=== PATIENT | male | born 1950 | race Caucasian/White ===

== ENCOUNTER → 2020-03-23 10:14 | Outpatient (CLI) | payer MEDICARE, SELFPAY ==
[2020-03-23 10:47] LABS: Basophils % 0.5 % (0.1-2.0); Eosinophils # 0.1 K/mm3 (0.0-0.4); Eosinophils % 1.9 % (0.1-12.0); Hematocrit 45.5 % (42.0-52.0); Hemoglobin 14.8 g/dL (14.1-18.0); Lymphocytes # 1.1 K/mm3 (0.7-4.5); Mean Corpuscular HGB Conc 32.5 g/dL (31.8-35.4); Mean Corpuscular Hemoglobin 30.4 pg (27.0-31.2); Mean Corpuscular Volume 93.5 fl (80-94); Mean Platelet Volume 11.7 fl (7.4-10.4); Monocytes # 0.5 K/mm3 (0.1-1.0); Monocytes % 7.7 % (1.7-9.3); Neutrophils # 4.4 K/mm3 (1.8-7.8); Neutrophils % 71.8 % (37.0-80.0); Platelet Count 162 K/mm3 (142-424); Red Blood Count 4.87 M/mm3 (4.60-6.20); White Blood Count 6.1 K/mm3 (4.8-10.8)
[2020-03-23 11:04] LABS: Chloride 105 mmol/L (98-107); Potassium 4.2 mmoL/L (3.5-5.1); Sodium 138 mmol/L (136-145)
[2020-03-23 11:07] LABS: Anion Gap 12.2 mEq/L (5-15); Blood Urea Nitrogen 11 mg/dl (9-20); Carbon Dioxide 25 mmol/L (22.0-30.0); Estimated Glomerular Filt Rate 83 ml/min (>60); GFR (African American) 101 ML/MIN (>60)
[2020-03-23 11:08] LABS: Calcium 10.2 mg/dl (8.4-10.2); Glucose 171 mg/dl (74-100)
== END ==
PROVIDERS: Visit Provider Urology
DX: I10 Essential (primary) hypertension; E78.5 Hyperlipidemia, unspecified; I25.10 Atherosclerotic heart disease of native coronary artery without angina pectoris; I48.91 Unspecified atrial fibrillation; I63.9 Cerebral infarction, unspecified; K21.9 Gastro-esophageal reflux disease without esophagitis; Z95.0 Presence of cardiac pacemaker
CPT/HCPCS: 36415; 80048; 85025

== ENCOUNTER → 2020-04-08 12:46 | Outpatient (CLI) | payer MEDICARE, SELFPAY ==
--- NOTE | 2020-04-08 12:58 | CA_ITS ---
APPROVED REPORT EXAM: Comprehensive 2D, Doppler, and color-flow Echocardiogram Lens Maker: Latoya Eisenberg CRT Ht: 5 ft 9 in Wt: 170lbs BSA: 1.93 BP: 141/75 mmHg Indications: CAD, Pacer, GERD, Hx CVA, Stents Atrial Fibrillation, Diabetes, Hyperlipidemia, Hypertension/HDD 2D Dimensions LVOT 1.90 cm (M/F) 1.5-2.5 M-Mode Dimensions RVDd 2.88 cm (0.9-2.6) LA Diam 3.45 cm (1.9-4.0) LVDd 4.07 cm (3.5-5.7) Ao Diam 3.76 cm (2.0-3.7) LVDs 2.70 cm (3.5-5.7) IVSd 1.57 cm (0.6-1.1) PWd 1.22 cm (0.6-1.1) EF (Teich) 63.00% FS 33.70% EDV (Teich) 72.90 mL ESV (Teich) 27.00 mL LV Diastology E Decel Time 150.00 (160-240 msec) E/A Ratio 0.62 MED E' 6.50 (< 7 cm/sec) MED A' 11.90 cm/s E'/MED E' Ratio 9.35 (>14) LAT E' 13.40 (<10 cm/sec) LAT A' 9.40 cm/s E/LAT E' Ratio 4.54 (>14) Aortic Valve AI PHT 530.00 ms AO Peak GR. 8.40 mmHg Mitral Valve MV E Max Joe. 61.00 (40-130 cm/s) MV A Velocity 98.00 (40-130 cm/s) E/A Ratio 0.62 MV Decel. Time 150.00 (160-240 ms) MV PHT 44.00 ms Pulmonary Valve PV Peak Velocity 84.00 (50-150 cm/s) Tricuspid Valve TR P. Velocity 236.00 cm/s RAP Estimate 10.00 mmHg RVSP 32.20 mmHg Left Ventricle Left atrium is mildly enlarged, left ventricle is normal size, visually estimated ejection fraction 50%, there is abnormal septal motion, the distal septum and apical wall appears to be hypokinetic. Doppler evidence of impaired LV relaxation seen, tissue Doppler is suboptimal. Right Ventricle Right atrium and right ventricle are normal size and contractility, there is pacemaker leads in the right ventricle. Aortic Valve Aortic valve is minimally thickened and fibrosed, there is no aortic stenosis, there is mild aortic insufficiency. Mitral Valve Mitral valve is minimally thickened, there is mild mitral regurgitation. Tricuspid Valve Tricuspid valve is grossly normal, there is trace tricuspid regurgitation, tricuspid regurgitation jet velocity is inadequate for calculation of the right ventricular systolic pressure. Pulmonic Valve Pulmonic valve is poorly visualized. Great Vessels Aortic root is normal size. Pericardium No significant pericardial effusion noted. Conclusion 1. Mildly enlarged left atrium, normal left ventricular size, mild concentric left ventricular hypertrophy, visually estimated ejection fraction is 50% with segmental wall motion abnormality described above, there is abnormal septal motion. Doppler evidence of impaired LV relaxation seen. 2. Mild aortic, mild mitral and trace tricuspid regurgitation. 3. No significant pericardial effusion noted. Electronically signed by : Yong Hernandez, 04/10/2020 13:42:57
== END ==
PROVIDERS: PCP Family Medicine; Visit Provider Urology
DX: E78.5 Hyperlipidemia, unspecified (principal); I10 Essential (primary) hypertension; I25.10 Atherosclerotic heart disease of native coronary artery without angina pectoris; I48.91 Unspecified atrial fibrillation; I51.7 Cardiomegaly; I63.9 Cerebral infarction, unspecified; K21.9 Gastro-esophageal reflux disease without esophagitis; Z95.0 Presence of cardiac pacemaker
CPT/HCPCS: 93306

== ENCOUNTER → 2020-06-18 07:04 | Outpatient (CLI) | payer MEDICARE, SELFPAY ==
--- NOTE | 2020-06-18 07:14 | NM_ITS ---
APPROVED REPORT Exam: Nuclear Stress Test Indication: chest pain..short of breath..fatigue Patient Location: Outpatient Stress Tech: Susana Claros [place] Tech:SALOMON Swartz RT(R)(N) Ht: 5 ft 8 in Wt: 162 lbs HR: 64 bpm BP: 137/69 mmHg BSA: 1.87 m2 BMI: 24.6 History: chest pain..short of breath..fatigue Procedure: Patient received a 0.4 mg of intravenous Lexiscan, resting heart rate 64 bpm, resting blood pressure 137/69 mmHg, with Lexiscan maximum heart rate achived was 72 bpm which is 85 % of the maximum predicted heart rate and blood pressure was 138/60 mmHg. Electrocardiogram Resting electrocardiogram showed AV sequentially paced rhythm with left bundle branch morphology. With Lexiscan there is less than 1.[address] segment depression noted from the baseline EKG. The EKG portion of the Lexiscan is nondiagnostic. Cardiac Stress and Resting SPECT Images: Cardiac Stress and Resting SPECT images were obtained using technetium 99m Myoview 31.6 mCi stress and 10.15 mCi at rest. Gated SPECT for analysis of segmental wall motion and calculation of the ejection fraction also done. Prone images were also obtained. Cardiac stress and resting SPECT images show a moderate to large sized area of fixed defect involving the anterior, anterior apical apical, inferior apical and anterolateral wall consistent with extensive area of myocardial scarring with minimal adams-infarct ischemia. Computer derived ejection fraction is 40% with marked hypokinesis involving the anterior, anterior apical, apex, inferior apical and anterolateral wall. Right ventricle is normal size and contractility. There is transient ischemic dilatation of the left ventricle seen, raising the concerns for presence of multivessel coronary artery disease. Conclusion: 1. The EKG portion of the Lexiscan is nondiagnostic. 2. Scintigraphic evidence of extensive myocardial scarring as described above, with minimal adams-infarct ischemia, there is transient ischemic dilatation of the left ventricle seen, raising concerns for presence of multivessel coronary artery disease, computer derived ejection fraction is 40% with segmental wall motion abnormality as described above. 3. Abnormal Lexiscan Myoview study. Electronically signed by : Yong Hernandez, 06/18/2020 16:06:16
--- NOTE | 2020-06-18 08:30 | CA_ITS ---
APPROVED REPORT Exam: Pharmacologic Technologist: Radha Anderson, Ht: 5 ft 9 in Wt: 170 lbs BSA: 1.93 m2 HR: 64 bpm BP: 137/69 mmHg Rhythm: AV SEQUENTIAL PACED RHYTHM Medical History Medical History: HTN, Diabetes Medications: Metformin,,,,, Carvedilol,,,,, Glipizide,,,,, Ramipril,,,,, INSULIN,,,,, CloPIdogrel,,,,, RIvaROXABAN,,,,, EMpagliflozin,,,,, PraAVASTATIN,,,,, Allergies: No known drug allergies Cardiac Risk Factors: HTN, SOB Stress Test Details Test: LEXISCAN HR Resting HR: 60 bpm Max Heart Rate (APMHR): 150.506248 bpm Max HR Achieved: 78 bpm Target HR (85% APMHR): 127.990887 bpm % of APMHR: 52.00 BP Resting BP: 137/69 mmHg Max BP: 141/64 mmHg Recovery BP: 140.0/68.0 mmHg ECG Clinical Exercise duration: 04:33 min Highest Stage Achieved: Exercise capacity: 1.0 METs Stress ECG Conclusion MILD CHEST TIGHTNESS, QUIZZY STOMACH HEADACHE. OCC VENTRICULAR ECTOPIC BEAT. NO SIGNIFICANT CHANGES. Electronically signed by : Yong Hernandez, 06/18/2020 15:44:22
== END ==
PROVIDERS: PCP Family Medicine; Visit Provider Urology
DX: R07.89 Other chest pain (principal); R06.02 Shortness of breath; R94.31 Abnormal electrocardiogram [ECG] [EKG]
CPT/HCPCS: 78452; 93017; A9502; J2785

== ENCOUNTER → 2020-06-29 18:13 | Outpatient (CLI) | payer MEDICARE, SELFPAY ==
[2020-06-29 18:56] LABS: Basophils % 0.8 % (0.1-2.0); Eosinophils # 0.2 K/mm3 (0.0-0.4); Eosinophils % 3.3 % (0.1-12.0); Hematocrit 44.5 % (42.0-52.0); Lymphocytes # 1.1 K/mm3 (0.7-4.5); Lymphocytes % 22.6 % (10-50); Mean Corpuscular HGB Conc 31.5 g/dL (31.8-35.4); Mean Corpuscular Hemoglobin 28.4 pg (27.0-31.2); Mean Corpuscular Volume 90.3 fl (80-94); Mean Platelet Volume 7.7 fl (7.4-10.4); Monocytes # 0.5 K/mm3 (0.1-1.0); Monocytes % 10.4 % (1.7-9.3); Neutrophils # 3.1 K/mm3 (1.8-7.8); Neutrophils % 62.8 % (37.0-80.0); Platelet Count 143 K/mm3 (142-424); Red Blood Count 4.93 M/mm3 (4.60-6.20); Red Cell Distribution Width 14.6 % (11.5-17.5); White Blood Count 4.9 K/mm3 (4.8-10.8)
[2020-06-29 19:42] LABS: Chloride 103 mmol/L (98-107); Sodium 137 mmol/L (136-145)
[2020-06-29 19:45] LABS: Anion Gap 13.2 mEq/L (5-15); Blood Urea Nitrogen 20 mg/dl (9-20); Carbon Dioxide 25 mmol/L (22.0-30.0); Estimated Glomerular Filt Rate 66 ml/min (>60); GFR (African American) 80 ML/MIN (>60); Potassium 4.2 mmoL/L (3.5-5.1)
[2020-06-29 19:46] LABS: Calcium 9.8 mg/dl (8.4-10.2); Glucose 164 mg/dl (74-100)
== END ==
PROVIDERS: Urology; PCP Family Medicine; Visit Provider Internal Medicine
DX: Z01.810 Encounter for preprocedural cardiovascular examination; Z20.822 Contact with and (suspected) exposure to COVID-19; R06.02 Shortness of breath; R94.39 Abnormal result of other cardiovascular function study; I20.9 Angina pectoris, unspecified; I48.11 Longstanding persistent atrial fibrillation; E11.9 Type 2 diabetes mellitus without complications; E78.49 Other hyperlipidemia; I51.7 Cardiomegaly; K21.9 Gastro-esophageal reflux disease without esophagitis; T82.120A Displacement of cardiac electrode, initial encounter; Z95.0 Presence of cardiac pacemaker; Z79.4 Long term (current) use of insulin; I63.89 Other cerebral infarction
CPT/HCPCS: 80048; 85025; U0003

== ENCOUNTER 2020-07-01 08:30 | Day surgery (SDC) | payer MEDICARE, SELFPAY ==
[2020-07-01] VITALS (11 sets, daily range): BP systolic 90–134; BP diastolic 43–97; PULSE 60–70; RESP 16–18; TEMP 36.4; O2SAT 86–100; BMI 25.5
--- NOTE | 2020-07-01 07:09 | IR_ITS ---
APPROVED REPORT Patient Location: Outpatient PROCEDURES Left heart catheterization Left ventriculogram Selective coronary angiogram INDICATION Angina pectoris, Abnormal Myoview, Known coronary disease Informed consent was obtained prior to the procedure. COMPLICATIONS None Estimated Blood Loss: Less than 10 mls TECHNIQUE One percent lidocaine used to anesthetize the right anterior aspect of the wrist. The right radial artery was accessed via the Seldinger technique. A 6 Surinamese sheath was placed in the right radial artery. 2.5 mg of verapamil, 800 mcg of nitroglycerin, 1mg Lidocaine and 5000 U Heparin were given through the arterial sheath. The trap catheter was also used to perform left heart catheterization, left ventriculogram and selective coronary angiogram. At the end of the procedure the sheath was removed good hemostasis was achieved using Traclet band, patient was transferred to the postop holding area in stable condition. ANGIOGRAPHIC RESULTS The left main artery Normal The left anterior descending artery Is proximally normal with stents in the mid segment which are widely patent. The second diagonal artery has a stent in the ostial proximal segment which is occluded with no collateralization The circumflex artery Is a nondominant vessel with mid vessel 10 to 20% stenosis The right coronary artery Is a large dominant vessel with mild mid vessel and distal 30% stenoses The LEWIS ventriculogram reveals 40% The left ventricular end-diastolic pressure 10 mmHg IMPRESSION Adequate coronary revascularization as described above with chronically occluded second diagonal artery Reduced ejection fraction Normal left ventricular end-diastolic pressure PLAN 1. Continue medical management 2. Consider TRAIN MASTER-P given pacemaker dependency and reduced ejection fraction Electronically signed by : Marco A Gavin, 07/01/2020 12:39:14
== END 2020-07-01 15:18 | disposition home or self-care (01) ==
LOC: CATHLAB 08:33
PROVIDERS: PCP Family Medicine; Visit Provider Internal Medicine
DX: I25.119 Atherosclerotic heart disease of native coronary artery with unspecified angina pectoris (principal); E11.9 Type 2 diabetes mellitus without complications; E78.49 Other hyperlipidemia; I10 Essential (primary) hypertension; I42.9 Cardiomyopathy, unspecified; I48.11 Longstanding persistent atrial fibrillation; I51.7 Cardiomegaly; K21.9 Gastro-esophageal reflux disease without esophagitis; R06.02 Shortness of breath; R94.39 Abnormal result of other cardiovascular function study; T82.120A Displacement of cardiac electrode, initial encounter; Z95.0 Presence of cardiac pacemaker
CPT/HCPCS: 93458; 99152; C1725; C1769; J1644; Q9967

== ENCOUNTER → 2022-05-25 08:32 | Outpatient (CLI) | payer MEDICARE, MEDICAID, SELFPAY ==
--- NOTE | 2022-05-25 08:36 | CA_ITS ---
APPROVED REPORT EXAM: Comprehensive 2D, Doppler, and color-flow Echocardiogram [employer] Technician: MENDEL Wilson, RVS Ht: 5 ft 9 in Wt: 176lbs BSA: 1.96 BP: 125/63 mmHg Rhythm: Atrial Fibrillation Indications: Pre- Pacer battery change, Pacer,CAD-stents, CVA, Falls, HTN, HLD,DM, Edema, Smoker, Afib, CP, SOB 2D Dimensions IVSd 1.01 cm M: 0.6-1.2 LVEF (Visual) 44.80 % PWd 1.07 cm M: 0.6 - 1.2 LVDd 4.27 cm M: 4.2 - 5.9 LVDs 3.33 cm M: 2.5 - 4.0 Aortic Root 3.73 cm M: 3.1 - 3.7 Left Atrium 3.42 cm M: 3.0 - 4.0 LVOT 1.82 cm (M/F) 1.5-2.5 M-Mode Dimensions RVDd 2.72 cm (0.9-2.6) LA Diam 3.66 cm (1.9-4.0) LVDd 5.69 cm (3.5-5.7) Ao Diam 3.91 cm (2.0-3.7) LVDs 3.56 cm (3.5-5.7) IVSd 1.04 cm (0.6-1.1) PWd 0.82 cm (0.6-1.1) EF (Teich) 59.60% EPSs 0.90 cm FS 31.90% EDV (Teich) 131.20 mL TAPSE 1.41 (<1.7) ESV (Teich) 53.00 mL LV Diastology E Decel Time 183.00 (160-240 msec) E/A Ratio 2.75 MED E' 8.60 (< 7 cm/sec) MED A' 5.40 cm/s E'/MED E' Ratio 9.93 (>14) Aortic Valve LVOT Max 91.00 (70-110 cm/s) LVOT VTI 21.42 cm AoV Peak Joe. 173.00 (50-130 cm/s) AI PHT 674.00 ms AO Peak GR. 11.90 mmHg AO Mean GR. 5.90 (<5 mmHg) AO VTI 32.71 (18-25 cm) QUINN (VTI) 1.70 (2.5-4.5 cm2) Mitral Valve MV A Velocity 31.00 (40-130 cm/s) E/A Ratio 2.75 MV Decel. Time 183.00 (160-240 ms) MV PHT 67.00 ms Pulmonary Valve PV Peak Velocity 94.00 (50-150 cm/s) AL End VMAX 118.00 cm/s Tricuspid Valve TR P. Velocity 236.00 cm/s RAP Estimate 10.00 mmHg RVSP 32.30 mmHg Left Ventricle Left atrium is mildly enlarged, left ventricle is normal size mild concentric left ventricular hypertrophy, estimated ejection fraction approximately 45%, there is marked hypokinesis involving distal septum and anterior apical wall. Grade 1 diastolic dysfunction seen without tissue Doppler evidence of raise left atrial pressure. Right Ventricle Right atrium and right ventricular mildly enlarged with normal contractility, pacemaker leads in the right ventricle. Aortic Valve Aortic valve is minimally thickened and calcified without aortic stenosis, there is mild aortic insufficiency. Mitral Valve Mitral valve is grossly normal, there is trace mitral regurgitation. Tricuspid Valve Tricuspid valve grossly normal, there is trace tricuspid regurgitation, tricuspid regurgitation jet velocity is inadequate for calculation of the right ventricular systolic pressure. Pulmonic Valve Pulmonic valve is poorly visualized. Great Vessels Aortic root is normal size. Inferior vena cava is poorly visualized. Pericardium No significant pericardial effusion noted. Conclusion 1. Mild biatrial enlargement, normal left ventricular size, mild concentric left ventricular hypertrophy, estimated ejection fraction 45% with segmental wall motion abnormality described above, grade 1 diastolic dysfunction seen without tissue Doppler evidence of raise left atrial pressure. 2. Mild aortic, trace mitral and tricuspid regurgitation. 3. No significant pericardial effusion noted. 4. Inferior vena cava is poorly visualized. Electronically signed by : Yong Hernandez MD 05/26/2022 05:53:50
== END ==
PROVIDERS: PCP Family Medicine; Visit Provider Internal Medicine
DX: I10 Essential (primary) hypertension (principal); I42.9 Cardiomyopathy, unspecified; R06.02 Shortness of breath; R29.6 Repeated falls; R42 Dizziness and giddiness; Z95.0 Presence of cardiac pacemaker; I20.8 Other forms of angina pectoris
CPT/HCPCS: 93306

== ENCOUNTER 2022-06-08 08:44 | Day surgery (SDC) | payer MEDICARE, MEDICAID, SELFPAY ==
--- NOTE | 2022-06-08 | IR_ITS ---
APPROVED REPORT Patient Location: Outpatient Boat Loader: SALOMON Carey RT (R) PROCEDURES 1. Removal of old generator. 2. Pocket revision for biventricular pacemaker generator with cardiac resynchronization therapy. 3. Placement of atrial sensing and pacing lead into the right atrial appendage. 4. Capping of chronic atrial 5. Placement of left ventricular sensing pacing lead via the coronary sinus. 6. Permanent cardiac resynchronization therapy with biventricular pacemaker. INDICATION Declining EF, 45%, 100% Ventricular pacer dependent, Fractured atrial lead Informed consent was obtained prior to the procedure. COMPLICATIONS None Estimated Blood Loss: Less than 10 ml TECHNIQUE 1% Lidocaine with epinephrine used to anesthetized the left anterior aspect of the chest. Scalpel was used to make the initial cutaneous incision and to dissect down tinto the fascia. Generator removed from pocket and then revised, creating a pocket for the HAND EMBROIDERER- pacemaker. The patient was then placed in Trendelenburg position and the subclavian vein was accessed three times via the Selinger technique, there are three wires in the vein. A 9.5 Ecuadorean sheath and dilator was then placed over one of the wires while keeping the other two wires in place within the subclavian vein. The dilator was removed from the sheath. Using fluoroscopic guidance, contrast was used to visualize the coronary sinus, the left ventricular lead was placed into the coronary sinus. Electronic interrogation proved acceptable thresholds and voltage within the lead. Using 3-0 silk, the left ventricular lead was then secured into place and sheath peeled away. A 6 Ecuadorean fresh sheath and dilator was placed over the existing wire. Using fluoroscopic guidance, the atrial lead was the placed into the right atrial appendage and screwed and secured in place. Electrical interrogation demonstrated acceptable thresholds and voltage number. The atrial lead was then secured into place using 3-0 silk. Chronic atrial lead was cut and capped. All 3 leads were connected to the generator. 1 gram of Ancef was used to flush the pocket. Following the pacemaker generator being secured to the fascia and in place, Monocryl was used to close the subcutaneous layers while marina were used to close the cutaneous layer. A pressure dressing was placed and the patient was transferred to the postop holding area in stable condition for postoperative care. INTERROGATION Explanted Generator Model number: [id number] Explanted Generator Serial number: [id number] Generator Model number: [id number] Generator Serial number: [id number] Capped Atrial lead model number: [id number] Capped Atrial lead serial number: [id number] Atrial lead model number: [id number] Atrial lead serial number: [id number] P-wave: 2.0mV Impedence: 460 ohms Threshold: 1.0V@0.4ms Right Ventricular lead model number: [id number] Right Ventricular lead serial number: [id number] Impedence: 400 ohms Threshold: 1.0V@0.4ms Left Ventricular lead model number: [id number] Left Ventricular lead serial number: [id number] Impedence: 1200 ohms Threshold: 0.5V@0.4ms No diaphragmatic stimulation at 10 volts. IMPRESSION 1. Successful removal of old generator. 2. Successful Pocket revison for biventricular pacemaker generator with cardiac resynchronization therapy. 3. Successful Placement of atrial sensing and pacing lead into the right atrial appendage. 4. Successful Capping of chronic atrial 5. Successful Placement of left ventricular sensing pacing lead via the coronary sinus. 6. Successful Permanent cardiac resynchronization therapy with biventricular pacemaker. PLAN 1. Post
[2022-06-08 08:53] VITALS: BMI 25.9
[2022-06-08 09:30] VITALS: PULSE 60
[2022-06-08 09:43] LABS: Basophils # 0.1 K/mm3 (0-0.2); Eosinophils # 0.1 K/mm3 (0.0-0.4); Eosinophils % 2.6 % (0.1-12.0); Hematocrit 44.4 % (42.0-52.0); Hemoglobin 14.2 g/dL (14.1-18.0); Lymphocytes % 19.9 % (10-50); Mean Corpuscular Volume 93.9 fl (80-94); Monocytes # 0.4 K/mm3 (0.1-1.0); Monocytes % 7.7 % (1.7-9.3); Neutrophils # 3.5 K/mm3 (1.8-7.8); Neutrophils % 68.9 % (37.0-80.0); Platelet Count 149 K/mm3 (142-424); Red Blood Count 4.74 M/mm3 (4.60-6.20); Red Cell Distribution Width 14.9 % (11.5-17.5); White Blood Count 5.1 K/mm3 (4.8-10.8)
[2022-06-08 09:49] LABS: Chloride 100 mmol/L (98-107); Potassium 4.6 mmoL/L (3.5-5.1); Sodium 135 mmol/L (136-145)
[2022-06-08 09:52] LABS: Anion Gap 14.6 mEq/L (5-15); Blood Urea Nitrogen 15 mg/dl (9-20); Calcium 10.4 mg/dl (8.4-10.2); Carbon Dioxide 25 mmol/L (22.0-30.0); Creatinine Clearance Estimated 75 mL/min (50-200); Estimated Glomerular Filt Rate 73 ml/min (>60); GFR (African American) 89 ML/MIN (>60); Glucose 223 mg/dl (74-100)
--- NOTE | 2022-06-08 12:09 | XR_ITS ---
FINAL REPORT CLINICAL HISTORY: Confirm pacemaker/AID placement COMPARISON: 01/22/2019 FINDINGS: SINGLE-VIEW CHEST There is mild cardiomegaly. Biventricular pacer is identified. The mediastinum is normal. There is little bit of scarring at the lung bases. The lungs are otherwise clear. There is no pneumothorax. IMPRESSION: No acute cardiopulmonary process. Reviewed, Interpreted and Dictated by Bossman Baron MD Transcribed by Yessica Azul Authenticated and [facility]
[2022-06-08 12:16] VITALS: BP 127/70; PULSE 60; RESP 20; O2SAT 95
--- NOTE | 2022-06-08 12:22 | P.PN_ITS ---
[facility] Disclaimer: The information contained in this section may have been updated after the patient was seen, as this information can be updated by other users. Medical History Abnormal cardiovascular stress test Cardiomyopathy Displacement of atrial pacemaker leads SOB (shortness of breath) Typical angina Family History (Updated 06/08/22 @ 09:31 by Lida Smith RN) Other Family history of cancer Social History (Updated 06/08/22 @ 09:32 by Lida Smith RN) Smoking Status: Current every day smoker tobacco type: smokeless tobacco second hand exposure: No alcohol intake: never substance use type: denies use current occupational status: retired Travel in the last 8 weeks: Inside the [place] household members: spouse housing: house current occupational exposures/hazards: No caffeine: Yes [facility] Anesthesia Checklist Patient Identification Patient Identification: Arm Band Structural Data Admitted From: Home Planned Operative Procedure/s: Pacemaker placement Consent for Planned Operative Procedure(s) Verified: Yes Verified Documents: Surgical Consent and History and Physical NPO Status Verified Time NPO: 00:00 Additional verifications Patient : No Anesthesia Reactions: No Hx Blood Transfusions: No Blood Transfusion Reaction: No Cephalosporin Allergy: No Previous Colonoscopy: Yes Airway Assessment C-Spine Mobility Assessed: Yes TMJ Mobility Assessed: Yes Dentition: Edentulous Neurological Assessment Level of Consciousness: Awake, Alert, Appropriate and Follows Commands Hx Seizures: No Numbness or tingling in extremities: No Anesthesia Plan Anesthesia Risk discussed: Yes ASA Class: III Anesthesia Type: MAC Preoperative Comments Pre-Operative Comments: 3 degree AV Block. Bradycardia 20-30s. NIDDM. Hypertension.
--- NOTE | 2022-06-08 12:27 | P.PN_ITS ---
[facility] Disclaimer: The information contained in this section may have been updated after the patient was seen, as this information can be updated by other users. Medical History Abnormal cardiovascular stress test Cardiomyopathy Displacement of atrial pacemaker leads SOB (shortness of breath) Typical angina Family History (Updated 06/08/22 @ 09:31 by Lida Smith RN) Other Family history of cancer Social History (Updated 06/08/22 @ 09:32 by Lida Smith RN) Smoking Status: Current every day smoker tobacco type: smokeless tobacco second hand exposure: No alcohol intake: never substance use type: denies use current occupational status: retired Travel in the last 8 weeks: [place] the [place] household members: spouse housing: house current occupational exposures/hazards: No caffeine: Yes [facility] Anesthesia Checklist Structural Data Planned Operative Procedure/s: Pacemaker placement Additional verifications Anesthesia Reactions: No Hx Blood Transfusions: No Blood Transfusion Reaction: No Cephalosporin Allergy: No Anesthesia Plan Anesthesia Type: MAC
--- NOTE | 2022-06-08 12:28 | P.PN_ITS ---
[facility] Disclaimer: The information contained in this section may have been updated after the patient was seen, as this information can be updated by other users. Medical History Abnormal cardiovascular stress test Cardiomyopathy Displacement of atrial pacemaker leads SOB (shortness of breath) Typical angina Family History (Updated 06/08/22 @ 09:31 by Lida Smith RN) Other Family history of cancer Social History (Updated 06/08/22 @ 09:32 by Lida Smith RN) Smoking Status: Current every day smoker tobacco type: smokeless tobacco second hand exposure: No alcohol intake: never substance use type: denies use current occupational status: retired Travel in the last 8 weeks: [place] the [place] household members: spouse housing: house current occupational exposures/hazards: No caffeine: Yes [facility] Anesthesia Checklist Structural Data Planned Operative Procedure/s: pacemaker placement Additional verifications Anesthesia Reactions: No Hx Blood Transfusions: No Blood Transfusion Reaction: No Cephalosporin Allergy: No Anesthesia Plan Anesthesia Type: MAC
--- NOTE | 2022-06-08 12:29 | EXP.ANES.CKL ---
[facility] Disclaimer: The information contained in this section may have been updated after the patient was seen, as this information can be updated by other users. Medical History Abnormal cardiovascular stress test Cardiomyopathy Displacement of atrial pacemaker leads Prostate cancer SOB (shortness of breath) Typical angina Surgical History History of cardiac catheterization Family History Other Family history of cancer Social History Smoking Status: Unknown if ever smoked second hand exposure: No alcohol intake: never substance use type: denies use current occupational status: retired Travel in the last 8 weeks: [place] the [place] household members: spouse housing: house current occupational exposures/hazards: No caffeine: Yes [facility] Anesthesia Checklist Patient Identification Patient Identification: Arm Band Structural Data Admitted From: Home Planned Operative Procedure/s: biventricular pacemaker Verified Documents: Surgical Consent and History and Physical NPO Status Verified Time NPO: 00:00 Additional verifications Patient : No Anesthesia Reactions: No Hx Blood Transfusions: No Blood Transfusion Reaction: No Cephalosporin Allergy: No Previous Colonoscopy: No Airway Assessment C-Spine Mobility Assessed: Yes TMJ Mobility Assessed: Yes Dentition: Edentulous Neurological Assessment Level of Consciousness: Awake and Appropriate Hx Seizures: No Numbness or tingling in extremities: No Anesthesia Plan ASA Class: III Anesthesia Type: MAC
[2022-06-08 12:30] VITALS: BP 142/75; PULSE 60; RESP 18; O2SAT 99
--- NOTE | 2022-06-08 12:31 | P.PN_ITS ---
[facility] Disclaimer: The information contained in this section may have been updated after the patient was seen, as this information can be updated by other users. Medical History Abnormal cardiovascular stress test Cardiomyopathy Displacement of atrial pacemaker leads SOB (shortness of breath) Typical angina Family History (Updated 06/08/22 @ 09:31 by Lida Smith RN) Other Family history of cancer Social History (Updated 06/08/22 @ 09:32 by Lida Smith RN) Smoking Status: Current every day smoker tobacco type: smokeless tobacco second hand exposure: No alcohol intake: never substance use type: denies use current occupational status: retired Travel in the last 8 weeks: [place] the [place] household members: spouse housing: house current occupational exposures/hazards: No caffeine: Yes [facility] Anesthesia Checklist Patient Identification Patient Identification: Arm Band Structural Data Admitted From: Home Planned Operative Procedure/s: Pacemaker placement Consent for Planned Operative Procedure(s) Verified: Yes Verified Documents: Surgical Consent and History and Physical NPO Status Verified Time NPO: 00:00 Additional verifications Patient : No Anesthesia Reactions: No Hx Blood Transfusions: No Blood Transfusion Reaction: No Cephalosporin Allergy: No Previous Colonoscopy: No Airway Assessment C-Spine Mobility Assessed: Yes TMJ Mobility Assessed: Yes Dentition: Edentulous Neurological Assessment Level of Consciousness: Awake, Alert, Appropriate and Follows Commands Hx Seizures: No Numbness or tingling in extremities: No Anesthesia Plan Anesthesia Risk discussed: Yes ASA Class: III Anesthesia Type: MAC Preoperative Comments Pre-Operative Comments: Third degree AV block. NIDDM. Hypertension.
[2022-06-08 12:45] VITALS: BP 142/77; PULSE 60; RESP 17; O2SAT 100
[2022-06-08 13:00] VITALS: BP 151/72; PULSE 60; RESP 18; O2SAT 99
== END 2022-06-08 13:59 | disposition home or self-care (01) ==
LOC: CATHLAB 08:46
PROVIDERS: PCP Family Medicine; Visit Provider Internal Medicine
DX: I42.9 Cardiomyopathy, unspecified (principal)
CPT/HCPCS: 71045; 80048; 85025; C1769; C1898; C1900; C2621; Q9967

== ENCOUNTER 2022-06-09 11:06 | Inpatient (IN) | payer MEDICARE, MEDICAID, SELFPAY ==
[2022-06-09] VITALS (23 sets, daily range): BP systolic 78–182; BP diastolic 52–97; PULSE 65–97; RESP 16–20; TEMP 35.8–38.4; O2SAT 86–100; BMI 26.6; BMI 26.2
--- NOTE | 2022-06-09 | IR_ITS ---
APPROVED REPORT Patient Location: Emergent Spray Gunner: SALOMON Hinojosa RT (R) PROCEDURES Emergent pericardiocentesis Placement of pericardial pigtail catheter drain INDICATION Pericardial effusion, Cardiac tamponade Informed consent was obtained prior to the procedure. COMPLICATIONS None TECHNIQUE Patient was taken to the Refrigeration Service Technician sterilely prepped and given Versed fentanyl and propofol under anesthesia as direct care. 1% lidocaine was used anesthetize the subxiphoid area and the pericardial space was accessed via the Salinger technique. A wire was then advanced and a dilator was placed into the pericardial space to create a tract. A pigtail catheter was then advanced and 400 cc of bloody aspirate was removed. Upon removal of the foreign cc there was complete resolution of the pericardial effusion. Patient tolerated the procedure well. At the end of the procedure the pigtail catheter was secured in place with 2-0 silk. Patient was transferred to the postop holding her stable condition with plans to admit IMPRESSION Postcardiac resynchronization therapy pacemaker induced pericardial effusion with subsequent cardiac tamponade Successful pericardiocentesis with complete resolution of cardiac tamponade Persistence of pericardial drain within the pericardial space PLAN 1. Supportive care for the next 24 hours 2. Repeat echocardiogram in the morning to assess for recurrence of pericardial effusion 3. Hold all anticoagulation 4. Keep pericardial drain to gravity assist Electronically signed by : Marco A Gavin MD 06/09/2022 11:54:35
--- NOTE | 2022-06-09 10:57 | ECG_ITS ---
APPROVED REPORT Exam: Resting ECG HR:71 bpm ECG Measurements Heart Rate 71 AXES OK 158 P -48 QRSd 142 QRS 196 QT 411 T -43 QTc 434 Conclusion ELECTRONIC VENTRICULAR PACEMAKER ABNORMAL RHYTHM ECG UNCONFIRMED REPORT Electronically signed by : Ramirez Last MD 06/10/2022 17:02:39
--- NOTE | 2022-06-09 11:06 | PC.NURSE ---
Isabell spoke with Dr. Gavin and Dr. Gavin is wanting patient to come to cathlab at this time.
--- NOTE | 2022-06-09 11:07 | HMH.EDGENADL ---
Discharge Plan Prescriptions Prescriptions: No Action ICaps [id number] aidx-cg-mp-unit tablet extended release 1 tab PO DAILY Lupron Depot (3 month) 11.25 mg syringe kit 11.25 mg IM [id number] metformin 500 mg tablet 1,000 mg PO BID Hold Instructions: Resume on 06/10/22. Novolog FlexPen U-100 Insulin 100 unit/mL insulin pen 10 unit SUB-Q QPM PRN (Reason: diabetes) glipizide 10 mg tablet 5 mg PO BID pravastatin 20 mg tablet 80 mg PO QHS Jardiance 25 mg tablet 10 mg PO DAILY carvedilol [Coreg] 12.5 mg tablet 12.5 mg PO BID Rx Instructions: must administer with a meal/food ramipril 5 mg capsule See Rx Instructions .ROUTE .COMPLEX Rx Instructions: TAKE 1 CAPSULE BY MOUTH EVERY DAY ramipril 10 mg capsule See Rx Instructions .ROUTE .COMPLEX Rx Instructions: TAKE 1 CAPSULE ONCE DAILY Eliquis 5 mg tablet 5 mg PO BID Discharge ED Provider: Zohra Ivey General Adult HPI General Stated complaint: Surgical problem Time Seen by Provider: 06/09/22 11:08 History of Present Illness HPI narrative: 71-year-old male with on Eliquis presents from outside hospital with hypotension status post pacemaker placement yesterday by Dr. Gavin. States that he went to the emergency department because he was having increasing bleeding from his site and they stated that he had no infectious signs or symptoms had an elevated lactate talk to Dr. Gavin who accepted him to our emergency department for my evaluation. Patient has no significant symptoms right now other than some mild shortness of breath he had no fever no cough no other infectious symptoms. He has not had any of his Eliquis for for 5 days he states. Related Data Home Medications Medication Instructions Recorded Confirmed metformin 500 mg tablet 1,000 mg PO BID sugar 07/07/17 06/08/22 insulin aspart U-100 100 unit/mL 10 unit SUB-Q QPM PRN diabetes 01/18/18 06/08/22 (3 mL) subcutaneous pen (Novolog FlexPen U-100 Insulin aspart) glipizide 10 mg tablet 5 mg PO BID Diabetes 01/22/19 06/08/22 empagliflozin 25 mg tablet 10 mg PO DAILY unknown 03/11/19 06/08/22 (Jardiance) [id number]-min 1 tab PO DAILY Supplement 03/11/19 06/08/22 3,300 unit-5 mg-200mg-75 unit tablet ER (ICaps) leuprolide (3 month) 11.25 mg (3 11.25 mg IM [id number] . 01/06/21 06/08/22 month) intramuscular syringe kit (Lupron Depot) pravastatin 20 mg tablet 80 mg PO QHS Cholesterol 01/06/21 06/08/22 apixaban 5 mg tablet (Eliquis) 5 mg PO BID . 06/08/22 06/08/22 carvedilol 12.5 mg tablet (Coreg) 12.5 mg PO BID . 06/08/22 06/08/22 ramipril 10 mg capsule See Rx Instructions .Route 06/08/22 06/08/22 .COMPLEX . ramipril 5 mg capsule See Rx Instructions .Route 06/08/22 06/08/22 .COMPLEX . Allergies Allergy/AdvReac Type Severity Reaction Status Date / Time No Known Allergies Allergy Verified 05/24/22 10:29 [facility] Disclaimer: The information contained in this section may have been updated after the patient was seen, as this information can be updated by other users. Medical History Abnormal cardiovascular stress test Cardiomyopathy Displacement of atrial pacemaker leads SOB (shortness of breath) Typical angina Family History (Updated 06/08/22 @ 09:31 by Lida Smith RN) Other Family history of cancer Social History (Updated 06/08/22 @ 09:32 by Lida Smith RN) Smoking Status: Current every day smoker tobacco type: smokeless tobacco second hand exposure: No alcohol intake: never substance use type: denies use current occupational status: retired Travel in the last 8 weeks: Inside the [place] household members: spouse housing: house current occupational exposures/hazards: No caffeine: Yes ROS Obtained: Yes All systems reviewed & no additional complaints except as documente
--- NOTE | 2022-06-09 11:11 | PC.NURSE ---
Patient transported with RN on zoll emergently to lab tester via stretcher per Dr. Gavin's request. at bedside. has personal belongings.
[2022-06-09 11:15] LABS: Coronavirus 19, PCR Not Detected (NotDetected); Influenza A, PCR Not Detected (NotDetected); Influenza B, PCR Not Detected (NotDetected)
--- NOTE | 2022-06-09 11:17 | PC.NURSE ---
Upon arrival to ED, pt A&O x 4, GCS 15. Pale, delayed cap refill with weak radial pulses. HR 72, paced. +weakness with intermittent shortness of air. Clothing removed and warm blankets placed. 20G RAC noted with 2L administered CLINICAL NURSING INSTRUCTOR. at bedside. Personal belongings [place]
[2022-06-09 12:52] LABS: Basophils % 0.2 % (0.1-2.0); Eosinophils # 0.1 K/mm3 (0.0-0.4); Eosinophils % 0.5 % (0.1-12.0); Hematocrit 37.3 % (42.0-52.0); Hemoglobin 11.4 g/dL (14.1-18.0); Lymphocytes # 0.5 K/mm3 (0.7-4.5); Lymphocytes % 5.6 % (10-50); Mean Corpuscular HGB Conc 30.7 g/dL (31.8-35.4); Mean Corpuscular Hemoglobin 29.5 pg (27.0-31.2); Mean Corpuscular Volume 96.2 fl (80-94); Mean Platelet Volume 7.1 fl (7.4-10.4); Monocytes # 0.4 K/mm3 (0.1-1.0); Monocytes % 4.9 % (1.7-9.3); Neutrophils # 7.7 K/mm3 (1.8-7.8); Neutrophils % 88.7 % (37.0-80.0); Platelet Count 123 K/mm3 (142-424); Red Blood Count 3.88 M/mm3 (4.60-6.20); Red Cell Distribution Width 14.8 % (11.5-17.5); White Blood Count 8.7 K/mm3 (4.8-10.8)
--- NOTE | 2022-06-09 12:53 | PC.NURSE ---
Patient arrived to the floor at this time
[2022-06-09 12:54] LABS: MANUAL DIFFERENTIAL MANUAL DIFFERENTIAL (MANUAL DIFF)
[2022-06-09 12:56] LABS: Chloride 107 mmol/L (98-107); Potassium 4.8 mmoL/L (3.5-5.1); Sodium 136 mmol/L (136-145)
[2022-06-09 12:58] LABS: Blood Urea Nitrogen 15 mg/dl (9-20)
[2022-06-09 12:59] LABS: Alanine Aminotransferase 139 U/L (12-78); Albumin Level 3.3 g/dl (3.5-5.0); Albumin/Globulin Ratio 1.5 (1.1-1.8); Alkaline Phosphatase 100 U/L (38-126); Anion Gap 12.8 mEq/L (5-15); Aspartate Amino Transferase 185 U/L (17-59); Bilirubin,Total 1.1 mg/dl (0.2-1.3); Carbon Dioxide 21 mmol/L (22.0-30.0); Creatinine Clearance Estimated 68 mL/min (50-200); Estimated Glomerular Filt Rate 66 ml/min (>60); GFR (African American) 80 ML/MIN (>60); Globulin 2.2 g/dL (1.3-3.2); Glucose 335 mg/dl (74-100); Total Protein,Serum 5.5 g/dl (6.3-8.2)
[2022-06-09 13:06] LABS: Activated Partial Thrombo Time 25.6 seconds (22.8-30.6); INR 1.16 (0.9-1.1); Prothrombin Time 12.4 seconds (10.1-12.5)
[2022-06-09 13:15] LABS: Lymphocytes % 8 % (10-50); Monocytes % 3 % (2-9); Neutrophils % 89 % (42-76); Platelet Estimate Slight Decrease; RBC Morphology Normal; Total Cells Counted 100
--- NOTE | 2022-06-09 13:42 | PC.NURSE ---
[address] Diaz via phone that pt was on unit at this time. states he will make rounds on pt. pt requesting food at this time. ok to give pt cardiac diet at this time per dr diaz
--- NOTE | 2022-06-09 13:47 | EXP.HP ---
History of Present Illness *Admission Date: 06/09/22 *Reason for visit:: pericardial effusion *History of present illness: Mr. Pollock is a 71 year old male with a past medical history of symptomatic bradycardia s/p ppm, CAD s/p PETEY placed in 2019, atrial fibrillation on Eliquis, CVA, HTN, HLD, T2DM, prostate cancer on leuprolide and sarcoidosis who presented to the ED because of bleeding from his surgical wound. Yesterday he had an elective replacement of his pacemaker with a biventricular pacemaker for cardiac resynchronization therapy. He had held his Eliquis 4-5 days prior to this procedure. Despite this measure he presented with profuse bleeding from his surgical site. An echocardiogram revealed cardiac tamponade. Emergent pericardiocentesis was performed and 400cc of bloody aspirate was removed with complete resolution of cardiac tamponade; a pigtail drain in the pericardial space was secured in place with a suture. His initial symptoms of pressure in his chest and dyspnea have significantly decreased. [facility] Disclaimer: The information contained in this section may have been updated after the patient was seen, as this information can be updated by other users. Medical History (Updated 06/09/22 @ 15:18 by Mciah Diaz MD) Abnormal cardiovascular stress test Cardiomyopathy Displacement of atrial pacemaker leads Prostate cancer SOB (shortness of breath) Typical angina Surgical History (Updated 06/09/22 @ 14:42 by Trina Cyr RN) History of cardiac catheterization Family History (Updated 06/08/22 @ 09:31 by Lida Smith RN) Other Family history of cancer Social History (Updated 06/09/22 @ 14:43 by Trina Cyr RN) Smoking Status: Unknown if ever smoked second hand exposure: No alcohol intake: never substance use type: denies use current occupational status: retired Travel in the last 8 weeks: Inside the [place] household members: spouse housing: house current occupational exposures/hazards: No caffeine: Yes Review of Systems Review of Systems Review of systems (narrative): All systems were reviewed and are negative except what is mentioned in the HPI. Meds Home Medications and Allergies Home Medications Medication Instructions Recorded Confirmed Type metformin 500 mg tablet 1,000 mg PO BID sugar 07/07/17 06/08/22 History insulin aspart U-100 100 unit/mL 10 unit SUB-Q QPM PRN diabetes 01/18/18 06/08/22 History (3 mL) subcutaneous pen (Novolog FlexPen U-100 Insulin aspart) glipizide 10 mg tablet 5 mg PO BID Diabetes 01/22/19 06/08/22 History empagliflozin 25 mg tablet 25 mg PO DAILY Heart disease 03/11/19 06/09/22 History (Jardiance) [id number]-[id number]-min 1 tab PO DAILY Supplement 03/11/19 06/08/22 History 3,300 unit-5 mg-200mg-75 unit tablet ER (ICaps) leuprolide (3 month) 11.25 mg (3 11.25 mg IM [id number] . 01/06/21 06/08/22 History month) intramuscular syringe kit (Lupron Depot) apixaban 5 mg tablet (Eliquis) 5 mg PO BID . 06/08/22 06/08/22 History carvedilol 12.5 mg tablet (Coreg) 12.5 mg PO BID Heart disease 06/08/22 06/09/22 History ramipril 10 mg capsule 10 mg PO DAILY Heart disease 06/08/22 06/09/22 History cyanocobalamin (vitamin B-12) 1,000 mcg PO DAILY Supplement 06/09/22 06/09/22 History 1,000 mcg tablet pravastatin 80 mg tablet 80 mg PO HS Cholesterol 06/09/22 06/09/22 History New Prescriptions to Start Prescriptions: Allergies Allergy/AdvReac Type Severity Reaction Status Date / Time No Known Allergies Allergy Verified 05/24/22 10:29 Exam Data for Last 24 hours Vital signs and Labs for Last 24 Hours: Temp Pulse Resp BP Pulse Ox 96.5 F L 70 18 182/96 H 96 06/09/22 12:08 06/09/22 12:45 06/09/22 12:45 06/09/22 12:45 06/09/22 12:45 Laboratory Results - last 24 hr 06/09/22 11:09: SARS-CoV-2 (PCR) Not detected, Influenza A Untype (PCR) Not detected, Influenza Type B (PCR) Not detec
--- NOTE | 2022-06-09 13:50 | EXP.CARD.CON ---
History of Present Illness History of Present Illness Consult date: 06/09/22 Requesting physician: Micah Diaz Chief complaint: Pericardial effusion/cardiac tamponade post procedure Additional Medical History:: 1. Pacemaker in situ A. Upgrade to biventricular pacemaker, 06/08/2022 due to cardiomyopathy with EF 45% B. Postop pericardial effusion with cardiac tamponade, 06/09/2022, status post pericardiocentesis with 400 mL removed 2. History of atrial fibrillation, chronic A. Xarelto therapy 3. Diabetes mellitus, controlled per PCP 4. Sarcoidosis with prior evaluation and treatment at [facility] 5. Hypertension A. Echocardiogram 05/26/2022, mild biatrial enlargement, normal LV size with mild concentric LVH, EF 45% with segmental wall motion abnormalities (marked hypokinesis involving the distal septum and anteroapical wall). Grade 1 diastolic dysfunction. Mild AR with trace MR and TR 6. History of prostate cancer 7. Hyperlipidemia 8. Coronary artery disease A. NSTEMI, 03/20/2018, PETEY to circumflex, [place], [place] B. Left heart catheterization, 07/01/2020, adequate revascularization with normal left main, patent stents in the proximal and mid LAD, proximal segment of the second diagonal is occluded with no collateralization, 10 to 20% stenosis mid circumflex which is nondominant, large dominant RCA with mild disease with distal 30% stenosis. EF 40% with EDP 10 mmHg. History of present illness: 71-year-old white male, with recent interruption of long-term Eliquis therapy for history of atrial fibrillation, presented to the emergency department today from outside hospital with hypotension status post pacemaker upgrade yesterday. Patient was found to have pericardial effusion with cardiac tamponade and subsequently was taken to the cardiac Anode Crew Supervisor where pericardiocentesis was performed with 400 cc of blood was withdrawn. Pericardial drain was placed with significant improvement in symptoms. Hemoglobin noted to be 13 at outside hospital with repeat lab showing hemoglobin 11.4 at our facility. At the time of my exam the patient is resting in bed comfortably with some discomfort described across the sternum. There has been approximately 80 to 100 mL of fluid since placement of the pericardial drain. [facility] Disclaimer: The information contained in this section may have been updated after the patient was seen, as this information can be updated by other users. Medical History Abnormal cardiovascular stress test Cardiomyopathy Displacement of atrial pacemaker leads SOB (shortness of breath) Typical angina Family History (Updated 06/08/22 @ 09:31 by Lida Smith, RN) Family history of cancer Social History (Updated 06/08/22 @ 09:32 by Lida Smith RN) Smoking Status: Unknown if ever smoked second hand exposure: No alcohol intake: never substance use type: denies use current occupational status: retired Travel in the last 8 weeks: [place] the [place] household members: spouse housing: house current occupational exposures/hazards: No caffeine: Yes Review of Systems Review of Systems Review of systems:: pertinent systems reviewed and negative unless documented below *Cardiovascular Cardiovascular: Reports chest pain and Reports dyspnea *Respiratory Respiratory: Reports dyspnea Exam Data for Last 24 hours Vital signs and Labs for Last 24 Hours: Temp Pulse Resp BP Pulse Ox 96.5 F L 70 18 182/96 H 96 06/09/22 12:08 06/09/22 12:45 06/09/22 12:45 06/09/22 12:45 06/09/22 12:45 Laboratory Results - last 24 hr 06/09/22 11:09: SARS-CoV-2 (PCR) Not detected, Influenza A Untype (PCR) Not detected, Influenza Type B (PCR) Not detected 06/09/22 12:40: WBC 8.7 D, RBC 3.88 L, Hgb 11.4 L, Hct 37.3 L, MCV 96.2 H, MCH 29.5, MCHC 30.7 L, RDW 14.8, Plt Count 123 L, MPV 7.1 L, Neut % (Auto) 88.7 H, Lymph % (Auto) 5.6
--- NOTE | 2022-06-09 13:58 | PC.NURSE ---
1338 notified Zohra ARIAS face to face that pt was c/o pain radiating from left chest to right chest. pain 6/10. pt is paced in the 80's on the monitor, bp is 144/60. per Nitin give pt morphine 2mg iv x 1 now. medication verified with June Cyr RN and admin at 1350 before in comp.
--- NOTE | 2022-06-09 14:08 | DIET.NUTRFU ---
Patient admitted on cardiac diet, he requested ham/cheese on white bread. This is not a recommended selection on cardiac diet, he typically does add salt to foods also. I left him a cardiac menu for dinner and he seemed willing to try it. If continues to request foods not on cardiac will review to liberialize diet to regular. He had pacemaker placed yesterday with some hypotension issues. He is also diabetic, on metformin and insulin at home. His BS was 119, will continue to monitor and adjust diet as needed. Will okay white bread for any sandwiches in the future
--- NOTE | 2022-06-09 16:28 | PC.NURSE ---
Addendum entered by Sindy Rich RN 06/09/22 18:50: O2 decreased to 1lpm at 1850 r/t sats 97%. pt sleeping at this time Original Note: 1550 o2 applied to pt r/t sleeping following morphine and percocet administration. pt o2 sats noted to frop to the low to mid 80's
[2022-06-09 17:13] LABS: POC Glucose,Bedside 221 (70-110)
[2022-06-09 20:36] LABS: POC Glucose,Bedside 135 (70-110)
[2022-06-09 22:24] LABS: C-Reactive Protein 75.3 mg/L (0-4)
[2022-06-09 22:38] LABS: Erythrocyte Sedimentation Rate 17 mm/hr (0-20); Procalcitonin 0.916 ng/mL (0.0-2.0)
[2022-06-10] VITALS (12 sets, daily range): BP systolic 92–122; BP diastolic 46–61; PULSE 60–82; RESP 18–21; TEMP 36.8–38.3; O2SAT 90–97; BMI 25.2
[2022-06-10 00:19] LABS: Microscopic, Urine URINE MICROSCOPIC (MICROSCOPIC)
[2022-06-10 00:34] LABS: Appearance,Urine CLEAR (Clear); Bilirubin,Urine Negative (Negative); Blood, Urine 1+ (Negative); Color,Urine YELLOW (Yellow); Glucose,Urine (UA) 3+ (Negative); Ketones,Urine Negative (Negative); Leukocyte Esterase,Urine Negative (Negative); Nitrate,Urine Negative (Negative); PH,Urine 5.5 (5.0-8.5); Protein,Urine Negative (Negative); Specific Gravity, Urine 1.025 (1.005-1.030); Urobilinogen,Urine 0.2 EU/dl (0.2)
[2022-06-10 06:09] LABS: Basophils % 0.1 % (0.1-2.0); Eosinophils % 0.4 % (0.1-12.0); Hematocrit 36.3 % (42.0-52.0); Hemoglobin 11.8 g/dL (14.1-18.0); Lymphocytes # 0.8 K/mm3 (0.7-4.5); Lymphocytes % 9.2 % (10-50); Mean Corpuscular HGB Conc 32.5 g/dL (31.8-35.4); Mean Corpuscular Hemoglobin 30.2 pg (27.0-31.2); Mean Platelet Volume 8.4 fl (7.4-10.4); Monocytes # 0.8 K/mm3 (0.1-1.0); Monocytes % 8.5 % (1.7-9.3); Neutrophils # 7.5 K/mm3 (1.8-7.8); Neutrophils % 81.9 % (37.0-80.0); Platelet Count 102 K/mm3 (142-424); Red Blood Count 3.91 M/mm3 (4.60-6.20); Red Cell Distribution Width 15.1 % (11.5-17.5); White Blood Count 9.2 K/mm3 (4.8-10.8)
[2022-06-10 06:34] LABS: Chloride 106 mmol/L (98-107); Potassium 4.6 mmoL/L (3.5-5.1); Sodium 138 mmol/L (136-145)
[2022-06-10 06:36] LABS: Blood Urea Nitrogen 21 mg/dl (9-20); Creatinine Clearance Estimated 71 mL/min (50-200); Estimated Glomerular Filt Rate 73 ml/min (>60); GFR (African American) 89 ML/MIN (>60)
[2022-06-10 06:37] LABS: Alanine Aminotransferase 96 U/L (12-78); Albumin Level 3.6 g/dl (3.5-5.0); Albumin/Globulin Ratio 1.8 (1.1-1.8); Alkaline Phosphatase 92 U/L (38-126); Anion Gap 15.6 mEq/L (5-15); Aspartate Amino Transferase 69 U/L (17-59); Bilirubin,Total 0.7 mg/dl (0.2-1.3); Calcium 9.2 mg/dl (8.4-10.2); Carbon Dioxide 21 mmol/L (22.0-30.0); Glucose 147 mg/dl (74-100); Total Protein,Serum 5.6 g/dl (6.3-8.2)
--- NOTE | 2022-06-10 06:46 | PC.NURSE ---
NO ACUTE CHANGES OVER NIGHT PERICARDIAL DRAIN REMAINS IN PLACE. NO NEW DRAINAGE OVER NIGHT. REMAINS ON 2L NASAL CANNULA AND IS TOLERATING WELL. VSS. PT HAS BEEN RESTLESS THIS SHIFT AND HAS TRIED TO GET OUT OF BED. BED ALARM IN PLACE. AT BEDSIDE. PT HAS BEEN INCONTINENT AT TIMES. PT WAS FEBRILE AT THE BEGINNING OF THE SHIFT. TEMP IS NOW NORMAL. OTHER VITAL SIGNS STABLE.
--- NOTE | 2022-06-10 08:12 | EXP.CARD.PN ---
Subjective Subjective Date: 06/10/22 Time: 08:12 Principal diagnosis: Pericardial effusion/cardiac tamponade Interval history: 71-year-old white male in bed in no acute distress. Nursing relates no significant drainage overnight. Patient only had approximately 80 to 90 cc of bloody fluid out yesterday with no further drainage overnight. Telemetry shows paced rhythm. Exam Data for Last 24 hours Vital signs and Labs for Last 24 Hours: Temp Pulse Resp BP Pulse Ox 98.4 F 68 18 122/61 93 L 06/10/22 03:41 06/10/22 06:00 06/10/22 06:00 06/10/22 06:00 06/10/22 06:00 Laboratory Results - last 24 hr 06/09/22 11:09: SARS-CoV-2 (PCR) Not detected, Influenza A Untype (PCR) Not detected, Influenza Type B (PCR) Not detected 06/09/22 12:40: WBC 8.7 D, RBC 3.88 L, Hgb 11.4 L, Hct 37.3 L, MCV 96.2 H, MCH 29.5, MCHC 30.7 L, RDW 14.8, Plt Count 123 L, MPV 7.1 L, Neut % (Auto) 88.7 H, Lymph % (Auto) 5.6 L, [place] % (Auto) 4.9, Eos % (Auto) 0.5, Baso % (Auto) 0.2, Neut # (Auto) 7.7, Lymph # (Auto) 0.5 L, [place] # (Auto) 0.4, Eos # (Auto) 0.1, Baso # (Auto) 0.0, Total Counted 100, Neutrophils % (Manual) 89 H, Lymphocytes % (Manual) 8 L, Monocytes % (Manual) 3, Platelet Estimate Slight decrease, RBC Morphology Normal 06/09/22 12:40: PT 12.4, INR 1.16 H, APTT 25.6 06/09/22 12:40: Sodium 136, Potassium 4.8, Chloride 107, Carbon Dioxide 21 L, Anion Gap 12.8, BUN 15, Creatinine 1.10, Estimated Creat Clear 68, Estimated GFR 66, Est GFR ( Amer) 80, Glucose 335 H, Calcium 8.0 L, Total Bilirubin 1.1, AST 185 H, ALT 139 H, Alkaline Phosphatase 100, Total Protein 5.5 L, Albumin 3.3 L, Globulin 2.2, Albumin/Globulin Ratio 1.5 06/09/22 12:40: Blood Type A Negative, Antibody Screen Negative 06/09/22 17:06: POC Glucose 221 H 06/09/22 20:26: POC Glucose 135 H 06/09/22 21:42: Urine Color Yellow, Urine Appearance Clear, Urine pH 5.5, Ur Specific [place] 1.025, Urine Protein Negative, Urine Glucose (UA) 3+, Urine Ketones Negative, Urine Blood 1+, Urine Nitrate Negative, Urine Bilirubin Negative, Urine Urobilinogen 0.2, Ur Leukocyte Esterase Negative, Urine RBC 3-5, Urine WBC None, Ur Squamous Epith Cells None, Urine Bacteria None 06/09/22 22:00: ESR 17 06/09/22 22:00: C-Reactive Protein 75.3 H, Procalcitonin 0.916 06/10/22 05:31: WBC 9.2, RBC 3.91 L, Hgb 11.8 L, Hct 36.3 L, MCV 93.0, MCH 30.2, MCHC 32.5, RDW 15.1, Plt Count 102 L, MPV 8.4, Neut % (Auto) 81.9 H, Lymph % (Auto) 9.2 L, [place] % (Auto) 8.5, Eos % (Auto) 0.4, Baso % (Auto) 0.1, Neut # (Auto) 7.5, Lymph # (Auto) 0.8, [place] # (Auto) 0.8, Eos # (Auto) 0.0, Baso # (Auto) 0.0 06/10/22 05:31: Sodium 138, Potassium 4.6, Chloride 106, Carbon Dioxide 21 L, Anion Gap 15.6 H, BUN 21 H D, Creatinine 1.00, Estimated Creat Clear 71, Estimated GFR 73, Est GFR ( Amer) 89, Glucose 147 H D, Calcium 9.2, Total Bilirubin 0.7, AST 69 H D, ALT 96 H D, Alkaline Phosphatase 92, Total Protein 5.6 L, Albumin 3.6, Globulin 2.0, Albumin/Globulin Ratio 1.8 I & O for Last 24 hours: Intake & Output 06/07/22 06/08/22 06/09/22 06/10/22 11:59 11:59 11:59 11:59 Intake Total 600 / 600 Output Total 920 / 920 Balance -320 / -320 Weight 175 lb 166 lb 8 oz Constitutional Constitutional: no acute distress *Routine Respiratory Exam Respiratory: Present CTA bilaterally *Routine Cardiovascular Exam Cardiovascular: Present RRR *Routine Neurological Exam Neurological: Present alert and oriented X3 Progress Note: A&P Assessment and plan (1) Pericardial effusion: Status: Acute (2) Diabetes mellitus: Status: Chronic (3) CAD (coronary artery disease): Status: Chronic (4) Atrial fibrillation: Status: Chronic Assessment and Plan Assessment and Plan for All Diagnoses:: 1.? Acute pericardial effusion/cardiac tamponade status post procedure (upgrade to BiV device).? Status post pericardiocentesis with significant improvement in clinical status.? Resume carvedilol and ramipril at home doses as blood pressur
--- NOTE | 2022-06-10 08:30 | EXP.PN ---
Subjective *Date: 06/10/22 *Time: 08:35 Interval history: Overnight the patient had a low grade fever which self resolved. Blood cultures x2 were collected. Limited echo this morning revealed decreased pericardial fluid. Cardiology plans to pull pericardial drain this morning. Hgb is stable at 11.8 AST and ALT are trending down, this am 69 and 96 respectively CRP is 75 UA without pyuria Exam Data for Last 24 hours Vital signs and Labs for Last 24 Hours: Temp Pulse Resp BP Pulse Ox 98.4 F 68 18 122/61 94 L 06/10/22 03:41 06/10/22 06:00 06/10/22 06:00 06/10/22 06:00 06/10/22 08:00 Laboratory Results - last 24 hr 06/09/22 11:09: SARS-CoV-2 (PCR) Not detected, Influenza A Untype (PCR) Not detected, Influenza Type B (PCR) Not detected 06/09/22 12:40: WBC 8.7 D, RBC 3.88 L, Hgb 11.4 L, Hct 37.3 L, MCV 96.2 H, MCH 29.5, MCHC 30.7 L, RDW 14.8, Plt Count 123 L, MPV 7.1 L, Neut % (Auto) 88.7 H, Lymph % (Auto) 5.6 L, [place] % (Auto) 4.9, Eos % (Auto) 0.5, Baso % (Auto) 0.2, Neut # (Auto) 7.7, Lymph # (Auto) 0.5 L, [place] # (Auto) 0.4, Eos # (Auto) 0.1, Baso # (Auto) 0.0, Total Counted 100, Neutrophils % (Manual) 89 H, Lymphocytes % (Manual) 8 L, Monocytes % (Manual) 3, Platelet Estimate Slight decrease, RBC Morphology Normal 06/09/22 12:40: PT 12.4, INR 1.16 H, APTT 25.6 06/09/22 12:40: Sodium 136, Potassium 4.8, Chloride 107, Carbon Dioxide 21 L, Anion Gap 12.8, BUN 15, Creatinine 1.10, Estimated Creat Clear 68, Estimated GFR 66, Est GFR ( Amer) 80, Glucose 335 H, Calcium 8.0 L, Total Bilirubin 1.1, AST 185 H, ALT 139 H, Alkaline Phosphatase 100, Total Protein 5.5 L, Albumin 3.3 L, Globulin 2.2, Albumin/Globulin Ratio 1.5 06/09/22 12:40: Blood Type A Negative, Antibody Screen Negative 06/09/22 17:06: POC Glucose 221 H 06/09/22 20:26: POC Glucose 135 H 06/09/22 21:42: Urine Color Yellow, Urine Appearance Clear, Urine pH 5.5, Ur Specific [place] 1.025, Urine Protein Negative, Urine Glucose (UA) 3+, Urine Ketones Negative, Urine Blood 1+, Urine Nitrate Negative, Urine Bilirubin Negative, Urine Urobilinogen 0.2, Ur Leukocyte Esterase Negative, Urine RBC 3-5, Urine WBC None, Ur Squamous Epith Cells None, Urine Bacteria None 06/09/22 22:00: ESR 17 06/09/22 22:00: C-Reactive Protein 75.3 H, Procalcitonin 0.916 06/10/22 05:31: WBC 9.2, RBC 3.91 L, Hgb 11.8 L, Hct 36.3 L, MCV 93.0, MCH 30.2, MCHC 32.5, RDW 15.1, Plt Count 102 L, MPV 8.4, Neut % (Auto) 81.9 H, Lymph % (Auto) 9.2 L, [place] % (Auto) 8.5, Eos % (Auto) 0.4, Baso % (Auto) 0.1, Neut # (Auto) 7.5, Lymph # (Auto) 0.8, [place] # (Auto) 0.8, Eos # (Auto) 0.0, Baso # (Auto) 0.0 06/10/22 05:31: Sodium 138, Potassium 4.6, Chloride 106, Carbon Dioxide 21 L, Anion Gap 15.6 H, BUN 21 H D, Creatinine 1.00, Estimated Creat Clear 71, Estimated GFR 73, Est GFR ( Amer) 89, Glucose 147 H D, Calcium 9.2, Total Bilirubin 0.7, AST 69 H D, ALT 96 H D, Alkaline Phosphatase 92, Total Protein 5.6 L, Albumin 3.6, Globulin 2.0, Albumin/Globulin Ratio 1.8 I & O for Last 24 hours: Intake & Output 06/07/22 06/08/22 06/09/22 04/07/23 23:59 23:59 23:59 23:59 Intake Total 600 / 600 Output Total 210 / 610 710 / 710 Balance 390 / -10 -710 / -710 Weight 78.557 kg 75.52 kg Assessment and Plan *Assessment and plan (1) Pericardial effusion: Status: Acute Category: Medical Code(s): I31.39 - Other pericardial effusion (noninflammatory) (2) Diabetes mellitus: Status: Chronic Qualifiers: Diabetes mellitus complication status: without complication Diabetes mellitus fpc insulin use: with fpc use Diabetes mellitus type: type 2 Qualified Code(s): E11.9 - Type 2 diabetes mellitus without complications; 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
[2022-06-10 10:56] LABS: POC Glucose,Bedside 149 (70-110)
[2022-06-10 16:47] LABS: POC Glucose,Bedside 261 (70-110)
--- NOTE | 2022-06-10 16:50 | PC.NURSE ---
Pericardial drain removed this AM. 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 No drainage noted.Pt is confused at times. Safety measures in place. at bedside. Pt assisted to BSC and BR this shift. Tolerated fair. Has been up to chair x1. Was febrile this afternoon. Medicated per mar. Call light within reach.
--- NOTE | 2022-06-10 18:25 | EXP.DC.SUM ---
General Admission date:: 06/09/22 Discharge date: 06/10/22 HPI HPI HPI: Mr. Pollock is a 71 year old male with a past medical history of symptomatic bradycardia s/p ppm, CAD s/p PETEY placed in 2019, atrial fibrillation on Eliquis, CVA, HTN, HLD, T2DM, prostate cancer on leuprolide and sarcoidosis who presented to the ED because of bleeding from his surgical wound. Yesterday he had an elective replacement of his pacemaker with a biventricular pacemaker for cardiac resynchronization therapy. He had held his Eliquis 4-5 days prior to this procedure. Despite this measure he presented with profuse bleeding from his surgical site. An echocardiogram revealed cardiac tamponade. Emergent pericardiocentesis was performed and 400cc of bloody aspirate was removed with complete resolution of cardiac tamponade; a pigtail drain in the pericardial space was secured in place with a suture. His initial symptoms of pressure in his chest and dyspnea have significantly decreased. Hospital Course Hospital Course Hospital Course: Overnight the patient did not have any further drainage from her pericardial drain. A limited echocardiogram was obtained in the morning which revealed decreased pericardial effusion. The pericardial drain was removed and a repeat echocardiogram in the evening revealed that there was no further accumulation of pericardial fluid. He will be discharging home and will need to hold his Eliquis for 1 week. He will need to follow up with Cardiology next week. Exam Data for Last 24 hours Vital signs and Labs for Last 24 Hours: Temp Pulse Resp BP Pulse Ox 98.4 F 82 21 117/46 L 97 06/10/22 17:56 06/10/22 17:56 06/10/22 17:56 06/10/22 17:56 06/10/22 17:56 Laboratory Results - last 24 hr 06/09/22 20:26: POC Glucose 135 H 06/09/22 21:42: Urine Color Yellow, Urine Appearance Clear, Urine pH 5.5, Ur Specific [place] 1.025, Urine Protein Negative, Urine Glucose (UA) 3+, Urine Ketones Negative, Urine Blood 1+, Urine Nitrate Negative, Urine Bilirubin Negative, Urine Urobilinogen 0.2, Ur Leukocyte Esterase Negative, Urine RBC 3-5, Urine WBC None, Ur Squamous Epith Cells None, Urine Bacteria None 06/09/22 22:00: ESR 17 06/09/22 22:00: C-Reactive Protein 75.3 H, Procalcitonin 0.916 06/10/22 05:31: WBC 9.2, RBC 3.91 L, Hgb 11.8 L, Hct 36.3 L, MCV 93.0, MCH 30.2, MCHC 32.5, RDW 15.1, Plt Count 102 L, MPV 8.4, Neut % (Auto) 81.9 H, Lymph % (Auto) 9.2 L, Chaves % (Auto) 8.5, Eos % (Auto) 0.4, Baso % (Auto) 0.1, Neut # (Auto) 7.5, Lymph # (Auto) 0.8, Ch[place] # (Auto) 0.8, Eos # (Auto) 0.0, Baso # (Auto) 0.0 06/10/22 05:31: Sodium 138, Potassium 4.6, Chloride 106, Carbon Dioxide 21 L, Anion Gap 15.6 H, BUN 21 H D, Creatinine 1.00, Estimated Creat Clear 71, Estimated GFR 73, Est GFR ( Amer) 89, Glucose 147 H D, Calcium 9.2, Total Bilirubin 0.7, AST 69 H D, ALT 96 H D, Alkaline Phosphatase 92, Total Protein 5.6 L, Albumin 3.6, Globulin 2.0, Albumin/Globulin Ratio 1.8 06/10/22 10:49: POC Glucose 149 H 06/10/22 16:38: POC Glucose 261 H I & O for Last 24 hours: Intake & Output 06/07/22 06/08/22 06/09/22 06/10/22 23:59 23:59 23:59 23:59 Intake Total 600 / 600 360 / 360 Output Total 210 / 610 1310 / 1310 Balance 390 / -10 -950 / -950 Weight 78.557 kg 75.52 kg Constitutional Constitutional: no acute distress *Routine HEENT Exam Head: Present normocephalic Eye: Present EOMI and PERRL ENT: Present mucous membranes moist *Routine Neck Exam Neck: Present supple; Absent lymphadenopathy *Routine Respiratory Exam Respiratory: Present CTA bilaterally *Routine Cardiovascular Exam Cardiovascular: Present RRR *Routine Abdominal Exam Abdominal: Present soft and normoactive bowel sounds; Absent tenderness *Routine Extremities Exam Extremities: Absent cyanosis, clubbing or edema *Routine Skin Exam Skin: Present warm Comments: left upper chest with dressing that is clean dry and intact *Routine Neurological Exam Neurological: Present alert
--- NOTE | 2022-06-10 19:43 | PC.NURSE ---
pt left floor at this time
[2022-06-10 20:20] LABS: POC Glucose,Bedside 149 (70-110)
--- NOTE | 2022-06-13 14:15 | CARE MANAGER ---
Called and spoke with patient and his regarding recent discharge home. Patient had no concerns or complaints at time of call. He has called and made f/u appts and is holding Eliquis per DC plans.
== END 2022-06-10 19:43 | disposition home or self-care (01) | DRG 243 ==
LOC: ER 11:12 → CATHLAB 11:23 → 2ND 11:59
PROVIDERS: Internal Medicine; Nurse Practitioner Acute Care; Admitting Provider Internal Medicine; Emergency Provider Student in an Organized Health Care Education/Training Program; PCP Family Medicine; Visit Provider Internal Medicine
PROC: 0W9D30Z Drainage of Pericardial Cavity with Drainage Device, Percutaneous Approach (ICD-10-PCS; principal; 2022-06-09 11:30)
DX: I31.39 Other pericardial effusion (noninflammatory) (principal); I42.9 Cardiomyopathy, unspecified; I48.11 Longstanding persistent atrial fibrillation; T82.128A Displacement of other cardiac electronic device, initial encounter; I31.4 Cardiac tamponade; F17.290 Nicotine dependence, other tobacco product, uncomplicated; E11.9 Type 2 diabetes mellitus without complications; E78.5 Hyperlipidemia, unspecified; D86.9 Sarcoidosis, unspecified; I10 Essential (primary) hypertension; I25.10 Atherosclerotic heart disease of native coronary artery without angina pectoris; I25.2 Old myocardial infarction; Z79.84 Long term (current) use of oral hypoglycemic drugs; Z79.02 Long term (current) use of antithrombotics/antiplatelets; Y84.8 Other medical procedures as the cause of abnormal reaction of the patient, or of later complication, without mention of misadventure at the time of the procedure; R29.6 Repeated falls; C61 Malignant neoplasm of prostate; Z79.818 Long term (current) use of other agents affecting estrogen receptors and estrogen levels
CPT/HCPCS: 33017; 33208; 33225; 33233; 33010; 36415; 71045; 76930; 80048; 80053; 81001; 82962; 84145; 85007; 85025; 85610; 85651; 85730; 86140; 86850; 87040; 93005; 93308; 99285; C1725; C1769; C1898; C1900; C2621; C9803; J1644; Q9967; U0003; U0005

== ENCOUNTER → 2022-06-16 08:48 | Outpatient (CLI) | payer MEDICARE, MEDICAID, SELFPAY ==
[2022-06-16 09:33] LABS: Basophils % 0.6 % (0.1-2.0); Eosinophils # 0.1 K/mm3 (0.0-0.4); Eosinophils % 2.1 % (0.1-12.0); Hematocrit 35.3 % (42.0-52.0); Hemoglobin 11.4 g/dL (14.1-18.0); Lymphocytes # 0.7 K/mm3 (0.7-4.5); Lymphocytes % 13.5 % (10-50); Mean Corpuscular HGB Conc 32.3 g/dL (31.8-35.4); Mean Corpuscular Hemoglobin 29.9 pg (27.0-31.2); Mean Corpuscular Volume 92.8 fl (80-94); Monocytes # 0.3 K/mm3 (0.1-1.0); Monocytes % 6.3 % (1.7-9.3); Neutrophils # 3.9 K/mm3 (1.8-7.8); Neutrophils % 77.5 % (37.0-80.0); Platelet Count 173 K/mm3 (142-424); Red Blood Count 3.81 M/mm3 (4.60-6.20); Red Cell Distribution Width 14.5 % (11.5-17.5)
[2022-06-16 09:48] LABS: Blood Urea Nitrogen 15 mg/dl (9-20); Calcium 9.4 mg/dl (8.4-10.2); Carbon Dioxide 26 mmol/L (22.0-30.0); Chloride 103 mmol/L (98-107); Estimated Glomerular Filt Rate 73 ml/min (>60); GFR (African American) 89 ML/MIN (>60); Glucose 204 mg/dl (74-100); Sodium 133 mmol/L (136-145)
== END ==
PROVIDERS: PCP Family Medicine; Visit Provider Internal Medicine
DX: R06.02 Shortness of breath (principal); R42 Dizziness and giddiness; I25.10 Atherosclerotic heart disease of native coronary artery without angina pectoris; I10 Essential (primary) hypertension
CPT/HCPCS: 36415; 80048; 85025

== ENCOUNTER → 2022-10-18 08:45 | Outpatient (CLI) | payer MEDICARE, MEDICAID, SELFPAY ==
[2022-10-18 09:40] LABS: Anion Gap 12.5 mEq/L (5-15); Blood Urea Nitrogen 18 mg/dl (9-20); Carbon Dioxide 28 mmol/L (22.0-30.0); Chloride 103 mmol/L (98-107); Estimated Glomerular Filt Rate 73 ml/min (>60); GFR (African American) 89 ML/MIN (>60); Glucose 289 mg/dl (74-100); Potassium 3.5 mmoL/L (3.5-5.1); Sodium 140 mmol/L (136-145)
--- NOTE | 2022-10-18 09:54 | CA_ITS ---
APPROVED REPORT EXAM: Limited 2D and color flow Echocardiogram Division Commander: MENDEL Wilson, RVS Ht: 5 ft 9 in Wt: 167lbs BSA: 1.91 BP: 114/59 mmHg Indications: Pericardial effusion check/EF check, CP, Pacer, HTN, SOB 2D Dimensions IVSd 1.32 cm LVEF (Visual) 69.90 % PWd 0.97 cm LVDd 4.58 cm LVDs 2.78 cm M-Mode Dimensions RVDd 2.01 cm (0.9-2.6) LVDd 4.86 cm (3.5-5.7) LVDs 3.50 cm (3.5-5.7) IVSd 1.37 cm (0.6-1.1) PWd 1.00 cm (0.6-1.1) EF (Teich) 54.00% FS 28.00% EDV (Teich) 110.70 mL ESV (Teich) 50.90 mL Tricuspid Valve TR P. Velocity 241.00 cm/s RAP Estimate 10.00 mmHg RVSP 33.20 mmHg Other Information Study Quality: Fair Conclusion This is a limited study to evaluate for LVEF and presence of pericardial effusion. Limited windows were obtained. The left ventricle appears normal in size and function. LVEF is 55%. There is hypokinesis in the mid to distal inferior, inferoseptal, and inferolateral LV diaz. The septum appears asynchronous. The right ventricle appears normal in size and function. There is a device lead present in the RV. RVSP is 25-30 mmHg There is trivial pericardial effusion. No evidence of chamber collapse. IVC normal in size and collapsibility. No echo indications of tamponade. Compared to prior study from 06/10/2022, the pericardial effusion appears unchanged. Electronically signed by : Lelia Em, 10/18/2022 16:06:27
== END ==
PROVIDERS: PCP Family Medicine; Visit Provider Internal Medicine
DX: I10 Essential (primary) hypertension (principal); I25.10 Atherosclerotic heart disease of native coronary artery without angina pectoris; R29.6 Repeated falls; R42 Dizziness and giddiness; Z95.0 Presence of cardiac pacemaker; I31.39 Other pericardial effusion (noninflammatory); R06.00 Dyspnea, unspecified; I42.8 Other cardiomyopathies
CPT/HCPCS: 36415; 80048; 93308

== ENCOUNTER → 2022-10-18 09:54 | Outpatient (CLI) | payer MEDICARE, MEDICAID, SELFPAY | PROVIDERS: PCP Family Medicine; Visit Provider Physician Assistant | DX: R06.00 Dyspnea, unspecified (principal); I25.10 Atherosclerotic heart disease of native coronary artery without angina pectoris ==

== ENCOUNTER 2022-11-24 12:59 | Observation (INO) | payer MEDICARE, MEDICAID, SELFPAY ==
[2022-11-24] VITALS (9 sets, daily range): BP systolic 108–128; BP diastolic 48–82; PULSE 60–61; RESP 10–21; TEMP 36.6–37; O2SAT 97–100; BMI 24.3; BMI 24.2
--- NOTE | 2022-11-24 12:57 | ECG_ITS ---
APPROVED REPORT Exam: Resting ECG HR:60 bpm ECG Measurements Heart Rate 60 AXES DC 223 P 113 QRSd 176 QRS 202 QT 462 T 77 QTc 462 Conclusion ELECTRONIC ATRIAL PACEMAKER ELECTRONIC VENTRICULAR PACEMAKER ABNORMAL RHYTHM ECG UNCONFIRMED REPORT Electronically signed by : Ramirez Last MD 11/25/2022 09:51:04
--- NOTE | 2022-11-24 13:09 | PC.NURSE ---
Dr. Mei at BS for pt eval
--- NOTE | 2022-11-24 13:13 | XR_ITS ---
FINAL REPORT TECHNIQUE: Chest PA & Lateral CLINICAL HISTORY: L chest pain COMPARISON: 06/08/2022 FINDINGS: 2 views of the chest were performed. The heart size is normal. Biventricular pacer is present. The mediastinum is within normal limits. There is no acute cardiopulmonary process. There are no pleural effusions. There is no pneumothorax. The bony thorax appears intact. IMPRESSION: No acute cardiopulmonary process. Reviewed, Interpreted and Dictated by Bossman Baron MD Transcribed by Shanon Chau Authenticated and . [facility]
--- NOTE | 2022-11-24 13:18 | PC.NURSE ---
Pt returned from RAD
[2022-11-24 13:21] LABS: Chloride 101 mmol/L (98-107); Potassium 3.9 mmoL/L (3.5-5.1); Sodium 136 mmol/L (136-145)
[2022-11-24 13:24] LABS: Alanine Aminotransferase 23 U/L (12-78); Albumin Level 4.1 g/dl (3.5-5.0); Albumin/Globulin Ratio 1.5 (1.1-1.8); Alkaline Phosphatase 85 U/L (38-126); Anion Gap 13.9 mEq/L (5-15); Aspartate Amino Transferase 29 U/L (17-59); Bilirubin,Total 0.4 mg/dl (0.2-1.3); Blood Urea Nitrogen 13 mg/dl (9-20); Calcium 9.4 mg/dl (8.4-10.2); Carbon Dioxide 25 mmol/L (22.0-30.0); Creatinine Clearance Estimated 52 mL/min (50-200); Estimated Glomerular Filt Rate 54 ml/min (>60); GFR (African American) 65 ML/MIN (>60); Globulin 2.7 g/dL (1.3-3.2); Glucose 294 mg/dl (74-100); Total Protein,Serum 6.8 g/dl (6.3-8.2)
--- NOTE | 2022-11-24 13:27 | HMH.EDGENADL ---
Discharge Plan Disposition Chief Complaint: Chest Pain Prescriptions Prescriptions: No Action Lupron Depot (3 month) 11.25 mg syringe kit 11.25 mg IM [id number] spironolactone [Aldactone] 25 mg tablet 25 mg PO DAILY Qty: 30 2RF furosemide [Lasix] 20 mg tablet 20 mg PO DAILY Qty: 30 5RF metformin 500 mg tablet 1,000 mg PO BID Hold Instructions: Resume on 06/10/22. glipizide 10 mg tablet 5 mg PO BID Jardiance 25 mg tablet 25 mg PO DAILY carvedilol 12.5 mg tablet See Rx Instructions .ROUTE .COMPLEX Qty: 60 5RF Dose Instruction: TAKE 1 TABLET TWICE DAILY WITH FOOD Rx Instructions: TAKE 1 TABLET TWICE DAILY WITH FOOD ramipril 10 mg capsule 10 mg PO DAILY cyanocobalamin (vitamin B-12) 1,000 mcg tablet 1,000 mcg PO DAILY Patient Comments: TAKE ONE (1) TABLET EVERY DAY BY ORAL ROUTE FOR 30 DAYS. pravastatin 80 mg tablet 80 mg PO HS Eliquis 5 mg tablet 5 mg PO BID Rx Instructions: TAKE 1 TABLET TWICE A DAY. Referrals Follow up/Referrals: Provider,Referral, MD [Primary Care Provider] - See instructions Discharge ED Provider: Cristobal Murray General Adult HPI General Chief complaint: Chest Pain Stated complaint: Chest Pain Time Seen by Provider: 11/24/22 13:03 Mode of Arrival: Ambulatory Source of Information: Patient Limitations: No Limitations Description of Symptoms (Recalled from ER Triage Doc. by RN): Pt reports L sided chest pain that began lastnight and worsened today. Pt reports pain radiates down L arm. Pt reports has a pacemaker, dr. perez is his overweaver. History of Present Illness HPI narrative: This patient is a 72-year-old male who has a history of CAD status post stenting, atrial fibrillation with atrial pacer in place, type 2 diabetes, hypertension, hyperlipidemia, and cardiomyopathy presenting to the emergency department for evaluation with concern for left-sided chest pain that radiates down his left arm. He reports that it started yesterday. He states it became worse today. It has been constant since onset, and nothing seems to make it better or worse. he does have associated nausea and feels like he cannot get a deep breath then, but he denies any other concerns such as fevers, chills, cough, congestion, abdominal pain, vomiting, changes in bowel movements, or other concerns. Of note, patient had his pacer replaced in June, which was complicated by cardiac tamponade. Patient reports no significant issues since then. On medical record review, he has been evaluated by his overweaver, at which point he has complained of left-sided chest pain to them as well. His last visit was 10/18/2022. On medical record review, patient also has a history of cardiac sarcoid as well as prostate cancer, which he receives treatment at [facility]. Related Data Home Medications Medication Instructions Recorded Confirmed metformin 500 mg tablet 1,000 mg PO BID sugar 07/07/17 10/18/22 glipizide 10 mg tablet 5 mg PO BID Diabetes 01/22/19 10/18/22 empagliflozin 25 mg tablet 25 mg PO DAILY Heart disease 03/11/19 10/18/22 (Jardiance) ramipril 10 mg capsule 10 mg PO DAILY Heart disease 06/08/22 10/18/22 cyanocobalamin (vitamin B-12) 1,000 mcg PO DAILY Supplement 06/09/22 10/18/22 1,000 mcg tablet pravastatin 80 mg tablet 80 mg PO HS Cholesterol 06/09/22 10/18/22 leuprolide (3 month) 11.25 mg (3 11.25 mg IM [id number] prostate 09/15/22 10/18/22 month) intramuscular syringe kit cancer (Lupron Depot) apixaban 5 mg tablet (Eliquis) 5 mg PO BID Blood Thinner 11/24/22 11/24/22 Previous Rx's Medication Instructions Recorded furosemide 20 mg tablet (Lasix) 20 mg PO DAILY #30 tabs 09/15/22 spironolactone 25 mg tablet 25 mg PO DAILY #30 tabs 09/15/22 (Aldactone) carvedilol 12.5 mg tablet See Rx Instructions .Route 10/04/22 .COMPLEX #60 tabs Allergies Allergy/AdvReac Type Severity Reaction Status D
--- NOTE | 2022-11-24 13:34 | PC.NURSE ---
Pt gone to RAD via wheelchair
[2022-11-24 13:35] LABS: Basophils % 0.5 % (0.1-2.0); Eosinophils # 0.1 K/mm3 (0.0-0.4); Eosinophils % 1.9 % (0.1-12.0); Hematocrit 41.9 % (42.0-52.0); Hemoglobin 13.3 g/dL (14.1-18.0); Lymphocytes # 0.9 K/mm3 (0.7-4.5); Lymphocytes % 19.1 % (10-50); Mean Corpuscular HGB Conc 31.8 g/dL (31.8-35.4); Mean Corpuscular Hemoglobin 29.1 pg (27.0-31.2); Mean Corpuscular Volume 91.5 fl (80-94); Monocytes # 0.4 K/mm3 (0.1-1.0); Monocytes % 8.3 % (1.7-9.3); Neutrophils # 3.5 K/mm3 (1.8-7.8); Neutrophils % 70.3 % (37.0-80.0); Platelet Count 129 K/mm3 (142-424); Red Blood Count 4.57 M/mm3 (4.60-6.20); Red Cell Distribution Width 15.5 % (11.5-17.5)
--- NOTE | 2022-11-24 13:40 | PC.NURSE ---
Pt returned from RAD
[2022-11-24 13:45] LABS: Troponin I < 0.01 ng/ml (0.00-0.034)
[2022-11-24 14:02] LABS: NT Pro Brain Natriuretic Pep. 500 pg/mL (0-125)
--- NOTE | 2022-11-24 14:08 | CT_ITS ---
FINAL REPORT TECHNIQUE: The patient was injected with IV contrast. Axial images were obtained through the chest in a PE protocol. 3-D reconstruction images were also performed. Individualized dose reduction techniques using automated exposure control or adjustment of the MA and/or KV according to patient's size were employed. CLINICAL HISTORY: chest pain, elevated dimer COMPARISON: None FINDINGS: Mediastinal vasculature is adequately opacified. A left upper anterior chest wall pacer is present. No pulmonary artery filling defects are identified to suggest PE. There is no aortic dissection. There is no axillary adenopathy. There are a few small scattered mediastinal nodes, the largest in the right paratracheal region measures 1.9 cm in diameter. The heart size is normal. There is no pericardial or pleural effusion. There are multiple noncalcified nodules noted in the lung lynne bilaterally, predominantly in the right middle lobe and lingula measuring up to 10 mm in size. There is a pleural-based nodule in the right lung base, which measures 10 mm, seen on image #64 of series 5. Limited images of the upper abdomen are unremarkable other than calcified granulomas in the liver and spleen. IMPRESSION: No pulmonary embolus or dissection. Multiple noncalcified pulmonary nodules predominantly in the right middle lobe and lingula as described. There is a 10 mm node in the right base, which is pleural-based. Per Fleischner criteria, a follow-up CT is suggested in 3 to 6 months. A few small scattered mediastinal nodes are present, the largest right paratracheal node measuring 1.9 cm in diameter. Reviewed, Interpreted and Dictated by Bossman Baron MD Transcribed by Elle Montejo Authenticated and [facility]
--- NOTE | 2022-11-24 14:28 | PC.NURSE ---
Pt gone to RAD for CT
--- NOTE | 2022-11-24 14:37 | PC.NURSE ---
Pt returned from RAD
--- NOTE | 2022-11-24 15:11 | PC.NURSE ---
Rounded on pt. Updated on POC. No needs voiced at this time.
--- NOTE | 2022-11-24 15:20 | PC.NURSE ---
Dr. Mei speaking with Dr. Gavin
--- NOTE | 2022-11-24 15:21 | CA_ITS ---
APPROVED REPORT EXAM: Comprehensive 2D, Doppler, and color-flow Echocardiogram Wood Bucker: Alondra Baxter RVT Ht: 5 ft 8 in Wt: 160lbs BSA: 1.86 BP: 119/58 mmHg Indications: CP,PACER,A-FIB,HX CM,HTN,DM,HLD,CAD,HX TAMPONADE 2D Dimensions LVOT 1.91 cm (M/F) 1.5-2.5 LA Volume 64.80 mL LA Volume Index 34.84 mL/m2 (M/F) 16-34 M-Mode Dimensions RVDd 2.18 cm (0.9-2.6) LA Diam 2.87 cm (1.9-4.0) LVDd 3.55 cm (3.5-5.7) Ao Diam 3.77 cm (2.0-3.7) LVDs 2.38 cm (3.5-5.7) IVSd 1.47 cm (0.6-1.1) PWd 0.50 cm (0.6-1.1) EF (Teich) 62.50% FS 33.00% EDV (Teich) 52.60 mL TAPSE 2.06 (<1.7) ESV (Teich) 19.70 mL LV Diastology E Decel Time 210.00 (160-240 msec) E/A Ratio 0.8 MED E' 4.90 (< 7 cm/sec) E'/MED E' Ratio 12.59 (>14) LAT E' 7.40 (<10 cm/sec) E/LAT E' Ratio 8.34 (>14) Aortic Valve AI PHT 621.00 ms AO Peak GR. 7.40 mmHg Mitral Valve MV E Max Joe. 62.00 (40-130 cm/s) MV A Velocity 76.00 (40-130 cm/s) E/A Ratio 0.82 MV Decel. Time 210.00 (160-240 ms) MV PHT 62.00 ms Pulmonary Valve PV Peak Velocity 106.00 (50-150 cm/s) Tricuspid Valve TR P. Velocity 243.00 cm/s RAP Estimate 10.00 mmHg RVSP 33.60 mmHg Left Ventricle The left ventricle is normal size. The left ventricular systolic function is normal. The left ventricular ejection fraction is within the normal range. There is increased LV wall thickness. There is normal LV segmental wall motion. Transmitral Doppler flow pattern suggests impaired LV relaxation. LVEF is 55%. Right Ventricle The right ventricle is mildly dilated. The right ventricular systolic function is normal. A device lead is noted in the right ventricle. Atria The left atrium size is normal. The right atrium size is normal. There is no Doppler evidence of interatrial shunt. Aortic Valve The aortic valve is mildly thickened. There is no aortic valvular stenosis. Mild aortic regurgitation. Mitral Valve The mitral valve is mildly thickened. No evidence of mitral valve stenosis. Trace mitral regurgitation. Tricuspid Valve The tricuspid valve leaflets are thin and pliable. Mild tricuspid regurgitation. RVSP is 25-30 mmHg. Pulmonic Valve The pulmonary valve is normal in structure. Trace pulmonic regurgitation. Great Vessels The aortic root is normal in size. The ascending aorta is borderline dilated, measuring 3.7 cm. IVC is normal in size and collapses >50% with inspiration. Pericardium Trivial pericardial effusion. Other Information Study Quality: Fair Conclusion Normal biventricular systolic function. Mild RV dilation. Mild AI, mild TR. RVSP 25-30 mmHg. Borderline dilated ascending aorta (3.7 cm). Trivial pericardial effusion. Electronically signed by : Lelia Em MD 11/25/2022 19:43:59
--- NOTE | 2022-11-24 15:29 | PC.NURSE ---
rounded on pt, pt getting up to restroom, pt tolerated ambulation well to bathroom
--- NOTE | 2022-11-24 15:33 | PC.NURSE ---
ER MD Mei speaking with hopitalist dr. caceres
--- NOTE | 2022-11-24 15:45 | PC.NURSE ---
notified care management of admission
--- NOTE | 2022-11-24 16:21 | PC.NURSE ---
report called to kaylan lowry on second floor
[2022-11-24 16:50] LABS: Hemoglobin A1C 8.9 % (4.0-6.0)
[2022-11-24 17:06] LABS: Troponin I < 0.01 ng/ml (0.00-0.034)
[2022-11-24 17:10] LABS: POC Glucose,Bedside 150 (70-110)
--- NOTE | 2022-11-24 19:13 | EXP.HP ---
History of Present Illness *Admission Date: 11/24/22 *Reason for visit:: chest pain *History of present illness: Mr. Pollock is a 72-year-old male with past medical history of symptomatic bradycardia status post pacemaker placement, CAD status post PETEY in 2019, A-fib on Eliquis, CVA, hypertension, hyperlipidemia, diabetes, prostate cancer on androgen deprivation therapy, and cardiac sarcoid. He presented to the ER because of complaint of chest pain radiating down his left arm. He reports that it started yesterday. Has become somewhat worse today and is intermittent. Was constant initially but is somewhat improved by the time I evaluate him on the floor. Nothing makes it better or worse. Does have associated nausea but no emesis. Pain with deep breath. Denies fever, chills, syncope. Feels short of breath all the time. Recent admission in June after pacemaker placement with complication of cardiac tamponade, necessitating pericardiocentesis with evacuation of 400 cc of bloody aspirate. On evaluation in the ER, initial troponin negative. Cardiology was consulted and recommended admission given significance of cardiac history and patient's symptoms. Medicine consulted for admission. Patient pleasant on exam after arriving to the floor. at bedside who helps give history. Reports taking all of his meds in the morning but does not take evening dose if they require a second dose. [facility] Disclaimer: The information contained in this section may have been updated after the patient was seen, as this information can be updated by other users. Medical History Abnormal cardiovascular stress test Cardiomyopathy Displacement of atrial pacemaker leads Pericardial effusion Prostate cancer SOB (shortness of breath) Typical angina Surgical History History of cardiac catheterization Family History Family history of cancer Social History Smoking Status: Never smoker second hand exposure: No alcohol intake: current substance use type: denies use current occupational status: retired Travel in the last 8 weeks: Inside the [place] household members: spouse housing: house current occupational exposures/hazards: No caffeine: Yes Review of Systems Review of Systems Review of systems (narrative): 14 point review of systems performed, pertinent positives and negatives as per [facility] Meds Home Medications and Allergies Home Medications Medication Instructions Recorded Confirmed Type metformin 500 mg tablet 1,000 mg PO DAILY sugar 07/07/17 11/24/22 History glipizide 10 mg tablet 5 mg PO DAILY Diabetes 01/22/19 11/24/22 History empagliflozin 25 mg tablet 25 mg PO DAILY Heart disease 03/11/19 11/24/22 History (Jardiance) ramipril 10 mg capsule 10 mg PO DAILY Heart disease 06/08/22 11/24/22 History cyanocobalamin (vitamin B-12) 1,000 mcg PO DAILY Supplement 06/09/22 11/24/22 History 1,000 mcg tablet pravastatin 80 mg tablet 80 mg PO HS Cholesterol 06/09/22 11/24/22 History leuprolide (3 month) 11.25 mg (3 11.25 mg IM [id number] prostate 09/15/22 11/24/22 History month) intramuscular syringe kit cancer (Lupron Depot) apixaban 5 mg tablet (Eliquis) 5 mg PO DAILY Blood Thinner 11/24/22 11/24/22 History carvedilol 12.5 mg tablet 12.5 mg PO DAILY Heart Disease 11/24/22 11/24/22 History furosemide 20 mg tablet (Lasix) 20 mg PO DAILY Fluid 11/24/22 11/24/22 History spironolactone 25 mg tablet 25 mg PO DAILY Fluid 11/24/22 11/24/22 History (Aldactone) New Prescriptions to Start Prescriptions: Allergies Allergy/AdvReac Type Severity Reaction Status Date / Time No Known Allergies Allergy Verified 10/18/22 09:11 Exam Data for Last 24 hours Vital signs and Labs for Last 24 Hours: Temp Puls
[2022-11-24 19:58] LABS: Troponin I 0.01 ng/ml (0.00-0.034)
[2022-11-24 20:06] LABS: POC Glucose,Bedside 259 (70-110)
[2022-11-25] VITALS: PULSE 60
--- NOTE | 2022-11-25 01:09 | PC.NURSE ---
patient stated he was having trouble sleeping. offered to call md for prn sleep med and patient refused
--- NOTE | 2022-11-25 03:56 | PC.NURSE ---
pt couldn't rest through the night. room air. npo after midnight for cards consult. no other issues noted
[2022-11-25 04:00] VITALS: BP 134/58; PULSE 60; RESP 20; TEMP 36.6; O2SAT 98; BMI 24.3
[2022-11-25 05:36] LABS: POC Glucose,Bedside 166 (70-110)
[2022-11-25 06:38] LABS: Basophils % 0.4 % (0.1-2.0); Eosinophils # 0.1 K/mm3 (0.0-0.4); Eosinophils % 2.4 % (0.1-12.0); Hematocrit 41.4 % (42.0-52.0); Hemoglobin 13.1 g/dL (14.1-18.0); Lymphocytes # 1.1 K/mm3 (0.7-4.5); Mean Corpuscular HGB Conc 31.7 g/dL (31.8-35.4); Mean Corpuscular Hemoglobin 28.4 pg (27.0-31.2); Mean Corpuscular Volume 89.8 fl (80-94); Monocytes # 0.4 K/mm3 (0.1-1.0); Monocytes % 7.8 % (1.7-9.3); Neutrophils # 3.4 K/mm3 (1.8-7.8); Neutrophils % 67.4 % (37.0-80.0); Platelet Count 118 K/mm3 (142-424); Red Blood Count 4.62 M/mm3 (4.60-6.20); Red Cell Distribution Width 15.6 % (11.5-17.5); White Blood Count 5.1 K/mm3 (4.8-10.8)
[2022-11-25 06:50] LABS: Alanine Aminotransferase 18 U/L (12-78); Albumin Level 4.1 g/dl (3.5-5.0); Albumin/Globulin Ratio 1.5 (1.1-1.8); Alkaline Phosphatase 101 U/L (38-126); Anion Gap 11.8 mEq/L (5-15); Aspartate Amino Transferase 23 U/L (17-59); Bilirubin,Total 0.5 mg/dl (0.2-1.3); Blood Urea Nitrogen 13 mg/dl (9-20); Calcium 9.8 mg/dl (8.4-10.2); Carbon Dioxide 28 mmol/L (22.0-30.0); Chloride 99 mmol/L (98-107); Creatinine Clearance Estimated 63 mL/min (50-200); Estimated Glomerular Filt Rate 66 ml/min (>60); GFR (African American) 79 ML/MIN (>60); Globulin 2.7 g/dL (1.3-3.2); Glucose 163 mg/dl (74-100); Magnesium 1.7 mg/dl (1.6-2.3); Potassium 3.8 mmoL/L (3.5-5.1); Sodium 135 mmol/L (136-145); Total Protein,Serum 6.8 g/dl (6.3-8.2)
--- NOTE | 2022-11-25 07:40 | HMH.PHAINT1 ---
Pharmacy Intervention Comments: MEDICATION RECONCILIATION COMPLETED ON PATIENT USING EXTERNAL FILL HISTORY FROM PHARMACY AND LIST FROM CARDIOLOGY OFFICE. -YRIS RUEDA, JOSEPHD
[2022-11-25 07:54] VITALS: BP 142/55; PULSE 60; RESP 17; TEMP 37; O2SAT 96
[2022-11-25 08:00] VITALS: PULSE 60
[2022-11-25 09:24] LABS: POC Glucose,Bedside 178 (70-110)
--- NOTE | 2022-11-25 09:55 | EXP.CARD.CON ---
History of Present Illness History of Present Illness Consult date: 11/25/22 Requesting physician: Jayy Rivas Consult reason: chest pain Chief complaint: chest pain Additional Medical History:: 1. Pacemaker in situ A. Upgrade to biventricular pacemaker, 06/08/2022 due to cardiomyopathy with EF 45% B. Postop pericardial effusion with cardiac tamponade, 06/09/2022, status post pericardiocentesis with 400 mL removed 2. History of atrial fibrillation, chronic A. On eliquis but only taking once daily. Switch to Xarelto therapy 3. Diabetes mellitus, controlled per PCP 4. Sarcoidosis A. prior evaluation and treatment at [facility] 5. Hypertension A. Echocardiogram 05/26/2022, mild biatrial enlargement, normal LV size with mild concentric LVH, EF 45% with segmental wall motion abnormalities (marked hypokinesis involving the distal septum and anteroapical wall). Grade 1 diastolic dysfunction. Mild AR with trace MR and TR B. Limited echo, 10/2022, EF 55% with hypokinesis in the mid to distal inferior, inferoseptal and inferolateral LV diaz. Septum is asynchronous. RV normal size and function. RVSP 25-30 mm Hg. Trivial pericardial effusion. 6. History of prostate cancer A. Followed by 7. Hyperlipidemia A. On statin 8. Coronary artery disease A. NSTEMI, 03/20/2018, PETEY to circumflex, [place], [place] B. Left heart catheterization, 07/01/2020, adequate revascularization with normal left main, patent stents in the proximal and mid LAD, proximal segment of the second diagonal is occluded with no collateralization, 10 to 20% stenosis mid circumflex which is nondominant, large dominant RCA with mild disease with distal 30% stenosis. EF 40% with EDP 10 mmHg. History of present illness: Mr. Pollock is a 72-year-old male with past medical history of symptomatic bradycardia status post pacemaker placement, CAD status post PETEY in 2019, A-fib on Eliquis, CVA, hypertension, hyperlipidemia, diabetes, prostate cancer on androgen deprivation therapy, and cardiac sarcoid. He presented to the ER because of complaint of chest pain radiating down his left arm. He reports that it started yesterday. Has become somewhat worse today and is intermittent. Was constant initially but is somewhat improved by the time I evaluate him on the floor. Nothing makes it better or worse. Does have associated nausea but no emesis. Pain with deep breath. Denies fever, chills, syncope. Feels short of breath all the time. Recent admission in June after pacemaker placement with complication of cardiac tamponade, necessitating pericardiocentesis with evacuation of 400 cc of bloody aspirate. On evaluation in the ER, initial troponin negative. Cardiology was consulted and recommended admission given significance of cardiac history and patient's symptoms. Medicine consulted for admission. Patient pleasant on exam after arriving to the floor. at bedside who helps give history. Reports taking all of his meds in the morning but does not take evening dose if they require a second dose. The above per Dr. Rivas Events above confirmed with patient. Left sided chest pain reproducible over the pacer site with pacing wires palpable. No signs of infection. Pt has lost weight and pacer has likely shifted down which is causing some musculoskeletal tenderness. Pacer interrogation reveals no significant abnormalities except mild increased fluid. Troponins normal. EKG is AV pacing at 60 bpm. [facility] Disclaimer: The information contained in this section may have been updated after the patient was seen, as this information can be updated by other users. Medical History Abnormal cardiovascular stress test Cardiomyopathy Displacement of atrial pacemaker leads Pericardial effusion Prostate cancer SOB (shortness of breath) Typical angina Surgical History (Reviewed 11/24/22 @ 19:13
[2022-11-25 10:49] LABS: Chol/HDL Ratio 3.6 (1-3.5); Cholesterol 136 mg/dl (140-200); HDL Cholesterol 38 mg/dl (40-60); Triglycerides 126 mg/dl (30-150); VLDL Cholesterol 25 mg/dL (0-40)
[2022-11-25 11:00] LABS: Direct LDL Cholesterol 71.16 mg/dL (100-129)
[2022-11-25 11:35] VITALS: BP 113/59; PULSE 60; RESP 18; TEMP 37.1; O2SAT 98
--- NOTE | 2022-11-25 11:43 | EXP.DC.SUM ---
General Admission date:: 11/24/22 Discharge date: 11/25/22 HPI HPI HPI: Mr. Pollock is a 72-year-old male with past medical history of symptomatic bradycardia status post pacemaker placement, CAD status post PETEY in 2019, A-fib on Eliquis, CVA, hypertension, hyperlipidemia, diabetes, prostate cancer on androgen deprivation therapy, and cardiac sarcoid. He presented to the ER because of complaint of chest pain radiating down his left arm. He reports that it started yesterday. Has become somewhat worse today and is intermittent. Was constant initially but is somewhat improved by the time I evaluate him on the floor. Nothing makes it better or worse. Does have associated nausea but no emesis. Pain with deep breath. Denies fever, chills, syncope. Feels short of breath all the time. Recent admission in June after pacemaker placement with complication of cardiac tamponade, necessitating pericardiocentesis with evacuation of 400 cc of bloody aspirate. On evaluation in the ER, initial troponin negative. Cardiology was consulted and recommended admission given significance of cardiac history and patient's symptoms. Medicine consulted for admission. Patient pleasant on exam after arriving to the floor. at bedside who helps give history. Reports taking all of his meds in the morning but does not take evening dose if they require a second dose. Hospital Course Hospital Course Hospital Course: Mr. Pollock is a 72-year-old male with significant cardiac history. Presented to the ER with chest pain in the left chest that radiated to his left back. Given his significant history, recent pericardial effusion, ER consulted cardiology. Cardiology recommended admission for serial troponins, cardiac imaging, and evaluation in the morning for possible heart cath. Cardiology consulted, recommended patient follow-up with further evaluation for his sarcoidosis. No intervention during hospitalization. Recommended streamlining medications as below. Patient stable to discharge home. Recommend follow-up in the coming weeks as an outpatient. Problems addressed as follows: Typical angina CAD HLD - Patient having chest pain, initial 2 troponins negative. Significant risk factors however. Monitored overnight on telemetry. No events. Device was interrogated with no concerning findings. Cardiology was consulted, recommended making some adjustments to patient's medication by increasing his Lasix for 3 days, transitioning to metoprolol succinate 50 mg daily as he is only taking his carvedilol once daily currently. And transitioning to Xarelto from Eliquis twice daily for once daily dosing. A-fib pacemaker in-situ, Pacemaker dependent - Heart rate controlled with pacing. Transition to metoprolol once daily and Xarelto once daily for improved compliance. Diabetes mellitus -A1c obtained, elevated at 8.9. Appears poorly controlled at this time. Treated with sliding scale insulin and fingerstick ACHS during admission. Recommend resuming metformin at discharge. Initiated on insulin glargine once daily. Instructed on how to dose medication. Continue this at discharge, recommend further adjusting in the outpatient setting by PCP. Close follow-up in the coming weeks for further titration. Recommend discontinuing glipizide given patient's comorbidities and risk for hypoglycemia Stable for discharge home Exam Data for Last 24 hours Vital signs and Labs for Last 24 Hours: Temp Pulse Resp BP Pulse Ox O2 Del Method 98.7 F 60 18 113/59 L 98 Room Air 11/25/22 11:35 11/25/22 11:35 11/25/22 11:35 11/25/22 11:35 11/25/22 11:35 11/25/22 11:35 Laboratory Results - last 24 hr 11/24/22 13:07: WBC 5.0, RBC 4.57 L, Hgb 13.3 L, Hct 41.9 L, MCV 91.5, MCH 29.1, MCHC 31.8, RDW 15.5, Plt Count 129 L, MPV 8.0, Neut % (Auto) 70.3, Lymph % (Auto) 19.1, Pershing % (Auto) 8.3, Eos % (Auto) 1.9, Baso % (Auto) 0.5, Neut # (Auto) 3.5, Lymph # (Auto) 0.9, Pershing # (Auto)
[2022-11-27 07:27] LABS: POC Glucose,Bedside 257 (70-110)
--- NOTE | 2022-11-28 14:53 | CARE MANAGER ---
Contacted patient's related to hospital discharge. She states he is doing ok. They did get all new medications and discontinued appropriate ones. They deny any questions or concerns and are aware of follow up appointments. COLBY Fields
== END 2022-11-25 12:23 | disposition home or self-care (01) ==
LOC: ER 15:39 → 2ND 16:07
PROVIDERS: Emergency Medicine; Physician Assistant; Admitting Provider Internal Medicine Adolescent Medicine; Emergency Provider Emergency Medicine; Visit Provider Internal Medicine Adolescent Medicine
DX: I10 Essential (primary) hypertension (principal); I42.9 Cardiomyopathy, unspecified; I25.118 Atherosclerotic heart disease of native coronary artery with other forms of angina pectoris; Z95.0 Presence of cardiac pacemaker; I48.11 Longstanding persistent atrial fibrillation; E11.9 Type 2 diabetes mellitus without complications; Z79.4 Long term (current) use of insulin; E78.49 Other hyperlipidemia; R07.89 Other chest pain; Z79.01 Long term (current) use of anticoagulants; I25.2 Old myocardial infarction; Z79.899 Other long term (current) drug therapy; Z79.84 Long term (current) use of oral hypoglycemic drugs; Z79.83 Long term (current) use of bisphosphonates; C61 Malignant neoplasm of prostate
CPT/HCPCS: 36415; 71046; 71275; 80053; 80061; 82962; 83036; 83735; 83880; 84484; 85025; 85378; 93005; 93306; 99285; G0378; Q9967

== ENCOUNTER 2023-08-28 10:17 | Outpatient (CLI) | payer MEDICARE, MEDICAID, SELFPAY ==
--- NOTE | 2023-08-28 | CA_ITS ---
APPROVED REPORT Exam: Pharmacologic Technologist: Leisa Milner, Ht: 5 ft 8 in Wt: 165 lbs BSA: 1.88 m2 HR: 60 bpm BP: 129/76 mmHg Rhythm: NSR Medical History Medications: Pravastatin,,,,, Metformin,,,,, Metoprolol Succinate,,,,, Lasix,,,,, Ramipril,,,,, XaRELTO,,,,, INSULIN,,,,, Vit B12,,,,, Aldactone,,,,, JaRDiance,,,,, Escitalopram Oxalate,,,,, Cardiac Risk Factors: HTN, Diabetes (insulin) Stress Test Details Test: LEXISCAN HR Resting HR: 60 bpm Max Heart Rate (APMHR): 146 bpm Max HR Achieved: 98 bpm Target HR (85% APMHR): 124 bpm % of APMHR: 67 Recovery HR: 64 bpm BP Resting BP: 129.0/76.0 mmHg Max BP: 129.0/76.0 mmHg Recovery BP: 120.0/54.0 mmHg ECG Resting ECG: V-paced Stress ECG: No significant ST changes Clinical Exercise duration: 04:00 min Highest Stage Achieved: Exercise capacity: 1.0 METs Stress ECG Conclusion During lexiscan pt had no symptoms. No arrhythmias noted. Conclusion: Unremarkable lexiscan stress. Myoview images reported separately. Test Summary REST . . . . . . . Sitting REST 06:12 . . 60 . 129/ 76 . . Stage 1 01:00 . . 60 . . . . Stage 2 01:00 . . 66 . . . . Stage 3 01:00 . . 64 . 110/ 47 . . Stage 4 01:00 . . 64 . 120/ 47 . Stop exercise at 04:00 RECOVERY 01:00 . . 65 . . . . RECOVERY 02:00 . . 62 . 129/ 50 . . RECOVERY 02:08 . . 62 . 129/ 50 . . Electronically signed by : Lelia Em MD 08/29/2023 11:06:29
--- NOTE | 2023-08-28 10:17 | NM_ITS ---
APPROVED REPORT Exam: Nuclear Stress Test Indication: Chest pain, SOB, Syncope, Fatigue, CAD, Hx of MN, HTN, DM, High cholesterol, Family history Patient Location: Outpatient Stress Tech: Leisa Milner NM Tech:Asha Reynoso, ARRT, RT (R)(N) Ht: 5 ft 9 in Wt: 165 lbs HR: 60 bpm BP: 129/76 mmHg BSA: 1.90 m2 TID: 1.28 BMI: 24.3 History: Chest pain, SOB, Syncope, Fatigue, CAD, Hx of [place], HTN, DM, High cholesterol, Family history Procedure: Patient received 0.4 mg of intravenous AdenosineLexiscan, resting heart rate 60 bpm, resting blood pressure 129/76 mmHg, with Lexiscan maximum heart rate achieved was 98 bpm which is % of the maximum predicted heart rate and blood pressure was 129/76 mmHg. With Lexiscan, patient denied any complaint of chest pain. Cardiac Stress and Resting SPECT Images: Cardiac Stress and Resting SPECT images were obtained using technetium 99m Myoview 29.8 mCi stress and 10.14 mCi at rest. Resting and stress imaging in supine and prone positions demonstrate a small sized, severe, partially reversible perfusion defect in the distal anterior LV wall and the LV apex. There is increased transient ischemic dilatation ratio (TID 1.28) suggestive of possible multivessel disease or balanced ischemia. Gated imaging demonstrates mild reduction in global LV systolic function. There is severe hypokinesis of the distal anterior LV wall and the LV apex. LVEF is calculated at 47%. Conclusion: Small sized, severe, partially reversible perfusion defect in the distal anterior LV wall and the LV apex. There is increased transient ischemic dilatation ratio (TID 1.28) suggestive of possible multivessel disease or balanced ischemia. Gated imaging demonstrates mild reduction in global LV systolic function. There is severe hypokinesis of the distal anterior LV wall and the LV apex. LVEF is calculated at 47%. Electronically signed by : Lelia Em MD 08/29/2023 12:28:22
[2023-08-28 10:41] LABS: Basophils # 0.1 K/mm3 (0-0.2); Basophils % 1.1 % (0.1-2.0); Eosinophils # 0.2 K/mm3 (0.0-0.4); Eosinophils % 2.1 % (0.1-12.0); Hematocrit 43.4 % (42.0-52.0); Lymphocytes # 1.6 K/mm3 (0.7-4.5); Lymphocytes % 21.2 % (10-50); Mean Corpuscular HGB Conc 32.3 g/dL (31.8-35.4); Mean Corpuscular Hemoglobin 30.6 pg (27.0-31.2); Mean Corpuscular Volume 94.7 fl (80-94); Mean Platelet Volume 7.8 fl (7.4-10.4); Monocytes # 0.5 K/mm3 (0.1-1.0); Monocytes % 6.7 % (1.7-9.3); Neutrophils # 5.1 K/mm3 (1.8-7.8); Neutrophils % 68.8 % (37.0-80.0); Platelet Count 163 K/mm3 (142-424); Red Blood Count 4.59 M/mm3 (4.60-6.20); Red Cell Distribution Width 15.4 % (11.5-17.5); White Blood Count 7.3 K/mm3 (4.8-10.8)
[2023-08-28 11:26] LABS: Chloride 101 mmol/L (98-107); Potassium 4.1 mmoL/L (3.5-5.1); Sodium 136 mmol/L (136-145)
[2023-08-28 11:29] LABS: Alanine Aminotransferase 12 U/L (12-78); Albumin Level 4.4 g/dl (3.5-5.0); Alkaline Phosphatase 111 U/L (38-126); Anion Gap 14.1 mEq/L (5-15); Aspartate Amino Transferase 24 U/L (17-59); Bilirubin,Indirect 0.6 mg/dL (0.0-0.9); Bilirubin,Total 0.6 mg/dl (0.2-1.3); Bilirubin,Unconjugated 0.7 mg/dL (0.0-1.1); Blood Urea Nitrogen 15 mg/dl (9-20); Calcium 10.1 mg/dl (8.4-10.2); Carbon Dioxide 25 mmol/L (22.0-30.0); Cholesterol 156 mg/dl (140-200); Estimated Glomerular Filt Rate 65 ml/min (>60); GFR (African American) 79 ML/MIN (>60); Glucose 94 mg/dl (74-100); Magnesium 1.7 mg/dl (1.6-2.3); Total Protein,Serum 7.2 g/dl (6.3-8.2); Triglycerides 131 mg/dl (30-150); VLDL Cholesterol 26 mg/dL (0-40)
[2023-08-28 11:30] LABS: Chol/HDL Ratio 3.4 (1-3.5); HDL Cholesterol 46 mg/dl (40-60)
[2023-08-28 11:46] LABS: Free T4 (Free Thyroxine) 1.01 ng/dl (0.78-2.19)
[2023-08-28 12:00] LABS: Thyroid Stimulating Hormone 1.77 uIU/mL (0.465-4.68)
[2023-08-28] MEDS: REGADENOSON 0.4MG/5ML SYRINGE 0.4 MG IV (13:17)
[2023-08-28] MEDS: SODIUM CHLORIDE 0.9% 10ML SYR (RAD ONLY) 10 ML IV ×2 (13:17)
[2023-08-28] MEDS: ISOTOPE MYOVIEW (PER STUDY) 1 DOSE IV (13:17)
== END 2023-08-28 23:59 | disposition home or self-care (01) ==
LOC: RAD 10:17
PROVIDERS: PCP Nurse Practitioner Family; Visit Provider Nurse Practitioner Family
DX: R06.02 Shortness of breath (principal); I11.9 Hypertensive heart disease without heart failure; I25.118 Atherosclerotic heart disease of native coronary artery with other forms of angina pectoris; I42.9 Cardiomyopathy, unspecified; R29.6 Repeated falls; I48.11 Longstanding persistent atrial fibrillation; Z95.0 Presence of cardiac pacemaker; E78.49 Other hyperlipidemia
CPT/HCPCS: 78452; 80048; 80061; 80076; 83735; 84439; 84443; 85025; 93017; 93018; A9502; J2785

== ENCOUNTER 2023-10-11 09:44 | Day surgery (SDC) | payer MEDICARE, MEDICAID, SELFPAY ==
[2023-10-11] VITALS (10 sets, daily range): BP systolic 121–156; BP diastolic 49–80; PULSE 60–76; RESP 17–19; TEMP 36.8–37.1; O2SAT 96–100; BMI 25.5
--- NOTE | 2023-10-11 07:20 | IR_ITS ---
APPROVED REPORT Patient Location: Outpatient PROCEDURES Left heart catheterization Left ventriculogram Selective coronary angiogram FFR angiography to the right coronary Drug-eluting stent deployment to the distal dominant right coronary INDICATION Coronary artery disease, FFR index of 0.74, Abnormal Myoview/stress test, Angina pectoris Informed consent was obtained prior to the procedure. COMPLICATIONS NONE Estimated Blood Loss: LESS THAN 10 ML TECHNIQUE One percent lidocaine used to anesthetize the right anterior aspect of the wrist. The right radial artery was accessed via the Seldinger technique. A 6 Malay sheath was placed in the right radial artery. 2.5 mg of Verapamil, 800 mcg of nitroglycerin, 1mg Lidocaine and 5000 U Heparin were given through the arterial sheath. The papa catheter was also used to perform left heart catheterization, left ventriculogram and selective coronary angiogram. Cath works angiography was performed to evaluate the right coronary artery. The FFR index calculated a stenosis of 0.74. Because this was hemodynamically significant therapeutic heparin was administered giving a therapeutic ACT and the guide catheters placed in the right coronary artery followed by a Choice PT extra-support wire placed distally. A 3 mm x 38 mm Inocente frontier stent was deployed at 18 isra reducing the stenosis. A 3 mm x 12 mm noncompliant balloon was deployed at 24 isra to post dilate the midportion of the stent. There was residual stenosis therefore 3.5 x 12 mm noncompliant balloon was then deployed in the same area at 24 isra this time reducing the stenosis to less than 10%. Excellent angiograph results were obtained at the end the procedure the brevis was removed the sheath was removed and hemostasis was achieved using TR banding patient was transferred to the postop putting in stable condition ANGIOGRAPHIC RESULTS The left main artery Normal The left anterior descending artery Widely patent with minimal 10% proximal and mid vessel luminal regularities The circumflex artery Nondominant large with 10 to 20% mild luminal regularities The right coronary artery Dominant with proximal and mid vessel 30% stenosis with an angiographically ambiguous distal stenosis which proved to be in excess of 70% by FFR criteria The LEWIS ventriculogram reveals Ejection fraction of 45 to 50% The left ventricular end-diastolic pressure 20 mmHg IMPRESSION Hemodynamically severe disease in the distal dominant right coronary Successful stent to the distal dominant right coronary artery severe disease reduced to 0% with 1 drug-eluting stent Slightly reduced ejection fraction Mildly elevated elevated P PLAN 1. Dual antiplatelet therapy 2. LDL less than 55 if she is at high intensity statin 3. Avoidance of tobacco products 4. Risk factor modification 5. Cardiac rehabilitation Electronically signed by : Marco A Gavin MD 10/11/2023 14:58:48
[2023-10-11 10:05] LABS: Basophils % 0.8 % (0.1-2.0); Eosinophils # 0.1 K/mm3 (0.0-0.4); Eosinophils % 2.4 % (0.1-12.0); Hemoglobin 13.7 g/dL (14.1-18.0); Lymphocytes # 1.1 K/mm3 (0.7-4.5); Lymphocytes % 21.6 % (10-50); Mean Corpuscular HGB Conc 33.3 g/dL (31.8-35.4); Mean Platelet Volume 7.9 fl (7.4-10.4); Monocytes # 0.4 K/mm3 (0.1-1.0); Monocytes % 7.4 % (1.7-9.3); Neutrophils # 3.4 K/mm3 (1.8-7.8); Neutrophils % 67.8 % (37.0-80.0); Platelet Count 140 K/mm3 (142-424); Red Blood Count 4.41 M/mm3 (4.60-6.20); Red Cell Distribution Width 14.9 % (11.5-17.5)
[2023-10-11 10:27] LABS: Chloride 103 mmol/L (98-107); Potassium 3.8 mmoL/L (3.5-5.1); Sodium 136 mmol/L (136-145)
[2023-10-11 10:30] LABS: Anion Gap 10.8 mEq/L (5-15); Blood Urea Nitrogen 13 mg/dl (9-20); Calcium 9.6 mg/dl (8.4-10.2); Carbon Dioxide 26 mmol/L (22.0-30.0); Creatinine Clearance Estimated 70 mL/min (50-200); Estimated Glomerular Filt Rate 73 ml/min (>60); GFR (African American) 88 ML/MIN (>60); Glucose 191 mg/dl (74-100)
[2023-10-11] MEDS: NITROGLYCERIN 800MCG/8ML SYR (CATH LAB) 800 MCG IA (13:50)
[2023-10-11] MEDS: diphenhydrAMINE 50MG/ML VIAL 50 MG IV (13:50)
[2023-10-11] MEDS: HEPARIN 1,000 UNITS/ML 10ML VIAL (CATH LAB) 10000 UNIT IV ×2 (13:51→14:14)
[2023-10-11] MEDS: LIDOCAINE 1% 10ML MDV 20 ML IJ (13:51)
[2023-10-11] MEDS: HEPARIN 1,000 UNITS/500ML NS (CATH LAB) 3000 UNIT IV (13:51)
[2023-10-11] MEDS: VERAPAMIL 2.5MG/ML 2ML VIAL 2.5 MG IV (13:51)
[2023-10-11] MEDS: 0.9 % SODIUM CHLORIDE 500 ML 25 ML IV (13:52)
[2023-10-11] MEDS: CLOPIDOGREL 300MG TABLET 600 MG PO (14:23)
[2023-10-11] MEDS: FENTANYL 100MCG/2ML VIAL 50 MCG IV (14:23)
[2023-10-11] MEDS: MIDAZOLAM HCL 1MG/1ML 5ML VIAL 1 MG IV (14:24)
[2023-10-11] MEDS: ONDANSETRON 4MG/2ML VIAL 4 MG IV (15:06)
[2023-10-11 15:09] LABS: POC Glucose,Bedside 104 (70-110)
[2023-10-11] MEDS: IOPAMIDOL-370 (76%);100ML BOTTLE 70 ML IV (15:34)
[2023-10-11 15:39] LABS: CATHL Activated Clotting Time 310 SEC (74-125)
== END 2023-10-11 16:59 | disposition home or self-care (01) ==
PROVIDERS: PCP Family Medicine; Visit Provider Internal Medicine
DX: I48.11 Longstanding persistent atrial fibrillation; E78.49 Other hyperlipidemia; Z95.0 Presence of cardiac pacemaker; I25.5 Ischemic cardiomyopathy; E11.9 Type 2 diabetes mellitus without complications; Z79.4 Long term (current) use of insulin; I10 Essential (primary) hypertension; R94.39 Abnormal result of other cardiovascular function study; I25.118 Atherosclerotic heart disease of native coronary artery with other forms of angina pectoris; Z79.899 Other long term (current) drug therapy; Z79.02 Long term (current) use of antithrombotics/antiplatelets; R29.6 Repeated falls; C61 Malignant neoplasm of prostate
CPT/HCPCS: 36415; 80048; 82962; 85025; 85347; 92928; 93458; 93571; 99152; 99153; C1725; C1769; C1874; C9600; J1200; J1644; J2250; J2405; J3010; Q9967

== ENCOUNTER 2023-10-13 10:44 | Outpatient (CLI) | payer MEDICARE, MEDICAID, SELFPAY ==
[2023-10-13 11:14] LABS: Chloride 103 mmol/L (98-107)
[2023-10-13 11:15] LABS: Sodium 138 mmol/L (136-145)
[2023-10-13 11:17] LABS: Blood Urea Nitrogen 17 mg/dl (9-20); Estimated Glomerular Filt Rate 54 ml/min (>60); GFR (African American) 65 ML/MIN (>60)
[2023-10-13 11:18] LABS: Calcium 9.3 mg/dl (8.4-10.2); Carbon Dioxide 28 mmol/L (22.0-30.0); Glucose 241 mg/dl (74-100)
[2023-10-13 15:11] LABS: Basophils % 0.5 % (0.1-2.0); Eosinophils # 0.1 K/mm3 (0.0-0.4); Eosinophils % 1.8 % (0.1-12.0); Hematocrit 42.1 % (42.0-52.0); Hemoglobin 13.3 g/dL (14.1-18.0); Lymphocytes # 0.9 K/mm3 (0.7-4.5); Lymphocytes % 18.4 % (10-50); Mean Corpuscular HGB Conc 31.6 g/dL (31.8-35.4); Mean Corpuscular Hemoglobin 30.7 pg (27.0-31.2); Mean Corpuscular Volume 97.3 fl (80-94); Mean Platelet Volume 8.4 fl (7.4-10.4); Monocytes # 0.4 K/mm3 (0.1-1.0); Monocytes % 8.7 % (1.7-9.3); Neutrophils # 3.4 K/mm3 (1.8-7.8); Neutrophils % 70.5 % (37.0-80.0); Platelet Count 150 K/mm3 (142-424); Red Blood Count 4.32 M/mm3 (4.60-6.20); Red Cell Distribution Width 14.9 % (11.5-17.5); White Blood Count 4.8 K/mm3 (4.8-10.8)
== END 2023-10-13 23:59 | disposition home or self-care (01) ==
LOC: LAB 10:45
PROVIDERS: PCP Family Medicine; Visit Provider Internal Medicine
DX: I25.10 Atherosclerotic heart disease of native coronary artery without angina pectoris (principal); Z98.61 Coronary angioplasty status
CPT/HCPCS: 36415; 80048; 85025

== ENCOUNTER 2023-11-08 08:43 | Outpatient (CLI) | payer MEDICARE, MEDICAID, SELFPAY ==
[2023-11-08 13:28] LABS: Chloride 105 mmol/L (98-107); Sodium 139 mmol/L (136-145)
[2023-11-08 13:29] LABS: Potassium 3.7 mmoL/L (3.5-5.1)
[2023-11-08 13:31] LABS: Blood Urea Nitrogen 15 mg/dl (9-20); Estimated Glomerular Filt Rate 73 ml/min (>60); GFR (African American) 88 ML/MIN (>60)
[2023-11-08 13:32] LABS: Anion Gap 12.7 mEq/L (5-15); Calcium 9.9 mg/dl (8.4-10.2); Carbon Dioxide 25 mmol/L (22.0-30.0); Glucose 148 mg/dl (74-100)
== END 2023-11-08 23:59 | disposition home or self-care (01) ==
LOC: LAB 08:44
PROVIDERS: PCP Family Medicine; Visit Provider Nurse Practitioner Family
DX: I20.89 Other forms of angina pectoris (principal); I48.11 Longstanding persistent atrial fibrillation; Z95.0 Presence of cardiac pacemaker; E11.9 Type 2 diabetes mellitus without complications; Z79.4 Long term (current) use of insulin; E78.49 Other hyperlipidemia; I42.9 Cardiomyopathy, unspecified; R06.02 Shortness of breath
CPT/HCPCS: 36415; 80048

== ENCOUNTER 2024-05-21 13:23 | Outpatient (CLI) | payer MEDICARE, MEDICAID, SELFPAY ==
--- NOTE | 2024-05-21 13:27 | CA_ITS ---
APPROVED REPORT EXAM: Comprehensive 2D, Doppler, and color-flow Echocardiogram [employer]house Supervisor 3Rd Shift: Barbra Adams RDCS Ht: 5 ft 8 in Wt: 164lbs BSA: 1.88 BP: 132/61 mmHg Indications: CAD,PP,CM,EF CK M-Mode Dimensions RVDd 2.14 cm (0.9-2.6) LA Diam 3.50 cm (1.9-4.0) LVDd 4.92 cm (3.5-5.7) LVDs 3.62 cm (3.5-5.7) IVSd 1.17 cm (0.6-1.1) PWd 0.94 cm (0.6-1.1) EF (Teich) 51.50% FS 26.40% EDV (Teich) 113.90 mL ESV (Teich) 55.20 mL LV Diastology E Decel Time 270 (160-240 msec) E/A Ratio 0.6 Aortic Valve QUINN Index 1.32 cm2/m2 AoV Peak Joe. 168.0 (50-130 cm/s) AI PHT 547.00 ms AO Peak GR. 11.30 mmHg AO Mean GR. 5.70 (<5 mmHg) AO VTI 27.1 (18-25 cm) QUINN (VTI) 2.53 (2.5-4.5 cm2) Mitral Valve MV E Max Joe. 63.0 (40-130 cm/s) MV A Velocity 104.0 (40-130 cm/s) E/A Ratio 0.61 MV PHT 79.0 ms Left Ventricle The left ventricle is normal size. The left ventricular systolic function is normal. The left ventricular ejection fraction is within the normal range. There is increased LV wall thickness. There is normal LV segmental wall motion. Transmitral Doppler flow pattern suggests impaired LV relaxation. LVEF is 55%. Right Ventricle The right ventricle is mildly dilated. The right ventricular systolic function is normal. Atria Left atrium is mildly dilated. Right atrium is mildly dilated. There is no Doppler evidence of interatrial shunt. Aortic Valve The aortic valve is mildly thickened. There is no aortic valvular stenosis. Mild aortic regurgitation. Mitral Valve The mitral valve is normal in structure. No evidence of mitral valve stenosis. Trace mitral regurgitation. Tricuspid Valve The tricuspid valve leaflets are thin and pliable. Mild tricuspid regurgitation. RVSP is 20-25 mmHg. Pulmonic Valve The pulmonary valve is normal in structure. Mild pulmonic regurgitation. Great Vessels The aortic root is normal in size. IVC is normal in size and collapses >50% with inspiration. Pericardium There is no pericardial effusion. Other Information Study Quality: Fair Conclusion Normal biventricular systolic function. Mild RV dilation. Mild biatrial dilation. Mild AI, mild TR, mild PI. Electronically signed by : Lelia Em MD 05/22/2024 12:18:08
== END 2024-05-21 23:59 | disposition home or self-care (01) ==
LOC: RT 13:23
PROVIDERS: PCP Family Medicine; Visit Provider Nurse Practitioner Family
DX: I51.7 Cardiomegaly (principal); I35.1 Nonrheumatic aortic (valve) insufficiency; I36.1 Nonrheumatic tricuspid (valve) insufficiency; I37.1 Nonrheumatic pulmonary valve insufficiency; I50.22 Chronic systolic (congestive) heart failure; I42.8 Other cardiomyopathies
CPT/HCPCS: 93306

== ENCOUNTER 2024-10-06 09:12 | Inpatient (IN) | payer MEDICARE, MEDICAID, SELFPAY ==
--- OUTSIDE RECORDS SUMMARY | 2024-09-12 08:00 | XMS_ITS | Encounter Summary ---
Author Organization Healthcare Address [address] [place] [address] Care Team Providers Care Contact Representative Name Role Phone Eric Maria MD Primary Care Provider Encounter Details Date Type Department Care Team (Latest Contact Info) Description 09/12/2024 8:00 AM EDT Ancillary Procedure [facility] [address], [address] [place] [id number] Sarcoidosis; Shortness of breath Social History Tobacco Use Types Packs/Day Years Used Date Smoking Tobacco: Never Passive Smoke Exposure: Current Smokeless Tobacco: Current Chew Alcohol Use Standard Drinks/Week Comments Not Currently 10 (1 standard drink = 0.6 oz pure alcohol) Beer once in a while. I've found it helps with headaches. Humiliation, Afraid, Rape, and Kick questionnair e Answer Date Recorded Within the last year, have y ou been afraid of your partner or ex-partner? No 06/24/2024 Within the last year, have y ou been humiliated or emotionally abused in other ways by your partner or ex-partner? No Within the last year, have y ou been kicked, hit, slapped, or otherwise physically hurt by your partner or ex-partner? No 06/24/2024 Within the last year, have y ou been raped or forced to have any kind of sexual activity by your partner or ex-partner? No 06/24/2024 Social Connection and Isolation Panel Answer Date Recorded Frequency of Communication with Friends and Fami ly Not on file 06/24/2024 Frequency of Social Gatherings with Friends and Family Not on file 06/24/2024 Attends Yarsani Services Not on file 06/24 Active Member of Clubs or Organizations Not on f ile 06/24/2024 Attends Club or Organization Meetings Not on andrea e 06/24/2024 Are you , , di vorced, , never , or living with a partner? 06/24/2024 Overall Financial Resource Strain (CARDIA) Answe r Date Recorded How hard is it for you to pa y for the very basics like food, housing, medical care, and heating? Not very hard 06/24/2024 PHQ-2 Answer Date Recorded Patient Health Questionnaire-2 Score 0 09/12/2024 Hunger Vital Sign Answer Date Recorded Within the past 12 months, y ou worried that your food would run out before you got the money to buy more. Never true 06/25/19 25 Within the past 12 months, t he food you bought just didn't last and you didn't have money to get more. Never true 06/24/2024 PRAPARE - Transportation Answer Date Re corded In the past 12 months, has l ack of transportation kept you from medical appointments or from getting medications? No 06/05 In the past 12 months, has l ack of transportation kept you from meetings, work, or from getting things needed for daily living? No 06/24/2024 PHQ-9 Answer Date Recorded Patient Health Questionnaire-9 Score 1 09/12/2024 Housing Stability Vital Sign Answer Zak e Recorded In the last 12 months, was t here a time when you were not able to pay the mortgage or rent on time? No 06/24/2024 In the past 12 months, how m any times have you moved where you were living? 0 06/24/2024 At any time in the past 12 m [facility], were you homeless or living in a fpc (including now)? No 06/24/2024 Utilities Answer Date Recorded In the past 12 months has th e electric, gas, oil, or water company threatened to shut off services in your home? No 06/24/2024 Sex and Gender Information Value Date Recorded Sex Assigned at Male 12/02/2022 10:35 AM EDT Legal Sex Male 7:31 PM EDT Gender Identity Male 12/02/2022 10:35 AM EDT Sexual Orientation Straight 12/02/2022 10 :35 AM EDT documented as of this encounter Functional Status * Over the past 2 weeks, how often have you been bothered by any of the following problems? Question Answer Date of Assessment Author Little interest or pleasure in doing things Not at all 09/12/2024 9:04 AM EDJessica Garcia Feeling down, depressed, or hopeless Not at all 09/03 9:04 AM EDT Jessica Ga Patient Health Questionnaire-2 Score 0 09/03 9:04 AM SALONIT Jessica Ga * Question Answer Date of Assessment Author Trouble falling or staying a sleep, or sleeping too much Not at all 09/12/2024 9:04 AM Jessica Flores Feeling tired or having stefania le energy Not at all 09/12/2024 9:04 AM Jessica Flores Poor appetite or overeating Several days 09/12/2024 9: 04 AM Jessica Flores Feeling bad about yourself - or that you are a failure or have let yourself or your family down Not at all 09/12/2024 9:04 AM Tre Flores Trouble concentrating on thi ngs, such as reading the newspaper or watching television Not at all 09/12/2024 9:04 AM Jessica Flores Moving or speaking so slowly that other people could have noticed? Or the opposite - being so fidgety or restless that you have been moving around a lot more than usual. Not at all 09/12/2024 9:04 AM Jessica Flores Thoughts that you would be b delilah off or hurting yourself in some way Not at all 09/12/2024 9:04 AM Jessica Flores Patient Health Questionnaire -9 Score 1 09/12/2024 9:04 AM Jessica Flores * If you checked off any problems on this questionnaire so far, Question Answer Date of Assessment Author How difficult have these problems made it for you to do your work, take care of things at home, or get along with other people? Not difficult at all 09/12/2024 9:04 AM EDT Jessica Ga * How difficult have these problems made it for you to do your work, take care of things at home, or get along with other people? Answer Date of Assessment Author Not difficult at all 09/12/2024 9:04 AM EDT Jessica Ga documented as of this encounter Plan of Treatment Upcoming Encounters Date Type Department Care Team (Late st Contact Info) Description 10/24/2024 10:45 AM EDT Office Visit [facility] Medicine Specialties [address] [place] [address] Jennifer Barber APRN, OMAR [address] [facility] [address] [place] [address] 11/21/2024 9:30 AM EDT Office Visit [facility] [address], [address] [place] [address] Chu Null MD [address] [facility] [address] [place] [address] 09/11/2025 10:00 AM EDT Ancillary Procedure [facility] [address] [place] [address] 09/11/2025 11:00 AM EDT Office Visit [facility] [address] [place] [address] Jeff Longoria MD [address] [place] [address] documented as of this encounter Goals Goal Patient Goal Type Associated Problems Recent Progress Patient-Stated? Author Autogenerat ed Goal Care Plan Autogenerated Problem No Antonia Johnson, RN Autogenerat ed Goal Care Plan Autogenerated Problem No Antonia Johnson, RN documented as of this encounter Procedures Procedure Name Priority Date/Time Associated Diagnosis Comments HC DIFFUSING CAPACITY - CARBON MONOXIDE DIFFUSING CAPACITY Routine 09/12/2024 8:36 AM EDT Sarcoidosis Shortness of breath documented in this encounter Results * (ABNORMAL) Pulmonary function test (09/12/2024 8:36 AM EDT) FFC8LWX 2.84(A) 2.87 - 4.99 L VYAIRE PFT FVC PRED 3.92 VYAIRE PFT FVC LLN 2.87 VYAIRE PFT FVCPREZSCORE -1.69 VYAIRE PFT FVCPRE%PRED 72 % % VYAIRE PFT FVC PREDAUT US_Quanjer GLI (2011) VYAIRE PFT FVC Z-SCORE -1.69 VYAIRE PFT FEV1 PRE 2.15 2.08 - 3.74 L VYAIRE PFT FEV1 PRED 2.94 VYAIRE PFT FEV1 LLN 2.08 VYAIRE PFT HPM5MIISAZEDS -1.52 VYAIRE PFT FEV1_Pre%Pred 73 % % VYAIRE PFT FEV1 PREDAUT US_Quanjer GLI (2011) VYAIRE PFT FEV1 Z-SCORE -1.52 VYAIRE PFT FEV1/FVC PRE 75.58 61.31 - 88.08 % VYAIRE PFT EHH0VPULIBE 75 VYAIRE PFT CNK7ZYWLXD 61 VYAIRE PFT VNR1UTFAESZNVEFM 0.02 VYAIRE PFT EWF6XMMCDK%PRED 100 % % VYAIRE PFT KUF4KIFRESFI US_[facility]anjer GLI (2011) VYAIRE PFT MFW1YSIAQWDCK 0 VYAIRE PFT BLI07-40% PRE 1.79 0.88 - 4.02 L/s VYAIRE PFT CUR75-98%_Pred 2.16 VYAIRE PFT CVF0173%LLN 0.88 VYAIRE PFT WLK6923%PREZSCORE -0.41 VYAIRE PFT RYT6840%PRE%PRED 83 % % VYAIRE PFT VQM0770%PREDAUT US_[place] GLI (2011) VYAIRE PFT PEF PRE 4.44(A) 5.35 - 9.86 L/s VYAIRE PFT PEF PRED 7.61 VYAIRE PFT PEF LLN 5.35 VYAIRE PFT PEFPREZSCORE -2.31 VYAIRE PFT PEFPRE%PRED 58 % % VYAIRE PFT PEF PREDNEW [facility] NHANES III (1998) VYAIRE PFT IIVCHMQOWMSQBBWB5RPM 8.88(A) 17.76 - 32.27 ml/(min* mmHg) VYAIRE PFT DLCOSINGLEBREATH PRED 24.36 VYAIRE PFT DLCOSINGLEBREATH LLN 17.76 VYAIRE PFT DLCOSINGLEBREATH Z-SCORE -4.61 VYAIRE PFT DLCOSINGLEBREATH % PRED 36.5 % VYAIRE PFT DLCOSINGLEBREATH PREDNEW MEXICO [facility] Stanojevic TLCO GLI (2019) VYAIRE PFT DLCOSINGLEBREATH Z-SCORE -4.61 09/12/2024 8:27 AM EDT VYAIRE PFT YAUCGSHLZDVSZCTWT0PJ E 8.88(A) 17.76 - 32.27 ml/(min* mmHg) VYAIRE PFT DLCOCSINGLEBREATH PRED 24.36 VYAIRE PFT DLCOCSINGLEBREATH LLN 17.76 VYAIRE PFT DLCOCSINGLEBREATH Z-SCORE -4.61 VYAIRE PFT DLCOCSINGLEBREATH % PRED 36.5 % VYAIRE PFT DLCOCSINGLEBREATH PREDNovant Health Rowan Medical Centervic TLCO GLI (2019) VYAIRE PFT NJQMJZ9RAH 2.13(A) 2.92 - 5.14 ml/(min* mmHg*L) VYAIRE PFT DLCOVAPRED 3.98 VYAIRE PFT DLCOVALLN 2.92 VYAIRE PFT DLCOVAZSCORE -3.02 VYAIRE PFT DLCOVA%PRED 53.5 % VYAIRE PFT DLCOVAPREDNEW MEXICO [facility] Stanojevic TLCO GLI (2019) VYAIRE PFT DLCOVAZSCORE -3.02 09/12/2024 8:27 AM EDT VYAIRE PFT GCAJYCSOY8PGP 2.13(A) 2.92 - 5.14 ml/(min* mmHg*L) VYAIRE PFT DLCOC SB/VA PRED 3.98 VYAIRE PFT DLCOC SB/VA LLN 2.92 VYAIRE PFT DLCOC SB/VA Z-SCORE -3.02 VYAIRE PFT DLCOC SB/VA % PRED 53.5 % VYAIRE PFT DLCOC SB/VA PREDNEW [facility] Stanojevic TLCO GLI (2019) VYAIRE PFT DLCOC SB/VA Z-SCORE -3.02 09/12 8:27 AM EDT VYAIRE PFT CQCPZOOPINAEUN0SET 4.17(A) 4.94 - 7.45 L VYAIRE PFT VASINGLEBREATH PRED 6.15 VYAIRE PFT VASINGLEBREATH LLN 4.94 VYAIRE PFT VASINGLEBREATH Z-SCORE -2.77 VYAIRE PFT VASINGLEBREATH % PRED 67.9 % VYAIRE PFT VASINGLEBREATH PREDNEW [facility]EX[facility] Stanojevic TLCO GLI (2019) VYAIRE PFT VASINGLEBREATH Z-SCORE -2.77 09/12/2024 8:27 AM EDT VYAIRE PFT JJMYMPLKBXXYJHA4DJY 2.60(A) 2.87 - 4.99 L VYAIRE PFT IVCSINGLEBREATH PRED 3.92 VYAIRE PFT IVCSINGLEBREATH LLN 2.87 VYAIRE PFT IVCSINGLEBREATH Z-SCORE -2.07 VYAIRE PFT IVCSINGLEBREATH % PRED 66.3 % VYAIRE PFT IVCSINGLEBREATH PREDAUTDR. [facility]AN [facility]. [facility]_Quanjer GLI (2011) VYAIRE PFT ISATU% VCMAX PRE 87.23 % VYAIRE PFT TLC SB PRE 4.32(A) 5.39 - 8.38 L VYAIRE PFT TLCSINGLEBREATH PRED 6.87 VYAIRE PFT TLCSINGLEBREATH LLN 5.39 VYAIRE PFT TLCSINGLEBREATH Z-SCORE -2.85 VYAIRE PFT TLCSINGLEBREATH % PRED 62.9 % VYAIRE PFT TLCSINGLEBREATH PREDBr[facility]am [facility] Lung volumes GLI (2019)__ VYAIRE PFT HB PRE 14.60 g(Hb)/dL VYAIRE PFT TNY5AJL 4.95(A) 5.39 - 8.38 L VYAIRE PFT TLCPRED 6.87 VYAIRE PFT TLCLLN 5.39 VYAIRE PFT TLCULN 8.38 VYAIRE PFT TLCZSCORE -2.14 VYAIRE PFT TLC%PRED 72.0 % VYAIRE PFT TLCPREDBrigham and [facility] Lung volumes GLI (2019)__ VYAIRE PFT VC0PRE 2.98 2.87 - 4.99 L VYAIRE PFT VCPRED 3.92 VYAIRE PFT VCLLN 2.87 VYAIRE PFT VCULN 4.99 VYAIRE PFT VCZSCORE -1.47 VYAIRE PFT VC%PRED 76.0 % VYAIRE PFT VCPREDAUT US_[place]jer GLI (2011) VYAIRE PFT IC0PRE 1.81(A) 2.06 - 3.85 L VYAIRE PFT ICPRED 2.98 VYAIRE PFT ICLLN 2.06 VYAIRE PFT ICULN 3.85 VYAIRE PFT IC Z-SCORE -2.08 VYAIRE PFT IC%PRED 61.0 % VYAIRE PFT ICPREDBrigham and [facility] Lung volumes GLI (2019)__ VYAIRE PFT TQBCIOQY9REG 3.14 2.65 - 5.23 L VYAIRE PFT FRCPLETH PRED 3.80 VYAIRE PFT FRCPLETH LLN 2.65 VYAIRE PFT FRCPLETH ULN 5.23 VYAIRE PFT FRCPLETH Z-SCORE -0.90 VYAIRE PFT FRCPLETH % PRED 82.6 % VYAIRE PFT FRCPLETH PREDBrigham and [facility] Lung volumes GLI (2019)__ VYAIRE PFT DIY2ZWN 1.17 0.35 - 2.42 L VYAIRE PFT ERVPRED 1.18 VYAIRE PFT ERVLLN 0.35 VYAIRE PFT ERVULN 2.42 VYAIRE PFT ERV Z-SCORE -0.02 VYAIRE PFT ERV%PRED 99.2 % VYAIRE PFT ERVPREDAUTH [place] Lung volumes GLI (2019)__ VYAIRE PFT RV0PRE 1.97 1.48 - 3.91 L VYAIRE PFT RVPRED 2.58 VYAIRE PFT RVLLN 1.48 VYAIRE PFT RVULN 3.91 VYAIRE PFT RVZSCORE -0.86 VYAIRE PFT RV%PRED 76.4 % VYAIRE PFT RVPREDAUTH [place] Lung volumes GLI (2019)__ VYAIRE PFT RV%UKS8FAK 39.80 25.64 - 50.70 % VYAIRE PFT RV%TLCPRED 38 VYAIRE PFT RV%TLCLLN 26 VYAIRE PFT RV%TLCULN 51 VYAIRE PFT RV%TLCZSCORE 0.25 VYAIRE PFT RV%TLC%PRED 105.1 % VYAIRE PFT RV%TLCPREDAUTH [place] Lung volumes GLI (2019)__ VYAIRE PFT Anatomical Region Laterality Modality PFT 09/12/2024 7:57 AM EDT Narrative 09/13/2024 11:13 AM EDT Pulmonary Function Testing Report Gerry Pollock 74 y.o. underwent pulmonary function testing today at the [facility]. The patient underwent spirometry, lung volumes by body plethysmography, and diffusion capacity testing. All tests were appropriately administered via ATS/ERS criteria. Spirometry: Test quality: A. Test is acceptable and useable for interpretation. Reduced FVC and TLC consistent with mild restriction. Lung Volumes: Test Quality: Appropriate QA standards were met. Reduced TLC consistent with simple restriction. Diffusion Capacity: Test Quality: Data should be interpreted with caution. Notably, DLCO may be underestimated due to incomplete inhalation. Diffusion capacity uncorrected for Hb is severely reduced. A reduced DLCO with a low VA and low/normal KCO is a pattern that may suggest loss of alveolar capillary structure with loss of lung volume in conditions such as emphysema and ILD. Trend: Compared to previous study dated 10/23/2024, there has been no significant change in FEV1, FVC, and TLC. There is a significant decrease in DLCO. us Jeff Longoria MD PFT ORDERABLES Final Result documented in this encounter Visit Diagnoses Diagnosis Sarcoidosis Shortness of breath documented in this encounter Additional Health Concerns Active Problems Noted Date Diagnosed Date Autogenerated Problem 06/25/2024 Autogenerated Problem 07/08/2024 Assessment Noted Time PHQ-9 Depression Total Score: 1 09/13/19 25 9:04 AM EDT A fall risk assessment has been complete d for the patient 09/12/2024 9:05 AM EDT A Body Mass Index follow-up plan has been documented for the patient 09/13/2024 1:46 AM EDT documented as of this encounter Care Teams Contact Representative Relationship Specialty Start Date End Date Eric Maria MD [address] [place] [id number] PCP - General 11/04/20 documented as of this encounter
--- OUTSIDE RECORDS SUMMARY | 2024-09-12 08:00 | XMS_ITS | Encounter Summary ---
Author Organization Healthcare Address [address] [place] [address] Care Team Providers Care Rib Builder Name Role Phone Eric Maria MD Primary Care Provider [phone] Encounter Details Date Type Department Care Team (Latest Contact Info) Description 09/12/2024 8:00 AM EDT Ancillary Procedure [place] [facility] [address] [place] [id number] Sarcoidosis; Shortness of breath Social History Tobacco [...] and Family Not on file 06/24/2024 Attends [employer] Not on file 06/24 Active Member [...] any time in the past 12 [facility], were you homeless or living in a correction (including now)? No 06/24/2024 Utilities Answer Date [...] Description 10/24/2024 10:45 AM EDT Office Visit [facility] Medicine Specialties [address] [place] [address] Jennifer Barber APRN, OMAR [address] [facility] [address] [place] [address] 11/21/2024 9:30 AM EDT Office Visit [facility] [address] [place] [address] Chu Null MD [address] [facility] [address] [place] [address] 09/11/2025 10:00 AM EDT Ancillary Procedure [facility] [address] [place] [address] 09/11/2025 11:00 AM EDT Office Visit [facility] [address] [place] [address] Jeff Longoria MD [address] [place] [address] documented as of this encounter [...] Pulmonary function test (09/12/2024 8:36 AM EDT) KFE8ODB 2.84(A) 2.87 - 4.99 L VYAIRE PFT FVC PRED 3.92 VYAIRE PFT FVC LLN 2.87 VYAIRE PFT FVCPREZSCORE -1.69 VYAIRE PFT FVCPRE%PRED 72 % % VYAIRE PFT FVC PREDAUT US_Quanjer GLI (2011) VYAIRE PFT FVC Z-SCORE -1.69 VYAIRE PFT FEV1 PRE 2.15 2.08 - 3.74 L VYAIRE PFT FEV1 PRED 2.94 VYAIRE PFT FEV1 LLN 2.08 VYAIRE PFT RUY7OWXICLOIP -1.52 VYAIRE PFT FEV1_Pre%Pred 73 % % VYAIRE PFT FEV1 PREDAUT US_[facility]jer GLI (2011) VYAIRE PFT FEV1 Z-SCORE -1.52 VYAIRE PFT FEV1/FVC PRE 75.58 61.31 - 88.08 % VYAIRE PFT JLK5SIUESJN 75 VYAIRE PFT JWC4MLLCHV 61 VYAIRE PFT VJW3PJGXJUJFUTFJ 0.02 VYAIRE PFT QCE6GHXSPH%PRED 100 % % VYAIRE PFT QUI9QKSTFMYT US_[facility] GLI (2011) VYAIRE PFT XLP4ENIDREIBV 0 VYAIRE PFT LBG10-77% PRE 1.79 0.88 - 4.02 L/s VYAIRE PFT WPV98-54%_Pred 2.16 VYAIRE PFT OTR3284%LLN 0.88 VYAIRE PFT JYV5214%PREZSCORE -0.41 VYAIRE PFT HFF2805%PRE%PRED 83 % % VYAIRE PFT LNH2665%PREDAUT US_[facility] GLI (2011) VYAIRE PFT PEF PRE 4.44(A) 5.35 - 9.86 L/s VYAIRE PFT PEF PRED 7.61 VYAIRE PFT PEF LLN 5.35 VYAIRE PFT PEFPREZSCORE -2.31 VYAIRE PFT PEFPRE%PRED 58 % % VYAIRE PFT [facility] (1998) VYAIRE PFT YPTEMWHKBECBQVVU7DYR 8.88(A) 17.76 - 32.27 ml/(min* mmHg) VYAIRE PFT DLCOSINGLEBREATH PRED 24.36 VYAIRE PFT DLCOSINGLEBREATH LLN 17.76 VYAIRE PFT DLCOSINGLEBREATH Z-SCORE -4.61 VYAIRE PFT DLCOSINGLEBREATH % PRED 36.5 % VYAIRE PFT DLCOSINGLEBREATH [facility] Stanojevic TLCO GLI (2019) VYAIRE PFT DLCOSINGLEBREATH Z-SCORE -4.61 09/12/2024 8:27 AM EDT VYAIRE PFT ZRQXVYVTOTRGCIOLA2HW E 8.88(A) 17.76 - 32.27 ml/(min* mmHg) VYAIRE PFT DLCOCSINGLEBREATH PRED 24.36 VYAIRE PFT DLCOCSINGLEBREATH LLN 17.76 VYAIRE PFT DLCOCSINGLEBREATH Z-SCORE -4.61 VYAIRE PFT DLCOCSINGLEBREATH % PRED 36.5 % VYAIRE PFT DLCOCSINGLEBREATH PREDPsychiatric hospitalvic TLCO GLI (2019) VYAIRE PFT CKVFZS4QNA 2.13(A) 2.92 - 5.14 ml/(min* mmHg*L) VYAIRE PFT DLCOVAPRED 3.98 VYAIRE PFT DLCOVALLN 2.92 VYAIRE PFT DLCOVAZSCORE -3.02 VYAIRE PFT DLCOVA%PRED 53.5 % VYAIRE PFT [facility]LCOVAPREDMESILL[facility] Stanojevic TLCO GLI (2019) VYAIRE PFT DLCOVAZSCORE -3.02 09/12/2024 8:27 AM EDT VYAIRE PFT VQAODOUWH5AAB 2.13(A) 2.92 - 5.14 ml/(min* mmHg*L) VYAIRE PFT DLCOC SB/VA PRED 3.98 VYAIRE PFT DLCOC SB/VA LLN 2.92 VYAIRE PFT DLCOC SB/VA Z-SCORE -3.02 VYAIRE PFT DLCOC SB/VA % PRED 53.5 % VYAIRE PFT DLCOC SB/VA [facility] Stanojevic TLCO GLI (2019) VYAIRE PFT DLCOC SB/VA Z-SCORE -3.02 09/12 8:27 AM EDT VYAIRE PFT ABAFPXMQOAFLQR3RRO 4.17(A) 4.94 - 7.45 L VYAIRE PFT VASINGLEBREATH PRED 6.15 VYAIRE PFT VASINGLEBREATH LLN 4.94 VYAIRE PFT VASINGLEBREATH Z-SCORE -2.77 VYAIRE PFT VASINGLEBREATH % PRED 67.9 % VYAIRE PFT VASINGLEBREATH PR[facility] Stanojevic TLCO GLI (2019) VYAIRE PFT VASINGLEBREATH Z-SCORE -2.77 09/12/2024 8:27 AM EDT VYAIRE PFT HUXCKDXTGCAKMMD0ZKT 2.60(A) 2.87 - 4.99 L VYAIRE PFT IVCSINGLEBREATH PRED 3.92 VYAIRE PFT IVCSINGLEBREATH LLN 2.87 VYAIRE PFT IVCSINGLEBREATH Z-SCORE -2.07 VYAIRE PFT IVCSINGLEBREATH % PRED 66.3 % VYAIRE PFT IVCSINGLEBREATH PREDAUTREH[facility]anjer GLI (2011) VYAIRE PFT ISATU% VCMAX PRE 87.23 % VYAIRE PFT TLC SB PRE 4.32(A) 5.39 - 8.38 L VYAIRE PFT TLCSINGLEBREATH PRED 6.87 VYAIRE PFT TLCSINGLEBREATH LLN 5.39 VYAIRE PFT TLCSINGLEBREATH Z-SCORE -2.85 VYAIRE PFT TLCSINGLEBREATH % PRED 62.9 % VYAIRE PFT TLCSINGLEBREATH [facility] volumes GLI (2019)__ VYAIRE PFT HB PRE 14.60 g(Hb)/dL VYAIRE PFT WCN3ODB 4.95(A) 5.39 - 8.38 L VYAIRE PFT TLCPRED 6.87 VYAIRE PFT TLCLLN 5.39 VYAIRE PFT TLCULN 8.38 VYAIRE PFT TLCZSCORE -2.14 VYAIRE PFT TLC%PRED 72.0 % VYAIRE PFT TLCPREDWest[facility] Lung volumes GLI (2019)__ VYAIRE PFT [...] VYAIRE PFT IC%PRED 61.0 % VYAIRE PFT ICPREDWest[facility] Lung volumes GLI (2019)__ VYAIRE PFT RZPLWETJ1WKX 3.14 2.65 - 5.23 L VYAIRE PFT FRCPLETH PRED 3.80 VYAIRE PFT FRCPLETH LLN 2.65 VYAIRE PFT FRCPLETH ULN 5.23 VYAIRE PFT FRCPLETH Z-SCORE -0.90 VYAIRE PFT FRCPLETH % PRED 82.6 % VYAIRE PFT FRCPLETH PREDWest[facility] Lung volumes GLI (2019)__ VYAIRE PFT MBC0UCY 1.17 0.35 - 2.42 L VYAIRE PFT [...] [place] Lung volumes GLI (2019)__ VYAIRE PFT RV%WOY0WPJ 39.80 25.64 - 50.70 % VYAIRE PFT [...] underwent pulmonary function testing today at the [facility]. The patient underwent spirometry, lung volumes [...] documented as of this encounter Care Teams Rib Builder Relationship Specialty Start Date End Date Eric Maria MD [address] [place] [id number] PCP - General 11/04/20 documented as of this encounter
--- OUTSIDE RECORDS SUMMARY | 2024-09-12 09:30 | XMS_ITS | Encounter Summary ---
Author Organization [facility] Address [address] [place] [address] Care Team Providers Care Patient Office Rep Name Role Phone Eric Maria MD Primary Care Provider [phone] Reason for Referral * Consultation (Routine) - Authorized Specialty Diagnoses / Procedures Referred By Manuela munoz Referred To Contact Diagnoses Pulmonary sarcoidosis (CMS/HCC) Dyspnea on exertion Jeff Longoria MD [address] [place] [address] Phone: tel: fax: Referral ID Status Reason Start Date Expiration Date V isits Requested Visits Authorized [id number] Authorized 09/12/2024 03/14/2026 1 1 Reason for Visit * Reason Comments Sarcoidosis Encounter Details Date Type Department Care Team (Late st Contact Info) Description 09/12/2024 9:30 AM EDT Office Visit [facility] Medicine Special[facility] [address] [place] [address] Jeff Longoria MD [address] [place] [address] Pulmonary sarcoidosis (CMS/HCC) (Primary Dx); [...] and Family Not on file 06/24/2024 Attends [employer] Not on file 06/24 Active Member [...] any time in the past 12 m [facility], were you homeless or living in [...] PMHx of Sarcoidosis, CAD, CVA x2, s/p [place] x3, pacemaker, prostate cancer The patient was [...] or progressive pulmonary parenchymal diseases and 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 Otherwise, [...] an episode of coffee-ground emesis. EGD at [facility] revealed multiplenon-bleeding ulcerations,. Seen today in clinic, [...] He had questions about going out [facility] and risk of infections. We discussed immunization [...] of Pulmonary, Critical Care and Sleep Medicine [facility] [1] Past Medical History: Diagnosis Date CAD (coronary artery disease) Carotid artery occlusion 2 heart attacks Cataract post replacement CVA (cerebral vascular accident) ([facility]/HCC) Depression DM (diabetes mellitus) type II, controlled, with peripheral vascular disorder ([facility]/HCC) Erectile dysfunction Glaucoma Headache Headache, tension-type Heart [...] pulmonary nodules, and splenic granulomas Shingles Stroke (CMS/[facility]) 3x Tremor both hands Vision loss macular degenration and mild glaucaoma Weakness of limb [2] Past Surgical History: Procedure Laterality Date CARDIAC PACEMAKER PLACEMENT N/A Pacemaker Placement from [employer] CARDIAC STENT Right 09/27/2023 CAROTID STENT CATARACT EXTRACTION N/A Cataract surgery from [employer] CORONARY ANGIOPLASTY WITH STENT PLACEMENT N/A Cardiac catheterization with stent placement from [employer] [3] Current Outpatient Medications Medication Sig Dispense Refill acetaminophen (Tylenol) 325 MG tablet Take 2 tablets by mouth every 4 hours as needed for fever (for temperature > 38.5). Under [place] law, monthly prescriptions (30 days) can be [...] Description 10/24/2024 10:45 AM EDT Office Visit [facility] Medicine Specialties [address] [place] [address] Jennifer Barber, LIONEL, DNP [address] [place] [address] 11/21/2024 9:30 AM EDT Office Visit [facility] [address] [place] [address] Chu Null MD [address] [place] [address] 09/11/2025 10:00 AM EDT Ancillary Procedure [facility] Medicine [facility] [address], [address] [place] [phone] 09/11/2025 11:00 AM EDT Office Visit [facility] Medicine [facility] [address], [address] [place] [phone] Jeff Longoria MD [address] [place] [id number] Scheduled Orders Name Type Priority Associated Diagnoses Orde r Schedule Pulmonary function testing PFT Routine Pulmonary sarcoidosis ([facility]) Dyspnea on exertion Expected: 09/12/2025, Expires: 03/16/2026 Comprehensive Metabolic Panel, Plasma Lab Routine Pulmonary sarcoidosis (CMS/HCC) Expected: 09/12/2025, Expires: 03/15/2026 CBC and Differential Lab Routine Pulmonary sarcoidosis ([facility]) Expected: 09/12/2025, Expires: 03/15/2026 Scheduled [...] documented as of this encounter Care Teams Patient Office Rep Relationship Specialty Start Date End Date Eric Maria MD [address] [place] [address] PCP - General 11/04/20 documented as of this encounter
--- OUTSIDE RECORDS SUMMARY | 2024-09-12 09:30 | XMS_ITS | Encounter Summary ---
Author Organization [facility] Address [address] [place] [address] Care Team Providers Care Ventilation Equipment Tender Name Role Phone Eric Maria MD Primary Care Provider [phone]- [phone] Reason for Referral * Consultation (Routine) - Authorized Specialty Diagnoses / Procedures Referred By Manuela munoz Referred To Contact Diagnoses Pulmonary sarcoidosis (CMS/HCC) Dyspnea on exertion Jeff Longoria MD [address] [place] [address] Phone: tel: fax: Referral ID Status Reason Start Date Expiration Date V isits Requested Visits Authorized [id number] Authorized 09/12/2024 03/14/2026 1 1 Reason for Visit * Reason Comments Sarcoidosis Encounter Details Date Type Department Care Team (Late st Contact Info) Description 09/12/2024 9:30 AM EDT [facility] [address], [address] [place] [address] Jeff Longoria MD [address] [place] [address] Pulmonary sarcoidosis (CMS/HCC) (Primary Dx); [...] time in the past 12 m [facility], were you homeless or living [...] PMHx of Sarcoidosis, CAD, CVA x2, s/p DE x3, pacemaker, prostate cancer The patient was [...] or progressive pulmonary parenchymal diseases and 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 Otherwise, [...] of coffee-ground emesis. EGD at [facility] revealed multiplenon-bleeding ulcerations,. Seen today in [...] He had questions about going out [facility] and risk of infections. We discussed immunization [...] of Pulmonary, Critical Care and Sleep Medicine [facility] [1] Past Medical History: Diagnosis Date CAD (coronary artery disease) Carotid artery occlusion 2 heart attacks Cataract post replacement CVA (cerebral vascular accident) ([facility]/HCC) Depression DM (diabetes mellitus) type II, controlled, with peripheral vascular disorder ([facility]/HCC) Erectile dysfunction Glaucoma Headache Headache, tension-type Heart [...] pulmonary nodules, and splenic granulomas Shingles Stroke (CMS/[facility]) 3x Tremor both hands Vision loss macular degenration and mild glaucaoma Weakness of limb [2] Past Surgical History: Procedure Laterality Date CARDIAC PACEMAKER PLACEMENT N/A Pacemaker Placement from [employer] CARDIAC STENT Right 09/27/2023 CAROTID STENT CATARACT EXTRACTION N/A Cataract surgery from [employer] CORONARY ANGIOPLASTY WITH STENT PLACEMENT N/A Cardiac catheterization with stent placement from [employer] [3] Current Outpatient Medications Medication Sig Dispense Refill acetaminophen (Tylenol) 325 MG tablet Take 2 tablets by mouth every 4 hours as needed for fever (for temperature > 38.5). Under [place] law, monthly prescriptions (30 days) can be [...] Description 10/24/2024 10:45 AM EDT Office Visit [facility] Medicine Specialties [address] [place] [address] Jennifer Barber, LIONEL, DNP [address] [place] [address] 11/21/2024 9:30 AM EDT Office Visit [facility] [address], [address] [place] [address] Chu Null MD [address] [place] [address] 09/11/2025 10:00 AM EDT Ancillary Procedure [facility] Medicine [facility] [address], [address] [place] [address] 09/11/2025 11:00 AM EDT Office Visit [facility] Medicine [facility] [address], [address] [place] [address] Jeff Longoria MD [address] [place] [id number] Scheduled Orders Name Type Priority Associated Diagnoses Orde r Schedule Pulmonary function testing PFT Routine Pulmonary sarcoidosis ([facility]) Dyspnea on exertion Expected: 09/12/2025, Expires: 03/16/2026 Comprehensive Metabolic Panel, Plasma Lab Routine Pulmonary sarcoidosis (CMS/HCC) Expected: 09/12/2025, Expires: 03/15/2026 CBC and Differential Lab Routine Pulmonary sarcoidosis ([facility]) Expected: 09/12/2025, Expires: 03/15/2026 Scheduled Referrals Name [...] documented as of this encounter Care Teams Ventilation Equipment Tender Relationship Specialty Start Date End Date Eric Maria MD [address] [place] [address] PCP - General 11/04/20 documented as of this encounter
[2024-10-06] VITALS (12 sets, daily range): BP systolic 138–174; BP diastolic 57–88; PULSE 61–95; RESP 16–33; TEMP 36.7–37.1; O2SAT 92–98; BMI 21.4; BMI 23.8
--- NOTE | 2024-10-06 09:14 | ECG_ITS ---
APPROVED REPORT Exam: Resting ECG HR:65 bpm ECG Measurements Heart Rate 65 AXES QRSd 165 QRS 228 QT 463 T 40 QTc 474 Conclusion ELECTRONIC VENTRICULAR PACEMAKER ABNORMAL RHYTHM ECG UNCONFIRMED REPORT Electronically signed by : CHAPARRO HURD, 10/08/2024 04:21:37
--- NOTE | 2024-10-06 09:22 | HMH.EDGENADL ---
Discharge Plan Disposition Patient Disposition: Admitted Condition: Fair Clinical Impressions Clinical Impression: Pneumonia, Acute exacerbation of CHF (congestive heart failure) Anemia Qualifiers: Anemia type: iron deficiency Iron deficiency anemia type: chronic blood loss Qualified Code(s): D50.0 - Iron deficiency anemia secondary to blood loss (chronic) Discharge ED Provider: Sandra Garcia Adult HPI General Chief complaint: Chest Pain Stated complaint: chest pain Time Seen by Provider: 10/06/24 09:17 History of Present Illness HPI narrative: Patient is a 74-year-old gentleman with a past medical history of coronary artery disease, stents in place, on Xarelto and Plavix who presented to the emergency department with shortness of breath and chest pain. Patient states that he has had intermittent chest pain since yesterday currently still having mild midsternal chest pain that does not radiate. Patient is also reporting shortness of breath since yesterday worse with lying flat. Patient states that he has had a little dry cough since last week, not had a productive cough, not had any fevers. Patient states that he is having some left upper extremity swelling that is been present for the last 2 days. Patient denies any lower extremity swelling. Patient denies any history of heart failure currently is not on any Lasix or other diuretics. Patient denies any abdominal pain nausea vomiting or diarrhea. Patient denies any headache, numbness weakness or other neurologic symptoms. Patient states that he has been using his albuterol inhaler multiple times since yesterday without significant relief. Patient states that he does not have COPD, is not a smoker does not have asthma and is unsure why he was prescribed an albuterol inhaler in the first place. Patient denies any history of blood clots. Related Data Home Medications ?Medication ?Instructions ?Recorded ?Confirmed cyanocobalamin (vitamin B-12) 1,000 mcg PO DAILY Supplement 06/09/22 10/06/24 1,000 mcg tablet latanoprost 0.005 % eye drops 1 drp Eye-Both HS 09/20/23 10/06/24 carbidopa 25 mg-levodopa 100 mg 1 tab PO TID 02/07/24 10/06/24 tablet acetaminophen 500 mg tablet 1,000 mg PO .THREE TIMES WEEKLY 10/06/24 10/06/24 bicalutamide 50 mg tablet 50 mg PO DAILY 10/06/24 10/06/24 insulin glargine 100 unit/mL (3 25 unit SQ DAILY 10/06/24 10/06/24 mL) subcutaneous pen (Lantus Solostar U-100 Insulin) melatonin 3 mg tablet 3 mg PO HS 10/06/24 10/06/24 metoprolol tartrate 25 mg tablet 25 mg PO BID 10/06/24 10/06/24 mirtazapine 15 mg tablet 7.5 mg PO HS 10/06/24 10/06/24 nitroglycerin 0.4 mg sublingual 0.4 mg sublingual Q5MINP PRN Chest 10/06/24 10/06/24 tablet Pain pantoprazole 40 mg tablet,delayed 40 mg PO BID 10/06/24 10/06/24 release potassium chloride 20 mEq 20 meq PO DAILY 10/06/24 10/06/24 tablet,extended release(part/cryst) rivaroxaban 20 mg tablet (Xarelto) 20 mg PO QPMWITHMEAL 10/06/24 10/06/24 sucralfate 100 mg/mL oral 10 ml PO QID 10/06/24 10/06/24 suspension Previous Rx's ?Medication ?Instructions ?Recorded clopidogrel 75 mg tablet 75 mg PO DAILY #90 tabs 10/18/23 Allergies Allergy/AdvReac Type Severity Reaction Status Date / Time No Known Allergies Allergy Verified 05/14/24 10:01 [facility] Disclaimer: The information contained in this section may have been updated after the patient was seen, as this information can be updated by other users. Medical History (Updated 10/08/24 @ 11:35 by Luz Elena Concepcion APRN) Pleural effusion, bilateral Acute respiratory failure with hypoxia Chronic HFrEF (heart failure with reduced ejection fraction) Abnormal cardiovascular stress test Atypical angina Pericardial effusion Prostate cancer Displacement of atrial pacemaker leads Cardiomyopathy Typical angina SOB (shortness of breath) HTN (hypertension) CAD (coronary artery disease) ST elevation myocardial infarction (STEMI) Cerebrovascular accident Surgical History History of cardiac catheterization Family History Other Family history of cancer Social History Smoking Status: Never smoker second hand exposure: No alcohol intake: current substance use type: denies use current occupational status: retired Travel in the last 8 weeks?: Inside the [place] household members: spouse housing: house current occupational exposures/hazards: No caffeine: Yes Have you lived/traveled outside US in past 30 days?: No Contact w/someone who lives/traveled outside US past 30 days?: No Exposure to someone with infectious disease in past 14 days?: No Do you have a fever (greater than 100.4 F or 38 C)?: No Have you tested positive for COVID-19?: No Exposed to someone with COVID-19 in past 14 days?: No Do you have a sore throat?: No Do you have a cough?: No Do you have any weakness?: Yes Do you have any diarrhea?: No Are you experiencing any unusual bleeding?: No Do you have any muscle aches/pain?: Yes Do you have any abdominal pain?: No Are you experiencing loss of taste or smell?: No Other Medical History Have you received the Flu Vaccine for this season: No Have you received the Pneumonia Vaccine: No ROS Obtained: Yes All systems reviewed & no additional complaints except as documented and Yes Systems reviewed as appropriate & no additional complaints except as documented Physical Exam General General appearance: alert and in no apparent distress Head Head exam: atraumatic, normocephalic and normal inspection Eye Eye exam: Present normal appearance, PERRL and EOMI; Absent scleral icterus ENT ENT exam: Present normal exam and normal external ear exam Neck Neck exam: Present normal inspection and full ROM Chest Chest inspection: Present normal inspection and symmetric chest wall rise Respiratory Respiratory exam: Present normal lung sounds bilaterally and other (Rales bilaterally); Absent respiratory distress or wheezes Cardiovascular Cardiovascular exam: Present regular rate, normal rhythm and normal heart sounds Abdominal Exam Abdominal exam: Present soft and distention; Absent tenderness, guarding or rebound Extremities Exam Extremities exam: Present normal inspection, full ROM and other (Left upper extremity with mild edema and swelling in comparison to the right) Back Exam Back exam: Present normal inspection and full ROM Neurological Exam Neurological exam: Present alert and oriented X3 Psychiatric Psychiatric exam: Present normal affect and normal mood Skin Skin exam: Present warm, dry and other (Mild 1+ edema of the bilateral lower extremities) Medical Decision Making Medical Records Screening: Per USPSTF and CDC recommendations, given the prevalence of disease in our region, it is our hospital?s policy to screen for HIV and viral Hepatitis for all patients aged 18 and over and those with ongoing risk factors. Quang Inquiry Pt receiving controlled substance: No Vital Signs: 10/06/24 09:15 10/06/24 09:18 10/06/24 10:00 Temperature 98.2 F Temperature Source Oral Pulse Rate 66 66 Pulse Rate [Right Radial] 66 Respiratory Rate 16 19 26 H Blood Pressure 169/66 H 174/57 H Blood Pressure [Right Radial Artery] 169/66 H Blood Pressure Mean [Right Radial Artery] 100 Blood Pressure Source [Right Radial Artery] Automatic Cuff Blood Pressure Position [Right Radial Artery] Sitting 02 Sat by Pulse Oximetry 96 94 L 95 Oxygen Delivery Method Room Air 10/06/24 10:06 10/06/24 10:45 10/06/24 11:00 Temperature Temperature Source Pulse Rate 67 63 61 Pulse Rate [Right Radial] Respiratory Rate 25 H 33 H 26 H Blood Pressure 172/72 H 167/73 H 165/72 H Blood Pressure [Right Radial Artery] Blood Pressure Mean [Right Radial Artery] Blood Pressure Source [Right Radial Artery] Blood Pressure Position [Right Radial Artery] 02 Sat by Pulse Oximetry 97 95 93 L Oxygen Delivery Method 10/06/24 11:30 10/06/24 11:33 10/06/24 12:00 Temperature Temperature Source Pulse Rate 62 62 Pulse Rate [Right Radial] Respiratory Rate 32 H 29 H Blood Pressure 170/73 H 165/72 H Blood Pressure [Right Radial Artery] Blood Pressure Mean [Right Radial Artery] Blood Pressure Source [Right Radial Artery] Blood Pressure Position [Right Radial Artery] 02 Sat by Pulse Oximetry 93 L 93 L Oxygen Delivery Method Room Air Lab Data Lab results reviewed: Yes I reviewed the patient's lab results. Lab Results 10/06/24 09:34: WBC 2.9 L, RBC 3.60 L, Hgb 8.7 L, Hct 28.8 L, MCV 80.0, MCH 24.2 L, MCHC 30.2 L, RDW 16.2, Plt Count 123 L, MPV 8.9, Neut % (Auto) 65.7, Lymph % (Auto) 19.7, [place] % (Auto) 10.4 H, Eos % (Auto) 3.5, Baso % (Auto) 0.7, Neut # (Auto) 1.9, Lymph # (Auto) 0.6 L, [place] # (Auto) 0.3, Eos # (Auto) 0.1, Baso # (Auto) 0.0, PT 18.6 H, INR 1.75 H, D-Dimer 1.11 H, Sodium 140, Potassium 3.2 L, Chloride 108 H, Carbon Dioxide 27, Anion Gap 8.2, BUN 9, Creatinine 0.80, Estimated Creat Clear 59, Estimated GFR 94, Est GFR ( Amer) 114, Glucose 206 H, Calcium 9.5, Total Bilirubin 0.5, AST 21, ALT 9 L, Alkaline Phosphatase 123, Troponin I < 0.01, NT-Pro-B Natriuret Pep 5080 H, Total Protein 5.7 L, Albumin 3.5, Globulin 2.2, Albumin/Globulin Ratio 1.6, HCV Ab ANDRES w/Rflx PCR Qn Negative, HIV Ag/Ab Combo Qual Negative 10/06/24 10:23: WBC 2.9 L, RBC 3.53 L, Hgb 8.3 L, Hct 28.3 L, MCV 80.2, MCH 23.5 L, MCHC 29.3 L, RDW 16.2, Plt Count 135 L, MPV 9.0, Neut % (Auto) 65.7, Lymph % (Auto) 20.1, [place] % (Auto) 9.5 H, Eos % (Auto) 3.7, Baso % (Auto) 0.7, Neut # (Auto) 1.9, Lymph # (Auto) 0.6 L, [place] # (Auto) 0.3, Eos # (Auto) 0.1, Baso # (Auto) 0.0 10/08/24 06:12 10/08/24 06:12 Orders (Tests/Meds): ED MEDICATIONS Generic Name Dose Route Start Last Admin Trade Name Freq PRN Reason Stop Dose Admin Acetaminophen 650 mg 10/06/24 12:18 Acetaminophen 325mg Tab PO 11/05/24 12:17 Q4HP PRN Fever or Mild Pain (1-3) Albuterol/Ipratropium 3 ml 10/07/24 07:15 10/07/24 09:28 Ipratropium/Albuterol 3 Ml Neb IH 11/06/24 07:14 3 ml Q6HP PRN Administration Shortness Of Breath Atorvastatin Calcium 80 mg 10/08/24 21:00 Atorvastatin 40mg Tablet PO 11/07/24 20:59 HS WALTER Carbidopa/Levodopa 1 each 10/06/24 21:00 10/08/24 13:05 Carbidopa/Levodopa 25/100mg Tablet PO 11/05/24 20:59 1 each TID WALTER Administration Dapagliflozin 10 mg 10/07/24 15:15 10/08/24 09:27 Dapagliflozin Propanediol 10 Mg Tablet PO 11/06/24 15:14 10 mg DAILY WALTER Administration Furosemide 40 mg 10/07/24 09:00 10/08/24 16:17 Furosemide 40mg/4ml Vial IV 11/06/24 08:59 40 mg BIDL WALTER Administration Azithromycin 500 mg/ Sodium 250 mls @ 250 mls/hr 10/06/24 11:30 10/08/24 13:03 Chloride IV 10/16/24 11:29 250 mls/hr Q24H WALTER Administration Ceftriaxone Sodium 1 gm/ 50 mls @ 100 mls/hr 10/07/24 20:00 10/07/24 20:26 Sodium Chloride IV 10/17/24 19:59 100 mls/hr Q24H WALTER Administration Iron Sucrose 200 mg/ Sodium 110 mls @ 220 mls/hr 10/09/24 09:00 Chloride IV 10/09/24 09:29 ONCE ONE Insulin Glargine 15 unit 10/09/24 09:00 Insulin Glargine 100 Units/Ml 3ml Flexpen SUBCUT 11/08/24 08:59 DAILY WALTER Insulin Human Lispro 0 unit 10/06/24 21:00 10/08/24 17:03 Humalog 100 Units/Ml 10ml Vial (Ssi) SUBCUT 11/05/24 20:59 Not Given ACHS WALTER Protocol Melatonin 5 mg 10/06/24 21:00 10/07/24 20:27 Melatonin 5mg Tablet PO 11/05/24 20:59 5 mg HS WALTER Administration Metoprolol Tartrate 25 mg 10/06/24 21:00 10/08/24 09:27 Metoprolol Tartrate 25mg Tablet PO 11/05/24 20:59 25 mg BID WALTER Administration Metoprolol Tartrate 5 mg 10/08/24 17:53 10/08/24 18:10 Metoprolol Tartrate 5mg/5ml Vial IV 11/07/24 17:52 5 mg Q6HP PRN Administration HR >110 Mirtazapine 7.5 mg 10/06/24 21:00 10/07/24 20:27 Mirtazapine 15 Mg Tablet PO 11/05/24 20:59 7.5 mg HS WALTER Administration Morphine Sulfate 2 mg 10/06/24 12:18 Morphine 2mg/Ml Syringe IV 11/05/24 12:17 Q2HP PRN Severe Pain (7-10) Nitroglycerin 0.4 mg 10/06/24 16:33 Nitroglycerin 0.4mg Sl Tablet SL 11/05/24 16:32 Q5MINP PRN Chest Pain Ondansetron HCl 4 mg 10/06/24 12:18 Ondansetron 4mg/2ml Vial IV 11/05/24 12:17 Q8HP PRN Nausea Pantoprazole Sodium 40 mg 10/06/24 21:00 10/08/24 09:28 Pantoprazole 40mg Vial IV 11/05/24 20:59 40 mg BID WALTER Administration Sodium Chloride 10 ml 10/06/24 19:58 Sodium Chloride 0.9% 10ml Vial IV 11/05/24 19:57 NEEDED PRN dilute protonix Sodium Chloride 10 ml 10/07/24 07:34 Sodium Chloride 0.9% 10ml Flush Syringe IV 11/06/24 07:33 NEEDED PRN Maintain IV Site Sodium Chloride 3 ml 10/07/24 08:43 10/08/24 17:15 Sodium Chloride 3% 15ml [facility] 11/06/24 08:42 3 ml ONCE PRN Administration [employer] Spironolactone 25 mg 10/07/24 15:15 10/08/24 09:27 Spironolactone 25mg Tablet PO 11/06/24 15:14 25 mg DAILY WALTER Administration Sucralfate 1 gm 10/06/24 17:00 10/08/24 16:17 Sucralfate 1gm/10ml Susp Udc PO 11/05/24 16:59 1 gm QID WALTER Administration Discontinued Medications Generic Name Dose Route Start Last Admin Trade Name Freq PRN Reason Stop Dose Admin Albuterol/Ipratropium 3 ml 10/06/24 09:31 10/06/24 09:54 Ipratropium/Albuterol 3 Ml [facility] 10/06/24 09:32 3 ml ONCE ONE Administration Furosemide 40 mg 10/06/24 11:24 10/06/24 11:57 Furosemide 40mg/4ml Vial IV 10/06/24 11:25 40 mg ONCE ONE Administration Furosemide 20 mg 10/06/24 16:45 10/07/24 05:54 Furosemide 20 Mg/2 Ml Vial IV 11/05/24 16:44 20 mg Q12H WALTER Administration Furosemide 20 mg 10/07/24 07:09 Furosemide 20 Mg/2 Ml Vial IV 11/05/24 16:44 BIDL WALTER Ceftriaxone Sodium 2 gm/ 100 mls @ 200 mls/hr 10/06/24 11:30 10/06/24 11:43 Sodium Chloride IV 10/16/24 11:29 200 mls/hr Q24H WALTER Administration Pantoprazole Sodium 80 mg/ 100 mls @ 100 mls/hr 10/06/24 11:24 10/06/24 11:57 Sodium Chloride IV 10/06/24 12:23 100 mls/hr ONCE ONE Administration Iron Sucrose 200 mg/ Sodium 110 mls @ 220 mls/hr 10/07/24 11:00 10/07/24 11:33 Chloride IV 10/07/24 11:29 Not Given ONCE ONE Insulin Glargine 25 unit 10/07/24 09:00 10/08/24 09:55 Insulin Glargine 100 Units/Ml 3ml Flexpen SUBCUT 11/06/24 08:59 25 units DAILY WALTER Administration Iopamidol 70 ml 10/06/24 10:34 10/06/24 10:35 Iopamidol-370 (76%);100ml Bottle IV 10/06/24 10:35 70 ml ONCE ONE Administration Non-Formulary Medication 50 mg 10/07/24 09:00 10/08/24 11:31 Bicalutamide PO 11/06/24 08:59 Not Given DAILY WALTER Potassium Chloride 40 meq 10/07/24 10:00 10/07/24 18:27 Potassium Chloride 20meq Tab PO 10/07/24 18:01 40 meq Q4H WALTER Administration Sodium Chloride 10 ml 10/06/24 10:34 10/06/24 10:35 Sodium Chloride 0.9% 10ml Syr (Rad Only) IV 10/06/24 10:35 10 ml ONCE ONE Administration Sodium Chloride 50 ml 10/06/24 10:34 10/06/24 10:35 0.9 % Sodium Chloride 50 Ml Vial IV 10/06/24 10:35 50 ml ONCE ONE Administration ORDERS Category Date Time Status CT angio chest PE protocol Stat Cat Scan 10/06/24 10:10 Completed CXR --portable [XR chest portable] Stat Exams 10/06/24 09:31 Completed BNP [NT Pro Brain Natriuretic Pep.] Stat Lab 10/06/24 09:34 Completed CBC w/Auto Diff [Complete Blood Count Auto Diff] Stat Lab 10/06/24 09:34 Completed CBC w/Auto Diff [Complete Blood Count Auto Diff] Stat Lab 10/06/24 10:23 Completed CMP [Comprehensive Metabolic Panel] Stat Lab 10/06/24 09:34 Completed D-Dimer Stat Lab 10/06/24 09:34 Completed HIV Combo Stat Lab 10/06/24 09:34 Completed Hepatitis C Ab Qual. W/ RFX Stat Lab 10/06/24 09:34 Completed Occult Blood,Stool Stat Lab 10/06/24 16:28 Completed PT INR [Prothrombin Time INR] Stat Lab 10/06/24 09:34 Completed Trop I [Troponin I] Stat Lab 10/06/24 09:34 Completed Troponin I Q3H Lab 10/06/24 14:05 Completed Troponin I Q3H Lab 10/06/24 16:50 Completed Blood Culture Stat Micro 10/06/24 10:23 Results ECG Data Tracing #1: I reviewed this ECG and interpreted as documented below: EKG sinus rhythm at 65 beats per minute, ventricular paced, no acute ST or T wave changes concerning for ischemia. Medical Decision Narrative: Patient is a 74-year-old male who presented to the emergency department with shortness of breath. On arrival, patient was hemodynamically stable with unremarkable vital signs. Differential included but not limited to: Viral syndrome, pneumonia, pulmonary embolism, ACS/PA, CHF exacerbation, amongst others. Patient's labs were reviewed and interpreted by myself, CBC showed no leukocytosis, hemoglobin was stable. Patient's chemistry was unremarkable. EKG was reviewed and interpreted by myself and showed normal sinus rhythm without acute ST or T wave changes concerning for ischemia Chest x-ray was reviewed and interpreted by myself and showed left-sided pleural effusion, bilateral opacities concerning for possible infectious etiology. CT PE was reviewed and interpreted by myself which showed concern for bilateral pleural effusions and possible opacities. Patient was started on community-acquired pneumonia coverage including Rocephin and azithromycin. Given patient's large pleural effusions, patient was given IV Lasix in the emergency department. Patient's hemoglobin was significantly dropped from 8 from 13, patient denied any new bleeding however does have a history of GI bleed. Patient was given Protonix in the emergency department. At this time given patient's significant shortness of breath causing him to have significant troubles doing his activities of daily living I felt the patient warranted admission. I discussed the case with hospital medicine who ultimately admitted the patient for further evaluation and workup. Critical Care Critical Care Time Critical Care Time: No
--- OUTSIDE RECORDS SUMMARY | 2024-10-06 09:22 | XMS_ITS | Encounter Summary ---
Author Organization [facility] Address [address] [place] [address] Care Team Providers Care Manager Terminal Name Role Phone Eric Maria MD Primary Care Provider Encounter Details Date Type Department Care Team (Late st Contact Info) Description 05/31/2024 Orders Only External Location [address] [place] [address] Provider, External Social History Tobacco Use Types Packs/Day Years Used Date Smoking Tobacco: Never Passive Smoke Exposure: Current Smokeless Tobacco: Current Chew Alcohol Use Standard Drinks/Week Comments Yes 10 (1 standard drink = 0.6 oz pure alcohol) Beer once in a while. I've found it helps with headaches. PHQ-2 Answer Date Recorded Patient Health Questionnaire-2 Score 0 10/24/2023 Sex and Gender Information Value Date Recorded Sex Assigned at Male 12/02/2022 10:35 AM EDT Legal Sex Male 7:31 PM EDT Gender Identity Male 12/02/2022 10:35 AM EDT Sexual Orientation Straight 12/02/2022 10 :35 AM EDT documented as of this encounter Plan of Treatment Upcoming Encounters Date Type Department Care Team (Late st Contact Info) Description 10/24/2024 10:45 AM EDT [facility] [address], [address] [place] [address] Jennifer Barber, GUM SCORING MACHINE OPERATOR, DNP [address] [place] [phone] 11/21/2024 9:30 AM EDT Office Visit [facility] [address], [address] [place] [address] Chu Null MD [address] [place] [address] 09/11/2025 10:00 AM EDT Ancillary Procedure [facility] Medicine Specialties [address], [address] [place] [address] 09/11/2025 11:00 AM EDT Office Visit [facility] [address] [place] [address] Jeff Longoria MD [address] [place] [address] documented as of this encounter Procedures Procedure Name Priority Date/Time Associated Diagnosis Comments XR MSK OUTSIDE IMAGES 05/31/2024 12:01 PM EDT documented in this encounter Results * XR MSK OUTSIDE IMAGES (05/31/2024 12:01 PM EDT) Anatomical Region Laterality Modality Radiographic Melly ging 05/31/2024 12:0 1 PM EDT External Provider IMG XR PROCEDURES Final Result documented in this encounter Visit Diagnoses Not on filedocumented in this encounter Additional Health Concerns Infection Onset Date Last Indicated Resolved Time COVID-19 Rule-Out 06/23/2024 06/23/2024 06/24/2024 8:12 AM EDT Assessment Noted Time A fall risk assessment has been complete d for the patient 11/03/2023 10:27 AM EDT A Body Mass Index follow-up plan has been documented for the patient 11/04/2023 2:20 PM EDT documented as of this encounter Care Teams Manager Terminal Relationship Specialty Start Date End Date Eric Maria MD [address] [place] [address] PCP - General 11/04/20 documented as of this encounter
--- OUTSIDE RECORDS SUMMARY | 2024-10-06 09:22 | XMS_ITS | Encounter Summary ---
Author Organization [employer] ([place], [place], [place], [place]) Address [address] [place] [address] Care Team Providers Care Special Services Coordinator Name Role Phone Unavailable Primary Care Provider Unavailabl e Encounter Details Date Type Department Care Team (Late st Contact Info) Description 01/11/2019 Transcribed Document [facility] Family Medicine [address] [place] [address] ProviderJose MD [address] [place] [address] Social History Tobacco Use Types Packs/Day Years Used Date Smoking Tobacco: Never Assessed Sex and Gender Information Value Date Recorded Sex Assigned at Not on file Legal Sex Male 2:31 PM CDT Gender Identity Not on file Sexual Orientation Not on file documented as of this encounter Miscellaneous Notes * Cerner Conversion Note - Historical ProviderMD - 01/11/2019 3:23 PM CALENDERER Stroke/Warfarin Instructions Entered On: 01/11/2019 15:23 EST Performed On: 01/11/2019 15:23 EST by Adeilne Vasquez RN Stroke/Warfarin Instructions Stroke/TIA Discharge Ins : N/A Warfarin Discharge Ins : N/A Adeline Vasquez RN - 01/11/2019 15:23 EST Electronically signed by Shay Bernardo Conversion Forest Fire Prevention Manager Cerner at 06/23/2022 11:58 AM CDT documented in this encounter Plan of Treatment Not on file documented as of this encounter Visit Diagnoses Not on filedocumented in this encounter
--- OUTSIDE RECORDS SUMMARY | 2024-10-06 09:22 | XMS_ITS | Encounter Summary ---
Author Organization [employer] ([place], [place], [place], [place]) Address [address] [place] [address] Care Team Providers Care Fiber Technician Name Role Phone Unavailable Primary Care Provider Unavailabl e Encounter Details Date Type Department Care Team (Late st Contact Info) Description 01/10/2019 Transcribed Document [facility] Family Medicine [address] [place] [address] ProviderJose MD [address] [place] [address] Social History Tobacco Use Types Packs/Day Years Used Date Smoking Tobacco: Never Assessed Sex and Gender Information Value Date Recorded Sex Assigned at Not on file Legal Sex Male 2:31 PM CDT Gender Identity Not on file Sexual Orientation Not on file documented as of this encounter Miscellaneous Notes * Cerner Conversion Note - Historical ProviderMD - 01/10/2019 9:24 AM LOCKSMITH APPRENTICE Therapy Screen, PT Entered On: 01/10/2019 10:31 EST Performed On: 01/10/2019 9:24 EST by HECTOR GONZALEZ, PT Therapy Screen, PT Medical Chart Reviewed : Yes Person Providing Information : Family, Nurse, Patient Screen Completed : Yes Recommendation for Evaluation, PT : None Recommendations Upon Discharge : None Additional Therapy Screen Comment : Patient denies need for acute skilled PT services. Reports he's back to his baseline with mobility - up ad faraz/Independent. Just c/o having to drag IV pole around with him. HECTOR GONZALEZ, PT - 01/10/2019 10:24 EST documented in this encounter Plan of Treatment Not on file documented as of this encounter Visit Diagnoses Not on filedocumented in this encounter
--- OUTSIDE RECORDS SUMMARY | 2024-10-06 09:22 | XMS_ITS | Encounter Summary ---
Author Organization [employer] ([place], [place], [place], [place]) Address [address] [place] [address] Care Team Providers Care Plugger Name Role Phone Unavailable Primary Care Provider Unavailabl e Encounter Details Date Type Department Care Team (Late st Contact Info) Description 01/09/2019 Transcribed Document [facility] [address] [place] [address] ProviderJose MD [address] [place] [id number] Social History Tobacco Use Types Packs/Day Years Used Date Smoking Tobacco: Never Assessed Sex and Gender Information Value Date Recorded Sex Assigned at Not on file Legal Sex Male 2:31 PM CDT Gender Identity Not on file Sexual Orientation Not on file documented as of this encounter Miscellaneous Notes * Cerner Conversion Note - Jose Stokes MD - 01/09/2019 4:30 PM COOKING APPLIANCE REPAIR TECHNICIAN Patient: KINGSTON POLLOCK Age: 68 years Sex: Male : 1950 Associated Diagnoses: None Author: GERARDO RICHARDSON MD-CAR Chief Complaint Chest pain History of Present Illness 68-year-old male with known history of coronary artery disease, questionable history of myocardial infarction, the patient had other risk factors for coronary artery disease includes age, gender, hypertension, diabetes mellitus type 2, hypercholesterolemia. The patient also has atrial fibrillation and multiple strokes in the past, he tells me that he developed severe retrosternal chest discomfort radiating to upper back and both arms associated with shortness of breath, this started at rest and lasted till he went to the emergency room, it but await prior to getting into the emergency room and then restarted again, the patient was given nitroglycerin and aspirin, he was started on heparin drip, the patient is on Xarelto, the patient denies any modifying factors, the patient states that the chest discomfort got better, his troponins were mildly elevated and he was diagnosed with non-ST elevation GA and transferred here. 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 Review of Systems Constitutional: No fever, No chills, No sweats. Eye: No blurring, No double vision. Ear/Nose/Mouth/Throat: No nasal congestion, No sore throat. Respiratory: Shortness of breath, No cough, No sputum production. Cardiovascular: No palpitations, No bradycardia, No tachycardia, No peripheral edema, No syncope Chest pain: Midsternal. Gastrointestinal: No nausea, No vomiting, No diarrhea. Genitourinary: No dysuria, No hematuria. Hematology/Lymphatics: No bruising tendency, No bleeding tendency. Endocrine: No excessive thirst, No cold intolerance. Immunologic: Not immunocompromised, No recurrent fevers. Musculoskeletal: No neck pain, No joint pain, No muscle pain. Integumentary: No rash, No pruritus, No breakdown. Neurologic: No abnormal balance, No confusion. Psychiatric: No anxiety, No depression. Health Status Allergies: Allergic Reactions (Selected) No Known Allergies, Allergies (1) Active Reaction No Known Allergies None Documented Current medications: (Selected) Documented Medications Documented Levemir FlexPen 100 units/mL subcutaneous solution: 30 Units, SubCutaneous, At Bedtime Pravachol 20 mg oral tablet: 1 Tab, Oral, At Bedtime aspirin: 325 mg, Oral, Daily glipiZIDE 10 mg oral tablet, extended release: 1 Tab, Oral, BIDAC metformin 1000 mg oral tablet: 1 Tab, Oral, BID, 180 Tab, No qualifying data available Problem list: Medical CVA - Cerebrovascular accident / SNOMED CT 960595929 / Confirmed Diabetes mellitus / SNOMED CT 538320005 / Confirmed Hyperlipidemia / SNOMED CT 32672213 / Confirmed Hypertension / SNOMED CT 81912595 / Confirmed, Active Problems (4) CVA - Cerebrovascular accident Diabetes mellitus Hyperlipidemia Hypertension Histories Past Medical History: No active or resolved past medical history items have been selected or recorded., As noted above Coronary artery disease never had a stent. Family History: No family history items have been selected or recorded., Patient does not know his family history Procedure history: Pacemaker ([id number]). Social History Social & Psychosocial Habits Alcohol 01/01/2014 Alcohol Use in Last Twelve Months Yes Date/Time of Last Drink less than 6 beers a year Home/Environment 01/01/2014 Living situation: Home/Independent Nutrition/Health 01/01/2014 Caffeine intake amount: moderate Substance Abuse 01/01/2014 Recreational Drug Use History No Recreational Drug Use Last 12 Months No Tobacco 12/31/2013 Smoking Status Chew . Physical Examination VS/Measurements No qualifying data available General: Alert and oriented, No acute distress. Eye: Pupils are equal, round and reactive to light, Normal conjunctiva. HENT: Normocephalic, Normal hearing, Oral mucosa is moist. Neck: Supple, Non-tender, No carotid bruit, No jugular venous distention. Respiratory: Lungs are clear to auscultation, Respirations are non-labored, Breath sounds are equal, Symmetrical chest wall expansion. Cardiovascular: Normal rate, Regular rhythm, No murmur, No gallop, Good pulses equal in all extremities, Normal peripheral perfusion, No edema. Gastrointestinal: Soft, Non-tender, Non-distended, Normal bowel sounds. Lymphatics: No lymphadenopathy neck, axilla, groin. Musculoskeletal: Normal range of motion, Normal strength. Integumentary: Warm, Dry, [place]. Neurologic: Alert, Oriented. Cognition and Speech: Oriented, Speech clear and coherent. Psychiatric: Cooperative, Appropriate mood & affect. Review / Management Results review: No qualifying data available. Impression and Plan 1. Non-ST elevation myocardial infarction: I had a very lengthy discussion with the patient about his anginal symptoms, Abnormal CT Scan Revealing Calcification of the Coronaries, Positive Troponin. I've Also Discussed with Him about the Interaction of Dual Antiplatelet Therapy with Oral Anticoagulant and Increased Risk of Bleeding, the patient tells me that he has some blood oozing when he does sex. He fully understands the interaction of antiplatelet therapy with oral anticoagulant now, have explained him about increased risk of major and minor bleeding, the patient is agreeable to proceed with cardiac catheterization understanding fully the procedure and risk, we have discussed the Informed Procedure The risks and benefits have been explained to the patient in detail including but not limited to bleeding, infection, damage to the vessel or nerve, dye allergy, stent restenosis, thrombosis, loss of limb, arrhythmia nephrotoxicity, possible need for emergent CABG/blood transfusion, GA, stroke or . I have discussed risks and benefits of drug eluting vs. not drug eluting stents and the necessity of taking dual anti-platelet therapy. Patient understands, questions were answered and they wish to proceed. Will start patient on Plavix. Will do cardiac catheterization the morning has discussed with the patient since he had Xarelto last night. 2. atrial fibrillation with controlled ventricular response: The patient Xarelto will be placed on hold and will keep him on IV heparin drip 3. Diabetes mellitus type 2: 4. Hypertension benign essential: Continue home medication documented in this encounter Plan of Treatment Not on file documented as of this encounter Visit Diagnoses Not on filedocumented in this encounter
--- OUTSIDE RECORDS SUMMARY | 2024-10-06 09:22 | XMS_ITS | Encounter Summary ---
Author Organization [facility] Address [address] [place] [address] Care Team Providers Care Optical Instrument Specialist Name Role Phone Eric Maria MD Primary Care Provider [phone] Reason for Visit * Reason Comments Med Refill Encounter Details Date Type Department Care Team (Late st Contact Info) Description 09/13/2024 [facility]ill [place] [facility] [address], [address] [place] [address] Chris Stratton MBBS [address] [place] [address] Social History Tobacco Use Types Packs/Day Years [...] and Family Not on file 06/24/2024 Attends [employer] Not on file 06/24 Active Member [...] money to buy more. Never true 06/25/19 Within the past 12 months, t he [...] any time in the past 12 m onths, were you homeless or living in a senior care (including now)? No 06/24/2024 Utilities Answer Date Recorded In the past 12 months has th e electric, gas, oil, or water [employer] threatened to shut off services in your home? No 06/24/2024 Sex and Gender Information Value Date Recorded Sex Assigned at Male 12/02/2022 10:35 AM EDT Legal Sex Male 7:31 PM EDT Gender Identity Male 12/02/2022 10:35 AM EDT Sexual Orientation Straight 12/02/2022 10 :35 AM EDT documented as of this encounter Miscellaneous Notes * Telephone Encounter - Marline New, PharmD - 09/16/2024 12:32 PM EDT 1 medication(s) has been approved per protocol. Patient needs to keep upcoming appt for additional refills. documented in this encounter Plan of Treatment Upcoming Encounters Date Type Department Care Team (Late st Contact Info) Description 10/24/2024 10:45 AM EDT Office Visit [facility] Medicine Specialties [address] [place] [address] Jennifer Barber APRN, OMAR [address] [place] [address] 11/21/2024 9:30 AM EDT Office Visit [facility] [address], [address] [place] [address] Chu Null MD [address] [facility] [address] [place] [address] 09/11/2025 10:00 AM EDT Ancillary Procedure [facility] [address] [place] [address] 09/11/2025 11:00 AM EDT Office Visit [facility] [address], [address] [place] [address] Jeff Longoria MD [address] [place] [address] documented as of this encounter Goals Goal Patient Goal Type Associated Problems Recent Progress Patient-Stated? Author Autogenerat ed Goal Care Plan Autogenerated Problem No Antonia Johnson, RN Autogenerat ed Goal Care Plan Autogenerated Problem No Antonia Johnson, RN documented as of this encounter Visit Diagnoses Not on filedocumented in this encounter Additional Health Concerns Active [...] documented as of this encounter Care Teams Optical Instrument Specialist Relationship Specialty Start Date End Date Eric Maria MD [address] [place], [place] [address] [address] PCP - General 11/04/20 documented as of this encounter
--- OUTSIDE RECORDS SUMMARY | 2024-10-06 09:22 | XMS_ITS | Encounter Summary ---
Author Organization [employer] ([place], [place], [place], [place]) Address [address] [place] [address] Care Team Providers Care Small Products Assembler Name Role Phone Unavailable Primary Care Provider Unavailabl e Encounter Details Date Type Department Care Team (Late st Contact Info) Description 01/11/2019 Transcribed Document [facility] Family Medicine [address] [place] [address] ProviderJose MD [address] [place], [place] [id number] Social History Tobacco Use Types Packs/Day Years Used Date Smoking Tobacco: Never Assessed Sex and Gender Information Value Date Recorded Sex Assigned at Not on file Legal Sex Male 2:31 PM CDT Gender Identity Not on file Sexual Orientation Not on file documented as of this encounter Miscellaneous Notes * Cerner Conversion Note - Historical ProviderMD - 01/11/2019 3:57 PM HEALTH TECH Nursing Discharge Summary Entered On: 01/11/2019 15:58 EST Performed On: 01/11/2019 15:57 EST by Jailene Calvillo dry heat room attendant Documentation Discharge Date/Time : 01/11/2019 15:50 EST Transporter Signature : Carol Reza SWAN Patient Disposition, General : Discharge Discharge To : Home with ambulatory/outpatient follow-up Mode Of Departure, General Discharge : Ambulatory Accompanied By, Discharge : Spouse IV Discontinued : Yes Personal Belongings With Patient : Yes Prescriptions Given to Patient : Electronically sent Discharge Instructions Reviewed With, Opportunity For Questions Given : Patient, Spouse Patient Education Completed : Yes Teaching Method : Demonstration, Explanation, Printed materials Teaching Evaluation : Verbalizes understanding Jailene Calvillo, RN - 01/11/2019 15:57 EST Electronically signed by [facility] Conversion State Game Protector Cerner at 06/23/2022 11:58 AM CDT documented in this encounter Plan of Treatment Not on file documented as of this encounter Visit Diagnoses Not on filedocumented in this encounter
--- OUTSIDE RECORDS SUMMARY | 2024-10-06 09:22 | XMS_ITS | Encounter Summary ---
Author Organization [facility] ([place], [place], [place], [place]) Address [address] [place] [address] Care Team Providers Care Beverage Sales Consultant Name Role Phone Unavailable Primary Care Provider Unavailabl e Encounter Details Date Type Department Care Team (Late st Contact Info) Description 01/14/2019 Transcribed Document [facility] Family Medicine [address] [place] [address] ProviderJose MD [address] [place] [address] Social History Tobacco Use Types Packs/Day Years Used Date Smoking Tobacco: Never Assessed Sex and Gender Information Value Date Recorded Sex Assigned at Not on file Legal Sex Male 2:31 PM CDT Gender Identity Not on file Sexual Orientation Not on file documented as of this encounter Miscellaneous Notes * Cerner Conversion Note - Jose Stokes MD - 01/14/2019 2:16 PM FIELD TECHNICAL SPECIALIST [facility] Authorization Entered On: 01/14/2019 14:17 EST Performed On: 01/14/2019 14:16 EST by COLBY FABIAN RN-Utilization Review Primary Insurance Authorization Authorization and Policy Numbers : Insurance 1 Health Plan: R Policy Number: [id number] Authorization Number: Insurance 2 Health Plan: MEDICARE Policy Number: [id number] Authorization Number: Insurance Primary Name : [facility] [id number] Authorization Status-Primary : Pending clinicals Authorization Fax Number-Primary : [phone] Auth/Referral Phone Number-Primary : [phone] Auth/Referral Contact Name-Primary : Loren Reference Number-Primary : [id number] Authorization Number-Primary : [id number] Number of Days Authorized-Primary : 2 Day(s) Authorized Service Begin Date-Primary : 01/09/2019 EST Authorized Service End Date-Primary : 01/11/2019 EST Authorization Comments-Primary : Approved per loren Historical Authorization Comments-Primary : Comment 1: Clinicals faxed via [employer] to [phone] (KATHARINE MOREAU, Rn-Utilization Review 01/11/2019 11:00) Comment 2: rec'd call from Loren requesting clinicals be faxed to her [phone] fax [phone] (COLBY FABIAN RN-Utilization Review 01/11/2019 10:04) Comment 3: Auth initiated on [facility] portal. Awaiting call for clinicals. (KATHARINE MOREAU, Rn-Utilization Review 01/10/2019 10:02) OCLBY FABIAN RN-Utilization Review - 01/14/2019 14:16 EST documented in this encounter Plan of Treatment Not on file documented as of this encounter Visit Diagnoses Not on filedocumented in this encounter
--- OUTSIDE RECORDS SUMMARY | 2024-10-06 09:22 | XMS_ITS | Encounter Summary ---
Author Organization [facility] Address [address] [place] [address] Care Team Providers Care Toe Former Stitchdowns Name Role Phone Eric Maria MD Primary Care Provider [phone] Encounter Details Date Type Department Care Team (Late st Contact Info) Description 05/25/2024 Orders Only External Location [address] [place] [address] Vicky Sapp MD [address] [place] [address] Social History Tobacco Use Types Packs/Day Years [...] Description 10/24/2024 10:45 AM EDT Office Visit [facility] [address] [place] [address] Jennifer Barber, SALES ACCOUNT ASSOCIATE, DNP [address] [place] [address] 11/21/2024 9:30 AM EDT Office Visit [facility] [address] [place] [address] Chu Null MD [address] [facility] [address] [place] [address] 09/11/2025 10:00 AM EDT Ancillary Procedure [facility] [address] [place] [address] 09/11/2025 11:00 AM EDT Office Visit [facility] [address] [place] [address] Jeff Longoria MD [address] [place] [id number] documented as of this encounter Procedures Procedure Name Priority Date/Time Associated Diagnosis Comments XR MSK OUTSIDE IMAGES 05/25/2024 2:49 PM EDT documented in this encounter Results * XR MSK OUTSIDE IMAGES (05/25/2024 2:49 PM EDT) Anatomical Region Laterality Modality Radiographic Melly ging 05/25/2024 2:49 PM EDT Vicky Sapp MD IMG XR PROCEDURES Kristal l Result documented in this encounter Visit Diagnoses [...] documented as of this encounter Care Teams Toe Former Stitchdowns Relationship Specialty Start Date End Date Eric Maria MD [address] [place] [address] PCP - General 11/04/20 documented as of this encounter
--- OUTSIDE RECORDS SUMMARY | 2024-10-06 09:22 | XMS_ITS | Encounter Summary ---
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 Role Phone Unavailable Primary Care Provider Unavailabl e Encounter Details Date Type Department Care Team (Late st Contact Info) Description 01/11/2019 Transcribed Document [facility] Family Medicine [address] [place] [address] ProviderJose MD [address] [place] [address] Social History Tobacco Use Types Packs/Day Years Used Date Smoking Tobacco: Never Assessed Sex and Gender Information Value Date Recorded Sex Assigned at Not on file Legal Sex Male 2:31 PM CDT Gender Identity Not on file Sexual Orientation Not on file documented as of this encounter Miscellaneous Notes * Cerner Conversion Note - Jose Stokes MD - 01/11/2019 3:23 PM 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 [place] [id number] [place] :1950 Visit Time:01/09/2019 Your Visit Summary Your Care Team Admitting Physician - GERARDO RICHARDSON MD-CAR Attending Physician - GERARDO RICHARDSON MD-CAR Primary Care Physician - YUMIKO, UNKNOWN Your Diagnosis NSTEMI (non-ST elevated myocardial infarction) Other specified abnormal findings of blood chemistry, Other specified abnormal findings of blood chemistry These Are Your Goals I just want to be able to get out of here Discharge Vitals Temperature 36.7 ??C Heart Rate (Monitored) 79 Respiratory Rate 16 Blood Pressure 126/41 What to do next Instructions From Your Care Team Discharge Diet: Discharge Diet: Heart healthy diet Follow-Up Appointments Follow Up with need ot follow up with pcp in [facility] for prostate canacer gulshan When Within 2 to 3 days Follow Up with GERARDO RICHARDSON When Within 2 weeks Comments Office to call with appoint/instructions cbc check for blood counts in 2 weeks Where: [facility] [address] [place] [phone] Business (1) Medications What How Much When Instructions Next Dose carvedilol (Coreg 3.125 mg oral tablet) 1 Tablet(s) Oral Two Times A [facility] clopidogrel (clopidogrel 75 mg oral tablet) 1 Tablet(s) Oral Every Day [facility] nitroglycerin (Nitrostat 0.4 mg sublingual tablet) 1 Tablet(s) SubLINgual Every 5 minutes as needed for as needed for chest pain [facility] rivaroxaban (Xarelto 20 mg oral tablet) 1 Tablet(s) Oral Interval Every 24 Hours valsartan (Diovan 40 mg oral tablet) 1 Tablet(s) Oral Every Day [facility] PRAVAstatin (Pravachol 80 mg oral tablet) 1 Tablet(s) Oral Every Day [facility] aspirin (aspirin 81 mg oral tablet) 1 Tablet(s) Oral Every Day [facility] glipiZIDE (glipiZIDE 10 mg oral tablet, extended release) 1 Tablet(s) Oral Twice a Day Before Meals insulin detemir (Levemir FlexPen 100 units/ mL subcutaneous solution) 30 Unit(s) SubCutaneous At Bedtime metformin (metformin 1000 mg oral tablet) 1 Tablet(s) Oral Two Times A Day hold until friday 01/12 [facility] [address] [place], [place] [id number] [phone] Take your medications faithfully. Do NOT skip medication. Do NOT stop taking medications without the direction of a physician. Carry a list of your medications with you at all times, and take this medication list with you to your first follow up visit. Report any side effects. Avoid herbal remedies unless discussed with your physician. As part of your treatment plan, your physician may have prescribed a limited course of a controlled substance. This medication may be given to help people with moderate or severe pain or for other medical conditions, but there are risks involved with treatment. Common side effects may include nausea, constipation, drowsiness, sweating, itching, dry mouth, and rash. More serious side effects may include cognitive and motor impairment, like problems with thinking, concentrating, alertness, and movement (e.g. slowed reflexes), and driving and operating heavy machinery can be dangerous. It is important for you to talk to your physician if you have these side effects or questions. These controlled substances can produce physical dependence and be habit-forming if taken for an extended period of time, which means that the body has gotten used to them and may experience withdrawal symptoms if they are abruptly stopped. Withdrawal symptoms can include runny nose, sweating, goose bumps, diarrhea, abdominal cramping, rapid heartbeat, difficulty sleeping, and nervousness. Please dispose of unused and medications per your retail pharmacy guidance. Allergies No Known Allergies Immunizations This Visit No Immunizations Found Education Materials Heart-Healthy Eating Plan Heart-healthy meal planning includes: ??? Limiting unhealthy fats. ??? Increasing healthy fats. ??? Making other small dietary changes. You may need to talk with your doctor or a diet specialist (dietitian) to create an eating plan that is right for you. What types of fat should I choose? Choose healthy fats. These include olive oil and canola oil, flaxseeds, walnuts, almonds, and seeds. ??? Eat more omega-3 fats. These include salmon, mackerel, sardines, tuna, flaxseed oil, and ground flaxseeds. Try to eat fish at least twice each week. ??? Limit saturated fats. ? Saturated fats are often found in animal products, such as meats, butter, and cream. ? Plant sources of saturated fats include palm oil, palm kernel oil, and coconut oil. ??? Avoid foods with partially hydrogenated oils in them. These include stick margarine, some tub margarines, cookies, crackers, and other baked goods. These contain trans fats. What general guidelines do I need to follow? Check food labels carefully. Identify foods with trans fats or high amounts of saturated fat. ??? Fill one half of your plate with vegetables and green salads. Eat 4???5 servings of vegetables per day. A serving of vegetables is: ? 1 cup of raw leafy vegetables. ? ?? cup of raw or cooked cut-up vegetables. ? ?? cup of vegetable juice. ??? Fill one fourth of your plate with whole grains. Look for the word whole as the first word in the ingredient list. ??? Fill one fourth of your plate with lean protein foods. ??? Eat 4???5 servings of fruit per day. A serving of fruit is: ? One medium whole fruit. ? ?? cup of dried fruit. ? ?? cup of fresh, frozen, or canned fruit. ? ?? cup of 100% fruit juice. ??? Eat more foods that contain soluble fiber. These include apples, broccoli, carrots, beans, peas, and barley. Try to get 20???30 g of fiber per day. ??? Eat more home-cooked food. Eat less restaurant, buffet, and fast food. ??? Limit or avoid alcohol. ??? Limit foods high in starch and sugar. ??? Avoid fried foods. ??? Avoid frying your food. Try baking, boiling, grilling, or broiling it instead. You can also reduce fat by: ? Removing the skin from poultry. ? Removing all visible fats from meats. ? Skimming the fat off of stews, soups, and gravies before serving them. ? Steaming vegetables in water or broth. ??? Lose weight if you are overweight. ??? Eat 4???5 servings of nuts, legumes, and seeds per week: ? One serving of dried beans or legumes equals ?? cup after being cooked. ? One serving of nuts equals 1?? ounces. ? One serving of seeds equals ?? ounce or one tablespoon. ??? You may need to keep track of how much salt or sodium you eat. This is especially true if you have high blood pressure. Talk with your doctor or dietitian to get more information. What foods can I eat? Grains Breads, including [place], white, chencho, wheat, raisin, rye, oatmeal, and Russian. Tortillas that are neither fried nor made with lard or trans fat. Low-fat rolls, including hotdog and hamburger buns and [place] muffins. Biscuits. Muffins. Waffles. Pancakes. Light popcorn. Whole-grain cereals. Flatbread. Hurricane toast. Pretzels. Breadsticks. Rusks. Low-fat snacks. Low-fat crackers, including oyster, saltine, matzo, yancy, animal, and rye. Rice and pasta, including brown rice and pastas that are made with whole wheat. Vegetables All vegetables. Fruits All fruits, but limit coconut. Meats and Other Protein Sources Lean, well-trimmed beef, veal, pork, and soto. Chicken and turkey without skin. All fish and shellfish. Wild duck, rabbit, pheasant, and venison. Egg whites or low-cholesterol egg substitutes. Dried beans, peas, lentils, and tofu. Seeds and most nuts. Dairy Low-fat or nonfat cheeses, including ricotta, string, and mozzarella. Skim or 1% milk that is liquid, powdered, or evaporated. Buttermilk that is made with low-fat milk. Nonfat or low-fat yogurt. Beverages Mineral water. Diet carbonated beverages. Sweets and Desserts Sherbets and fruit ices. Honey, jam, marmalade, jelly, and syrups. Meringues and gelatins. Pure sugar candy, such as hard candy, jelly beans, gumdrops, mints, marshmallows, and small amounts of dark chocolate. Balwinder food cake. Eat all sweets and desserts in moderation. Fats and Oils Nonhydrogenated (trans-free) margarines. Vegetable oils, including soybean, sesame, sunflower, olive, peanut, safflower, corn, canola, and cottonseed. Salad dressings or mayonnaise made with a vegetable oil. Limit added fats and oils that you use for cooking, baking, salads, and as spreads. Other [place] powder. Coffee and tea. All seasonings and condiments. The items listed above may not be a complete list of recommended foods or beverages. Contact your dietitian for more options. What foods are not recommended? Grains Breads that are made with saturated or trans fats, oils, or whole milk. Croissants. Butter rolls. Cheese breads. Sweet rolls. Donuts. Buttered popcorn. Richardson mein noodles. High-fat crackers, such as cheese or butter crackers. Meats and Other Protein Sources Fatty meats, such as hotdogs, short ribs, sausage, spareribs, mir, rib eye roast or steak, and mutton. High-fat deli meats, such as salami and bologna. Caviar. Domestic duck and goose. Organ meats, such as kidney, liver, sweetbreads, and heart. Dairy Cream, sour cream, cream cheese, and creamed cottage cheese. Whole-milk cheeses, including blue (bettye), [place] Rajendra, Brie, [place], [place]ill[place], Havarti, Palestinian, cheddar, Camembert, and [place]. Whole or 2% milk that is liquid, evaporated, or condensed. Whole buttermilk. Cream sauce or high-fat cheese sauce. Yogurt that is made from whole milk. Beverages Regular sodas and juice drinks with added sugar. Sweets and Desserts Frosting. Pudding. Cookies. Cakes other than balwinder food cake. Candy that has milk chocolate or white chocolate, hydrogenated fat, butter, coconut, or unknown ingredients. Buttered syrups. Full-fat ice cream or ice cream drinks. Fats and Oils Gravy that has suet, meat fat, or shortening. [place] butter, hydrogenated oils, palm oil, coconut oil, palm kernel oil. These can often be found in baked products, candy, fried foods, nondairy creamers, and whipped toppings. Solid fats and shortenings, including mir fat, salt pork, lard, and butter. Nondairy cream substitutes, such as coffee creamers and sour cream substitutes. Salad dressings that are made of unknown oils, cheese, or sour cream. The items listed above may not be a complete list of foods and beverages to avoid. Contact your dietitian for more information. This information is not intended to replace advice given to you by your health care provider. Make sure you discuss any questions you have with your health care provider. Document Released: 08/21/2012 Document Revised: 07/28/2016 Document Reviewed: 08/14/2014 [email or web address] Interactive Patient Education ?? 2019 [email or web address] Radial Site Care Refer to this sheet in the next few weeks. These instructions provide you with information about caring for yourself after your procedure. Your health care provider may also give you more specific instructions. Your treatment has been planned according to current medical practices, but problems sometimes occur. Call your health care provider if you have any problems or questions after your procedure. What can I expect after the procedure? After your procedure, it is typical to have the following: ??? Bruising at the radial site that usually fades within 1???2 weeks. ??? Blood collecting in the tissue (hematoma) that may be painful to the touch. It should usually decrease in size and tenderness within 1???2 weeks. Follow these instructions at home: ??? Take medicines only as directed by your health care provider. ??? You may shower 24???48 hours after the procedure or as directed by your health care provider. Remove the bandage (dressing) and gently wash the site with plain soap and water. Pat the area dry with a clean towel. Do not rub the site, because this may cause bleeding. ??? Do not take baths, swim, or use a hot tub until your health care provider approves. ??? Check your insertion site every day for redness, swelling, or drainage. ??? Do not apply powder or lotion to the site. ??? Do not flex or bend the affected arm for 24 hours or as directed by your health care provider. ??? Do not push or pull heavy objects with the affected arm for 24 hours or as directed by your health care provider. ??? Do not lift over 10 lb (4.5 kg) for 5 days after your procedure or as directed by your health care provider. ??? Ask your health care provider when it is okay to: ? Return to work or school. ? Resume usual physical activities or sports. ? Resume sexual activity. ??? Do not drive home if you are discharged the same day as the procedure. Have someone else drive you. ??? You may drive 24 hours after the procedure unless otherwise instructed by your health care provider. ??? Do not operate machinery or power tools for 24 hours after the procedure. ??? If your procedure was done as an outpatient procedure, which means that you went home the same day as your procedure, a responsible adult should be with you for the first 24 hours after you arrive home. ??? Keep all follow-up visits as directed by your health care provider. This is important. Contact a health care provider if: ??? You have a fever. ??? You have chills. ??? You have increased bleeding from the radial site. Hold pressure on the site. Get help right away if: ??? You have unusual pain at the radial site. ??? You have redness, warmth, or swelling at the radial site. ??? You have drainage (other than a small amount of blood on the dressing) from the radial site. ??? The radial site is bleeding, and the bleeding does not stop after 30 minutes of holding steady pressure on the site. ??? Your arm or hand becomes pale, cool, tingly, or numb. This information is not intended to replace advice given to you by your health care provider. Make sure you discuss any questions you have with your health care provider. Document Released: 03/25/2011 Document Revised: 07/28/2016 Document Reviewed: 09/08/2014 [email or web address] Interactive Patient Education ?? 2019 [email or web address] Coronary Angiogram With Stent, Care After This sheet gives you information about how to care for yourself after your procedure. Your health care provider may also give you more specific instructions. If you have problems or questions, contact your health care provider. What can I expect after the procedure? After your procedure, it is common to have: ??? Bruising in the area where a small, thin tube (catheter) was inserted. This usually fades within 1???2 weeks. ??? Blood collecting in the tissue (hematoma) that may be painful to the touch. It should usually decrease in size and tenderness within 1???2 weeks. Follow these instructions at home: Insertion area care ??? Do not take baths, swim, or use a hot tub until your health care provider approves. ??? You may shower 24???48 hours after the procedure or as directed by your health care provider. ??? Follow instructions from your health care provider about how to take care of your incision. Make sure you: ? Wash your hands with soap and water before you change your bandage (dressing). If soap and water are not available, use hand pad machine feeder. ? Change your dressing as told by your health care provider. ? Leave stitches (sutures), skin glue, or adhesive strips in place. These skin closures may need to stay in place for 2 weeks or longer. If adhesive strip edges start to loosen and curl up, you may trim the loose edges. Do not remove adhesive strips completely unless your health care provider tells you to do that. ??? Remove the bandage (dressing) and gently wash the catheter insertion site with plain soap and water. ??? Pat the area dry with a clean towel. Do not rub the area, because that may cause bleeding. ??? Do not apply powder or lotion to the incision area. ??? Check your incision area every day for signs of infection. Check for: ? More redness, swelling, or pain. ? More fluid or blood. ? Warmth. ? Pus or a bad smell. Activity ??? Do not drive for 24 hours if you were given a medicine to help you relax (sedative). ??? Do not lift anything that is heavier than 10 lb (4.5 kg) for 5 days after your procedure or as directed by your health care provider. ??? Ask your health care provider when it is okay for you: ? To return to work or school. ? To resume usual physical activities or sports. ? To resume sexual activity. Eating and drinking ??? Eat a heart-healthy diet. This should include plenty of fresh fruits and vegetables. ??? Avoid the following types of food: ? Food that is high in salt. ? Canned or highly processed food. ? Food that is high in saturated fat or sugar. ? Fried food. ??? Limit alcohol intake to no more than 1 drink a day for non- women and 2 drinks a day for men. One drink equals 12 oz of beer, 5 oz of wine, or 1?? oz of hard liquor. Lifestyle ??? Do not use any products that contain nicotine or tobacco, such as cigarettes and e-cigarettes. If you need help quitting, ask your health care provider. ??? Take steps to manage and control your weight. ??? Get regular exercise. ??? Manage your blood pressure. ??? Manage other health problems, such as diabetes. General instructions ??? Take xtym-ywe-zxhbgce and prescription medicines only as told by your health care provider. Blood thinners may be prescribed after your procedure to improve blood flow through the stent. ??? If you need an MRI after your heart stent has been placed, be sure to tell the health care provider who orders the MRI that you have a heart stent. ??? Keep all follow-up visits as directed by your health care provider. This is important. Contact a health care provider if: ??? You have a fever. ??? You have chills. ??? You have increased bleeding from the catheter insertion area. Hold pressure on the area. Get help right away if: ??? You develop chest pain or shortness of breath. ??? You feel faint or you pass out. ??? You have unusual pain at the catheter insertion area. ??? You have redness, warmth, or swelling at the catheter insertion area. ??? You have drainage (other than a small amount of blood on the dressing) from the catheter insertion area. ??? The catheter insertion area is bleeding, and the bleeding does not stop after 30 minutes of holding steady pressure on the area. ??? You develop bleeding from any other place, such as from your rectum. There may be bright red blood in your urine or stool, or it may appear as black, tarry stool. This information is not intended to replace advice given to you by your health care provider. Make sure you discuss any questions you have with your health care provider. Document Released: 09/09/2005 Document Revised: 11/17/2016 Document Reviewed: 11/17/2016 [email or web address] Interactive Patient Education ?? 2019 [email or web address] Non-ST Segment Elevation Heart Attack A heart attack (myocardial infarction) happens when some of the heart muscle is injured or dies because it does not get enough oxygen. A non-ST segment elevation heart attack is a type of heart attack. It happens when the body does not get enough oxygen because an artery carrying blood to the heart muscles (coronary artery) becomes partly or temporarily blocked. This type of heart attack is usually less severe than the type of heart attack in which a coronary artery becomes completely blocked. CAUSES The most common cause of this condition is a blocked coronary artery. A coronary artery can become blocked from a gradual buildup of cholesterol, fat, and plaque. A blood clot can form over the plaque and block blood flow. RISK FACTORS This condition is more likely to develop in: ??? Smokers. ??? Males. ??? Older adults. ??? Overweight and obese adults. ??? People with high blood pressure (hypertension), high cholesterol, or diabetes. ??? People with a family history of heart disease. ??? People who do not get enough exercise. ??? People who are under a lot of stress. ??? People who drink too much alcohol. ??? People who use illegal street drugs that increase the heart rate, such as cocaine and methamphetamines. SYMPTOMS Symptoms of this condition include: ??? Chest pain or a feeling of pressure in the chest. It may feel like something is crushing or squeezing the chest. ??? Discomfort in the upper back or in the area between the shoulder blades. ??? Upper back pain. ??? Tingling in the hands and arms. ??? Shortness of breath. ??? Heartburn or indigestion. ??? Sudden cold sweats. ??? Unexplained sweating. ??? Sudden lightheadedness. ??? Unexplained feelings of nervousness or anxiety. ??? Feeling of tiredness, or not feeling well. DIAGNOSIS This condition is diagnosed based on a person's signs and symptoms and a physical exam. You may also have tests done, including: ??? Blood tests. ??? A chest X-ray. ??? An test to measure the electrical activity of the heart (electrocardiogram). ??? A test that uses sound waves to produce a picture of the heart (echocardiogram). ??? A test to look at the heart arteries (coronary angiogram). If you are still having chest pain after 12???24 hours, or if your health care providers think your heart is at risk, you may have a procedure called cardiac catheterization. In this procedure, a long, thin tube is inserted into an artery in your groin and moved up to the arteries in your heart. This procedure helps your health care provider figure out the source of the problem. TREATMENT This condition may be treated with: ??? Bed rest in the hospital. ??? Medicines to relieve chest pain. ??? Medicines to protect the heart. ??? If you have a blockage, a procedure in which the artery is opened (angioplasty) and a stent is placed to keep the artery open. After initial treatment you may need to take medicine to: ??? Keep your blood from clotting too easily. ??? Control your blood pressure. ??? Lower your cholesterol. ??? Control abnormal heart rhythms (arrhythmias). HOME CARE INSTRUCTIONS ??? Take medicines only as directed by your health care provider. ??? Do nottake the following medicines unless your health care provider approves: ? Nonsteroidal anti-inflammatory drugs (NSAIDs), such as ibuprofen, naproxen, or celecoxib. ? Vitamin supplements that contain vitamin A, vitamin E, or both. ? Hormone replacement therapy that contains estrogen with or without progestin. ??? Make lifestyle changes as directed by your health care provider. These may include: ? Using no tobacco products, including cigarettes, chewing tobacco, and electronic cigarettes. If you are struggling to quit, ask your health care provider for help. ? Exercising as directed by your health care provider. Ask for a list of activities that are safe for you. ? Eating a heart-healthy diet. Work with a registered dietitian to learn healthy eating options. ? Maintaining a healthy weight. ? Managing other medical conditions, like diabetes. ? Reducing stress. ? Limiting how much alcohol you drink as directed by your health care provider. SEEK IMMEDIATE MEDICAL CARE IF: ??? You have any symptoms of this condition. This information is not intended to replace advice given to you by your health care provider. Make sure you discuss any questions you have with your health care provider. Document Released: 09/19/2005 Document Revised: 05/14/2012 Document Reviewed: 01/28/2015 [email or web address] Interactive Patient Education ?? 2017 [employer]. pravastatin (PRAV a STAT in) Pravachol What is the most important information I should know about pravastatin? You should not take pravastatin if you are or breast-feeding, or if you have liver disease. Stop taking this medication and tell your doctor right away if you become . Serious drug interactions can occur when certain medicines are used together with pravastatin. Tell each of your healthcare providers about all medicines you use now, and any medicine you start or stop using. In rare cases, pravastatin can cause a condition that results in the breakdown of skeletal muscle tissue, leading to kidney failure. Call your doctor right away if you have unexplained muscle pain, tenderness, or weakness especially if you also have fever, unusual tiredness, and dark colored urine. What is pravastatin? Pravastatin is in a group of drugs called HMG CoA reductase inhibitors, or 'statins.' Pravastatin reduces levels of 'bad' cholesterol (low-density lipoprotein, or LDL) and triglycerides in the blood, while increasing levels of 'good' cholesterol (high-density lipoprotein, or HDL). Pravastatin is used to lower cholesterol and triglycerides (types of fat) in the blood. Pravastatin is also used to lower the risk of stroke, heart attack, and other heart complications in people with or without coronary heart disease or other risk factors. Pravastatin is used in adults and children who are at least 8 years old. Pravastatin may also be used for purposes not listed in this medication guide. What should I discuss with my healthcare provider before taking pravastatin? You should not use pravastatin if you are allergic to it, or if you have: ?? liver disease; or ?? if you are or breast-feeding. To make sure pravastatin is safe for you, tell your doctor if you have: ?? kidney disease; ?? abnormal liver function tests; ?? a thyroid disorder; or ?? if you drink more than 2 alcoholic beverages daily. Pravastatin can cause a condition that results in the breakdown of skeletal muscle tissue, leading to kidney failure. This condition may be more likely to occur in older adults and in people who have kidney disease or poorly controlled hypothyroidism (underactive thyroid). This medicine can harm an unborn baby or cause defects. Do not use if you are . Stop taking pravastatin and tell your doctor right away if you become . Use effective control to prevent while you are taking this medicine. Pravastatin can pass into breast milk and may harm a nursing baby. Do not breast-feed while using this medicine. Pravastatin is not approved for use by anyone younger than 8 years old. How should I take pravastatin? Follow all directions on your prescription label. Your doctor may occasionally change your dose to make sure you get the best results. Do not use this medicine in larger or smaller amounts or for longer than recommended. Pravastatin is usually taken once a day, with or without food. Take the medicine at the same time each day. Pravastatin doses are based on age, and are lower in children and teenagers. People taking this medicine during childhood or adolescence may need a different dose as adults. You may need to stop using pravastatin for a short time if you have: ?? uncontrolled seizures; ?? an electrolyte imbalance (such as high or low potassium levels in your blood); ?? severely low blood pressure; ?? a severe infection or illness; or ?? surgery or a medical emergency. While using pravastatin, you may need frequent blood tests. Pravastatin is only part of a complete treatment program that may also include diet, exercise, and weight control. Follow your doctor's instructions very closely. Store at room temperature away from moisture, heat, and light. Keep the bottle tightly closed when not in use. What happens if I miss a dose? Take the missed dose as soon as you remember. Skip the missed dose if it is almost time for your next scheduled dose. Do not take extra medicine to make up the missed dose. What happens if I overdose? Seek emergency medical attention or call the Poison Help line at . What should I avoid while taking pravastatin? If you also take cholestyramine or colestipol, avoid taking them within 1 hour after or 4 hours before you take pravastatin. Avoid eating foods that are high in fat or cholesterol. Pravastatin will not be as effective in lowering your cholesterol if you do not follow a cholesterol-lowering diet plan. Avoid drinking alcohol. It can raise triglyceride levels and may increase your risk of liver damage. Grapefruit and grapefruit juice may interact with pravastatin and lead to potentially dangerous effects. Discuss the use of grapefruit products with your doctor. What are the possible side effects of pravastatin? Get emergency medical help if you have signs of an allergic reaction: hives; difficulty breathing; swelling of your face, lips, tongue, or throat. In rare cases, pravastatin can cause a condition that results in the breakdown of skeletal muscle tissue, leading to kidney failure. Stop using pravastatin and call your doctor at once if you have: ?? unexplained muscle pain, tenderness, or weakness; ?? fever, unusual tiredness; ?? dark colored urine; ?? chest pain; ?? upper stomach pain, loss of appetite; or ?? jaundice (yellowing of the skin or eyes). Common side effects may include: ?? muscle or joint pain; ?? nausea, vomiting, diarrhea; ?? headache; or ?? cold symptoms such as stuffy nose, sneezing, sore throat. This is not a complete list of side effects and others may occur. Call your doctor for medical advice about side effects. You may report side effects to FDA at 5-826-IPH-2136. What other drugs will affect pravastatin? Using certain other drugs together with pravastatin can increase your risk of serious muscle problems. It is very important to tell your doctor about all medicines you use, and those you start or stop using during your treatment with pravastatin, especially: ?? colchicine; ?? cyclosporine; ?? an antibiotic such as azithromycin, clarithromycin, or erythromycin; ?? gemfibrozil, fenofibric acid, fenofibrate; or ?? medicines that contain niacin (Advicor, Niaspan, Niacor, Simcor, Slo-Niacin, and others). This list is not complete. Other drugs may interact with pravastatin, including prescription and bgrq-ibl-quwyezl medicines, vitamins, and herbal products. Not all possible interactions are listed in this medication guide. Where can I get more information? Your pharmacist can provide more information about pravastatin. Remember, keep this and all other medicines out of the reach of children, never share your medicines with others, and use this medication only for the indication prescribed. Every effort has been made to ensure that the information provided by [employer] is accurate, up-to-date, and complete, but no guarantee is made to that effect. Drug information contained herein may be time sensitive. [employer] information has been compiled for use by healthcare practitioners and consumers in the [place] and therefore [employer] does not warrant that uses outside of the [place] are appropriate, unless specifically indicated otherwise. [employer]'s drug information does not endorse drugs, diagnose patients or recommend therapy. [employer] drug information is an informational resource designed to assist licensed healthcare practitioners in caring for their patients and/or to serve consumers viewing this service as a supplement to, and not a substitute for, the expertise, skill, knowledge and judgment of healthcare practitioners. The absence of a warning for a given drug or drug combination in no way should be construed to indicate that the drug or drug combination is safe, effective or appropriate for any given patient. [employer] does not assume any responsibility for any aspect of healthcare administered with the aid of information [employer] provides. The information contained herein is not intended to cover all possible uses, directions, precautions, warnings, drug interactions, allergic reactions, or adverse effects. If you have questions about the drugs you are taking, check with your doctor, nurse or pharmacist. Copyright 0731-3927 [employer]. Version: 13.01. Revision Date: 10/21/2015. valsartan (hernan PAGE antunez) Vicki What is the most important information I should know about valsartan? Do not use if you are . Stop using valsartan and tell your doctor right away if you become . If you have diabetes, do not use valsartan together with any medication that contains aliskiren (a blood pressure medicine). What is valsartan? Valsartan is used to treat high blood pressure (hypertension) in adults and children who are at least 6 years old. Valsartan is sometimes given together with other blood pressure medications. Valsartan is also used in adults to treat heart failure, and to lower the risk of after a heart attack. Valsartan may also be used for purposes not listed in this medication guide. What should I discuss with my healthcare provider before taking valsartan? You should not use valsartan if you are allergic to it. If you have diabetes, do not use valsartan together with any medication that contains aliskiren (a blood pressure medicine). You may also need to avoid taking valsartan with aliskiren if you have kidney disease. Tell your doctor if you have ever had: ?? a heart condition other than one being treated with valsartan; ?? kidney disease; ?? liver disease; ?? if you are on a szi-tecm-ousv; or ?? if you have ever had a severe allergic reaction to any blood pressure medication. Do not use if you are . If you become , stop taking this medicine and tell your doctor right away. Valsartan can cause injury or to the unborn baby if you take the medicine during your second or third trimester. You should not breast-feed while using this medicine. Valsartan should not be given to a child younger than 6 years old. How should I take valsartan? Follow all directions on your prescription label and read all medication guides or instruction sheets. Your doctor may occasionally change your dose. Use the medicine exactly as directed. Take valsartan at the same time(s) each day, with or without food. If a child taking valsartan cannot swallow a capsule whole, your pharmacist can mix the medicine into a liquid. Shake this liquid well just before you measure a dose. Measure the medicine carefully. Use the dosing syringe provided, or use a medicine dose-measuring device (not a kitchen spoon). Your blood pressure will need to be checked often. Your kidney function may also need to be checked. You may have very low blood pressure while taking valsartan. Call your doctor if you are sick with vomiting or diarrhea, or if you are sweating more than usual. It may take 2 to 4 weeks of using this medicine before your blood pressure is under control. Keep using this medicine as directed, even if you feel well. High blood pressure often has no symptoms. You may need to use blood pressure medicine for the rest of your life. Talk with your doctor if your symptoms do not improve after 4 weeks of treatment. Store at room temperature away from moisture and heat. What happens if I miss a dose? Take the medicine as soon as you can, but skip the missed dose if it is almost time for your next dose. Do not take two doses at one time. What happens if I overdose? Seek emergency medical attention or call the Poison Help line at . What should I avoid while taking valsartan? Drinking alcohol can increase certain side effects of valsartan. Do not use potassium supplements or salt substitutes unless your doctor has told you to. Avoid getting up too fast from a sitting or lying position, or you may feel dizzy. What are the possible side effects of valsartan? Get emergency medical help if you have signs of an allergic reaction: hives; difficulty breathing; swelling of your face, lips, tongue, or throat. Also call your doctor at once if you have: ?? a light-headed feeling, like you might pass out; ?? swelling, rapid weight gain; ?? shortness of breath; ?? little or no urination; ?? pounding heartbeats or fluttering in your chest; or ?? high potassium level--nausea, weakness, tingly feeling, chest pain, irregular heartbeats, loss of movement. Common side effects may include: ?? headache, dizziness, tired feeling; ?? flu symptoms; ?? stomach pain, diarrhea; or ?? back pain, joint pain. This is not a complete list of side effects and others may occur. Call your doctor for medical advice about side effects. You may report side effects to FDA at 1-885-KFI-8072. What other drugs will affect valsartan? Tell your doctor about all your other medicines, especially: ?? a diuretic (water pill) or other medicines that lower blood pressure; ?? cyclosporine; ?? lithium; ?? rifampin; ?? ritonavir; ?? heart medication; or ?? NSAIDs (nonsteroidal anti-inflammatory drugs)--aspirin, ibuprofen (Advil, Motrin), naproxen (Aleve), celecoxib, diclofenac, indomethacin, meloxicam, and others. This list is not complete. Other drugs may affect valsartan, including prescription and cuhk-glo-sftwzit medicines, vitamins, and herbal products. Not all possible drug interactions are listed here. Where can I get more information? Your pharmacist can provide more information about valsartan. Remember, keep this and all other medicines out of the reach of children, never share your medicines with others, and use this medication only for the indication prescribed. Every effort has been made to ensure that the information provided by [employer] is accurate, up-to-date, and complete, but no guarantee is made to that effect. Drug information contained herein may be time sensitive. [employer] information has been compiled for use by healthcare practitioners and consumers in the [place] and therefore [employer] does not warrant that uses outside of the [place] are appropriate, unless specifically indicated otherwise. [employer] drug information does not endorse drugs, diagnose patients or recommend therapy. [employer] drug information is an informational resource designed to assist licensed healthcare practitioners in caring for their patients and/or to serve consumers viewing this service as a supplement to, and not a substitute for, the expertise, skill, knowledge and judgment of healthcare practitioners. The absence of a warning for a given drug or drug combination in no way should be construed to indicate that the drug or drug combination is safe, effective or appropriate for any given patient. [employer] does not assume any responsibility for any aspect of healthcare administered with the aid of information [employer] provides. The information contained herein is not intended to cover all possible uses, directions, precautions, warnings, drug interactions, allergic reactions, or adverse effects. If you have questions about the drugs you are taking, check with your doctor, nurse or pharmacist. Copyright 1415-8301 [employer]. Version: 17.02. Revision Date: 05/31/2018. aspirin (oral) ( pir in) Arthritis Pain, Aspir 81, Aspir-Low, Hortencia Childrens Aspirin, Durlaza, Ecotrin, Ecpirin, Fasprin, Halfprin, Miniprin What is the most important information I should know about aspirin? You should not use aspirin if you have a bleeding disorder such as hemophilia, a recent history of stomach or intestinal bleeding, or if you are allergic to an NSAID (non-steroidal anti-inflammatory drug). Aspirin can cause Lee's syndrome, a serious and sometimes fatal condition in children. What is aspirin? Aspirin is a salicylate (yr-KDX-lx-ate). It works by reducing substances in the body that cause pain, fever, and inflammation. Aspirin is used to treat pain, and reduce fever or inflammation. Aspirin is sometimes used to treat or prevent heart attacks, strokes, and chest pain (angina). Aspirin should be used for cardiovascular conditions only under the supervision of a doctor. Aspirin may also be used for purposes not listed in this medication guide. What should I discuss with my healthcare provider before taking aspirin? Do not give this medicine to a child or teenager with a fever, flu symptoms, or chicken pox. Aspirin can cause Lee's syndrome, a serious and sometimes fatal condition in children. You should not use aspirin if you are allergic to it, or if you have: ?? a recent history of stomach or intestinal bleeding; ?? a bleeding disorder such as hemophilia; or ?? if you have ever had an asthma attack or severe allergic reaction after taking aspirin or an NSAID (non-steroidal anti-inflammatory drug). Tell your doctor if you have ever had: ?? asthma or seasonal allergies; ?? stomach ulcers; ?? liver disease; ?? kidney disease; ?? a bleeding or blood clotting disorder; ?? gout; or ?? heart disease, high blood pressure, or congestive heart failure. Taking aspirin during late may cause bleeding in the mother or the baby during delivery. Tell your doctor if you are or plan to become . You should not breast-feed while using this medicine. How should I take aspirin? Use exactly as directed on the label, or as prescribed by your doctor. Take with food if aspirin upsets your stomach. Do not crush, chew, break, or open an enteric-coated or delayed-release pill. Swallow it whole. The chewable tablet form of aspirin must be chewed before swallowing. If you use the orally disintegrating tablet or the dispersible tablet, follow all dosing instructions provided with your medicine. If you need surgery, tell your surgeon you currently use this medicine. You may need to stop for a short time. Do not take this medicine if you smell a strong vinegar odor in the aspirin bottle. The medicine may no longer be effective. Store at room temperature away from moisture and heat. What happens if I miss a dose? Since aspirin is used when needed, you may not be on a dosing schedule. Skip any missed dose if it's almost time for your next dose. Do not use two doses at one time. What happens if I overdose? Seek emergency medical attention or call the Poison Help line at . Overdose symptoms may include temporary hearing loss, seizure (convulsions), or coma. What should I avoid while taking aspirin? Avoid alcohol. Heavy drinking can increase your risk of stomach bleeding. If you are taking aspirin to prevent heart attack or stroke, avoid also taking ibuprofen (Advil, Motrin). Ibuprofen may make aspirin less effective. If you must use both medications, take the ibuprofen at least 8 hours before or 30 minutes after you take the aspirin (non-enteric coated form). Ask a doctor or pharmacist before using other medicines for pain, fever, swelling, or cold/flu symptoms. They may contain ingredients similar to aspirin (such as magnesium salicylate, ibuprofen, ketoprofen, or naproxen). What are the possible side effects of aspirin? Get emergency medical help if you have signs of an allergic reaction: hives; difficult breathing; swelling of your face, lips, tongue, or throat. Stop using aspirin and call your doctor at once if you have: ?? ringing in your ears, confusion, hallucinations, rapid breathing, seizure (convulsions); ?? severe nausea, vomiting, or stomach pain; ?? bloody or tarry stools, coughing up blood or vomit that looks like coffee grounds; ?? fever lasting longer than 3 days; or ?? swelling, or pain lasting longer than 10 days. Common side effects may include: ?? upset stomach, heartburn; ?? drowsiness; or ?? mild headache. This is not a complete list of side effects and others may occur. Call your doctor for medical advice about side effects. You may report side effects to FDA at 9-888-MDB-1742. What other drugs will affect aspirin? Ask your doctor before using aspirin if you take an antidepressant. Taking certain antidepressants with aspirin may cause you to bruise or bleed easily. Ask a doctor or pharmacist before using aspirin with any other medications, especially: ?? a blood thinner (warfarin, Coumadin, Jantoven), or other medication used to prevent blood clots; or ?? other salicylates such as Nuprin Backache Caplet, Kaopectate, KneeRelief, Pamprin Cramp Formula, Pepto-Bismol, Tricosal, Trilisate, and others. This list is not complete. Other drugs may affect aspirin, including prescription and wwzy-bdv-ijyjxyu medicines, vitamins, and herbal products. Not all possible drug interactions are listed here. Where can I get more information? Your pharmacist can provide more information about aspirin. Remember, keep this and all other medicines out of the reach of children, never share your medicines with others, and use this medication only for the indication prescribed. Every effort has been made to ensure that the information provided by [employer] is accurate, up-to-date, and complete, but no guarantee is made to that effect. Drug information contained herein may be time sensitive. [employer] information has been compiled for use by healthcare practitioners and consumers in the [place] and therefore [employer] does not warrant that uses outside of the [place] are appropriate, unless specifically indicated otherwise. [employer] drug information does not endorse drugs, diagnose patients or recommend therapy. [employer] drug information is an informational resource designed to assist licensed healthcare practitioners in caring for their patients and/or to serve consumers viewing this service as a supplement to, and not a substitute for, the expertise, skill, knowledge and judgment of healthcare practitioners. The absence of a warning for a given drug or drug combination in no way should be construed to indicate that the drug or drug combination is safe, effective or appropriate for any given patient. [facility] does not assume any responsibility for any aspect of healthcare administered with the aid of information [facility] provides. The information contained herein is not intended to cover all possible uses, directions, precautions, warnings, drug interactions, allergic reactions, or adverse effects. If you have questions about the drugs you are taking, check with your doctor, nurse or pharmacist. Copyright 2753-4551 [facility]. Version: 15.. Revision Date: 06/05/2017. clopidogrel (kloe PID oh grel) Plavix What is the most important information I should know about clopidogrel? You should not use this medicine if you have any active bleeding such as a stomach ulcer or bleeding in the brain. Clopidogrel increases your risk of bleeding, which can be severe or life-threatening. Call your doctor or seek emergency medical attention if you have bleeding that will not stop, if you have blood in your urine, black or bloody stools, or if you cough up blood or vomit that looks like coffee grounds. Do not stop taking clopidogrel without first talking to your doctor, even if you have signs of bleeding. Stopping clopidogrel may increase your risk of a heart attack or stroke. What is clopidogrel? Clopidogrel is used to lower your risk of having a stroke, blood clot, or serious heart problem after you've had a heart attack, severe chest pain (angina), or circulation problems. Clopidogrel may also be used for purposes not listed in this medication guide. What should I discuss with my healthcare provider before taking clopidogrel? You should not use clopidogrel if you are allergic to it, or if you have: ?? any active bleeding; or ?? a stomach ulcer or bleeding in the brain (such as from a head injury). Tell your doctor if you have ever had: ?? an ulcer in your stomach or intestines; or ?? a bleeding disorder or blood clotting disorder. Clopidogrel may not work as well if you have certain genetic factors that affect the breakdown of this medicine in your body. Your doctor may perform a blood test to make sure clopidogrel is right for you. This medicine is not expected to harm an unborn baby. However, taking clopidogrel within 1 week before childbirth can cause bleeding in the mother. Tell your doctor if you are or plan to become . You should not breast-feed while using this medicine. How should I take clopidogrel? Follow all directions on your prescription label and read all medication guides or instruction sheets. Use these medicines exactly as directed. Clopidogrel can be taken with or without food. Clopidogrel is sometimes taken together with aspirin. Take aspirin only if your doctor tells you to. Clopidogrel keeps your blood from coagulating (clotting) and can make it easier for you to bleed, even from a minor injury. Contact your doctor or seek emergency medical attention if you have any bleeding that will not stop. You may need to stop using clopidogrel for a short time before a surgery, medical procedure, or dental work. Any healthcare provider who treats you should know that you are taking clopidogrel. Do not stop taking clopidogrel without first talking to your doctor, even if you have signs of bleeding. Stopping the medicine could increase your risk of a heart attack or stroke. Store at room temperature away from moisture and heat. What happens if I miss a dose? Take the medicine as soon as you can, but skip the missed dose if it is almost time for your next dose. Do not take two doses at one time. What happens if I overdose? Seek emergency medical attention or call the Poison Help line at . Overdose can cause excessive bleeding. What should I avoid while taking clopidogrel? Avoid alcohol. It can increase your risk of stomach bleeding. Avoid activities that may increase your risk of bleeding or injury. Use extra care to prevent bleeding while shaving or brushing your teeth. If you also take aspirin: Ask a doctor or pharmacist before using medicines for pain, fever, swelling, or cold/flu symptoms. They may contain ingredients similar to aspirin (such as salicylates, ibuprofen, ketoprofen, or naproxen). Taking these products together can increase your risk of bleeding. What are the possible side effects of clopidogrel? Get emergency medical help if you have signs of an allergic reaction: hives; difficult breathing; swelling of your face, lips, tongue, or throat. Clopidogrel increases your risk of bleeding, which can be severe or life-threatening. Call your doctor or seek emergency medical attention if you have bleeding that will not stop, if you have blood in your urine, black or bloody stools, or if you cough up blood or vomit that looks like coffee grounds. Also call your doctor at once if you have: ?? pale skin, easy bruising, purple spots under your skin or in your mouth; ?? jaundice (yellowing of your skin or eyes); ?? fast heartbeats, shortness of breath; ?? headache, fever, weakness, feeling tired; ?? little or no urination; ?? a seizure; or ?? signs of a blood clot--sudden numbness or weakness, confusion, problems with vision or speech. This is not a complete list of side effects and others may occur. Call your doctor for medical advice about side effects. You may report side effects to FDA at 1-897-AWA-6382. What other drugs will affect clopidogrel? Certain other medicines may increase your risk of bleeding, including aspirin. Avoid taking aspirin unless your doctor tells you to. Tell your doctor about all your other medicines, especially: ?? any other medicines to treat or prevent blood clots; ?? a stomach acid heat reader such as omeprazole, Nexium, or Prilosec; ?? an antidepressant; ?? an opioid medication; ?? a blood thinner--warfarin, Coumadin, Jantoven; or ?? NSAIDs (nonsteroidal anti-inflammatory drugs)--ibuprofen (Advil, Motrin), naproxen (Aleve), celecoxib, diclofenac, indomethacin, meloxicam, and others. This list is not complete. Other drugs may affect clopidogrel, including prescription and qoxs-kaq-bsnyqmd medicines, vitamins, and herbal products. Not all possible drug interactions are listed here. Where can I get more information? Your pharmacist can provide more information about clopidogrel. Remember, keep this and all other medicines out of the reach of children, never share your medicines with others, and use this medication only for the indication prescribed. Every effort has been made to ensure that the information provided by [employer] ('[employer]') is accurate, up-to-date, and complete, but no guarantee is made to that effect. Drug information contained herein may be time sensitive. [employer] information has been compiled for use by healthcare practitioners and consumers in the [place] and therefore [employer] does not warrant that uses outside of the [place] are appropriate, unless specifically indicated otherwise. [employer] drug information does not endorse drugs, diagnose patients or recommend therapy. [employer] drug information is an informational resource designed to assist licensed healthcare practitioners in caring for their patients and/or to serve consumers viewing this service as a supplement to, and not a substitute for, the expertise, skill, knowledge and judgment of healthcare practitioners. The absence of a warning for a given drug or drug combination in no way should be construed to indicate that the drug or drug combination is safe, effective or appropriate for any given patient. [facility] does not assume any responsibility for any aspect of healthcare administered with the aid of information [facility] provides. The information contained herein is not intended to cover all possible uses, directions, precautions, warnings, drug interactions, allergic reactions, or adverse effects. If you have questions about the drugs you are taking, check with your doctor, nurse or pharmacist. Copyright 2560-6408 [employer]. Version: 15.. Revision Date: 12/25/2017. carvedilol (HEIDY ve dil ole) Coreg, Zachary CR What is the most important information I should know about carvedilol? You should not take carvedilol if you have asthma, bronchitis, emphysema, severe liver disease, or a serious heart condition such as heart block, 'sick sinus syndrome,' or slow heart rate (unless you have a pacemaker). What is carvedilol? Carvedilol is a beta-torito that is used to treat heart failure and hypertension (high blood pressure). Carvedilol is also used after a heart attack that has caused your heart not to pump as well. Carvedilol may also be used for purposes not listed in this medication guide. What should I discuss with my healthcare provider before taking carvedilol? You should not take carvedilol if you are allergic to it, or if you have: ?? asthma, bronchitis, emphysema; ?? severe liver disease; or ?? a serious heart condition such as severe heart failure, heart block, 'sick sinus syndrome,' or slow heart rate (unless you have a pacemaker). Tell your doctor if you have ever had: ?? coronary artery disease (clogged arteries); ?? slow heartbeats that have caused you to faint; ?? fluid retention; ?? asthma or other lung problems; ?? angina (chest pain); ?? diabetes (taking carvedilol can make it harder for you to tell when you have low blood sugar); ?? a thyroid disorder; ?? kidney disease; ?? circulation problems (such as Raynaud's syndrome); or ?? pheochromocytoma (tumor of the adrenal gland). Tell your doctor if you are or . Carvedilol is not approved for use by anyone younger than 18 years old. How should I take carvedilol? Follow all directions on your prescription label and read all medication guides or instruction sheets. Your doctor may occasionally change your dose. Use the medicine exactly as directed. Carvedilol works best if you take it with food, at the same time every day. Swallow the extended-release capsule whole and do not crush, chew, break, or open it. If you cannot swallow a capsule whole, open it and sprinkle the medicine into a spoonful of cold applesauce. Swallow the mixture right away without chewing. Do not save it for later use. If you are switched from carvedilol tablets to carvedilol extended-release capsules (Coreg CR), your daily total dose of this medicine may be higher or lower than before. Older adults may be more likely to become dizzy or feel faint when switching from tablets to extended-release capsules. Follow your doctor's instructions. Your blood pressure will need to be checked often. If you need surgery (including cataract surgery), tell your surgeon you currently use this medicine. You may need to stop for a short time. You should not stop using carvedilol suddenly. Stopping suddenly may cause chest pain or a heart attack. Follow your doctor's instructions about tapering your dose. If you are being treated for high blood pressure, keep using this medication even if you feel well. High blood pressure often has no symptoms. You may need to use blood pressure medication for the rest of your life. Carvedilol is only part of a complete treatment program that may also include diet, exercise, and weight control. Follow your doctor's instructions very closely. Store at room temperature away from moisture and heat. What happens if I miss a dose? Take the medicine as soon as you can, but skip the missed dose if it is almost time for your next dose. Do not take two doses at one time. What happens if I overdose? Seek emergency medical attention or call the Poison Help line at . Overdose symptoms may include uneven heartbeats, shortness of breath, bluish-colored fingernails, dizziness, weakness, fainting, and seizure (convulsions). What should I avoid while taking carvedilol? Avoid driving or hazardous activity until you know how this medicine will affect you. Your reactions could be impaired. Avoid getting up too fast from a sitting or lying position, or you may feel dizzy. What are the possible side effects of carvedilol? Get emergency medical help if you have signs of an allergic reaction: hives; difficulty breathing; swelling of your face, lips, tongue, or throat. Call your doctor at once if you have: ?? a light-headed feeling, like you might pass out; ?? slow or uneven heartbeats; ?? cold feeling or numbness in your fingers or toes; ?? chest pain, dry cough, wheezing, chest tightness; ?? heart problems--swelling, rapid weight gain, feeling short of breath; or ?? high blood sugar--increased thirst, increased urination, dry mouth, fruity breath odor. Common side effects may include: ?? dizziness; ?? slow heartbeats; ?? diarrhea; ?? weight gain; ?? dry eyes; or ?? problems wearing contact lenses. This is not a complete list of side effects and others may occur. Call your doctor for medical advice about side effects. You may report side effects to FDA at 3-678-UTA-1615. What other drugs will affect carvedilol? Sometimes it is not safe to use certain medications at the same time. Some drugs can affect your blood levels of other drugs you take, which may increase side effects or make the medications less effective. Other drugs may affect carvedilol, including prescription and jzvq-wbl-neiarob medicines, vitamins, and herbal products. Tell your doctor about all your current medicines and any medicine you start or stop using. Where can I get more information? Your pharmacist can provide more information about carvedilol. documented in this encounter Plan of Treatment Not on file documented as of this encounter Visit Diagnoses Not on filedocumented in this encounter
--- OUTSIDE RECORDS SUMMARY | 2024-10-06 09:22 | XMS_ITS | Encounter Summary ---
Author Organization [employer] ([place], [place], [place], [place]) Address [address] [place] [address] Care Team Providers Care Front Elevator Operator Name Role Phone Unavailable Primary Care Provider Unavailabl e Encounter Details Date Type Department Care Team (Late st Contact Info) Description 01/10/2019 Transcribed Document [facility] [place] Family Medicine [address] [place] [address] ProviderJose MD [address] [place], [place] [id number] Social History Tobacco Use Types Packs/Day Years Used Date Smoking Tobacco: Never Assessed Sex and Gender Information Value Date Recorded Sex Assigned at Not on file Legal Sex Male 2:31 PM CDT Gender Identity Not on file Sexual Orientation Not on file documented as of this encounter Miscellaneous Notes * [employer]ner Conversion Note - Historical ProviderMD - 01/10/2019 11:16 AM 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 OT Charges Entered On: 01/10/2019 11:16 EST Performed On: 01/10/2019 11:16 EST by KIM GUZMAN OTR/Jamilah Loving OT Charges Screen For Industrial Spraypainter : 1 KIM GUZMAN OTR/Jamilah - 01/10/2019 11:16 EST documented in this encounter Plan of Treatment Not on file documented as of this encounter Visit Diagnoses Not on filedocumented in this encounter
--- OUTSIDE RECORDS SUMMARY | 2024-10-06 09:22 | XMS_ITS | Encounter Summary ---
Author Organization [employer] ([place], [place], [place], [place]) Address [address] [place] [address] Care Team Providers Care Director Of Laboratory Operations Name Role Phone Unavailable Primary Care Provider Unavailabl e Encounter Details Date Type Department Care Team (Late st Contact Info) Description 01/11/2019 Transcribed Document [facility] [place] Family Medicine [address] [place] [address] ProviderJose MD [address] [place], [place] [id number] Social History Tobacco Use Types Packs/Day Years Used Date Smoking Tobacco: Never Assessed Sex and Gender Information Value Date Recorded Sex Assigned at Not on file Legal Sex Male 2:31 PM CDT Gender Identity Not on file Sexual Orientation Not on file documented as of this encounter Miscellaneous Notes * Cerner Conversion Note - Jose Stokes MD - 01/11/2019 10:04 AM CELL STRIPPER FINAL UM Authorization Entered On: 01/11/2019 10:05 EST Performed On: 01/11/2019 10:04 EST by COLBY FABIAN RN-Utilization Review Primary Insurance Authorization Authorization and Policy Numbers : Insurance 1 Health Plan: R Policy Number: [id number] Authorization Number: Insurance 2 Health Plan: MEDICARE Policy Number: [id number] Authorization Number: Insurance Primary Name : [facility] [id number] Authorization Status-Primary : Pending clinicals Authorization Fax Number-Primary : [phone] Auth/Referral Phone Number-Primary : [phone] Auth/Referral Contact Name-Primary : Loren Reference Number-Primary : [id number] Authorized Service Begin Date-Primary : 01/11/2019 EST Authorization Comments-Primary : rec'd call from Loren requesting clinicals be faxed to her [phone] fax [phone] Historical Authorization Comments-Primary : Comment 1: Auth initiated on [facility] portal. Awaiting call for clinicals. (KATHARINE MOREAU, Rn-Utilization Review 01/10/2019 10:02) COLBY FABIAN RN-Utilization Review - 01/11/2019 10:04 EST Electronically signed by [facility] Conversion Toll Ticket Clerk Cerner at 06/23/2022 12:02 PM CDT documented in this encounter Plan of Treatment Not on file documented as of this encounter Visit Diagnoses Not on filedocumented in this encounter
--- OUTSIDE RECORDS SUMMARY | 2024-10-06 09:22 | XMS_ITS | Encounter Summary ---
Author Organization [employer] ([place], [place], [place], [place]) Address [address] [place] [address] Care Team Providers Care Heavy Equipment Sales Manager Name Role Phone Unavailable Primary Care Provider Unavailabl e Encounter Details Date Type Department Care Team (Late st Contact Info) Description 01/11/2019 Transcribed Document [facility] [place] [address] [place] [address] ProviderJose MD [address] [place], [place] [id number] Social History Tobacco Use Types Packs/Day Years Used Date Smoking Tobacco: Never Assessed Sex and Gender Information Value Date Recorded Sex Assigned at Not on file Legal Sex Male 2:31 PM CDT Gender Identity Not on file Sexual Orientation Not on file documented as of this encounter Miscellaneous Notes * Cerner Conversion Note - Jose Stokes MD - 01/11/2019 3:23 PM [employer] LEAD Patient Education Materials Follows: Heart-Healthy Eating Plan Heart-healthy meal planning includes: [...] plate with vegetables and green salads. Eat 4?5 servings of vegetables per day. A serving of vegetables is: ? 1 cup of raw leafy vegetables. ? ? cup of raw or cooked cut-up vegetables. ? ? cup of vegetable juice. ??? Fill one fourth of your plate with whole grains. Look for the word whole as the first word in the ingredient list. ??? Fill one fourth of your plate with lean protein foods. ??? Eat 4?5 servings of fruit per day. A serving of fruit is: ? One medium whole fruit. ? ? cup of dried fruit. ? ? cup of fresh, frozen, or canned fruit. ? ? cup of 100% fruit juice. ??? Eat more foods that contain soluble fiber. These include apples, broccoli, carrots, beans, peas, and barley. Try to get 20?30 g of fiber per day. ??? Eat [...] weight if you are overweight. ??? Eat 4?5 servings of nuts, legumes, and seeds per week: ? One serving of dried beans or legumes equals ? cup after being cooked. ? One serving of nuts equals 1? ounces. ? One serving of seeds equals ? ounce or one tablespoon. ??? You may need to keep track of how much salt or sodium you eat. This is especially true if you have high blood pressure. Talk with your doctor or dietitian to get more information. What foods can I eat? Grains Breads, including Portuguese, white, chencho, wheat, raisin, rye, oatmeal, and Telugu. Tortillas that are neither fried nor made with lard or trans fat. Low-fat rolls, including hotdog and hamburger buns and Malay muffins. Biscuits. Muffins. Waffles. Pancakes. Light popcorn. Whole-grain cereals. Flatbread. Bennett toast. Pretzels. Breadsticks. Rusks. Low-fat snacks. Low-fat [...] cooking, baking, salads, and as spreads. Other [place] powder. Coffee and tea. All seasonings and [...] cottage cheese. Whole-milk cheeses, including blue (bettye), [place] Rajendra, Brie, Antelmo, Barbadian, Havarti, Pakistani, cheddar, Camembert, and [place]. Whole or 2% milk that is liquid, [...] that has suet, meat fat, or shortening. [place] butter, hydrogenated oils, palm oil, coconut oil, [...] 08/21/2012 Document Revised: 07/28/2016 Document Reviewed: 08/14/2014 [employer] Interactive Patient Education ? 2019 [employer]. Radial Site Care Refer to this sheet [...] the radial site that usually fades within 1?2 weeks. ??? Blood collecting in the tissue (hematoma) that may be painful to the touch. It should usually decrease in size and tenderness within 1?2 weeks. Follow these instructions at home: ??? Take medicines only as directed by your health care provider. ??? You may shower 24?48 hours after the procedure or as directed [...] 03/25/2011 Document Revised: 07/28/2016 Document Reviewed: 09/08/2014 [employer] Interactive Patient Education ? 2019 [employer] Inc. Coronary Angiogram With Stent, Care After [...] (catheter) was inserted. This usually fades within 1?2 weeks. ??? Blood collecting in the tissue (hematoma) that may be painful to the touch. It should usually decrease in size and tenderness within 1?2 weeks. Follow these instructions at home: Insertion area care ??? Do not take baths, swim, or use a hot tub until your health care provider approves. ??? You may shower 24?48 hours after the procedure or as directed by your health care provider. ??? Follow instructions from your health care provider about how to take care of your incision. Make sure you: ? Wash your hands with soap and water before you change your bandage (dressing). If soap and water are not available, use hand convertible top installer. ? Change your dressing as told by [...] of beer, 5 oz of wine, or 1? oz of hard liquor. Lifestyle ??? Do not use any products that contain nicotine or tobacco, such as cigarettes and e-cigarettes. If you need help quitting, ask your health care provider. ??? Take steps to manage and control your weight. ??? Get regular exercise. ??? Manage your blood pressure. ??? Manage other health problems, such as diabetes. General instructions ??? Take wvzy-laa-cktaolp and prescription medicines only as told by [...] 09/09/2005 Document Revised: 11/17/2016 Document Reviewed: 11/17/2016 [employer] Interactive Patient Education ? 2019 [employer] Inc. Non-ST Segment Elevation Heart Attack A [...] you are still having chest pain after 12?24 hours, or if your health care providers [...] 09/19/2005 Document Revised: 05/14/2012 Document Reviewed: 01/28/2015 Elsevier Interactive Patient Education ? 2017 [employer] documented in this encounter Plan of Treatment Not on file documented as of this encounter Visit Diagnoses Not on filedocumented in this encounter
--- OUTSIDE RECORDS SUMMARY | 2024-10-06 09:22 | XMS_ITS | Encounter Summary ---
Author Organization [employer] ([place], [place], [place], [place]) Address [address] [place] [address] Care Team Providers Care Fine Wire Drawer Name Role Phone Unavailable Primary Care Provider Unavailabl e Encounter Details Date Type Department Care Team (Late st Contact Info) Description 01/10/2019 Transcribed Document [facility] [place] Family Medicine [address] [place] [address] ProviderJose MD [address] [place] [address] Social History Tobacco Use Types Packs/Day Years Used Date Smoking Tobacco: Never Assessed Sex and Gender Information Value Date Recorded Sex Assigned at Not on file Legal Sex Male 2:31 PM CDT Gender Identity Not on file Sexual Orientation Not on file documented as of this encounter Miscellaneous Notes * Cerner Conversion Note - Historical ProviderMD - 01/10/2019 5:00 AM BARTACKER Height and Weight, Routine Entered On: 01/10/2019 6:08 EST Performed On: 01/10/2019 5:00 EST by Mitesh Hanson Cna I Height and Weight, Routine Routine Weight Source : Standing scale Routine Weight Entry Format : [place] Routine Weight, Pounds : 165 lb Routine Weight, Ounces : 8 oz Routine Weight Calculation : 75.23 kg Height Source : Stated Height Entry Format : [place] Height, Feet : 5 ft Height, Inches : 9 Inch Clinical Height : 175.26 cm Body Surface Area (BSA), Routine : 1.91 m2 Body Mass Index (BMI), Routine : 24.49 kg/m2 Mitesh Hanson Cna I - 01/10/2019 6:08 EST Electronically signed by [facility] Conversion Narrow Fabric Calenderer Cerner at 06/23/2022 12:05 PM CDT documented in this encounter Plan of Treatment Not on file documented as of this encounter Visit Diagnoses Not on filedocumented in this encounter
--- OUTSIDE RECORDS SUMMARY | 2024-10-06 09:22 | XMS_ITS | Encounter Summary ---
Author Organization [employer] ([place], [place], [place], [place]) Address [address] [place] [address] Care Team Providers Care Weigher Production Name Role Phone Unavailable Primary Care Provider Unavailabl e Encounter Details Date Type Department Care Team (Late st Contact Info) Description 01/11/2019 Transcribed Document [facility] [place] [address] [place] [address] ProviderJose MD [address] [place], [place] [id number] Social History Tobacco Use Types Packs/Day Years Used Date Smoking Tobacco: Never Assessed Sex and Gender Information Value Date Recorded Sex Assigned at Not on file Legal Sex Male 2:31 PM CDT Gender Identity Not on file Sexual Orientation Not on file documented as of this encounter Miscellaneous Notes * Cerner Conversion Note - Historical ProviderMD - 01/11/2019 5:00 AM LAB INTERN Height and Weight, Routine Entered On: 01/11/2019 4:47 EST Performed On: 01/11/2019 5:00 EST by Aleida Philippe CNA Height and Weight, Routine Routine Weight Source : Standing scale Routine Weight Entry Format : Green Lane Routine Weight, Pounds : 162 lb Routine Weight, Ounces : 7 oz Routine Weight Calculation : 73.84 kg Height Source : Stated Height Entry Format : Green Lane Height, Feet : 5 ft Height, Inches : 9 Inch Clinical Height : 175.26 cm Body Surface Area (BSA), Routine : 1.89 m2 Body Mass Index (BMI), Routine : 24.04 kg/m2 Aleida Philippe CNA - 01/11/2019 4:46 EST documented in this encounter Plan of Treatment Not on file documented as of this encounter Visit Diagnoses Not on filedocumented in this encounter
--- OUTSIDE RECORDS SUMMARY | 2024-10-06 09:22 | XMS_ITS | Encounter Summary ---
Author Organization [employer] ([place], [place], [place], [place]) Address [address] [place] [address] Care Team Providers Care Lead Miner Blasting Name Role Phone Unavailable Primary Care Provider Unavailabl e Encounter Details Date Type Department Care Team (Late st Contact Info) Description 01/11/2019 Transcribed Document [facility] [place] [address] [place] [address] ProviderJose MD [address] [place], [place] [id number] Social History Tobacco Use Types Packs/Day Years Used Date Smoking Tobacco: Never Assessed Sex and Gender Information Value Date Recorded Sex Assigned at Not on file Legal Sex Male 2:31 PM CDT Gender Identity Not on file Sexual Orientation Not on file documented as of this encounter Miscellaneous Notes * Cerner Conversion Note - Jose Stokes MD - 01/11/2019 11:00 AM WEB APPLICATION TESTER UM Authorization Entered On: 01/11/2019 11:01 EST Performed On: 01/11/2019 11:00 EST by KATHARINE MOREAU Rn-Utilization Review Primary Insurance Authorization Authorization and Policy Numbers : Insurance 1 Health Plan: R Policy Number: [id number] Authorization Number: Insurance 2 Health Plan: MEDICARE Policy Number: [id number] Authorization Number: Insurance Primary Name : [facility] [id number] Authorization Status-Primary : Pending clinicals Authorization Fax Number-Primary : [phone] Auth/Referral Phone Number-Primary : [phone] Auth/Referral Contact Name-Primary : Loren Reference Number-Primary : [id number] Authorized Service Begin Date-Primary : 01/11/2019 EST Authorization Comments-Primary : Clinicals faxed via [employer] to [phone] Historical Authorization Comments-Primary : Comment 1: rec'd call from Loren requesting clinicals be faxed to her [phone] fax [phone] (COLBY FABIAN, RN-Utilization Review 01/11/2019 10:04) Comment 2: Auth initiated on R portal. Awaiting call for clinicals. (KATHARINE MOREAU, Michael-Utilization Review 01/10/2019 10:02) KATHARINE MOREAU Rn-Utilization Review - 01/11/2019 11:00 EST documented in this encounter Plan of Treatment Not on file documented as of this encounter Visit Diagnoses Not on filedocumented in this encounter
--- OUTSIDE RECORDS SUMMARY | 2024-10-06 09:22 | XMS_ITS | Encounter Summary ---
Author Organization [employer] ([place], [place], [place], [place]) Address [address] [place] [address] Care Team Providers Care Batcher Operator Name Role Phone Unavailable Primary Care Provider Unavailabl e Encounter Details Date Type Department Care Team (Late st Contact Info) Description 01/09/2019 Transcribed Document [facility] [place] [address] [place] [address] ProviderJose MD [address] [place], [place] [id number] Social History Tobacco Use Types Packs/Day Years Used Date Smoking Tobacco: Never Assessed Sex and Gender Information Value Date Recorded Sex Assigned at Not on file Legal Sex Male 2:31 PM CDT Gender Identity Not on file Sexual Orientation Not on file documented as of this encounter Miscellaneous Notes * Cerner Conversion Note - Jose ProviderMD - 01/09/2019 4:39 PM SENIOR PRODUCT MARKETING MANAGER Pain Assessment Entered On: 01/11/2019 0:03 EST Performed On: 01/10/2019 20:11 EST by Rowan Salcedo RN Intervention Information: acetaminophen Performed by Adeline Vasquez RN on 01/10/2019 19:11:00 EST acetaminophen,650mg Oral,Pain (Mild 1-3) Pain Assessment Pain Assessment : Follow-up assessment Pain Scale Goal : 2 Pain Scale Used : 0-10 Scale Rowan Salcedo RN - 01/11/2019 0:03 EST Pain Scale Intensity : Non pain medication administration Rowan Salcedo RN - 01/11/2019 0:03 EST Image 4 - Images currently included in the form version of this document have not been included in the text rendition version of the form. documented in this encounter Plan of Treatment Not on file documented as of this encounter Visit Diagnoses Not on filedocumented in this encounter
--- OUTSIDE RECORDS SUMMARY | 2024-10-06 09:22 | XMS_ITS | Referral Summary ---
Author Organization [employer] ([place], [place], [place], [place]) Address [address] [place] [address] Care Team Providers Care Customer Engagement Manager Name Role Phone Unavailable Primary Care Provider Unavailabl e Social History Tobacco Use Types Packs/Day Years Used Date Smoking Tobacco: Never Assessed Sex and Gender Information Value Date Recorded Sex Assigned at Not on file Legal Sex Male 2:31 PM CDT Gender Identity Not on file Sexual Orientation Not on file Plan of Treatment Not on file
--- OUTSIDE RECORDS SUMMARY | 2024-10-06 09:22 | XMS_ITS | Encounter Summary ---
Author Organization [employer] ([place], [place], [place], [place]) Address [address] [place] [address] Care Team Providers Care Internal Medicine Nurse Name Role Phone Unavailable Primary Care Provider Unavailabl e Encounter Details Date Type Department Care Team (Late st Contact Info) Description 01/11/2019 Transcribed Document [facility] [place] Family Medicine [address] [place] [address] ProviderJose MD [address] [place] [address] Social History Tobacco Use Types Packs/Day Years Used Date Smoking Tobacco: Never Assessed Sex and Gender Information Value Date Recorded Sex Assigned at Not on file Legal Sex Male 2:31 PM CDT Gender Identity Not on file Sexual Orientation Not on file documented as of this encounter Miscellaneous Notes * Cerner Conversion Note - Jose ProviderMD - 01/11/2019 2:58 PM COLORIST PHOTOGRAPHY Initial Discharge Planning Entered On: 01/11/2019 15:02 EST Performed On: 01/11/2019 14:58 EST by ADELAIDE QUIROZ, RN-Director Community Organization Initial Assessment I Previously Documented Living Environment : No qualifying data available. Living Situation : Home Patient Lives With : Spouse Is the Patient a Caregiver at Home? 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 : Yes Medical Durable Power of Manager Neonatal Name : No Legal Guardian : No ADELAIDE QUIROZ, RN-Director Community Organization - 01/11/2019 14:58 EST Initial Assessment II Sensory and Motor Deficits : None Current Home Treatments and Equipment : None ADELAIDE QUIROZ, RN-Director Community Organization - 01/11/2019 14:58 EST Discharge Needs I Anticipated Discharge Date : 01/11/2019 EST Anticipated Discharge To, CM : Home independently, Home with family care Current Home Treatment/Equipment : Current Home Treatment/Equipment No qualifying data available. Post Acute/Home Treatments : None Documentation Status Complete : Yes ADELAIDE QUIROZ, RN-Director Community Organization - 01/11/2019 14:58 EST Discharge Needs II Professional Skilled Services : Professional Skilled Services No qualifying data available. Needs Assistance with Transportation : No Discharge Options Discussed with Patient : Discharge transportation, DME ADELAIDE QUIROZ, RN-Director Community Organization - 01/11/2019 14:58 EST Narrative Note Narrative Note : Prior to admission patient was independent in all areas. Patient has a pacemaker in place managed by Marco A Gavin in [place]. Patient has had an emotional time this admission as prior to this the patient was seen at the ER at a local place, the hospital in [place] and now here. During this time his tearfully shared with CM it was reported to them by [place] that an oncology consult would be needed due to findings on the CT scans. Home plan. ADELAIDE QUIROZ, RN-Director Community Organization - 01/11/2019 14:58 EST documented in this encounter Plan of Treatment Not on file documented as of this encounter Visit Diagnoses Not on filedocumented in this encounter
--- OUTSIDE RECORDS SUMMARY | 2024-10-06 09:22 | XMS_ITS | Encounter Summary ---
Author Organization [facility] Address [address] [place] [address] Care Team Providers Care Varnish Cooker Name Role Phone Eric Maria MD Primary Care Provider Encounter Details Date Type Department Care Team (Late st Contact Info) Description 05/26/2024 Orders Only External Location [address] [place] [address] Provider, External Social History Tobacco Use Types [...] Visit [facility] [address] [place] [address] Jennifer Barber, SALESFORCE DEVELOPER, DNP [address] [place] [phone] 11/21/2024 9:30 AM EDT Office Visit [facility] [address] [place] [address] Chu Null MD [address] [place] [address] 09/11/2025 10:00 AM EDT Ancillary Procedure [facility] Medicine Specialties [address] [place] [address] 09/11/2025 11:00 AM EDT Office Visit [facility] [address] [place] [address] Jeff Longoria MD [address] [place] [address] documented as of this encounter Procedures Procedure Name Priority Date/Time Associated Diagnosis Comments XR MSK OUTSIDE IMAGES 05/26/2024 6:10 PM EDT documented in this encounter Results * XR MSK OUTSIDE IMAGES (05/26/2024 6:10 PM EDT) Anatomical Region Laterality Modality Radiographic Melly ging 05/26/2024 6:10 PM EDT External Provider IMG XR PROCEDURES [...] documented as of this encounter Care Teams Varnish Cooker Relationship Specialty Start Date End Date Eric Maria MD [address] [place] [address] PCP - General 11/04/20 documented as of this encounter
--- OUTSIDE RECORDS SUMMARY | 2024-10-06 09:22 | XMS_ITS | Encounter Summary ---
Author Organization [employer] ([place], [place], [place], [place]) Address [address] [place] [address] Care Team Providers Care Lumber Piler Operator Name Role Phone Unavailable Primary Care Provider Unavailabl e Encounter Details Date Type Department Care Team (Late st Contact Info) Description 01/09/2019 Transcribed Document [facility] [place] Family Medicine [address] [place] [address] ProviderJose MD [address] [place], [place] [phone] Social History Tobacco Use Types Packs/Day Years Used Date Smoking Tobacco: Never Assessed Sex and Gender Information Value Date Recorded Sex Assigned at Not on file Legal Sex Male 2:31 PM CDT Gender Identity Not on file Sexual Orientation Not on file documented as of this encounter Miscellaneous Notes * Cerner Conversion Note - Historical ProviderMD - 01/09/2019 6:30 PM BUSINESS REPRESENTATIVE Event Note Entered On: 01/09/2019 21:44 EST Performed On: 01/09/2019 18:30 EST by Jailene Calvillo RN Event Note Event Date/Time : 01/09/2019 18:30 EST Description of Event : Patient with complaint of pain lateral to sternum. Reproducible when RN palpates area. Does not radiate. No shortness of breath and vital signs remain unchanged. Patient states this is not like the chest pain that brought him to the hospital. Medicated with norco per orders. RN educated pt and family about pain goals. RN advised patient to notify staff immediately if shortness of breath, dizziness, or new radiation of pain occur. Jailene Calvillo RN - 01/09/2019 21:42 EST Electronically signed by Az [facility] Conversion Computer Installer Cerner at 06/23/2022 12:03 PM CDT documented in this encounter Plan of Treatment Not on file documented as of this encounter Visit Diagnoses Not on filedocumented in this encounter
--- OUTSIDE RECORDS SUMMARY | 2024-10-06 09:22 | XMS_ITS | Encounter Summary ---
Author Organization [facility] Address [address] [place] [address] Care Team Providers Care Oyster Tonger Name Role Phone Eric Maria MD Primary Care Provider [phone] Encounter Details Date Type Department Care Team ([facility] st Contact Info) Description 06/24/2024 Lab Requisition [facility] [address] [place] [address] Mirza Reyna MD [address] [facility] [address] [place] [phone] Encounter for general adult medical examination without abnormal findings Social History Tobacco Use Types Packs/Day Years [...] and Family Not on file 06/24/2024 Attends Synagogue Services Not on file 06/24 Active Member [...] Date Recorded Patient Health Questionnaire-2 Score 0 06/24/2024 Hunger Vital Sign Answer Date Recorded Within [...] Answer Date Recorded Patient Health Questionnaire-9 Score 3 06/24/2024 Housing Stability Vital Sign Answer Zak e [...] were you homeless or living in a assisted (including now)? No 06/24/2024 Utilities Answer Date Recorded In the past 12 months has th e electric, gas, oil, or water oBaz threatened to shut off services in your [...] pleasure in doing things Not at all 06/24/2024 4:03 PM Maricarmen Baugh RN Feeling down, depressed, or hopeless Not at all 06/24/2024 4:03 PM Maricarmen Baugh RN Patient Health Questionnaire-2 Score 0 06/24/2024 4:03 PM Maricarmen Baugh RN * Question Answer Date of Assessment Author Trouble falling or staying asleep, or sleeping too much Several days 06/24/2024 4:03 PM Maricarmen Baugh RN Feeling tired or having little energy Several days 06/24/2024 4:03 PM Maricarmen Baugh RN Poor appetite or overeating Several days 06/24/2024 4: 03 PM Maricarmen Baugh RN Feeling bad about yourself - or that you are a failure or have let yourself or your family down Not at all 06/24/2024 4:03 PM Maricarmen Baugh RN Trouble concentrating on things, such as reading the newspaper or watching television Not at all 06/24/2024 4:03 PM Maricarmen Baugh RN Moving or speaking so slowly that other people could have noticed? Or the opposite - being so fidgety or restless that you have been moving around a lot more than usual. Not at all 06/24/2024 4:03 PM Maricarmen Baugh RN Thoughts that you would be better off or hurting yourself in some way Not at all 06/24/2024 4:03 PM Maricarmen Baugh RN Patient Health Questionnaire-9 Score 3 06/24/2024 4:03 PM EDT Maricarmen Haynes, COLBY * Calculated C-SSRS Risk Score (Lifetime/Recent) Answer Date of Assessment Author No Risk Indicated 06/25/2024 8:00 PM EDT Erika Meng * If you checked off any problems on this questionnaire so far, Question Answer Date of Assessment Author How difficult have these problems made it for you to do your work, take care of things at home, or get along with other people? Not difficult at all 06/24/2024 4:03 PM EDT Maricarmen Haynes, COLBY * Question Answer Date of Assessment Author 1. Wish to be (Past 1 Month) No 025 8:00 PM EDT Erika Neves 2. Non-Specific Active Suici reese Thoughts (Past 1 Month) No 06/25/2024 8:00 PM EDT Evelia Neves 6. Suicidal Behavior (Lifetime) No 8:00 PM EDT Erika Neves documented as of this encounter Plan of Treatment Upcoming Encounters Date Type Department Care Team (Late st Contact Info) Description 10/24/2024 10:45 AM EDT Office Visit [facility] [address] [place] [address] Jennifer Barber APRN, OMAR [address] [place] [phone] 11/21/2024 9:30 AM EDT Office Visit [facility] [address] [place] [phone] Chu Null MD [address] [facility] [address] [place] [address] 09/11/2025 10:00 AM EDT Ancillary Procedure [facility] [address] [place] [phone] 09/11/2025 11:00 AM EDT Office Visit [address] [place] [address] Jeff Longoria MD [address] [place] [address] documented as of this encounter Procedures Procedure Name Priority Date/Time Associated Diagnosis Comments MULTI DRUG RESISTANCE TEST Routine 06/24/2024 12:00 PM EDT Encounter for general adult medical examination without abnormal findings documented in this encounter Results * Multi Drug Resistance Test (06/24/2024 12:00 PM EDT) Culture No Multi Drug Resistant Organisms Isolated 06/25/2024 1:21 PM EDT [facility] Swab (Nares and Dhara Rectal) 06/24/2024 12:00 PM EDT 06/24/2024 2:24 PM EDT us Mirza Reyna MD LAB MICROBIOLOGY - GEN ERAL ORDERABLES Final Result [facility] [address] [place] [address] documented in this encounter Visit Diagnoses Diagnosis Encounter for general adult medical examination without abnormal findings documented in this encounter Additional Health Concerns Infection Onset Date Last Indicated Resolved Time COVID-19 Rule-Out 06/23/2024 06/23/2024 06/24/2024 8:12 AM EDT Assessment Noted Time PHQ-9 Depression Total Score: 3 06/25/19 25 4:03 PM EDT A fall risk assessment has been complete d for the patient 11/03/2023 10:27 AM EDT A Body Mass Index follow-up plan has been documented for the patient 07/10/2024 10:52 AM EDT documented as of this encounter Care Teams Oyster Tonger Relationship Specialty Start Date End Date Eric Maria MD [address] [place] [address] PCP - General 11/04/20 documented as of this encounter
--- OUTSIDE RECORDS SUMMARY | 2024-10-06 09:22 | XMS_ITS | Encounter Summary ---
Author Organization [employer] ([place], [place], [place], [place]) Address [address] [place] [address] Care Team Providers Care Telecom Network Manager Name Role Phone Unavailable Primary Care Provider Unavailabl e Encounter Details Date Type Department Care Team (Late st Contact Info) Description 01/10/2019 Transcribed Document [facility] [place] [address] [place] [address] ProviderJose MD [address] [place], [place] [phone] Social History Tobacco Use Types Packs/Day Years Used Date Smoking Tobacco: Never Assessed Sex and Gender Information Value Date Recorded Sex Assigned at Not on file Legal Sex Male 2:31 PM CDT Gender Identity Not on file Sexual Orientation Not on file documented as of this encounter Miscellaneous Notes * Cerner Conversion Note - Jose Stokes MD - 01/10/2019 9:38 PM EXTRUSION SUPERVISOR Rapid Response Team Documentation Entered On: 01/10/2019 21:40 EST Performed On: 01/10/2019 21:38 EST by Shital Martins RN Rapid Response Event Rapid Response Event Intiated By : Hospital Staff Rapid Response Team Initiation Reason : Change in MEWS score Rapid Response Event Location Type : Other: 327 Rapid Response Admission Diagnosis : Other specified abnormal findings of blood chemistry Other specified abnormal findings of blood chemistry Rapid Response Medical Background : At risk for sleep apnea (Medical) Atrial fibrillation (Patient Stated) CAD (coronary artery disease) (Patient Stated) CVA - Cerebrovascular accident (Medical) Diabetes mellitus (Medical) Hyperlipidemia (Medical) Hyperlipidemia (Patient Stated) Hypertension (Medical) Pacemaker (Patient Stated) Prostate CA (Patient Stated) Rapid Response Allergies : Substance Category Reactions Severity No Known Allergies Drug Rapid Response Recent Vital Signs : 01/10/2019 21:00 Systolic Blood Pressure 108 01/10/2019 21:00 Diastolic Blood Pressure 66 01/10/2019 21:00 Heart Rate Monitored 91 01/10/2019 19:00 Respiratory Rate 18 01/10/2019 20:00 Temperature, Fahrenheit 99.5 01/10/2019 21:00 Oxygen Saturation 97 Rapid Response Recent Lab Results : 01/10/2019 05:51 Sodium Level 138 (136-146) 01/10/2019 05:51 Potassium Level 4.5 (3.5-5.1) 01/10/2019 05:51 Calcium Level 9.1 (8.5-10.1) 01/09/2019 17:47 Magnesium Level 2.1 (1.5-2.4) 01/10/2019 16:31 Glucose POC2 HI 178 (70-110) 01/10/2019 05:51 Chloride Level 102 (102-112) 01/10/2019 05:51 Carbon Dioxide Level 30 (21-32) 01/10/2019 05:51 Blood Urea Nitrogen 14 (7-22) 01/10/2019 05:51 Creatinine Level 1.18 (0.70-1.30) 01/09/2019 17:47 PT 10.9 (9.6-11.5) 01/09/2019 17:47 INR 1.1 (0.9-1.1) 01/09/2019 17:47 PTT HI 36.1 (24.5-30.1) 01/09/2019 17:47 Hgb 14.6 (13.7-17.5) 01/09/2019 17:47 Hct 42.2 (40.1-51.0) 01/09/2019 17:47 RBC 4.89 (4.63-6.08) 01/09/2019 17:47 WBC 7.4 (3.9-10.0) 01/09/2019 17:47 Platelet Count LOW 145 (163-369) 01/10/2019 05:51 Troponin I Ultra CRIT 23.700 (0.015-0.045) Weight/BMI : Clinical Weight/BMI CLINICALWEIGHT: 76.53 kg (01/09/19 16:03:00) Body Mass Index: 24.9 kg/m2 High (01/09/19 16:03:00) Rapid Response Team Recommendation/Response : Mews of 3 at 1900. Spoke with COLBY James, patient's fever resolving no logner MEWS of 3. Encouraged to call with any needs or questions. Patient Condition at End of Event : No S/S of Acute Distress Patient Disposition Post Event : No change in location/level of care Rapid Response Telecom Network Manager #1 : Shital Martins, RN Shital Martins, RN - 01/10/2019 21:38 EST Electronically signed by Az, [facility] Conversion Shampoo Person Cerner at 06/23/2022 11:55 AM CDT documented in this encounter Plan of Treatment Not on file documented as of this encounter Visit Diagnoses Not on filedocumented in this encounter
--- OUTSIDE RECORDS SUMMARY | 2024-10-06 09:22 | XMS_ITS | Encounter Summary ---
Author Organization [employer] ([place], [place], [place], [place]) Address [address] [place] [address] Care Team Providers Care Retail Delivery Driver Name Role Phone Unavailable Primary Care Provider Unavailabl e Encounter Details Date Type Department Care Team (Late st Contact Info) Description 01/11/2019 Transcribed Document [facility] [place] [address] [place] [address] ProviderJose MD [address] [place], [place] [phone] Social History Tobacco Use Types Packs/Day Years Used Date Smoking Tobacco: Never Assessed Sex and Gender Information Value Date Recorded Sex Assigned at Not on file Legal Sex Male 2:31 PM CDT Gender Identity Not on file Sexual Orientation Not on file documented as of this encounter Miscellaneous Notes * Cerner Conversion Note - Historical ProviderMD - 01/11/2019 2:00 AM HOT STONE SETTER Fountain Vending Mechanic Details Entered On: 01/11/2019 2:18 EST Performed On: 01/11/2019 2:00 EST by Rowan Salcedo RN Order Details Transport Mode Order Detail : Wheelchair Isolation Precautions Order Detail : Contact precautions Order Detail : N/A IV Order Detail : 1 Oxygen Order Detail : 0 Nurse Collect Order Detail : 0 Lift/Transfer : Minimal Central Line Order Detail : No Room Service : Appropriate Arterial Line : No Rowan Salcedo RN - 01/11/2019 2:18 EST documented in this encounter Plan of Treatment Not on file documented as of this encounter Visit Diagnoses Not on filedocumented in this encounter
--- OUTSIDE RECORDS SUMMARY | 2024-10-06 09:22 | XMS_ITS | Encounter Summary ---
Author Organization [employer] ([place], [place], [place], [place]) Address [address] [place] [address] Care Team Providers Care Rn Referral Name Role Phone Unavailable Primary Care Provider Unavailabl e Encounter Details Date Type Department Care Team (Late st Contact Info) Description 01/09/2019 Transcribed Document [facility] [place] [address] [place] [address] ProviderJose MD [address] [place], [place] [address] Social History Tobacco Use Types Packs/Day Years Used Date Smoking Tobacco: Never Assessed Sex and Gender Information Value Date Recorded Sex Assigned at Not on file Legal Sex Male 2:31 PM CDT Gender Identity Not on file Sexual Orientation Not on file documented as of this encounter Miscellaneous Notes * Cerner Conversion Note - Historical ProviderMD - 01/09/2019 5:00 PM FITNESS CENTRE MANAGER Chart Check - Review Order Profile Entered On: 01/09/2019 21:12 EST Performed On: 01/09/2019 17:00 EST by Jailene Calvillo RN Chart Check Powerplans Initiated/Discontinued as Appropriate : Not applicable All Active Orders Reviewed : Yes Jailene Calvillo RN - 01/09/2019 21:12 EST Electronically signed by [facility] Conversion Warehouse Foreman Cerner at 06/23/2022 12:04 PM CDT documented in this encounter Plan of Treatment Not on file documented as of this encounter Visit Diagnoses Not on filedocumented in this encounter
--- OUTSIDE RECORDS SUMMARY | 2024-10-06 09:22 | XMS_ITS | Encounter Summary ---
Author Organization [facility] Address [address] [place] [address] Care Team Providers Care Car Dispatcher Name Role Phone Eric Maria MD Primary Care Provider Encounter Details Date Type Department Care Team (Late st Contact Info) Description 05/25/2024 Orders Only External Location [address] [place] [address] Provider, External Social History Tobacco Use Types [...] Description 10/24/2024 10:45 AM EDT Office Visit [facility] [address] [place] [address] Jennifer Barber, RETAIL DISTRICT MANAGER, DNP [address] [place] [phone] 11/21/2024 9:30 AM EDT Office Visit [facility] [address] [place] [address] Chu Null MD [address] [place] [address] 09/11/2025 10:00 AM EDT Ancillary Procedure [facility] [address], [address] [place] [address] 09/11/2025 11:00 AM EDT Office Visit [facility] [address] [place] [address] Jeff Longoria MD [address] [place] [address] documented as of this encounter Procedures Procedure Name Priority Date/Time Associated Diagnosis Comments CT MSK OUTSIDE IMAGES 05/25/2024 6:03 PM EDT documented in this encounter Results * CT MSK OUTSIDE IMAGES (05/25/2024 6:03 PM EDT) Anatomical Region Laterality Modality Computed Tomogra phy 05/25/2024 6:03 PM EDT External Provider IMG CT PROCEDURES Final Result documented in this encounter [...] documented as of this encounter Care Teams Car Dispatcher Relationship Specialty Start Date End Date Eric Maria MD [address] [place] [id number] PCP - General 11/04/20 documented as of this encounter
--- OUTSIDE RECORDS SUMMARY | 2024-10-06 09:22 | XMS_ITS | Encounter Summary ---
Author Organization [employer] ([place], [place], [place], [place]) Address [address] [place] [address] Care Team Providers Care Harness Preparer Name Role Phone Unavailable Primary Care Provider Unavailmacario e Encounter Details Date Type Department Care Team (Late st Contact Info) Description 01/10/2019 Transcribed Document [facility] [place] [address] [place] [address] ProviderJose MD [address] [place], [place] [phone] Social History Tobacco Use Types Packs/Day Years Used Date Smoking Tobacco: Never Assessed Sex and Gender Information Value Date Recorded Sex Assigned at Not on file Legal Sex Male 2:31 PM CDT Gender Identity Not on file Sexual Orientation Not on file documented as of this encounter Miscellaneous Notes * Cerner Conversion Note - Historical ProviderMD - 01/10/2019 2:00 AM 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 Hat Cleaner Details Entered On: 01/10/2019 1:28 EST Performed On: 01/10/2019 2:00 EST by Analy Mckeon RN Order Details Transport Mode Order Detail : Wheelchair Isolation Precautions Order Detail : Standard Precautions Order Detail : N/A IV Order Detail : 1 Oxygen Order Detail : 0 Nurse Collect Order Detail : 0 Lift/Transfer : Minimal Central Line Order Detail : No Room Service : Not Appropriate Arterial Line : No Analy Mckeon RN - 01/10/2019 1:28 EST documented in this encounter Plan of Treatment Not on file documented as of this encounter Visit Diagnoses Not on filedocumented in this encounter
--- OUTSIDE RECORDS SUMMARY | 2024-10-06 09:22 | XMS_ITS | Encounter Summary ---
Author Organization [facility] Address [address] [place] [address] Care Team Providers Care Lode Miner Blasting Name Role Phone Eric Maria MD Primary Care Provider Encounter Details Date Type Department Care Team (Late st Contact Info) Description 05/26/2024 Orders Only External Location [address] [place] [address] Provider, External Social History Tobacco Use Types [...] Description 10/24/2024 10:45 AM EDT Office Visit [facility] [address], [address] [place] [address] Jennifer Barber, HARD CANDY BATCH MIXER, DNP [address] [place] [phone] 11/21/2024 9:30 AM EDT Office Visit [facility] [address] [place] [address] Chu Null MD [address] [place] [address] 09/11/2025 10:00 AM EDT Ancillary Procedure [facility]ties [address] [place] [address] 09/11/2025 11:00 AM EDT Office Visit [facility] [address] [place] [address] Jeff Longoria MD [address] [place] [address] documented as of this encounter [...] documented as of this encounter Care Teams Lode Miner Blasting Relationship Specialty Start Date End Date Eric Maria MD [address] [place] [address] PCP - General 11/04/20 documented as of this encounter
--- OUTSIDE RECORDS SUMMARY | 2024-10-06 09:22 | XMS_ITS | Encounter Summary ---
Author Organization [employer] ([place], [place], [place], [place]) Address [address] [place] [address] Care Team Providers Care Binding Cutter Synthetic Cloth Name Role Phone Unavailable Primary Care Provider Unavailabl e Encounter Details Date Type Department Care Team (Late st Contact Info) Description 01/10/2019 Transcribed Document [facility] [place] [address] [place] [address] ProviderJose MD [address] [place] [address] Social History Tobacco Use Types Packs/Day Years Used Date Smoking Tobacco: Never Assessed Sex and Gender Information Value Date Recorded Sex Assigned at Not on file Legal Sex Male 2:31 PM CDT Gender Identity Not on file Sexual Orientation Not on file documented as of this encounter Miscellaneous Notes * Cerner Conversion Note - Historical ProviderMD - 01/10/2019 9:24 AM COUNSELOR SUPERVISOR Therapy Screen, OT Entered On: 01/10/2019 11:16 EST Performed On: 01/10/2019 9:24 EST by KIM GUZMAN OTR/Jamilah Therapy Screen, OT Medical Chart Reviewed : Yes Person Providing Information : Family, Patient Screen Completed : Yes Recommendations for Evaluation OT : Do not recommend Occupational Therapy evaluation Therapy Screen Findings, OT : Patient at functional baseline Recommendations Upon Discharge : None Additional Therapy Screen Comment : Pt reports he is I with ADLs, functional mobility, and denies any need for therapy at this time. Family agrees with this, and reports he has already taken a full shower by himself. No further skilled OT indicated. KIM GUZMAN OTR/Jamilah - 01/10/2019 11:15 EST documented in this encounter Plan of Treatment Not on file documented as of this encounter Visit Diagnoses Not on filedocumented in this encounter
--- OUTSIDE RECORDS SUMMARY | 2024-10-06 09:22 | XMS_ITS | Encounter Summary ---
Author Organization [employer] ([place], [place], [place], [place]) Address [address] [place] [address] Care Team Providers Care Nurse Aide Name Role Phone Unavailable Primary Care Provider Unavailabl e Encounter Details Date Type Department Care Team (Late st Contact Info) Description 01/11/2019 Transcribed Document [facility] [place] [address] [place] [address] ProviderJose MD [address] [id number] Social History Tobacco Use Types Packs/Day Years Used Date Smoking Tobacco: Never Assessed Sex and Gender Information Value Date Recorded Sex Assigned at Not on file Legal Sex Male 2:31 PM CDT Gender Identity Not on file Sexual Orientation Not on file documented as of this encounter Miscellaneous Notes * Cerner Conversion Note - Jose ProviderMD - 01/11/2019 11:48 AM CAGE SUPERVISOR Patient: KINGSTON POLLOCK Age: 68 years Sex: Male : 1950 Associated Diagnoses: None Author: RAYMUNDO LYMAN APRN Subjective Chief complaint no cp or soa. wants to go home . Health Status Allergies: Allergic Reactions (Selected) No Known Allergies, Allergies (1) Active Reaction No Known Allergies None Documented Current medications: (Selected) Inpatient Medications Ordered Colace: 100 mg, Oral, BID Core.125 mg, Oral, BID Diovan: 40 mg, Oral, Daily Lipitor: 80 mg, Oral, At Bedtime Normal Saline 1,000 mL: 10 mL/Hr, IntraVENous Normal Saline Flush: 10 mL, IV Push, Q12H Normal Saline Flush: 10 mL, IV Push, See Comment, PRN: IV Use Tylenol: 650 mg, Oral, Q4H, PRN: Pain (Mild 1-3) Xarelto: 20 mg, Oral, [id number] Zofran: 4 mg, IV Push, Q6H, PRN: Nausea acetaminophen-HYDROcodone 325 mg-5 mg oral tablet: 1 Tab, Oral, Q4H, PRN: Pain (Moderate 4-6) aspirin: 81 mg, Oral, Daily clopidogrel: 75 mg, Oral, Daily insulin lispro sliding scale: Scale C:, SubCutaneous, AC and at Bedtime magnesium sulfate: 2 Gram, 50 mL, 25 mL/Hr, IV Piggyback, On-CALL, PRN: Other (See Comment) morphine: 2 mg, IV Push, Q5Min, PRN: Pain (Severe 7-10) potassium chloride 10 mEq/50 mL intravenous solution: 10 mEq, 100 mL, 100 mL/Hr, IV Piggyback, See Comment, PRN: Other (See Comment) potassium chloride 20 mEq oral tablet, extended release: 40 mEq, 2 Tab, Oral, On-CALL, PRN: Other (See Comment) potassium chloride 20 mEq oral tablet, extended release: 60 mEq, 3 Tab, Oral, On-CALL, PRN: Other (See Comment) Documented Medications Documented Levemir FlexPen 100 units/mL subcutaneous solution: 30 Units, SubCutaneous, At Bedtime Pravachol 20 mg oral tablet: 1 Tab, Oral, At Bedtime aspirin: 325 mg, Oral, Daily glipiZIDE 10 mg oral tablet, extended release: 1 Tab, Oral, BIDAC metformin 1000 mg oral tablet: 1 Tab, Oral, BID, 180 Tab, Home Medications (5) Active aspirin 325 mg, Oral, Daily glipiZIDE 10 mg oral tablet, extended release 10 mg = 1 Tab, Oral, BIDAC Levemir FlexPen 100 units/mL subcutaneous solution 30 Units, SubCutaneous, At Bedtime metformin 1000 mg oral tablet 1,000 mg = 1 Tab, Oral, BID Pravachol 20 mg oral tablet 20 mg = 1 Tab, Oral, At Bedtime , Medications (19) Active Scheduled: (9) #NaCl 0.9% *FLUSH* inj 10 mL 10 mL, IV Push, Q12H aspirin EC 81 mg tab 81 mg 1 Tab, Oral, Daily atorvastatin 80 mg Tab 80 mg 1 Tab, Oral, At Bedtime carvedilol 3.125 mg tab 3.125 mg 1 Tab, Oral, BID clopidogrel 75 mg tab 75 mg 1 Tab, Oral, Daily docusate sodium 100 mg cap 100 mg 1 Cap, Oral, BID insulin lispro 1 unit/0.01 mL inj Scale C:, SubCutaneous, AC and at Bedtime rivaroxaban 20 mg tab 20 mg 1 Tab, Oral, [id number] valsartan 40 mg tab 40 mg 1 Tab, Oral, Daily Continuous: (1) NaCl 0.9% 1,000 mL 1,000 mL, IntraVENous, 10 mL/Hr PRN: (9) #NaCl 0.9% *FLUSH* inj 10 mL 10 mL, IV Push, See Comment acetaminophen 325 mg tab 650 mg 2 Tab, Oral, Q4H acetaminophen/HYDROcodone 325/5 mg tab 1 Tab, Oral, Q4H magnesium sulfate 2 Gram 50 mL, IV Piggyback, On-CALL morphine 2 mg/1 ml inj 2 mg 1 mL, IV Push, Q5Min ondansetron 4 mg/2 mL inj 4 mg 2 mL, IV Push, Q6H potassium chloride 10 mEq 100 mL, IV Piggyback, See Comment potassium chloride CR 20 mEq tab 40 mEq 2 Tab, Oral, On-CALL potassium chloride CR 20 mEq tab 60 mEq 3 Tab, Oral, On-CALL Problem list: All Problems At risk for sleep apnea / IMO [id number] / Confirmed Atrial fibrillation / SNOMED CT 50167732 / Confirmed Pacemaker / SNOMED CT 6989882352 / Confirmed CAD (coronary artery disease) / SNOMED CT 80044896 / Confirmed CVA - Cerebrovascular accident / SNOMED CT 032165595 / Confirmed Diabetes mellitus / SNOMED CT 126093790 / Confirmed Hyperlipidemia / SNOMED CT 91378955 / Confirmed Hyperlipidemia / SNOMED CT 28832969 / Confirmed Hypertension / SNOMED CT 46780000 / Confirmed Prostate CA / SNOMED CT 3626343535 / Confirmed, Active Problems (10) At risk for sleep apnea Atrial fibrillation CAD (coronary artery disease) CVA - Cerebrovascular accident Diabetes mellitus Hyperlipidemia Hyperlipidemia Hypertension Pacemaker Prostate CA Objective VS/Measurements Vital Signs/Vital Measures 01/11/2019 10:00 EST Systolic Blood Pressure 108 mmHg Diastolic Blood Pressure 43 mmHg LOW Mean Arterial Pressure (MAP)-BMDI 61 Temperature Source Oral Temperature Mode Fahrenheit Temperature, Fahrenheit 98.5 Deg F Clinical Temperature, C 36.9 Deg C Heart Rate Monitored 84 bpm Respiratory Rate 18 Breaths/Min Oxygen Saturation 100 % 01/11/2019 7:03 EST Oxygen Therapy Mode Room air 01/11/2019 6:44 EST Systolic Blood Pressure 118 mmHg Diastolic Blood Pressure 64 mmHg Mean Arterial Pressure (MAP)-BMDI 78 Temperature Source Oral Temperature Mode Fahrenheit Temperature, Fahrenheit 97.8 Deg F Clinical Temperature, C 36.6 Deg C Heart Rate Monitored 84 bpm Respiratory Rate 16 Breaths/Min Oxygen Saturation 96 % Oxygen Therapy Mode Room air 01/10/2019 22:00 EST Systolic Blood Pressure 125 mmHg Diastolic Blood Pressure 63 mmHg Mean Arterial Pressure (MAP)-BMDI 77 Heart Rate Monitored 80 bpm Oxygen Saturation 95 % 01/10/2019 21:00 EST Systolic Blood Pressure 108 mmHg Diastolic Blood Pressure 66 mmHg Mean Arterial Pressure (MAP)-BMDI 76 Heart Rate Monitored 91 bpm Oxygen Saturation 97 % 01/10/2019 20:00 EST Systolic Blood Pressure 127 mmHg Diastolic Blood Pressure 60 mmHg Mean Arterial Pressure (MAP)-BMDI 76 Temperature, Fahrenheit 99.5 Deg F Clinical Temperature, C 37.5 Deg C Heart Rate Monitored 89 bpm Respiratory Rate 18 Breaths/Min Oxygen Saturation 96 % Oxygen Therapy Mode Room air 01/10/2019 19:00 EST Systolic Blood Pressure 148 mmHg HI Diastolic Blood Pressure 75 mmHg Temperature, Fahrenheit 101.8 Deg F HI Heart Rate Monitored 67 bpm Respiratory Rate 18 Breaths/Min 01/10/2019 18:00 EST Systolic Blood Pressure 147 mmHg HI Diastolic Blood Pressure 77 mmHg Heart Rate Monitored 101 bpm HI 01/10/2019 17:30 EST Systolic Blood Pressure 155 mmHg HI Diastolic Blood Pressure 93 mmHg HI Mean Arterial Pressure (MAP)-BMDI 105 Heart Rate Monitored 107 bpm HI Oxygen Saturation 89 % LOW 01/10/2019 17:00 EST Systolic Blood Pressure 163 mmHg HI Diastolic Blood Pressure 68 mmHg Mean Arterial Pressure (MAP)-BMDI 92 Heart Rate Monitored 94 bpm Oxygen Saturation 98 % 01/10/2019 16:45 EST Systolic Blood Pressure 154 mmHg HI Diastolic Blood Pressure 71 mmHg Mean Arterial Pressure (MAP)-BMDI 90 Heart Rate Monitored 90 bpm Oxygen Saturation 98 % 01/10/2019 16:30 EST Systolic Blood Pressure 167 mmHg HI Diastolic Blood Pressure 71 mmHg Mean Arterial Pressure (MAP)-BMDI 93 Heart Rate Monitored 88 bpm Oxygen Saturation 100 % 01/10/2019 16:15 EST Systolic Blood Pressure 176 mmHg HI Diastolic Blood Pressure 108 mmHg HI Mean Arterial Pressure (MAP)-BMDI 124 Heart Rate Monitored 88 bpm Oxygen Saturation 99 % 01/10/2019 16:00 EST Systolic Blood Pressure 168 mmHg HI Diastolic Blood Pressure 87 mmHg Mean Arterial Pressure (MAP)-BMDI 108 Heart Rate Monitored 79 bpm Oxygen Saturation 100 % 01/10/2019 15:50 EST Systolic Blood Pressure 172 mmHg HI Diastolic Blood Pressure 76 mmHg Mean Arterial Pressure (MAP)-BMDI 99 Heart Rate Monitored 79 bpm Oxygen Saturation 89 % LOW 01/10/2019 14:05 EST Systolic Blood Pressure 147 mmHg HI Diastolic Blood Pressure 68 mmHg Mean Arterial Pressure (MAP)-BMDI 87 Temperature Source Oral Temperature Mode Fahrenheit Temperature, Fahrenheit 97.5 Deg F Clinical Temperature, C 36.4 Deg C Heart Rate Monitored 84 bpm Respiratory Rate 16 Breaths/Min Oxygen Saturation 94 % Oxygen Therapy Mode Room air 01/10/2019 9:55 EST Systolic Blood Pressure 151 mmHg HI Diastolic Blood Pressure 61 mmHg Mean Arterial Pressure (MAP)-BMDI 83 Temperature Source Oral Temperature Mode Fahrenheit Temperature, Fahrenheit 98.6 Deg F Clinical Temperature, C 37 Deg C Heart Rate Monitored 84 bpm Respiratory Rate 18 Breaths/Min Oxygen Saturation 94 % Oxygen Therapy Mode Room air 01/10/2019 8:00 EST Oxygen Therapy Mode Room air 01/10/2019 7:05 EST Oxygen Therapy Mode Room air 01/10/2019 6:48 EST Systolic Blood Pressure 152 mmHg HI Diastolic Blood Pressure 68 mmHg Mean Arterial Pressure (MAP)-BMDI 88 Temperature Source Oral Temperature Mode Fahrenheit Temperature, Fahrenheit 97.8 Deg F Clinical Temperature, C 36.6 Deg C Heart Rate Monitored 72 bpm Respiratory Rate 18 Breaths/Min Oxygen Saturation 92 % LOW 01/10/2019 6:00 EST Oxygen Therapy Mode Room air , Measurements from flowsheet : Measurements 01/11/2019 5:00 EST Height Source Stated Height Entry Format [place]ood Height/Length, BHUTANESE (ft) 5 ft Height/Length BHUTANESE 9 Inch CLINICALHEIGHT 175.26 cm Routine Weight Source Standing scale Routine Weight Entry Format [place] Routine Weight, Pounds 162 lb Routine Weight, [place] 7 oz Routine Weight Calculation 73.84 kg Body Mass Index (BMI), Routine 24.04 kg/m2 Body Surface Area (BSA), Routine 1.89 m2 01/10/2019 5:00 EST Height Source Stated Height Entry Format [place]ood Height/Length, BHUTANESE (ft) 5 ft Height/Length BHUTANESE 9 Inch CLINICALHEIGHT 175.26 cm Routine Weight Source Standing scale Routine Weight Entry Format [place] Routine Weight, Pounds 165 lb Routine Weight, [place] 8 oz Routine Weight Calculation 75.23 kg Body Mass Index (BMI), Routine 24.49 kg/m2 Body Surface Area (BSA), Routine 1.91 m2 , Vitals Signs (last 24 hrs) Last Charted Minimum Maximum Temp 98.5 (JAN 11 10:00) 97.8 (JAN 11 06:44) H 101.8 (JAN 10 19:00) Mon HR 84 (JAN 11 10:00) 67 (JAN 10 19:00) 107 (JAN 10 17:30) Resp Rate 18 (JAN 11 10:00) 16 (JAN 10 14:05) 18 (JAN 10 19:00) SBP 108 (JAN 11 10:00) 108 (JAN 10 21:00) H 176 (JAN 10:15) DBP L 43 (JAN 11:00) L 43 (JAN 11 10:00) H 108 (JAN 10:15) MAP 61 (JAN 11 10:00) 61 (JAN 11 10:00) 124 (JAN 10 16:15) SpO2 100 (JAN 11 10:00) L 89 (JAN 10 15:50) 100 (JAN 10 16:00) General: Alert and oriented. Neck: No carotid bruit, No jugular venous distention. Respiratory: Lungs are clear to auscultation, Respirations are non-labored, Breath sounds are equal, Symmetrical chest wall expansion. Cardiovascular: No murmur, No gallop, Good pulses equal in all extremities, Normal peripheral perfusion, No edema, asensed vpaced rhythm . Gastrointestinal: Normal bowel sounds. Integumentary: Warm, Dry, [place]. Results Review General results Today's results 01/11/2019 5:37 EST WBC 7.1 K/uL RBC 4.76 Million/uL Hgb 14.1 Gram/dL Hct 41.2 % MCV 86.6 fL MCH 29.6 pg MCHC 34.2 Gram/dL Platelet Count 136 K/uL LOW Impression and Plan CAD with NSTEMI -DX stent -ef 35 by lvgram. has ppm insitu repeat limited echo here. plans of +\- LIFEVEST after -asa, plavix, lipitor, coreg, diovan. with new stent triple therapy for at least 1 month then can forego asa. cbc 2 weeks Prostate Ca -Following cardiac catheterization yesterday the family informed that he had prostate cancer and metastatic disease but they had not seen oncology yet. This is planned for them to see oncology in [facility]. AMS changes -ct head no acute process. htnbe -meds as above Afib with remote CVA -perm -on xarelto -chadsvas 5 dyslipidemia -continue lipitor addendum: 1500 limited echo ef 45%. dc home cvstable no life vest 48 minutes spent on this discharge documented in this encounter Plan of Treatment Not on file documented as of this encounter Visit Diagnoses Not on filedocumented in this encounter
--- OUTSIDE RECORDS SUMMARY | 2024-10-06 09:22 | XMS_ITS | Clinical Summary ---
Author Organization [facility] Address [address] [place] [address] Care Team Providers Care Electronics Engineering Manager Name Role Phone Eric Maria MD Primary Care Provider Allergies No known active allergies Medications clopidogrel (Plavix) 75 MG tablet Take 1 tablet by mouth daily. Active nitroglycerin (Nitrostat) 0.[address] 1 tablet under the tongue as needed. Active Xarelto 20 MG tablet Take 1 tablet by mouth daily. Active ramipril (Altace) 10 MG capsule TAKE ONE (1) CAPSULE ONCE DAILY 023 Active bicalutamide (Casodex) 50 MG chemo tablet Active leuprolide (Lupron) 11.25 MG injection Inject 11.25 mg into the muscle every 6 (six) months. Active furosemide (Lasix) 40 MG tablet Take 1 tablet by mouth daily. 023 Active fluticasone (Flonase) 50 MCG/ACT nasal spray Administer 1 spray into each nostril as needed for allergies. Active cyanocobalamin 1000 MCG tablet Take 1 tablet by mouth daily. Active spironolactone (Aldactone) 25 MG tablet Take 1 tablet by mouth daily. 023 Active pravastatin (Pravachol) 80 MG tablet TAKE ONE (1) TABLET EVERY DAY BY ORAL ROUTE. Active latanoprost (Xalatan) 0.005 % ophthalmic solution Administer 1 drop into both eyes nightly. Active insulin lispro (Admelog) 100 UNIT/ML injection Inject 0-5 Units under the skin 3 times a day with meals. See After Visit Summary for instructions on how to take your insulin. Active insulin lispro (Admelog) 100 UNIT/ML injection Inject 0-3 Units under the skin 2 times a night. See After Visit Summary for instructions on how to take your insulin. Active acetaminophen (Tylenol) 325 MG tablet Take 2 tablets by mouth every 4 hours as needed for fever (for temperature > 38.5). Under [place] law, monthly prescriptions (30 days) can be refilled at 25 days and three-month prescriptions (90 days) at 80 days. Please contact the insurance company with questions if refills are denied. Active bisacodyl (Dulcolax) 10 MG suppository Insert 1 suppository into the rectum daily. 12 suppository Active melatonin tablet Take 3 tablets by mouth at night as needed for sleep. Active metoprolol tartrate (Lopressor) 25 MG tablet Take 1 tablet by mouth 2 times a day. Active pantoprazole (Protonix) 40 MG EC tablet Take 1 tablet by mouth every 12 hours. Do not crush, chew, or split. Active polyethylene glycol (Miralax) 17 g packet Take 17 g by mouth 2 times a day. Active senna-docusate (Dhara-Colace) 8.6-50 MG tablet Take 2 tablets by mouth 2 times a day. Active albuterol 108 (90 Base) MCG/ACT inhaler INHALE TWO (2) PUFFS FOUR (4) (FOUR) TIMES A DAY. Active lisinopril 40 MG tablet 40 mg by oral route. Active Methylcobalami n [address] under the tongue. Active mirtazapine (Remeron) 15 MG tablet TAKE ONE HALF (1/2) TABLET BY MOUTH AT BEDTIME Active potassium chloride CR (K-Tab) 20 MEQ ER tablet Take 1 tablet every day by oral route for 14 days. 025 Active carbidopa-levo dopa (Sinemet) 25-100 MG tablet Take 1 tablet by mouth 3 times a day. 270 tablet 025 Active carbidopa-levo dopa (Sinemet) 25-100 MG tablet Take 1 tablet by mouth 3 (three) times a day. 180 tablet 3 024 2024 Discontinued sucralfate (Carafate) 1 GM/10ML suspension Take 10 mL by mouth 4 times a day before meals and nightly. 1200 mL 1 025 2024 Active Problems Problem Noted Date Diagnosed Date Shock 06/27/2024 Severe protein-calorie malnutrition 06/26/2024 GIB (gastrointestinal bleeding) 06/23/2024 Parkinson's disease without dyskinesia or fluctuating manifestations 11/03/2023 Encounters Date Type Department Care Team Description 09/13/2024 Refill [facility] [address], [address] [place] [address] Chris Stratton MBBS 09/12/2024 9:30 AM EDT Office Visit [facility] Specialties [address], [address] [place] [address] Jeff Longoria MD Pulmonary sarcoidosis (CMS/[facility]) (Primary Dx); Dyspnea on exertion 09/12/2024 8:00 AM EDT Ancillary Procedure [facility] Specialties [address]nd [place] [phone] Sarcoidosis; Shortness of breath 09/12/2024 Travel 09/10/2024 Travel 07/08/2024 1:21 PM EDT Anesthesia Event [facility] [address] [place] [address] Eladio Mercado MD Carney Tinsley, Amanda S, APRN, DNP 07/08/2024 Travel 06/23/2024 11:40 PM EDT - 07/10/2024 11:50 AM EDT Hospital Encounter [facility] [address] [place] [address] Kalema, MD [place] Jimmy S, DO Al-Abdouh, Ahmad A, MD Shafique, Anum, MD Foley, William S, MD Shock ([facility]) (Primary Dx); Parkinson's disease without dyskinesia or fluctuating manifestations (CMS/HCC); Sarcoidosis; Prostate cancer (CMS/HCC); Gastrointestinal hemorrhage, unspecified gastrointestinal hemorrhage type; Gastrointestinal hemorrhage with melena; Severe protein-calorie malnutrition (CMS/HCC); Coronary artery disease involving makah heart, unspecified vessel or lesion type, unspecified whether angina present; Myocardial infarction, unspecified MA type, unspecified artery (CMS/HCC); Pacemaker; Gastrointestinal hemorrhage associated with duodenal ulcer Discharge Disposition: Swing Bed from Last 3 Months Family History Medical History Relation Name Comments Stroke Maternal Grandfather Blindness Mother Louisa Olivas Heart failure Mother Louisa Olivas Kidney failure Mother Louisa Olivas Macular degeneration Mother Louisa Olivas Stroke Mother Louisa Olivas Other cancer Mother's Brother Other cancer Other Relation Name Status Comments Maternal Grandfather Mother Louisa Olivas Mother's Brother Other Social History Tobacco Use Types Packs/Day Years [...] and Family Not on file 06/24/2024 Attends [employer] Not on file 06/24 Active Member [...] any time in the past 12 m [facility], were you homeless or living in a care home (including now)? No 06/24/2024 Utilities Answer Date [...] Orientation Straight 12/02/2022 10 :35 AM EDT Last Filed Vital Signs Vital Sign Reading [...] Mass Index 21.1 09/12/2024 8:30 AM EDT Plan of Treatment Upcoming Encounters Date Type Department Care Team (Late st Contact Info) Description 10/24/2024 10:45 AM EDT Office Visit [facility] Medicine Specialties [address], [address] [place] [address] Jennifer Barber APRN, OMAR [address] [place] [phone] 11/21/2024 9:30 AM EDT Office Visit [facility] [address], [address] [place] [address] Chu Null MD [address] [place] [address] 09/11/2025 10:00 AM EDT Ancillary Procedure [facility] [address], [address] [place] [phone] 09/11/2025 11:00 AM EDT Office Visit [facility] [address], [address] [place] [phone] Jeff Longoria MD [address] [place] [phone] Health Maintenance Due Date Last Done Comments [facility]-Medicare Annual Wellness (AWV) 1950 [facility]-/Child/Adol SDOH Screenings 1950 MXC-COSIM-55 Vaccine (#1) 1954 Diabetes: Dental Exam 07/27/1959 [facility]-DTaP,Tdap,and Td Vaccine s (1 - Tdap) 1968 [facility]-Pneumococcal Vaccine: 50 + Years (1 of 2 - PCV) 1968 [facility]-Zoster Vaccines (1 of 2) 1968 CT Colonography 1994 FIT-DNA 1994 FIT 1994 FOBT 1994 Sigmoidoscopy 1994 [facility]-RSV Vaccine: 60+ Years o r (1 - 1-dose 75+ series) 2024 Gastroscopy (EGD) 08/20/2024 07/08/2024, 06/26/2024 [facility]-Influenza Vaccine (#1) 2024 [facility]-Diabetes: Hemoglobin A1C 12/22/2024 06/24/2024 [facility]- SDOH Screenings 12/24/2024 [facility]-Adult SDOH Screenings 12/24/2024 06/24/2024 [facility]-Depression Screening 09/12/2025 025, 09/12/2024 Colonoscopy 04/10/2034 04/10/2024 [facility]-Colorectal Cancer Screening 04/10/2034 [facility]-Hepatitis C Screening Completed 06/24/2024 HPV Vaccines Aged Out No longer eligi ble based on patient's age to complete this topic [facility]-HIB Vaccines Aged Out No longer e ligible based on patient's age to complete this topic [facility]-Hepatitis A Vaccines Aged Out No longer eligible based on patient's age to complete this topic [facility]-IPV Vaccines Aged Out No longer e ligible based on patient's age to complete this topic [facility]-Rotavirus Vaccines Aged Out No lo nger eligible based on patient's age to complete this topic Goals Goal Patient Goal Type Associated Problems Recent Progress Patient-Stated? Author Autogenerat ed Goal Care Plan Autogenerated Problem No Antonia Johnson, RN Autogenerat ed Goal Care Plan Autogenerated Problem No Antonia Johnson, primer press operator Procedure Name Priority Date/Time Associated Diagnosis Comments HC DIFFUSING CAPACITY - CARBON MONOXIDE DIFFUSING CAPACITY Routine 09/12/2024 8:36 AM EDT Sarcoidosis Shortness of breath POCT GLUCOSE METER UNSOLICITED RESULTS Routine 07/10/2024 7:54 AM EDT POCT GLUCOSE METER UNSOLICITED RESULTS Routine 07/09/2024 7:54 PM EDT POCT GLUCOSE METER UNSOLICITED RESULTS Routine 07/09/2024 5:18 PM EDT POCT GLUCOSE METER UNSOLICITED RESULTS Routine 07/09/2024 11:41 AM EDT OXYGEN THERAPY Routine 07/09/2024 8:00 AM EDT POCT GLUCOSE METER UNSOLICITED RESULTS Routine 07/09/2024 8:00 AM EDT MAGNESIUM, PLASMA Routine 07/09/2024 5:4 4 AM EDT COMPREHENSIVE METABOLIC PANEL, PLASMA Routine 07/09/2024 5:44 AM EDT CBC WITH AUTO DIFFERENTIAL Routine 07/09/2024 5:44 AM EDT POCT GLUCOSE METER UNSOLICITED RESULTS Routine 07/08/2024 8:22 PM EDT OXYGEN THERAPY Routine 07/08/2024 8:00 PM EDT POCT GLUCOSE METER UNSOLICITED RESULTS Routine 07/08/2024 6:43 PM EDT POCT GLUCOSE METER UNSOLICITED RESULTS Routine 07/08/2024 5:24 PM EDT POCT GLUCOSE METER UNSOLICITED RESULTS Routine 07/08/2024 1:48 PM EDT EGD Routine 07/08/2024 1:41 PM EDT Gastrointestinal hemorrhage, unspecified gastrointestinal hemorrhage type POCT GLUCOSE METER UNSOLICITED RESULTS Routine 07/08/2024 12:25 PM EDT POCT GLUCOSE METER UNSOLICITED RESULTS Routine 07/08/2024 11:50 AM EDT OXYGEN THERAPY Routine 07/08/2024 8:00 AM EDT POCT GLUCOSE METER UNSOLICITED RESULTS Routine 07/08/2024 7:58 AM EDT CBC W/O DIFFERENTIAL Routine 07/08/2024 6:40 AM EDT POCT GLUCOSE METER UNSOLICITED RESULTS Routine 07/07/2024 8:51 PM EDT OXYGEN THERAPY Routine 07/07/2024 8:00 PM EDT POCT GLUCOSE METER UNSOLICITED RESULTS Routine 07/07/2024 4:30 PM EDT POCT GLUCOSE METER UNSOLICITED RESULTS Routine 07/07/2024 12:09 PM EDT INSERT PERIPHERAL IV Routine 07/07/2024 11:40 AM EDT OXYGEN THERAPY Routine 07/07/2024 8:00 AM EDT POCT GLUCOSE METER UNSOLICITED RESULTS Routine 07/07/2024 7:59 AM EDT CBC WITH AUTO DIFFERENTIAL Routine 07/07/2024 3:49 AM EDT OXYGEN THERAPY Routine 07/06/2024 8:00 PM EDT POCT GLUCOSE METER UNSOLICITED RESULTS Routine 07/06/2024 7:50 PM EDT POCT GLUCOSE METER UNSOLICITED RESULTS Routine 07/06/2024 5:12 PM EDT POCT GLUCOSE METER UNSOLICITED RESULTS Routine 07/06/2024 11:59 AM EDT OXYGEN THERAPY Routine 07/06/2024 8:00 AM EDT POCT GLUCOSE METER UNSOLICITED RESULTS Routine 07/06/2024 7:55 AM EDT BASIC METABOLIC PANEL, PLASMA Routine 07/06/2024 4:43 AM EDT CBC WITH AUTO DIFFERENTIAL Routine 07/06/2024 4:43 AM EDT ACUTE HEPATITIS PANEL Routine 06/24/2024 12:17 AM EDT HEMOGLOBIN A1C Routine 06/24/2024 12:17 AM EDT from Last 3 Months or Most Recently Relevant to Health Maintenance Results * (ABNORMAL) Pulmonary function test (09/12/2024 8:36 AM EDT) [id number] 2.84(A) 2.87 - 4.99 L VYAIRE PFT FVC PRED 3.92 VYAIRE PFT FVC LLN 2.87 VYAIRE PFT FVCPREZSCORE -1.69 VYAIRE PFT FVCPRE%PRED 72 % % VYAIRE PFT FVC PREDAUTH [facility] GLI (2011) VYAIRE PFT FVC Z-SCORE -1.69 VYAIRE PFT FEV1 PRE 2.15 2.08 - 3.74 L VYAIRE PFT FEV1 PRED 2.94 VYAIRE PFT FEV1 LLN 2.08 VYAIRE PFT APK5PCRQZJCAZ -1.52 VYAIRE PFT FEV1_Pre%Pred 73 % % VYAIRE PFT FEV1 PREDAUTH [facility] GLI (2011) VYAIRE PFT FEV1 Z-SCORE -1.52 VYAIRE PFT FEV1/FVC PRE 75.58 61.31 - 88.08 % VYAIRE PFT ODS2NWJZQPA 75 VYAIRE PFT NYJ7TQNOMD 61 VYAIRE PFT XND9HOJTEGWAZJHI 0.02 VYAIRE PFT ZIY0JWXTRK%PRED 100 % % VYAIRE PFT DWX0ATBMXREO [facility] GLI (2011) VYAIRE PFT DIP4JTGVATVDX 0 VYAIRE PFT BQD40-40% PRE 1.79 0.88 - 4.02 L/s VYAIRE PFT MZJ58-78%_Pred 2.16 VYAIRE PFT UAO5564%LLN 0.88 VYAIRE PFT EMT3202%PREZSCORE -0.41 VYAIRE PFT XXM0600%PRE%PRED 83 % % VYAIRE PFT DEH9314%PREDAUTA[facility] (2011) VYAIRE PFT PEF PRE 4.44(A) 5.35 - 9.86 L/s VYAIRE PFT PEF PRED 7.61 VYAIRE PFT PEF LLN 5.35 VYAIRE PFT PEFPREZSCORE -2.31 VYAIRE PFT PEFPRE%PRED 58 % % VYAIRE PFT [facility]ED[facility] (1998) VYAIRE PFT VKSFKAZUJFGKQNPQ5ZJS 8.88(A) 17.76 - 32.27 ml/(min* mmHg) VYAIRE PFT DLCOSINGLEBREATH PRED 24.36 VYAIRE PFT DLCOSINGLEBREATH LLN 17.76 VYAIRE PFT DLCOSINGLEBREATH Z-SCORE -4.61 VYAIRE PFT DLCOSINGLEBREATH % PRED 36.5 % VYAIRE PFT DLCOSINGLEBREATH PRED[facility] TLCO GLI (2019) VYAIRE PFT DLCOSINGLEBREATH Z-SCORE -4.61 09/12/2024 8:27 AM EDT VYAIRE PFT RCXXVVVGLQYDYTIZX5UL E 8.88(A) 17.76 - 32.27 ml/(min* mmHg) VYAIRE PFT DLCOCSINGLEBREATH PRED 24.36 VYAIRE PFT DLCOCSINGLEBREATH LLN 17.76 VYAIRE PFT DLCOCSINGLEBREATH Z-SCORE -4.61 VYAIRE PFT DLCOCSINGLEBREATH % PRED 36.5 % VYAIRE PFT DLCOCSINGLEBREATH PREDU[facility] TLCO GLI (2019) VYAIRE PFT PTEWKM1FIF 2.13(A) 2.92 - 5.14 ml/(min* mmHg*L) VYAIRE PFT DLCOVAPRED 3.98 VYAIRE PFT DLCOVALLN 2.92 VYAIRE PFT DLCOVAZSCORE -3.02 VYAIRE PFT DLCOVA%PRED 53.5 % VYAIRE PFT DLCOVAPREDAUTH Stanojev[facility] TLCO GLI (2019) VYAIRE PFT DLCOVAZSCORE -3.02 09/12/2024 8:27 AM EDT VYAIRE PFT ICYKUZTGD0LNG 2.13(A) 2.92 - 5.14 ml/(min* mmHg*L) VYAIRE PFT DLCOC SB/VA PRED 3.98 VYAIRE PFT DLCOC SB/VA LLN 2.92 VYAIRE PFT DLCOC SB/VA Z-SCORE -3.02 VYAIRE PFT DLCOC SB/VA % PRED 53.5 % VYAIRE PFT DLCOC SB/VA PREDAUT Stanojevic TLCO GLI (2019) VYAIRE PFT DLCOC SB/VA Z-SCORE -3.02 09/12 8:27 AM EDT VYAIRE PFT PRSYKYFTLHTWOE8VQZ 4.17(A) 4.94 - 7.45 L VYAIRE PFT VASINGLEBREATH PRED 6.15 VYAIRE PFT VASINGLEBREATH LLN 4.94 VYAIRE PFT VASINGLEBREATH Z-SCORE -2.77 VYAIRE PFT VASINGLEBREATH % PRED 67.9 % VYAIRE PFT VASINGLEBREATH PREDAUT Stanojevic TLCO GLI (2019) VYAIRE PFT VASINGLEBREATH Z-SCORE -2.77 09/12/2024 8:27 AM EDT VYAIRE PFT SYTBYXDCWHNFMJI2WLM 2.60(A) 2.87 - 4.99 L VYAIRE PFT IVCSINGLEBREATH PRED 3.92 VYAIRE PFT IVCSINGLEBREATH LLN 2.87 VYAIRE PFT IVCSINGLEBREATH Z-SCORE -2.07 VYAIRE PFT IVCSINGLEBREATH % PRED 66.3 % VYAIRE PFT IVCSINGLEBREATH PREDAUTTSAILE [facility]ENTER[facility] (2011) VYAIRE PFT ISATU% VCMAX PRE 87.23 % VYAIRE PFT TLC SB PRE 4.32(A) 5.39 - 8.38 L VYAIRE PFT TLCSINGLEBREATH PRED 6.87 VYAIRE PFT TLCSINGLEBREATH LLN 5.39 VYAIRE PFT TLCSINGLEBREATH Z-SCORE -2.85 VYAIRE PFT TLCSINGLEBREATH % PRED 62.9 % VYAIRE PFT TLCSINGLEBREATH PREDAUTUc Health Lung volumes GLI (2019)__ VYAIRE PFT HB PRE 14.60 g(Hb)/dL VYAIRE PFT YFF6CNO 4.95(A) 5.39 - 8.38 L VYAIRE PFT TLCPRED 6.87 VYAIRE PFT TLCLLN 5.39 VYAIRE PFT TLCULN 8.38 VYAIRE PFT TLCZSCORE -2.14 VYAIRE PFT TLC%PRED 72.0 % [facility] TLCPREDBridge[facility] Hospital Lung volumes GLI (2019)__ VYAIRE PFT VC0PRE 2.98 2.87 - 4.99 L VYAIRE PFT VCPRED 3.92 VYAIRE PFT VCLLN 2.87 VYAIRE PFT VCULN 4.99 VYAIRE PFT VCZSCORE -1.47 VYAIRE PFT VC%PRED 76.0 % VYAIRE PFT VCPREDAUTBayhealth Hospital, Sussex Campusr GLI (2011) VYAIRE PFT IC0PRE 1.81(A) 2.06 - 3.85 L VYAIRE PFT ICPRED 2.98 VYAIRE PFT ICLLN 2.06 VYAIRE PFT ICULN 3.85 VYAIRE PFT IC Z-SCORE -2.08 VYAIRE PFT IC%PRED 61.0 % VYAIRE PFT ICPREDAUT [facility] Lung volumes GLI (2019)__ VYAIRE PFT HPGGXEVF9QBO 3.14 2.65 - 5.23 L VYAIRE PFT FRCPLETH PRED 3.80 VYAIRE PFT FRCPLETH LLN 2.65 VYAIRE PFT FRCPLETH ULN 5.23 VYAIRE PFT FRCPLETH Z-SCORE -0.90 VYAIRE PFT FRCPLETH % PRED 82.6 % VYAIRE PFT FRCPLETH PREDAUTH [facility] Lung volumes GLI (2019)__ VYAIRE PFT IGQ6LBU 1.17 0.35 - 2.42 L VYAIRE PFT [...] [facility] Lung volumes GLI (2019)__ VYAIRE PFT RV%YDF8LFB 39.80 25.64 - 50.70 % VYAIRE PFT [...] underwent pulmonary function testing today at the [facility]. The patient underwent spirometry, lung volumes by [...] There is a significant decrease in DLCO. Jeff Longoria MD PFT ORDERABLES Final Result * (ABNORMAL) POCT glucose meter (07/10/2024 7:54 AM EDT) Only the most recent of20 resultswithin the time period is included. POCT Glucose 139(H) 74 - 99 mg/dL 07/10/2024 8:01 AM EDT [facility] Comment:Accuracy of a glucos e result obtained from a capillary whole blood specimen relies upon adequate, non-compromised capillary blood flow. If the capillary glucose result is not consistent with the patient's clinical signs and symptoms, glucose testing should be repeated with either an arterial or venous sample on the glucometer or sent to the main labortory for testing. Comment 07/10/2024 8:01 AM EDT [facility] Maxillofacial Prosthetics Dentist ID Alobwede Jimenezdario Moosecelsa Brenda 07/10/2024 8:01 AM EDT [facility] Device ID [id number] 07/10/2024 8:01 AM EDT [facility] Specimen Type POC Capillary 07/10/2024 8:01 AM EDT [facility] Blood Capillary blood specimen / Unknown 07/10/2024 7:54 AM EDT 07/10/2024 8:01 AM EDT us Miguel Fong MD LAB POINT OF CARE TE ST DOCKED DEVICE UNSOLICITED RESULTS Final Result [facility] [address] [id number] * (ABNORMAL) CBC and Differential (07/09/2024 5:44 AM EDT) Only the most recent of3 resultswithin the time period is included. WBC Count 3.39(L) 3.70 - 10.30 10*3/uL LAB HEMATOLOGY METHOD 07/09/2024 6:01 AM EDT [facility] RBC Count 2.94(L) 4.60 - 6.10 10*6/uL LAB HEMATOLOGY METHOD 07/09/2024 6:01 AM EDT [facility] HGB 8.6(L) 13.7 - 17.5 g/dL LAB HEMATOLOGY METHOD 07/09/2024 6:01 AM EDT [facility] HCT 26.9(L) 40.0 - 51.0 % LAB HEMATOLOGY METHOD 07/09/2024 6:01 AM EDT [facility] Platelet Count 144(L) 155 - 369 10*3/uL LAB HEMATOLOGY METHOD 07/09/2024 6:01 AM EDT [facility] MCV 92 79 - 98 fL LAB HEMATOLOGY METHOD 07/09/2024 6:01 AM EDT [facility] MCH 29.3 26.0 - 32.0 pg LAB HEMATOLOGY METHOD 07/09/2024 6:01 AM EDT [facility] MCHC 32.0 30.7 - 35.5 g/dL LAB HEMATOLOGY METHOD 07/09/2024 6:01 AM EDT [facility] RDW 15.5(H) 11.5 - 14.5 % LAB HEMATOLOGY METHOD 07/09/2024 6:01 AM EDT [facility] MPV 9.4 8.8 - 12.5 fL LAB HEMATOLOGY METHOD 07/09/2024 6:01 AM EDT [facility] nRBC 0.0 <=0.0 per 100 WBCs LAB HEMATOLOGY METHOD 07/09/2024 6:01 AM EDT [facility] Differential Type Automated LAB HEMATOLOGY METHOD 07/09/2024 6:01 AM EDT [facility] Neutrophils % 71 % LAB HEMATOLOGY METHOD 07/09/2024 6:01 AM EDT [facility] Lymphocytes % 14 % LAB HEMATOLOGY METHOD 07/09/2024 6:01 AM EDT [facility] Monocytes % 12 % LAB HEMATOLOGY METHOD 07/09/2024 6:01 AM EDT [facility] Eosinophils % 2 % LAB HEMATOLOGY METHOD 07/09/2024 6:01 AM EDT [facility] Basophils % 1 % LAB HEMATOLOGY METHOD 07/09/2024 6:01 AM EDT [facility] Immature Granulocytes % 0 % LAB HEMATOLOGY METHOD 07/09/2024 6:01 AM EDT [facility] Neutrophils Absolute 2.40 1.60 - 6.10 10*3/uL LAB HEMATOLOGY METHOD 07/09/2024 6:01 AM EDT [facility] Lymphocytes Absolute 0.46(L) 1.20 - 3.90 10*3/uL LAB HEMATOLOGY METHOD 07/09/2024 6:01 AM EDT [facility] Monocytes Absolute 0.42 0.30 - 0.90 10*3/uL LAB HEMATOLOGY METHOD 07/09/2024 6:01 AM EDT [facility] Eosinophils Absolute 0.08 0.00 - 0.50 10*3/uL LAB HEMATOLOGY METHOD 07/09/2024 6:01 AM EDT [facility] Basophils Absolute 0.02 0.00 - 0.10 10*3/uL LAB HEMATOLOGY METHOD 07/09/2024 6:01 AM EDT [facility] Immature Granulocytes Absolute 0.01 0.00 - 0.06 10*3/uL LAB HEMATOLOGY METHOD 07/09/2024 6:01 AM EDT [facility] Blood Venous blood specimen / Unknown Venipuncture / Unknown 07/09/2024 5:44 AM EDT 07/09/2024 5:52 AM EDT Narrative [facility] - 07/09/2024 6:01 AM EDT Therapeutic decision making should be based on absolute values, rather than percentages. us Vanessa Apollo [facility] BLOOD ORDERABLES Final Resu lt [facility] [address] [place] [address] * (ABNORMAL) Magnesium, Plasma (07/09/2024 5:44 AM EDT) Magnesium, Plasma 1.8(L) 1.9 - 2.4 mg/dL 07/09/2024 6:23 AM EDT [facility] Blood Venous blood specimen / Unknown Venipuncture / Unknown 07/09/2024 5:44 AM EDT 07/09/2024 5:53 AM EDT us Vanessa Apollo [facility] BLOOD ORDERABLES Final Resu lt [facility] [address] [place] [address] * (ABNORMAL) Comprehensive Metabolic Panel, Plasma (07/09/2024 5:44 AM EDT) Glucose, Plasma 126(H) 74 - 99 mg/dL 07/09/2024 6:23 AM EDT [facility] BUN, Plasma 8 8 - 23 mg/dL 07/09/2024 6:23 AM EDT [facility] Creatinine, Plasma 0.77 0.70 - 1.20 mg/dL 07/09/2024 6:23 AM EDT [facility] BUN/Creatinine Ratio 10 07/09/2024 6:23 AM EDT [facility] Sodium, Plasma 137 136 - 145 mmol/L 07/09/2024 6:23 AM EDT [facility] Potassium, Plasma 3.6 3.6 - 4.9 mmol/L 07/09/2024 6:23 AM EDT [facility] Chloride, Plasma 105 97 - 107 mmol/L 07/09/2024 6:23 AM EDT [facility] CO2, Plasma 23 22 - 29 mmol/L 07/09/2024 6:23 AM EDT [facility] Anion Gap 9 6 - 16 mmol/L 07/09/2024 6:23 AM EDT [facility] Total Calcium, Plasma 8.9 8.9 - 10.2 mg/dL 07/09/2024 6:23 AM EDT [facility] Total Protein 5.2(L) 6.3 - 7.9 g/dL 07/09/2024 6:23 AM EDT [facility] Albumin, Plasma 3.3(L) 3.5 - 5.2 g/dL 07/09/2024 6:23 AM EDT [facility] AST, Plasma 14 10 - 50 U/L 07/09/2024 6:23 AM EDT [facility] ALT, Plasma <5(L) 10 - 50 U/L 07/09/2024 6:23 AM EDT [facility] Alkaline Phosphatase, Plasma 154(H) 40 - 115 U/L 07/09/2024 6:23 AM EDT [facility] Total Bilirubin, Plasma 0.6 0.2 - 1.1 mg/dL 07/09/2024 6:23 AM EDT [facility] eGFRcr 93.9 mL/min/1.7 3m*2 07/09/2024 6:23 AM EDT [facility] Comment:Reported eGFRcr in m L/min/1.73m2 is based the CKD-EPI 2020 equation that does not use a race coefficient. Blood Venous blood specimen / Unknown Venipuncture / Unknown 07/09/2024 5:44 AM EDT 07/09/2024 5:53 AM EDT us Vanessa Apollo [facility] BLOOD ORDERABLES Final Resu lt [facility] [address] [place] [address] * EGD ROSE SOMMER; 07/08/2024 (07/08/2024 1:41 PM EDT) Anatomical Region Laterality Modality Endoscopy Narrative 07/08/2024 3:58 PM EDT Table formatting from the original result was not included. Impression: No blood, bleeding lesions or lesions with stigmata of bleeding seen throughout the esophagus, stomach and visualized duodenum The upper third of the esophagus, middle third of the esophagus and lower third of the esophagus appeared normal. No blood, bleeding lesions or lesions with high-risk stigmata throughout the esophagus. Mild, localized erythematous mucosa in the GE junction (38 cm from the incisors); no bleeding was observed The cardia, fundus of the stomach and body of the stomach appeared normal. Previous ulcers in the gastric antrum and prepyloric stomach were now clean-based erosions. No blood was seen throughout the stomach. Marked improvement in area of ulceration within duodenal bulb. Prior ulceration along sweep now superficial with no high risk features of bleeding. Duodenal bulb ulcer now consistent with erosion. Images obtained during endoscopic procedure unable to be immediately linked to procedure documentation due to tech difficulties Post Procedure Diagnosis Peptic ulcer disease Recommendations Other - Return to previous room and level of care - Recommend continuing high dose PPI BID - Recommend addition of carafate to help promote ulcer healing - Defer to primary regarding indications to continue both DOAC with antiplatelet agent - Restart previous diet immediately - Monitor for post-procedure complications abdominal pain, fever, gastrointestinal bleeding and call highway traffic control technician GI if present. - Findings and recommendations were discussed with patient immediately following the procedure in PACU - Findings and recommendations to be conveyed to primary team. Indication Gastrointestinal hemorrhage, unspecified gastrointestinal hemorrhage type Medications See anesthesia record for anesthesia administered medications. Staff Staff Role Sofia Mcdowell CRNA [employer] REPRESENTATIVE Yannick Miller Endo Paramedic Supervisor Rose Sommer MD Proceduralist Deirdre Kwok RN Endo Nurse Eladio Mercado MD Anesthesiologist Rachel Tejeda DO Fellow Preprocedure A history and physical has been performed, and patient medication allergies have been reviewed. The patient's tolerance of previous anesthesia has been reviewed. The risks and benefits of the procedure and the sedation options and risks were discussed with the patient. All questions were answered and informed consent obtained. Details of the Procedure The patient underwent monitored anesthesia care, which was administered by an anesthesia professional. The patient's blood pressure, heart rate, level of consciousness, oxygen and respirations were monitored throughout the procedure. The scope was introduced through the mouth and advanced to the second part of the duodenum. Retroflexion was performed in the cardia. The patient experienced no blood loss. The procedure was not difficult. The patient tolerated the procedure well. There were no apparent adverse events. Attestation I was present for the entire procedure Specimens No specimens were documented in this log. Findings No blood, bleeding lesions or lesions with stigmata of bleeding seen throughout the esophagus, stomach and visualized duodenum The upper third of the esophagus, middle third of the esophagus and lower third of the esophagus appeared normal. No blood, bleeding lesions or lesions with high-risk stigmata throughout the esophagus. Mild, localized erythematous mucosa in the GE junction (38 cm from the incisors); no bleeding was observed The cardia, fundus of the stomach and body of the stomach appeared normal. Previous ulcers in the gastric antrum and prepyloric stomach were now clean-based erosions. No blood was seen throughout the stomach. Marked improvement in area of ulceration within duodenal bulb. Prior ulceration along sweep now superficial with no high risk features of bleeding. Duodenal bulb ulcer now consistent with erosion. Images obtained during endoscopic procedure unable to be immediately linked to procedure documentation due to tech difficulties us Vanessa Bustillos MD GI PROCEDURE ORDERABLES Final R esult * (ABNORMAL) CBC W/O Differential (07/08/2024 6:40 AM EDT) WBC Count 3.37(L) 3.70 - 10.30 10*3/uL LAB HEMATOLOGY METHOD 07/08/2024 6:54 AM EDT [facility] RBC Count 2.88(L) 4.60 - 6.10 10*6/uL LAB HEMATOLOGY METHOD 07/08/2024 6:54 AM EDT [facility] HGB 8.1(L) 13.7 - 17.5 g/dL LAB HEMATOLOGY METHOD 07/08/2024 6:54 AM EDT [facility] HCT 26.2(L) 40.0 - 51.0 % LAB HEMATOLOGY METHOD 07/08/2024 6:54 AM EDT [facility] Platelet Count 135(L) 155 - 369 10*3/uL LAB HEMATOLOGY METHOD 07/08/2024 6:54 AM EDT [facility] MCV 91 79 - 98 fL LAB HEMATOLOGY METHOD 07/08/2024 6:54 AM EDT [facility] MCH 28.1 26.0 - 32.0 pg LAB HEMATOLOGY METHOD 07/08/2024 6:54 AM EDT [facility] MCHC 30.9 30.7 - 35.5 g/dL LAB HEMATOLOGY METHOD 07/08/2024 6:54 AM EDT [facility] RDW 15.5(H) 11.5 - 14.5 % LAB HEMATOLOGY METHOD 07/08/2024 6:54 AM EDT [facility] MPV 8.5(L) 8.8 - 12.5 fL LAB HEMATOLOGY METHOD 07/08/2024 6:54 AM EDT [facility] nRBC 0.0 <=0.0 per 100 WBCs LAB HEMATOLOGY METHOD 07/08/2024 6:54 AM EDT [facility] Blood Venous blood specimen / Unknown Venipuncture / Unknown 07/08/2024 6:40 AM EDT 07/08/2024 6:47 AM EDT Vanessa Bustillos MD LAB BLOOD ORDERABLES Final Resu lt [facility] [address] [place] [address] * PERIPHERAL IV (SMARTFORM LINK) (07/07/2024 11:40 AM EDT) Narrative Christa Patterson RN - 07/07/2024 11:40 AM EDT Christa Patterson RN 07/07/2024 11:41 AM Insert peripheral IV Performed by: Christa Patterson RN Authorized by: Vanessa Bustillos MD Hand hygiene: Hand hygiene performed prior to insertion Inserted using aseptic techniques: Yes Preparation: Skin prepped with chg Orientation: Right Location: Forearm Catheter placed: Peripheral IV Catheter size: 20g/2.00in Line Technique: Ultrasound Guidance Number of attempts: 1 IV flushes: Without difficulty and positive blood return noted and IV luer locked Patient tolerance: Patient tolerated the procedure well and there were no complications Patient comfort measures used: Distraction and position of comfort IV site covered with: Transparent semipermeable dressing Education provided to: Patient Comments: Pertinent imaging sent via PACS Vanessa Bustillos MD IV THERAPY ORDERABLES Final Res ult * (ABNORMAL) Basic Metabolic Panel, Plasma (07/06/2024 4:43 AM EDT) Glucose, Plasma 131(H) 74 - 99 mg/dL 07/06/2024 6:10 AM EDT [facility] BUN, Plasma 7(L) 8 - 23 mg/dL 07/06/2024 6:10 AM EDT [facility] Creatinine, Plasma 0.80 0.70 - 1.20 mg/dL 07/06/2024 6:10 AM EDT [facility] BUN/Creatinine Ratio 9 07/06/2024 6:10 AM EDT [facility] Sodium, Plasma 138 136 - 145 mmol/L 07/06/2024 6:10 AM EDT [facility] Potassium, Plasma 3.8 3.6 - 4.9 mmol/L 07/06/2024 6:10 AM EDT [facility] Chloride, Plasma 104 97 - 107 mmol/L 07/06/2024 6:10 AM EDT [facility] CO2, Plasma 25 22 - 29 mmol/L 07/06/2024 6:10 AM EDT [facility] Anion Gap 9 6 - 16 mmol/L 07/06/2024 6:10 AM EDT [facility] Total Calcium, Plasma 9.3 8.9 - 10.2 mg/dL 07/06/2024 6:10 AM EDT [facility] eGFRcr 92.9 mL/min/1.7 3m*2 07/06/2024 6:10 AM EDT [facility] Comment:Reported eGFRcr in m L/min/1.73m2 is based the CKD-EPI 2020 equation that does not use a race coefficient. Blood Venous blood specimen / Unknown Venipuncture / Unknown 07/06/2024 4:43 AM EDT 07/06/2024 5:40 AM EDT us Vanessa Apollo G[facility] LAB BLOOD ORDERABLES Final Resu lt [facility] [address] [place] [address] * Acute Hepatitis Panel (06/24/2024 12:17 AM EDT) Hepatitis B Surf Antigen Negative Negative 06/24/2024 1:35 AM EDT [facility] Hepatitis C Antibody Negative Negative 06/24/2024 1:35 AM EDT [facility] Hepatitis A Antibody IgM Negative Negative 06/24/2024 1:35 AM EDT [facility] Hepatitis B Core Antibody IgM Negative Negative 06/24/2024 1:35 AM EDT [facility] Blood Venous blood specimen / Unknown Venipuncture / Unknown 06/24/2024 12:17 AM EDT 06/24/2024 12:31 AM EDT Shemar K Melvi PA LAB BLOOD ORDERABLES Final R esult Performing Organization Address City/[facility]/ZIP Co de Phone Number [facility] [address] [place] [address] * Hemoglobin A1c (06/24/2024 12:17 AM EDT) Hemoglobin A1c 5.3 <5.7 % 06/24/2024 7:20 AM EDT [facility] Blood Venous blood specimen / Unknown Venipuncture / Unknown 06/24/2024 12:17 AM EDT 06/24/2024 12:31 AM EDT Narrative [facility] - 06/24/2024 7:20 AM EDT HA1C Interpretive Data: Diagnosis of Diabetes: Diabetic > or = 6.5% Pre-diabetic 5.7 to 6.4% Non-diabetic < or = 5.6% Glycemic Targets for Type I and Type II Diabetics: Non- Adults <7.0% Adults <6.0% Children and Adolescents <7.5% Source: [place] [employer]. Standards of medical care in diabetes,2017. Diabetes Care.2017:40 (suppl 1):S1-S135. Shemar K Melvi PA LAB BLOOD ORDERABLES Final R esult Performing Organization Address City/[facility]/ZIP Co de Phone Number [facility] [address] [place] [address] from Last 3 Months or Most Recently Relevant to Health Maintenance Additional Health Concerns Active Problems Noted Date Diagnosed Date Autogenerated Problem 06/25/2024 Autogenerated Problem 07/08/2024 Insurance [place]ICA[place] [facility] MEDIC[facility] Advance Directives * Full Code (Latest Code Status on File) Date Activated Date Inactivated Comments 06/25/2024 11:20 AM 07/10/2024 1:55 PM Question Answer Comments I have reviewed the capacity from the link above and, if needed, have updated to appropriate status: Yes Care Teams Electronics Engineering Manager Relationship Specialty Start Date End Date Eric Maria MD [address] [place] [address] PCP - General 11/04/20
--- OUTSIDE RECORDS SUMMARY | 2024-10-06 09:22 | XMS_ITS | Clinical Summary ---
Author Organization [employer] ([place], [place], [place], [place]) Address [address] [place] [address] Care Team Providers Care Congressional Representative Name Role Phone Unavailable Primary Care Provider [...]
--- OUTSIDE RECORDS SUMMARY | 2024-10-06 09:22 | XMS_ITS | Encounter Summary ---
Author Organization [facility] Address [address] [place] [address] Care Team Providers Care Manager Games Name Role Phone Eric Maria MD Primary Care Provider Encounter Details Date Type Department Care Team (Late st Contact Info) Description 05/27/2024 Orders Only External Location [address] [place] [address] Provider, External Social History Tobacco Use Types [...] Description 10/24/2024 10:45 AM EDT Office Visit [facility] [address] [place] [address] Jennifer Barber, CROWN IRONER, DNP [address] [place] [phone] 11/21/2024 9:30 AM EDT Office Visit [facility] [address] [place] [address] Chu Null MD [address] [place] [address] 09/11/2025 10:00 AM EDT Ancillary Procedure [facility] [address] [place] [address] 09/11/2025 11:00 AM EDT Office Visit [facility] [address] [place] [address] Jeff Longoria MD [address] [place] [address] documented as of this encounter Procedures Procedure Name Priority Date/Time Associated Diagnosis Comments XR OUTSIDE IMAGES 05/27/2024 5:05 PM EDT documented in this encounter Results * XR OUTSIDE IMAGES (05/27/2024 5:05 PM EDT) Anatomical Region Laterality Modality Radiographic Melly ging 05/27/2024 5:05 PM EDT External Provider IMG XR PROCEDURES [...] as of this encounter Care Teams Manager Games Relationship Specialty Start Date End Date Eric Maria MD [address] [place] [address] PCP - General 11/04/20 documented as of this encounter
--- OUTSIDE RECORDS SUMMARY | 2024-10-06 09:22 | XMS_ITS | Encounter Summary ---
Author Organization [facility] ([place], [place], [place], [place]) Address [address] [place] [address] Care Team Providers Care Electronic News Gathering Camera Person Name Role Phone Unavailable Primary Care Provider Unavailabl e Encounter Details Date Type Department Care Team (Late st Contact Info) Description 01/11/2019 Transcribed Document [facility] Family Medicine [address] [place] [address] ProviderJose MD [address] [place], [place] [id number] Social History Tobacco Use Types Packs/Day Years Used Date Smoking Tobacco: Never Assessed Sex and Gender Information Value Date Recorded Sex Assigned at Not on file Legal Sex Male 2:31 PM CDT Gender Identity Not on file Sexual Orientation Not on file documented as of this encounter Miscellaneous Notes * Cerner Conversion Note - Historical ProviderMD - 01/11/2019 5:00 AM PURCHASING ADMINISTRATOR Chart Check - Review Order Profile Entered On: 01/11/2019 5:12 EST Performed On: 01/11/2019 5:00 EST by Rowan Salcedo RN Chart Check Powerplans Initiated/Discontinued as Appropriate : Yes All Active Orders Reviewed : Yes Rowan Salcedo RN - 01/11/2019 5:12 EST Electronically signed by Az [facility] Conversion Chief Electrician Cerner at 06/23/2022 12:05 PM CDT documented in this encounter Plan of Treatment Not on file documented as of this encounter Visit Diagnoses Not on filedocumented in this encounter
--- OUTSIDE RECORDS SUMMARY | 2024-10-06 09:22 | XMS_ITS | Encounter Summary ---
Author Organization [employer] ([place], [place], [place], [place]) Address [address] [place] [address] Care Team Providers Care Conduit Bender Name Role Phone Unavailable Primary Care Provider Unavailabl e Encounter Details Date Type Department Care Team (Late st Contact Info) Description 01/09/2019 Transcribed Document [facility] Family Medicine [address] [place] [address] ProviderJose MD [address] [id number] Social History Tobacco Use Types Packs/Day Years Used Date Smoking Tobacco: Never Assessed Sex and Gender Information Value Date Recorded Sex Assigned at Not on file Legal Sex Male 2:31 PM CDT Gender Identity Not on file Sexual Orientation Not on file documented as of this encounter Miscellaneous Notes * Cerner Conversion Note - Historical ProviderMD - 01/09/2019 4:03 PM PRODUCT DEVELOPMENT ASSISTANT Admission History, Adult Entered On: 01/09/2019 16:47 EST Performed On: 01/09/2019 16:03 EST by Jailene Calvillo RN Advance Directive Patient has Advance Directive *Q : No, patient refuses Advance Directive information aJilene Calvillo RN - 01/09/2019 19:02 EST Anesthesia/Transfusion History Family History of Anesthesia Reaction : No prior transfusion(s) Blood Transfusion Acceptable to Patient : Yes Transfusion History : Prior anesthesia without reaction Family History of Anesthesia Reaction : None Jailene Calvillo RN - 01/09/2019 19:02 EST Anticipated Discharge Needs Discharge To, Anticipated : Home Anticipated Discharge Needs at This Time : None Jailene Calvillo RN - 01/09/2019 19:02 EST Functional Assessment Living Situation : Home Patient Lives With : Spouse Persons Assisting Patient at Home : Spouse Current Home Treatments : None Jailene Calvillo RN - 01/09/2019 19:02 EST General Info Support Person/Pt Rep Name : NOEMI Contact Password : Nas Support Person/Pt Rep Contact Information : [phone] Want Family/Rep/Phys Notified of Admit : No Emergency Contact #1 : Noemi Pollock Emergency Contact #1 Emergency Contact #1 Relationship : spouse Emergency Contact #2 : Minal Bernardo Emergency Contact #2 Emergency Contact #2 Relationship : daughter Primary Language : Persian Preferred Communication Mode : Verbal Communication Barrier : None Jailene Calvillo RN - 01/09/2019 19:02 EST Fall Risk Scales ABCs Fall Injury Risk Identification : Coagulation ABC Fall Injury Risk : Moderate to high injury risk RODRIGUEZ Hx Falls Immediate/Within 3 Months : No Rodriguez Secondary Diagnosis : No RODRIGUEZ Use of Ambulatory Aid : None RODRIGUEZ IV Therapy or IV Access : Yes Rodriguez Gait/Transferring : Normal, bedrest, immobile Rodriguez Mental Status : Oriented to own ability Rodriguez Fall Risk Score : 20 RODRIGUEZ Fall Scale Risk Level : 0-24 Low Risk [place] Fall Interventions : Adequate lighting, Assistive devices within reach, Bed in low position, Call device within reach, Fall prevention handout/education per facility policy, Frequent orientation to call device, Frequent orientation to surroundings, Hourly comfort/safety rounds, Non-slip footwear, Personal items within reach, Reinforced to call for assistance before getting out of bed, Room free of clutter/spills, Upper side-rails up, Wheels locked, Wires/Cords secured Jailene Calvillo RN - 01/09/2019 19:02 EST Health Histories Smoking Status : Never (less than 100 in lifetime; none in last 30 days) Smokeless Tobacco Status : Smokeless tobacco user within last 30 days Desires Tobacco Cessation Medication : No Reason for No Tobacco Cessation Medication : Refuses FDA approved medications Jailene Calvillo RN - 01/09/2019 19:02 EST Social History (As Of: 01/09/2019 19:09:11 EST) Tobacco: Smoking Status Chew. (Last Updated: 12/31/2013 20:56:41 EDT by Yvonne Palafox RN) Alcohol: Use in Last 12 Months: Yes. Date/Time of Last Drink: less than 6 beers a year. (Last Updated: 01/01/2014 00:10:06 EDT by SNEHAL CIFUENTES PA) Substance Abuse: Drug Use Hx: No. Use in Last 12 Months: No. (Last Updated: 01/01/2014 00:10:11 EDT by SNEHAL CIFUENTES PA) Nutrition/Health: Caffeine intake amount: moderate. (Last Updated: 01/01/2014 00:10:16 EDT by SNEHAL CIFUENTES PA) Home/Environment: Living situation: Home/Independent. (Last Updated: 01/01/2014 00:09:59 EDT by SNEHAL CIFUENTES PA) Height and Weight, Clinical Dosing Height Source : Stated Height Entry Format : Doyle Height, Feet : 5 ft(Converted to: 152 cm, 60 Inch) Height, Inches : 9 Inch(Converted to: 0 ft 9 Inch, 22.86 cm) Clinical Height : 175.26 cm Body Surface Area (BSA) : 1.92 m2 Body Mass Index : 24.9 kg/m2 (HI) [place] Body Weight : 70 kg Jailene Calvillo RN - 01/09/2019 19:02 EST Weight Source : Standing scale Weight Entry Format : Doyle Clinical Dosing Weight : 76.53 kg Weight, Pounds : 168 lb Weight, Ounces : 6 oz Jailene Calvillo RN - 01/09/2019 16:47 EST Infectious Disease History Infectious Disease History : None Fever/Chills Last 48 Hours : No Travel To Regions with Travel Advisories : No Travel Outside [place] Within Last 30 Days : No Contact With Traveler to Advisory Region : No Tuberculosis Symptoms : None Jailene Calvillo RN - 01/09/2019 19:02 EST Influenza Vaccine Asmt, Adult Previous Vaccines from Immunization Schedule : No qualifying data available. Influenza Immunization, Current Season : No Inactivated Flu Vaccine Contraindications : No contraindications to inactivated influenza vaccine Transplant Workup/Recent Transplant : No Order for Influenza Vaccine : Declined Vaccination Jailene Calvillo RN - 01/09/2019 19:02 EST Pneumococcal Vaccine Previous Vaccines from Immunization Schedule : No qualifying data available. Pneumonia Immunization Received : No Pneumococcal Risk Assessment < Age 65 : N/A- Patient 65 years of age or older Pneumococcal Vaccine Contraindications : No contraindications to pneumococcal vaccine Transplant Workup/Recent Transplant : No Order for Pneumococcal Vaccine : Declined Vaccination Jailene Calvillo RN - 01/09/2019 19:02 EST Nutrition History Feeding Ability : Independent Adaptive Feeding Equipment : Regular Eating Poorly Due to Decreased Appetite : Yes Unplanned Weight Loss in Past 3-6 Months : Yes Unplanned Weight Loss Amount : 14-23 lbs/6.4-10.5 kg Malnutrition Screening Tool Total(mal) : 3 Malnutrition Screening Tool Risk Level : Patient at risk Jailene Calvillo RN - 01/09/2019 19:02 EST Psychosocial History Does Someone Depend on You for Care? : No Currently in Unsafe Situation : No Tried to Harm Yourself in the Past? : No Thoughts of Harming/Killing Yourself : No Jailene Calvillo RN - 01/09/2019 19:02 EST Sleep Apnea Risk Assmt Hx of Obstructive Sleep Apnea Diagnosis : No Snore Loudly : No Tired, Fatigued, or Sleepy During Day : No Observed Stopping Breathing During Sleep : No Have/Are Being Treated for Hypertension : No BMI Greater Than 35 kg/m2 : No Age over 50 Years Old : Yes Neck Circumference Greater Than 40 cm : No Gender Male : Yes STOP-BANG Sleep Apnea Risk Level Score : 2 Jailene Calvillo RN - 01/09/2019 19:02 EST Valuables and Belongings Valuables and Belongings : No personal items Jailene Calvillo RN - 01/09/2019 19:02 EST documented in this encounter Plan of Treatment Not on file documented as of this encounter Visit Diagnoses Not on filedocumented in this encounter
--- OUTSIDE RECORDS SUMMARY | 2024-10-06 09:22 | XMS_ITS | Encounter Summary ---
Author Organization [facility] Address [address] [place] [address] Care Team Providers Care Hands And Dial Inspector Name Role Phone Eric Maria MD Primary Care Provider Encounter Details Date Type Department Care Team (Late st Contact Info) Description 05/25/2024 Orders Only External Location [address] [place] [address] Provider, External Social History Tobacco Use Types [...] Description 10/24/2024 10:45 AM EDT Office Visit [facility] [address] [place] [address] Jennifer Barber, PERSONAL LINES INSURANCE ADVISOR, DNP [address] [place] [address] 11/21/2024 9:30 AM EDT Office Visit [facility] [address], [address] [place] [address] Chu Null MD [address] [place] [address] 09/11/2025 10:00 AM EDT Ancillary Procedure [facility] [address], [address] [place] [address] 09/11/2025 11:00 AM EDT Office Visit [facility] [address] [place] [address] Jeff Longoria MD [address] [place] [address] documented as of this encounter Procedures Procedure Name Priority Date/Time Associated Diagnosis Comments XR MSK OUTSIDE IMAGES 05/25/2024 6:08 PM EDT documented in this encounter Results * XR MSK OUTSIDE IMAGES (05/25/2024 6:08 PM EDT) Anatomical Region Laterality Modality Radiographic Melly ging 05/25/2024 6:08 PM EDT External Provider IMG XR PROCEDURES [...] documented as of this encounter Care Teams Hands And Dial Inspector Relationship Specialty Start Date End Date Eric Maria MD [address] [place] [address] PCP - General 11/04/20 documented as of this encounter
--- OUTSIDE RECORDS SUMMARY | 2024-10-06 09:22 | XMS_ITS | Encounter Summary ---
Author Organization [facility] Address [address] [place] [address] Care Team Providers Care Layout Inspector Name Role Phone Eric Maria MD Primary Care Provider Encounter Details Date Type Department Care Team (Latest Contact Info) Description 09/12/2024 Travel Social History Tobacco Use Types Packs/Day Years [...] and Family Not on file 06/24/2024 Attends [employer] Not on file 06/24 Active Member [...] any time in the past 12 m [facility], were you homeless or living in a prison (including now)? No 06/24/2024 Utilities Answer Date [...] things Not at all 09/12/2024 9:04 AM Jessica Flores Feeling down, depressed, or hopeless Not at [...] Description 10/24/2024 10:45 AM EDT Office Visit [facility] [address] [place] [address] Jennifer Barber APRN, DNP [address] [place] [address] 11/21/2024 9:30 AM EDT Office Visit [facility] [address] [place] [address] Chu Null MD [address] [place] [address] 09/11/2025 10:00 AM EDT Ancillary Procedure [facility] [address] [place] [address] 09/11/2025 11:00 AM EDT Office Visit [facility] [address] [place] [address] Jeff Longoria MD [address] [place] [address] documented as of this encounter Goals Goal [...] documented as of this encounter Care Teams Layout Inspector Relationship Specialty Start Date End Date Eric Maria MD [address] [place] [address] PCP - General 11/04/20 documented as of this encounter
--- OUTSIDE RECORDS SUMMARY | 2024-10-06 09:22 | XMS_ITS | Encounter Summary ---
Author Organization [facility] Address [address] [place] [address] Care Team Providers Care Open Source Developer Name Role Phone Eric Maria MD Primary Care Provider Encounter Details Date Type Department Care Team (Latest Contact Info) Description 09/10/2024 Travel Social History Tobacco Use Types Packs/Day [...] and Family Not on file 06/24/2024 Attends [employer] Not on file 06/24 Active Member [...] any time in the past 12 m [facility], were you homeless or living in a retirement (including now)? No 06/24/2024 Utilities Answer Date [...] [facility] [address] [place] [address] Jennifer Barber APRN, DNP [address] [facility] [address] [place] [address] 11/21/2024 9:30 AM EDT Office Visit [facility] [address] [place] [address] Chu Null MD [address] [place] [address] 09/11/2025 10:00 AM EDT Ancillary Procedure [facility] Medicine [facility] [address] [place] [address] 09/11/2025 11:00 AM EDT Office Visit [facility] [id number] [place] [address] Jeff Longoria MD [address] [place] [address] documented as of this encounter [...] documented as of this encounter Care Teams Open Source Developer Relationship Specialty Start Date End Date Eric Maria MD [address] [place] [id number] PCP - General 11/04/20 documented as of this encounter
--- OUTSIDE RECORDS SUMMARY | 2024-10-06 09:22 | XMS_ITS | Encounter Summary ---
Author Organization [employer] ([place], [place], [place], [place]) Address [address] [place] [address] Care Team Providers Care Sat Act Instructor Name Role Phone Unavailable Primary Care Provider Unavailabl e Encounter Details Date Type Department Care Team (Late st Contact Info) Description 01/10/2019 Transcribed Document [facility] [place] Family Medicine [address] [place] [address] ProviderJose MD [address] [place] [address] Social History Tobacco Use Types Packs/Day Years Used Date Smoking Tobacco: Never Assessed Sex and Gender Information Value Date Recorded Sex Assigned at Not on file Legal Sex Male 2:31 PM CDT Gender Identity Not on file Sexual Orientation Not on file documented as of this encounter Miscellaneous Notes * [employer]ner Conversion Note - Historical ProviderMD - 01/10/2019 5:00 AM WATCH AND CLOCK MAKER AND REPAIRER Chart Check - Review Order Profile Entered On: 01/10/2019 4:47 EST Performed On: 01/10/2019 5:00 EST by Analy Mckeon RN Chart Check Powerplans Initiated/Discontinued as Appropriate : Yes All Active Orders Reviewed : Yes Analy Mckeon RN - 01/10/2019 4:47 EST documented in this encounter Plan of Treatment Not on file documented as of this encounter Visit Diagnoses Not on filedocumented in this encounter
--- OUTSIDE RECORDS SUMMARY | 2024-10-06 09:22 | XMS_ITS | Encounter Summary ---
Author Organization [employer] ([place], [place], [place], [place]) Address [address] [place] [address] Care Team Providers Care Painter Sign Maintenance Name Role Phone Unavailable Primary Care Provider Unavailabl e Encounter Details Date Type Department Care Team (Late st Contact Info) Description 01/09/2019 Transcribed Document [facility] [place] [address] [place] [address] ProviderJose MD [address] [place] [address] Social History Tobacco Use Types Packs/Day Years Used Date Smoking Tobacco: Never Assessed Sex and Gender Information Value Date Recorded Sex Assigned at Not on file Legal Sex Male 2:31 PM CDT Gender Identity Not on file Sexual Orientation Not on file documented as of this encounter Miscellaneous Notes * Cerner Conversion Note - Jose ProviderMD - 01/09/2019 4:39 PM LEAD INFORMATICA DEVELOPER Nutrition Assessment Entered On: 01/10/2019 11:30 EST Performed On: 01/09/2019 11:30 EST by Sindy Bradley, Clinical Dietitian Nutrition Assessment Current Nutrition Regimen Comment : 01/10: Received consult for MST noting decreased appetite and weight loss in the range of 14-23#. Pt states no weight loss currently reports lately is 165-168# but states he lost 25# in the early spring and family in room explain Pt was evaluated at in Spring 2018 for possible prostate cancer but Dr told him he wasn't a candidate for chemo or radiation so Pt declined biopsy to confirm it. She reports this admit CT scan today shows cancer in his chest now (RD unable to find this) and Dr's don't expect him to live very long. Pt states he is eating good, reports hospital food isn't his country cooking (likes beef, country ham, cornbread, canned peaches and pears, etc). He declined all supplements. No physical signs of muscle or fat wasting observed at this time. Pt does not appear malnurished at this time, states weight stable recently, reports good appeitte and intakes with 's cooking, declined supplements Dr has supplement ordered so encouraged Pt to try it. He is awaitng a cardiac cath planned for later this afternoon and hopes will discharge soon. RN confirms report of possible prostate cancer. Dx: chest pain, non-STEMI PMH: CAD, questionable hx of [place], HTN, DM type 2, hypercholesterolemia, CVA Meds: aspirin, statin, Colace, SSI, valsartan, PRN pain, IV heparin Labs: glucose 214, Troponin 23.7 Skin: no skin breakdown GI: LBM 01/06, active BS Diet: cardiac, 60gm CHO, ensure complete BID Intake: being established Ht:5'9 Wt: 168.6# (01/09), 165.8# (01/10) BMI: 24.9 IBW/%IBW: 160#/104% Sindy Bradley Clinical Dietitian - 01/10/2019 14:33 EST Nutrition Learning Needs : Consistent carbohydrate diet, Heart healthy diet Nutrition Learning Needs Comment : Diet education provided and reviewed, RD contact information given Sindy Bradley Clinical Dietitian - 01/10/2019 11:51 EST Nutrition Assessment Reason : Automatic referral Sindy Bradley Clinical Dietitian - 01/10/2019 11:30 EST Nutrition Diagnoses Oral or Nutrition Support Intake : Inadequate oral intake Oral or Nutr Support Intake Related To : decreased appetite Oral or Nutr Support Intake Evidenced by : he does't care for hospital food as much as his wifes cooking, no intakes documented yet. Oral or Nutrition Support Intake Status : Active Nutrient Intake : Increased nutrient needs Nutrient Intake Related to : clinical condition (cancer) Nutrient Intake As Evidenced by : Pt reports prostate cancer with metastasis per family member in room, encourage oral nutrition supplement use. Nutrient Intake Status : Active Increased Nutrient Needs Comment : kcal/protein Sindy Bradley Clinical Dietitian - 01/10/2019 14:33 EST Nutrition Interventions Meals and Snacks : Carbohydrate-modified diet, Fat-modified diet, Sodium modified diet Nutrition Supplement Therapy : Commercial beverage Sindy Bradley Clinical Dietitian - 01/10/2019 11:51 EST Monitoring/Evaluation Energy Intake : Total energy intake Food Intake : Amount of food Protein Intake : Total protein Weight Status : Weight Maintanence Gastrointestinal Function : Bowel Function Sindy Bradley Clinical Dietitian - 01/10/2019 11:51 EST Nutrition Recommendations Dietitian Recommendations : 1. Continue diet per MD, encourage meal intakes and ensure complete BID. Goal: po intakes > 50% + supplement use 2. Monitor Wt at least 1-2x/week Goal: no significant Wt loss High risk Sindy Bradley Clinical Dietitian - 01/10/2019 11:51 EST Education Topics, Nutrition Nutrition Educaiton Needs : Encourage Pt to eat what he enjoys if he truly has cancer dx that is untreatable. He checks glucose twice a day and uses oral medication, SSI, and levemir at home. He denied any dietary questions Sindy Bradley Clinical Dietitian - 01/10/2019 14:33 EST Sindy Bradley Clinical Dietitian - 01/10/2019 14:33 EST Nutrition Education Grid Consistent Carbohydrate Diet : Verbalizes understanding Heart Healthy Diet : Verbalizes understanding Sindy Bradley Clinical Dietitian - 01/10/2019 11:51 EST documented in this encounter Plan of Treatment Not on file documented as of this encounter Visit Diagnoses Not on filedocumented in this encounter
--- OUTSIDE RECORDS SUMMARY | 2024-10-06 09:22 | XMS_ITS | Encounter Summary ---
Author Organization [employer] ([place], [place], [place], [place]) Address [address] [place] [address] Care Team Providers Care State Director Name Role Phone Unavailable Primary Care Provider Unavailabl e Encounter Details Date Type Department Care Team (Late st Contact Info) Description 01/09/2019 Transcribed Document [facility] [place] Family Medicine [address] [place] [address] ProviderJose MD [address] [place], [place] [id number] Social History Tobacco Use Types Packs/Day Years Used Date Smoking Tobacco: Never Assessed Sex and Gender Information Value Date Recorded Sex Assigned at Not on file Legal Sex Male 2:31 PM CDT Gender Identity Not on file Sexual Orientation Not on file documented as of this encounter Miscellaneous Notes * Cerner Conversion Note - Historical ProviderMD - 01/09/2019 4:39 PM FOOD SERVICE SUPERVISOR Education-Cardiac Topics Entered On: 01/09/2019 21:13 EST Performed On: 01/09/2019 16:39 EST by Jailene Calvillo RN Teaching/Learning Assessment Barriers To Learning : None evident Individuals Taught : Patient, Spouse Readiness to Learn : Uninterested Jailene Calvillo RN - 01/09/2019 21:13 EST Electronically signed by [facility] Conversion Silver Miner Blasting Steve at 06/23/2022 11:59 AM CDT documented in this encounter Plan of Treatment Not on file documented as of this encounter Visit Diagnoses Not on filedocumented in this encounter
--- OUTSIDE RECORDS SUMMARY | 2024-10-06 09:22 | XMS_ITS | Encounter Summary ---
Author Organization [employer] ([place], [place], [place], [place]) Address [address] [place] [address] Care Team Providers Care Reefer Engineer Name Role Phone Unavailable Primary Care Provider Unavailabl e Encounter Details Date Type Department Care Team (Late st Contact Info) Description 01/09/2019 Transcribed Document [facility] [place] [address] [place] [address] ProviderJose MD [address] [place], [place] [id number] Social History Tobacco Use Types Packs/Day Years Used Date Smoking Tobacco: Never Assessed Sex and Gender Information Value Date Recorded Sex Assigned at Not on file Legal Sex Male 2:31 PM CDT Gender Identity Not on file Sexual Orientation Not on file documented as of this encounter Miscellaneous Notes * Cerner Conversion Note - Historical ProviderMD - 01/09/2019 4:39 PM BEAM DEPARTMENT SUPERVISOR Cardiac and Pulmonary Outpatient [facility] Entered On: 01/17/2019 13:47 EST Performed On: 01/09/2019 16:39 EST by ADELAIDE CHOI RN Cardiac and Pulmonary Outpatient [facility] Cardiac Outpatient Rehab Evaluation Comment : Order faxed to [facility] due to pts location. ADELAIDE CHOI RN - 01/17/2019 13:46 EST Electronically signed by [facility] Conversion Director Of Front Office Cerner at 06/23/2022 12:00 PM CDT documented in this encounter Plan of Treatment Not on file documented as of this encounter Visit Diagnoses Not on filedocumented in this encounter
--- OUTSIDE RECORDS SUMMARY | 2024-10-06 09:22 | XMS_ITS | Encounter Summary ---
Author Organization [employer] ([place], [place], [place], [place]) Address [address] [place] [address] Care Team Providers Care Emergency Specialist Name Role Phone Unavailable Primary Care Provider Unavailabl e Encounter Details Date Type Department Care Team (Late st Contact Info) Description 01/09/2019 Transcribed Document [facility] [place] [address] [place] [address] ProviderJose MD [address] [place], [place] [address] Social History Tobacco Use Types Packs/Day Years Used Date Smoking Tobacco: Never Assessed Sex and Gender Information Value Date Recorded Sex Assigned at Not on file Legal Sex Male 2:31 PM CDT Gender Identity Not on file Sexual Orientation Not on file documented as of this encounter Miscellaneous Notes * Cerner Conversion Note - Jose ProviderMD - 01/09/2019 4:39 PM BILL HIKER Pain Assessment Entered On: 01/09/2019 21:12 EST Performed On: 01/09/2019 19:59 EST by Jailene Calvillo, RN Intervention Information: acetaminophen-HYDROcodone Performed by Jailene Calvillo, RN on 01/09/2019 18:59:00 EST acetaminophen-HYDROcodone,1Tab Oral,Pain (Moderate 4-6) Pain Assessment Pain Assessment : Follow-up assessment Jailene Calvillo RN - 01/09/2019 21:12 EST documented in this encounter Plan of Treatment Not on file documented as of this encounter Visit Diagnoses Not on filedocumented in this encounter
--- OUTSIDE RECORDS SUMMARY | 2024-10-06 09:22 | XMS_ITS | Encounter Summary ---
Author Organization [employer] ([place], [place], [place], [place]) Address [address] [place] [address] Care Team Providers Care Mechanical Designer Name Role Phone Unavailable Primary Care Provider Unavailabl e Encounter Details Date Type Department Care Team (Late st Contact Info) Description 01/10/2019 Transcribed Document [facility] [place] Family Medicine [address] [place] [address] ProviderJose MD [address] [place], [place] [id number] Social History Tobacco Use Types Packs/Day Years Used Date Smoking Tobacco: Never Assessed Sex and Gender Information Value Date Recorded Sex Assigned at Not on file Legal Sex Male 2:31 PM CDT Gender Identity Not on file Sexual Orientation Not on file documented as of this encounter Miscellaneous Notes * Cerner Conversion Note - Jose Stokes MD - 01/10/2019 4:12 PM CERTIFICATION AND SELECTION SPECIALIST Patient: KINGSTON POLLOCK Age: 68 years Sex: Male : 1950 Associated Diagnoses: None Author: GERARDO RICHARDSON MD-CAR Postcardiac catheterization note: After I discuss the Finding and the findings of angioplasty and stenting with the family, the and the family members to told me that he had a prostate cancer, the CT scan done at [facility] suggested that he had metastatic disease and may need further evaluation for cancer. We have not seen any oncologist, to have discussed with them that his life expectancy is less than a year that he would not get an ICD. We will also further evaluate him with a transthoracic echo to assess the LV function as outpatient. I've explained in detail about the LifeVest function and need, we will check it with the company if he can wear LifeVest with the dual-chamber pacemaker that according to the family he is dependant. documented in this encounter Plan of Treatment Not on file documented as of this encounter Visit Diagnoses Not on filedocumented in this encounter
--- OUTSIDE RECORDS SUMMARY | 2024-10-06 09:22 | XMS_ITS ---
[employer] Care Plan Created on: October 01, 2024 Gerry Pollock : 1950 Sex: Male Author Organization [employer] Address [address] [place] [phone] Phone Health Concerns Health Status CKD 3 Health Concerns None
--- OUTSIDE RECORDS SUMMARY | 2024-10-06 09:23 | XMS_ITS | Encounter Summary ---
Author Organization [employer] ([place], [place], [place], [place]) Address [address] [place] [address] Care Team Providers Care Director Economic Name Role Phone Unavailable Primary Care Provider Unavailabl e Encounter Details Date Type Department Care Team (Late st Contact Info) Description 01/10/2019 Transcribed Document [facility] [place] Family Medicine [address] [place] [address] ProviderJose MD [address] [place] [address] Social History Tobacco Use Types Packs/Day Years Used Date Smoking Tobacco: Never Assessed Sex and Gender Information Value Date Recorded Sex Assigned at Not on file Legal Sex Male 2:31 PM CDT Gender Identity Not on file Sexual Orientation Not on file documented as of this encounter Miscellaneous Notes * Cerner Conversion Note - Historical ProviderMD - 01/10/2019 7:02 AM [employer] Event Note Entered On: 01/10/2019 7:03 EST Performed On: 01/10/2019 7:02 EST by Analy Mckeon RN Event Note Event Date/Time : 03/05/2019 7:02 EST Description of Event : Heparin ptt drawn at 0551 not resulted at this time. Spoke to christine in the lab. Analy cMkeon RN - 01/10/2019 7:02 EST documented in this encounter Plan of Treatment Not on file documented as of this encounter Visit Diagnoses Not on filedocumented in this encounter
--- OUTSIDE RECORDS SUMMARY | 2024-10-06 09:23 | XMS_ITS | Encounter Summary ---
Author Organization [employer] ([place], [place], [place], [place]) Address [address] [place] [address] Care Team Providers Care Production Director Name Role Phone Unavailable Primary Care Provider Unavailabl e Encounter Details Date Type Department Care Team (Late st Contact Info) Description 01/10/2019 Transcribed Document [facility] [place] Family Medicine [address] [place] [address] ProviderJose MD [address] [place], [place] [id number] Social History Tobacco Use Types Packs/Day Years Used Date Smoking Tobacco: Never Assessed Sex and Gender Information Value Date Recorded Sex Assigned at Not on file Legal Sex Male 2:31 PM CDT Gender Identity Not on file Sexual Orientation Not on file documented as of this encounter Miscellaneous Notes * Cerner Conversion Note - Historical ProviderMD - 01/10/2019 9:[address] [facility] Charges Entered On: 01/10/2019 10:31 EST Performed On: 01/10/2019 9:24 EST by HECTOR GONZALEZ, PT [facility] Charges Physical Therapy Screen : 1 HECTOR GONZALEZ, PT - 01/10/2019 10:24 EST documented in this encounter Plan of Treatment Not on file documented as of this encounter Visit Diagnoses Not on filedocumented in this encounter
--- OUTSIDE RECORDS SUMMARY | 2024-10-06 09:23 | XMS_ITS | Encounter Summary ---
Author Organization [employer] ([place], [place], [place], [place]) Address [address] [place] [address] Care Team Providers Care Research Anthropologist Name Role Phone Unavailable Primary Care Provider Unavailabl e Encounter Details Date Type Department Care Team (Late st Contact Info) Description 01/10/2019 Transcribed Document [facility] Family Medicine [facility] [place] [address] ProviderJose MD [address] [place] [address] Social History Tobacco Use Types Packs/Day Years Used Date Smoking Tobacco: Never Assessed Sex and Gender Information Value Date Recorded Sex Assigned at Not on file Legal Sex Male 2:31 PM CDT Gender Identity Not on file Sexual Orientation Not on file documented as of this encounter Miscellaneous Notes * Cerner Conversion Note - Jose Stokes MD - 01/10/2019 3:28 PM REAL ESTATE OPERATIONS MANAGER DATE OF SERVICE: 01/10/2019 PROCEDURES: 1. Left heart catheterization, coronary angiography, left ventriculogram. 2. Successful percutaneous transluminal coronary angioplasty and stenting of the diagonal branch. 3. Intravascular ultrasound study of the diagonal branch and the left anterior descending. INDICATION: This is a 68-year-old male with non-ST elevation myocardial infarction, agreeable to proceed with heart catheterization, understanding fully the procedure and risks that was discussed with him in detail. 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 A 6-Gambian artery sheath was placed. Landon catheter was advanced, selectively engaged to left and right coronary artery and angiograms were performed. The pigtail catheter was advanced into the left ventricle. Pressures were recorded. Left ventriculogram was performed using 36 cc of contrast PSI. Pigtail was withdrawn. Pullback pressure recorded. Patient was then prepared for angioplasty. Minerva left guide was engaged to left main coronary artery. Patient received Angiomax bolus and Angiomax drip. Jose blue wire was advanced distally into the diagonal branch, which has a 99% proximal stenosis with MARY grade 2 flow. A 2-0 twelve was brought in and the lesion was predilated x2 and then stented with a 2.5 x 16 Synergy drug-eluting stent. The balloon was withdrawn. Cineangiogram revealed excellent result. Guidewire and guiding catheter were withdrawn and transradial band was applied. Adequate hemostasis maintained. No complications noted. Total amount of blood loss less than 5 cc. CONSCIOUS SEDATION: Patient received 2 mg of Versed, 25 mcg IV fentanyl. START TIME: 1451. END TIME: 1520. FINDINGS: 1. Hemodynamics: LV systolic pressure is 110 and diastolic pressure of 12. No gradient was noted across the aortic valve. 2. Left main coronary artery: Left main coronary artery is angiographically normal giving rise to LAD and circ. 3. Left anterior descending coronary artery: The left anterior descending coronary artery has mild luminal irregularities. Maximum stenosis less than 30%. Diagonal branch has a 99% stenosis with MARY grade 2 flow. 4. Circumflex coronary artery: The circumflex coronary artery is nondominant and has a mid 40% stenosis. Obtuse marginal branch has luminal irregularities. 5. Right coronary artery: Right coronary artery is dominant with diffuse luminal irregularities. Maximum stenosis is being 40% in the midportion, bifurcating into the PDA and posterolateral branch. The PDA branch has a 50% stenosis. Posterolateral branch has luminal irregularities. 6. Left ventriculogram: The left ventriculogram revealed ejection fraction 35%. Anteroapical wall hypokinesis, apical dyskinesis noted. 7. Successful PTCA and stenting of the diagonal branch: Successful PTCA and stenting of the diagonal branch were performed reducing the lesion from 99% to 0%. Flow improved from MARY grade 2 to MARY grade 3. Total lesion length was 15 mm, reduced with Synergy drug-eluting stent. No clot was visualized. 8. Intravascular ultrasound study of the LAD and diagonal IVUS revealed that the stent in the LAD is well deployed. LAD was also evaluated with IVUS in its proximal to midportion to rule out any plaque rupture because of the significant amount of damage that he has received his LV function. IMPRESSION: 1. Non-ST elevation myocardial infarction. 2. Severe diagonal stenosis. 3. Successful percutaneous transluminal coronary angioplasty and stenting of the diagonal branch. 4. Ischemic cardiomyopathy. RECOMMENDATIONS: The patient will be aggressively treated with the guideline directed medical therapy because of his ischemic cardiomyopathy and will have a LifeVest placed. If his ejection fraction does not improve in 3 months, then question of ICD will be raised. /[id number] MD BLAISE Krishnan/TOM / BLAISE / MODL /[id number] Electronically signed by Shay Bernardo Conversion Aviation Operations Specialist Cerner at 06/23/2022 11:55 AM CDT documented in this encounter Plan of Treatment Not on file documented as of this encounter Visit Diagnoses Not on filedocumented in this encounter
--- OUTSIDE RECORDS SUMMARY | 2024-10-06 09:23 | XMS_ITS | Encounter Summary ---
Author Organization [employer] ([place], [place], [place], [place]) Address [address] [place] [address] Care Team Providers Care Inpatient Nursing Aide Name Role Phone Unavailable Primary Care Provider Unavailabl e Encounter Details Date Type Department Care Team (Late st Contact Info) Description 01/10/2019 Transcribed Document [facility] [address] [place] [address] ProviderJose MD [address] [place], [place] [address] Social History Tobacco Use Types Packs/Day Years Used Date Smoking Tobacco: Never Assessed Sex and Gender Information Value Date Recorded Sex Assigned at Not on file Legal Sex Male 2:31 PM CDT Gender Identity Not on file Sexual Orientation Not on file documented as of this encounter Miscellaneous Notes * Cerner Conversion Note - Jose ProviderMD - 01/10/2019 10:02 AM VACUUM WORKER UM Authorization Entered On: 01/10/2019 10:04 EST Performed On: 01/10/2019 10:02 EST by KATHARINE MOREAU Rn-Utilization Review Primary Insurance Authorization Authorization and Policy Numbers : Insurance 1 Health Plan: R Policy Number: [id number] Authorization Number: Insurance 2 Health Plan: MEDICARE Policy Number: [id number] Authorization Number: Insurance Primary Name : R Authorization Status-Primary : Pending clinicals Authorized Service Begin Date-Primary : 01/11/2019 EST Authorization Comments-Primary : Auth initiated on [facility] portal. Awaiting call for clinicals. Historical Authorization Comments-Primary : No Authorization Comments Found KATHARINE MOREAU Rn-Utilization Review - 01/10/2019 10:02 EST Electronically signed by Shay Bernardo Conversion Wildlife Biostation Research Ecologist Cerner at 06/23/2022 11:53 AM CDT documented in this encounter Plan of Treatment Not on file documented as of this encounter Visit Diagnoses Not on filedocumented in this encounter
--- OUTSIDE RECORDS SUMMARY | 2024-10-06 09:23 | XMS_ITS | Encounter Summary ---
Author Organization [employer] ([place], [place], [place], [place]) Address [address] [place] [address] Care Team Providers Care Motel Keeper Name Role Phone Unavailable Primary Care Provider Unavailabl e Encounter Details Date Type Department Care Team (Late st Contact Info) Description 01/10/2019 Transcribed Document [facility] Family Medicine [address] [place] [address] ProviderJose MD [address] [place] [address] Social History Tobacco Use Types Packs/Day Years Used Date Smoking Tobacco: Never Assessed Sex and Gender Information Value Date Recorded Sex Assigned at Not on file Legal Sex Male 2:31 PM CDT Gender Identity Not on file Sexual Orientation Not on file documented as of this encounter Miscellaneous Notes * Cerner Conversion Note - Historical ProviderMD - 01/10/2019 8:05 AM MEDICAL OFFICE TECHNOLOGIST Supervisor Microbiology Technologists Details Entered On: 01/10/2019 8:05 EST Performed On: 01/10/2019 8:05 EST by Adeline Vasquez RN Order Details Transport Mode Order Detail : Wheelchair Isolation Precautions Order Detail : Standard Precautions Order Detail : N/A IV Order Detail : 1 Oxygen Order Detail : 0 Lift/Transfer : Minimal Central Line Order Detail : No Room Service : Appropriate Arterial Line : No Adeline Vasquez RN - 01/10/2019 8:05 EST documented in this encounter Plan of Treatment Not on file documented as of this encounter Visit Diagnoses Not on filedocumented in this encounter
--- NOTE | 2024-10-06 09:31 | XR_ITS ---
PROCEDURE INFORMATION: Exam: XR Chest Exam date and time: 10/06/2024 9:54 AM Age: 74 years old Clinical indication: Shortness of breath; Prior surgery; Surgery date: 6+ months; Surgery type: Pacemaker; Additional info: Shortness of breath & chest pain TECHNIQUE: Imaging protocol: Radiologic exam of the chest. Views: 1 view. COMPARISON: CT ANGIO CHEST PE PROTOCOL 11/24/2022 2:32 PM FINDINGS: Tubes, catheters and devices: Transvenous pacemaker leads in the heart Lungs: Opacities in both mid lung regions in both bases may represent multifocal pneumonia.. Pleural spaces: Moderate left pleural effusion. Heart/Mediastinum: Unremarkable. No cardiomegaly. Bones/joints: Unremarkable. IMPRESSION: 1. Moderate left pleural effusion. 2. Opacities in both mid lung regions in both bases may represent multifocal pneumonia..
[2024-10-06 09:42] LABS: Hematocrit 28.8 % (42.0-52.0); Hemoglobin 8.7 g/dL (14.1-18.0); Immature Granulocytes % 0 %; Mean Corpuscular HGB Conc 30.2 g/dL (31.8-35.4); Mean Corpuscular Hemoglobin 24.2 pg (27.0-31.2); Mean Corpuscular Volume 80.0 fl (80-94); Nucleated Red Blood Cells % 0 %; Platelet Count 123 K/mm3 (142-424); Red Blood Count 3.60 M/mm3 (4.60-6.20); Red Cell Distribution Width-SD 46.3 fL; White Blood Count 2.9 K/mm3 (4.8-10.8)
[2024-10-06 09:53] LABS: Alanine Aminotransferase 9 U/L (12-78); Albumin Level 3.5 g/dl (3.5-5.0); Albumin/Globulin Ratio 1.6 (1.1-1.8); Alkaline Phosphatase 123 U/L (38-126); Anion Gap 8.2 mEq/L (5-15); Aspartate Amino Transferase 21 U/L (17-59); Bilirubin,Total 0.5 mg/dl (0.2-1.3); Blood Urea Nitrogen 9 mg/dl (9-20); Calcium 9.5 mg/dl (8.4-10.2); Carbon Dioxide 27 mmol/L (22.0-30.0); Chloride 108 mmol/L (98-107); Creatinine Clearance Estimated 59 mL/min (50-200); Creatinine,Serum 0.80 mg/dl (0.66-1.25); Estimated Glomerular Filt Rate 94 ml/min (>60); GFR (African American) 114 ML/MIN (>60); Globulin 2.2 g/dL (1.3-3.2); Glucose 206 mg/dl (74-100); Potassium 3.2 mmoL/L (3.5-5.1); Sodium 140 mmol/L (136-145); Total Protein,Serum 5.7 g/dl (6.3-8.2)
[2024-10-06] MEDS: IPRATROPIUM/ALBUTEROL 3 ML NEB IH (09:54)
[2024-10-06 10:01] LABS: INR 1.75 (0.9-1.1); Prothrombin Time 18.6 seconds (10.1-12.5)
[2024-10-06 10:05] LABS: NT Pro Brain Natriuretic Pep. 5080 pg/mL (0-450)
[2024-10-06 10:06] LABS: Troponin I < 0.01 ng/ml (0.00-0.034)
--- NOTE | 2024-10-06 10:10 | CT_ITS ---
PROCEDURE INFORMATION: Exam: CTA Chest With Contrast Exam date and time: 10/06/2024 10:35 AM Age: 74 years old Clinical indication: Other: Chest pain and shortness of breath TECHNIQUE: Imaging protocol: Computed tomographic angiography of the chest with contrast. Exam focused on the arteries. 3D rendering (Not supervised by radiologist): MIP and/or 3D reconstructed images were created by the technologist. Radiation optimization: All CT scans at this facility use at least one of these dose optimization techniques: automated exposure control; mA and/or kV adjustment per patient size (includes targeted exams where dose is matched to clinical indication); or iterative reconstruction. Contrast material: ISO 370; Contrast volume: 70 ml; Contrast route: INTRAVENOUS (IV); COMPARISON: CT ANGIO CHEST PE PROTOCOL 11/24/2022 2:32 PM FINDINGS: Tubes, catheters and devices: Transvenous pacemaker leads in the heart Pulmonary arteries: No evidence of pulmonary embolus to the segmental level. Aorta: No aneurysm of the aorta. No dissection of the aorta. Lungs: Consolidation in the lower lobes may represent atelectasis or pneumonia. Pleural spaces: Large bilateral pleural effusions . Heart: There is calcification of the aortic valve annulus. There is calcification of the mitral valve annulus. Coronary arteries: Coronary artery calcifications may indicate coronary artery disease. Lymph nodes: Unremarkable. No enlarged lymph nodes. Spleen: The spleen demonstrates punctate calcifications, consistent with remote granulomatous organism exposure. Bones/joints: Healing right posterior 11 rib fracture.Impression. T11 compression fracture of unknown age. There are unhealed lucencies at T11 Soft tissues: Unremarkable. IMPRESSION: 1. Large bilateral pleural effusions . 2. No evidence of pulmonary embolus to the segmental level. 3. No aneurysm of the aorta. 4. No dissection of the aorta. 5. Consolidation in the lower lobes may represent atelectasis or pneumonia. 6 T11 compression fracture of unknown age. There are unhealed lucencies at T11 7 healing posterior right 11th rib fracture
[2024-10-06 10:14] LABS: D-Dimer 1.11 ug/mL (0.0-0.5)
--- NOTE | 2024-10-06 10:20 | PC.NURSE ---
Went to obtain Blood cultures, but could not find anything to stick. i informed RN sai knapp and she went to see if she could obtain any.
[2024-10-06 10:30] LABS: Hematocrit 28.3 % (42.0-52.0); Hemoglobin 8.3 g/dL (14.1-18.0); Immature Granulocytes % 0.3 %; Mean Corpuscular HGB Conc 29.3 g/dL (31.8-35.4); Mean Corpuscular Hemoglobin 23.5 pg (27.0-31.2); Mean Corpuscular Volume 80.2 fl (80-94); Nucleated Red Blood Cells % 0 %; Platelet Count 135 K/mm3 (142-424); Red Blood Count 3.53 M/mm3 (4.60-6.20); Red Cell Distribution Width-SD 46.6 fL; White Blood Count 2.9 K/mm3 (4.8-10.8)
--- NOTE | 2024-10-06 10:30 | PC.NURSE ---
patient gone to RAD
[2024-10-06] MEDS: 0.9 % SODIUM CHLORIDE 50 ML VIAL IV (10:35)
[2024-10-06] MEDS: IOPAMIDOL-370 (76%);100ML BOTTLE 70 ML IV (10:35)
[2024-10-06] MEDS: SODIUM CHLORIDE 0.9% 10ML SYR (RAD ONLY) 10 ML IV (10:35)
--- NOTE | 2024-10-06 10:36 | PC.NURSE ---
radiographic technologist called to state that pt was complaining of shortness of air while in CT. TRN went to assess pt. pt reports feeling short of breath, but no chest pain. Vital Signs: 167/75 HR 63 O2 93% on room air. pt transported back to room and MD notified.
--- NOTE | 2024-10-06 10:43 | PC.NURSE ---
patient from back from radiology
[2024-10-06 11:23] LABS: Hepatitis C Ab Qual. W/ RFX NEGATIVE (Negative)
--- NOTE | 2024-10-06 11:32 | PC.NURSE ---
Received report from COLBY Patterson.
--- NOTE | 2024-10-06 11:45 | PC.NURSE ---
house notified of bed request
--- NOTE | 2024-10-06 11:47 | PC.NURSE ---
Purwick place by Ervin Stevens, PT preferred purewick vs. urinal.
[2024-10-06] MEDS: FUROSEMIDE 40MG/4ML VIAL 40 MG IV (11:57)
[2024-10-06] MEDS: PANTOPRAZOLE SODIUM 80 MG in 0.9 % SODIUM CHLORIDE 100 ML 100 MG IV (11:57)
--- NOTE | 2024-10-06 12:47 | PC.NURSE ---
patient arrived to [facility] room 206 via wheelchair @1245
--- NOTE | 2024-10-06 13:55 | HMH.PHAINT1 ---
Pharmacy Intervention Comments: MEDICATION RECONCILIATION COMPLETE USING EXTERNAL PHARMACY FILL HISTORY AND MOST RECENT CARDIOLOGY OFFICE VISIT NOTE.
[2024-10-06] MEDS: AZITHROMYCIN 500 MG in 0.9 % SODIUM CHLORIDE 250 ML 250 MG IV (14:02)
[2024-10-06 15:32] LABS: Troponin I < 0.01 ng/ml (0.00-0.034)
--- NOTE | 2024-10-06 16:26 | P.HP_ITS ---
History of Present Illness *Admission Date: 10/06/24 *Reason for visit:: SOB *History of present illness: Patient is a 74-year-old male with past medical history of CAD, hypertension hyperlipidemia heart failure with reduced ejection fraction, prostate cancer who presents to the hospital due to complaints of shortness of breath as well as chest pain. Patient mentions he has been having midsternal chest pain with exertion, he also has noticed wheezing in his chest otherwise denied nausea vomiting diarrhea constipation dysuria fevers and chills. On further evaluation patient was found to have hemoglobin of 8, baseline hemoglobin around 12-13, patient denies any melanotic stools. [facility] Disclaimer: The information contained in this section may have been updated after the bill nt was seen, as this information can be updated by other users. Medical History (Updated 10/06/24 @ 12:54 by Sandra Garcia DO) Chronic HFrEF (heart failure with reduced ejection fraction) Abnormal cardiovascular stress test Atypical angina Pericardial effusion Prostate cancer Displacement of atrial pacemaker leads Cardiomyopathy Typical angina SOB (shortness of breath) HTN (hypertension) CAD (coronary artery disease) ST elevation myocardial infarction (STEMI) Cerebrovascular accident Surgical History History of cardiac catheterization Family History Other Family history of cancer Social History Smoking Status: Never smoker second hand exposure: No alcohol intake: current substance use type: denies use current occupational status: retired Travel in the last 8 weeks?: Inside the [place] household members: spouse housing: house current occupational exposures/hazards: No caffeine: Yes Have you lived/traveled outside [place] in past 30 days?: No Contact w/someone who lives/traveled outside US past 30 days?: No Exposure to someone with infectious disease in past 14 days?: No Do you have a fever (greater than 100.4 F or 38 C)?: No Have you tested positive for COVID-19?: No Exposed to someone with COVID-19 in past 14 days?: No Do you have a sore throat?: No Do you have a cough?: No Do you have any weakness?: Yes Do you have any diarrhea?: No Are you experiencing any unusual bleeding?: No Do you have any muscle aches/pain?: Yes Do you have any abdominal pain?: No Are you experiencing loss of taste or smell?: No Other Medical History Have you received the Flu Vaccine for this season: No Have you received the Pneumonia Vaccine: No Review of Systems Review of Systems Review of systems:: pertinent systems reviewed and negative unless documented below Meds Home Medications and Allergies Home Medications ?Medication ?Instructions ?Recorded ?Confirmed ?Type cyanocobalamin (vitamin B-12) 1,000 mcg PO DAILY Suppl ement 06/09/22 10/06/24 History 1,000 mcg tablet latanoprost 0.005 % eye drops 1 drp Eye-Both HS 10/06/24 History clopidogrel 75 mg tablet 75 mg PO DAILY #90 tabs 10/0410/06/24 Rx carbidopa 25 mg-levodopa 100 mg 1 tab PO TID 02/07/24 10/06/24 History tablet acetaminophen 500 mg tablet 1,000 mg PO .THREE TIMES W EEKLY 10/06/24 10/06/24 History bicalutamide 50 mg tablet 50 mg PO DAILY 10/06/2405/28 History insulin glargine 100 unit/mL (3 25 unit SQ DAILY 10/0610/06/24 History mL) subcutaneous pen (Lantus Solostar U-100 Insulin) melatonin 3 mg tablet 3 mg PO HS 10/06/24 10/06/24 History metoprolol tartrate 25 mg tablet 25 mg PO BID 10/06/24 10/06/24 History mirtazapine 15 mg tablet 7.5 mg PO HS 10/06/24 History nitroglycerin 0.4 mg sublingual 0.4 mg sublingual Q5MI MACHINE EDGE BANDER PRN Chest 10/06/24 10/06/24 History tablet Pain pantoprazole 40 mg tablet,delayed 40 mg PO BID 5 10/06/24 History release potassium chloride 20 mEq 20 meq PO DAILY 10/06/2405/28 History tablet,extended release(part/cryst) rivaroxaban 20 mg tablet (Xarelto) 20 mg PO QPMWITHMEA L 10/06/24 10/06/24 History sucralfate 100 mg/mL oral 10 ml PO QID 10/06/24 History suspension New Prescriptions to Start Prescriptions: Allergies Allergy/AdvReac Type Severity Reaction Status Date / Time No Known Allergies Allergy Verified 05/14/24 10:01 Exam Data for Last 24 hours Vital signs and Labs for Last 24 Hours: Temp Pulse Resp BP Pulse Ox O2 Del Method 98.4 F 68 26 H 138/88 98 Room Air 10/06/24 14:32 10/06/24 14:32 10/06/24 14:32 10/06/24 14:32 10/06/24 14:32 10/06/24 15:00 Laboratory Results - last 24 hr 10/06/24 09:34: WBC 2.9 L, RBC 3.60 L, Hgb 8.7 L, Hct 28.8 L, MCV 80.0, MCH 24.2 L, MCHC 30.2 L, RDW 16.2, Plt Count 123 L, MPV 8.9, Neut % (Auto) 65.7, Lymph % (Auto) 19.7, [place] % (Auto) 10.4 H, Eos % (Auto) 3.5, Baso % (Auto) 0.7, Neut # (Auto) 1.9, Lymph # (Auto) 0.6 L, [place] # (Auto) 0.3, Eos # (Auto) 0.1, Baso # (Auto) 0.0, PT 18.6 H, INR 1.75 H, D-Dimer 1.11 H, Sodium 140, Potassium 3.2 L, Chloride 108 H, Carbon Dioxide 27, Anion Gap 8.2, BUN 9, Creatinine 0.80, Estimated Creat Clear 59, Estimated GFR 94, Est GFR ( Amer) 114, Glucose 206 H, Calcium 9.5, Total Bilirubin 0.5, AST 21, ALT 9 L, Alkaline Phosphatase 123, Troponin I < 0.01, NT-Pro-B Natriuret Pep 5080 H, Total Protein 5.7 L, Albumin 3.5, Globulin 2.2, Albumin/Globulin Ratio 1.6, HCV Ab ANDRES w/Rflx PCR Qn Negative, HIV Ag/Ab Combo Qual Negative 10/06/24 10:23: WBC 2.9 L, RBC 3.53 L, Hgb 8.3 L, Hct 28.3 L, MCV 80.2, MCH 23.5 L, MCHC 29.3 L, RDW 16.2, Plt Count 135 L, MPV 9.0, Neut % (Auto) 65.7, Lymph % (Auto) 20.1, [place] % (Auto) 9.5 H, Eos % (Auto) 3.7, Baso % (Auto) 0.7, Neut # (Auto) 1.9, Lymph # (Auto) 0.6 L, [place] # (Auto) 0.3, Eos # (Auto) 0.1, Baso # (Auto) 0.0 10/06/24 14:05: Troponin I < 0.01 I & O for Last 24 hours: Intake & Output 10/03/24 10/04/24 10/05/24 10/06/24 23:59 23:59 23:59 23:59 Weight 73.198 kg Constitutional Constitutional: no acute distress *Routine HEENT Exam Head: Present normocephalic Eye: Present EOMI and PERRL ENT: Present mucous membranes moist *Routine Neck Exam Neck: Present supple; Absent lymphadenopathy *Routine Respiratory Exam Respiratory: Present CTA bilaterally *Routine Cardiovascular Exam Cardiovascular: Present RRR *Routine Abdominal Exam Abdominal: Present soft and normoactive bowel sounds; Absent tenderness *Routine Rectal Exam Rectal:: deferred *Routine Genitalia Exam Genitalia:: deferred *Routine Extremities Exam Extremities: Absent cyanosis, clubbing or edema *Routine Skin Exam Skin: Present warm; Absent rash *Routine Neurological Exam Neurological: Present alert and oriented X3 Assessment and Plan *Assessment and plan (1) Acute exacerbation of CHF (congestive heart failure): Status: Acute Category: Medical Code(s): I50.9 - Heart failure, unspecified (2) Anemia: Status: Acute Category: Medical Code(s): D64.9 - Anemia, unspecified (3) HTN (hypertension): Status: Chronic Qualifiers: Hypertension type: essential hypertension Qualified Code(s): I10 - Essential (primary) hypertension Category: Medical Code(s): I10 - Essential (primary) hypertension (4) HLD (hyperlipidemia): Status: Chronic Qualifiers: Hyperlipidemia type: other hyperlipidemia Qualified Code(s): E78.49 - Other hyperlipidemia Category: Medical Code(s): E78.5 - Hyperlipidemia, unspecified (5) CAD (coronary artery disease): Status: Chronic Qualifiers: Coronary Disease-Associated Artery/Lesion type: [place] artery [place] vs. transplanted heart: [place] heart Associated angina: without angina Qualified Code(s): I25.10 - Atherosclerotic heart disease of [place] coronary artery without angina pectoris Category: Medical Code(s): I25.10 - Atherosclerotic heart disease of [place] coronary artery without angina pectoris Plan Patient is a 74-year-old male with past medical history of CAD, hypertension hyperlipidemia heart failure with reduced ejection fraction, prostate cancer who presents to the hospital due to complaints of shortness of breath as well as chest pain. Patient mentions he has been having midsternal chest pain with exertion, he also has noticed wheezing in his chest otherwise denied nausea vomiting diarrhea constipation dysuria fevers and chills. On further evaluation patient was found to have hemoglobin of 8, baseline hemoglobin around 12-13, patient denies any melanotic stools. Assessment and plan Shortness of breath suspect acute on chronic CHF with reduced ejection fraction Start 20 IV twice daily Lasix Strict I's and O's Order echocardiogram Consult cardiology Acute anemia, rule out anemia blood loss Order stool occult blood Start IV Protonix Avoid antiplatelets anticoagulants for now Chronic medical conditions Hypertension Hyperlipidemia CAD hypertension cardiomyopathy DMI Order insulin sliding scale - Resume home medications when medical reconciliation is complete DVT prophylaxis-SCDs for now
[2024-10-06] MEDS: FUROSEMIDE 20 MG/2 ML VIAL IV (17:09)
[2024-10-06 17:18] LABS: Troponin I 0.01 ng/ml (0.00-0.034)
--- NOTE | 2024-10-06 18:06 | PC.NURSE ---
pt a&ox4. new admit this shift. at bedside. abx and lasix given per mar. purewick in place draining light yellow urine. no complaints of pain. chronic parkinsons tremor noted. no needs at this time. call light within reach
[2024-10-06 18:36] LABS: Occult Blood,Stool Positive (Negative)
[2024-10-06 20:14] LABS: POC Glucose,Bedside 180 (70-110)
[2024-10-06 20:36] LABS: Procalcitonin 0.048 ng/mL (0.0-2.0)
[2024-10-06 20:51] LABS: Hematocrit 27.0 % (42.0-52.0); Hemoglobin 8.3 g/dL (14.1-18.0)
[2024-10-06] MEDS: humaLOG 100 UNITS/ML 10ML VIAL (SSI) SUBCUT (21:02)
[2024-10-06] MEDS: MELATONIN 5MG TABLET 5 MG PO (21:03)
[2024-10-06] MEDS: MIRTAZAPINE 15 MG TABLET 7.5 MG PO (21:03)
[2024-10-06] MEDS: CARBIDOPA/LEVODOPA 25/100MG TABLET 1 EACH PO (21:03)
[2024-10-06] MEDS: METOPROLOL TARTRATE 25MG TABLET 25 MG PO (21:03)
[2024-10-06] MEDS: PANTOPRAZOLE 40MG VIAL 40 MG IV (21:03)
[2024-10-07] VITALS (8 sets, daily range): BP systolic 128–147; BP diastolic 50–66; PULSE 60–110; RESP 16–18; TEMP 36.5–37.1; O2SAT 90–96; BMI 24.3
--- NOTE | 2024-10-07 04:58 | PC.NURSE ---
patient A&O x4. at bed side throughout shift. patient no new complaints. Medicated patient per mar. purewick draining appropriately. No acute changes overnight. Will continue to monitor.
[2024-10-07] MEDS: FUROSEMIDE 20 MG/2 ML VIAL IV (05:54)
[2024-10-07 05:56] LABS: POC Glucose,Bedside 120 (70-110)
[2024-10-07] MEDS: IPRATROPIUM/ALBUTEROL 3 ML NEB IH ×2 (06:55→09:28)
--- NOTE | 2024-10-07 08:03 | EXP.SURG.CON ---
History of Present Illness *Admission Date: 10/06/24 *Reason for visit:: GI bleed anemia *History of present illness: Patient is a 74-year-old male with a history of coronary artery disease with previous stenting on clopidogrel and Xarelto, congestive heart failure, GERD, atrial fibrillation, cardiac pacemaker, diabetes, hypertension, hyperlipidemia, cardiomyopathy, history of metastatic prostate cancer from [facility] who presented to the emergency department with complaints of shortness of breath and chest pain. He also complains of left upper extremity swelling. He was noted to have a hemoglobin of 8.7. Previous hemoglobin a year ago was 13. Denies symptoms consistent with hematochezia or melena. He did have Hemoccult positivity. Other pertinent laboratory findings reveal a platelet count of 123,000 and an INR of 1.75. Liver function tests normal. Sodium normal at 140. Surgical consultation was obtained for the anemia. Of note, patient had a 6-week hospitalization several facilities after a hip fracture. He was initially at [facility] in [place] and then in [facility]. Ultimately following that had some stay for inpatient rehabilitation in an [facility]. While he was at [facility] he did have melena and underwent upper endoscopy which by report revealed erosive esophagitis with several small shallow ulcers in the antrum and an ulcer in the second portion of the duodenum with some stigmata of recent bleeding. He was treated and did undergo follow-up EGD while he was still in inpatient which was reportedly normal. [facility] Disclaimer: The information contained in this section may have been updated after the patient was seen, as this information can be updated by other users. Medical History (Updated 10/06/24 @ 12:54 by Sandra Garcia DO) Chronic HFrEF (heart failure with reduced ejection fraction) Abnormal cardiovascular stress test Atypical angina Pericardial effusion Prostate cancer Displacement of atrial pacemaker leads Cardiomyopathy Typical angina SOB (shortness of breath) HTN (hypertension) CAD (coronary artery disease) ST elevation myocardial infarction (STEMI) Cerebrovascular accident Surgical History History of cardiac catheterization Family History Other Family history of cancer Social History Smoking Status: Never smoker second hand exposure: No alcohol intake: current substance use type: denies use current occupational status: retired Travel in the last 8 weeks?: Inside the [place] household members: spouse housing: house current occupational exposures/hazards: No caffeine: Yes Have you lived/traveled outside [place] in past 30 days?: No Contact w/someone who lives/traveled outside US past 30 days?: No Exposure to someone with infectious disease in past 14 days?: No Do you have a fever (greater than 100.4 F or 38 C)?: No Have you tested positive for COVID-19?: No Exposed to someone with COVID-19 in past 14 days?: No Do you have a sore throat?: No Do you have a cough?: No Do you have any weakness?: Yes Do you have any diarrhea?: No Are you experiencing any unusual bleeding?: No Do you have any muscle aches/pain?: Yes Do you have any abdominal pain?: No Are you experiencing loss of taste or smell?: No Meds Home Medications and Allergies Home Medications ?Medication ?Instructions ?Recorded ?Confirmed ?Type cyanocobalamin (vitamin B-12) 1,000 mcg PO DAILY Supplement 06/09/22 10/06/24 History 1,000 mcg tablet latanoprost 0.005 % eye drops 1 drp Eye-Both HS 09/20/23 10/06/24 History clopidogrel 75 mg tablet 75 mg PO DAILY #90 tabs 10/18/23 10/06/24 Rx carbidopa 25 mg-levodopa 100 mg 1 tab PO TID 02/07/24 10/06/24 History tablet acetaminophen 500 mg tablet 1,000 mg PO .THREE TIMES WEEKLY 10/06/24 10/06/24 History bicalutamide 50 mg tablet 50 mg PO DAILY 10/06/24 10/06/24 History insulin glargine 100 unit/mL (3 25 unit SQ DAILY 10/06/24 10/06/24 History mL) subcutaneous pen (Lantus Solostar U-100 Insulin) melatonin 3 mg tablet 3 mg PO HS 10/06/24 10/06/24 History metoprolol tartrate 25 mg tablet 25 mg PO BID 10/06/24 10/06/24 History mirtazapine 15 mg tablet 7.5 mg PO HS 10/06/24 10/06/24 History nitroglycerin 0.4 mg sublingual 0.4 mg sublingual Q5MINP PRN Chest 10/06/24 10/06/24 History tablet Pain pantoprazole 40 mg tablet,delayed 40 mg PO BID 10/06/24 10/06/24 History release potassium chloride 20 mEq 20 meq PO DAILY 10/06/24 10/06/24 History tablet,extended release(part/cryst) rivaroxaban 20 mg tablet (Xarelto) 20 mg PO QPMWITHMEAL 10/06/24 10/06/24 History sucralfate 100 mg/mL oral 10 ml PO QID 10/06/24 10/06/24 History suspension New Prescriptions to Start Prescriptions: Allergies Allergy/AdvReac Type Severity Reaction Status Date / Time No Known Allergies Allergy Verified 05/14/24 10:01 Exam (Inpt) Vital signs and Labs for Last 24 Hours: Temp Pulse Resp BP Pulse Ox O2 Del Method 98.2 F 80 16 147/66 H 90 L Room Air 10/07/24 07:55 10/07/24 07:55 10/07/24 07:55 10/07/24 07:55 10/07/24 07:55 10/07/24 07:55 Laboratory Results - last 24 hr 10/06/24 09:34: WBC 2.9 L, RBC 3.60 L, Hgb 8.7 L, Hct 28.8 L, MCV 80.0, MCH 24.2 L, MCHC 30.2 L, RDW 16.2, Plt Count 123 L, MPV 8.9, Neut % (Auto) 65.7, Lymph % (Auto) 19.7, Churchill % (Auto) 10.4 H, Eos % (Auto) 3.5, Baso % (Auto) 0.7, Neut # (Auto) 1.9, Lymph # (Auto) 0.6 L, Churchill # (Auto) 0.3, Eos # (Auto) 0.1, Baso # (Auto) 0.0, PT 18.6 H, INR 1.75 H, D-Dimer 1.11 H, Sodium 140, Potassium 3.2 L, Chloride 108 H, Carbon Dioxide 27, Anion Gap 8.2, BUN 9, Creatinine 0.80, Estimated Creat Clear 59, Estimated GFR 94, Est GFR ( Amer) 114, Glucose 206 H, Calcium 9.5, Total Bilirubin 0.5, AST 21, ALT 9 L, Alkaline Phosphatase 123, Troponin I < 0.01, NT-Pro-B Natriuret Pep 5080 H, Total Protein 5.7 L, Albumin 3.5, Globulin 2.2, Albumin/Globulin Ratio 1.6, HCV Ab ANDRES w/Rflx PCR Qn Negative, HIV Ag/Ab Combo Qual Negative 10/06/24 10:23: WBC 2.9 L, RBC 3.53 L, Hgb 8.3 L, Hct 28.3 L, MCV 80.2, MCH 23.5 L, MCHC 29.3 L, RDW 16.2, Plt Count 135 L, MPV 9.0, Neut % (Auto) 65.7, Lymph % (Auto) 20.1, Churchill % (Auto) 9.5 H, Eos % (Auto) 3.7, Baso % (Auto) 0.7, Neut # (Auto) 1.9, Lymph # (Auto) 0.6 L, Churchill # (Auto) 0.3, Eos # (Auto) 0.1, Baso # (Auto) 0.0 10/06/24 14:05: Troponin I < 0.01, Procalcitonin 0.048 10/06/24 16:28: Stool Occult Blood Positive A 10/06/24 16:50: Troponin I 0.01 10/06/24 20:06: POC Glucose 180 H 10/06/24 20:25: Hgb 8.3 L, Hct 27.0 L, Blood Type A Negative, Antibody Screen Negative, Crossmatch (AHG) See Detail 10/07/24 05:49: POC Glucose 120 H I & O for Labs for Last 24 Hours: Intake & Output 10/04/24 10/05/24 10/06/24 10/07/24 11:59 11:59 11:59 11:59 Intake Total 140 / 140 Output Total 3000 / 3000 Balance -2860 / -2860 Weight 145 lb 164 lb 8 oz Results Labs 10/07/24 08:01 10/07/24 08:01 Labs: Laboratory Results - last 24 hr 10/06/24 09:34: WBC 2.9 L, RBC 3.60 L, Hgb 8.7 L, Hct 28.8 L, MCV 80.0, MCH 24.2 L, MCHC 30.2 L, RDW 16.2, Plt Count 123 L, MPV 8.9, Neut % (Auto) 65.7, Lymph % (Auto) 19.7, Churchill % (Auto) 10.4 H, Eos % (Auto) 3.5, Baso % (Auto) 0.7, Neut # (Auto) 1.9, Lymph # (Auto) 0.6 L, Churchill # (Auto) 0.3, Eos # (Auto) 0.1, Baso # (Auto) 0.0, PT 18.6 H, INR 1.75 H, D-Dimer 1.11 H, Sodium 140, Potassium 3.2 L, Chloride 108 H, Carbon Dioxide 27, Anion Gap 8.2, BUN 9, Creatinine 0.80, Estimated Creat Clear 59, Estimated GFR 94, Est GFR ( Amer) 114, Glucose 206 H, Calcium 9.5, Total Bilirubin 0.5, AST 21, ALT 9 L, Alkaline Phosphatase 123, Troponin I < 0.01, NT-Pro-B Natriuret Pep 5080 H, Total Protein 5.7 L, Albumin 3.5, Globulin 2.2, Albumin/Globulin Ratio 1.6, HCV Ab ANDRES w/Rflx PCR Qn Negative, HIV Ag/Ab Combo Qual Negative 10/06/24 10:23: WBC 2.9 L, RBC 3.53 L, Hgb 8.3 L, Hct 28.3 L, MCV 80.2, MCH 23.5 L, MCHC 29.3 L, RDW 16.2, Plt Count 135 L, MPV 9.0, Neut % (Auto) 65.7, Lymph % (Auto) 20.1, Churchill % (Auto) 9.5 H, Eos % (Auto) 3.7, Baso % (Auto) 0.7, Neut # (Auto) 1.9, Lymph # (Auto) 0.6 L, Churchill # (Auto) 0.3, Eos # (Auto) 0.1, Baso # (Auto) 0.0 10/06/24 14:05: Troponin I < 0.01, Procalcitonin 0.048 10/06/24 16:28: Stool Occult Blood Positive A 10/06/24 16:50: Troponin I 0.01 10/06/24 20:06: POC Glucose 180 H 10/06/24 20:25: Hgb 8.3 L, Hct 27.0 L, Blood Type A Negative, Antibody Screen Negative, Crossmatch (AHG) See Detail 10/07/24 05:49: POC Glucose 120 H Assessment and Plan *Assessment and plan (1) Anemia: Status: Acute Category: Medical Code(s): D64.9 - Anemia, unspecified Plan No indications for emergent EGD at this time. May need upper endoscopy at some point during this hospitalization. Unclear as to the etiology for his elevated INR. Unclear as to what his baseline hemoglobin has been over the past several weeks since his hospitalizations. I will see if we can obtain some records. May benefit from gastroenterology evaluation.
[2024-10-07 08:12] LABS: Hematocrit 29.8 % (42.0-52.0); Hemoglobin 8.9 g/dL (14.1-18.0); Immature Granulocytes % 0.3 %; Mean Corpuscular HGB Conc 29.9 g/dL (31.8-35.4); Mean Corpuscular Hemoglobin 23.9 pg (27.0-31.2); Mean Corpuscular Volume 79.9 fl (80-94); Nucleated Red Blood Cells % 0 %; Platelet Count 141 K/mm3 (142-424); Red Blood Count 3.73 M/mm3 (4.60-6.20); Red Cell Distribution Width-SD 47.3 fL; White Blood Count 3.7 K/mm3 (4.8-10.8)
[2024-10-07 08:21] LABS: INR 1.29 (0.9-1.1); Prothrombin Time 14.1 seconds (10.1-12.5)
[2024-10-07] MEDS: INSULIN GLARGINE 100 UNITS/ML 3ML FLEXPEN 25 UNIT SUBCUT (08:42)
[2024-10-07] MEDS: METOPROLOL TARTRATE 25MG TABLET 25 MG PO ×2 (08:45→20:27)
[2024-10-07] MEDS: SUCRALFATE 1GM/10ML SUSP UDC 1 GM PO ×4 (08:45→21:18)
[2024-10-07] MEDS: PANTOPRAZOLE 40MG VIAL 40 MG IV ×2 (08:46→20:27)
[2024-10-07] MEDS: CARBIDOPA/LEVODOPA 25/100MG TABLET 1 EACH PO ×3 (08:46→20:27)
[2024-10-07 08:56] LABS: POC Glucose,Bedside 191 (70-110)
[2024-10-07] MEDS: FUROSEMIDE 40MG/4ML VIAL 40 MG IV ×2 (08:59→15:05)
[2024-10-07 09:22] LABS: Chloride 102 mmol/L (98-107); Sodium 137 mmol/L (136-145)
[2024-10-07 09:25] LABS: Anion Gap 9.0 mEq/L (5-15); Blood Urea Nitrogen 9 mg/dl (9-20); Calcium 9.5 mg/dl (8.4-10.2); Carbon Dioxide 29 mmol/L (22.0-30.0); Creatinine Clearance Estimated 67 mL/min (50-200); Creatinine,Serum 0.70 mg/dl (0.66-1.25); Estimated Glomerular Filt Rate 110 ml/min (>60); GFR (African American) 133 ML/MIN (>60); Glucose 159 mg/dl (74-100)
[2024-10-07 09:33] LABS: Potassium 3.0 mmoL/L (3.5-5.1)
--- NOTE | 2024-10-07 10:07 | HMH.OTEV ---
OT Inpatient Evaluation Rehab OT IP Evaluation Start: 10/06/24 13:03 Freq: ONCE Status: Active Protocol: Document 10/07/24 09:19 CELSA (Rec: 10/07/24 10:07 CELSA [id number]) Rehab OT IP Assessment Subjective History Patient is a 74-year-old male with past medical history of CAD, hypertension hyperlipidemia heart failure with reduced ejection fraction, prostate cancer who presents to the hospital due to complaints of shortness of breath as well as chest pain. Patient mentions he has been having midsternal chest pain with exertion, he also has noticed wheezing in his chest otherwise denied nausea vomiting diarrhea constipation dysuria fevers and chills. On further evaluation patient was found to have hemoglobin of 8, baseline hemoglobin around 12-13, patient denies any melanotic stools. Patient lives in 1 story home with with 1 HIMA. Patient assist with ADLs such as bathing. Patient uses a rollator to ambulate throughout the environment. Subjective I can get up. Instructed Patient on safety awareness to complete bed mobility from supine->sit @ EOB requiring Min A. Patient completed fx'l mobility to maneuver throughout environment ~25ft with CGA. No LOB noted. Objective Patient Orientation Person,Place,Name,Age Right Upper WFL Extremity Gross ROM Left Upper Extremity WFL Gross ROM Bed Mobility bed mobility - supine/sit Assist Level Minimal x 1 (25% assist) Transfer Training Sit/Stand/Step Transfer Assist Level Minimal x 1 (25% assist) Chair Transfer Minimal x 1 (25% assist) Ability Chair Transfer Sit to/from Ambulatory Technique Chair Transfer Rolling Walker Assistive Devices Rehab OT IP prob,goals,plan Problems Date of Evaluation: 10/07/24 OT IP Problems Bed Mobility,Transfers,Balance,Self care Rehab Potential Rehab Potential Good Equipment Needs Assistive Devices Rolling / Wheeled Walker Plan OT intervention Plan Bed Mobility,Transfers,Balance,Self care,Safety, Therapeutic Exercise OT Plan Frequency Daily Duration LOS Discharge Goals Bed Mobility Ability Standby Assistance Sit to Stand Chair Supervision/Stand by Transfer Ability Chair Transfer Supervision/Stand by Ability Chair Transfer Sit to/from Ambulatory Technique Chair Transfer Rolling Walker Assistive Devices Discharge Plan OT Discharge Plan Recommend Patient return home with and HH services after medical d/c. However Patient will benefit from OT IP services while here at [facility] in order to improve independence with ADLs and fx'l mobility to prepare for appropriate d/c. Eval Complexity Eval Charge Codes 15730 - Low Complexity PHYSICIAN CERTIFICATION: I certify the specified therapy services for Gerry Pollock are required, authorized, and reviewed every 30 days.
[2024-10-07] MEDS: POTASSIUM CHLORIDE 20MEQ TAB 40 MEQ PO ×3 (10:53→18:27)
[2024-10-07] MEDS: IRON SUCROSE COMPLEX 200 MG in 0.9 % SODIUM CHLORIDE 100 ML 220 MG IV (10:57)
[2024-10-07] MEDS: humaLOG 100 UNITS/ML 10ML VIAL (SSI) SUBCUT (10:57)
[2024-10-07 11:29] LABS: POC Glucose,Bedside 194 (70-110)
--- OUTSIDE RECORDS SUMMARY | 2024-10-07 11:38 | XMS_ITS | Encounter Summary ---
Author Organization [facility] Address [address] [place] [address] Care Team Providers Care Airfield Operations Specialist Name Role Phone Eric Maria MD Primary Care Provider Encounter Details Date Type Department Care Team (Late st Contact Info) Description 05/26/2024 Orders Only External Location [address] [place] [address] Provider, External Social History Tobacco Use Types [...] Description 10/24/2024 10:45 AM EDT Office Visit [facility] [address], [address] [place] [address] Jennifer Barber, CHECK VIEWER, DNP [address] [place] [phone] 11/21/2024 9:30 AM EDT Office Visit [facility] [address], [address] [place] [address] Chu Null MD [address] [place] [address] 09/11/2025 10:00 AM EDT Ancillary Procedure [facility] [address], [address] [place] [address] 09/11/2025 11:00 AM EDT Office Visit [facility] [id number] [place] [address] Jeff Longoria MD [address] [place] [address] documented as of this encounter [...] documented as of this encounter Care Teams Airfield Operations Specialist Relationship Specialty Start Date End Date Eric Maria MD [address] [place] [id number] PCP - General 11/04/20 documented as of this encounter
--- OUTSIDE RECORDS SUMMARY | 2024-10-07 11:38 | XMS_ITS | Encounter Summary ---
Author Organization [facility] Address [address] [place] [address] Care Team Providers Care Designer Name Role Phone Eric Maria MD Primary Care Provider Encounter Details Date Type Department Care Team (Late st Contact Info) Description 05/25/2024 Orders Only External Location [address] [place] [address] Vicky Sapp MD [address] [place] [address] Social History Tobacco Use Types Packs/Day Years [...] Description 10/24/2024 10:45 AM EDT Office Visit [facility] [address] [place] [address] Jennifer Barber, [employer], DNP [address] [place] [address] 11/21/2024 9:30 AM EDT Office Visit [facility] [address] [place] [address] Chu Null MD [address] [facility] [address] [place] [address] 09/11/2025 10:00 AM EDT Ancillary Procedure [facility] [address] [place] [address] 09/11/2025 11:00 AM EDT Office Visit [facility] [address] [place] [address] Jeff Longoria MD [address] [place] [id number] documented as of this encounter Procedures Procedure [...] documented as of this encounter Care Teams Designer Relationship Specialty Start Date End Date Eric Maria MD [address] [place] [address] PCP - General 11/04/20 documented as of this encounter
--- OUTSIDE RECORDS SUMMARY | 2024-10-07 11:38 | XMS_ITS | Clinical Summary ---
Author Organization [facility] Address [address] [place] [address] Care Team Providers Care Grid Casting Machine Operator Helper Name Role Phone Eric Maria MD Primary [...] for fever (for temperature > 38.5). Under [place] law, monthly prescriptions (30 days) can be [...] Type Department Care Team Description 09/13/2024 Refill [facility] [address], [address] [place] [address] Chris Stratton MBBS 09/12/2024 9:30 AM EDT Office Visit [facility] Medicine Specialties [address], [address] [place] [address] Jeff Longoria MD Pulmonary sarcoidosis (CMS/[facility]) (Primary Dx); Dyspnea on exertion 09/12/2024 8:00 AM EDT Ancillary Procedure [facility] Medicine Specialties [address] [facility], 2nd [place] [phone] Sarcoidosis; Shortness of breath 09/12/2024 Travel 09/10/2024 Travel 07/08/2024 1:21 PM EDT Anesthesia Event [facility] [address] [place] [address] Eladio Mercado MD Carney Tinsley, Amanda S, APRN, DNP 07/08/2024 Travel 06/23/2024 11:40 PM EDT - 07/10/2024 11:50 AM EDT Hospital Encounter [facility] Inpatient [address] [place] [address] Kalema, MD [place] Jimmy S, DO Al-Abdouh, Ahmad A, MD Shafique, Anum, MD Foley, William S, MD Shock ([facility]) (Primary Dx); Parkinson's disease without dyskinesia or fluctuating manifestations (CMS/HCC); Sarcoidosis; Prostate cancer (CMS/HCC); Gastrointestinal hemorrhage, unspecified gastrointestinal hemorrhage type; Gastrointestinal hemorrhage with melena; Severe protein-calorie malnutrition (CMS/HCC); Coronary artery disease involving [place] heart, unspecified vessel or lesion type, unspecified whether angina present; Myocardial infarction, unspecified NM type, unspecified artery (CMS/HCC); Pacemaker; Gastrointestinal hemorrhage [...] and Family Not on file 06/24/2024 Attends Buddhist Services Not on file 06/24 Active Member [...] any time in the past 12 m [facility], were you homeless or living in a senior living (including now)? No 06/24/2024 Utilities Answer Date [...] Description 10/24/2024 10:45 AM EDT Office Visit [facility] Medicine Specialties [address], [address] [place] [address] Jennifer Barber APRN, OMAR [address] [place] [address] 11/21/2024 9:30 AM EDT Office Visit [facility] [address], [address] [place] [address] Chu Null MD [address] [place] [address] 09/11/2025 10:00 AM EDT Ancillary Procedure [facility] [address], [address] [place] [address] 09/11/2025 11:00 AM EDT Office Visit [facility] [address], [address] [place] [address] Jeff Longoria MD [address] [place] [phone] Health Maintenance Due Date Last Done Comments [facility]-Medicare Annual Wellness (AWV) 1950 [facility]-/Child/Adol SDOH Screenings 1950 [id number] Vaccine (#1) 1955 Diabetes: Dental Exam 07/27/1959 [...] Care Plan Autogenerated Problem No Antonia Johnson, electric container tester Procedure Name Priority Date/Time Associated Diagnosis Comments [...] AUTO DIFFERENTIAL Routine 07/07/2024 3:49 AM EDT ACUTE HEPATITIS PANEL Routine 06/24/2024 12:17 AM EDT HEMOGLOBIN A1C Routine 06/24/2024 12:17 AM EDT from Last 3 Months or Most Recently Relevant to Health Maintenance Results * (ABNORMAL) Pulmonary function test (09/12/2024 8:36 AM EDT) [facility] [id number] 2.84(A) 2.87 - 4.99 L VYAIRE PFT FVC PRED 3.92 VYAIRE PFT FVC LLN 2.87 VYAIRE PFT FVCPREZSCORE -1.69 VYAIRE PFT FVCPRE%PRED 72 % % VYAIRE PFT FVC PREDAUTDelaware [facility] Cent[facility] (2011) VYAIRE PFT FVC Z-SCORE -1.69 VYAIRE PFT FEV1 PRE 2.15 2.08 - 3.74 L VYAIRE PFT FEV1 PRED 2.94 VYAIRE PFT FEV1 LLN 2.08 VYAIRE PFT [id number] -1.52 VYAIRE PFT FEV1_Pre%Pred 73 % % VYAIRE PFT FEV1 PREDAUTDelaware Psych[facility] Centerr [facility] (2011) VYAIRE PFT FEV1 Z-SCORE -1.52 VYAIRE PFT FEV1/FVC PRE 75.58 61.31 - 88.08 % VYAIRE PFT QBB4WPOYKZT 75 VYAIRE PFT TXI3QMFKGI 61 VYAIRE PFT ROI5HMWUIIWWXAIS 0.02 VYAIRE PFT GED0EBXTAJ%PRED 100 % % VYAIRE PFT [id number] _[facility] (2011) VYAIRE PFT [id number] 0 VYAIRE PFT KOJ99-32% PRE 1.79 0.88 - 4.02 L/s VYAIRE PFT CZE90-08%_Pred 2.16 VYAIRE PFT LGP2329%LLN 0.88 VYAIRE PFT YXD5492%PREZSCORE -0.41 VYAIRE PFT KTK9912%PRE%PRED 83 % % VYAIRE PFT ISB8274%PREDFormerly [facility] (2011) VYAIRE PFT PEF PRE 4.44(A) 5.35 - 9.86 L/s VYAIRE PFT PEF PRED 7.61 VYAIRE PFT PEF LLN 5.35 VYAIRE PFT PEFPREZSCORE -2.31 VYAIRE PFT PEFPRE%PRED 58 % % VYAIRE PFT PEF PREDAUT [facility] III (1998) VYAIRE PFT UYJPBCLNCZCSEGAF0LAF 8.88(A) 17.76 - 32.27 ml/(min* mmHg) VYAIRE PFT DLCOSINGLEBREATH PRED 24.36 VYAIRE PFT DLCOSINGLEBREATH LLN 17.76 VYAIRE PFT DLCOSINGLEBREATH Z-SCORE -4.61 VYAIRE PFT DLCOSINGLEBREATH % PRED 36.5 % VYAIRE PFT DLCOSINGLEBREATH [facility] Stanojevic TLCO GLI (2019) VYAIRE PFT DLCOSINGLEBREATH Z-SCORE -4.61 09/12/2024 8:27 AM EDT VYAIRE PFT RRJUIZHMHXAUAHTGD0NZ E 8.88(A) 17.76 - 32.27 ml/(min* mmHg) VYAIRE PFT DLCOCSINGLEBREATH PRED 24.36 VYAIRE PFT DLCOCSINGLEBREATH LLN 17.76 VYAIRE PFT DLCOCSINGLEBREATH Z-SCORE -4.61 VYAIRE PFT DLCOCSINGLEBREATH % PRED 36.5 % VYAIRE PFT DLCOCSINGLEBREATH [facility] Stanojevic TLCO GLI (2019) VYAIRE PFT LPWPHC5ERS 2.13(A) 2.92 - 5.14 ml/(min* mmHg*L) VYAIRE PFT DLCOVAPRED 3.98 VYAIRE PFT DLCOVALLN 2.92 VYAIRE PFT DLCOVAZSCORE -3.02 VYAIRE PFT DLCOVA%PRED 53.5 % VYAIRE PFT DLCOVAPREDAUTH Stanojevic TLCO GLI (2019) VYAIRE PFT DLCOVAZSCORE -3.02 09/12/2024 8:27 AM EDT VYAIRE PFT XFCOVLPYS9GOM 2.13(A) 2.92 - 5.14 ml/(min* mmHg*L) VYAIRE PFT DLCOC SB/VA PRED 3.98 VYAIRE PFT DLCOC SB/VA LLN 2.92 VYAIRE PFT DLCOC SB/VA Z-SCORE -3.02 VYAIRE PFT DLCOC SB/VA % PRED 53.5 % VYAIRE PFT DLCOC SB/VA [facility] Stanojevic TLCO GLI (2019) VYAIRE PFT DLCOC SB/VA Z-SCORE -3.02 09/12 8:27 AM EDT VYAIRE PFT GLBXYAKSGBFZIS8EQP 4.17(A) 4.94 - 7.45 L VYAIRE PFT VASINGLEBREATH PRED 6.15 VYAIRE PFT VASINGLEBREATH LLN 4.94 VYAIRE PFT VASINGLEBREATH Z-SCORE -2.77 VYAIRE PFT VASINGLEBREATH % PRED 67.9 % VYAIRE PFT VASINGLEBREATH [facility] Stanojevic TLCO GLI (2019) VYAIRE PFT VASINGLEBREATH Z-SCORE -2.77 09/12/2024 8:27 AM EDT VYAIRE PFT IGUOTPHDTGLHUEM3FPM 2.60(A) 2.87 - 4.99 L VYAIRE PFT IVCSINGLEBREATH PRED 3.92 VYAIRE PFT IVCSINGLEBREATH LLN 2.87 VYAIRE PFT IVCSINGLEBREATH Z-SCORE -2.07 VYAIRE PFT IVCSINGLEBREATH % PRED 66.3 % VYAIRE PFT IVCSINGLEBREATH [facility] US_Quanjer GLI (2011) VYAIRE PFT ISATU% VCMAX PRE 87.23 % VYAIRE PFT TLC SB PRE 4.32(A) 5.39 - 8.38 L VYAIRE PFT TLCSINGLEBREATH PRED 6.87 VYAIRE PFT TLCSINGLEBREATH LLN 5.39 VYAIRE PFT TLCSINGLEBREATH Z-SCORE -2.85 VYAIRE PFT TLCSINGLEBREATH % PRED 62.9 % VYAIRE PFT TLCSINGLEBREATH [facility] [place] Lung volumes GLI (2019)__ VYAIRE PFT HB PRE 14.60 g(Hb)/dL VYAIRE PFT PWU3YVP 4.95(A) 5.39 - 8.38 L VYAIRE PFT TLCPRED 6.87 VYAIRE PFT TLCLLN 5.39 VYAIRE PFT TLCULN 8.38 VYAIRE PFT TLCZSCORE -2.14 VYAIRE PFT TLC%PRED 72.0 % VYAIRE PFT TLCPREDAUTCenterville Lung volumes GLI (2019)__ VYAIRE PFT VC0PRE [...] VYAIRE PFT IC%PRED 61.0 % [facility]RE PFT ICPREDSpaulding [facility] Lung volumes GLI (2019)__ VYAIRE PFT DWIJTUNX1KLS 3.14 2.65 - 5.23 L VYAIRE PFT FRCPLETH PRED 3.80 VYAIRE PFT FRCPLETH LLN 2.65 VYAIRE PFT FRCPLETH ULN 5.23 VYAIRE PFT FRCPLETH Z-SCORE -0.90 VYAIRE PFT FRCPLETH % PRED 82.6 % VYAIRE PFT FRCPLETH PREDAUTCent[place] Lung volumes GLI (2019)__ VYAIRE PFT RJC7WHE 1.17 0.35 - 2.42 L VYAIRE PFT ERVPRED 1.18 VYAIRE PFT ERVLLN 0.35 VYAIRE PFT ERVULN 2.42 VYAIRE PFT ERV Z-SCORE -0.02 VYAIRE PFT ERV%PRED 99.2 % VYAIRE PFT ERVPREDAUTCent[place] Lung volumes GLI (2019)__ VYAIRE PFT RV0PRE 1.97 1.48 - 3.91 L VYAIRE PFT RVPRED 2.58 VYAIRE PFT RVLLN 1.48 VYAIRE PFT RVULN 3.91 VYAIRE PFT RVZSCORE -0.86 VYAIRE PFT RV%PRED 76.4 % VYAIRE PFT RVPREDAUTH [place] Lung volumes GLI (2019)__ VYAIRE PFT RV%UMY5QEL 39.80 25.64 - 50.70 % VYAIRE PFT [...] underwent pulmonary [facility]. The patient underwent spirometry, lung [...] 7:54 AM EDT) Only the most recent of16 resultswithin the time period is included. Pathologist [facility] [place] POCT Glucose 139(H) 74 - 99 mg/dL 07/10/2024 8:01 AM EDT [facility] Comment:Accuracy of a glucos e result [...] for testing. Comment 07/10/2024 8:01 AM EDT [facility]ARE [facility] Sanitary [place]kin Machine Tender ID Alobwede Brenda Siegel 07/10/2024 8:01 AM EDT [facility]ALTH[facility]ARE LAB Device ID [id number] 07/10/2024 8:01 AM EDT [facility]ALTH[facility]ARE [facility] Specimen Type POC Capillary 07/10/2024 8:01 AM EDT [facility] Blood Capillary blood specimen / Unknown 07/10/2024 7:54 AM EDT 07/10/2024 8:01 AM EDT Miguel Fong MD LAB POINT OF CARE TE ST DOCKED DEVICE UNSOLICITED RESULTS Final Result [facility] [address] [place] [address] * (ABNORMAL) CBC and Differential (07/09/2024 5:44 AM EDT) Only the most recent of2 resultswithin the time period is included. [facility] WBC Count 3.39(L) 3.70 - 10.30 10*3/uL LAB HEMATOLOGY METHOD 07/09/2024 6:01 AM EDT [facility] RBC Count 2.94(L) 4.60 - 6.10 10*6/uL LAB HEMATOLOGY METHOD 07/09/2024 6:01 AM EDT [facility] HGB 8.6(L) 13.7 - 17.5 g/dL LAB HEMATOLOGY METHOD 07/09/2024 6:01 AM EDT [facility] HCT 26.9(L) 40.0 - 51.0 % LAB HEMATOLOGY METHOD 07/09/2024 6:01 AM EDT [facility] Platelet Count 144(L) 155 - 369 10*3/uL LAB HEMATOLOGY METHOD 07/09/2024 6:01 AM EDT [facility] MCV 92 79 - 98 fL LAB HEMATOLOGY METHOD 07/09/2024 6:01 AM EDT [facility] MCH 29.3 26.0 - 32.0 pg LAB HEMATOLOGY METHOD 07/09/2024 6:01 AM EDT [facility] MCHC 32.0 30.7 - 35.5 g/dL LAB HEMATOLOGY METHOD 07/09/2024 6:01 AM EDT [facility] RDW 15.5(H) 11.5 - 14.5 % LAB HEMATOLOGY METHOD 07/09/2024 6:01 AM EDT [facility] MPV 9.4 8.8 - 12.5 fL LAB HEMATOLOGY METHOD 07/09/2024 6:01 AM EDT [facility] nRBC 0.0 <=0.0 per 100 WBCs LAB HEMATOLOGY METHOD 07/09/2024 6:01 AM EDT [facility] Differential Type Automated LAB HEMATOLOGY METHOD 07/09/2024 6:01 AM EDT [facility] Neutrophils % 71 % LAB HEMATOLOGY METHOD 07/09/2024 6:01 AM EDT [facility] Lymphocytes % 14 % LAB HEMATOLOGY METHOD 07/09/2024 6:01 AM EDT [facility] Monocytes % 12 % LAB HEMATOLOGY METHOD 07/09/2024 6:01 AM EDT [facility] Eosinophils % 2 % LAB HEMATOLOGY METHOD 07/09/2024 6:01 AM EDT [facility] Basophils % 1 % LAB HEMATOLOGY METHOD 07/09/2024 6:01 AM EDT [facility] Immature Granulocytes % 0 % LAB HEMATOLOGY METHOD 07/09/2024 6:01 AM EDT [facility] Neutrophils Absolute 2.40 1.60 - 6.10 10*3/uL LAB HEMATOLOGY METHOD 07/09/2024 6:01 AM EDT [facility] Lymphocytes Absolute 0.46(L) 1.20 - 3.90 10*3/uL LAB HEMATOLOGY METHOD 07/09/2024 6:01 AM EDT [facility] Monocytes Absolute 0.42 0.30 - 0.90 10*3/uL LAB HEMATOLOGY METHOD 07/09/2024 6:01 AM EDT [facility] Eosinophils Absolute 0.08 0.00 - 0.50 10*3/uL LAB HEMATOLOGY METHOD 07/09/2024 6:01 AM EDT [facility] Basophils Absolute 0.02 0.00 - 0.10 10*3/uL LAB HEMATOLOGY METHOD 07/09/2024 6:01 AM EDT [facility] Immature Granulocytes Absolute 0.01 0.00 - 0.06 10*3/uL LAB HEMATOLOGY METHOD 07/09/2024 6:01 AM EDT [facility] Blood Venous blood specimen / Unknown Venipuncture / Unknown 07/09/2024 5:44 AM EDT 07/09/2024 5:52 AM EDT Narrative [facility] - 07/09/2024 6:01 AM EDT Therapeutic decision making should be based on absolute values, rather than percentages. Vanessa Bustillos MD LAB BLOOD ORDERABLES Final Resu lt Performing Organization Address [facility]/ZIP Co de Phone Number [facility] [address] [place] [address] * (ABNORMAL) Magnesium, Plasma (07/09/2024 5:44 AM EDT) Magnesium, Plasma 1.8(L) 1.9 - 2.4 mg/dL 07/09/2024 6:23 AM EDT [facility] Blood Venous blood specimen / Unknown Venipuncture / Unknown 07/09/2024 5:44 AM EDT 07/09/2024 5:53 AM EDT Vanessa Bustillos MD LAB BLOOD ORDERABLES Final Resu lt [facility] [address] [place] [address] * (ABNORMAL) Comprehensive Metabolic Panel, Plasma (07/09/2024 5:44 AM EDT) Glucose, Plasma 126(H) 74 - 99 mg/dL 07/09/2024 6:23 AM EDT [facility] BUN, Plasma 8 8 - 23 mg/dL 07/09/2024 6:23 AM EDT [facility] Creatinine, Plasma 0.77 0.70 - 1.20 mg/dL 07/09/2024 6:23 AM EDT [facility] BUN/Creatinine Ratio 10 07/09/2024 6:23 AM EDT [facility] Sodium, Plasma 137 136 - 145 mmol/L 07/09/2024 6:23 AM EDT [facility] Potassium, Plasma 3.6 3.6 - 4.9 mmol/L 07/09/2024 6:23 AM EDT [facility] Chloride, Plasma 105 97 - 107 mmol/L 07/09/2024 6:23 AM EDT [facility] CO2, Plasma 23 22 - 29 mmol/L 07/09/2024 6:23 AM EDT [facility] Anion Gap 9 6 - 16 mmol/L 07/09/2024 6:23 AM EDT [facility] Total Calcium, Plasma 8.9 8.9 - 10.2 mg/dL 07/09/2024 6:23 AM EDT [facility] Total Protein 5.2(L) 6.3 - 7.9 g/dL 07/09/2024 6:23 AM EDT [facility] Albumin, Plasma 3.3(L) 3.5 - 5.2 g/dL 07/09/2024 6:23 AM EDT [facility] AST, Plasma 14 10 - 50 U/L 07/09/2024 6:23 AM EDT [facility] ALT, Plasma <5(L) 10 - 50 U/L 07/09/2024 6:23 AM EDT [facility] Alkaline Phosphatase, Plasma 154(H) 40 - 115 U/L 07/09/2024 6:23 AM EDT [facility] Total Bilirubin, Plasma 0.6 0.2 - 1.1 mg/dL 07/09/2024 6:23 AM EDT [facility] eGFRcr 93.9 mL/min/1.7 3m*2 07/09/2024 6:23 AM EDT [facility] Comment:Reported eGFRcr in m L/min/1.73m2 is based the CKD-EPI 2020 equation that does not use a race coefficient. Blood Venous blood specimen / Unknown Venipuncture / Unknown 07/09/2024 5:44 AM EDT 07/09/2024 5:53 AM EDT us Vanessa Bustillos MD LAB BLOOD ORDERABLES Final Resu lt [facility] [address] [place] [address] * EGD ROSE SOMMER; 07/08/2024 (07/08/2024 1:41 [...] abdominal pain, fever, gastrointestinal bleeding and call patient registration clerk GI if present. - Findings and recommendations were discussed with patient immediately following the procedure in PACU - Findings and recommendations to be conveyed to primary team. Indication Gastrointestinal hemorrhage, unspecified gastrointestinal hemorrhage type Medications See anesthesia record for anesthesia administered medications. Staff Staff Role Sofia Mcdowell, Yannick Chavez CRNA Endo Overhead Garage Door Hanger Rose Sommer MD Proceduralist Deirdre Kwok RN [...] LAB HEMATOLOGY METHOD 07/08/2024 6:54 AM EDT [facility] RBC Count 2.88(L) 4.60 - 6.10 10*6/uL LAB HEMATOLOGY METHOD 07/08/2024 6:54 AM EDT [facility] HGB 8.1(L) 13.7 - 17.5 g/dL LAB HEMATOLOGY METHOD 07/08/2024 6:54 AM EDT [facility] HCT 26.2(L) 40.0 - 51.0 % LAB HEMATOLOGY METHOD 07/08/2024 6:54 AM EDT [facility] Platelet Count 135(L) 155 - 369 10*3/uL LAB HEMATOLOGY METHOD 07/08/2024 6:54 AM EDT [facility] MCV 91 79 - 98 fL LAB HEMATOLOGY METHOD 07/08/2024 6:54 AM EDT [facility] MCH 28.1 26.0 - 32.0 pg LAB HEMATOLOGY METHOD 07/08/2024 6:54 AM EDT [facility] MCHC 30.9 30.7 - 35.5 g/dL LAB HEMATOLOGY METHOD 07/08/2024 6:54 AM EDT [facility] RDW 15.5(H) 11.5 - 14.5 % LAB HEMATOLOGY METHOD 07/08/2024 6:54 AM EDT [facility] MPV 8.5(L) 8.8 - 12.5 fL LAB HEMATOLOGY METHOD 07/08/2024 6:54 AM EDT [facility] nRBC 0.0 <=0.0 per 100 WBCs LAB HEMATOLOGY METHOD 07/08/2024 6:54 AM EDT [facility] Blood Venous blood specimen / Unknown Venipuncture / Unknown 07/08/2024 6:40 AM EDT 07/08/2024 6:47 AM EDT us Vanessa Apollo GLEASON LAB BLOOD ORDERABLES Final Resu lt [facility] [address] [place] [address] * PERIPHERAL IV ([employer] LINK) (07/07/2024 11:40 [...] Patient Comments: Pertinent imaging sent via PACS us Vanessa Bustillos MD IV THERAPY ORDERABLES Final Res ult * Acute Hepatitis Panel (06/24/2024 12:17 AM EDT) Pathologist [facility] [place] Hepatitis B Surf Antigen Negative Negative 06/24/2024 1:35 AM EDT [facility] Hepatitis C Antibody Negative Negative 06/24/2024 1:35 AM EDT [facility] Hepatitis A Antibody IgM Negative Negative 06/24/2024 1:35 AM EDT [facility] Hepatitis B Core Antibody IgM Negative Negative 06/24/2024 1:35 AM EDT [facility] Blood Venous blood specimen / Unknown Venipuncture / Unknown 06/24/2024 12:17 AM EDT 06/24/2024 12:31 AM EDT us Shemarlaura Ogden PA LAB BLOOD ORDERABLES Final R esult [facility] [address] [place] [address] * Hemoglobin A1c (06/24/2024 12:17 AM EDT) Hemoglobin A1c 5.3 <5.7 % 06/24/2024 7:20 AM EDT [facility] Blood Venous blood specimen / Unknown Venipuncture / Unknown 06/24/2024 12:17 AM EDT 06/24/2024 12:31 AM EDT Narrative [facility] - 06/24/2024 7:20 AM EDT HA1C Interpretive Data: Diagnosis of Diabetes: Diabetic > or = 6.5% Pre-diabetic 5.7 to 6.4% Non-diabetic < or = 5.6% Glycemic Targets for Type I and Type II Diabetics: Non- Adults <7.0% Adults <6.0% Children and Adolescents <7.5% Source: [place] [employer]. Standards of medical care in diabetes,2017. Diabetes Care.2017:40 (suppl 1):S1-S135. Shemar K Melvi PA LAB BLOOD ORDERABLES Final R esult [facility] [address] [place] [address] from Last 3 Months or Most Recently Relevant to Health Maintenance Additional Health Concerns Active Problems Noted Date Diagnosed Date Autogenerated Problem 06/25/2024 Autogenerated Problem 07/08/2024 Insurance [place]ICA[place] MEDICARE Advance Directives * Full Code (Latest Code Status on File) Date Activated Date Inactivated Comments 06/25/2024 11:20 AM 07/10/2024 1:55 PM Question Answer Comments I have reviewed the capacity from the link above and, if needed, have updated to appropriate status: Yes Care Teams Grid Casting Machine Operator Helper Relationship Specialty Start Date End Date Eric Maria MD [address] [place] [id number] PCP - General 11/04/20
--- OUTSIDE RECORDS SUMMARY | 2024-10-07 11:38 | XMS_ITS | Encounter Summary ---
Author Organization [facility] Address [address] [place] [address] Care Team Providers Care Rv Parts And Service Director Name Role Phone Eric Maria MD Primary [...] and Family Not on file 06/24/2024 Attends [employer] Not on file 06/24 Active Member [...] any time in the past 12 m [facility], were you homeless or living in a alf (including now)? No 06/24/2024 Utilities Answer Date [...] Description 10/24/2024 10:45 AM EDT Office Visit [facility] Medicine Specialties [address] [place] [address] Jennifer Barber APRN, DNP [address] [facility] [address] [place] [address] 11/21/2024 9:30 AM EDT Office Visit [facility] [address], [address] [place] [address] Chu Null MD [address] [place] [address] 09/11/2025 10:00 AM EDT Ancillary Procedure [facility] Medicine [facility] [address] [place] [address] 09/11/2025 11:00 AM EDT Office Visit [place] [address] [place] [address] Jeff Longoria MD [address] [place] [address] documented as of this encounter [...] documented as of this encounter Care Teams Rv Parts And Service Director Relationship Specialty Start Date End Date Eric Maria MD [address] [place] [id number] PCP - General 11/04/20 documented as of this encounter
--- OUTSIDE RECORDS SUMMARY | 2024-10-07 11:38 | XMS_ITS | Encounter Summary ---
Author Organization [facility] Address [address] [place] [address] Care Team Providers Care Farrowing Worker Name Role Phone Eric Maria MD Primary Care Provider Encounter Details Date Type Department Care Team (Late st Contact Info) Description 05/26/2024 Orders Only External Location [address] [place] [address] Provider, External Social History Tobacco Use Types [...] Description 10/24/2024 10:45 AM EDT [facility] [address] [place] [address] Jennifer Barber, DISPOSAL MAN, DNP [address] [place] [phone] 11/21/2024 9:30 AM EDT Office Visit [facility] [address] [place] [address] Chu Null MD [address] [place] [address] 09/11/2025 10:00 AM EDT Ancillary Procedure [facility] Medicine Specialties [address], [address] [place] [address] 09/11/2025 11:00 AM EDT Office Visit [place] [address] [place] [address] Jeff Longoria MD [address] [place] [address] documented as of this encounter [...] documented as of this encounter Care Teams Farrowing Worker Relationship Specialty Start Date End Date Eric Maria MD [address] [place] [id number] PCP - General 11/04/20 documented as of this encounter
--- OUTSIDE RECORDS SUMMARY | 2024-10-07 11:38 | XMS_ITS | Encounter Summary ---
Author Organization [facility] Address [address] [place] [address] Care Team Providers Care Sanitation Worker Cleaning Machinery Name Role Phone Eric Maria MD Primary Care Provider [phone] Encounter Details Date Type Department Care Team (Late st Contact Info) Description 05/31/2024 Orders Only External Location [address] [place] [address] Provider, External Social History Tobacco Use Types [...] Description 10/24/2024 10:45 AM EDT Office Visit [place] [facility] Medicine Specialties [address] [place] [address] Jennifer Barber, [employer], DNP [address] [place] [id number] 11/21/2024 9:30 AM EDT Office Visit [facility] [address] [place] [address] Chu Null MD [address] [place] [address] 09/11/2025 10:00 AM EDT Ancillary Procedure [facility] [address] [place] [address] 09/11/2025 11:00 AM EDT Office Visit [facility] [id number] [place] [address] Jeff Longoria MD [address] [place] [address] documented as of this encounter [...] documented as of this encounter Care Teams Sanitation Worker [employer] Relationship Specialty Start Date End Date Eric Maria MD [address] [place] [id number] PCP - General 11/04/20 documented as of this encounter
--- OUTSIDE RECORDS SUMMARY | 2024-10-07 11:38 | XMS_ITS | Encounter Summary ---
Author Organization [facility] Address [address] [place] [address] Care Team Providers Care Agriculture Research Director Name Role Phone Eric Maria MD Primary Care Provider Encounter Details Date Type Department Care Team ([facility] st Contact Info) Description 06/24/2024 Lab Requisition [facility] [address] [place] [address] Mirza Reyna MD [address] [facility] [address] [place] [phone] Encounter for general adult medical examination without [...] th e electric, gas, oil, or water [employer] threatened to shut off services in your [...] Description 10/24/2024 10:45 AM EDT Office Visit [facility] [address], 2nd [place] [address] Jennifer Barber APRN, OMAR [address] [place] [phone] 11/21/2024 9:30 AM EDT Office Visit [facility] [address], 1[address] [place] [address] Chu Null MD [address] [facility] [address] [place] [address] 09/11/2025 10:00 AM EDT Ancillary Procedure [facility] [address], [address] [place] [phone] 09/11/2025 11:00 AM EDT Office Visit [address], [address] [place] [address] Jeff Longoria MD [address] [place] [address] documented as of this encounter Procedures Procedure Name Priority Date/Time Associated Diagnosis Comments MULTI DRUG RESISTANCE TEST Routine 06/24/2024 12:00 PM EDT Encounter for general adult medical examination without abnormal findings documented in this encounter Results * Multi Drug Resistance Test (06/24/2024 12:00 PM EDT) Culture No Multi Drug Resistant Organisms Isolated 06/25/2024 1:21 PM EDT [facility] Swab (Nares and Dhara Rectal) 06/24/2024 12:00 PM EDT 06/24/2024 2:24 PM EDT us Mirza Reyna MD LAB MICROBIOLOGY - GEN ERAL ORDERABLES Final Result [facility] [address] [place] [address] documented in this encounter Visit Diagnoses Diagnosis [...] documented as of this encounter Care Teams Agriculture Research Director Relationship Specialty Start Date End Date Eric Maria MD [address] [place] [address] PCP - General 11/04/20 documented as of this encounter
--- OUTSIDE RECORDS SUMMARY | 2024-10-07 11:38 | XMS_ITS | Encounter Summary ---
Author Organization [facility] Address [address] [place] [address] Care Team Providers Care Trackless Trolley Driver Name Role Phone Eric Maria MD Primary Care Provider Encounter Details Date Type Department Care Team (Late st Contact Info) Description 05/25/2024 Orders Only External Location [address] [place] [address] Provider, External Social History Tobacco Use Types [...] Description 10/24/2024 10:45 AM EDT [facility] [address], 2nd [place] [address] Jennifer Barber, RETAIL INVENTORY CONTROL CLERK, DNP [address] [place] [phone] 11/21/2024 9:30 AM EDT Office Visit [facility] [address], 1[address] [place] [address] Chu Null MD [address] [place] [address] 09/11/2025 10:00 AM EDT Ancillary Procedure [facility] [address], [address] [place] [address] 09/11/2025 11:00 AM EDT Office Visit [place] [address], [address] [place] [address] Jeff Longoria MD [address] [place] [address] documented as of this encounter [...] documented as of this encounter Care Teams Trackless Trolley Driver Relationship Specialty Start Date End Date Eric Maria MD [address] [place] [address] PCP - General 11/04/20 documented as of this encounter
--- OUTSIDE RECORDS SUMMARY | 2024-10-07 11:38 | XMS_ITS | Encounter Summary ---
Author Organization [facility] Address [address] [place] [address] Care Team Providers Care Credit Clerk Name Role Phone Eric Maria MD Primary [...] and Family Not on file 06/24/2024 Attends [employer] Not on file 06/24 Active Member [...] time in the past [address] [facility], were you homeless or living in a halfway (including now)? No 06/24/2024 Utilities Answer Date [...] Description 10/24/2024 10:45 AM EDT Office Visit [facility] [address], [address]nd [place] [address] Jennifer Barber APRN, DNP [address] [place] [address] 11/21/2024 9:30 AM EDT Office Visit [facility] [address], [address]st [place] [address] Chu Null MD [address] [place] [address] 09/11/2025 10:00 AM EDT Ancillary Procedure [facility] [address], [address] [place] [address] 09/11/2025 11:00 AM EDT Office Visit [facility] [address], [address]nd [place] [address] Jeff Longoria MD [address] [place] [address] documented as of this encounter Goals Goal [...] documented as of this encounter Care Teams Credit Clerk Relationship Specialty Start Date End Date Eric Maria MD [address] [place] [address] PCP - General 11/04/20 documented as of this encounter
--- OUTSIDE RECORDS SUMMARY | 2024-10-07 11:38 | XMS_ITS | Encounter Summary ---
Author Organization [facility] Address [address] [place] [address] Care Team Providers Care Service Station Operator Name Role Phone Eric Maria MD Primary Care Provider Encounter Details Date Type Department Care Team (Late st Contact Info) Description 05/27/2024 Orders Only External Location [address] [place] [address] Provider, External Social History Tobacco Use Types [...] Visit [facility] [address], [address] [place] [address] Jennifer Barber, OFFICE CLIN ASST, DNP [address] [place] [phone] 11/21/2024 9:30 AM EDT Office Visit [facility] [address], [address] [place] [address] Chu Null MD [address] [place] [address] 09/11/2025 10:00 AM EDT Ancillary Procedure [facility] [address], [address] [place] [address] 09/11/2025 11:00 AM EDT Office Visit [place] [address], [address] [place] [address] Jeff Longoria MD [address] [place] [address] documented as of this encounter [...] documented as of this encounter Care Teams Service Station Operator Relationship Specialty Start Date End Date Eric Maria MD [address] [place] [address] PCP - General 11/04/20 documented as of this encounter
--- OUTSIDE RECORDS SUMMARY | 2024-10-07 11:38 | XMS_ITS | Encounter Summary ---
Author Organization [facility] Address [address] [place] [address] Care Team Providers Care Senior Materials Scientist Name Role Phone Eric Maria MD Primary Care Provider Encounter Details Date Type Department Care Team (Late st Contact Info) Description 05/25/2024 Orders Only External Location [address] [place] [address] Provider, External Social History Tobacco Use Types [...] Visit [facility] [address], [address]nd [place] [address] Jennifer Barber, HOUSE PIPING INSPECTOR, DNP [address] [place] [phone] 11/21/2024 9:30 AM EDT Office Visit [facility] [address], [address] [place] [address] Chu Null MD [address] [place] [address] 09/11/2025 10:00 AM EDT Ancillary Procedure [facility] [address], [address] [place] [address] 09/11/2025 11:00 AM EDT Office Visit [facility] [address], [address] [place] [address] Jeff Longoria MD [address] [place] [address] documented as of this encounter [...] documented as of this encounter Care Teams Senior Materials Scientist Relationship Specialty Start Date End Date Eric Maria MD [address] [place] [address] PCP - General 11/04/20 documented as of this encounter
--- OUTSIDE RECORDS SUMMARY | 2024-10-07 11:38 | XMS_ITS | Encounter Summary ---
Author Organization [facility] Address [address] [place] [address] Care Team Providers Care Rocket Motor Tester Name Role Phone Eric Maria MD Primary Care Provider [phone] Reason for Visit * Reason Comments Med Refill Encounter Details Date Type Department Care Team (Late st Contact Info) Description 09/13/2024 Refill [place] [facility] [address], [address] [place] [address] Chris Stratton MBBS [address] [place] [address] Social History Tobacco Use Types Packs/Day Years [...] and Family Not on file 06/24/2024 Attends [employer] Not on file 06/24 Active Member [...] were you homeless or living in a long term (including now)? No 06/24/2024 Utilities Answer Date Recorded In the past 12 months has th e electric, gas, oil, or water [employer] threatened to shut off services in your [...] Description 10/24/2024 10:45 AM EDT Office Visit [facility] [address], [address]nd [place] [address] Jennifer Barber APRN, OMAR [address] [place] [address] 11/21/2024 9:30 AM EDT Office Visit [facility] [address], [address]st [place] [address] Chu Null MD [address] [facility] [address] [place] [address] 09/11/2025 10:00 AM EDT Ancillary Procedure [facility] [address], 2nd [place] [address] 09/11/2025 11:00 AM EDT Office Visit [facility] [address], 2[address] [place] [address] Jeff Longoria MD [address] [place] [address] documented as of this encounter Goals Goal [...] documented as of this encounter Care Teams Rocket Motor Tester Relationship Specialty Start Date End Date Eric Maria MD [address] [place], [place] [address] [address] PCP - General 11/04/20 documented as of this encounter
--- NOTE | 2024-10-07 11:42 | HMH.PTEV ---
Physical Therapy Evaluation Rehab PT IP Evaluation Start: 10/06/24 13:03 Freq: .once Status: Active Protocol: Document 10/07/24 09:00 ROWENA (Rec: 10/07/24 11:42 MIKEMELY [id number]) Subjective/History History History 74-year-old male with past medical history of CAD, hypertension hyperlipidemia heart failure with reduced ejection fraction, prostate cancer who presents to the hospital due to complaints of shortness of breath as well as chest pain. Patient mentions he has been having midsternal chest pain with exertion, he also has noticed wheezing in his chest otherwise denied nausea vomiting diarrhea constipation dysuria fevers and chills. On further evaluation patient was found to have hemoglobin of 8, baseline hemoglobin around 12-13, patient denies any melanotic stools. Pt reports he lives with , 1 HIMA the home, and he is generally independent with all mobility with RW. His does assist him with ADLs at baseline. Subjective Subjective Pt reports no c/o this am and agrees to mobility assessment. [facility] How much help from another person do you currently need... Turning from your None back to your side while in a flat bed without using bedrails? Moving from lying on None back to sitting on the side of a flat bed without using bedrails? Moving to and from a None bed to a chair ( including a wheelchair)? Standing up from a None chair using your arms? (e.g., wheelchair, bedside chair) Walking in hospital None room? Climbing 3-5 steps A little with a railing? Mobility Score 23 Mobility Level [facility] Mobility 7 Walk 25 feet or more Mobility Calculator Rehab PT IP Eval Objective Appearance Patient Behavior Appropriate Patient Orientation Person,Place,Time Difficulty following none instructions Speech Pattern Clear Ambulation Patient Able to Yes Ambulate Ambulation Observation IP General Gait Shuffling Step Pattern Observation Ambulation Distance 15 (feet) Ambulation Assistive Rolling Walker Device Ambulation Ability Supervision/Stand by Balance Ability to Arise Able, uses arms to help Sitting Balance Steady, safe Standing Balance Steady, wide stance Dynamic Sitting Good Balance Ability Dynamic Standing Fair Balance Ability Transfers Bed Transfer Ability Supervision/Stand by Chair Transfer Supervision/Stand by Ability Sit to Stand Bed Supervision/Stand by Transfer Ability Sit to Stand Chair Supervision/Stand by Transfer Ability Rehab PT IP prob,goals,plan Problems Date of Evaluation: 10/07/24 PT IP Problems Transfers,Gait Rehab Potential Rehab Potential Good Plan PT Intervention Plan Transfers,Gait,Therapeutic Exercise PT Plan Frequency Daily Duration LOS Discharge Goals Sit to Stand Chair Independent Transfer Ability Ambulation Assistive Rolling Walker Device Ambulation Distance 30 (feet) Discharge Plan PT Discharge Plan Pt is currently appropriate to return home once medically stable for d/c. Skilled acute therapy is indicated in order to improve transfers and ambulation to aid pt return to [facility]. Eval Complexity Eval Charge Codes 39306 - High Complexity PHYSICIAN CERTIFICATION: I certify the specified therapy services for Gerry Pollock are required, authorized, and reviewed every 30 days.
[2024-10-07] MEDS: AZITHROMYCIN 500 MG in 0.9 % SODIUM CHLORIDE 250 ML 250 MG IV (11:51)
--- NOTE | 2024-10-07 11:52 | CARE MANAGER ---
Addendum entered by Sharon Canada RN 10/07/24 13:35: They have requested to use [facility] equipment in [place]. Will fax info upon discharge. Original Note: Patient requires the use of a walker for aid with ambulation. He has a mobility impairment that cannot be corrected with a cane.
--- NOTE | 2024-10-07 12:46 | US_ITS ---
FINAL REPORT CLINICAL HISTORY: eval liver architecture COMPARISON: None FINDINGS: Sonographic images of the right upper quadrant were obtained. The pancreas is partially obscured. Hyperechoic areas in the liver are punctate and probably represent granulomas. Extensive sludge and stones are seen in the gallbladder. No definite gallbladder wall thickening. There is no evidence of biliary ductal dilatation.The common duct measures 3 mm. Limited images of the right kidney are unremarkable. Large pleural effusion. IMPRESSION: Extensive sludge and stones in the gallbladder with no definite gallbladder wall thickening or biliary ductal dilatation. Reviewed, Interpreted and Dictated by Bossman Baron MD Transcribed by Shanon Chau Authenticated and [facility]
--- NOTE | 2024-10-07 13:53 | P.PN_ITS ---
Subjective *Date: 10/07/24 *Time: 19:17 Interval history: Patient feels weak today. Was on room air during morning rounds. Has intermittently been on and off submental excision. Satting in the 90s. Denies any active bleeding, hematemesis, melenic stools. Responding well to diuretics with significant urine output. Over 3 L out so far today. No nausea or vomiting. Alert and oriented. at bedside Medical Exam Vital signs and Labs for Last 24 Hours: Vital Signs Temp Pulse Pulse Resp BP Pulse Ox O2 Del Method 10/07/24 13:00 Room Air 10/07/24 12:00 97.8 F 60 16 129/56 L 96 Room Air 10/07/24 11:00 Room Air 10/07/24 09:29 60 10/07/24 09:29 64 10/07/24 09:00 Room Air 10/07/24 08:00 Room Air 10/07/24 08:00 110 H 10/07/24 07:55 98.2 F 80 16 147/66 H 90 L Room Air 10/07/24 06:53 Room Air 10/07/24 05:00 Room Air 10/07/24 04:00 98.1 F 66 18 139/50 L 93 L Room Air 10/07/24 04:00 60 10/07/24 03:00 Room Air 10/07/24 01:00 Room Air 10/07/24 00:00 60 10/07/24 00:00 98.7 F 61 16 128/53 L 92 L Room Air 10/06/24 23:00 Room Air 10/06/24 21:00 Room Air 10/06/24 20:00 Room Air 10/06/24 20:00 95 H 10/06/24 20:00 98.1 F 81 18 144/86 H 92 L Room Air 10/06/24 18:46 Room Air 10/06/24 17:00 Room Air 10/06/24 16:00 98.7 F 72 22 148/82 H 92 L Room Air 10/06/24 16:00 70 10/06/24 15:00 Room Air 10/06/24 14:32 98.4 F 68 26 H 138/88 98 Room Air Intake and Output 10/06/24 10/07/24 10/07/24 23:59 07:59 15:59 Intake Total 120 / 140 20 / 635 615 / 635 Output Total 1900 / 2400 1100 / 2350 1250 / 2350 Balance -1780 / -2260 -1080 / -1715 -635 / -1715 Intake: Intake, Oral Amount 120 / 120 615 / 615 Intake, Other Amount Output: Output, Urine Amount 1900 / 2400 1100 / 2350 1250 / 2350 Other: Intake, Other Source Saline Solution Number of Unmeasured Voids 0 0 Weight 74.616 kg Patient Weight 10/07/24 23:59 Weight 74.616 kg Laboratory Results - last 24 hr 10/06/24 14:05: Troponin I < 0.01, Procalcitonin 0.048 10/06/24 16:28: Stool Occult Blood Positive A 10/06/24 16:50: Troponin I 0.01 10/06/24 20:06: POC Glucose 180 H 10/06/24 20:25: Hgb 8.3 L, Hct 27.0 L, Blood Type A Negative, Antibody Screen Negative, Crossmatch (AHG) See Detail 10/07/24 05:49: POC Glucose 120 H 10/07/24 08:01: WBC 3.7 L D, RBC 3.73 L, Hgb 8.9 L, Hct 29.8 L, MCV 79.9 L, MCH 23.9 L, MCHC 29.9 L, RDW 16.5, Plt Count 141 L, MPV 9.0, Neut % (Auto) 62.1, Lymph % (Auto) 23.1, [place] % (Auto) 10.1 H, Eos % (Auto) 4.1, Baso % (Auto) 0.3, Neut # (Auto) 2.3, Lymph # (Auto) 0.9, [place] # (Auto) 0.4, Eos # (Auto) 0.2, Baso # (Auto) 0.0, PT 14.1 H, INR 1.29 H, Sodium 137, Potassium 3.0 L, Chloride 102, Carbon Dioxide 29, Anion Gap 9.0, BUN 9, Creatinine 0.70, Estimated Creat Clear 67, Estimated GFR 110, Est GFR ( Amer) 133, Glucose 159 H D, Calcium 9.5 10/07/24 08:42: POC Glucose 191 H 10/07/24 10:55: POC Glucose 194 H I & O for Labs for Last 24 Hours: Intake & Output 10/04/24 10/05/24 10/06/24 10/07/24 23:59 23:59 23:59 23:59 Intake Total 120 / 140 635 / 635 Output Total 1900 / 2400 2350 / 2350 Balance -1780 / -2260 -1715 / -1715 Weight 73.198 kg 74.616 kg Microbiology Reports for the Last 24 Hours: Microbiology 10/06/24 10:23 Blood Blood Culture - Preliminary NO GROWTH AFTER 24 HOURS 10/06/24 10:18 Blood Blood Culture - Preliminary NO GROWTH AFTER 24 HOURS Constitutional: Present no acute distress, thin, chronically ill appearing and cooperative Head: Present atraumatic and normocephalic ENT: Present normal exam Respiratory: Present crackles (Bilateral posterior lung lynne), diminished air movement (Bases bilaterally) and normal respiratory effort; Absent rhonchi or wheezes Cardiac: Present Reg Rate and Rhythm GI: Present soft, tenderness (Mild epigastric) and normal bowel sounds; Absent distention Extremities: Present normal inspection, full ROM and edema (1+ bilateral lower extremity edema) Skin: Present intact and pallor; Absent erythema Neuro: Present Grossly Intact, alert, awake, oriented x 3 and moves all extremities Assessment and Plan *Assessment and plan (1) Acute on chronic heart failure with preserved ejection fraction (HFpEF): Status: Acute Category: Medical Code(s): I50.33 - Acute on chronic diastolic (congestive) heart failure (2) Anemia: Status: Acute Qualifiers: Anemia type: iron deficiency Iron deficiency anemia type: chronic blood loss Qualified Code(s): D50.0 - Iron deficiency anemia secondary to blood loss (chronic) Category: Medical Code(s): D64.9 - Anemia, unspecified (3) HTN (hypertension): Status: Chronic Qualifiers: Hypertension type: essential hypertension Qualified Code(s): I10 - Essential (primary) hypertension Category: Medical Code(s): I10 - Essential (primary) hypertension (4) HLD (hyperlipidemia): Status: Chronic Qualifiers: Hyperlipidemia type: other hyperlipidemia Qualified Code(s): E78.49 - Other hyperlipidemia Category: Medical Code(s): E78.5 - Hyperlipidemia, unspecified (5) CAD (coronary artery disease): Status: Chronic Qualifiers: Associated angina: without angina Coronary Disease-Associated Artery/Lesion type: [place] artery [place] vs. transplanted heart: [place] heart Qualified Code(s): I25.10 - Atherosclerotic heart disease of [place] coronary artery without angina pectoris Category: Medical Code(s): I25.10 - Atherosclerotic heart disease of [place] coronary artery without angina pectoris (6) Pleural effusion: Status: Acute Category: Medical Code(s): J90 - Pleural effusion, not elsewhere classified (7) Pancytopenia: Status: Acute Category: Medical Code(s): D61.818 - Other pancytopenia (8) Atrial fibrillation: Status: Chronic Qualifiers: Atrial fibrillation type: longstanding persistent Qualified Code(s): I48.11 - Longstanding persistent atrial fibrillation Category: Medical Code(s): I48.91 - Unspecified atrial fibrillation Plan 74-year-old male with multiple comorbidities including Parkinson's, heart failure with preserved ejection fraction, A-fib, chronic anticoagulation, metastatic prostate cancer and recent prolonged hospitalization due to hip fracture and complications thereafter. Presented with shortness of breath and chest pain. Found to have significant anemia concerning for blood loss anemia. Stool occult positive. Also had moderate bilateral pleural effusions and elevated BNP. Medicine consulted for admission. Cardiology evaluated today along with surgery. Will have pulmonology evaluate tomorrow and GI to assist with scope. Responding to diuresis. Hemoglobin holding stable in the mid 8 range. Problems addressed as follows: Acute on chronic HFpEF History of A-fib Bilateral pleural effusions -BNP elevated to 5000. Initiated on Lasix 40 mg IV twice daily. Having very good response with negative at least 3 L out. Kidney function stable with BUN 9, creatinine 0.7. -Potassium low at 3.0, replacing per protocol -Limited echo obtained shows preserved ejection fraction. - Discussed case with cardiology, continue diuresis. Recommend eval of pleural effusions. Consulted pulmonology to evaluate in the morning. Patient has history of sarcoidosis and metastatic prostate cancer to his lymph nodes as he says. - Review of patient's previous images over the past several years shows CT of chest in 2022 with multiple noncalcified nodules and an enlarged lymph node. Patient states he is aware of this and this has been followed with workup for sarcoid previously. He believes he has had a biopsy before. - Continue with metoprolol tartrate 25 mg twice daily Iron deficiency anemia with acute on chronic loss Suspected GI bleed History of peptic ulcer disease - Hemoglobin 8.9 this morning. Transfusion threshold hemoglobin less than 7. - Stool occult positive. Repeat H&H this evening. - Repeat CBC, CMP, magnesium ordered for the morning. Typed and crossed 2 units, holding at this time. Hemoglobin seems to be improving with diuresis. - White count 3.7, platelets 141. Holding blood thinners as he is on Plavix and Xarelto for history of CAD, CHF, A-fib. - Patient reports recent scope within the past 2 months showing gastric and esophageal ulcers, one had stigmata of bleeding. - Continue sucralfate 10 mg 4 times a day - Continue pantoprazole 40 mg IV twice daily - Administer Venofer 200 mg IV once Parkinson's: Continue carbidopa levodopa per home regimen 25/100 one tablet 3 times a day Diabetes: Continue glargine 25 units daily. Sliding scale insulin and fingersticks ACHS Mirtazapine 7.5 mg nightly to aid with sleep History of metastatic prostate cancer. Currently undergoing chemical castration with bicalutamide. Will continue if patient brings in his home regimen DVT prophylaxis-SCDs for now
--- NOTE | 2024-10-07 14:54 | EXP.CARD.CON ---
History of Present Illness History of Present Illness Consult date: 10/07/24 Requesting physician: Riley Barber Consult reason: congestive heart failure Chief complaint: SOA History of present illness: 74-year-old white male longstanding patient established with our office with a history of NSTEMI and stenting in 2018 and RCA stenting in 2023. He has a [employer]ER of second diagonal. Also has atrial fibrillation and BiV pacemaker, HFrEF 45%, sarcoidosis managed at , metastatic prostate cancer managed at , diabetes. Last echo was in our office in May showing normal BiV function with mild RV dilation and mild biatrial dilation. Patient presented to the emergency room complaining of wheezing and pleuritic chest pain. CT chest reveals bilateral lower lobe consolidation and large bilateral pleural effusions. He has pancytopenia, elevated INR at 1.75. Elevated D-dimer but no PEs noted on CT. Serial troponins are normal, proBNP 5000, he has a positive occult stool with hemoglobin of 8.3. Limited repeat echo here shows no change. He has diuresed over 3 L since admission and O2 is stable at 93% on room air. [facility] Disclaimer: The information contained in this section may have been updated after the patient was seen, as this information can be updated by other users. Medical History Chronic HFrEF (heart failure with reduced ejection fraction) Abnormal cardiovascular stress test Atypical angina Pericardial effusion Prostate cancer Displacement of atrial pacemaker leads Cardiomyopathy Typical angina SOB (shortness of breath) HTN (hypertension) CAD (coronary artery disease) ST elevation myocardial infarction (STEMI) Cerebrovascular accident Surgical History History of cardiac catheterization Family History Other Family history of cancer Social History Smoking Status: Never smoker second hand exposure: No alcohol intake: current substance use type: denies use current occupational status: retired Travel in the last 8 weeks?: Inside the [place] household members: spouse housing: house current occupational exposures/hazards: No caffeine: Yes Have you lived/traveled outside [place] in past 30 days?: No Contact w/someone who lives/traveled outside US past 30 days?: No Exposure to someone with infectious disease in past 14 days?: No Do you have a fever (greater than 100.4 F or 38 C)?: No Have you tested positive for COVID-19?: No Exposed to someone with COVID-19 in past 14 days?: No Do you have a sore throat?: No Do you have a cough?: No Do you have any weakness?: Yes Do you have any diarrhea?: No Are you experiencing any unusual bleeding?: No Do you have any muscle aches/pain?: Yes Do you have any abdominal pain?: No Are you experiencing loss of taste or smell?: No Review of Systems Constitutional Constitutional: Reports fatigue and Reports weakness Eyes Eyes: Denies loss of vision ENT Ears, Nose, Mouth, and Throat: Denies hearing loss and Denies vertigo *Cardiovascular Cardiovascular: Denies chest pain, Reports dyspnea and Denies syncope *Respiratory Respiratory: Denies cough, Reports dyspnea and Reports wheezing *Gastrointestinal Gastrointestinal: Denies change in stool character, Denies nausea and Denies vomiting *Genitourinary Genitourinary: Denies difficulty urinating *Musculoskeletal Musculoskeletal: Denies muscle weakness Integumentary/Breasts Skin/Breast: Denies changing lesions *Neurologic Neurologic: Denies loss of vision, Denies syncope, Denies vertigo and Reports weakness Endocrine Endocrine: Reports fatigue Allergic/Immunologic Allergic/Immunologic: Reports wheezing Exam Data for Last 24 hours Vital signs and Labs for Last 24 Hours: Temp Pulse Resp BP Pulse Ox O2 Del Method 97.8 F 60 16 129/56 L 96 Room Air 10/07/24 12:00 10/07/24 12:00 10/07/24 12:00 10/07/24 12:00 10/07/24 12:00 10/07/24 13:00 Laboratory Results - last 24 hr 10/06/24 14:05: Troponin I < 0.01, Procalcitonin 0.048 10/06/24 16:28: Stool Occult Blood Positive A 10/06/24 16:50: Troponin I 0.01 10/06/24 20:06: POC Glucose 180 H 10/06/24 20:25: Hgb 8.3 L, Hct 27.0 L, Blood Type A Negative, Antibody Screen Negative, Crossmatch (AHG) See Detail 10/07/24 05:49: POC Glucose 120 H 10/07/24 08:01: WBC 3.7 L D, RBC 3.73 L, Hgb 8.9 L, Hct 29.8 L, MCV 79.9 L, MCH 23.9 L, MCHC 29.9 L, RDW 16.5, Plt Count 141 L, MPV 9.0, Neut % (Auto) 62.1, Lymph % (Auto) 23.1, [place] % (Auto) 10.1 H, Eos % (Auto) 4.1, Baso % (Auto) 0.3, Neut # (Auto) 2.3, Lymph # (Auto) 0.9, [place] # (Auto) 0.4, Eos # (Auto) 0.2, Baso # (Auto) 0.0, PT 14.1 H, INR 1.29 H, Sodium 137, Potassium 3.0 L, Chloride 102, Carbon Dioxide 29, Anion Gap 9.0, BUN 9, Creatinine 0.70, Estimated Creat Clear 67, Estimated GFR 110, Est GFR ( Amer) 133, Glucose 159 H D, Calcium 9.5 10/07/24 08:42: POC Glucose 191 H 10/07/24 10:55: POC Glucose 194 H I & O for Last 24 hours: Intake & Output 10/04/24 10/05/24 10/06/24 10/07/24 23:59 23:59 23:59 23:59 Intake Total 120 / 140 635 / 635 Output Total 1900 / 2400 2350 / 2350 Balance -1780 / -2260 -1715 / -1715 Weight 161 lb 6 oz 164 lb 8 oz Microbiology Reports for the Last 24 Hours: Microbiology 10/06/24 10:23 Blood Blood Culture - Preliminary NO GROWTH AFTER 24 HOURS 10/06/24 10:18 Blood Blood Culture - Preliminary NO GROWTH AFTER 24 HOURS Meds Home Medications and Allergies Home Medications ?Medication ?Instructions ?Recorded ?Confirmed ?Type cyanocobalamin (vitamin B-12) 1,000 mcg PO DAILY Supplement 06/09/22 10/06/24 History 1,000 mcg tablet latanoprost 0.005 % eye drops 1 drp Eye-Both HS 09/20/23 10/06/24 History clopidogrel 75 mg tablet 75 mg PO DAILY #90 tabs 10/18/23 10/06/24 Rx carbidopa 25 mg-levodopa 100 mg 1 tab PO TID 02/07/24 10/06/24 History tablet acetaminophen 500 mg tablet 1,000 mg PO .THREE TIMES WEEKLY 10/06/24 10/06/24 History bicalutamide 50 mg tablet 50 mg PO DAILY 10/06/24 10/06/24 History insulin glargine 100 unit/mL (3 25 unit SQ DAILY 10/06/24 10/06/24 History mL) subcutaneous pen (Lantus Solostar U-100 Insulin) melatonin 3 mg tablet 3 mg PO HS 10/06/24 10/06/24 History metoprolol tartrate 25 mg tablet 25 mg PO BID 10/06/24 10/06/24 History mirtazapine 15 mg tablet 7.5 mg PO HS 10/06/24 10/06/24 History nitroglycerin 0.4 mg sublingual 0.4 mg sublingual Q5MINP PRN Chest 10/06/24 10/06/24 History tablet Pain pantoprazole 40 mg tablet,delayed 40 mg PO BID 10/06/24 10/06/24 History release potassium chloride 20 mEq 20 meq PO DAILY 10/06/24 10/06/24 History tablet,extended release(part/cryst) rivaroxaban 20 mg tablet (Xarelto) 20 mg PO QPMWITHMEAL 10/06/24 10/06/24 History sucralfate 100 mg/mL oral 10 ml PO QID 10/06/24 10/06/24 History suspension New Prescriptions to Start Prescriptions: Allergies Allergy/AdvReac Type Severity Reaction Status Date / Time No Known Allergies Allergy Verified 05/14/24 10:01 Assessment and Plan *Assessment and plan (1) Acute on chronic heart failure with preserved ejection fraction (HFpEF): Status: Acute Category: Medical Code(s): I50.33 - Acute on chronic diastolic (congestive) heart failure (2) Pleural effusion: Status: Acute Category: Medical Code(s): J90 - Pleural effusion, not elsewhere classified (3) Pancytopenia: Status: Acute Category: Medical Code(s): D61.818 - Other pancytopenia (4) CAD (coronary artery disease): Status: Chronic Qualifiers: Coronary Disease-Associated Artery/Lesion type: [place] artery [place] vs. transplanted heart: [place] heart Associated angina: without angina Qualified Code(s): I25.10 - Atherosclerotic heart disease of [place] coronary artery without angina pectoris Category: Medical Code(s): I25.10 - Atherosclerotic heart disease of [place] coronary artery without angina pectoris (5) Atrial fibrillation: Status: Chronic Qualifiers: Atrial fibrillation type: longstanding persistent Qualified Code(s): I48.11 - Longstanding persistent atrial fibrillation Category: Medical Code(s): I48.91 - Unspecified atrial fibrillation Plan Acute on chronic HFpEF - normal ECHO but hx of A-fib, PPM, CAD and here with HUNG, Large Bilat Pleural Effusions and ProBNP 5k - diuresing well with Lasix - will interrogate his device but largely normal ECHO here out of proportion to his large effusions - continue diuresis with Lasix - last device interrogation was in August, will repeat - add Farxiga and Aldactone Large Bilateral Pleural Effusions - HFpEF possibly contributing, but seems out of proportion - consider underlying pulm source, pt/family report metastatic prostate cancer to nodes pt has multiple prior enlarged nodes on CT chest here as far back as 2022 CAD - NSTEMI/PETEY 2018 and PETEY 2023, [employer] 2nd Diag - CCS = 0 - No WMA on ECHO here - EKG - A-fib with V-pacing PAF/SSS s/p Bi-V PPM - last interrogation was 08/2024 - showed 0% A-fib, AP 41% BVP 99% - Xarelto on hold due to GI bleed, pancytopenia, and elevated INR - continue metoprolol - EKG here shows what looks like A-fib and v-pacing Pancytopenia - WBC 2.9, Hgb 8.3, Plt 135 - etiology? - Plavix/Xarelto on hold with anemia, active GI bleed, and INR of 1.75 Elevated INR - Abd US pending Sarcoidosis - history unclear - presume Pulm and followed by [facility] Metastatic Prostate Cancer - recent spread to 'nodes' per family - details unclear - on Bicalutamide chemo Complex pt. Large effusions diuresing well with Lasix. Med adjustments as above. Worrisome picture with large bilateral effusions, metastatic cancer, pancytopenia, active GI bleed, elevated INR.
--- NOTE | 2024-10-07 15:31 | SW/DCPLANNER ---
Per PT no needs at this time.
[2024-10-07] MEDS: SPIRONOLACTONE 25MG TABLET 25 MG PO (16:03)
[2024-10-07] MEDS: DAPAGLIFLOZIN PROPANEDIOL 10 MG TABLET PO (16:03)
[2024-10-07 16:12] LABS: POC Glucose,Bedside 112 (70-110)
--- NOTE | 2024-10-07 16:19 | PC.NURSE ---
AOX4, VERY SOFT SPOKEN DURING CONVERSATION. PLACED ON 2LNC FOR SHORTNESS OF BREATH. O2 ORDERED FOR HOME.
--- NOTE | 2024-10-07 16:33 | CA_ITS ---
APPROVED REPORT EXAM: Comprehensive 2D, Doppler, and color-flow Echocardiogram I[employer] And Glaze Maker: Alondra Baxter RVT Ht: 5 ft 8 in Wt: 164lbs BSA: 1.88 BP: 130/63 mmHg Indications: CHEST PAIN SHORTNESS OF BREATH,CONGESTIVE HEART FAILURE 2D Dimensions IVSd 1.18 cm M: 0.6-1.2 LVEF (Visual) 61.30 % PWd 1.35 cm M: 0.6 - 1.2 LA Volume 29.50 mL LVDd 3.05 cm M: 4.2 - 5.9 LA Volume Index 15.69 mL/m2 (M/F) 16-34 LVDs 2.08 cm M: 2.5 - 4.0 M-Mode Dimensions LA Diam 3.01 cm (1.9-4.0) TAPSE 2.34 (<1.7) LV Diastology E Decel Time 247 (160-240 msec) E/A Ratio 0.8 Aortic Valve QUINN Index 1.42 cm2/m2 AoV Peak Joe. 143.0 (50-130 cm/s) AI PHT 1010.00 ms AO Peak GR. 8.20 mmHg AO Mean GR. 4.00 (<5 mmHg) AO VTI 22.7 (18-25 cm) QUINN (VTI) 2.72 (2.5-4.5 cm2) Mitral Valve MV E Max Joe. 73.0 (40-130 cm/s) MV A Velocity 96.0 (40-130 cm/s) E/A Ratio 0.77 MV PHT 72.0 ms Pulmonary Valve PV Peak Velocity 129.0 (50-150 cm/s) Left Ventricle The left ventricle is normal size. Left ventricular systolic function is normal. The left ventricular ejection fraction is within the normal range. There is increased left ventricular wall thickness. The septum is asynchronous. The left ventricular diastolic function is normal. LVEF is 55% Right Ventricle The right ventricle is mildly dilated. The right ventricular systolic function is normal. Atria The left atrium is mildly dilated. The right atrium is mildly dilated. There is no color Doppler evidence of interatrial shunt. Aortic Valve The aortic valve is mildly thickened. There is no hemodynamically significant aortic valvular stenosis. Mild aortic regurgitation is present. Mitral Valve The mitral valve is mildly thickened. No evidence of mitral valve stenosis. Mild mitral regurgitation is present. Tricuspid Valve The tricuspid valve leaflets are thin and pliable. Trace tricuspid regurgitation. There is insufficient TR jet to estimate RVSP. Pulmonic Valve The pulmonary valve is grossly normal in structure. Trace pulmonic valve regurgitation is present. Great Vessels The aortic root is normal in size. IVC is normal in size and collapses >50% with inspiration. Pericardium There is no pericardial effusion. Other Information Study Quality: Fair Conclusion Normal biventricular systolic function. Mild RV dilation. Mild biatrial dilation. Mild AI, mild MR. Electronically signed by : Lelia Em MD 10/07/2024 16:53:19
[2024-10-07] MEDS: CEFTRIAXONE 1 GM 1 GM in 0.9 % SODIUM CHLORIDE 50 ML IV (20:26)
[2024-10-07] MEDS: MELATONIN 5MG TABLET 5 MG PO (20:27)
[2024-10-07] MEDS: MIRTAZAPINE 15 MG TABLET 7.5 MG PO (20:27)
[2024-10-07 20:51] LABS: POC Glucose,Bedside 67 (70-110)
--- NOTE | 2024-10-07 21:25 | PC.NURSE ---
Upon routine glucose check at 2029, FSBS was 67. Pt asymptomatic for hypoglycemia. AOx4, denies dizziness or discomfort. Gave pt 8oz of orange juice and rechecked glucose at 2119. Glucose increased to 101. Pt is currently resting in bed with eyes open. Denies pain or any needs at this time. Respirations even and unlabored. Bed is low, locked, and call light is in reach. at bedside.
[2024-10-08] VITALS (11 sets, daily range): BP systolic 113–135; BP diastolic 50–64; PULSE 60–80; RESP 16–19; TEMP 36.2–37; O2SAT 91–100; BMI 21.6
--- NOTE | 2024-10-08 02:18 | PC.NURSE ---
Pt AOx4. On 2L nasal cannula from say shift after reporting being SOA. at bedside. Denies pain or any additional needs throughout shift. Respirations even and unlabored. Bed is low, locked, and call light is in reach.
[2024-10-08 04:00] LABS: POC Glucose,Bedside 101 (70-110)
[2024-10-08 05:28] LABS: POC Glucose,Bedside 69 (70-110)
[2024-10-08 06:30] LABS: Hematocrit 26.6 % (42.0-52.0); Hemoglobin 8.1 g/dL (14.1-18.0); Immature Granulocytes % 0.6 %; Mean Corpuscular HGB Conc 30.5 g/dL (31.8-35.4); Mean Corpuscular Hemoglobin 24.2 pg (27.0-31.2); Mean Corpuscular Volume 79.4 fl (80-94); Nucleated Red Blood Cells % 0 %; Platelet Count 139 K/mm3 (142-424); Red Blood Count 3.35 M/mm3 (4.60-6.20); Red Cell Distribution Width-SD 46.9 fL; White Blood Count 3.2 K/mm3 (4.8-10.8)
[2024-10-08 06:35] LABS: Chloride 102 mmol/L (98-107); Sodium 137 mmol/L (136-145)
[2024-10-08 06:36] LABS: Potassium 3.6 mmoL/L (3.5-5.1)
[2024-10-08 06:39] LABS: Anion Gap 6.6 mEq/L (5-15); Blood Urea Nitrogen 8 mg/dl (9-20); Calcium 9.2 mg/dl (8.4-10.2); Carbon Dioxide 32 mmol/L (22.0-30.0); Creatinine Clearance Estimated 60 mL/min (50-200); Creatinine,Serum 0.80 mg/dl (0.66-1.25); Estimated Glomerular Filt Rate 94 ml/min (>60); GFR (African American) 114 ML/MIN (>60); Glucose 99 mg/dl (74-100)
[2024-10-08 06:55] LABS: POC Glucose,Bedside 126 (70-110)
--- NOTE | 2024-10-08 07:08 | EXP.SURG.PN ---
Subjective Narrative: No appreciable drop in hemoglobin. Abdominal ultrasound done yesterday reveals hyperechoic areas in the liver with a large right pleural effusion, official reading pending still. No abdominal complaints. No clinical bleeding. Reviewed hemoglobin from a couple of months ago prior to discharge at [facility] which was 8.6. Exam Data for Last 24 hours Vital signs and Labs for Last 24 Hours: Temp Pulse Resp BP Pulse Ox O2 Del Method O2 Flow Rate 98.1 F 65 16 120/50 L 91 L Nasal Cannula 2 10/08/24 04:00 10/08/24 04:00 10/08/24 04:00 10/08/24 04:00 10/08/24 04:00 10/08/24 06:33 10/08/24 06:33 Laboratory Results - last 24 hr 10/07/24 08:01: WBC 3.7 L D, RBC 3.73 L, Hgb 8.9 L, Hct 29.8 L, MCV 79.9 L, MCH 23.9 L, MCHC 29.9 L, RDW 16.5, Plt Count 141 L, MPV 9.0, Neut % (Auto) 62.1, Lymph % (Auto) 23.1, [place] % (Auto) 10.1 H, Eos % (Auto) 4.1, Baso % (Auto) 0.3, Neut # (Auto) 2.3, Lymph # (Auto) 0.9, [place] # (Auto) 0.4, Eos # (Auto) 0.2, Baso # (Auto) 0.0, PT 14.1 H, INR 1.29 H, Sodium 137, Potassium 3.0 L, Chloride 102, Carbon Dioxide 29, Anion Gap 9.0, BUN 9, Creatinine 0.70, Estimated Creat Clear 67, Estimated GFR 110, Est GFR ( Amer) 133, Glucose 159 H D, Calcium 9.5 10/07/24 08:42: POC Glucose 191 H 10/07/24 10:55: POC Glucose 194 H 10/07/24 16:02: POC Glucose 112 H 10/07/24 20:29: POC Glucose 67 L 10/07/24 21:22: POC Glucose 101 10/08/24 05:20: POC Glucose 69 L 10/08/24 06:12: WBC 3.2 L, RBC 3.35 L, Hgb 8.1 L, Hct 26.6 L, MCV 79.4 L, MCH 24.2 L, MCHC 30.5 L, RDW 16.6, Plt Count 139 L, MPV 9.5, Neut % (Auto) 54.7, Lymph % (Auto) 21.6, [place] % (Auto) 13.4 H, Eos % (Auto) 9.1, Baso % (Auto) 0.6, Neut # (Auto) 1.8, Lymph # (Auto) 0.7, [place] # (Auto) 0.4, Eos # (Auto) 0.3, Baso # (Auto) 0.0, Sodium 137, Potassium 3.6, Chloride 102, Carbon Dioxide 32 H, Anion Gap 6.6, BUN 8 L, Creatinine 0.80, Estimated Creat Clear 60, Estimated GFR 94, Est GFR ( Amer) 114, Glucose 99 D, Calcium 9.2 10/08/24 06:29: POC Glucose 126 H I & O for Last 24 hours: Intake & Output 10/05/24 10/06/24 10/07/24 10/08/24 11:59 11:59 11:59 11:59 Intake Total 755 / 755 50 / 50 Output Total 3750 / 3750 1050 / 1050 Balance -2995 / -2995 -1000 / -1000 Weight 145 lb 164 lb 8 oz 146 lb 3 oz Microbiology Reports for the Last 24 Hours: Microbiology 10/06/24 10:23 Blood Blood Culture - Preliminary NO GROWTH AFTER 24 HOURS 10/06/24 10:18 Blood Blood Culture - Preliminary NO GROWTH AFTER 24 HOURS *Routine Abdominal Exam Abdominal: Present soft; Absent tenderness Progress Note: A&P Assessment and plan (1) Acute on chronic heart failure with preserved ejection fraction (HFpEF): Status: Acute (2) Anemia: Status: Acute (3) HTN (hypertension): Status: Chronic (4) HLD (hyperlipidemia): Status: Chronic (5) CAD (coronary artery disease): Status: Chronic (6) Pleural effusion: Status: Acute (7) Pancytopenia: Status: Acute (8) Atrial fibrillation: Status: Chronic Assessment and Plan Assessment and Plan for All Diagnoses:: Hemoglobin may be at recent baseline. Contributing factor for his shortness of breath may be pleural effusion. Gastroenterology consultation ordered.
[2024-10-08] MEDS: CARBIDOPA/LEVODOPA 25/100MG TABLET 1 EACH PO ×3 (09:27→20:54)
[2024-10-08] MEDS: DAPAGLIFLOZIN PROPANEDIOL 10 MG TABLET PO (09:27)
[2024-10-08] MEDS: METOPROLOL TARTRATE 25MG TABLET 25 MG PO ×2 (09:27→20:54)
[2024-10-08] MEDS: SPIRONOLACTONE 25MG TABLET 25 MG PO (09:27)
--- NOTE | 2024-10-08 09:27 | EXP.PULM.CON ---
History of Present Illness History of present illness: Mr. Pollock is a 74-year-old male history of CAD status post stenting on Plavix and Xarelto, CHF, atrial fibrillation, diabetes mellitus dyslipidemia cardiomyopathy reported history of prostate cancer presented to the ER with worsening shortness of breath and chest pain noted to have bilateral pleural effusions and pulmonary was called for further evaluation and management. Admitted progressively worsening respiratory distress for the last 2 to 3 months. Patient admits history of prostate cancer 3 years ago also admits recent spread with metastatic disease and started chemotherapy in May 2024. Never smoker. No significant secondhand smoke exposure. Not using oxygen supplementation or inhalers at baseline. [facility] Disclaimer: The information contained in this section may have been updated after the patient was seen, as this information can be updated by other users. Medical History (Updated 10/08/24 @ 11:12 by Keith Medina MD) Pleural effusion, bilateral Acute respiratory failure with hypoxia Chronic HFrEF (heart failure with reduced ejection fraction) Abnormal cardiovascular stress test Atypical angina Pericardial effusion Prostate cancer Displacement of atrial pacemaker leads Cardiomyopathy Typical angina SOB (shortness of breath) HTN (hypertension) CAD (coronary artery disease) ST elevation myocardial infarction (STEMI) Cerebrovascular accident Surgical History History of cardiac catheterization Family History Other Family history of cancer Social History Smoking Status: Never smoker second hand exposure: No alcohol intake: current substance use type: denies use current occupational status: retired Travel in the last 8 weeks?: Inside the [place] household members: spouse housing: house current occupational exposures/hazards: No caffeine: Yes Have you lived/traveled outside US in past 30 days?: No Contact w/someone who lives/traveled outside US past 30 days?: No Exposure to someone with infectious disease in past 14 days?: No Do you have a fever (greater than 100.4 F or 38 C)?: No Have you tested positive for COVID-19?: No Exposed to someone with COVID-19 in past 14 days?: No Do you have a sore throat?: No Do you have a cough?: No Do you have any weakness?: Yes Do you have any diarrhea?: No Are you experiencing any unusual bleeding?: No Do you have any muscle aches/pain?: Yes Do you have any abdominal pain?: No Are you experiencing loss of taste or smell?: No Review of Systems Constitutional Constitutional: Reports fatigue and Reports weakness Eyes Eyes: Denies itchy eyes and Denies loss of vision ENT Ears, Nose, Mouth, and Throat: Denies lip swelling, Denies throat swelling and Denies vertigo *Cardiovascular Cardiovascular: Reports dyspnea, Reports dyspnea on exertion and Denies syncope *Respiratory Respiratory: Denies change in phlegm color, Reports chest congestion, Reports cough, Reports dyspnea, Reports dyspnea on exertion, Denies excessive phlegm production, Denies hemoptysis, Denies pain on inspiration, Denies pain with cough and Denies wheezing *Gastrointestinal Gastrointestinal: Denies abdominal pain, Denies belching and Denies cramping *Musculoskeletal Musculoskeletal: Reports back pain, Reports myalgias and Reports other (No small joint swelling or Pain) *Neurologic Neurologic: Denies loss of vision, Denies syncope, Denies vertigo and Reports weakness Psychiatric Psychiatric: Denies homicidal ideation and Denies suicidal ideation Endocrine Endocrine: Reports fatigue and Denies heat intolerance Hematologic/Lymphatic Hematologic/Lymphatic: Denies easy bleeding and Denies lymphadenopathy Allergic/Immunologic Allergic/Immunologic: Denies itchy eyes, Denies lip swelling, Denies throat swelling and Denies wheezing Pulmonology Exam Inpatient Vital signs and Labs for Last 24 Hours: Temp Pulse Resp BP Pulse Ox O2 Del Method O2 Flow Rate 97.9 F 68 16 113/60 96 Nasal Cannula 2 10/08/24 08:26 10/08/24 08:26 10/08/24 04:00 10/08/24 08:26 10/08/24 08:26 10/08/24 08:26 10/08/24 08:26 Laboratory Results - last 24 hr 10/07/24 08:01: Sodium 137, Potassium 3.0 L, Chloride 102, Carbon Dioxide 29, Anion Gap 9.0, BUN 9, Creatinine 0.70, Estimated Creat Clear 67, Estimated GFR 110, Est GFR ( Amer) 133, Glucose 159 H D, Calcium 9.5 10/07/24 10:55: POC Glucose 194 H 10/07/24 16:02: POC Glucose 112 H 10/07/24 20:29: POC Glucose 67 L 10/07/24 21:22: POC Glucose 101 10/08/24 05:20: POC Glucose 69 L 10/08/24 06:12: WBC 3.2 L, RBC 3.35 L, Hgb 8.1 L, Hct 26.6 L, MCV 79.4 L, MCH 24.2 L, MCHC 30.5 L, RDW 16.6, Plt Count 139 L, MPV 9.5, Neut % (Auto) 54.7, Lymph % (Auto) 21.6, [place] % (Auto) 13.4 H, Eos % (Auto) 9.1, Baso % (Auto) 0.6, Neut # (Auto) 1.8, Lymph # (Auto) 0.7, [place] # (Auto) 0.4, Eos # (Auto) 0.3, Baso # (Auto) 0.0, Sodium 137, Potassium 3.6, Chloride 102, Carbon Dioxide 32 H, Anion Gap 6.6, BUN 8 L, Creatinine 0.80, Estimated Creat Clear 60, Estimated GFR 94, Est GFR ( Amer) 114, Glucose 99 D, Calcium 9.2 10/08/24 06:29: POC Glucose 126 H I & O for Labs for Last 24 Hours: Intake & Output 10/05/24 10/06/24 10/07/24 10/08/24 23:59 23:59 23:59 23:59 Intake Total 120 / 140 635 / 685 50 / 50 Output Total 1900 / 2400 2350 / 2350 550 / 550 Balance -1780 / -2260 -1715 / -1665 -500 / -500 Weight 161 lb 6 oz 164 lb 8 oz 146 lb 3 oz Microbiology Reports for the Last 24 Hours: Microbiology 10/06/24 10:23 Blood Blood Culture - Preliminary NO GROWTH AFTER 24 HOURS 10/06/24 10:18 Blood Blood Culture - Preliminary NO GROWTH AFTER 24 HOURS Constitutional: Present moderate distress Head: Present normocephalic and atraumatic ENT: Present normal exam, normal oropharynx and mucous membranes moist Neck: Present normal inspection and full ROM Respiratory: Present respiratory distress, distant breath sounds, diminished air movement and able to speak in complete sentences; Absent prolonged expiratory phase or wheezes Cardiac: Present S1/S2, Tachycardia and radial pulses present GI: Present soft and distention; Absent tenderness or guarding Skin: Present intact; Absent cyanosis or jaundice Neuro: Present alert, awake and oriented x 3 Extremities: Present normal inspection; Absent clubbing or cyanosis Psychiatric: Present normal affect and cooperative Meds Home Medications and Allergies Home Medications ?Medication ?Instructions ?Recorded ?Confirmed ?Type cyanocobalamin (vitamin B-12) 1,000 mcg PO DAILY Supplement 06/09/22 10/06/24 History 1,000 mcg tablet latanoprost 0.005 % eye drops 1 drp Eye-Both HS 09/20/23 10/06/24 History clopidogrel 75 mg tablet 75 mg PO DAILY #90 tabs 10/18/23 10/06/24 Rx carbidopa 25 mg-levodopa 100 mg 1 tab PO TID 02/07/24 10/06/24 History tablet acetaminophen 500 mg tablet 1,000 mg PO .THREE TIMES WEEKLY 10/06/24 10/06/24 History bicalutamide 50 mg tablet 50 mg PO DAILY 10/06/24 10/06/24 History insulin glargine 100 unit/mL (3 25 unit SQ DAILY 10/06/24 10/06/24 History mL) subcutaneous pen (Lantus Solostar U-100 Insulin) melatonin 3 mg tablet 3 mg PO HS 10/06/24 10/06/24 History metoprolol tartrate 25 mg tablet 25 mg PO BID 10/06/24 10/06/24 History mirtazapine 15 mg tablet 7.5 mg PO HS 10/06/24 10/06/24 History nitroglycerin 0.4 mg sublingual 0.4 mg sublingual Q5MINP PRN Chest 10/06/24 10/06/24 History tablet Pain pantoprazole 40 mg tablet,delayed 40 mg PO BID 10/06/24 10/06/24 History release potassium chloride 20 mEq 20 meq PO DAILY 10/06/24 10/06/24 History tablet,extended release(part/cryst) rivaroxaban 20 mg tablet (Xarelto) 20 mg PO QPMWITHMEAL 10/06/24 10/06/24 History sucralfate 100 mg/mL oral 10 ml PO QID 10/06/24 10/06/24 History suspension New Prescriptions to Start Prescriptions: Allergies Allergy/AdvReac Type Severity Reaction Status Date / Time No Known Allergies Allergy Verified 05/14/24 10:01 Results Laboratory Findings 10/08/24 06:12 10/08/24 06:12 PT/INR, D-dimer PT 14.1 seconds (10.1-12.5) H 10/07/24 08:01 INR 1.29 (0.9-1.1) H 10/07/24 08:01 D-Dimer 1.11 ug/mL (0.0-0.5) H 10/06/24 09:34 Abnormal lab findings: Abnormal Labs 10/06/24 10/06/24 10/06/24 09:34 10:23 16:28 WBC 2.9 L 2.9 L RBC 3.60 L 3.53 L Hgb 8.7 L 8.3 L Hct 28.8 L 28.3 L MCV MCH 24.2 L 23.5 L MCHC 30.2 L 29.3 L Plt Count 123 L 135 L [place] % (Auto) 10.4 H 9.5 H Lymph # (Auto) 0.6 L 0.6 L PT 18.6 H INR 1.75 H D-Dimer 1.11 H Potassium 3.2 L Chloride 108 H Carbon Dioxide BUN Glucose 206 H POC Glucose ALT 9 L NT-Pro-B Natriuret Pep 5080 H Total Protein 5.7 L Stool Occult Blood Positive A Crossmatch ([facility]) 10/06/24 10/06/24 10/07/24 20:06 20:25 05:49 WBC RBC Hgb 8.3 L Hct 27.0 L MCV MCH MCHC Plt Count [place] % (Auto) Lymph # (Auto) PT INR D-Dimer Potassium Chloride Carbon Dioxide BUN Glucose POC Glucose 180 H 120 H ALT NT-Pro-B Natriuret Pep Total Protein Stool Occult Blood Crossmatch ([facility]) See Detail 10/07/24 10/07/24 10/07/24 08:01 08:42 10:55 WBC 3.7 L D RBC 3.73 L Hgb 8.9 L Hct 29.8 L MCV 79.9 L MCH 23.9 L MCHC 29.9 L Plt Count 141 L [place] % (Auto) 10.1 H Lymph # (Auto) PT 14.1 H INR 1.29 H D-Dimer Potassium 3.0 L Chloride Carbon Dioxide BUN Glucose 159 H D POC Glucose 191 H 194 H ALT NT-Pro-B Natriuret Pep Total Protein Stool Occult Blood Crossmatch ([facility]) 10/07/24 10/07/24 10/08/24 16:02 20:29 05:20 WBC RBC Hgb Hct MCV MCH MCHC Plt Count [place] % (Auto) Lymph # (Auto) PT INR D-Dimer Potassium Chloride Carbon Dioxide BUN Glucose POC Glucose 112 H 67 L 69 L ALT NT-Pro-B Natriuret Pep Total Protein Stool Occult Blood Crossmatch ([facility]) 10/08/24 10/08/24 06:12 06:29 WBC 3.2 L RBC 3.35 L Hgb 8.1 L Hct 26.6 L MCV 79.4 L MCH 24.2 L MCHC 30.5 L Plt Count 139 L [place] % (Auto) 13.4 H Lymph # (Auto) PT INR D-Dimer Potassium Chloride Carbon Dioxide 32 H BUN 8 L Glucose POC Glucose 126 H ALT NT-Pro-B Natriuret Pep Total Protein Stool Occult Blood Crossmatch ([facility]) Assessment and Plan *Assessment and plan (1) Acute respiratory failure with hypoxia: Status: Acute Category: Medical Code(s): J96.01 - Acute respiratory failure with hypoxia (2) Pleural effusion, bilateral: Status: Acute Category: Medical Code(s): J90 - Pleural effusion, not elsewhere classified Plan Mr. Pollock is a 74-year-old male history of CAD status post stenting on Plavix and Xarelto, CHF, atrial fibrillation, diabetes mellitus dyslipidemia cardiomyopathy reported history of prostate cancer presented to the ER with worsening shortness of breath and chest pain noted to have bilateral pleural effusions and pulmonary was called for further evaluation and management. Patient admits history of prostate cancer 3 years ago also admits recent spread with metastatic disease and started chemotherapy in May 2024. Never smoker. No significant secondhand smoke exposure. Not using oxygen supplementation or inhalers at baseline. Afebrile. Hemodynamically stable. Leukopenia noted. CTA upon admission no evidence of pulmonary embolism. Bilateral pleural effusions left greater than right. No pulmonary embolism. No dense consolidative / airspace changes. Likely lower lobe atelectasis noted adjacent effusions. Echocardiogram on this admission normal biventricular systolic function. Given his history of prostate cancer and with recent spread with metastasis we will proceed with thoracentesis Plan: Anticoagulation including aspirin Plavix on hold for the last 48 hours. Scheduled for left-sided thoracentesis. Brad 4 times daily as needed Oxygen supplementation as needed to maintain O2 saturation below 90% and above
[2024-10-08] MEDS: FUROSEMIDE 40MG/4ML VIAL 40 MG IV ×2 (09:28→16:17)
[2024-10-08] MEDS: PANTOPRAZOLE 40MG VIAL 40 MG IV ×2 (09:28→20:55)
[2024-10-08] MEDS: SUCRALFATE 1GM/10ML SUSP UDC 1 GM PO ×4 (09:28→20:55)
[2024-10-08] MEDS: INSULIN GLARGINE 100 UNITS/ML 3ML FLEXPEN 25 UNIT SUBCUT (09:55)
--- NOTE | 2024-10-08 10:29 | US_ITS ---
FINAL REPORT CLINICAL HISTORY: LT Pleural effusion -- LT THORACENTESIS -- DR ELLIS -- 750 ML FINDINGS: ULTRASOUND GUIDANCE FOR THORACENTESIS: Ultrasound guidance was performed prior to thoracentesis. A region of pleural fluid identified as being located in the left chest} was localized under ultrasound guidance. The thoracentesis was performed by Dr. Medina, and 750 mL of pleural fluid was withdrawn. IMPRESSION: Region of pleural fluid localized under ultrasound guidance for prior to Dr. Medina performing thoracentesis. Reviewed, Interpreted and Dictated by Bossman Baron MD Transcribed by Shanon Chau Authenticated and [facility]
--- NOTE | 2024-10-08 11:34 | EXP.GE.CONS ---
History of Present Illness *Admission Date: 10/06/24 *History of present illness: Patient is a 74-year-old male with a history of coronary artery disease with previous stenting on clopidogrel and Xarelto, congestive heart failure, GERD, atrial fibrillation, cardiac pacemaker, diabetes, hypertension, hyperlipidemia, cardiomyopathy, history of metastatic prostate cancer from [facility] who presented to the emergency department with complaints of shortness of breath and chest pain. He also complains of left upper extremity swelling. He was noted to have a hemoglobin of 8.7. Previous hemoglobin a year ago was 13. Denies symptoms consistent with hematochezia or melena. He did have Hemoccult positivity. Other pertinent laboratory findings reveal a platelet count of 123,000 and an INR of 1.75. Liver function tests normal. Sodium normal at 140. Surgical consultation was obtained for the anemia. Of note, patient had a 6-week hospitalization several facilities after a hip fracture. He was initially at [facility] been in [place] and then in [facility]. Ultimately following that had some stay for inpatient rehabilitation in an [facility]. While he was at [facility] he did have melena and underwent upper endoscopy which by report revealed erosive esophagitis with several small shallow ulcers in the antrum and an ulcer in the second portion of the duodenum with some stigmata of recent bleeding. He was treated and did undergo follow-up EGD while he was still in inpatient which was reportedly normal. Per admission H &P This is a 74-year-old male who is here for acute on chronic CHF and large right-sided pleural effusion. GI was consulted for Hemoccult positive anemia. Hemoglobin this morning was 8.1 microcytic and hypochromic but is also pancytopenic with platelet count of 139. The patient was recently hospitalized for 67 days after a fall. He received 6 packed red cell transfusions and underwent EGD with found multiple ulcerations. Treated with twice daily Protonix and sucralfate 4 times daily. Repeat EGD during hospitalization noted cessation of bleeding per patient and his 's report. Patient has been consistent with his medication treatment. Looks like he was discharged from with a hemoglobin above 8 and is still anemic. He is not on oral iron supplements. The patient and report he did not receive any IV iron infusions while hospitalized that they are aware of. He is on Plavix and Xarelto with an extensive cardiac history. The patient does have an appointment with GI on October 21 in about 2 weeks. Patient denies melena or hematochezia at home. No nausea vomiting or abdominal pain. He reports he is able to eat and drink appropriately at home. He has been more constipated on the sucralfate. [facility] Disclaimer: The information contained in this section may have been updated after the patient was seen, as this information can be updated by other users. Medical History (Updated 10/08/24 @ 11:35 by Luz Elena Concepcion APRN) Pleural effusion, bilateral Acute respiratory failure with hypoxia Chronic HFrEF (heart failure with reduced ejection fraction) Abnormal cardiovascular stress test Atypical angina Pericardial effusion Prostate cancer Displacement of atrial pacemaker leads Cardiomyopathy Typical angina SOB (shortness of breath) HTN (hypertension) CAD (coronary artery disease) ST elevation myocardial infarction (STEMI) Cerebrovascular accident Surgical History History of cardiac catheterization Family History Other Family history of cancer Social History Smoking Status: Never smoker second hand exposure: No alcohol intake: current substance use type: denies use current occupational status: retired Travel in the last 8 weeks?: Inside the [place] household members: spouse housing: house current occupational exposures/hazards: No caffeine: Yes Have you lived/traveled outside US in past 30 days?: No Contact w/someone who lives/traveled outside US past 30 days?: No Exposure to someone with infectious disease in past 14 days?: No Do you have a fever (greater than 100.4 F or 38 C)?: No Have you tested positive for COVID-19?: No Exposed to someone with COVID-19 in past 14 days?: No Do you have a sore throat?: No Do you have a cough?: No Do you have any weakness?: Yes Do you have any diarrhea?: No Are you experiencing any unusual bleeding?: No Do you have any muscle aches/pain?: Yes Do you have any abdominal pain?: No Are you experiencing loss of taste or smell?: No Review of Systems Constitutional Constitutional: Reports weakness Eyes Eyes: Denies loss of vision ENT Ears, Nose, Mouth, and Throat: Denies vertigo *Cardiovascular Cardiovascular: Denies syncope *Neurologic Neurologic: Denies loss of vision, Denies syncope, Denies vertigo and Reports weakness Meds Home Medications and Allergies Home Medications ?Medication ?Instructions ?Recorded ?Confirmed ?Type cyanocobalamin (vitamin B-12) 1,000 mcg PO DAILY Supplement 06/09/22 10/06/24 History 1,000 mcg tablet latanoprost 0.005 % eye drops 1 drp Eye-Both HS 09/20/23 10/06/24 History clopidogrel 75 mg tablet 75 mg PO DAILY #90 tabs 10/18/23 10/06/24 Rx carbidopa 25 mg-levodopa 100 mg 1 tab PO TID 02/07/24 10/06/24 History tablet acetaminophen 500 mg tablet 1,000 mg PO .THREE TIMES WEEKLY 10/06/24 10/06/24 History bicalutamide 50 mg tablet 50 mg PO DAILY 10/06/24 10/06/24 History insulin glargine 100 unit/mL (3 25 unit SQ DAILY 10/06/24 10/06/24 History mL) subcutaneous pen (Lantus Solostar U-100 Insulin) melatonin 3 mg tablet 3 mg PO HS 10/06/24 10/06/24 History metoprolol tartrate 25 mg tablet 25 mg PO BID 10/06/24 10/06/24 History mirtazapine 15 mg tablet 7.5 mg PO HS 10/06/24 10/06/24 History nitroglycerin 0.4 mg sublingual 0.4 mg sublingual Q5MINP PRN Chest 10/06/24 10/06/24 History tablet Pain pantoprazole 40 mg tablet,delayed 40 mg PO BID 10/06/24 10/06/24 History release potassium chloride 20 mEq 20 meq PO DAILY 10/06/24 10/06/24 History tablet,extended release(part/cryst) rivaroxaban 20 mg tablet (Xarelto) 20 mg PO QPMWITHMEAL 10/06/24 10/06/24 History sucralfate 100 mg/mL oral 10 ml PO QID 10/06/24 10/06/24 History suspension New Prescriptions to Start Prescriptions: Allergies Allergy/AdvReac Type Severity Reaction Status Date / Time No Known Allergies Allergy Verified 05/14/24 10:01 Exam (Inpt) Vital signs and Labs for Last 24 Hours: Temp Pulse Resp BP Pulse Ox O2 Del Method O2 Flow Rate 97.9 F 68 16 113/60 96 Nasal Cannula 2 10/08/24 08:26 10/08/24 08:26 10/08/24 04:00 10/08/24 08:26 10/08/24 08:26 10/08/24 08:26 10/08/24 08:26 Laboratory Results - last 24 hr 10/07/24 16:02: POC Glucose 112 H 10/07/24 20:29: POC Glucose 67 L 10/07/24 21:22: POC Glucose 101 10/08/24 05:20: POC Glucose 69 L 10/08/24 06:12: WBC 3.2 L, RBC 3.35 L, Hgb 8.1 L, Hct 26.6 L, MCV 79.4 L, MCH 24.2 L, MCHC 30.5 L, RDW 16.6, Plt Count 139 L, MPV 9.5, Neut % (Auto) 54.7, Lymph % (Auto) 21.6, [place] % (Auto) 13.4 H, Eos % (Auto) 9.1, Baso % (Auto) 0.6, Neut # (Auto) 1.8, Lymph # (Auto) 0.7, [place] # (Auto) 0.4, Eos # (Auto) 0.3, Baso # (Auto) 0.0, Sodium 137, Potassium 3.6, Chloride 102, Carbon Dioxide 32 H, Anion Gap 6.6, BUN 8 L, Creatinine 0.80, Estimated Creat Clear 60, Estimated GFR 94, Est GFR ( Amer) 114, Glucose 99 D, Calcium 9.2, Lactate Dehydrogenase 217 L 10/08/24 06:29: POC Glucose 126 H I & O for Labs for Last 24 Hours: Intake & Output 10/05/24 10/06/24 10/07/24 10/08/24 11:59 11:59 11:59 11:59 Intake Total 755 50 Output Total 3750 1450 Balance -2995 -1400 Weight 65.771 kg 74.616 kg 66.31 kg Microbiology Reports for the Last 24 Hours: Microbiology 10/06/24 10:18 Blood Blood Culture - Preliminary NO GROWTH AFTER 48 HOURS 10/06/24 10:23 Blood Blood Culture - Preliminary NO GROWTH AFTER 48 HOURS Results Labs 10/08/24 06:12 10/08/24 06:12 Labs: Laboratory Results - last 24 hr 10/07/24 16:02: POC Glucose 112 H 10/07/24 20:29: POC Glucose 67 L 10/07/24 21:22: POC Glucose 101 10/08/24 05:20: POC Glucose 69 L 10/08/24 06:12: WBC 3.2 L, RBC 3.35 L, Hgb 8.1 L, Hct 26.6 L, MCV 79.4 L, MCH 24.2 L, MCHC 30.5 L, RDW 16.6, Plt Count 139 L, MPV 9.5, Neut % (Auto) 54.7, Lymph % (Auto) 21.6, [place] % (Auto) 13.4 H, Eos % (Auto) 9.1, Baso % (Auto) 0.6, Neut # (Auto) 1.8, Lymph # (Auto) 0.7, [place] # (Auto) 0.4, Eos # (Auto) 0.3, Baso # (Auto) 0.0, Sodium 137, Potassium 3.6, Chloride 102, Carbon Dioxide 32 H, Anion Gap 6.6, BUN 8 L, Creatinine 0.80, Estimated Creat Clear 60, Estimated GFR 94, Est GFR ( Amer) 114, Glucose 99 D, Calcium 9.2, Lactate Dehydrogenase 217 L 10/08/24 06:29: POC Glucose 126 H Assessment and Plan *Assessment and plan (1) Anemia: Status: Acute Qualifiers: Anemia type: iron deficiency Iron deficiency anemia type: chronic blood loss Qualified Code(s): D50.0 - Iron deficiency anemia secondary to blood loss (chronic) Category: Medical Code(s): D64.9 - Anemia, unspecified (2) Gastric ulcer: Status: Acute Category: Medical Code(s): K25.9 - Gastric ulcer, unspecified as acute or chronic, without hemorrhage or perforation (3) Occult blood positive stool: Status: Acute Category: Medical Code(s): R19.5 - Other fecal abnormalities Plan 1. Anemia/gastric ulcer/Hemoccult positive Patient recently spent 67 days hospitalized at status post 6 blood transfusions and 2 EGDs. Per 's report they found multiple gastric and esophageal ulcers. He has been on sucralfate 4 times a day and pantoprazole twice daily. He is on Xarelto and Plavix. He had a second EGD while hospitalized that noted cessation of bleeding. After discharge from hemoglobin above 8 currently 8.1 this morning. Microcytic and hypochromic with a low platelet of 139. He is pancytopenic. He did have a positive Hemoccult. Patient has an appointment on October 21 with GI at for follow-up. Patient has not been on p.o. iron replacement at home. He denies any epigastric pain. No NSAID use. No nausea vomiting. Able to eat and drink appropriately at home he reports. I agree with the IV iron replacement and has had his first dose of Venofer. I would like him to complete the entire treatment even as an outpatient. We will monitor his hemoglobin. If it starts dropping or obvious melena, may consider repeat EGD. I recommend continued sucralfate 4 times daily and Protonix twice daily and follow-up as scheduled in 2 weeks with GI.
--- NOTE | 2024-10-08 12:24 | EXP.ACUTE.PN ---
Subjective *Date: 10/08/24 *Time: 12:24 Interval history: Wore 2 L oxygen overnight. Afebrile. No black or bloody stools. Denies any chest pain. Feels weak today. Edema in arm is improving. Significant urine output. Negative at least 4 L since admission. Afebrile. at bedside Medical Exam Vital signs and Labs for Last 24 Hours: Vital Signs Temp Pulse Pulse Resp BP Pulse Ox O2 Del Method 10/08/24 12:00 60 19 118/51 L 100 Room Air 10/08/24 11:00 Nasal Cannula 10/08/24 08:26 97.9 F 68 113/60 96 Nasal Cannula 10/08/24 08:11 Room Air 10/08/24 08:00 Room Air 10/08/24 06:33 Nasal Cannula 10/08/24 05:00 Nasal Cannula 10/08/24 04:00 60 10/08/24 04:00 98.1 F 65 16 120/50 L 91 L Nasal Cannula 10/08/24 03:00 Room Air 10/08/24 01:00 Room Air 10/08/24 00:00 60 10/08/24 00:00 97.8 F 66 16 127/51 L 94 L Nasal Cannula 10/07/24 23:00 Nasal Cannula 10/07/24 21:00 Nasal Cannula 10/07/24 20:00 90 10/07/24 20:00 Room Air 10/07/24 20:00 97.7 F 74 18 135/66 96 Nasal Cannula 10/07/24 18:37 Nasal Cannula 10/07/24 16:18 Nasal Cannula 10/07/24 16:00 70 10/07/24 16:00 72 18 136/64 95 Nasal Cannula 10/07/24 15:00 Room Air 10/07/24 13:00 Room Air O2 Flow Rate 10/08/24 12:00 10/08/24 11:00 2 10/08/24 08:26 2 10/08/24 08:11 10/08/24 08:00 10/08/24 06:33 2 10/08/24 05:00 2 10/08/24 04:00 10/08/24 04:00 3 10/08/24 03:00 10/08/24 01:00 10/08/24 00:00 10/08/24 00:00 2 10/07/24 23:00 2 10/07/24 21:00 2 10/07/24 20:00 10/07/24 20:00 10/07/24 20:00 2 10/07/24 18:37 2 10/07/24 16:18 2 10/07/24 16:00 10/07/24 16:00 2 10/07/24 15:00 10/07/24 13:00 Intake and Output 10/07/24 10/08/24 10/08/24 23:59 07:59 15:59 Intake Total 50 / 50 Output Total 550 / 950 400 / 950 Balance -500 / -900 -400 / -900 Intake: Intake, Total IV Amount 50 / 50 Ceftriaxone 1 gm 1 gm In 0.9 % 50 / 50 Sodium Chloride 50 ml @ 100 mls /hr IV Q24H [facility] Rx#:[id number] Output: Output, Urine Amount 550 / 950 400 / 950 Other: Number of Unmeasured Voids 0 Weight 66.31 kg Patient Weight 10/08/24 23:59 Weight 66.31 kg Laboratory Results - last 24 hr 10/07/24 16:02: POC Glucose 112 H 10/07/24 20:29: POC Glucose 67 L 10/07/24 21:22: POC Glucose 101 10/08/24 05:20: POC Glucose 69 L 10/08/24 06:12: WBC 3.2 L, RBC 3.35 L, Hgb 8.1 L, Hct 26.6 L, MCV 79.4 L, MCH 24.2 L, MCHC 30.5 L, RDW 16.6, Plt Count 139 L, MPV 9.5, Neut % (Auto) 54.7, Lymph % (Auto) 21.6, [place] % (Auto) 13.4 H, Eos % (Auto) 9.1, Baso % (Auto) 0.6, Neut # (Auto) 1.8, Lymph # (Auto) 0.7, [place] # (Auto) 0.4, Eos # (Auto) 0.3, Baso # (Auto) 0.0, Sodium 137, Potassium 3.6, Chloride 102, Carbon Dioxide 32 H, Anion Gap 6.6, BUN 8 L, Creatinine 0.80, Estimated Creat Clear 60, Estimated GFR 94, Est GFR ( Amer) 114, Glucose 99 D, Calcium 9.2, Lactate Dehydrogenase 217 L 10/08/24 06:29: POC Glucose 126 H I & O for Labs for Last 24 Hours: Intake & Output 10/05/24 10/06/24 10/07/24 10/08/24 23:59 23:59 23:59 23:59 Intake Total 120 / 140 635 / 685 50 / 50 Output Total 1900 / 2400 2350 / 2350 950 / 950 Balance -1780 / -2260 -1715 / -1665 -900 / -900 Weight 73.198 kg 74.616 kg 66.31 kg Microbiology Reports for the Last 24 Hours: Microbiology 10/06/24 10:18 Blood Blood Culture - Preliminary NO GROWTH AFTER 48 HOURS 10/06/24 10:23 Blood Blood Culture - Preliminary NO GROWTH AFTER 48 HOURS Constitutional: Present no acute distress, thin, chronically ill appearing and cooperative Head: Present atraumatic and normocephalic ENT: Present normal exam Respiratory: Present crackles (Bilateral posterior lung lynne), diminished air movement (Bases bilaterally) and normal respiratory effort; Absent rhonchi or wheezes Cardiac: Present Reg Rate and Rhythm GI: Present soft, tenderness (Mild epigastric) and normal bowel sounds; Absent distention Extremities: Present normal inspection, full ROM and edema (1+ bilateral lower extremity edema) Skin: Present intact and pallor; Absent erythema Neuro: Present Grossly Intact, alert, awake, oriented x 3 and moves all extremities Assessment and Plan *Assessment and plan (1) Acute on chronic heart failure with preserved ejection fraction (HFpEF): Status: Acute Category: Medical Code(s): I50.33 - Acute on chronic diastolic (congestive) heart failure (2) Anemia: Status: Acute Qualifiers: Anemia type: iron deficiency Iron deficiency anemia type: chronic blood loss Qualified Code(s): D50.0 - Iron deficiency anemia secondary to blood loss (chronic) Category: Medical Code(s): D64.9 - Anemia, unspecified (3) HTN (hypertension): Status: Chronic Qualifiers: Hypertension type: essential hypertension Qualified Code(s): I10 - Essential (primary) hypertension Category: Medical Code(s): I10 - Essential (primary) hypertension (4) HLD (hyperlipidemia): Status: Chronic Qualifiers: Hyperlipidemia type: other hyperlipidemia Qualified Code(s): E78.49 - Other hyperlipidemia Category: Medical Code(s): E78.5 - Hyperlipidemia, unspecified (5) CAD (coronary artery disease): Status: Chronic Qualifiers: Coronary Disease-Associated Artery/Lesion type: [place] artery [place] vs. transplanted heart: [place] heart Associated angina: without angina Qualified Code(s): I25.10 - Atherosclerotic heart disease of [place] coronary artery without angina pectoris Category: Medical Code(s): I25.10 - Atherosclerotic heart disease of [place] coronary artery without angina pectoris (6) Pleural effusion: Status: Acute Category: Medical Code(s): J90 - Pleural effusion, not elsewhere classified (7) Pancytopenia: Status: Acute Category: Medical Code(s): D61.818 - Other pancytopenia (8) Atrial fibrillation: Status: Chronic Qualifiers: Atrial fibrillation type: longstanding persistent Qualified Code(s): I48.11 - Longstanding persistent atrial fibrillation Category: Medical Code(s): I48.91 - Unspecified atrial fibrillation Plan 74-year-old male with multiple comorbidities including Parkinson's, heart failure with preserved ejection fraction, A-fib, chronic anticoagulation, metastatic prostate cancer and recent prolonged hospitalization due to hip fracture and complications thereafter. Presented with shortness of breath and chest pain. Found to have significant anemia concerning for blood loss anemia. Stool occult positive. Also had moderate bilateral pleural effusions and elevated BNP. Medicine consulted for admission. Cardiology, GI, pulmonology assisting with care. Holding on further scopes. Pulmonology performing thoracentesis today. Responding to diuresis. Hemoglobin holding stable above 8. No plan for repeat EGD. Continues to require inpatient management. Problems addressed as follows: Acute on chronic HFpEF History of A-fib Bilateral pleural effusions -BNP elevated to 5000. Continue Lasix 40 mg IV twice daily. Negative at least 4 L since admission. Having good response. Kidney function stable with BUN 8, creatinine 0.8. - Potassium 3.6. Continue replacement per protocol. - Repeat CBC, CMP, magnesium ordered for the morning -Limited echo obtained shows preserved ejection fraction. -Discussed case with pulmonology today, planning on thoracentesis to evaluate pleural effusions. Patient has history of sarcoidosis and metastatic prostate cancer to his lymph nodes as he says. - Continue with metoprolol tartrate 25 mg twice daily - Intermittently on oxygen. Wean for goal sats greater 90%. Currently on 2 L Iron deficiency anemia with acute on chronic loss Suspected GI bleed History of peptic ulcer disease - Hemoglobin 8. 1 this morning. No active signs of bleeding. Has pancytopenia with platelets of 139 and white count of 3.2. Transfusion threshold hemoglobin less than 7. - Discussed case with GI, will hold on EGD at this time. Continue medical management with sucralfate 4 times a day and Protonix IV 40 mg twice daily - Administered 200 mg IV iron yesterday. Will administer an additional 200 of Venofer in the morning tomorrow. - Typed and crossed 2 units, holding at this time. - Continue holding blood thinners as he is on Plavix and Xarelto for history of CAD, CHF, A-fib. Parkinson's: Continue carbidopa levodopa per home regimen 25/100 one tablet 3 times a day Diabetes: Continue glargine 25 units daily. Sliding scale insulin and fingersticks ACHS Mirtazapine 7.5 mg nightly to aid with sleep History of metastatic prostate cancer. Currently undergoing chemical castration with bicalutamide. Will continue if patient brings in his home regimen DVT prophylaxis-SCDs for now
[2024-10-08 12:45] LABS: Appearance,Body Fld. Slightly cloudy; RBC,Body Fluid < 2000 cells/uL (< 10 X 10^3); Source, Body Fld. Thoracentesis Fluid; TNC,Body Fluid 1277 cells/uL (< 1000); Volume,Body Fld. 750 mL
--- NOTE | 2024-10-08 12:53 | HMH.PROCNOTE ---
[facility] Procedure Note Date: 10/08/24 Time: 12:54 Procedure Note:: Procedure: Left Thoracentesis Indication for procedure: Pleural Effusion, Hypoxic Respiratory failure A time out was performed, and the chest x-ray was reviewed, the appropriate side was confirmed and marked. My hands were washed immediately prior to the procedure. I wore a surgical cap, mask with protective eyewear, sterile gown, and sterile gloves throughout the procedure. The patient was prepped and draped in a sterile manner using chlorhexidine scrub after the appropriate level was percussed and confirmed by ultrasound. 1% lidocaine was used to anesthetize the skin, subcutaneous tissue, superior aspect of the rib periosteum and parietal pleura.? A finder needle was then introduced at the seventh intercoastal space posteriorly?to locate the pleural fluid; straw colored fluid was aspirated. A 10-blade scalpel was used to lexy the skin at the insertion site. The [id number] needle was then introduced through the skin incision into the pleural space using negative aspiration pressure and the red colorimetric indicator to confirm appropriate positioning of the needle. The thoracentesis catheter was then threaded without difficulty.? 750 ml of straw-colored?fluid was removed without difficulty. The catheter was then removed. No immediate complications were noted during the procedure. A post-procedure chest X-ray is pending at the time of this note. The fluid will be sent for routine pleural studies, cultures along with cytopathology.? Patient tolerated the procedure well? Estimated blood loss is 2cc.
--- NOTE | 2024-10-08 12:54 | XR_ITS ---
FINAL REPORT TECHNIQUE: Single view chest CLINICAL HISTORY: Post thora COMPARISON: 10/06/2024 FINDINGS: A single view of the chest was obtained. A biventricular pacemaker is in place. The heart and mediastinum are within normal limits. There are chronic changes at the lung bases. The lungs are otherwise clear. There is no pneumothorax. IMPRESSION: No acute cardiopulmonary process. Reviewed, Interpreted and Dictated by Bossman Baron MD Transcribed by Marylou Salazar Authenticated and [facility]
[2024-10-08] MEDS: AZITHROMYCIN 500 MG in 0.9 % SODIUM CHLORIDE 250 ML 250 MG IV (13:03)
--- NOTE | 2024-10-08 13:15 | P.PN_ITS ---
Subjective Subjective Date: 10/08/24 Time: 13:00 Interval history: Thoracentesis this am - pathology pending. Pt reports breathing better. Still having BM, but no blood per pt. ECHO - unremarkable PPM download - unremarkable Exam Data for Last 24 hours Vital signs and Labs for Last 24 Hours: Temp Pulse Resp BP Pulse Ox O2 Del Method O2 Flow Rate 97.9 F 60 19 118/51 L 100 Room Air 2 10/08/24 08:26 10/08/24 12:00 10/08/24 12:00 10/08/24 12:00 10/08/24 12:00 10/08/24 12:00 10/08/24 11:00 Laboratory Results - last 24 hr 10/07/24 16:02: POC Glucose 112 H 10/07/24 20:29: POC Glucose 67 L 10/07/24 21:22: POC Glucose 101 10/08/24 05:20: POC Glucose 69 L 10/08/24 06:12: WBC 3.2 L, RBC 3.35 L, Hgb 8.1 L, Hct 26.6 L, MCV 79.4 L, MCH 24.2 L, MCHC 30.5 L, RDW 16.6, Plt Count 139 L, MPV 9.5, Neut % (Auto) 54.7, Lymph % (Auto) 21.6, [place] % (Auto) 13.4 H, Eos % (Auto) 9.1, Baso % (Auto) 0.6, Neut # (Auto) 1.8, Lymph # (Auto) 0.7, [place] # (Auto) 0.4, Eos # (Auto) 0.3, Baso # (Auto) 0.0, Sodium 137, Potassium 3.6, Chloride 102, Carbon Dioxide 32 H, Anion Gap 6.6, BUN 8 L, Creatinine 0.80, Estimated Creat Clear 60, Estimated GFR 94, Est GFR ( Amer) 114, Glucose 99 D, Calcium 9.2, Lactate Dehydrogenase 217 L 10/08/24 06:29: POC Glucose 126 H I & O for Last 24 hours: Intake & Output 10/05/24 10/06/24 10/07/24 10/08/24 23:59 23:59 23:59 23:59 Intake Total 120 / 140 635 / 685 50 / 50 Output Total 1900 / 2400 2350 / 2350 950 / 950 Balance -1780 / -2260 -1715 / -1665 -900 / -900 Weight 161 lb 6 oz 164 lb 8 oz 146 lb 3 oz Microbiology Reports for the Last 24 Hours: Microbiology 10/06/24 10:18 Blood Blood Culture - Preliminary NO GROWTH AFTER 48 HOURS 10/06/24 10:23 Blood Blood Culture - Preliminary NO GROWTH AFTER 48 HOURS Constitutional Constitutional: no acute distress and cooperative Comments: pale, flat affect *Routine HEENT Exam Eye: Present PERRL *Routine Respiratory Exam Respiratory: Present CTA bilaterally; Absent accessory muscle use, wheezes or crackles *Routine Cardiovascular Exam Cardiovascular: Present RRR, Normal S1 and Normal S2; Absent murmur, gallop or rubs *Routine Abdominal Exam Abdominal: Present soft; Absent tenderness Comments: mild diffuse abdominal pressure' on palpation *Routine Extremities Exam Extremities: Present pulses intact; Absent cyanosis or edema *Routine Skin Exam Skin: Present intact; Absent erythema or wounds *Routine Neurological Exam Neurological: Present alert and oriented X3 Comments: flat affect Routine Psychiatric Exam Psychiatric: Present cooperative Progress Note: A&P Assessment and plan (1) Pleural effusion, bilateral: Status: Acute (2) Acute on chronic heart failure with preserved ejection fraction (HFpEF): Status: Acute (3) Anemia: Status: Acute (4) HTN (hypertension): Status: Chronic (5) HLD (hyperlipidemia): Status: Chronic (6) CAD (coronary artery disease): Status: Chronic (7) Pleural effusion: Status: Acute (8) Pancytopenia: Status: Acute (9) Atrial fibrillation: Status: Chronic (10) Occult blood positive stool: Status: Acute Assessment and Plan Assessment and Plan for All Diagnoses:: Acute on chronic HFpEF - normal ECHO but hx of A-fib, PPM, CAD and here with HUNG, Large Bilat Pleural Effusions and ProBNP 5k - diuresing well with Lasix - will interrogate his device but largely normal ECHO here out of proportion to his large effusions - continue diuresis with Lasix - last device interrogation was in August, will repeat - add Farxiga and Aldactone 10/08: ECHO and device download unremarkable. Tolerating meds well, diuresed 4L. Large Bilateral Pleural Effusions - HFpEF possibly contributing, but seems out of proportion - consider underlying pulm source, pt/family report metastatic prostate cancer to nodes pt has multiple prior enlarged nodes on CT chest here as far back as 10/08: Etiology still unclear. Thoracentesis today, pathology/cytology pending. CAD - NSTEMI/PETEY 2018 and PETEY 2023, [employer] 2nd Diag - CCS = 0 - No WMA on ECHO here - EKG - A-fib with V-pacing 10/08: stable on BB. Resume statin. DAPT on hold due to GI bleeding and pancytopenia. If no further bleeding tomorrow, resume either ASA or Plavix PAF/SSS s/p Bi-V PPM - last interrogation was 08/2024 - showed 0% A-fib, AP 41% BVP 99% - Xarelto on hold due to GI bleed, pancytopenia, and elevated INR - continue metoprolol - EKG here shows what looks like A-fib and v-pacing 10/08: 0% A-fib on PPM download. Normal function. Pancytopenia - WBC 2.9, Hgb 8.3, Plt 135 - etiology? - Plavix/Xarelto on hold with anemia, active GI bleed, and INR of 1.75 10/08: stable Elevated INR - Abd US unrevealing 10/08: improving slowly. Etiology? Sarcoidosis - history unclear - presume Pulm and followed by [facility] Metastatic Prostate Cancer - recent spread to 'nodes' per family - details unclear, presume inguinal lymph nodes - on Bicalutamide chemo 10/08: CV stable. Further plans pending pleural fluid analysis and if any further GI bleeding.
[2024-10-08 13:19] LABS: POC Glucose,Bedside 59 (70-110)
[2024-10-08 13:42] LABS: Mononuclear WBCs,Body Fluid 95 %; Polynuclear WBC,Body Fluid 5 %
--- NOTE | 2024-10-08 14:37 | PC.NURSE ---
ROOM AIR OXYGEN SATURATION 93% AT REST
[2024-10-08 16:16] LABS: POC Glucose,Bedside 91 (70-110)
[2024-10-08] MEDS: SODIUM CHLORIDE 3% 15ML NEB 3 ML IH (17:15)
--- NOTE | 2024-10-08 17:26 | PC.NURSE ---
patient is alert and oriented x4. had thoracentesis at the bedside today, patient reports improved comfort and work of breathing following procedure. patient had a formed bowel movement this afternoon, stool did not appear dark and no visible blood noted. patient does have large area of blanchable redness to his buttocks bilaterally, optifoam dressing applied to protect the area, patient has been turned frequently to offload pressure on the area.
[2024-10-08] MEDS: METOPROLOL TARTRATE 5MG/5ML VIAL 5 MG IV (18:10)
--- NOTE | 2024-10-08 18:47 | PC.NURSE ---
patient became tachycardic toward the end of my shift, notified, new orders received, meds administered per MAY.
[2024-10-08 20:22] LABS: POC Glucose,Bedside 232 (70-110)
[2024-10-08] MEDS: CEFTRIAXONE 1 GM 1 GM in 0.9 % SODIUM CHLORIDE 50 ML IV (20:47)
[2024-10-08] MEDS: ATORVASTATIN 40MG TABLET 80 MG PO (20:54)
[2024-10-08] MEDS: MELATONIN 5MG TABLET 5 MG PO (20:54)
[2024-10-08] MEDS: humaLOG 100 UNITS/ML 10ML VIAL (SSI) SUBCUT (20:54)
[2024-10-08] MEDS: MIRTAZAPINE 15 MG TABLET 7.5 MG PO (20:55)
[2024-10-09] VITALS: BP 124/48; PULSE 63; PULSE 65; RESP 16; TEMP 37; O2SAT 97
[2024-10-09 04:00] VITALS: BP 135/51; PULSE 60; PULSE 65; RESP 16; TEMP 36.4; O2SAT 99; BMI 21.7
--- NOTE | 2024-10-09 04:40 | PC.NURSE ---
Pt is Alert and oriented x4 Family at the bedside. Pt had 2l of o2 Per NC. Pt is on a Low Sodium Diet bg was 232 at 2030 last evening. Covered by S/S per mar. Pt call light with in reach. WILLY Mccormick RN
[2024-10-09 06:06] LABS: Chloride 100 mmol/L (98-107); Potassium 3.6 mmoL/L (3.5-5.1); Sodium 135 mmol/L (136-145)
[2024-10-09 06:09] LABS: Anion Gap 5.6 mEq/L (5-15); Blood Urea Nitrogen 13 mg/dl (9-20); Calcium 8.8 mg/dl (8.4-10.2); Carbon Dioxide 33 mmol/L (22.0-30.0); Creatinine Clearance Estimated 60 mL/min (50-200); Creatinine,Serum 1.00 mg/dl (0.66-1.25); Estimated Glomerular Filt Rate 73 ml/min (>60); GFR (African American) 88 ML/MIN (>60); Glucose 76 mg/dl (74-100)
[2024-10-09 06:16] LABS: Hematocrit 27.7 % (42.0-52.0); Hemoglobin 8.1 g/dL (14.1-18.0); Immature Granulocytes % 0 %; Mean Corpuscular HGB Conc 29.2 g/dL (31.8-35.4); Mean Corpuscular Hemoglobin 23.6 pg (27.0-31.2); Mean Corpuscular Volume 80.8 fl (80-94); Nucleated Red Blood Cells % 0 %; Platelet Count 127 K/mm3 (142-424); Red Blood Count 3.43 M/mm3 (4.60-6.20); Red Cell Distribution Width-SD 48.2 fL; White Blood Count 3.4 K/mm3 (4.8-10.8)
[2024-10-09 08:00] VITALS: BP 101/51; PULSE 120; PULSE 55; RESP 18; TEMP 37.2; O2SAT 94
--- NOTE | 2024-10-09 08:22 | EXP.DC.SUM ---
General Admission date:: 10/06/24 Discharge date: 10/09/24 HPI HPI HPI: Patient is a 74-year-old male with a history of coronary artery disease with previous stenting on clopidogrel and Xarelto, congestive heart failure, GERD, atrial fibrillation, cardiac pacemaker, diabetes, hypertension, hyperlipidemia, cardiomyopathy, history of metastatic prostate cancer from [facility] who presented to the emergency department with complaints of shortness of breath and chest pain. He also complains of left upper extremity swelling. He was noted to have a hemoglobin of 8.7. Previous hemoglobin a year ago was 13. Denies symptoms consistent with hematochezia or melena. He did have Hemoccult positivity. Other pertinent laboratory findings reveal a platelet count of 123,000 and an INR of 1.75. Liver function tests normal. Sodium normal at 140. Surgical consultation was obtained for the anemia. Of note, patient had a 6-week hospitalization several facilities after a hip fracture. He was initially at [facility] in [employer] and then in [facility]. Ultimately following that had some stay for inpatient rehabilitation in an [facility]. While he was at [facility] he did have melena and underwent upper endoscopy which by report revealed erosive esophagitis with several small shallow ulcers in the antrum and an ulcer in the second portion of the duodenum with some stigmata of recent bleeding. He was treated and did undergo follow-up EGD while he was still in inpatient which was reportedly normal. Per admission H &P This is a 74-year-old male who is here for acute on chronic CHF and large right-sided pleural effusion. GI was consulted for Hemoccult positive anemia. Hemoglobin this morning was 8.1 microcytic and hypochromic but is also pancytopenic with platelet count of 139. The patient was recently hospitalized for 67 days after a fall. He received 6 packed red cell transfusions and underwent EGD with found multiple ulcerations. Treated with twice daily Protonix and sucralfate 4 times daily. Repeat EGD during hospitalization noted cessation of bleeding per patient and his 's report. Patient has been consistent with his medication treatment. Looks like he was discharged from with a hemoglobin above 8 and is still anemic. He is not on oral iron supplements. The patient and report he did not receive any IV iron infusions while hospitalized that they are aware of. He is on Plavix and Xarelto with an extensive cardiac history. The patient does have an appointment with GI on October 21 in about 2 weeks. Patient denies melena or hematochezia at home. No nausea vomiting or abdominal pain. He reports he is able to eat and drink appropriately at home. He has been more constipated on the sucralfate. Hospital Course Hospital Course Hospital Course: 74-year-old male with multiple comorbidities including Parkinson's, heart failure with preserved ejection fraction, A-fib, chronic anticoagulation, metastatic prostate cancer and recent prolonged hospitalization due to hip fracture and complications thereafter. Presented with shortness of breath and chest pain. Found to have significant anemia concerning for blood loss anemia. Stool occult positive. Also had moderate bilateral pleural effusions and elevated BNP. Medicine consulted for admission. Cardiology, GI, pulmonology assisted with care during admission. Multiple discussions about possible EGD. Hemoglobin remained stable however. As patient had known disease with scope within the past 2 months, no worsening bleeding, will continue just medical management at this time. Thoracentesis was performed to evaluate pleural effusion. Had improvement in his oxygen requirement and respiratory status. Stable to discharge home with close follow-up with cardiology and pulmonology. GI recommended following up with where he is scheduled for reevaluation on [address]. Problems addressed as follows: Acute on chronic HFpEF History of A-fib Bilateral pleural effusions -BNP elevated to 5000 on admission. Initiated on Lasix 40 mg IV twice daily. Had significant negative output during admission. Improvement in edema and swelling in his legs and arm (left). Also had improvement in breathing/respiratory status. After thoracentesis, able to wean to room air prior to discharge home with sats in the low to mid 90s. Kidney function remained normal during admission with diuresis with creatinine ranging from 0.8-1.0. BUN ranged 8-13. Will continue Lasix 40 mg daily with addition of spironolactone 25 mg daily. Patient's telemetry consistently showed tachycardia that appeared to be A-fib that his pacemaker was trying to pace out of. Increased his metoprolol to metoprolol succinate 50 mg twice daily for improved rate control as he is 99% paced at this time already. Limited echo obtained shows preserved ejection fraction. Pulmonology and cardiology assisted with care. Plan to follow-up with cardiology in 1 to 2 weeks. Pulmonology evaluated and decision was made before with thoracentesis. Performed on 10/08. Approximately 750 cc of straw-colored fluid was removed. Cytology pending. Patient has history of sarcoidosis and metastatic prostate cancer. Unclear etiology however fluid at this time does not look infectious. Suspect related to CHF. Cannot rule out other etiologies as of yet. Follow with pulmonology as an outpatient for further management. Iron deficiency anemia with acute on chronic loss Suspected GI bleed History of peptic ulcer disease - Hemoglobin stable during admission at approximately 8. Had pancytopenia with low platelets at 127 on day of discharge and white count of 3.4. No transfusion needed during admission. Low MCV on labs. Administered 2 doses of 200 mg IV iron (Venofer) during admission. Would benefit from completion of full course with an additional 600 mg as an outpatient. Will defer to outpatient providers to schedule/PA this treatment. Held his Plavix and Xarelto on admission. After much discussion with cardiology, will switch to Eliquis for stroke prophylaxis for his A-fib. Discontinue Plavix as it has been exactly 1 year since his last heart cath and stent placement. Will monitor for any further signs of bleeding. Parkinson's: Continue carbidopa levodopa per home regimen 25/100mg tablet 3 times a day Diabetes: On decreased regimen during admission due to n.p.o. status intermittently. Resume home regimen at discharge of glargine 25 units daily, Farxiga 10 mg daily. Mirtazapine 7.5 mg nightly to aid with sleep History of metastatic prostate cancer. Currently undergoing chemical castration with bicalutamide. Resume at discharge Total time spent on discharge 42 minutes in counseling, documentation, chart review, and direct care with patient. Exam Data for Last 24 hours Vital signs and Labs for Last 24 Hours: Temp Pulse Resp BP Pulse Ox O2 Del Method O2 Flow Rate 97.6 F 60 16 135/51 L 99 Nasal Cannula 2 10/09/24 04:00 10/09/24 04:00 10/09/24 04:00 10/09/24 04:00 10/09/24 04:00 10/09/24 07:00 10/09/24 07:00 Laboratory Results - last 24 hr 10/08/24 06:12: Lactate Dehydrogenase 217 L 10/08/24 12:00: Fluid Source Thoracentesis fluid, Fluid Volume 750, Fluid Appearance Slightly cloudy, Fluid RBC (Auto) < 2000, Fld Tot Nucleated Cell 1277, Fld Polynuclear WBCs % 5, Fld Mononuclear WBCs % 95 10/08/24 13:10: POC Glucose 59 L 10/08/24 15:39: POC Glucose 91 10/08/24 20:13: POC Glucose 232 H 10/09/24 05:37: WBC 3.4 L, RBC 3.43 L, Hgb 8.1 L, Hct 27.7 L, MCV 80.8, MCH 23.6 L, MCHC 29.2 L, RDW 16.6, Plt Count 127 L, MPV 9.5, Neut % (Auto) 56.4, Lymph % (Auto) 23.4, [place] % (Auto) 13.2 H, Eos % (Auto) 6.4, Baso % (Auto) 0.6, Neut # (Auto) 1.9, Lymph # (Auto) 0.8, [place] # (Auto) 0.5, Eos # (Auto) 0.2, Baso # (Auto) 0.0, Sodium 135 L, Potassium 3.6, Chloride 100, Carbon Dioxide 33 H, Anion Gap 5.6, BUN 13 D, Creatinine 1.00 D, Estimated Creat Clear 60, Estimated GFR 73, Est GFR ( Amer) 88 D, Glucose 76 D, Calcium 8.8 I & O for Last 24 hours: Intake & Output 10/06/24 10/07/24 10/08/24 10/09/24 23:59 23:59 23:59 23:59 Intake Total 120 / 140 635 / 685 410 / 610 200 / 200 Output Total 1900 / 2400 2350 / 2350 1650 / 1650 400 / 400 Balance -1780 / -2260 -1715 / -1665 -1240 / -1040 -200 / -200 Weight 73.198 kg 74.616 kg 66.31 kg 66.678 kg Microbiology Reports for the Last 24 Hours: Microbiology 10/08/24 12:00 Pleural Fluid Gram Stain - Final 10/06/24 10:18 Blood Blood Culture - Preliminary NO GROWTH AFTER 48 HOURS 10/06/24 10:23 Blood Blood Culture - Preliminary NO GROWTH AFTER 48 HOURS Constitutional Constitutional: no acute distress, thin, chronically ill appearing and cooperative *Routine HEENT Exam Head: Present normocephalic Eye: Present EOMI and PERRL ENT: Present mucous membranes moist *Routine Neck Exam Neck: Present supple; Absent lymphadenopathy Routine Chest/Breast/Axilla Exam Chest wall: Absent tenderness *Routine Respiratory Exam Respiratory: Present prolonged expiratory phase and crackles (Left base more than right); Absent rhonchi or wheezes *Routine Cardiovascular Exam Cardiovascular: Present RRR Comments: Paced rhythm on telemetry, sounds regular on exam *Routine Abdominal Exam Abdominal: Present soft and normoactive bowel sounds; Absent tenderness *Routine Rectal Exam Patient deferred: visual exam *Routine Exam Patient deferred: penile exam *Routine Extremities Exam Extremities: Present edema (Trace in bilateral ankles and left arm.); Absent cyanosis or clubbing *Routine Skin Exam Skin: Present pallor and warm; Absent rash *Routine Neurological Exam Neurological: Present alert, oriented X3 and moving all extremities; Absent altered mental status Results Data Completed and Pending Labs on day of discharge: Labs from last 24 hours 10/09/24 10/08/24 10/08/24 05:37 20:13 15:39 WBC 3.4 L RBC 3.43 L Hgb 8.1 L Hct 27.7 L MCV 80.8 MCH 23.6 L MCHC 29.2 L RDW 16.6 Plt Count 127 L MPV 9.5 Neut % (Auto) 56.4 Lymph % (Auto) 23.4 [place] % (Auto) 13.2 H Eos % (Auto) 6.4 Baso % (Auto) 0.6 Neut # (Auto) 1.9 Lymph # (Auto) 0.8 [place] # (Auto) 0.5 Eos # (Auto) 0.2 Baso # (Auto) 0.0 Sodium 135 L Potassium 3.6 Chloride 100 Carbon Dioxide 33 H Anion Gap 5.6 BUN 13 D Creatinine 1.00 D Estimated Creat Clear 60 Estimated GFR 73 Est GFR ( Amer) 88 D Glucose 76 D POC Glucose 232 H 91 Calcium 8.8 Lactate Dehydrogenase Fluid Source Fluid Volume Fluid Appearance Fluid RBC (Auto) Fld Tot Nucleated Cell Fld Polynuclear WBCs % Fld Mononuclear WBCs % 10/08/24 10/08/24 10/08/24 13:10 12:00 06:12 WBC RBC Hgb Hct MCV MCH MCHC RDW Plt Count MPV Neut % (Auto) Lymph % (Auto) [place] % (Auto) Eos % (Auto) Baso % (Auto) Neut # (Auto) Lymph # (Auto) [place] # (Auto) Eos # (Auto) Baso # (Auto) Sodium Potassium Chloride Carbon Dioxide Anion Gap BUN Creatinine Estimated Creat Clear Estimated GFR Est GFR ( Amer) Glucose POC Glucose 59 L Calcium Lactate Dehydrogenase 217 L Fluid Source Thoracentesis fluid Fluid Volume 750 Fluid Appearance Slightly cloudy Fluid RBC (Auto) < 2000 Fld Tot Nucleated Cell 1277 Fld Polynuclear WBCs % 5 Fld Mononuclear WBCs % 95 Preliminary micro results at discharge 10/06/24 10:18 Blood Culture - Preliminary Blood NO GROWTH AFTER 48 HOURS 10/06/24 10:23 Blood Culture - Preliminary Blood NO GROWTH AFTER 48 HOURS DS: Diagnosis Discharge Diagnosis (1) Anemia: Status: Acute Code(s): D64.9 - Anemia, unspecified Qualifiers: Anemia type: iron deficiency Iron deficiency anemia type: chronic blood loss Qualified Code(s): D50.0 - Iron deficiency anemia secondary to blood loss (chronic) (2) Gastric ulcer: Status: Acute Code(s): K25.9 - Gastric ulcer, unspecified as acute or chronic, without hemorrhage or perforation (3) Occult blood positive stool: Status: Acute Code(s): R19.5 - Other fecal abnormalities (4) Pleural effusion, bilateral: Status: Acute Code(s): J90 - Pleural effusion, not elsewhere classified (5) Acute respiratory failure with hypoxia: Status: Acute Code(s): J96.01 - Acute respiratory failure with hypoxia (6) Pancytopenia: Status: Acute Code(s): D61.818 - Other pancytopenia (7) Acute on chronic heart failure with preserved ejection fraction (HFpEF): Status: Acute Code(s): I50.33 - Acute on chronic diastolic (congestive) heart failure (8) Cardiac pacemaker in situ: Status: Chronic Code(s): Z95.0 - Presence of cardiac pacemaker (9) Diabetes mellitus: Status: Chronic Code(s): E11.9 - Type 2 diabetes mellitus without complications Qualifiers: Diabetes mellitus type: type 2 Diabetes mellitus intermodal dispatcher insulin use: with intermodal dispatcher use Diabetes mellitus complication status: without complication Qualified Code(s): E11.9 - Type 2 diabetes mellitus without complications; Z79.4 - care home (current) use of insulin (10) HTN (hypertension): Status: Chronic Code(s): I10 - Essential (primary) hypertension Qualifiers: Hypertension type: essential hypertension Qualified Code(s): I10 - Essential (primary) hypertension (11) HLD (hyperlipidemia): Status: Chronic Code(s): E78.5 - Hyperlipidemia, unspecified Qualifiers: Hyperlipidemia type: other hyperlipidemia Qualified Code(s): E78.49 - Other hyperlipidemia (12) Parkinson's disease: Status: Chronic Code(s): G20.A1 - Parkinson's disease without dyskinesia, without mention of fluctuations Meds Home Medications and Allergies Home Medications ?Medication ?Instructions ?Recorded ?Confirmed ?Type cyanocobalamin (vitamin B-12) 1,000 mcg PO DAILY Supplement 06/09/22 10/06/24 History 1,000 mcg tablet latanoprost 0.005 % eye drops 1 drp Eye-Both HS 09/20/23 10/06/24 History carbidopa 25 mg-levodopa 100 mg 1 tab PO TID 02/07/24 10/06/24 History tablet acetaminophen 500 mg tablet 1,000 mg PO .THREE TIMES WEEKLY 10/06/24 10/06/24 History bicalutamide 50 mg tablet 50 mg PO DAILY 10/06/24 10/06/24 History insulin glargine 100 unit/mL (3 25 unit SQ DAILY 10/06/24 10/06/24 History mL) subcutaneous pen (Lantus Solostar U-100 Insulin) melatonin 3 mg tablet 3 mg PO HS 10/06/24 10/06/24 History mirtazapine 15 mg tablet 7.5 mg PO HS 10/06/24 10/06/24 History nitroglycerin 0.4 mg sublingual 0.4 mg sublingual Q5MINP PRN Chest 10/06/24 10/06/24 History tablet Pain pantoprazole 40 mg tablet,delayed 40 mg PO BID 10/06/24 10/06/24 History release potassium chloride 20 mEq 20 meq PO DAILY 10/06/24 10/06/24 History tablet,extended release(part/cryst) sucralfate 100 mg/mL oral 10 ml PO QID 10/06/24 10/06/24 History suspension apixaban 5 mg tablet (Eliquis) 5 mg PO BID 30 days #60 tabs 10/09/24 Rx atorvastatin 40 mg tablet 80 mg (2 x 40 mg) PO HS 30 days 10/09/24 Rx #60 tabs cefdinir 300 mg capsule 300 mg PO BID 1 day #2 caps 10/09/24 Rx dapagliflozin propanediol 10 mg 10 mg PO DAILY 30 days #30 tabs 10/09/24 Rx tablet (Farxiga) furosemide 40 mg tablet (Lasix) 40 mg PO DAILY #30 tabs 10/09/24 Rx metoprolol succinate 50 mg 50 mg PO BID 30 days #60 tabs 10/09/24 Rx tablet,extended release 24 hr spironolactone 25 mg tablet 25 mg PO DAILY 30 days #30 tabs 10/09/24 Rx New Prescriptions to Start Prescriptions: apixaban [Eliquis] aJyy Rivas atorvastatin Evelyn,Jayy cefdinir Jayy Rivas dapagliflozin propanediol [Farxiga] Jayy Rivas furosemide [Lasix] Jayy Rivas metoprolol succinate Jayy Rivas spironolactone Jayy Rivas Allergies Allergy/AdvReac Type Severity Reaction Status Date / Time No Known Allergies Allergy Verified 05/14/24 10:01 Discharge Plan Disposition Patient Disposition: Home Health Service Condition: Fair Discharge Order Discharge Orders: Discharge Order (Routine); Ordered 10/09/24 Ordered By: Jayy Rivas Follow up Plan Follow up with: Jake Demarco PA [Physician Finishing Range Operator, Cardiology] - 10/15/24 9:30 am Eric Maria [Referring, Medical] - 10/17/24 11:20 am ProviderJean Carlos MD [Primary Care Provider, Medical] - Enter time for follow up Keith Medina MD [Physician, Pulmonology] - 10/18/24 12:00 pm Prescriptions/Medication Reconciliation: New Eliquis 5 mg tablet 5 mg PO BID 30 Days Qty: 60 0RF metoprolol succinate 50 mg tablet extended release 24 hr 50 mg PO BID 30 Days Qty: 60 0RF atorvastatin 40 mg Tablet 80 mg PO HS 30 Days Qty: 60 0RF dapagliflozin propanediol [Farxiga] 10 mg Tablet 10 mg PO DAILY 30 Days Qty: 30 0RF furosemide [Lasix] 40 mg tablet 40 mg PO DAILY Qty: 30 0RF spironolactone 25 mg Tablet 25 mg PO DAILY 30 Days Qty: 30 0RF cefdinir 300 mg capsule 300 mg PO BID 1 Days Qty: 2 0RF Rx Instructions: take on 10/10/24 Continued latanoprost 0.005 % drops 1 drp Eye-Both HS carbidopa-levodopa 25-100 mg tablet 1 tab PO TID Patient Comments: TAKE ONE (1) TABLET BY MOUTH THREE (3) TIMES DAILY cyanocobalamin (vitamin B-12) 1,000 mcg tablet 1,000 mcg PO DAILY Patient Comments: TAKE ONE (1) TABLET EVERY DAY BY ORAL ROUTE FOR 30 DAYS. bicalutamide 50 mg tablet 50 mg PO DAILY Patient Comments: TAKE 1 TABLET BY MOUTH DAILY sucralfate 100 mg/mL suspension 10 ml PO QID Patient Comments: TAKE 10 ML FOUR (4) TIMES A DAY BY ORAL ROUTE BEFORE MEAL(S). melatonin 3 mg tablet 3 mg PO HS Patient Comments: TAKE ONE (1) TABLET BY MOUTH EVERY DAY BY ORAL ROUTE AT BEDTIME. acetaminophen 500 mg tablet 1,000 mg PO .THREE TIMES WEEKLY potassium chloride 20 mEq tablet,ER particles/crystals 20 meq PO DAILY Patient Comments: TAKE ONE (1) TABLET EVERY DAY BY ORAL ROUTE FOR 7 DAYS. Rx Instructions: TAKING FOR 7 DAYS pantoprazole 40 mg tablet,delayed release (DR/EC) 40 mg PO BID Patient Comments: TAKE ONE (1) TABLET BY MOUTH TWICE DAILY DIRECTED nitroglycerin 0.4 mg tablet, sublingual 0.4 mg sublingual Q5MINP PRN (Reason: Chest Pain) Patient Comments: DISSOLVE 1 TABLET UNDER TONGUE EVERY 5 MINUTES FOR 3 DOSES NEEDED FOR CHEST PAIN-NO RELIEF CALL 911 mirtazapine 15 mg tablet 7.5 mg PO HS Patient Comments: TAKE ONE HALF (1/2) TABLET BY MOUTH AT BEDTIME Rx Instructions: TAKE 1/2 TABLET AT BEDTIME insulin glargine [Lantus Solostar U-100 Insulin] 100 unit/mL (3 mL) insulin pen 25 unit SQ DAILY Discontinued clopidogrel 75 mg tablet 75 mg PO DAILY Qty: 90 3RF metoprolol tartrate 25 mg tablet 25 mg PO BID Patient Comments: TAKE 1 TABLET BY MOUTH TWICE DAILY Xarelto 20 mg tablet 20 mg PO QPMWITHMEAL Problem Reconciliation Problems Reviewed?: Yes Patient Discharge Instructions ACTIVITY: Continue current activity DIET: continue same diet Patient Instructions: Anemia, DI for Heart Failure, DI for Pneumonia -- Adult, DI for Thoracentesis, DI for Surgical Site Infection, Stop Light Pneumonia, Stop Light Heart Failure Print Language: Monegasque Providers Primary Care Provider: Provider,Referral Admit Provider: Riley Barber Attending Provider: Riley Barber
[2024-10-09] MEDS: FUROSEMIDE 40MG/4ML VIAL 40 MG IV (08:35)
[2024-10-09] MEDS: IRON SUCROSE COMPLEX 200 MG in 0.9 % SODIUM CHLORIDE 100 ML 220 MG IV (08:35)
[2024-10-09] MEDS: DAPAGLIFLOZIN PROPANEDIOL 10 MG TABLET PO (08:35)
[2024-10-09] MEDS: CARBIDOPA/LEVODOPA 25/100MG TABLET 1 EACH PO ×2 (08:35→12:02)
--- NOTE | 2024-10-09 08:35 | P.PN_ITS ---
Subjective *Date: 10/09/24 *Time: 09:01 Medical Exam Vital signs and Labs for Last 24 Hours: Vital Signs Temp Pulse Pulse Resp BP Pulse Ox O2 Del Method 10/09/24 07:00 Nasal Cannula 10/09/24 05:00 Nasal Cannula 10/09/24 04:00 97.6 F 60 16 135/51 L 99 Nasal Cannula 10/09/24 04:00 65 10/09/24 03:00 Nasal Cannula 10/09/24 01:00 Nasal Cannula 10/09/24 00:00 63 10/09/24 00:00 98.6 F 65 16 124/48 L 97 Nasal Cannula 10/08/24 23:00 Nasal Cannula 10/08/24 21:00 Nasal Cannula 10/08/24 20:00 95 Nasal Cannula 10/08/24 20:00 98.6 F 79 16 135/64 95 Nasal Cannula 10/08/24 20:00 80 10/08/24 19:20 97.2 F L 76 18 121/57 L 95 Room Air 10/08/24 17:59 Nasal Cannula 10/08/24 17:15 80 18 10/08/24 17:00 Nasal Cannula 10/08/24 16:00 60 10/08/24 15:38 98.1 F 70 18 131/50 L 99 Nasal Cannula 10/08/24 15:00 Room Air 10/08/24 14:38 93 L Room Air 10/08/24 13:00 Nasal Cannula 10/08/24 12:00 60 19 118/51 L 100 Room Air 10/08/24 11:00 Nasal Cannula O2 Flow Rate 10/09/24 07:00 2 10/09/24 05:00 2 10/09/24 04:00 2 10/09/24 04:00 10/09/24 03:00 2 10/09/24 01:00 2.5 10/09/24 00:00 10/09/24 00:00 2 10/08/24 23:00 2 10/08/24 21:00 2 10/08/24 20:00 2 10/08/24 20:00 2 10/08/24 20:00 10/08/24 19:20 10/08/24 17:59 2 10/08/24 17:15 10/08/24 17:00 10/08/24 16:00 10/08/24 15:38 2 10/08/24 15:00 10/08/24 14:38 10/08/24 13:00 2 10/08/24 12:00 10/08/24 11:00 2 Intake and Output 10/08/24 10/09/24 10/09/24 23:59 07:59 15:59 Intake Total 360 / 610 200 / 200 Output Total 700 / 1650 400 / 400 Balance -340 / -1040 -200 / -200 Intake: Intake, Oral Amount 360 / 510 150 / 150 Intake, Total IV Amount 50 / 50 Ceftriaxone 1 gm 1 gm In 0.9 % 50 / 50 Sodium Chloride 50 ml @ 100 mls /hr IV Q24H [facility] Rx#:[id number] Output: Output, Urine Amount 700 / 1650 400 / 400 Other: Number of Unmeasured Voids 0 Number of Bowel Movements 1 Weight 66.31 kg 66.678 kg Patient Weight 10/09/24 23:59 Weight 66.678 kg Laboratory Results - last 24 hr 10/08/24 06:12: Lactate Dehydrogenase 217 L 10/08/24 12:00: Fluid Source Thoracentesis fluid, Fluid Volume 750, Fluid Appearance Slightly cloudy, Fluid RBC (Auto) < 2000, Fld Tot Nucleated Cell 1277, Fld Polynuclear WBCs % 5, Fld Mononuclear WBCs % 95 10/08/24 13:10: POC Glucose 59 L 10/08/24 15:39: POC Glucose 91 10/08/24 20:13: POC Glucose 232 H 10/09/24 05:37: WBC 3.4 L, RBC 3.43 L, Hgb 8.1 L, Hct 27.7 L, MCV 80.8, MCH 23.6 L, MCHC 29.2 L, RDW 16.6, Plt Count 127 L, MPV 9.5, Neut % (Auto) 56.4, Lymph % (Auto) 23.4, [place] % (Auto) 13.2 H, Eos % (Auto) 6.4, Baso % (Auto) 0.6, Neut # (Auto) 1.9, Lymph # (Auto) 0.8, [place] # (Auto) 0.5, Eos # (Auto) 0.2, Baso # (Auto) 0.0, Sodium 135 L, Potassium 3.6, Chloride 100, Carbon Dioxide 33 H, Anion Gap 5.6, BUN 13 D, Creatinine 1.00 D, Estimated Creat Clear 60, Estimated GFR 73, Est GFR ( Amer) 88 D, Glucose 76 D, Calcium 8.8 I & O for Labs for Last 24 Hours: Intake & Output 10/06/24 10/07/24 10/08/24 10/09/24 23:59 23:59 23:59 23:59 Intake Total 120 / 140 635 / 685 410 / 610 200 / 200 Output Total 1900 / 2400 2350 / 2350 1650 / 1650 400 / 400 Balance -1780 / -2260 -1715 / -1665 -1240 / -1040 -200 / -200 Weight 73.198 kg 74.616 kg 66.31 kg 66.678 kg Microbiology Reports for the Last 24 Hours: Microbiology 10/08/24 12:00 Pleural Fluid Gram Stain - Final 10/06/24 10:18 Blood Blood Culture - Preliminary NO GROWTH AFTER 48 HOURS 10/06/24 10:23 Blood Blood Culture - Preliminary NO GROWTH AFTER 48 HOURS The patient's infection will respond to the chosen ABx?: Yes (PLEURAL FLUID CX PENDING, BLOOD CX NO GROWTH, AFEBRILE OVER 24 HR) Is the patient receiving the right drug, dose, and route?: Yes Could a more targeted ABx be ordered?: No How long ABx needed (days)?: 5
[2024-10-09] MEDS: SPIRONOLACTONE 25MG TABLET 25 MG PO (08:36)
[2024-10-09] MEDS: METOPROLOL TARTRATE 25MG TABLET 25 MG PO (08:36)
[2024-10-09] MEDS: PANTOPRAZOLE 40MG VIAL 40 MG IV (08:36)
[2024-10-09] MEDS: SUCRALFATE 1GM/10ML SUSP UDC 1 GM PO ×2 (08:36→12:01)
[2024-10-09] MEDS: INSULIN GLARGINE 100 UNITS/ML 3ML FLEXPEN 15 UNIT SUBCUT (08:37)
[2024-10-09 08:56] LABS: POC Glucose,Bedside 302 (70-110)
--- NOTE | 2024-10-09 09:11 | SW/DCPLANNER ---
Addendum entered by Radha Mckeon 10/09/24 11:06: [facility] is able to accept patient. Gricelda Casiano Original Note: Spoke with patient and his once he is medically stable and ready for discharge if he would be interested in home health services. Patient and his stated that they are and that he just finished up about a month ago with [facility]. I will fax patient's information to [facility] and once i hear back i will update if they can accept patient or not. Gricelda Casiano
[2024-10-09] MEDS: METOPROLOL SUCCINATE XL 25MG TABLET 25 MG PO (10:05)
--- NOTE | 2024-10-09 10:33 | EXP.CARD.PN ---
Subjective Subjective Date: 10/09/24 Time: 10:00 Interval history: Denies symptoms this morning No further bleeding 02 94% on room air HR 120s today with v-pacing - asymptomatic Exam Data for Last 24 hours Vital signs and Labs for Last 24 Hours: Temp Pulse Resp BP Pulse Ox O2 Del Method O2 Flow Rate 98.9 F 55 L 18 101/51 L 94 L Nasal Cannula 2 10/09/24 08:00 10/09/24 08:00 10/09/24 08:00 10/09/24 08:00 10/09/24 08:00 10/09/24 09:00 10/09/24 09:00 Laboratory Results - last 24 hr 10/08/24 06:12: Lactate Dehydrogenase 217 L 10/08/24 12:00: Fluid Source Thoracentesis fluid, Fluid Volume 750, Fluid Appearance Slightly cloudy, Fluid RBC (Auto) < 2000, Fld Tot Nucleated Cell 1277, Fld Polynuclear WBCs % 5, Fld Mononuclear WBCs % 95 10/08/24 13:10: POC Glucose 59 L 10/08/24 15:39: POC Glucose 91 10/08/24 20:13: POC Glucose 232 H 10/09/24 05:37: WBC 3.4 L, RBC 3.43 L, Hgb 8.1 L, Hct 27.7 L, MCV 80.8, MCH 23.6 L, MCHC 29.2 L, RDW 16.6, Plt Count 127 L, MPV 9.5, Neut % (Auto) 56.4, Lymph % (Auto) 23.4, [place] % (Auto) 13.2 H, Eos % (Auto) 6.4, Baso % (Auto) 0.6, Neut # (Auto) 1.9, Lymph # (Auto) 0.8, [place] # (Auto) 0.5, Eos # (Auto) 0.2, Baso # (Auto) 0.0, Sodium 135 L, Potassium 3.6, Chloride 100, Carbon Dioxide 33 H, Anion Gap 5.6, BUN 13 D, Creatinine 1.00 D, Estimated Creat Clear 60, Estimated GFR 73, Est GFR ( Amer) 88 D, Glucose 76 D, Calcium 8.8 10/09/24 08:36: POC Glucose 302 H* I & O for Last 24 hours: Intake & Output 10/06/24 10/07/24 10/08/24 10/09/24 23:59 23:59 23:59 23:59 Intake Total 120 / 140 635 / 685 410 / 610 640 / 640 Output Total 1900 / 2400 2350 / 2350 1650 / 1650 450 / 450 Balance -1780 / -2260 -1715 / -1665 -1240 / -1040 190 / 190 Weight 161 lb 6 oz 164 lb 8 oz 146 lb 3 oz 147 lb Microbiology Reports for the Last 24 Hours: Microbiology 10/08/24 12:00 Pleural Fluid Gram Stain - Final 10/06/24 10:18 Blood Blood Culture - Preliminary NO GROWTH AFTER 48 HOURS 10/06/24 10:23 Blood Blood Culture - Preliminary NO GROWTH AFTER 48 HOURS Constitutional Constitutional: no acute distress and cooperative Comments: pale, flat affect *Routine HEENT Exam Eye: Present PERRL *Routine Respiratory Exam Respiratory: Present CTA bilaterally; Absent accessory muscle use, wheezes or crackles *Routine Cardiovascular Exam Cardiovascular: Present RRR, Normal S1 and Normal S2; Absent murmur, gallop or rubs *Routine Abdominal Exam Abdominal: Present soft; Absent tenderness Comments: mild diffuse abdominal pressure' on palpation *Routine Extremities Exam Extremities: Present pulses intact; Absent cyanosis or edema *Routine Skin Exam Skin: Present intact; Absent erythema or wounds *Routine Neurological Exam Neurological: Present alert and oriented X3 Comments: flat affect Routine Psychiatric Exam Psychiatric: Present cooperative Progress Note: A&P Assessment and plan (1) Anemia: Status: Acute (2) Gastric ulcer: Status: Acute (3) Occult blood positive stool: Status: Acute (4) Pleural effusion, bilateral: Status: Acute (5) Acute on chronic heart failure with preserved ejection fraction (HFpEF): Status: Acute (6) HTN (hypertension): Status: Chronic (7) HLD (hyperlipidemia): Status: Chronic (8) CAD (coronary artery disease): Status: Chronic (9) Pleural effusion: Status: Acute (10) Pancytopenia: Status: Acute (11) Atrial fibrillation: Status: Chronic Assessment and Plan Assessment and Plan for All Diagnoses:: Acute on chronic HFpEF - largely normal ECHO but hx of A-fib, PPM, CAD and here with HUNG, Large Bilat Pleural Effusions and ProBNP 5k - diuresing well with Lasix - device interrogation reported nml function, no alerts, no a-fib - add Farxiga and Aldactone - Euvolemic, tolerating meds. Large Bilateral Pleural Effusions - HFpEF possibly contributing, but seems out of proportion - consider underlying pulm source, pt/family report metastatic prostate cancer to nodes pt has multiple prior enlarged nodes on CT chest here as far back as 2022 - s/p thoracentesis, cytology pending CAD - NSTEMI/PETEY 2018 and PETEY 10/2023, [employer] 2nd Diag - CCS = 0 - ECHO - nml BI-V function, no WMA - Trop - nml x3 - EKG - A-fib with V-pacing - cont BB/statin - discussed risk/benefits with patient and his . Will hold Plavix and resume OAC but with Eliquis due to what appears to be mild chronic GI bleeding. PAF/SSS s/p Bi-V PPM - Device download shows 0% A-fib, AP 41% BVP 99% - Xarelto on hold due to GI bleed, pancytopenia, and elevated INR - continue metoprolol - Tachy 120s this am but v-pacing. Device download 2 days ago indicated no A-fib but was prior to thoracentesis. Will increase Metoprolol and interrogate PPM. Will monroe Xarelto to Eliquis. Pancytopenia - WBC 2.9, Hgb 8.3, Plt 135 - etiology? - presented on Xarelto, Plavix, and elevated INR - stable, will need close monitoring outpatient. Need visit with Dr. Teran due to Prostate Cancer, elevated INR, and Pancytopenia Elevated INR - no known cirrhosis - likely secondary to Xarelto Sarcoidosis - history unclear - presume Pulm and followed by Metastatic Prostate Cancer - recent spread to 'nodes' per family - details unclear, presume inguinal lymph nodes - on Bicalutamide chemo - recommend OP Heme/Onc Recurrent GI Bleed - pos hemoccult here - H/H low but stable - discussed risk/benefits with patient and his . He's >1 year from last stents so we can DC Plavix. 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 Will try change Xarelto to Eliquis due to some studies showing reduced GI bleeding in elderly. Parkinson's Disease - dx 1 year ago - ambulatory at home, lives with who helps - on Carbidopa/Levodopa Complex pt with worrisome picture - CAD, HFpEF, PAF, large bilateral effusions, metastatic cancer, sarcoidosis, pancytopenia, recurrent GI bleed, 3 prior CVA, PK-DZ. 10/09 - further CV recs/plans pending PPM download today
[2024-10-09 11:08] VITALS: O2SAT 94
[2024-10-09 11:22] LABS: POC Glucose,Bedside 259 (70-110)
[2024-10-09] MEDS: humaLOG 100 UNITS/ML 10ML VIAL (SSI) SUBCUT (12:01)
[2024-10-09] MEDS: AZITHROMYCIN 250MG TABLET 500 MG PO (12:01)
[2024-10-09] MEDS: CEFTRIAXONE 1 GM 1 GM in 0.9 % SODIUM CHLORIDE 50 ML IV (13:18)
--- NOTE | 2024-10-10 11:25 | SW/DCPLANNER ---
Spoke with patient's on the phone. Patient's stated that he is doing good and that his heart rate is up just a little. Patient's stated she is aware of her husbands appointments. Patient's stated that his new medicine was brought to the room from Clinic pharmacy. Patient's stated that she has no concerns or questions at this time. Gricelda Casiano
[2024-10-10 11:49] LABS: POC Glucose,Bedside 88 (70-110)
[2024-10-10 17:11] LABS: Albumin, Body Fluid 2.0 g/dL (Not Estab.); Glucose, Body Fluid 75 mg/dL (.); LD, Body Fluid 163 IU/L (.)
== END 2024-10-09 14:28 | disposition home health service (06) | DRG 291 ==
LOC: ER 10:46 → 2ND 11:52
PROVIDERS: Internal Medicine Adolescent Medicine; Internal Medicine Pulmonary Disease; Admitting Provider Internal Medicine; Emergency Provider Student in an Organized Health Care Education/Training Program; Visit Provider Internal Medicine
DX: I11.0 Hypertensive heart disease with heart failure (principal); I50.33 Acute on chronic diastolic (congestive) heart failure; J96.01 Acute respiratory failure with hypoxia; K25.4 Chronic or unspecified gastric ulcer with hemorrhage; J91.8 Pleural effusion in other conditions classified elsewhere; D61.818 Other pancytopenia; C77.4 Secondary and unspecified malignant neoplasm of inguinal and lower limb lymph nodes; I48.11 Longstanding persistent atrial fibrillation; G20.A1 Parkinson's disease without dyskinesia, without mention of fluctuations; D50.0 Iron deficiency anemia secondary to blood loss (chronic); I25.10 Atherosclerotic heart disease of native coronary artery without angina pectoris; I25.82 Chronic total occlusion of coronary artery; I48.91 Unspecified atrial fibrillation; E78.49 Other hyperlipidemia; I49.5 Sick sinus syndrome; D86.0 Sarcoidosis of lung; C61 Malignant neoplasm of prostate; I42.9 Cardiomyopathy, unspecified; E10.9 Type 1 diabetes mellitus without complications; R79.83 Abnormal findings of blood amino-acid level; Z95.0 Presence of cardiac pacemaker; Z95.5 Presence of coronary angioplasty implant and graft; Z86.73 Personal history of transient ischemic attack (TIA), and cerebral infarction without residual deficits; Z79.4 Long term (current) use of insulin; Z79.01 Long term (current) use of anticoagulants; Z79.02 Long term (current) use of antithrombotics/antiplatelets; Z79.899 Other long term (current) drug therapy
CPT/HCPCS: 32555; 36415; 71045; 71275; 76705; 80048; 80053; 82042; 82272; 82945; 82962; 83615; 83880; 84145; 84157; 84484; 85014; 85018; 85025; 85378; 85610; 86803; 86850; 87040; 87070; 87205; 87389; 89051; 93005; 93306; 94640; 97110; 97163; 97165; 97530; G0328; J0456; J0696; J1756; J1938; J2470; J7050; Q9967

== ENCOUNTER 2024-10-15 10:15 | Outpatient (CLI) | payer MEDICARE, MEDICAID, SELFPAY ==
--- OUTSIDE RECORDS SUMMARY | 2024-09-12 08:00 | XMS_ITS | Encounter Summary ---
Author Organization Healthcare Address [address] [place] [address] Care Team Providers Care Palaeontologist Name Role Phone Eric Maria MD Primary Care Provider Encounter Details Date Type Department Care Team (Latest Contact Info) Description 09/12/2024 8:00 AM EDT [facility] [address], [address] [place] [id number] Sarcoidosis; Shortness of breath Social History Tobacco [...] and Family Not on file 06/24/2024 Attends [employer] Not on file 06/24 Active Member [...] any time in the past 12 m [facility], were you homeless or living in a skilled nursing (including now)? No 06/24/2024 Utilities Answer Date [...] Description 10/24/2024 10:45 AM EDT Office Visit [facility] Medicine Specialties [address], [address] [place] [address] Jennifer Barber APRN, OMAR [address] [facility] [address] [place] [address] 11/21/2024 9:30 AM EDT Office Visit [facility] [address], [address] [place] [address] Chu Null MD [address] [facility] [address] [place] [address] 09/11/2025 10:00 AM EDT Ancillary Procedure [facility] [address], [address] [place] [address] 09/11/2025 11:00 AM EDT Office Visit [facility] [address], [address] [place] [address] Jeff Longoria MD [address] [place] [address] documented as of this encounter [...] Pulmonary function test (09/12/2024 8:36 AM EDT) GTF3JKG 2.84(A) 2.87 - 4.99 L VYAIRE PFT FVC PRED 3.92 VYAIRE PFT FVC LLN 2.87 VYAIRE PFT FVCPREZSCORE -1.69 VYAIRE PFT FVCPRE%PRED 72 % % VYAIRE PFT FVC PREDAUT US_[place] GLI (2011) VYAIRE PFT FVC Z-SCORE -1.69 VYAIRE PFT FEV1 PRE 2.15 2.08 - 3.74 L VYAIRE PFT FEV1 PRED 2.94 VYAIRE PFT FEV1 LLN 2.08 VYAIRE PFT SKD5GUDVIQCKV -1.52 VYAIRE PFT FEV1_Pre%Pred 73 % % VYAIRE PFT FEV1 PREDAUT US_[place] GLI (2011) VYAIRE PFT FEV1 Z-SCORE -1.52 VYAIRE PFT FEV1/FVC PRE 75.58 61.31 - 88.08 % VYAIRE PFT OOG4MGSHGNB 75 VYAIRE PFT QWQ7FGTFLF 61 VYAIRE PFT YAB8WSZOILADKOBX 0.02 VYAIRE PFT AJB9BIWDEI%PRED 100 % % VYAIRE PFT HAH9VLBOXZNK US_[place] GLI (2011) VYAIRE PFT YOM5BKPHLDIZU 0 VYAIRE PFT HGS92-41% PRE 1.79 0.88 - 4.02 L/s VYAIRE PFT WPN91-33%_Pred 2.16 VYAIRE PFT VKR4317%LLN 0.88 VYAIRE PFT XLO2927%PREZSCORE -0.41 VYAIRE PFT SEC3471%PRE%PRED 83 % % VYAIRE PFT AJY4269%PREDAUT US_[place] GLI (2011) VYAIRE PFT PEF PRE 4.44(A) 5.35 - 9.86 L/s VYAIRE PFT PEF PRED 7.61 VYAIRE PFT PEF LLN 5.35 VYAIRE PFT PEFPREZSCORE -2.31 VYAIRE PFT PEFPRE%PRED 58 % % VYAIRE PFT PEF PREDPRESBY[facility] NHANES III (1998) VYAIRE PFT EVSGNJWIUYFSTDIL7ERT 8.88(A) 17.76 - 32.27 ml/(min* mmHg) VYAIRE PFT DLCOSINGLEBREATH PRED 24.36 VYAIRE PFT DLCOSINGLEBREATH LLN 17.76 VYAIRE PFT DLCOSINGLEBREATH Z-SCORE -4.61 VYAIRE PFT DLCOSINGLEBREATH % PRED 36.5 % VYAIRE PFT DLCOSINGLEBREATH PREDPRESBYTERIAN [facility] Stanojevic TLCO GLI (2019) VYAIRE PFT DLCOSINGLEBREATH Z-SCORE -4.61 09/12/2024 8:27 AM EDT VYAIRE PFT EUPWKLJDNLQFDKMVE9JL E 8.88(A) 17.76 - 32.27 ml/(min* mmHg) VYAIRE PFT DLCOCSINGLEBREATH PRED 24.36 VYAIRE PFT DLCOCSINGLEBREATH LLN 17.76 VYAIRE PFT DLCOCSINGLEBREATH Z-SCORE -4.61 VYAIRE PFT DLCOCSINGLEBREATH % PRED 36.5 % VYAIRE PFT DLCOCSINGLEBREATH PREDWake Forest Baptist Health Davie Hospitalvic TLCO GLI (2019) VYAIRE PFT YSVBLU5SZR 2.13(A) 2.92 - 5.14 ml/(min* mmHg*L) VYAIRE PFT DLCOVAPRED 3.98 VYAIRE PFT DLCOVALLN 2.92 VYAIRE PFT DLCOVAZSCORE -3.02 VYAIRE PFT DLCOVA%PRED 53.5 % VYAIRE PFT DLCOVAPREDPRESBYTERIAN SANT[facility] Stanojevic TLCO GLI (2019) VYAIRE PFT DLCOVAZSCORE -3.02 09/12/2024 8:27 AM EDT VYAIRE PFT MWUIZDMZV1LHO 2.13(A) 2.92 - 5.14 ml/(min* mmHg*L) VYAIRE PFT DLCOC SB/VA PRED 3.98 VYAIRE PFT DLCOC SB/VA LLN 2.92 VYAIRE PFT DLCOC SB/VA Z-SCORE -3.02 VYAIRE PFT DLCOC SB/VA % PRED 53.5 % VYAIRE PFT DLCOC SB/VA PREDPRES[facility] Stanojevic TLCO GLI (2019) VYAIRE PFT DLCOC SB/VA Z-SCORE -3.02 09/12 8:27 AM EDT VYAIRE PFT DRABFNISKLCUYA0UBU 4.17(A) 4.94 - 7.45 L VYAIRE PFT VASINGLEBREATH PRED 6.15 VYAIRE PFT VASINGLEBREATH LLN 4.94 VYAIRE PFT VASINGLEBREATH Z-SCORE -2.77 VYAIRE PFT VASINGLEBREATH % PRED 67.9 % VYAIRE PFT VASINGLEBREATH PREDPRESBY[facility] Stanojevic TLCO GLI (2019) VYAIRE PFT VASINGLEBREATH Z-SCORE -2.77 09/12/2024 8:27 AM EDT VYAIRE PFT EDIETRWQBVMNYBS5SUZ 2.60(A) 2.87 - 4.99 L VYAIRE PFT IVCSINGLEBREATH PRED 3.92 VYAIRE PFT IVCSINGLEBREATH LLN 2.87 VYAIRE PFT IVCSINGLEBREATH Z-SCORE -2.07 VYAIRE PFT IVCSINGLEBREATH % PRED 66.3 % VYAIRE PFT IVCSINGLEBREATH PREDAUTPRESBYTERIAN [facility]_Quanjer GLI (2011) VYAIRE PFT ISATU% VCMAX PRE 87.23 % VYAIRE PFT TLC SB PRE 4.32(A) 5.39 - 8.38 L VYAIRE PFT TLCSINGLEBREATH PRED 6.87 VYAIRE PFT TLCSINGLEBREATH LLN 5.39 VYAIRE PFT TLCSINGLEBREATH Z-SCORE -2.85 VYAIRE PFT TLCSINGLEBREATH % PRED 62.9 % VYAIRE PFT TLCSINGLEBREATH PREDMarlborough Hospital Lung volumes GLI (2019)__ VYAIRE PFT HB PRE 14.60 g(Hb)/dL VYAIRE PFT EOB0AYC 4.95(A) 5.39 - 8.38 L VYAIRE PFT TLCPRED 6.87 VYAIRE PFT TLCLLN 5.39 VYAIRE PFT TLCULN 8.38 VYAIRE PFT TLCZSCORE -2.14 VYAIRE PFT TLC%PRED 72.0 % VYAIRE PFT TLCPREDMarlborough Hospital Lung volumes GLI (2019)__ VYAIRE PFT [...] VYAIRE PFT IC%PRED 61.0 % VYAIRE PFT ICPREDMarlborough Hospital Lung volumes GLI (2019)__ VYAIRE PFT CJTHVPNZ5YKO 3.14 2.65 - 5.23 L VYAIRE PFT FRCPLETH PRED 3.80 VYAIRE PFT FRCPLETH LLN 2.65 VYAIRE PFT FRCPLETH ULN 5.23 VYAIRE PFT FRCPLETH Z-SCORE -0.90 VYAIRE PFT FRCPLETH % PRED 82.6 % VYAIRE PFT FRCPLETH PREDMarlborough Hospital Lung volumes GLI (2019)__ VYAIRE PFT RJZ9YJX 1.17 0.35 - 2.42 L VYAIRE PFT [...] [place] Lung volumes GLI (2019)__ VYAIRE PFT RV%EVE1LQW 39.80 25.64 - 50.70 % VYAIRE PFT [...] underwent pulmonary function testing today at the [facility]. The patient underwent spirometry, lung volumes by [...] documented as of this encounter Care Teams Palaeontologist Relationship Specialty Start Date End Date Eric Maria MD [address] [place] [id number] PCP - General 11/04/20 documented as of this encounter
--- OUTSIDE RECORDS SUMMARY | 2024-09-12 09:30 | XMS_ITS | Encounter Summary ---
Author Organization [facility] Address [address] [place] [address] Care Team Providers Care Immigration Law Specialist Name Role Phone Eric Maria MD Primary Care Provider [phone] Reason for Referral * Consultation (Routine) - Authorized Specialty Diagnoses / Procedures Referred By Manuela munoz Referred To Contact Diagnoses Pulmonary sarcoidosis (CMS/HCC) Dyspnea on exertion Jeff Longoria MD [address] [place] [address] Phone: tel: fax: Referral ID Status Reason Start Date Expiration Date V isits Requested Visits Authorized [id number] Authorized 09/12/2024 03/14/2026 1 1 Reason for Visit * Reason Comments Sarcoidosis Encounter Details Date Type Department Care Team (Late st Contact Info) Description 09/12/2024 9:30 AM EDT Office Visit [facility] [address] [place] [address] Jeff Longoria MD [address] [place] [address] Pulmonary sarcoidosis (CMS/HCC) (Primary Dx); Dyspnea on exertion Social History Tobacco Use Types Packs/Day Years Used Date Smoking Tobacco: Never Passive Smoke Exposure: Current Smokeless Tobacco: Current Chew Tobacco Cessation:Ready to Q uit: Not Asked; Counseling Given: Not Answered Alcohol Use Standard Drinks/Week Comments Not Currently [...] and Family Not on file 06/24/2024 Attends [employer] Services Not on file 06/24 Active Member [...] any time in the past [address] [facility], were you homeless or living in a [facility] (including now)? No 06/24/2024 Utilities Answer Date [...] AM EDT documented as of this encounter Last Filed Vital Signs Vital Sign Reading Time Taken Comments Blood Pressure 120/67 09/12/2024 8:30 AM EDT Pulse 60 09/12/2024 8:30 AM EDT Temperature 36.9 C (98.4 F) 09/12/2024 8:30 AM EDT Respiratory Rate 16 09/12/2024 8:30 AM EDT Oxygen Saturation 100% 09/12/2024 8:30 AM EDT ra Inhaled Oxygen Concentration - - Weight 64.8 kg (142 lb 13.7 oz) 09/12/2024 8:30 AM EDT Height 175.3 cm (5' 9 ) 09/12/2024 8:30 AM EDT Body Mass Index 21.1 09/12/2024 8:30 AM EDT documented in this encounter Functional Status * Over the past 2 weeks, how often have you been bothered by any of the following problems? Question Answer Date of Assessment Author Little interest or pleasure in doing things Not at all 09/12/2024 9:04 AM EDT Jessica Ga Feeling down, depressed, or hopeless Not at all 09/03 9:04 AM Jessica Flores Patient Health Questionnaire-2 Score 0 09/03 9:04 AM Jessica Flores * Question Answer Date of Assessment Author [...] Not difficult at all 09/12/2024 9:04 AM Jessica Flores * How difficult have these problems made it for you to do your work, take care of things at home, or get along with other people? Answer Date of Assessment Author Not difficult at all 09/12/2024 9:04 AM Jessica Flores documented as of this encounter Miscellaneous Notes * Progress Notes - Jeff Longoria MD - 09/12/2024 9:30 AM EDT Reason for Follow Up: Sarcoidosis History of Present Illness: Gerry Pollock is a 74 y.o. years old male with a PMHx of Sarcoidosis, CAD, CVA x2, s/p ID x3, pacemaker, prostate cancer The patient was diagnosed with sarcoidosis in early 2019, after he had a PET CT done and then he had a right sided CT guided axillary LN with findings suggestive of non-caseating granulomas. He was being followed by Dr. Dewitt with no indication for treatment. He also had significant fatigue and dyspnea on exertion which were attributed to his cardiac history. He was also diagnosed with prostatecancer and started on Hormonal therapy. Last seen in clinic, he mentioned that over the past year he'd hardly been able to do anything. He had shortness of breath even at rest and only ADL he did was get up to let the dogs out. He denied any cough, any triggers for his dyspnea. He had occasional chest tightness. In June,, he had a loose pacemaker lead reimplanted and had myocardial injury with pericardial bleeding needing drainage . He had never taken part in any for of rehab. More recently, he was noted to have shaking in his extremities and his PCP deemed him to have early onset Parkinson's disease. Given the stability of his improvement and actual improvement in PFTs, it seemed unlikely that his dyspnea was from pulmonary sarcoid. He also had normal EF and RV size and function on screening echo. One posibility was small airway disease scott given the mosaicism on his chest CT so we recommended starting with an albuterol. However, decondition seemed to be playing a major part so we referred him to PT/OT with cardiac rehab. Last seen in clinic, he had completed Pulm Rehab but didn't not much improvement in his dyspnea which he had with even ADLs. e said he had a cardiac stress test for which we have a preliminary reportshowing reversible ischemia. There were also concerns that his Parkinsonism was worsening and he had a Neurology appointment coming up. He also is on hormonal therapy for prostrate cancer. We ordered a repeat CT Chest to look for any new or progressive pulmonary parenchymal diseases and requested tank wagon driver notes, nuclear stress and Cath results. Otherwise, he didn't meet any criteria for treatment as of yet. 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 He had a left hip fracture s/p left hip hemiarthroplasty on 05/30 and discharged on DOAC for DVT ppx. Once her returned home from rehab he had an episode of black stool and an episode of coffee-ground emesis. EGD at [facility] revealed multiplenon-bleeding ulcerations,. Seen today in clinic, he was on a wheelchair and accompanied by his . He wasn't very keen on talking and appeared slightly depressed. He has been needing assistance with ADLs like showering, getting breakfast. He has been walking with the help of a walker in his housebut hasn't gone out yet. He denies any cough or chest pain. He had questions about going out [facility] and risk of infections. We discussed immunization which he declined. He is also taking hormonal therapy for his prostrate cancer. Past Medical & Surgical History: Past Medical History[1] Surgical History[2] Medications: Current Medications[3] Allergies: Allergies[4] Family History: Family History[5] Immunizations: There is no immunization history on file for this patient. Review of Systems Constitutional: Negative Eyes: Negative Ears, nose, mouth, throat, and face: Negative Respiratory: Shortness of breath with mild exertion. Cardiovascular: Negative Gastrointestinal: Negative Genitourinary: Negative Musculoskeletal: Negative Neurological: Negative Behavioral/Psych: Negative Hematologic/lymphatic: Negative Endocrine: Negative Allergic/Immunologic: Negative Visit Vitals BP 120/67 Pulse 60 Temp 36.9 ??C (98.4 ??F) (Oral) Ht 1.753 m (5' 9 ) Wt 64.8 kg (142 lb 13.7 oz) SpO2 100% Comment: ra BMI 21.10 kg/m?? Labs: I have personally reviewed the labs 07/09/24 Creatinine 0.77 Anion Gap 9 BUN 8 BUN/Creatinine Ratio 10 EGFR 93.9 Calcium 8.9 Albumin 3.3 (L) Total Protein 5.2 (L) ALT, Plasma <5 (L) AST, Plasma 14 Total Bilirubin, Plasma 0.6 Alkaline Phosphatase 154 (H) 05/07/19 11/03/23 VITAMIN D, 1, 25-DIHYDROXY 35.5 Vit D, 25-Hydroxy 13.4 (L) 16.3 (L) Quant Gold: -ve Fungal Serology: -ve Radiology: I have personally reviewed and interpreted the images CT Chest (06/24/24): Pleura: Ectasia of ascending thoracic aorta measuring up to 4 cm, without change. Moderately dilated proximal pulmonary arterial circuit. . Stable borderline enlarged mediastinallymph nodes, with predilection to right paratracheal station. Pre-existing circumferential thickening along the bilateral proximal lower lobe, right middle lobe and to lesser extent lingular bronchovascular bundles, with concomitant interstitial marking nodularity. Multiple bilateral scattered discrete lung nodules, all fairly unchanged compared to 2023. Echo (06/24/24): Normal LV size and The left ventricular systolic function is normal. Estimated LVEF 50-55%. The septal motion is most consistent with a conduction abnormality. The right ventricle isnormal in size. Nuclear Stress Scan (08/28/23): Adenosine mediated Lexiscan. Shows transient ischemic dilation. CT Chest (11/04/20): Bilateral mediastinal and hilar adenopathy is similar to comparison. Right axillary lymph nodes are stable from comparison. No pleural effusion. Re demonstration of multiple bilateral small pulmonary nodules, stable within measurement error from comparison with the largest measuring up to [address] Chest (08/19/19): Numerous small and borderline enlarged mediastinal lymph nodes. Multiple bilateral pulmonary nodules, predominantly in subpleural locations, with the largest nodule measuring 8 mm in the right lower lobe Echo (06/10/22): Pericardium: There is a small pericardial effusion. There is no echocardiographic evidence of cardiac tamponade. The right ventricular systolic function is normal. he left ventricular systolic function is normal. The LVEF is visually estimated at 60 - 65%. PFT: I have personally interpreted the test results FEV1: 2.15 (73%) FVC: 2.84 (72%) FEV1/FVC: 76% T.95 (72%) RV/T% DLCO: 8.88 (37%) Date FEV1 FVC FEV1/FVC TLC DLCO 09/12/24 2.15 (73%) 2.84 (72%) 76% 4.95 (72% 8.88 (37%) 10/24/23 2.33 (78%) 2.98 (75%) 78% 5.55 (81%) 10.30 (42%) 03/02/23 2.35 (79%) 3.41 (86%) 69% 11.90 (48%) 06/24/20 2.26 (73%) 2.58 (63%) 88% 5.85 (85%) 12.85 (52%) Visit Diagnoses: 1. Pulmonary sarcoidosis (CMS/HCC) 2. Dyspnea on exertion Assessment and Plan: Sarcoidosis He has pulmonary nodules and lymphadenopathy which have been fairly stable over past 3 years. He also has stable PFTs (except reduced DLCO which maybe because of his anemia now). His Echo didn't showany signs of PH/RV dysfunction and normal EF so suspicions of Cardiac sarcoid is low. He has no signs of extra pulmonary sarcoidosis except the recently noted hypercalcemia, thus warranting any treatment for sarcoidosis at present. On his previous blood work, he was noted to have hypercalcemia but that has normalized and his 1,25 OH Vit D is also normal. Thus, overall he doesn't meet any indication for systemic therapy of his sarcoidosis - CBC, CMP, repeat ionized Calcium levels ordered - PFTs at next visit 2. Shortness of Breath: Likely Multi factorial. His dyspnea is even at rest and not associated with a significant cough, seems unlikely related to sarcoid and even pulmonary in origin. At this point it is mostly deconditioning following his fracture, surgery and prolonged hospitalization. He also has cardiac issues. We obtained report from his ca rdiologist and looks like he had an abnormal nuclear stress test followed by RCA stenting. We encouraged him to slowly starting to increase his activity. 3. Ischemic Cardiomyopathy We received his Lexiscan test which showed transient Ischemic dilation. Subsequently, he had a cardiac cath which showed hemodynamically significant RCA lesion which was stented. I will follow up with patient in 12 months with PFTs Today 35 minutes were spent on today's visit including time spent on care and coordination along with education regarding his/her diagnosis and medications, as well as review of records and imaging, excluding procedures. Signature: Jeff Longoria MD Director, Sarcoidosis Clinic Interstitial Lung Diseases Program Division of Pulmonary, Critical Care and Sleep Medicine [facility] [1] Past Medical History: Diagnosis Date CAD (coronary artery disease) Carotid artery occlusion 2 heart attacks Cataract post replacement CVA (cerebral vascular accident) ([facility]/HCC) Depression DM (diabetes mellitus) type II, controlled, with peripheral vascular disorder ([facility]/HCC) Erectile dysfunction Glaucoma Headache Headache, tension-type Heart attack (CMS/HCC) 2x HTN (hypertension) Old myocardial infarction History of myocardial infarction Parkinson's disease early onset Parkinsons-Dr. Maria Personal history of transient ischemic attack (TIA), and cerebral infarction without residual deficits History of cerebrovascular accident Presence of cardiac pacemaker History of cardiac pacemaker Prostate cancer (CMS/HCC) Metastatic, on oral chemotherapy Sarcoidosis mediastinal adenopathy, pulmonary nodules, and splenic granulomas Shingles Stroke (CMS/[facility]) 3x Tremor both hands Vision loss macular degenration and mild glaucaoma Weakness of limb [2] Past Surgical History: Procedure Laterality Date CARDIAC PACEMAKER PLACEMENT N/A Pacemaker Placement from [email or web address] CARDIAC STENT Right 09/27/2023 CAROTID STENT CATARACT EXTRACTION N/A Cataract surgery from [email or web address] CORONARY ANGIOPLASTY WITH STENT PLACEMENT N/A Cardiac catheterization with stent placement from [email or web address] [3] Current Outpatient Medications Medication Sig Dispense Refill acetaminophen (Tylenol) 325 MG tablet Take 2 tablets by mouth every 4 hours as needed for fever (for temperature > 38.5). Under [place] law, monthly prescriptions (30 days) can be refilled at 25 days and three-month prescriptions (90 days) at 80 days. Please contact the insurance company with questions if refills are denied. albuterol 108 (90 Base) MCG/ACT inhaler INHALE TWO (2) PUFFS FOUR (4) (FOUR) TIMES A DAY. bicalutamide (Casodex) 50 MG chemo tablet bisacodyl (Dulcolax) 10 MG suppository Insert 1 suppository into the rectum daily. 12 suppository 0 carbidopa-levodopa (Sinemet) 25-100 MG tablet Take 1 tablet by mouth 3 (three) times a day. 180 tablet 3 clopidogrel (Plavix) 75 MG tablet Take 1 tablet by mouth daily. cyanocobalamin 1000 MCG tablet Take 1 tablet by mouth daily. fluticasone (Flonase) 50 MCG/ACT nasal spray Administer 1 spray into each nostril as needed for allergies. insulin lispro (Admelog) 100 UNIT/ML injection Inject 0-5 Units under the skin 3 times a day with meals. See After Visit Summary for instructions on how to take your insulin. insulin lispro (Admelog) 100 UNIT/ML injection Inject 0-3 Units under the skin 2 times a night. SeeAfter Visit Summary for instructions on how to take your insulin. latanoprost (Xalatan) 0.005 % ophthalmic solution Administer 1 drop into both eyes nightly. leuprolide (Lupron) 11.25 MG injection Inject 11.25 mg into the muscle every 6 (six) months. melatonin tablet Take 3 tablets by mouth at night as needed for sleep. Methylcobalamin [address] under the tongue. metoprolol tartrate (Lopressor) 25 MG tablet Take 1 tablet by mouth 2 times a day. mirtazapine (Remeron) 15 MG tablet TAKE ONE HALF (1/2) TABLET BY MOUTH AT BEDTIME nitroglycerin (Nitrostat) 0.[address] 1 tablet under the tongue as needed. pantoprazole (Protonix) 40 MG EC tablet Take 1 tablet by mouth every 12 hours. Do not crush, chew, or split. polyethylene glycol (Miralax) 17 g packet Take 17 g by mouth 2 times a day. potassium chloride CR (K-Tab) 20 MEQ ER tablet Take 1 tablet every day by oral route for 14 days. senna-docusate (Dhara-Colace) 8.6-50 MG tablet Take 2 tablets by mouth 2 times a day. Xarelto 20 MG tablet Take 1 tablet by mouth daily. [Paused] furosemide (Lasix) 40 MG tablet Take 1 tablet by mouth daily. lisinopril 40 MG tablet 40 mg by oral route. (Patient not taking: Reported on 09/12/2024) pravastatin (Pravachol) 80 MG tablet TAKE ONE (1) TABLET EVERY DAY BY ORAL ROUTE. (Patient not taking: Reported on 09/12/2024) [Paused] ramipril (Altace) 10 MG capsule TAKE ONE (1) CAPSULE ONCE DAILY [Paused] spironolactone (Aldactone) 25 MG tablet Take 1 tablet by mouth daily. No current facility-administered medications for this visit. [4] No Known Allergies [5] Family History Problem Relation Name Age of Onset Heart failure Mother Louisa Brendon Macular degeneration Mother Louisalisandro Olivas Blindness Mother Louisaalyssa Olivas Kidney failure Mother Louisa Olivas Stroke Mother Louisa Olivas Other cancer Mother's Brother Stroke Maternal Grandfather Other cancer Other documented in this encounter Plan of Treatment Upcoming Encounters Date Type Department Care Team (Late st Contact Info) Description 10/24/2024 10:45 AM EDT Office Visit [facility] Medicine Specialties [address] [place] [address] Jennifer Barber, LIONEL, DNP [address] [place] [address] 11/21/2024 9:30 AM EDT Office Visit [facility] [address] [place] [address] Chu Null MD [address] [place] [address] 09/11/2025 10:00 AM EDT Ancillary Procedure [facility] Medicine [facility] [address], [address] [place] [phone] 09/11/2025 11:00 AM EDT Office Visit [facility] Medicine [facility] [address], [address] [place] [phone] Jeff Longoria MD [address] [place] [id number] Scheduled Orders Name Type Priority Associated Diagnoses Orde r Schedule Pulmonary function testing PFT Routine Pulmonary sarcoidosis ([facility]) Dyspnea on exertion Expected: 09/12/2025, Expires: 03/16/2026 Comprehensive Metabolic Panel, Plasma Lab Routine Pulmonary sarcoidosis (CMS/HCC) Expected: 09/12/2025, Expires: 03/15/2026 CBC and Differential Lab Routine Pulmonary sarcoidosis ([facility]) Expected: 09/12/2025, Expires: 03/15/2026 Scheduled Referrals Name Type Priority Associated Diagnoses Orde r Schedule Follow Up Pulm Outpatient Referral Routine Pulmonary sarcoidosis (CMS/HCC) Dyspnea on exertion Expected: 09/12/2025, Expires: 10/13/2025 documented as of this encounter Goals Goal Patient Goal Type Associated Problems Recent Progress Patient-Stated? Author Autogenerat ed Goal Care Plan Autogenerated Problem No Antonia Johnson RN Autogenerat ed Goal Care Plan Autogenerated Problem No Antonia Johnson RN documented as of this encounter Visit Diagnoses Diagnosis Pulmonary sarcoidosis (CMS/HCC)- Primary Sarcoidosis Dyspnea on exertion Other dyspnea and respiratory abnormality documented in this encounter Additional Health Concerns [...] documented as of this encounter Care Teams Immigration Law Specialist Relationship Specialty Start Date End Date Eric Maria MD [address] [place] [address] PCP - General 11/04/20 documented as of this encounter
--- OUTSIDE RECORDS SUMMARY | 2024-10-15 10:23 | XMS_ITS | Clinical Summary ---
Author Organization [facility] Address [address] [place] [address] Care Team Providers Care Direct Service Professional Name Role Phone Eric Maria MD Primary Care Provider [phone] Allergies No known active allergies Medications clopidogrel (Plavix) 75 MG tablet Take 1 tablet by mouth daily. Active nitroglycerin (Nitrostat) 0.[address] 1 tablet under the tongue as needed. Active Xarelto 20 MG tablet Take 1 tablet by mouth daily. Active ramipril (Altace) 10 MG capsule TAKE ONE (1) CAPSULE ONCE DAILY Active bicalutamide (Casodex) 50 MG chemo tablet [...] day. 180 tablet 3 024 2024 Discontinued Active Problems Problem Noted Date Diagnosed Date Shock 06/27/2024 Severe protein-calorie malnutrition 06/26/2024 GIB (gastrointestinal bleeding) 06/23/2024 Parkinson's disease without dyskinesia or fluctuating manifestations 11/03/2023 Encounters Date Type Department Care Team Description 09/13/2024 Refill [facility] [address], [address] [place] [address] Chris Stratton MBBS 09/12/2024 9:30 AM EDT Office Visit [facility] Medicine Specialties [address] [facility], [address]nd [place] [address] Jeff Longoria MD Pulmonary sarcoidosis (CMS/HCC) (Primary Dx); Dyspnea on exertion 09/12/2024 8:00 AM EDT Ancillary Procedure [facility] Medicine [place] [address] [facility], [address]nd [place] [address] Sarcoidosis; Shortness of breath 09/12/2024 Travel 09/10/2024 Travel from Last 3 Months Family History Medical [...] and Family Not on file 06/24/2024 Attends [employer]reg[employer] Not on file 06/24 Active Member [...] any time in the past 12 m [facility], were you homeless or living in a senior living (including now)? No 06/24/2024 Utilities Answer Date Recorded In the past 12 months has th e [place], gas, oil, or water company threatened to [...] Description 10/24/2024 10:45 AM EDT Office Visit [facility] [address], [address] [place] [address] Jennifer Barber APRN, DNP [address] [place] [address] 11/21/2024 9:30 AM EDT Office Visit [facility] [address], [address] [place] [address] Chu Null MD [address] [place] [address] 09/11/2025 10:00 AM EDT Ancillary Procedure [facility] Medicine Specialties [address], [address] [place] [address] 09/11/2025 11:00 AM EDT Office Visit [facility] Medicine Specialties [address], [address] [place] [address] Jeff Longoria MD [address] [place] [address] Health Maintenance Due Date Last Done Comments [facility]-Medicare Annual Wellness (AWV) 1950 [facility]-Infant/Child/Adol SDOH Screenings 1950 [id number] Vaccine (#1) 1955 Diabetes: Dental Exam 07/27/1960 [...] Plan Autogenerated Problem No Antonia Johnson RN Procedures Procedure Name Priority Date/Time Associated Diagnosis Comments HC DIFFUSING CAPACITY - CARBON MONOXIDE DIFFUSING CAPACITY Routine 09/12/2024 8:36 AM EDT Sarcoidosis Shortness of breath EGD Routine 07/08/2024 1:41 PM EDT Gastrointestinal hemorrhage, unspecified gastrointestinal hemorrhage type ACUTE HEPATITIS PANEL Routine 06/24/2024 12:17 AM EDT HEMOGLOBIN A1C Routine 06/24/2024 12:17 AM EDT from Last 3 Months or Most Recently Relevant to Health Maintenance Results * (ABNORMAL) Pulmonary function test (09/12/2024 8:36 AM EDT) PVS0JHR 2.84(A) 2.87 - 4.99 L VYAIRE PFT FVC PRED 3.92 VYAIRE PFT FVC LLN 2.87 VYAIRE PFT FVCPREZSCORE -1.69 VYAIRE PFT FVCPRE%PRED 72 % % VYAIRE PFT FVC PREDAUTH US_Quanjer GLI (2012) VYAIRE PFT FVC Z-SCORE -1.69 VYAIRE PFT FEV1 PRE 2.15 2.08 - 3.74 L VYAIRE PFT FEV1 PRED 2.94 VYAIRE PFT FEV1 LLN 2.08 VYAIRE PFT JGK2SWRABTYIY -1.52 VYAIRE PFT FEV1_Pre%Pred 73 % % [facility]AIRE P[facility] (2011) VYAIRE PFT FEV1 Z-SCORE -1.52 VYAIRE PFT FEV1/FVC PRE 75.58 61.31 - 88.08 % VYAIRE PFT ZYR6SCPOATD 75 VYAIRE PFT TIB7XCXUZF 61 VYAIRE PFT CHN0VKNGKHHFFJLJ 0.02 VYAIRE PFT ZTI1OLHBFN%PRED 100 % % VYAIRE PFT OVH9EJQOHSMQ [facility] (2011) VYAIRE PFT FKS6JZWIZVLZX 0 VYAIRE PFT PEY93-80% PRE 1.79 0.88 - 4.02 L/s VYAIRE PFT RDA33-61%_Pred 2.16 VYAIRE PFT MGJ9656%LLN 0.88 VYAIRE PFT JPE1133%PREZSCORE -0.41 VYAIRE PFT SGK0010%PRE%PRED 83 % % VYAIRE PFT KIX4401%PREDAUTJefferson [facility] Hospital (2011) VYAIRE PFT PEF PRE 4.44(A) 5.35 - 9.86 L/s VYAIRE PFT PEF PRED 7.61 VYAIRE PFT PEF LLN 5.35 VYAIRE PFT PEFPREZSCORE -2.31 VYAIRE PFT PEFPRE%PRED 58 % % VYAIRE PFT PEF PREDAUT NHANES III (1998) VYAIRE PFT XZBGICMFFGHBUFSY2SXB 8.88(A) 17.76 - 32.27 ml/(min* mmHg) VYAIRE PFT DLCOSINGLEBREATH PRED 24.36 VYAIRE PFT DLCOSINGLEBREATH LLN 17.76 VYAIRE PFT DLCOSINGLEBREATH Z-SCORE -4.61 VYAIRE PFT DLCOSINGLEBREATH % PRED 36.5 % VYAIRE PFT DLCOSINGLEBREATH PR[facility]AL[facility] Stanojevic TLCO GLI (2019) VYAIRE PFT DLCOSINGLEBREATH Z-SCORE -4.61 09/12/2024 8:27 AM EDT VYAIRE PFT IATHHOJNHEUKUCCJS1JA E 8.88(A) 17.76 - 32.27 ml/(min* mmHg) VYAIRE PFT DLCOCSINGLEBREATH PRED 24.36 VYAIRE PFT DLCOCSINGLEBREATH LLN 17.76 VYAIRE PFT DLCOCSINGLEBREATH Z-SCORE -4.61 VYAIRE PFT DLCOCSINGLEBREATH % PRED 36.5 % VYAIRE PFT DLCOCSINGLEBREATH [facility]AL[facility] Stanojevic TLCO GLI (2019) VYAIRE PFT EKMENT8LYT 2.13(A) 2.92 - 5.14 ml/(min* mmHg*L) VYAIRE PFT DLCOVAPRED 3.98 VYAIRE PFT DLCOVALLN 2.92 VYAIRE PFT DLCOVAZSCORE -3.02 VYAIRE PFT DLCOVA%PRED 53.5 % VYAIRE PFT DLCOVAPREDAUT Stanojevic TLCO GLI (2019) VYAIRE PFT DLCOVAZSCORE -3.02 09/12/2024 8:27 AM EDT VYAIRE PFT VCRRWOLJX4MGF 2.13(A) 2.92 - 5.14 ml/(min* mmHg*L) VYAIRE PFT DLCOC SB/VA PRED 3.98 VYAIRE PFT DLCOC SB/VA LLN 2.92 VYAIRE PFT DLCOC SB/VA Z-SCORE -3.02 VYAIRE PFT DLCOC SB/VA % PRED 53.5 % VYAIRE PFT DLCOC SB/VA [facility]AL[facility] Stanojevic TLCO GLI (2019) VYAIRE PFT DLCOC SB/VA Z-SCORE -3.02 09/12 8:27 AM EDT VYAIRE PFT DSSNHXOKLKTWHJ9JBC 4.17(A) 4.94 - 7.45 L VYAIRE PFT VASINGLEBREATH PRED 6.15 VYAIRE PFT VASINGLEBREATH LLN 4.94 VYAIRE PFT VASINGLEBREATH Z-SCORE -2.77 VYAIRE PFT VASINGLEBREATH % PRED 67.9 % VYAIRE PFT VASINGLEBREATH PREDAUT Stanojevic TLCO GLI (2019) VYAIRE PFT VASINGLEBREATH Z-SCORE -2.77 09/12/2024 8:27 AM EDT VYAIRE PFT SPXUGBMPNNRWJJZ8IOG 2.60(A) 2.87 - 4.99 L VYAIRE PFT IVCSINGLEBREATH PRED 3.92 VYAIRE PFT IVCSINGLEBREATH LLN 2.87 VYAIRE PFT IVCSINGLEBREATH Z-SCORE -2.07 VYAIRE PFT IVCSINGLEBREATH % PRED 66.3 % VYAIRE PFT IVCSINGLEBREATH PREDST. [facility]IS [facility] GLI (2011) VYAIRE PFT ISATU% VCMAX PRE 87.23 % VYAIRE PFT TLC SB PRE 4.32(A) 5.39 - 8.38 L VYAIRE PFT TLCSINGLEBREATH PRED 6.87 VYAIRE PFT TLCSINGLEBREATH LLN 5.39 VYAIRE PFT TLCSINGLEBREATH Z-SCORE -2.85 VYAIRE PFT TLCSINGLEBREATH % PRED 62.9 % VYAIRE PFT TLCSINGLEBREATH PREDChelsea [facility] Lung volumes GLI (2019)__ VYAIRE PFT HB PRE 14.60 g(Hb)/dL VYAIRE PFT XEG5LEO 4.95(A) 5.39 - 8.38 L VYAIRE PFT TLCPRED 6.87 VYAIRE PFT TLCLLN 5.39 VYAIRE PFT TLCULN 8.38 VYAIRE PFT TLCZSCORE -2.14 VYAIRE PFT TLC%PRED 72.0 % VYAIRE PFT TLCPREDAUTMer[facility] Lung volumes GLI (2019)__ VYAIRE PFT [...] VYAIRE PFT IC%PRED 61.0 % VYAIRE PFT ICPREDAUTMercy Health [facility] Hospital Lung volumes GLI (2019)__ VYAIRE PFT YPZSCTLF4IIO 3.14 2.65 - 5.23 L VYAIRE PFT FRCPLETH PRED 3.80 VYAIRE PFT FRCPLETH LLN 2.65 VYAIRE PFT FRCPLETH ULN 5.23 VYAIRE PFT FRCPLETH Z-SCORE -0.90 VYAIRE PFT FRCPLETH % PRED 82.6 % VYAIRE PFT FRCPLETH PREDAUTMer[facility] Health [facility] Hospital Lung volumes GLI (2019)__ VYAIRE PFT QXW9CLV 1.17 0.35 - 2.42 L VYAIRE PFT ERVPRED 1.18 VYAIRE PFT ERVLLN 0.35 VYAIRE PFT ERVULN 2.42 VYAIRE PFT ERV Z-SCORE -0.02 VYAIRE PFT ERV%PRED 99.2 % VYAIRE PFT ERVPREDChelsea Naval Hospital Lung volumes GLI (2019)__ VYAIRE PFT RV0PRE 1.97 1.48 - 3.91 L VYAIRE PFT RVPRED 2.58 VYAIRE PFT RVLLN 1.48 VYAIRE PFT RVULN 3.91 VYAIRE PFT RVZSCORE -0.86 VYAIRE PFT RV%PRED 76.4 % VYAIRE PFT RVPREDAUTMercy Health [facility] Hospital Lung volumes GLI (2019)__ VYAIRE PFT RV%XBW1ZRQ 39.80 25.64 - 50.70 % VYAIRE PFT RV%TLCPRED 38 VYAIRE PFT RV%TLCLLN 26 VYAIRE PFT RV%TLCULN 51 VYAIRE PFT RV%TLCZSCORE 0.25 VYAIRE PFT RV%TLC%PRED 105.1 % VYAIRE PFT RV%TLCPREDChelsea Naval Hospital Lung volumes GLI (2019)__ VYAIRE PFT Anatomical Region Laterality Modality PFT 09/12/2024 7:57 AM EDT Narrative 09/13/2024 11:13 AM EDT Pulmonary Function Testing Report Gerry Pollock 74 y.o. underwent pulmonary function testing today at the [facility]. The patient underwent spirometry, lung volumes [...] Longoria MD PFT ORDERABLES Final Result * EGD ROSE SERRANO; 07/08/2024 (07/08/2024 1:41 PM EDT) Anatomical Region [...] abdominal pain, fever, gastrointestinal bleeding and call certified meeting professional GI if present. - Findings and recommendations were discussed with patient immediately following the procedure in PACU - Findings and recommendations to be conveyed to primary team. Indication Gastrointestinal hemorrhage, unspecified gastrointestinal hemorrhage type Medications See anesthesia record for anesthesia administered medications. Staff Staff Role Sofia Mcdowell CRNA CRNA Bingcang, Oliver B Endo Electronic Instrument Trades Worker Rose Serrano MD Proceduralist Deirdre Kwok RN Endo Nurse [...] to procedure documentation due to tech difficulties Vanessa Bustillos MD GI PROCEDURE ORDERABLES Final R esult * Acute Hepatitis Panel (06/24/2024 12:17 AM EDT) Pathologist [facility] Hepatitis B Surf Antigen Negative Negative 06/24/2024 1:35 AM EDT [facility] Hepatitis C Antibody Negative Negative 06/24/2024 1:35 AM EDT [facility] Hepatitis A Antibody IgM Negative Negative 06/24/2024 1:35 AM EDT [facility] Hepatitis B Core Antibody IgM Negative Negative 06/24/2024 1:35 AM EDT [facility] Blood Venous blood specimen / Unknown Venipuncture / Unknown 06/24/2024 12:17 AM EDT 06/24/2024 12:31 AM EDT Shemar ARIAS LAB BLOOD ORDERABLES Final R esult [facility] [address] [place] [address] * Hemoglobin A1c (06/24/2024 12:17 AM EDT) Hemoglobin A1c 5.3 <5.7 % 06/24/2024 7:20 AM EDT [facility] Blood Venous blood specimen / Unknown Venipuncture / Unknown 06/24/2024 12:17 AM EDT 06/24/2024 12:31 AM EDT Narrative [facility] - 06/24/2024 7:20 AM EDT HA1C Interpretive Data: Diagnosis of Diabetes: Diabetic > or = 6.5% Pre-diabetic 5.7 to 6.4% Non-diabetic < or = 5.6% Glycemic Targets for Type I and Type II Diabetics: Non- Adults <7.0% Adults <6.0% Children and Adolescents <7.5% Source: [place] [employer]. Standards of medical care in diabetes,2017. Diabetes Care.2017:40 (suppl 1):S1-S135. us Shemar K Melvi PA LAB BLOOD ORDERABLES Final R esult [facility] [address] [place] [address] from Last 3 Months or Most Recently Relevant to Health Maintenance Additional Health Concerns Active Problems Noted Date Diagnosed Date Autogenerated Problem 06/25/2024 Autogenerated Problem 07/08/2024 Insurance MEDICA[place] MEDICARE Advance Directives * Full Code (Latest Code Status on File) Date Activated Date Inactivated Comments 06/25/2024 11:20 AM 07/10/2024 1:55 PM Question Answer Comments I have reviewed the capacity from the link above and, if needed, have updated to appropriate status: Yes Care Teams Direct Service Professional Relationship Specialty Start Date End Date Eric Maria MD [address] [place] [address] PCP - General 11/04/20
--- OUTSIDE RECORDS SUMMARY | 2024-10-15 10:23 | XMS_ITS | Encounter Summary ---
Author Organization [facility] Address [address] [place] [address] Care Team Providers Care Chaplain Name Role Phone Eric Maria MD Primary Care Provider Encounter Details Date Type Department Care Team (Late st Contact Info) Description 05/25/2024 Orders Only External Location [address] [place] [address] Provider, External Social History Tobacco Use Types [...] Description 10/24/2024 10:45 AM EDT Office Visit [place] [facility] Medicine Specialties [address], [address] [place] [address] Jennifer Barber, ZIPPER MEASURER, DNP [address] [place] [phone] 11/21/2024 9:30 AM EDT Office Visit [facility] [address], [address] [place] [address] Chu Null MD [address] [place] [address] 09/11/2025 10:00 AM EDT Ancillary Procedure [facility] Medicine Specialties [address], [address] [place] [address] 09/11/2025 11:00 AM EDT Office Visit [place] [address] [place] [address] Jeff Longoria MD [address] [place] [address] documented as of this encounter [...] documented as of this encounter Care Teams Chaplain Relationship Specialty Start Date End Date Eric Maria MD [address] [place] [address] PCP - General 11/04/20 documented as of this encounter
--- OUTSIDE RECORDS SUMMARY | 2024-10-15 10:23 | XMS_ITS | Encounter Summary ---
Author Organization [facility] Address [address] [place] [address] Care Team Providers Care Sales Representative Meats Name Role Phone Eric Maria MD Primary Care Provider Encounter Details Date Type Department Care Team (Late st Contact Info) Description 05/27/2024 Orders Only External Location [address] [place] [address] Provider, External Social History Tobacco Use Types [...] Description 10/24/2024 10:45 AM EDT Office Visit [place] [facility] Medicine Specialties [address], [address] [place] [address] Jennifer Barber, HUMAN RELATIONS MANAGER, DNP [address] [place] [phone] 11/21/2024 9:30 AM EDT Office Visit [facility] [address] [place] [address] Chu Null MD [address] [place] [address] 09/11/2025 10:00 AM EDT Ancillary Procedure [facility] Medicine Specialties [address], [address] [place] [address] 09/11/2025 11:00 AM EDT Office Visit [place] [address] [place] [address] Jeff Longoria MD [address] [place] [address] documented as of this encounter [...] documented as of this encounter Care Teams Sales Representative Meats Relationship Specialty Start Date End Date Eric Maria MD [address] [place] [address] PCP - General 11/04/20 documented as of this encounter
--- OUTSIDE RECORDS SUMMARY | 2024-10-15 10:23 | XMS_ITS | Encounter Summary ---
Author Organization [facility] ([place], [place], [place], [place]) Address [address] [place] [address] Care Team Providers Care Motivational Speaker Name Role Phone Unavailable Primary Care Provider Unavailabl e Encounter Details Date Type Department Care Team (Late st Contact Info) Description 01/10/2019 Transcribed Document [facility] [place] [address] [place] [address] ProviderJose MD [address] [place] [address] Social History Tobacco Use Types Packs/Day Years Used Date Smoking Tobacco: Never Assessed Sex and Gender Information Value Date Recorded Sex Assigned at Not on file Legal Sex Male 2:31 PM CDT Gender Identity Not on file Sexual Orientation Not on file documented as of this encounter Miscellaneous Notes * Cerner Conversion Note - Historical ProviderMD - 01/10/2019 9:24 AM BANK ANALYST Therapy Screen, OT Entered On: 01/10/2019 11:16 [...]
--- OUTSIDE RECORDS SUMMARY | 2024-10-15 10:23 | XMS_ITS | Encounter Summary ---
Author Organization [facility] Address [address] [place] [address] Care Team Providers Care Can Worker Name Role Phone Eric Maria MD Primary Care Provider Encounter Details Date Type Department Care Team ([facility] st Contact Info) Description 06/24/2024 Lab Requisition [facility] [address] [place] [address] Mirza Reyna MD [address] [facility] [address] [place] [id number] Encounter for general adult medical examination without [...] and Family Not on file 06/24/2024 Attends [employer] Not on file 06/24 Active Member [...] were you homeless or living in a intermediate (including now)? No 06/24/2024 Utilities Answer Date Recorded In the past 12 months has th e electric, gas, oil, or water [employer] threatened to shut off services in your [...] 10/24/2024 10:45 AM EDT Office Visit [facility] [address], [address] [place] [address] Jennifer Barber APRN, OMAR [address] [place] [phone] 11/21/2024 9:30 AM EDT Office Visit [facility] [address], 1st [place] [address] Chu Null MD [address] [facility] [address] [place] [address] 09/11/2025 10:00 AM EDT Ancillary Procedure [facility] [address], 2nd [place] [phone] 09/11/2025 11:00 AM EDT Office Visit [address] [place] [address] Jeff Longoria MD [address] [place] [address] documented as of this encounter Procedures Procedure Name Priority Date/Time Associated Diagnosis Comments MULTI DRUG RESISTANCE TEST Routine 06/24/2024 12:00 PM EDT Encounter for general adult medical examination without abnormal findings documented in this encounter Results * Multi Drug Resistance Test (06/24/2024 12:00 PM EDT) Culture No Multi Drug Resistant Organisms Isolated 06/25/2024 1:21 PM EDT [facility] Swab (Nares and Dhara Rectal) 06/24/2024 12:00 PM EDT 06/24/2024 2:24 PM EDT us Mirza Reyna MD LAB MICROBIOLOGY - GEN ERAL ORDERABLES Final Result [facility] [address] [place] [address] documented in this encounter Visit Diagnoses Diagnosis [...] documented as of this encounter Care Teams Can Worker Relationship Specialty Start Date End Date Eric Maria MD [address] [place] [address] PCP - General 11/04/20 documented as of this encounter
--- OUTSIDE RECORDS SUMMARY | 2024-10-15 10:23 | XMS_ITS | Encounter Summary ---
Author Organization [facility] Address [address] [place] [address] Care Team Providers Care Steeping Press Tender Name Role Phone Eric Maria MD [...] and Family Not on file 06/24/2024 Attends [employer] Services Not on file 06/24 Active Member [...] any time in the past 12 m [facility], were you homeless or living in a custodial (including now)? No 06/24/2024 Utilities Answer Date [...] Description 10/24/2024 10:45 AM EDT Office Visit [facility] [address], [address]nd [place] [address] Jennifer Barber APRN, DNP [address] [facility] [address] [place] [address] 11/21/2024 9:30 AM EDT Office Visit [facility] [address], [address] [place] [address] Chu Null MD [address] [place] [address] 09/11/2025 10:00 AM EDT Ancillary Procedure [facility] [address], [address]nd [place] [address] 09/11/2025 11:00 AM EDT Office Visit [place] [address], [address] [place] [address] Jeff Longoria MD [address] [place] [address] documented as of this encounter [...] documented as of this encounter Care Teams Steeping Press Tender Relationship Specialty Start Date End Date Eric Maria MD [address] [place] [address] PCP - General 11/04/20 documented as of this encounter
--- OUTSIDE RECORDS SUMMARY | 2024-10-15 10:23 | XMS_ITS | Encounter Summary ---
Author Organization [employer] ([place], [place], [place], [place]) Address [address] [place] [address] Care Team Providers Care Adding Machine Servicer Name Role Phone Unavailable Primary Care Provider Unavailabl e Encounter Details Date Type Department Care Team (Late st Contact Info) Description 01/10/2019 Transcribed Document [facility] Family Medicine [address] [place] [address] ProviderJose MD [address] [place] [address] Social History Tobacco Use Types Packs/Day Years Used Date Smoking Tobacco: Never Assessed Sex and Gender Information Value Date Recorded Sex Assigned at Not on file Legal Sex Male 2:31 PM CDT Gender Identity Not on file Sexual Orientation Not on file documented as of this encounter Miscellaneous Notes * Cerner Conversion Note - Historical ProviderMD - 01/10/2019 5:00 AM RAILROAD EMERGENCY SERVICES MANAGER Height and Weight, Routine Entered On: 01/10/2019 6:08 EST Performed On: 01/10/2019 5:00 EST by Mitesh Hanson Cna I Height and Weight, Routine Routine Weight Source : Standing scale Routine Weight Entry Format : Wallace Routine Weight, Pounds : 165 lb Routine Weight, Ounces : 8 oz Routine Weight Calculation : 75.23 kg Height Source : Stated Height Entry Format : Wallace Height, Feet : 5 ft Height, Inches : 9 Inch Clinical Height : 175.26 cm Body Surface Area (BSA), Routine : 1.91 m2 Body Mass Index (BMI), Routine : 24.49 kg/m2 Mitesh Hanson Cna I - 01/10/2019 6:08 EST Electronically signed by [facility] Conversion Dry Kiln Operator Cerner at 06/23/2022 12:05 PM CDT documented in this encounter Plan of Treatment Not on file documented as of this encounter Visit Diagnoses Not on filedocumented in this encounter
--- OUTSIDE RECORDS SUMMARY | 2024-10-15 10:23 | XMS_ITS | Encounter Summary ---
Author Organization [employer] ([place], [place], [place], [place]) Address [address] [place] [address] Care Team Providers Care Retail Special Event Associate Name Role Phone Unavailable Primary Care Provider Unavailmacario e Encounter Details Date Type Department Care Team (Late st Contact Info) Description 01/10/2019 Transcribed Document [facility] [place] [facility] [address] [place] [address] ProviderJose MD [address] [place], [place] [address] Social History Tobacco Use Types Packs/Day Years Used Date Smoking Tobacco: Never Assessed Sex and Gender Information Value Date Recorded Sex Assigned at Not on file Legal Sex Male 2:31 PM CDT Gender Identity Not on file Sexual Orientation Not on file documented as of this encounter Miscellaneous Notes * Cerner Conversion Note - Historical ProviderMD - 01/10/2019 2:00 AM LINUX SOLARIS ADMINISTRATOR Making Machine Operator Details Entered On: 01/10/2019 1:28 EST Performed [...]
--- OUTSIDE RECORDS SUMMARY | 2024-10-15 10:23 | XMS_ITS | Encounter Summary ---
Author Organization [facility] Address [address] [place] [address] Care Team Providers Care Archery Equipment Hay Sorter Name Role Phone Eric Maria MD Primary Care Provider [phone] Encounter Details Date Type Department Care Team (Late st Contact Info) Description 05/26/2024 Orders Only External Location [address] [place] [address] Provider, External Social History Tobacco Use Types [...] Description 10/24/2024 10:45 AM EDT [facility] [address], [address]nd [place] [address] Jennifer Barber, MANAGER OPERATING, DNP [address] [place] [address] 11/21/2024 9:30 AM EDT Office Visit [facility] [address], [address]st [place] [address] Chu Null MD [address] [place] [address] 09/11/2025 10:00 AM EDT Ancillary Procedure [facility] [address], [address] [place] [address] 09/11/2025 11:00 AM EDT Office Visit [place] [address], [address]nd [place] [address] Jeff Longoria MD [address] [place] [address] documented as of this encounter [...] documented as of this encounter Care Teams Archery Equipment Hay Sorter Relationship Specialty Start Date End Date Eric Maria MD [address] [place] [address] PCP - General 11/04/20 documented as of this encounter
--- OUTSIDE RECORDS SUMMARY | 2024-10-15 10:23 | XMS_ITS | Encounter Summary ---
Author Organization [facility] Address [address] [place] [address] Care Team Providers Care Greige Mender Name Role Phone Eric Maria MD Primary Care Provider [phone] Encounter Details Date Type Department Care Team (Late st Contact Info) Description 05/31/2024 Orders Only External Location [address] [place] [address] Provider, External Social History Tobacco Use Types [...] Description 10/24/2024 10:45 AM EDT Office Visit [place] [facility] [address], [address]nd [place] [address] Jennifer Barber, TAB MACHINE OPERATOR, DNP [address] [place] [address] 11/21/2024 9:30 AM EDT Office Visit [facility] [address], 1st [place] [address] Chu Null MD [address] [place] [address] 09/11/2025 10:00 AM EDT Ancillary Procedure [facility] [address], [address] [place] [address] 09/11/2025 11:00 AM EDT Office Visit [place] [address], [address] [place] [address] Jeff Longoria MD [address] [place] [address] documented as of this encounter [...] documented as of this encounter Care Teams Greige Mender Relationship Specialty Start Date End Date Eric Maria MD [address] [place] [address] PCP - General 11/04/20 documented as of this encounter
--- OUTSIDE RECORDS SUMMARY | 2024-10-15 10:23 | XMS_ITS | Encounter Summary ---
Author Organization [facility] Address [address] [place] [address] Care Team Providers Care Waiter/Waitress Tourist Class Name Role Phone Eric Maria MD Primary Care Provider [phone] Reason for Visit * Reason Comments Med Refill Encounter Details Date Type Department Care Team (Late st Contact Info) Description 09/13/2024 Refill [place] [facility] [address], [address]st [place] [address] Chris Stratton MBBS [address] [place] [address] Social History Tobacco Use Types Packs/Day Years [...] and Family Not on file 06/24/2024 Attends [employer] Not on file 06/24 Active Member [...] were you homeless or living in a longterm (including now)? No 06/24/2024 Utilities Answer Date Recorded In the past 12 months has th e electric, gas, oil, or water [employer] threatened to shut off services in your [...] Description 10/24/2024 10:45 AM EDT Office Visit [facility] Medicine Specialties [address], [address]nd [place] [address] Jennifer Barber APRN, OMAR [address] [place] [address] 11/21/2024 9:30 AM EDT Office Visit [facility] [address], [address]st [place] [address] Chu Null MD [address] [facility] [address] [place] [address] 09/11/2025 10:00 AM EDT Ancillary Procedure [facility] [address], [address]nd [place] [address] 09/11/2025 11:00 AM EDT Office Visit [facility] [address], [address]nd [place] [address] Jeff Longoria MD [address] [place] [address] documented as of this encounter Goals Goal [...] documented as of this encounter Care Teams Waiter/Waitress Tourist Class Relationship Specialty Start Date End Date Eric Maria MD [address] [place], [place] [address] [address] PCP - General 11/04/20 documented as of this encounter
--- OUTSIDE RECORDS SUMMARY | 2024-10-15 10:23 | XMS_ITS | Encounter Summary ---
Author Organization [employer] ([place], [place], [place], [place]) Address [address] [place] [address] Care Team Providers Care Ticket Puller Name Role Phone Unavailable Primary Care Provider Unavailabl e Encounter Details Date Type Department Care Team (Late st Contact Info) Description 01/11/2019 Transcribed Document [facility] Family Medicine [address] [place] [address] ProviderJose MD [address] [place], [place] [id number] Social History Tobacco Use Types Packs/Day Years Used Date Smoking Tobacco: Never Assessed Sex and Gender Information Value Date Recorded Sex Assigned at Not on file Legal Sex Male 2:31 PM CDT Gender Identity Not on file Sexual Orientation Not on file documented as of this encounter Miscellaneous Notes * Cerner Conversion Note - Jose Stokes MD - 01/11/2019 10:04 AM PREPARATION DEPARTMENT SUPERVISOR UM Authorization Entered On: 01/11/2019 10:05 EST Performed On: 01/11/2019 10:04 EST by COLBY FABIAN RN-Utilization Review Primary Insurance Authorization Authorization and Policy Numbers : Insurance 1 Health Plan: R Policy Number: [id number] Authorization Number: Insurance 2 Health Plan: MEDICARE Policy Number: [id number] Authorization Number: Insurance Primary Name : [facility] [id number] Authorization Status-Primary : Pending clinicals Authorization Fax Number-Primary : [phone] Auth/Referral Phone Number-Primary : [phone] Auth/Referral Contact Name-Primary : Loren Reference Number-Primary : [id number] Authorized Service Begin Date-Primary : 01/11/2019 EST Authorization Comments-Primary : rec'd call from Loren requesting clinicals be faxed to her [phone] fax [phone] Historical Authorization Comments-Primary : Comment 1: Auth initiated on [employer] portal. Awaiting call for clinicals. (KATHARINE MOREAU, Rn-Utilization Review 01/10/2019 10:02) COLBY FABIAN RN-Utilization Review - 01/11/2019 10:04 EST Electronically signed by [facility] Conversion [employer] Strategic Analysis Cerner at 06/23/2022 12:02 PM CDT documented in this encounter Plan of Treatment Not on file documented as of this encounter Visit Diagnoses Not on filedocumented in this encounter
--- OUTSIDE RECORDS SUMMARY | 2024-10-15 10:23 | XMS_ITS | Encounter Summary ---
Author Organization [facility] Address [address] [place] [address] Care Team Providers Care Egg Caser Name Role Phone Eric Maria MD Primary Care Provider Encounter Details Date Type Department Care Team (Late st Contact Info) Description 05/26/2024 Orders Only External Location [address] [place] [address] Provider, External Social History Tobacco Use Types [...] [facility] [address], [address] [place] [address] Jennifer Barber, TREATMENT MANAGER, DNP [address] [place] [address] 11/21/2024 9:30 AM EDT Office Visit [facility] [address], [address] [place] [address] Chu Null MD [address] [place] [address] 09/11/2025 10:00 AM EDT Ancillary Procedure [facility] Specialties [address], [address] [place] [address] 09/11/2025 11:00 AM EDT Office Visit [place] [address], [address] [place] [address] Jeff Longoria MD [address] [place] [address] documented as of this encounter [...] documented as of this encounter Care Teams Egg Caser Relationship Specialty Start Date End Date Eric Maria MD [address] [place] [address] PCP - General 11/04/20 documented as of this encounter
--- OUTSIDE RECORDS SUMMARY | 2024-10-15 10:23 | XMS_ITS | Encounter Summary ---
Author Organization [employer] ([place], [place], [place], [place]) Address [address] [place] [address] Care Team Providers Care Muck Hauler Name Role Phone Unavailable Primary Care Provider Unavailabl e Encounter Details Date Type Department Care Team (Late st Contact Info) Description 01/10/2019 Transcribed Document [facility] Family Medicine [address] [place] [address] ProviderJose MD [address] [place] [id number] Social History Tobacco Use Types Packs/Day Years Used Date Smoking Tobacco: Never Assessed Sex and Gender Information Value Date Recorded Sex Assigned at Not on file Legal Sex Male 2:31 PM CDT Gender Identity Not on file Sexual Orientation Not on file documented as of this encounter Miscellaneous Notes * Cerner Conversion Note - Jose Stokes MD - 01/10/2019 4:12 PM SAND CONDITIONER Patient: KINGSTON POLLOCK Age: 68 years Sex: Male : 1950 Associated Diagnoses: None Author: GERARDO RICHARDSON MD-CAR Postcardiac catheterization note: After I discuss the Finding and the findings of angioplasty and stenting with the family, the and the family members to told me that he had a prostate cancer, the CT scan done at [facility] suggested that he had metastatic disease and [...]
--- OUTSIDE RECORDS SUMMARY | 2024-10-15 10:23 | XMS_ITS | Encounter Summary ---
Author Organization [employer] ([place], [place], [place]) Address [address] [place] [address] Care Team Providers Care Cert Occupational Therapy Asst Name Role Phone Unavailable Primary Care Provider Unavailabl e Encounter Details Date Type Department Care Team (Late st Contact Info) Description 01/11/2019 Transcribed Document [facility] [address] [place] [address] ProviderJose MD [address] [place], [place] [id number] Social History Tobacco Use Types Packs/Day Years Used Date Smoking Tobacco: Never Assessed Sex and Gender Information Value Date Recorded Sex Assigned at Not on file Legal Sex Male 2:31 PM CDT Gender Identity Not on file Sexual Orientation Not on file documented as of this encounter Miscellaneous Notes * Cerner Conversion Note - Jose Stokes MD - 01/11/2019 11:00 AM LEAD MANUFACTURING ENGINEERING TECH UM Authorization Entered On: 01/11/2019 11:01 EST Performed On: 01/11/2019 11:00 EST by KATHARINE MOREAU Rn-Utilization Review Primary Insurance Authorization Authorization and Policy Numbers : Insurance 1 Health Plan: R Policy Number: [id number] Authorization Number: Insurance 2 Health Plan: MEDICARE Policy Number: [id number] Authorization Number: Insurance Primary Name : [facility] [id number] Authorization Status-Primary : Pending clinicals Authorization Fax Number-Primary : [phone] Auth/Referral Phone Number-Primary : [phone] Auth/Referral Contact Name-Primary : Loren Reference Number-Primary : [id number] Authorized Service Begin Date-Primary : 01/11/2019 EST Authorization Comments-Primary : Clinicals faxed via [employer] to [phone] Historical Authorization Comments-Primary : Comment 1: rec'd call from Loren requesting clinicals be faxed to her [phone] fax [phone] (COLBY FABIAN, RN-Utilization Review 01/11/2019 10:04) Comment 2: Auth initiated on R portal. Awaiting call for clinicals. (KATHARINE MOREAU, Michael-Utilization Review 01/10/2019 10:02) KATHARINE MOREAU Rn-Utilization Review - 01/11/2019 11:00 EST documented in this encounter Plan of Treatment Not on file documented as of this encounter Visit Diagnoses Not on filedocumented in this encounter
--- OUTSIDE RECORDS SUMMARY | 2024-10-15 10:23 | XMS_ITS | Referral Summary ---
Author Organization [employer] ([place], [place], [place]) Address [address] [place] [address] Care Team Providers Care Annual Giving Manager Name Role Phone Unavailable Primary Care [...]
--- OUTSIDE RECORDS SUMMARY | 2024-10-15 10:23 | XMS_ITS | Encounter Summary ---
Author Organization [facility] Address [address] [place] [address] Care Team Providers Care Clinical Laboratory Technologist Name Role Phone Eric Maria MD Primary Care Provider Encounter Details Date Type Department Care Team (Late st Contact Info) Description 05/25/2024 Orders Only External Location [address] [place] [address] Vicky Sapp MD [address] [place] [address] Social History Tobacco Use Types Packs/Day Years [...] Description 10/24/2024 10:45 AM EDT Office Visit [facility] [address], [address]nd [place] [address] Jennifer Barber, BULLARD OPERATOR, DNP [address] [place] [address] 11/21/2024 9:30 AM EDT Office Visit [facility] [address], [address] [place] [address] Chu Null MD [address] [facility] [address] [place] [address] 09/11/2025 10:00 AM EDT Ancillary Procedure [facility] Medicine Specialties [address], [address] [place] [address] 09/11/2025 11:00 AM EDT Office Visit [facility] [address], [address] [place] [address] Jeff Longoria MD [address] [place] [address] documented as of this encounter Procedures Procedure [...] documented as of this encounter Care Teams Clinical Laboratory Technologist Relationship Specialty Start Date End Date Eric Maria MD [address] [place] [address] PCP - General 11/04/20 documented as of this encounter
--- OUTSIDE RECORDS SUMMARY | 2024-10-15 10:23 | XMS_ITS | Encounter Summary ---
Author Organization [employer] ([place], [place], [place], [place]) Address [address] [place] [address] Care Team Providers Care Tiler Name Role Phone Unavailable Primary Care Provider Unavailabl e Encounter Details Date Type Department Care Team (Late st Contact Info) Description 01/11/2019 Transcribed Document [facility] [place] Medicine [address] [place] [address] ProviderJose MD [address] [place], [place] [address] Social History Tobacco Use Types Packs/Day Years Used Date Smoking Tobacco: Never Assessed Sex and Gender Information Value Date Recorded Sex Assigned at Not on file Legal Sex Male 2:31 PM CDT Gender Identity Not on file Sexual Orientation Not on file documented as of this encounter Miscellaneous Notes * Cerner Conversion Note - Historical ProviderMD - 01/11/2019 2:00 AM DIRECTOR OF BUSINESS OPERATIONS Sander Portable Machine Details Entered On: 01/11/2019 2:18 EST Performed [...]
--- OUTSIDE RECORDS SUMMARY | 2024-10-15 10:23 | XMS_ITS | Encounter Summary ---
Author Organization [employer] ([place], [place], [place], [place]) Address [address] [place] [address] Care Team Providers Care Rn Team Leader Name Role Phone Unavailable Primary Care Provider Unavailabl e Encounter Details Date Type Department Care Team (Late st Contact Info) Description 01/11/2019 Transcribed Document [facility] [place] [address] [place] [address] ProviderJose MD [address] [place], [place] [id number] Social History Tobacco Use Types Packs/Day Years Used Date Smoking Tobacco: Never Assessed Sex and Gender Information Value Date Recorded Sex Assigned at Not on file Legal Sex Male 2:31 PM CDT Gender Identity Not on file Sexual Orientation Not on file documented as of this encounter Miscellaneous Notes * Cerner Conversion Note - Historical ProviderMD - 01/11/2019 3:57 PM RN PEDIATRIC ICU Nursing Discharge Summary Entered On: 01/11/2019 15:58 EST Performed On: 01/11/2019 15:57 EST by Jailene Calvillo sheet metal operator Documentation Discharge Date/Time : 01/11/2019 15:50 EST [...] - 01/11/2019 15:57 EST Electronically signed by [facility] Conversion Panama Hat Hydraulic Press Operator Cerner at 06/23/2022 11:58 AM CDT documented in this encounter Plan of Treatment Not on file documented as of this encounter Visit Diagnoses Not on filedocumented in this encounter
--- OUTSIDE RECORDS SUMMARY | 2024-10-15 10:23 | XMS_ITS | Encounter Summary ---
Author Organization [employer] ([place], [place], [place], [place]) Address [address] [place] [address] Care Team Providers Care Sand Car Worker Name Role Phone Unavailable Primary Care Provider Unavailabl e Encounter Details Date Type Department Care Team (Late st Contact Info) Description 01/11/2019 Transcribed Document [facility] [place] Family Medicine [address] [place] [address] ProviderJose MD [address] [place] [address] Social History Tobacco Use Types Packs/Day Years Used Date Smoking Tobacco: Never Assessed Sex and Gender Information Value Date Recorded Sex Assigned at Not on file Legal Sex Male 2:31 PM CDT Gender Identity Not on file Sexual Orientation Not on file documented as of this encounter Miscellaneous Notes * Cerner Conversion Note - Historical ProviderMD - 01/11/2019 3:23 PM THERAPEUTIC STRATEGY LEAD Stroke/Warfarin Instructions Entered On: 01/11/2019 15:23 EST Performed On: 01/11/2019 15:23 EST by Adeline Vasquez RN Stroke/Warfarin Instructions Stroke/TIA Discharge Ins : N/A Warfarin Discharge Ins : N/A Adeline Vasquez RN - 01/11/2019 15:23 EST documented in this encounter Plan of Treatment Not on file documented as of this encounter Visit Diagnoses Not on filedocumented in this encounter
--- OUTSIDE RECORDS SUMMARY | 2024-10-15 10:23 | XMS_ITS | Encounter Summary ---
Author Organization [facility] [place] Address [address] [place] [address] Care Team Providers Care Supervisor Elementary Education Name Role Phone Eric Maria MD Primary Care Provider Encounter Details Date Type Department Care Team (Late st Contact Info) Description 05/25/2024 Orders Only External Location [address] [place] [address] Provider, External Social History Tobacco Use Types [...] Description 10/24/2024 10:45 AM EDT [facility] Visit [facility] [address] [place] [address] Jennifer Barber, METAL BONDER, DNP [address] [place] [phone] 11/21/2024 9:30 AM EDT Office Visit [facility] [address] [place] [address] Chu Null MD [address] [place] [address] 09/11/2025 10:00 AM EDT Ancillary Procedure [facility] Medicine Specialties [address] [place] [address] 09/11/2025 11:00 AM EDT Office Visit [facility] [address] [place] [address] Jeff Longoria MD [address] [place] [address] documented as of this encounter [...] documented as of this encounter Care Teams Supervisor Elementary Education Relationship Specialty Start Date End Date Eric Maria MD [address] [place] [id number] PCP - General 11/04/20 documented as of this encounter
--- OUTSIDE RECORDS SUMMARY | 2024-10-15 10:23 | XMS_ITS | Encounter Summary ---
Author Organization [employer] ([place], [place], [place], [place]) Address [address] [place] [address] Care Team Providers Care Senior Mechanical Engineer Name Role Phone Unavailable Primary Care Provider Unavailabl e Encounter Details Date Type Department Care Team (Late st Contact Info) Description 01/10/2019 Transcribed Document [facility] [place] Medicine [address] [place] [address] ProviderJose MD [address] [place] [address] Social History Tobacco Use Types Packs/Day Years Used Date Smoking Tobacco: Never Assessed Sex and Gender Information Value Date Recorded Sex Assigned at Not on file Legal Sex Male 2:31 PM CDT Gender Identity Not on file Sexual Orientation Not on file documented as of this encounter Miscellaneous Notes * Cerner Conversion Note - Historical ProviderMD - 01/10/2019 9:24 AM SOLUTIONS SPECIALIST Therapy Screen, PT Entered On: 01/10/2019 10:31 [...]
--- OUTSIDE RECORDS SUMMARY | 2024-10-15 10:23 | XMS_ITS | Encounter Summary ---
Author Organization [employer] ([place], [place], [place], [place]) Address [address] [place] [address] Care Team Providers Care Senior Search Marketing Analyst Name Role Phone Unavailable Primary Care Provider Unavailabl e Encounter Details Date Type Department Care Team (Late st Contact Info) Description 01/11/2019 Transcribed Document [facility] [place] [address] [place] [address] ProviderJose MD [address] [place] [address] Social History Tobacco Use Types Packs/Day Years Used Date Smoking Tobacco: Never Assessed Sex and Gender Information Value Date Recorded Sex Assigned at Not on file Legal Sex Male 2:31 PM CDT Gender Identity Not on file Sexual Orientation Not on file documented as of this encounter Miscellaneous Notes * Cerner Conversion Note - Jose Stokes MD - 01/11/2019 3:23 PM PLASTICS ENGINEERING TEACHER [place] [id number] [place] :1950 Visit Time:01/09/2019 Your Visit Summary Your Care Team Admitting Physician - GERARDO RICHARDSON MD-CAR Attending Physician - GERARDO RICHARDSON MD-CAR Primary Care Physician - YUMIOK, UNKNOWN Your Diagnosis NSTEMI (non-ST elevated myocardial [...] need ot follow up with pcp in [facility] for [facility] When Within 2 to 3 days Follow Up with GERARDO RICHARDSON When Within 2 weeks Comments Office to call with appoint/instructions cbc check for blood counts in 2 weeks Where: [facility] [address] [place] [phone] (1) Medications What How Much When Instructions Next Dose carvedilol (Coreg 3.125 mg oral tablet) 1 Tablet(s) Oral Two Times A Day [facility] clopidogrel (clopidogrel 75 mg oral tablet) 1 Tablet(s) Oral Every Day [facility] nitroglycerin (Nitrostat 0.4 mg sublingual tablet) 1 Tablet(s) SubLINgual Every 5 minutes as needed for as needed for chest pain [facility] rivaroxaban (Xarelto 20 mg oral tablet) 1 Tablet(s) Oral Interval Every 24 Hours valsartan (Diovan 40 mg oral tablet) 1 Tablet(s) Oral Every Day [facility] PRAVAstatin (Pravachol 80 mg oral tablet) 1 Tablet(s) Oral Every Day [facility] aspirin (aspirin 81 mg oral tablet) 1 Tablet(s) Oral Every Day [facility] glipiZIDE (glipiZIDE 10 mg oral tablet, extended release) 1 Tablet(s) Oral Twice a Day Before Meals insulin detemir (Levemir FlexPen 100 units/ mL subcutaneous solution) 30 Unit(s) SubCutaneous At Bedtime metformin (metformin 1000 mg oral tablet) 1 Tablet(s) Oral Two Times A Day hold until friday 01/12 [facility] [address] [place], [place] [id number] [phone] Take your medications faithfully. Do NOT skip [...] foods can I eat? Grains Breads, including Bruneian, white, chencho, wheat, raisin, rye, oatmeal, and Divehi. Tortillas that are neither fried nor made with lard or trans fat. Low-fat rolls, including hotdog and hamburger buns and Romanian muffins. Biscuits. Muffins. Waffles. Pancakes. Light popcorn. Whole-grain cereals. Flatbread. Keri toast. Pretzels. Breadsticks. Rusks. Low-fat snacks. Low-fat [...] cooking, baking, salads, and as spreads. Other Mclean powder. Coffee and tea. All seasonings and [...] cottage cheese. Whole-milk cheeses, including blue (bettye), Roberts Rajendra, Brie, Antelmo, Iranian, Havarti, Israeli, cheddar, Camembert, and [place]ert. Whole or 2% milk that is liquid, [...] that has suet, meat fat, or shortening. Mclean butter, hydrogenated oils, palm oil, coconut oil, [...] 08/21/2012 Document Revised: 07/28/2016 Document Reviewed: 08/14/2014 [employer] Patient Education ?? 2019 [employer] Radial Site Care Refer to this [...] 03/25/2011 Document Revised: 07/28/2016 Document Reviewed: 09/08/2014 [employer] Patient Education ?? 2019 [employer] Coronary Angiogram With Stent, Care After [...] and water are not available, use hand document imaging specialist. ? Change your dressing as told by [...] such as diabetes. General instructions ??? Take kjdi-lyp-gfvlwwu and prescription medicines only as told by [...] 09/09/2005 Document Revised: 11/17/2016 Document Reviewed: 11/17/2016 [employer] Patient Education ?? 2019 [employer] Non-ST Segment Elevation Heart Attack A [...] 09/19/2005 Document Revised: 05/14/2012 Document Reviewed: 01/28/2015 [employer] Patient Education ?? 2017 [employer]. pravastatin (PRAV a STAT in) Pravachol What [...] may report side effects to FDA at 6-693-LSB-3347. What other drugs will affect pravastatin? Using [...] may interact with pravastatin, including prescription and okkw-wqm-lgmzaak medicines, vitamins, and herbal products. Not all [...] to ensure that the information provided by [employer]. ('[employer]') is accurate, up-to-date, and complete, but no guarantee is made to that effect. Drug information contained herein may be time sensitive. [employer] information has been compiled for use by healthcare practitioners and consumers in the [place] and therefore [employer] does not warrant that uses outside of the [place] are appropriate, unless specifically indicated otherwise. [employer]'s drug information does not endorse drugs, diagnose patients or recommend therapy. [employer] drug information is an informational resource designed [...] effective or appropriate for any given patient. [employer] does not assume any responsibility for any aspect of healthcare administered with the aid of information [employer] provides. The information contained herein is not intended to cover all possible uses, directions, precautions, warnings, drug interactions, allergic reactions, or adverse effects. If you have questions about the drugs you are taking, check with your doctor, nurse or pharmacist. Copyright 8037-5246 [employer]. Version: 13.01. Revision Date: 10/21/2015. valsartan (hernan [...] disease; ?? if you are on a uvi-yjtn-embf; or ?? if you have ever had [...] may report side effects to FDA at 0-567-GIE-5880. What other drugs will affect valsartan? Tell [...] drugs may affect valsartan, including prescription and jzlo-lza-qrnrwrw medicines, vitamins, and herbal products. Not all [...] to ensure that the information provided by [employer]. ('[employer]') is accurate, up-to-date, and complete, but no guarantee is made to that effect. Drug information contained herein may be time sensitive. [employer] information has been compiled for use by healthcare practitioners and consumers in the [place] and therefore [employer] does not warrant that uses outside of the [place] are appropriate, unless specifically indicated otherwise. [employer] drug information does not endorse drugs, diagnose patients or recommend therapy. [employer] drug information is an informational resource designed [...] effective or appropriate for any given patient. [employer] does not assume any responsibility for any aspect of healthcare administered with the aid of information [employer] provides. The information contained herein is not intended to cover all possible uses, directions, precautions, warnings, drug interactions, allergic reactions, or adverse effects. If you have questions about the drugs you are taking, check with your doctor, nurse or pharmacist. Copyright 5104-0065 [employer]. Version: 17.02. Revision Date: 05/31/2018. aspirin (oral) [...] What is aspirin? Aspirin is a salicylate (fq-KTA-qf-ate). It works by reducing substances in the [...] may report side effects to FDA at 2-271-JPZ-8655. What other drugs will affect aspirin? Ask [...] drugs may affect aspirin, including prescription and mkue-beq-ydvxhax medicines, vitamins, and herbal products. Not all [...] to ensure that the information provided by [employer]. ('[employer]') is accurate, up-to-date, and complete, but no guarantee is made to that effect. Drug information contained herein may be time sensitive. [employer] information has been compiled for use by healthcare practitioners and consumers in the [place] and therefore [employer] does not warrant that uses outside of the [place] are appropriate, unless specifically indicated otherwise. [employer] drug information does not endorse drugs, diagnose patients or recommend therapy. [employer] drug information is an informational resource designed [...] effective or appropriate for any given patient. [facility] does not assume any responsibility for any aspect of healthcare administered with the aid of information [facility] provides. The information contained herein is not intended to cover all possible uses, directions, precautions, warnings, drug interactions, allergic reactions, or adverse effects. If you have questions about the drugs you are taking, check with your doctor, nurse or pharmacist. Copyright 3929-2641 [facility]. Version: 15.. Revision Date: 06/05/2017. clopidogrel (kloe [...] may report side effects to FDA at 9-864-JJJ-2792. What other drugs will affect clopidogrel? Certain other medicines may increase your risk of bleeding, including aspirin. Avoid taking aspirin unless your doctor tells you to. Tell your doctor about all your other medicines, especially: ?? any other medicines to treat or prevent blood clots; ?? a stomach acid shift superintendent such as omeprazole, Nexium, or Prilosec; ?? an antidepressant; ?? an opioid medication; ?? a blood thinner--warfarin, Coumadin, Jantoven; or ?? NSAIDs (nonsteroidal anti-inflammatory drugs)--ibuprofen (Advil, Motrin), naproxen (Aleve), celecoxib, diclofenac, indomethacin, meloxicam, and others. This list is not complete. Other drugs may affect clopidogrel, including prescription and ukqj-iwg-ddywosq medicines, vitamins, and herbal products. Not all [...] to ensure that the information provided by [employer]. ('[employer]') is accurate, up-to-date, and complete, but no guarantee is made to that effect. Drug information contained herein may be time sensitive. [employer] information has been compiled for use by healthcare practitioners and consumers in the [place] and therefore [employer] does not warrant that uses outside of the [place] are appropriate, unless specifically indicated otherwise. [employer] drug information does not endorse drugs, diagnose patients or recommend therapy. [employer] drug information is an informational resource designed [...] effective or appropriate for any given patient. [facility] does not assume any responsibility for any aspect of healthcare administered with the aid of information [facility] provides. The information contained herein is not intended to cover all possible uses, directions, precautions, warnings, drug interactions, allergic reactions, or adverse effects. If you have questions about the drugs you are taking, check with your doctor, nurse or pharmacist. Copyright 1785-5164 [employer]. Version: 15.. Revision Date: 12/25/2017. carvedilol (HEIDY [...] may report side effects to FDA at 7-904-IGY-6031. What other drugs will affect carvedilol? Sometimes it is not safe to use certain medications at the same time. Some drugs can affect your blood levels of other drugs you take, which may increase side effects or make the medications less effective. Other drugs may affect carvedilol, including prescription and uywn-hou-hjmkvra medicines, vitamins, and herbal products. Tell your [...]
--- OUTSIDE RECORDS SUMMARY | 2024-10-15 10:23 | XMS_ITS | Encounter Summary ---
Author Organization [facility] Address [address] [place] [address] Care Team Providers Care Corporate Trainer Name Role Phone Eric Maria MD Primary [...] and Family Not on file 06/24/2024 Attends Holiness Services Not on file 06/24 Active Member [...] time in the past 12 m [facility], were you homeless or living in a fdc (including now)? No 06/24/2024 Utilities Answer Date [...] Description 10/24/2024 10:45 AM EDT Office Visit [facility] Medicine Specialties [address], [address] [place] [address] Jennifer Barber APRN, DNP [address] [place] [address] 11/21/2024 9:30 AM EDT Office Visit [facility] [address], [address] [place] [address] Chu Null MD [address] [place] [address] 09/11/2025 10:00 AM EDT Ancillary Procedure [facility] [address] [place] [address] 09/11/2025 11:00 AM EDT Office Visit [facility] [address] [place] [address] Jeff Longoria MD [address] [place] [address] documented as of this encounter Goals Goal [...] documented as of this encounter Care Teams Corporate Trainer Relationship Specialty Start Date End Date Eric Maria MD [address] [place] [address] PCP - General 11/04/20 documented as of this encounter
--- OUTSIDE RECORDS SUMMARY | 2024-10-15 10:23 | XMS_ITS | Clinical Summary ---
Author Organization [employer] ([place], [place], [place], [place]) Address [address] [place] [address] Care Team Providers Care Steam Station Supervisor Name Role Phone Unavailable Primary Care Provider [...]
--- OUTSIDE RECORDS SUMMARY | 2024-10-15 10:23 | XMS_ITS | Encounter Summary ---
Author Organization [email or web address] ([place], [place], [place], [place]) Address [address] [place] [address] Care Team Providers Care Print Finisher Name Role Phone Unavailable Primary Care Provider Unavailabl e Encounter Details Date Type Department Care Team (Late st Contact Info) Description 01/11/2019 Transcribed Document [facility] [place] [address] [place] [address] ProviderJose MD [address] [place], [place] [id number] Social History Tobacco Use Types Packs/Day Years Used Date Smoking Tobacco: Never Assessed Sex and Gender Information Value Date Recorded Sex Assigned at Not on file Legal Sex Male 2:31 PM CDT Gender Identity Not on file Sexual Orientation Not on file documented as of this encounter Miscellaneous Notes * Cerner Conversion Note - Historical ProviderMD - 01/11/2019 5:00 AM COLLEGE INTERN Height and Weight, Routine Entered On: 01/11/2019 4:47 EST Performed On: 01/11/2019 5:00 EST by Aleida Philippe CNA Height and Weight, Routine Routine Weight Source : Standing scale Routine Weight Entry Format : Kleberg Routine Weight, Pounds : 162 lb Routine Weight, Ounces : 7 oz Routine Weight Calculation : 73.84 kg Height Source : Stated Height Entry Format : Kleberg Height, Feet : 5 ft Height, Inches : 9 Inch Clinical Height : 175.26 cm Body Surface Area (BSA), Routine : 1.89 m2 Body Mass Index (BMI), Routine : 24.04 kg/m2 Aleida hPilippe CNA - 01/11/2019 4:46 EST Electronically signed by [facility] Conversion Fashion Editor Cerner at 06/23/2022 11:52 AM CDT documented in this encounter Plan of Treatment Not on file documented as of this encounter Visit Diagnoses Not on filedocumented in this encounter
--- OUTSIDE RECORDS SUMMARY | 2024-10-15 10:23 | XMS_ITS | Encounter Summary ---
Author Organization [employer] ([place], [place], [place], [place]) Address [address] [place] [address] Care Team Providers Care Lawn And Garden Technician Name Role Phone Unavailable Primary Care Provider Unavailabl e Encounter Details Date Type Department Care Team (Late st Contact Info) Description 01/11/2019 Transcribed Document [facility] [place] Medicine [address] [place] [address] ProviderJose MD [address] [place] [address] Social History Tobacco Use Types Packs/Day Years Used Date Smoking Tobacco: Never Assessed Sex and Gender Information Value Date Recorded Sex Assigned at Not on file Legal Sex Male 2:31 PM CDT Gender Identity Not on file Sexual Orientation Not on file documented as of this encounter Miscellaneous Notes * Cerner Conversion Note - Jose ProviderMD - 01/11/2019 2:58 PM INSTALLATION HELPER Initial Discharge Planning Entered On: 01/11/2019 15:02 EST Performed On: 01/11/2019 14:58 EST by ADELAIDE QUIROZ, RN-Signal Wirer Initial Assessment I Previously Documented Living Environment : No qualifying data available. Living Situation : Home Patient Lives With : Spouse Is the Patient a Caregiver at Home? 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 : Yes Medical Durable Power of Mold Polisher Name : No Legal Guardian : No ADELAIDE QUIROZ, RN-Signal Wirer - 01/11/2019 14:58 EST Initial Assessment II Sensory and Motor Deficits : None Current Home Treatments and Equipment : None ADELAIDE QUIROZ, RN-Signal Wirer - 01/11/2019 14:58 EST Discharge Needs I Anticipated Discharge Date : 01/11/2019 EST Anticipated Discharge To, CM : Home independently, Home with family care Current Home Treatment/Equipment : Current Home Treatment/Equipment No qualifying data available. Post Acute/Home Treatments : None Documentation Status Complete : Yes ADELAIDE QUIROZ, RN-Signal Wirer - 01/11/2019 14:58 EST Discharge Needs II Professional Skilled Services : Professional Skilled Services No qualifying data available. Needs Assistance with Transportation : No Discharge Options Discussed with Patient : Discharge transportation, DME ADELAIDE QUIROZ, RN-Signal Wirer - 01/11/2019 14:58 EST Narrative Note Narrative Note : Prior to admission patient was independent in all areas. Patient has a pacemaker in place managed by Marco A Gavin in [place]. Patient has had an emotional time this admission as prior to this the patient was seen at the ER at a local place, the hospital in [place] and now here. During this time his tearfully shared with CM it was reported to them by [place] that an oncology consult would be needed due to findings on the CT scans. Home plan. ADELAIDE QUIROZ, RN-Signal Wirer - 01/11/2019 14:58 EST documented in this encounter Plan of Treatment Not on file documented as of this encounter Visit Diagnoses Not on filedocumented in this encounter
--- OUTSIDE RECORDS SUMMARY | 2024-10-15 10:24 | XMS_ITS | Encounter Summary ---
Author Organization [employer] ([place], [place], [place], [place]) Address [address] [place] [address] Care Team Providers Care Outpatient Services Director Name Role Phone Unavailable Primary Care Provider Unavailabl e Encounter Details Date Type Department Care Team (Late st Contact Info) Description 01/10/2019 Transcribed Document [facility] [place] [address] [place] [address] ProviderJose MD [address] [place] [address] Social History Tobacco Use Types Packs/Day Years Used Date Smoking Tobacco: Never Assessed Sex and Gender Information Value Date Recorded Sex Assigned at Not on file Legal Sex Male 2:31 PM CDT Gender Identity Not on file Sexual Orientation Not on file documented as of this encounter Miscellaneous Notes * Cerner Conversion Note - Historical ProviderMD - 01/10/2019 8:05 AM SUPERVISOR COMPUTER OPERATIONS Radiologist Chief Of Breast Imaging Details Entered On: 01/10/2019 8:05 EST Performed [...]
--- OUTSIDE RECORDS SUMMARY | 2024-10-15 10:24 | XMS_ITS | Encounter Summary ---
Author Organization [employer] ([place], [place], [place], [place]) Address [address] [place] [address] Care Team Providers Care Dock Guard Name Role Phone Unavailable Primary Care Provider Unavailabl e Encounter Details Date Type Department Care Team (Late st Contact Info) Description 01/09/2019 Transcribed Document [facility] [place] [address] [place] [address] ProviderJose MD [address], [place] [id number] Social History Tobacco Use Types Packs/Day Years Used Date Smoking Tobacco: Never Assessed Sex and Gender Information Value Date Recorded Sex Assigned at Not on file Legal Sex Male 2:31 PM CDT Gender Identity Not on file Sexual Orientation Not on file documented as of this encounter Miscellaneous Notes * Cerner Conversion Note - Jose Stokes MD - 01/09/2019 4:30 PM SELF PROPELLED DREDGE OPERATOR Patient: KINGSTON POLLOCK Age: 68 years Sex: [...] and he was diagnosed with non-ST elevation LA and transferred here. The patient also had [...] CVA - Cerebrovascular accident / SNOMED CT 119977739 / Confirmed Diabetes mellitus / SNOMED CT 460959221 / Confirmed Hyperlipidemia / SNOMED CT 78668221 / Confirmed Hypertension / SNOMED CT 00001540 / Confirmed, Active Problems (4) CVA - Cerebrovascular accident Diabetes mellitus Hyperlipidemia Hypertension Histories Past Medical History: No active or resolved past medical history items have been selected or recorded., As noted above Coronary artery disease never had a stent. Family History: No family history items have been selected or recorded., Patient does not know his family history Procedure history: Pacemaker ([id number]). Social History Social & Psychosocial Habits Alcohol [...] of motion, Normal strength. Integumentary: Warm, Dry, [place]. Neurologic: Alert, Oriented. Cognition and Speech: Oriented, [...] nephrotoxicity, possible need for emergent CABG/blood transfusion, LA, stroke or . I have discussed risks [...]
--- OUTSIDE RECORDS SUMMARY | 2024-10-15 10:24 | XMS_ITS | Encounter Summary ---
Author Organization [employer] ([place], [place], [place], [place]) Address [address] [place] [address] Care Team Providers Care Injection Operator Name Role Phone Unavailable Primary Care Provider Unavailabl e Encounter Details Date Type Department Care Team (Late st Contact Info) Description 01/09/2019 Transcribed Document [facility] [place] Medicine [address] [place] [address] ProviderJose MD [address] [place], [place] [id number] Social History Tobacco Use Types Packs/Day Years Used Date Smoking Tobacco: Never Assessed Sex and Gender Information Value Date Recorded Sex Assigned at Not on file Legal Sex Male 2:31 PM CDT Gender Identity Not on file Sexual Orientation Not on file documented as of this encounter Miscellaneous Notes * Cerner Conversion Note - Historical ProviderMD - 01/09/2019 4:39 PM ACCESS MANAGER Cardiac and Pulmonary Outpatient [facility] Entered On: 01/17/2019 13:47 EST Performed On: 01/09/2019 16:39 EST by ADELAIDE CHOI RN Cardiac and Pulmonary Outpatient [facility] Cardiac Outpatient Rehab Evaluation Comment : Order faxed to [facility] due to pts location. ADELAIDE CHOI RN - 01/17/2019 13:46 EST Electronically signed by Az [facility] Conversion Heavy Duty Mechanic Cerner at 06/23/2022 12:00 PM CDT documented in this encounter Plan of Treatment Not on file documented as of this encounter Visit Diagnoses Not on filedocumented in this encounter
--- OUTSIDE RECORDS SUMMARY | 2024-10-15 10:24 | XMS_ITS | Encounter Summary ---
Author Organization [employer] ([place], [place], [place], [place]) Address [address] [place] [address] Care Team Providers Care Retail Wireless Sales Representative Name Role Phone Unavailable Primary Care Provider Unavailabl e Encounter Details Date Type Department Care Team (Late st Contact Info) Description 01/10/2019 Transcribed Document [facility] [place] Family Medicine [address] [place] [address] ProviderJose MD [address] [place], [place] [id number] Social History Tobacco Use Types Packs/Day Years Used Date Smoking Tobacco: Never Assessed Sex and Gender Information Value Date Recorded Sex Assigned at Not on file Legal Sex Male 2:31 PM CDT Gender Identity Not on file Sexual Orientation Not on file documented as of this encounter Miscellaneous Notes * Cerner Conversion Note - Historical ProviderMD - 01/10/2019 11:[address] O[address] [facility] OT Charges Entered On: 01/10/2019 11:16 EST Performed On: 01/10/2019 11:16 EST by KIM GUZMAN OTR/Jamilah Loving OT Charges Screen For Range Conservationist : 1 KIM GUZMAN OTR/Jamilah - 01/10/2019 11:16 EST documented in this encounter Plan of Treatment Not on file documented as of this encounter Visit Diagnoses Not on filedocumented in this encounter
--- OUTSIDE RECORDS SUMMARY | 2024-10-15 10:24 | XMS_ITS | Encounter Summary ---
Author Organization [employer] ([place], [place], [place], [place]) Address [address] [place] [address] Care Team Providers Care Remelt Operator Name Role Phone Unavailable Primary Care Provider Unavailabl e Encounter Details Date Type Department Care Team (Late st Contact Info) Description 01/11/2019 Transcribed Document [facility] [place] Medicine [address] [place] [address] ProviderJose MD [address] [place] [address] Social History Tobacco Use Types Packs/Day Years Used Date Smoking Tobacco: Never Assessed Sex and Gender Information Value Date Recorded Sex Assigned at Not on file Legal Sex Male 2:31 PM CDT Gender Identity Not on file Sexual Orientation Not on file documented as of this encounter Miscellaneous Notes * Cerner Conversion Note - Historical ProviderMD - 01/11/2019 5:00 AM ALTERATION SPECIALIST Chart Check - Review Order Profile Entered On: 01/11/2019 5:12 EST Performed On: 01/11/2019 5:00 EST by Rowan Salcedo RN Chart Check Powerplans Initiated/Discontinued as Appropriate : Yes All Active Orders Reviewed : Yes Rowan Salcedo RN - 01/11/2019 5:12 EST Electronically signed by Az [facility] Conversion Cash Management Coordinator Cerner at 06/23/2022 12:05 PM CDT documented in this encounter Plan of Treatment Not on file documented as of this encounter Visit Diagnoses Not on filedocumented in this encounter
--- OUTSIDE RECORDS SUMMARY | 2024-10-15 10:24 | XMS_ITS | Encounter Summary ---
Author Organization [employer] ([place], [place], [place], [place]) Address [address] [place] [address] Care Team Providers Care Dampener Name Role Phone Unavailable Primary Care Provider Unavailabl e Encounter Details Date Type Department Care Team (Late st Contact Info) Description 01/09/2019 Transcribed Document [facility] [place] [address] [place] [address] ProviderJose MD [address] [place], [place] [address] Social History Tobacco Use Types Packs/Day Years Used Date Smoking Tobacco: Never Assessed Sex and Gender Information Value Date Recorded Sex Assigned at Not on file Legal Sex Male 2:31 PM CDT Gender Identity Not on file Sexual Orientation Not on file documented as of this encounter Miscellaneous Notes * Cerner Conversion Note - Jose ProviderMD - 01/09/2019 4:39 PM FOOD SERVICE WORKER Pain Assessment Entered On: 01/09/2019 21:12 EST [...]
--- OUTSIDE RECORDS SUMMARY | 2024-10-15 10:24 | XMS_ITS | Encounter Summary ---
Author Organization [employer] ([place], [place], [place], [place]) Address [address] [place] [address] Care Team Providers Care Tank Maker Wood Name Role Phone Unavailable Primary Care Provider Unavailabl e Encounter Details Date Type Department Care Team (Late st Contact Info) Description 01/09/2019 Transcribed Document [facility] [place] [address] [place] [address] ProviderJose MD [address] [place], [place] [address] Social History Tobacco Use Types Packs/Day Years Used Date Smoking Tobacco: Never Assessed Sex and Gender Information Value Date Recorded Sex Assigned at Not on file Legal Sex Male 2:31 PM CDT Gender Identity Not on file Sexual Orientation Not on file documented as of this encounter Miscellaneous Notes * Cerner Conversion Note - Historical ProviderMD - 01/09/2019 5:00 PM PETROLEUM REFINING EQUIPMENT OPERATOR Chart Check - Review Order Profile Entered On: 01/09/2019 21:12 EST Performed On: 01/09/2019 17:00 EST by Jailene Calvillo RN Chart Check Powerplans Initiated/Discontinued as Appropriate : Not applicable All Active Orders Reviewed : Yes Jailene Calvillo RN - 01/09/2019 21:12 EST Electronically signed by Az [facility] Conversion Rn Unit Manager Cerner at 06/23/2022 12:04 PM CDT documented in this encounter Plan of Treatment Not on file documented as of this encounter Visit Diagnoses Not on filedocumented in this encounter
--- OUTSIDE RECORDS SUMMARY | 2024-10-15 10:24 | XMS_ITS | Encounter Summary ---
Author Organization [employer] ([place], [place], [place], [place]) Address [address] [place] [address] Care Team Providers Care Equipment Application Specialist Name Role Phone Unavailable Primary Care Provider Unavailabl e Encounter Details Date Type Department Care Team (Late st Contact Info) Description 01/10/2019 Transcribed Document [facility] [place] [address] [place] [address] ProviderJose MD [address] [place], [place] [address] Social History Tobacco Use Types Packs/Day Years Used Date Smoking Tobacco: Never Assessed Sex and Gender Information Value Date Recorded Sex Assigned at Not on file Legal Sex Male 2:31 PM CDT Gender Identity Not on file Sexual Orientation Not on file documented as of this encounter Miscellaneous Notes * Cerner Conversion Note - Jose ProviderMD - 01/10/2019 10:02 AM ART CONSERVATOR UM Authorization Entered On: 01/10/2019 10:04 EST Performed On: 01/10/2019 10:02 EST by KATHARINE MOREAU Rn-Utilization Review Primary Insurance Authorization Authorization and Policy Numbers : Insurance 1 Health Plan: R Policy Number: [id number] Authorization Number: Insurance 2 Health Plan: MEDICARE Policy Number: [id number] Authorization Number: Insurance Primary Name : R Authorization Status-Primary : Pending clinicals Authorized Service Begin Date-Primary : 01/11/2019 EST Authorization Comments-Primary : Auth initiated on [facility] portal. Awaiting call for clinicals. Historical Authorization Comments-Primary : No Authorization Comments Found KATHARINE MOREAU Rn-Utilization Review - 01/10/2019 10:02 EST documented in this encounter Plan of Treatment Not on file documented as of this encounter Visit Diagnoses Not on filedocumented in this encounter
--- OUTSIDE RECORDS SUMMARY | 2024-10-15 10:24 | XMS_ITS | Encounter Summary ---
Author Organization [employer] ([place], [place], [place], [place]) Address [address] [place] [address] Care Team Providers Care Hotel Houseman Name Role Phone Unavailable Primary Care Provider Unavailabl e Encounter Details Date Type Department Care Team (Late st Contact Info) Description 01/10/2019 Transcribed Document [facility] [place] [address] [place] [address] ProviderJose MD [address] [place] [address] Social History Tobacco Use Types Packs/Day Years Used Date Smoking Tobacco: Never Assessed Sex and Gender Information Value Date Recorded Sex Assigned at Not on file Legal Sex Male 2:31 PM CDT Gender Identity Not on file Sexual Orientation Not on file documented as of this encounter Miscellaneous Notes * Cerner Conversion Note - Historical ProviderMD - 01/10/2019 7:02 AM BOOK AGENT Event Note Entered On: 01/10/2019 7:03 EST Performed On: 01/10/2019 7:02 EST by Analy Mckeon RN Event Note Event Date/Time : 03/05/2019 7:02 EST Description of Event : Heparin ptt drawn at 0551 not resulted at this time. Spoke to christine in the lab. Analy Mckeon RN - 01/10/2019 7:02 EST documented in this encounter Plan of Treatment Not on file documented as of this encounter Visit Diagnoses Not on filedocumented in this encounter
--- OUTSIDE RECORDS SUMMARY | 2024-10-15 10:24 | XMS_ITS | Encounter Summary ---
Author Organization [employer] ([place], [place], [place], [place]) Address [address] [place] [address] Care Team Providers Care Ep Tech Name Role Phone Unavailable Primary Care Provider Unavailabl e Encounter Details Date Type Department Care Team (Late st Contact Info) Description 01/09/2019 Transcribed Document [facility] [place] [address] [place] [address] ProviderJose MD [address] [place], [place] [id number] Social History Tobacco Use Types Packs/Day Years Used Date Smoking Tobacco: Never Assessed Sex and Gender Information Value Date Recorded Sex Assigned at Not on file Legal Sex Male 2:31 PM CDT Gender Identity Not on file Sexual Orientation Not on file documented as of this encounter Miscellaneous Notes * Cerner Conversion Note - Historical ProviderMD - 01/09/2019 6:30 PM YEAST STACKER Event Note Entered On: 01/09/2019 21:44 EST [...] 01/09/2019 21:42 EST Electronically signed by Az [facility] Conversion Baker Biscuit Cerner at 06/23/2022 12:03 PM CDT documented in this encounter Plan of Treatment Not on file documented as of this encounter Visit Diagnoses Not on filedocumented in this encounter
--- OUTSIDE RECORDS SUMMARY | 2024-10-15 10:24 | XMS_ITS | Encounter Summary ---
Author Organization [employer] ([place], [place], [place], [place]) Address [address] [place] [address] Care Team Providers Care Assembly Associate Name Role Phone Unavailable Primary Care Provider Unavailabl e Encounter Details Date Type Department Care Team (Late st Contact Info) Description 01/10/2019 Transcribed Document [facility] [place] Family Medicine [address] [place] [address] ProviderJose MD [address] [place], [place] [id number] Social History Tobacco Use Types Packs/Day Years Used Date Smoking Tobacco: Never Assessed Sex and Gender Information Value Date Recorded Sex Assigned at Not on file Legal Sex Male 2:31 PM CDT Gender Identity Not on file Sexual Orientation Not on file documented as of this encounter Miscellaneous Notes * Cerner Conversion Note - Historical ProviderMD - 01/10/2019 9:[address] [facility] PT Charges Entered On: 01/10/2019 [...]
--- OUTSIDE RECORDS SUMMARY | 2024-10-15 10:24 | XMS_ITS | Encounter Summary ---
Author Organization [employer] ([place], [place], [place], [place]) Address [address] [place] [address] Care Team Providers Care Dials Inspector Name Role Phone Unavailable Primary Care Provider Unavailabl e Encounter Details Date Type Department Care Team (Late st Contact Info) Description 01/11/2019 Transcribed Document [facility] [place] Family Medicine [address] [place] [address] ProviderJose MD [address] [id number] Social History Tobacco Use Types Packs/Day Years Used Date Smoking Tobacco: Never Assessed Sex and Gender Information Value Date Recorded Sex Assigned at Not on file Legal Sex Male 2:31 PM CDT Gender Identity Not on file Sexual Orientation Not on file documented as of this encounter Miscellaneous Notes * Cerner Conversion Note - Jose ProviderMD - 01/11/2019 11:48 AM BEAUTY SALES ADVISOR Patient: KINGSTON POLLOCK Age: 68 years Sex: [...] Pain (Mild 1-3) Xarelto: 20 mg, Oral, [id number] Zofran: 4 mg, IV Push, Q6H, PRN: [...] mg tab 20 mg 1 Tab, Oral, [id number] valsartan 40 mg tab 40 mg 1 [...] At risk for sleep apnea / IMO 82605524 / Confirmed Atrial fibrillation / SNOMED CT 49580564 / Confirmed Pacemaker / SNOMED CT 4424733235 / Confirmed CAD (coronary artery disease) / SNOMED CT 86973961 / Confirmed CVA - Cerebrovascular accident / SNOMED CT 688541120 / Confirmed Diabetes mellitus / SNOMED CT 229832875 / Confirmed Hyperlipidemia / SNOMED CT 75937458 / Confirmed Hyperlipidemia / SNOMED CT 96290183 / Confirmed Hypertension / SNOMED CT 58759614 / Confirmed Prostate CA / SNOMED CT 3883061705 / Confirmed, Active Problems (10) At risk [...] EST Height Source Stated Height Entry Format [place] Height/Length, GRENADIAN (ft) 5 ft Height/Length GRENADIAN 9 Inch CLINICALHEIGHT 175.26 cm Routine Weight Source Standing scale Routine Weight Entry Format [place] Routine Weight, Pounds 162 lb Routine Weight, Ounces 7 oz Routine Weight Calculation 73.84 kg Body Mass Index (BMI), Routine 24.04 kg/m2 Body Surface Area (BSA), Routine 1.89 m2 01/10/2019 5:00 EST Height Source Stated Height Entry Format [place] Height/Length, GRENADIAN (ft) 5 ft Height/Length GRENADIAN 9 Inch CLINICALHEIGHT 175.26 cm Routine Weight Source Standing scale Routine Weight Entry Format [place] Routine Weight, Pounds 165 lb Routine Weight, [...] Gastrointestinal: Normal bowel sounds. Integumentary: Warm, Dry, [place]. Results Review General results Today's results 01/11/2019 [...] planned for them to see oncology in [facility]. AMS changes -ct head no acute process. [...]
--- OUTSIDE RECORDS SUMMARY | 2024-10-15 10:24 | XMS_ITS | Encounter Summary ---
Author Organization [employer] ([place], [place], [place], [place]) Address [address] [place] [address] Care Team Providers Care Bankruptcy Law Specialist Name Role Phone Unavailable Primary Care Provider Unavailabl e Encounter Details Date Type Department Care Team (Late st Contact Info) Description 01/10/[address] [facility] [place] [facility] [place] [address] ProviderJose MD [address] [place] [address] Social History Tobacco Use Types Packs/Day Years Used Date Smoking Tobacco: Never Assessed Sex and Gender Information Value Date Recorded Sex Assigned at Not on file Legal Sex Male 2:31 PM CDT Gender Identity Not on file Sexual Orientation Not on file documented as of this encounter Miscellaneous Notes * Cerner Conversion Note - Jose Stokes MD - 01/10/2019 3:28 PM MICROBIOLOGY LAB ASSISTANT DATE OF SERVICE: 01/10/2019 PROCEDURES: 1. Left [...] PROCEDURE: The patient was brought to heart matlab developer where the right wrist was anesthetized with 1 cc lidocaine. A 6-Namibian artery sheath was placed. Landon catheter was [...] then question of ICD will be raised. /[id number] MD BLAISE Krishnan/TOM / BLAISE / MODL /[id number] Electronically signed by Shay Bernardo Conversion Drafter Heating And Ventilating Cerner at 06/23/2022 11:55 AM CDT documented in this encounter Plan of Treatment Not on file documented as of this encounter Visit Diagnoses Not on filedocumented in this encounter
--- OUTSIDE RECORDS SUMMARY | 2024-10-15 10:24 | XMS_ITS | Encounter Summary ---
Author Organization [employer] ([place], [place], [place], [place]) Address [address] [place] [address] Care Team Providers Care Forest Pathology Associate Professor Name Role Phone Unavailable Primary Care Provider Unavailabl e Encounter Details Date Type Department Care Team (Late st Contact Info) Description 01/09/2019 Transcribed Document [facility] [place] [address] [place] [address] ProviderJose MD [address] [place], [place] [id number] Social History Tobacco Use Types Packs/Day Years Used Date Smoking Tobacco: Never Assessed Sex and Gender Information Value Date Recorded Sex Assigned at Not on file Legal Sex Male 2:31 PM CDT Gender Identity Not on file Sexual Orientation Not on file documented as of this encounter Miscellaneous Notes * Cerner Conversion Note - Jose ProviderMD - 01/09/2019 4:39 PM COTTON MACHINE OPERATOR Pain Assessment Entered On: 01/11/2019 0:03 EST [...]
--- OUTSIDE RECORDS SUMMARY | 2024-10-15 10:24 | XMS_ITS | Encounter Summary ---
Author Organization [employer] ([place], [place], [place], [place]) Address [address] [place] [address] Care Team Providers Care Courier Driver Name Role Phone Unavailable Primary Care Provider Unavailabl e Encounter Details Date Type Department Care Team (Late st Contact Info) Description 01/10/2019 Transcribed Document [facility] [place] [address] [place] [address] ProviderJose MD [address] [place], [place] [id number] Social History Tobacco Use Types Packs/Day Years Used Date Smoking Tobacco: Never Assessed Sex and Gender Information Value Date Recorded Sex Assigned at Not on file Legal Sex Male 2:31 PM CDT Gender Identity Not on file Sexual Orientation Not on file documented as of this encounter Miscellaneous Notes * Cerner Conversion Note - Jose Stokes MD - 01/10/2019 9:38 PM HUMAN RESOURCES BENEFITS MANAGER Rapid Response Team Documentation Entered On: 01/10/2019 [...] change in location/level of care Rapid Response Courier Driver #1 : Shital Martins, RN Shital Martins, RN - 01/10/2019 21:38 EST Electronically signed by Az, [facility] Conversion Vegetable Cutter Cerner at 06/23/2022 11:55 AM CDT documented in this encounter Plan of Treatment Not on file documented as of this encounter Visit Diagnoses Not on filedocumented in this encounter
--- OUTSIDE RECORDS SUMMARY | 2024-10-15 10:24 | XMS_ITS | Encounter Summary ---
Author Organization [employer] ([place], [place], [place], [place]) Address [address] [place] [address] Care Team Providers Care Director Of Public Safety Name Role Phone Unavailable Primary Care Provider Unavailabl e Encounter Details Date Type Department Care Team (Late st Contact Info) Description 01/14/2019 Transcribed Document [facility] [place] Family Medicine [address] [place] [address] ProviderJose MD [address] [place] [address] Social History Tobacco Use Types Packs/Day Years Used Date Smoking Tobacco: Never Assessed Sex and Gender Information Value Date Recorded Sex Assigned at Not on file Legal Sex Male 2:31 PM CDT Gender Identity Not on file Sexual Orientation Not on file documented as of this encounter Miscellaneous Notes * Cerner Conversion Note - Jose Stokes MD - 01/14/2019 2:16 PM PATIENTS TRANSPORTER UM Authorization Entered On: 01/14/2019 14:17 EST Performed On: 01/14/2019 14:16 EST by COLBY FABIAN RN-Utilization Review Primary Insurance Authorization Authorization and Policy Numbers : Insurance 1 Health Plan: [facility] Policy Number: [id number] Authorization Number: Insurance 2 Health Plan: MEDICARE Policy Number: [id number] Authorization Number: Insurance Primary Name : [facility] [id number] Authorization Status-Primary : Pending clinicals Authorization Fax Number-Primary : [phone] Auth/Referral Phone Number-Primary : [phone] Auth/Referral Contact Name-Primary : Loren Reference Number-Primary : [id number] Authorization Number-Primary : [id number] Number of Days Authorized-Primary : 2 Day(s) Authorized Service Begin Date-Primary : 01/09/2019 EST Authorized Service End Date-Primary : 01/11/2019 EST Authorization Comments-Primary : Approved per loren Historical Authorization Comments-Primary : Comment 1: Clinicals faxed via [employer] to [phone] (KATHARINE MOREAU, Rn-Utilization Review 01/11/2019 11:00) Comment 2: rec'd call from Loren requesting clinicals be faxed to her [phone] fax [phone] (COLBY FABIAN RN-Utilization Review 01/11/2019 10:04) Comment 3: Auth initiated on [facility] portal. Awaiting call for clinicals. (KATHARINE MOREAU, Rn-Utilization Review 01/10/2019 10:02) COLBY FABIAN RN-Utilization Review - 01/14/2019 14:16 EST Electronically signed by Shay Bernardo Conversion Heating And Blending Supervisor Cerner at 06/23/2022 11:58 AM CDT documented in this encounter Plan of Treatment Not on file documented as of this encounter Visit Diagnoses Not on filedocumented in this encounter
--- OUTSIDE RECORDS SUMMARY | 2024-10-15 10:24 | XMS_ITS | Encounter Summary ---
Author Organization [employer] ([place], [place], [place], [place]) Address [address] [place] [address] Care Team Providers Care Field Administrator Name Role Phone Unavailable Primary Care Provider Unavailabl e Encounter Details Date Type Department Care Team (Late st Contact Info) Description 01/09/2019 Transcribed Document [facility] [place] Family Medicine [address] [place] [address] ProviderJose MD [address] [id number] Social History Tobacco Use Types Packs/Day Years Used Date Smoking Tobacco: Never Assessed Sex and Gender Information Value Date Recorded Sex Assigned at Not on file Legal Sex Male 2:31 PM CDT Gender Identity Not on file Sexual Orientation Not on file documented as of this encounter Miscellaneous Notes * [employer] Conversion Note - Historical ProviderMD - 01/09/2019 4:03 PM WHEELCHAIR VAN OPERATOR FIRST RESPONDER Admission History, Adult Entered On: 01/09/2019 16:47 EST Performed On: 01/09/2019 16:03 EST by Jailene Calvillo RN Advance Directive Patient has Advance Directive *Q : No, patient refuses Advance Directive information Jailene Calvillo RN - 01/09/2019 19:02 EST Anesthesia/Transfusion [...] Nas Support Person/Pt Rep Contact Information : [phone] Want Family/Rep/Phys Notified of Admit : No Emergency Contact #1 : Noemi Pollock Emergency Contact #1 Emergency Contact #1 Relationship : spouse Emergency Contact #2 : Minal Bernardo Emergency Contact #2 Emergency Contact #2 Relationship : daughter Primary Language : Croatian Preferred Communication Mode : Verbal Communication Barrier [...] Scale Risk Level : 0-24 Low Risk Billings Fall Interventions : Adequate lighting, Assistive devices [...] Source : Stated Height Entry Format : Couch Height, Feet : 5 ft(Converted to: 152 cm, 60 Inch) Height, Inches : 9 Inch(Converted to: 0 ft 9 Inch, 22.86 cm) Clinical Height : 175.26 cm Body Surface Area (BSA) : 1.92 m2 Body Mass Index : 24.9 kg/m2 (HI) Rebecca Body Weight : 70 kg Jailene Calvillo RN - 01/09/2019 19:02 EST Weight Source : Standing scale Weight Entry Format : Couch Clinical Dosing Weight : 76.53 kg Weight, [...]
--- OUTSIDE RECORDS SUMMARY | 2024-10-15 10:24 | XMS_ITS | Encounter Summary ---
Author Organization [employer] ([place], [place], [place], [place]) Address [address] [place] [address] Care Team Providers Care Water Meter Installer Name Role Phone Unavailable Primary Care Provider Unavailabl e Encounter Details Date Type Department Care Team (Late st Contact Info) Description 01/09/2019 Transcribed Document [facility] [place] [address] [place] [address] ProviderJose MD [address] [place], [place] [id number] Social History Tobacco Use Types Packs/Day Years Used Date Smoking Tobacco: Never Assessed Sex and Gender Information Value Date Recorded Sex Assigned at Not on file Legal Sex Male 2:31 PM CDT Gender Identity Not on file Sexual Orientation Not on file documented as of this encounter Miscellaneous Notes * [employer] Conversion Note - Historical ProviderMD - 01/09/2019 4:39 PM WATER RESOURCE PROJECT MANAGER Education-Cardiac Topics Entered On: 01/09/2019 21:13 EST Performed On: 01/09/2019 16:39 EST by Jailene Calvillo RN Teaching/Learning Assessment Barriers To Learning : None evident Individuals Taught : Patient, Spouse Readiness to Learn : Uninterested Jailene Calvillo RN - 01/09/2019 21:13 EST Electronically signed by [facility] Conversion State Historical Society Director Steve at 06/23/2022 11:59 AM CDT documented in this encounter Plan of Treatment Not on file documented as of this encounter Visit Diagnoses Not on filedocumented in this encounter
--- OUTSIDE RECORDS SUMMARY | 2024-10-15 10:24 | XMS_ITS | Encounter Summary ---
Author Organization [employer] ([place], [place], [place], [place]) Address [address] [place] [address] Care Team Providers Care Optical Technician Name Role Phone Unavailable Primary Care Provider Unavailabl e Encounter Details Date Type Department Care Team (Late st Contact Info) Description 01/09/2019 Transcribed Document [facility] [place] Family Medicine [address] [place] [address] ProviderJose MD [address] [place] [address] Social History Tobacco Use Types Packs/Day Years Used Date Smoking Tobacco: Never Assessed Sex and Gender Information Value Date Recorded Sex Assigned at Not on file Legal Sex Male 2:31 PM CDT Gender Identity Not on file Sexual Orientation Not on file documented as of this encounter Miscellaneous Notes * [employer]ner Conversion Note - Jose ProviderMD - 01/09/2019 4:39 PM BOXING TRAINER Nutrition Assessment Entered On: 01/10/2019 11:30 EST [...] pain, non-STEMI PMH: CAD, questionable hx of [place], HTN, DM type 2, hypercholesterolemia, CVA Meds: [...]
--- OUTSIDE RECORDS SUMMARY | 2024-10-15 10:24 | XMS_ITS | Encounter Summary ---
Author Organization [employer] ([place], [place], [place], [place]) Address [address] [place] [address] Care Team Providers Care Pharmacist In Charge Name Role Phone Unavailable Primary Care Provider Unavailabl e Encounter Details Date Type Department Care Team (Late st Contact Info) Description 01/11/2019 Transcribed Document [facility] [place] Family Medicine [address] [place] [address] ProviderJose MD [address] [place], [place] [phone] Social History Tobacco Use Types Packs/Day Years Used Date Smoking Tobacco: Never Assessed Sex and Gender Information Value Date Recorded Sex Assigned at Not on file Legal Sex Male 2:31 PM CDT Gender Identity Not on file Sexual Orientation Not on file documented as of this encounter Miscellaneous Notes * [employer]ner Conversion Note - Jose Stokes MD - 01/11/2019 3:23 PM COMMUNICATION INSTRUCTOR Patient Education Materials Follows: Heart-Healthy Eating Plan [...] foods can I eat? Grains Breads, including Romansh, white, chencho, wheat, raisin, rye, oatmeal, and Austrian. Tortillas that are neither fried nor made with lard or trans fat. Low-fat rolls, including hotdog and hamburger buns and Chadian muffins. Biscuits. Muffins. Waffles. Pancakes. Light popcorn. [...] cooking, baking, salads, and as spreads. Other Philo powder. Coffee and tea. All seasonings and [...] cottage cheese. Whole-milk cheeses, including blue (bettye), [place] Rajendra, Brie, Antelmo, Uzbek, Havarti, Palauan, cheddar, Camembert, and [place]. Whole or 2% milk that is liquid, [...] that has suet, meat fat, or shortening. Philo butter, hydrogenated oils, palm oil, coconut oil, [...] 08/21/2012 Document Revised: 07/28/2016 Document Reviewed: 08/14/2014 [employer] Interactive Patient Education ? 2019 [employer]. Radial Site Care Refer to this sheet [...] 03/25/2011 Document Revised: 07/28/2016 Document Reviewed: 09/08/2014 ElseAG[employer]P Interactive Patient Education ? 2019 Else[employer] Inc. [...] and water are not available, use hand die tester. ? Change your dressing as told by [...] such as diabetes. General instructions ??? Take [id number] and prescription medicines only as told by [...] 09/09/2005 Document Revised: 11/17/2016 Document Reviewed: 11/17/2016 [employer] Interactive Patient Education ? 2019 [employer] Non-ST Segment Elevation Heart Attack A [...] 01/28/2015 Elsevier Interactive Patient Education ? 2017 [employer] documented in this encounter Plan of Treatment Not on file documented as of this encounter Visit Diagnoses Not on filedocumented in this encounter
--- OUTSIDE RECORDS SUMMARY | 2024-10-15 10:24 | XMS_ITS | Encounter Summary ---
Author Organization [employer] ([place], [place], [place], [place]) Address [address] [place] [address] Care Team Providers Care Analytics Intern Name Role Phone Unavailable Primary Care Provider Unavailabl e Encounter Details Date Type Department Care Team (Late st Contact Info) Description 01/10/2019 Transcribed Document [facility] [place] Family Medicine [address] [place] [address] ProviderJose MD [address] [place] [address] Social History Tobacco Use Types Packs/Day Years Used Date Smoking Tobacco: Never Assessed Sex and Gender Information Value Date Recorded Sex Assigned at Not on file Legal Sex Male 2:31 PM CDT Gender Identity Not on file Sexual Orientation Not on file documented as of this encounter Miscellaneous Notes * [employer]ner Conversion Note - Historical ProviderMD - 01/10/2019 5:00 AM TUBER HELPER Chart Check - Review Order Profile Entered On: 01/10/2019 4:47 EST Performed On: 01/10/2019 5:00 EST by Analy Mckeon RN Chart Check Powerplans Initiated/Discontinued as Appropriate : Yes All Active Orders Reviewed : Yes Analy Mckeon RN - 01/10/2019 4:47 EST Electronically signed by [facility] Conversion Diabetes Manager Cerner at 06/23/2022 11:53 AM CDT documented in this encounter Plan of Treatment Not on file documented as of this encounter Visit Diagnoses Not on filedocumented in this encounter
--- NOTE | 2024-10-15 10:38 | XR_ITS ---
FINAL REPORT CLINICAL HISTORY: pleural effusion, sarcoidosis fluid build up x 1 week drained it 2 days ago f/u pacemaker last year COMPARISON: 10/08/2024 FINDINGS: PA and lateral views of the chest were obtained. Left-sided AICD is unchanged. There is fullness of the rj bilaterally, mild lymphadenopathy not excluded in a patient with sarcoidosis. The cardiac and mediastinal silhouettes are within normal limits. The lungs are clear. There is no pleural effusion or pneumothorax. No acute osseous abnormality is identified. IMPRESSION: Fullness in the rj bilaterally, mild lymphadenopathy not excluded in patient with sarcoidosis. No focal infiltrate. Reviewed, Interpreted and Dictated by Mhiaela Penny MD Transcribed by Marylou Salazar Authenticated and [facility]
[2024-10-15 10:54] LABS: Hematocrit 35.3 % (42.0-52.0); Hemoglobin 10.2 g/dL (14.1-18.0); Immature Granulocytes % 0.4 %; Mean Corpuscular HGB Conc 28.9 g/dL (31.8-35.4); Mean Corpuscular Hemoglobin 24.0 pg (27.0-31.2); Mean Corpuscular Volume 83.1 fl (80-94); Nucleated Red Blood Cells % 0 %; Platelet Count 167 K/mm3 (142-424); Red Blood Count 4.25 M/mm3 (4.60-6.20); Red Cell Distribution Width-SD 51.0 fL; White Blood Count 5.4 K/mm3 (4.8-10.8)
[2024-10-15 11:32] LABS: Chloride 97 mmol/L (98-107)
[2024-10-15 11:33] LABS: Albumin Level 4.4 g/dl (3.5-5.0); Free T4 (Free Thyroxine) 1.31 ng/dl (0.78-2.19); Potassium 3.4 mmoL/L (3.5-5.1); Sodium 137 mmol/L (136-145)
[2024-10-15 11:35] LABS: Alanine Aminotransferase 9 U/L (12-78); Anion Gap 14.4 mEq/L (5-15); Aspartate Amino Transferase 20 U/L (17-59); Bilirubin,Unconjugated 0.2 mg/dL (0.0-1.1); Blood Urea Nitrogen 15 mg/dl (9-20); Carbon Dioxide 29 mmol/L (22.0-30.0); Creatinine,Serum 1.10 mg/dl (0.66-1.25); Estimated Glomerular Filt Rate 65 ml/min (>60); GFR (African American) 79 ML/MIN (>60)
[2024-10-15 11:36] LABS: Alkaline Phosphatase 139 U/L (38-126); Bilirubin,Direct 0.3 mg/dl (0.0-0.4); Bilirubin,Indirect 0.3 mg/dL (0.0-0.9); Bilirubin,Total 0.6 mg/dl (0.2-1.3); Calcium 9.5 mg/dl (8.4-10.2); Cholesterol 176 mg/dl (140-200); Glucose 285 mg/dl (74-100); HDL Cholesterol 45 mg/dl (40-60); Magnesium 1.9 mg/dl (1.6-2.3); Total Protein,Serum 7.1 g/dl (6.3-8.2); Triglycerides 151 mg/dl (30-150)
[2024-10-15 11:45] LABS: NT Pro Brain Natriuretic Pep. 1090 pg/mL (0-450)
[2024-10-15 12:07] LABS: Thyroid Stimulating Hormone 1.21 uIU/mL (0.465-4.68)
== END 2024-10-15 23:59 | disposition home or self-care (01) ==
LOC: LAB 10:16
PROVIDERS: PCP Family Medicine; Visit Provider Nurse Practitioner
DX: I25.10 Atherosclerotic heart disease of native coronary artery without angina pectoris (principal); J90 Pleural effusion, not elsewhere classified; D86.9 Sarcoidosis, unspecified; D61.818 Other pancytopenia; I11.0 Hypertensive heart disease with heart failure; I50.33 Acute on chronic diastolic (congestive) heart failure; R91.8 Other nonspecific abnormal finding of lung field; Z95.0 Presence of cardiac pacemaker
CPT/HCPCS: 36415; 71046; 80048; 80061; 80076; 83735; 83880; 84439; 84443; 85025

== ENCOUNTER 2024-10-17 12:00 | Outpatient (CLI) | payer MEDICARE, MEDICAID, SELFPAY ==
--- OUTSIDE RECORDS SUMMARY | 2024-10-17 12:02 | XMS_ITS | Encounter Summary ---
Author Organization [employer] ([place], [place], [place], [place]) Address [address] [place] [address] Care Team Providers Care Tuckpointer Name Role Phone Unavailable Primary Care Provider Unavailabl e Encounter Details Date Type Department Care Team (Late st Contact Info) Description 01/09/2019 Transcribed Document [facility] [place] Family Medicine [address] [place] [address] ProviderJose MD [address] [place], [place] [phone] Social History Tobacco Use Types Packs/Day Years Used Date Smoking Tobacco: Never Assessed Sex and Gender Information Value Date Recorded Sex Assigned at Not on file Legal Sex Male 2:31 PM CDT Gender Identity Not on file Sexual Orientation Not on file documented as of this encounter Miscellaneous Notes * [employer]ner Conversion Note - Jose ProviderMD - 01/09/2019 4:39 PM NEWSPAPER PRESS OPERATOR APPRENTICE Pain Assessment Entered On: 01/11/2019 0:03 EST [...]
--- OUTSIDE RECORDS SUMMARY | 2024-10-17 12:02 | XMS_ITS | Encounter Summary ---
Author Organization [employer] ([place], [place], [place], [place]) Address [address] [place] [address] Care Team Providers Care Mural Painter Name Role Phone Unavailable Primary Care Provider Unavailabl e Encounter Details Date Type Department Care Team (Late st Contact Info) Description 01/10/2019 Transcribed Document [facility] Family Medicine [address] [place] [address] ProviderJose MD [address] [place], [place] [phone] Social History Tobacco Use Types Packs/Day Years Used Date Smoking Tobacco: Never Assessed Sex and Gender Information Value Date Recorded Sex Assigned at Not on file Legal Sex Male 2:31 PM CDT Gender Identity Not on file Sexual Orientation Not on file documented as of this encounter Miscellaneous Notes * Cerner Conversion Note - Jose Stokes MD - 01/10/2019 9:38 PM LAB RN Rapid Response Team Documentation Entered On: 01/10/2019 [...] change in location/level of care Rapid Response Mural Painter #1 : Shital Martins, RN Shital Martins, RN - 01/10/2019 21:38 EST Electronically signed by Az, [facility] Conversion Digital Publishing Specialist Cerner at 06/23/2022 11:55 AM CDT documented in this encounter Plan of Treatment Not on file documented as of this encounter Visit Diagnoses Not on filedocumented in this encounter
--- OUTSIDE RECORDS SUMMARY | 2024-10-17 12:02 | XMS_ITS | Encounter Summary ---
Author Organization [employer] ([place], [place], [place], [place]) Address [address] [place] [address] Care Team Providers Care Thaw Shed Heater Tender Name Role Phone Unavailable Primary Care Provider Unavailabl e Encounter Details Date Type Department Care Team (Late st Contact Info) Description 01/09/2019 Transcribed Document [facility] [place] [address] [place] [address] ProviderJose MD [address] [place], [place] [phone] Social History Tobacco Use Types Packs/Day Years Used Date Smoking Tobacco: Never Assessed Sex and Gender Information Value Date Recorded Sex Assigned at Not on file Legal Sex Male 2:31 PM CDT Gender Identity Not on file Sexual Orientation Not on file documented as of this encounter Miscellaneous Notes * [employer] Conversion Note - Historical ProviderMD - 01/09/2019 6:30 PM FITNESS TEACHER Event Note Entered On: 01/09/2019 21:44 EST [...] Jailene Calvillo RN - 01/09/2019 21:42 EST documented in this encounter Plan of Treatment Not on file documented as of this encounter Visit Diagnoses Not on filedocumented in this encounter
--- OUTSIDE RECORDS SUMMARY | 2024-10-17 12:02 | XMS_ITS | Encounter Summary ---
Author Organization [employer] ([place], [place], [place], [place]) Address [address] [place] [address] Care Team Providers Care Shopper Name Role Phone Unavailable Primary Care Provider Unavailabl e Encounter Details Date Type Department Care Team (Late st Contact Info) Description 01/11/2019 Transcribed Document [facility] [place] [address] [place] [address] ProviderJose MD [address] [place] [address] Social History Tobacco Use Types Packs/Day Years Used Date Smoking Tobacco: Never Assessed Sex and Gender Information Value Date Recorded Sex Assigned at Not on file Legal Sex Male 2:31 PM CDT Gender Identity Not on file Sexual Orientation Not on file documented as of this encounter Miscellaneous Notes * Cerner Conversion Note - Jose Stokes MD - 01/11/2019 3:23 PM INSTRUCTIONAL TECHNOLOGIST [place] [id number] KINGSTON POLLOCK :1950 Visit Time:01/09/2019 Your Visit [...] need ot follow up with pcp in [facility] for prostate canacer gulshan When Within 2 to 3 days Follow Up with GERARDO RICHARDSON When Within 2 weeks Comments Office to call with appoint/instructions cbc check for blood counts in 2 weeks Where: [facility] [address] [place] [phone] (1) Medications What How Much When Instructions Next Dose carvedilol (Coreg 3.125 mg oral tablet) 1 Tablet(s) Oral Two Times A Day [facility] clopidogrel (clopidogrel 75 mg oral tablet) 1 Tablet(s) Oral Every Day [facility] nitroglycerin (Nitrostat 0.4 mg sublingual tablet) 1 Tablet(s) SubLINgual Every 5 minutes as needed for as needed for chest pain [facility] rivaroxaban (Xarelto 20 mg oral tablet) 1 Tablet(s) Oral Interval Every 24 Hours valsartan (Diovan 40 mg oral tablet) 1 Tablet(s) Oral Every Day [facility] PRAVAstatin (Pravachol 80 mg oral tablet) 1 Tablet(s) Oral Every Day [facility] aspirin (aspirin 81 mg oral tablet) 1 Tablet(s) Oral Every Day [facility] glipiZIDE (glipiZIDE 10 mg oral tablet, extended release) 1 Tablet(s) Oral Twice a Day Before Meals insulin detemir (Levemir FlexPen 100 units/ mL subcutaneous solution) 30 Unit(s) SubCutaneous At Bedtime metformin (metformin 1000 mg oral tablet) 1 Tablet(s) Oral Two Times A Day hold until friday 01/12 [facility] Information [facility] [address] [place], [place] [id number] [phone] Take your medications faithfully. Do NOT skip [...] white, chencho, wheat, raisin, rye, oatmeal, and Yoruba. Tortillas that are neither fried nor made with lard or trans fat. Low-fat rolls, including hotdog and hamburger buns and Telugu muffins. Biscuits. Muffins. Waffles. Pancakes. Light popcorn. [...] cooking, baking, salads, and as spreads. Other Foristell powder. Coffee and tea. All seasonings and [...] cottage cheese. Whole-milk cheeses, including blue (bettye), Sweet Grass Rajendra, Brie, Antelmo, Angolan, Havarti, Yemeni, cheddar, Camembert, and Mitchells. Whole or 2% milk that is liquid, [...] that has suet, meat fat, or shortening. Foristell butter, hydrogenated oils, palm oil, coconut oil, [...] 08/21/2012 Document Revised: 07/28/2016 Document Reviewed: 08/14/2014 [employer] Patient Education ?? 2019 [employer] Radial Site Care Refer to this [...] 03/25/2011 Document Revised: 07/28/2016 Document Reviewed: 09/08/2014 [employer] Patient Education ?? 2019 [employer] Coronary Angiogram With Stent, Care After [...] and water are not available, use hand film replacement orderer. ? Change your dressing as told by [...] such as diabetes. General instructions ??? Take ymqz-uca-akonsqc and prescription medicines only as told by [...] 09/09/2005 Document Revised: 11/17/2016 Document Reviewed: 11/17/2016 [employer] Patient Education ?? 2019 [employer] Non-ST Segment Elevation Heart Attack A [...] 09/19/2005 Document Revised: 05/14/2012 Document Reviewed: 01/28/2015 [employer] Patient Education ?? 2017 [employer]. pravastatin (PRAV a STAT in) Pravachol What [...] may report side effects to FDA at 9-089-INZ-5956. What other drugs will affect pravastatin? Using [...] may interact with pravastatin, including prescription and qjeo-acg-vxmueap medicines, vitamins, and herbal products. Not all [...] to ensure that the information provided by [employer]. ('Syscor[employer]') is accurate, up-to-date, and complete, but no guarantee is made to that effect. Drug information contained herein may be time sensitive. [employer] information has been compiled for use by healthcare practitioners and consumers in the [place] and therefore [employer] does not warrant that uses outside of the [place] are appropriate, unless specifically indicated otherwise. [employer]'s drug information does not endorse drugs, diagnose patients or recommend therapy. [employer] drug information is an informational resource designed [...] effective or appropriate for any given patient. [employer] does not assume any responsibility for any aspect of healthcare administered with the aid of information [employer] provides. The information contained herein is not intended to cover all possible uses, directions, precautions, warnings, drug interactions, allergic reactions, or adverse effects. If you have questions about the drugs you are taking, check with your doctor, nurse or pharmacist. Copyright 0145-1219 [employer]. Version: 13.01. Revision Date: 10/21/2015. valsartan (hernan [...] disease; ?? if you are on a wee-hhpz-ggby; or ?? if you have ever had [...] may report side effects to FDA at 4-036-LDM-5311. What other drugs will affect valsartan? Tell [...] drugs may affect valsartan, including prescription and fqfa-tzx-mcstxfr medicines, vitamins, and herbal products. Not all [...] to ensure that the information provided by [employer]. ('[employer]') is accurate, up-to-date, and complete, but no guarantee is made to that effect. Drug information contained herein may be time sensitive. [employer] information has been compiled for use by healthcare practitioners and consumers in the [place] and therefore [employer] does not warrant that uses outside of the [place] are appropriate, unless specifically indicated otherwise. [employer] drug information does not endorse drugs, diagnose patients or recommend therapy. [employer] drug information is an informational resource designed [...] effective or appropriate for any given patient. [employer] does not assume any responsibility for any aspect of healthcare administered with the aid of information [employer] provides. The information contained herein is not intended to cover all possible uses, directions, precautions, warnings, drug interactions, allergic reactions, or adverse effects. If you have questions about the drugs you are taking, check with your doctor, nurse or pharmacist. Copyright 8056-0399 [employer]. Version: 17.02. Revision Date: 05/31/2018. aspirin (oral) [...] What is aspirin? Aspirin is a salicylate (bl-CIM-by-ate). It works by reducing substances in the [...] may report side effects to FDA at 6-194-XUN-0511. What other drugs will affect aspirin? Ask [...] drugs may affect aspirin, including prescription and piqd-lhu-wsoeiia medicines, vitamins, and herbal products. Not all [...] to ensure that the information provided by [employer]. ('[employer]') is accurate, up-to-date, and complete, but no guarantee is made to that effect. Drug information contained herein may be time sensitive. [employer] information has been compiled for use by healthcare practitioners and consumers in the [place] and therefore [employer] does not warrant that uses outside of the [place] are appropriate, unless specifically indicated otherwise. [employer] drug information does not endorse drugs, diagnose patients or recommend therapy. [employer] drug information is an informational resource designed [...] effective or appropriate for any given patient. [facility] does not assume any responsibility for any aspect of healthcare administered with the aid of information [facility] provides. The information contained herein is not intended to cover all possible uses, directions, precautions, warnings, drug interactions, allergic reactions, or adverse effects. If you have questions about the drugs you are taking, check with your doctor, nurse or pharmacist. Copyright 8575-9831 [facility]. Version: 15.. Revision Date: 06/05/2017. clopidogrel (kloe [...] may report side effects to FDA at 3-631-LSP-4951. What other drugs will affect clopidogrel? Certain other medicines may increase your risk of bleeding, including aspirin. Avoid taking aspirin unless your doctor tells you to. Tell your doctor about all your other medicines, especially: ?? any other medicines to treat or prevent blood clots; ?? a stomach acid fireperson such as omeprazole, Nexium, or Prilosec; ?? an antidepressant; ?? an opioid medication; ?? a blood thinner--warfarin, Coumadin, Jantoven; or ?? NSAIDs (nonsteroidal anti-inflammatory drugs)--ibuprofen (Advil, Motrin), naproxen (Aleve), celecoxib, diclofenac, indomethacin, meloxicam, and others. This list is not complete. Other drugs may affect clopidogrel, including prescription and bama-siz-mjdjuxv medicines, vitamins, and herbal products. Not all [...] to ensure that the information provided by [employer]. ('[employer]') is accurate, up-to-date, and complete, but no guarantee is made to that effect. Drug information contained herein may be time sensitive. [employer] information has been compiled for use by healthcare practitioners and consumers in the [place] and therefore [employer] does not warrant that uses outside of the [place] are appropriate, unless specifically indicated otherwise. [employer] drug information does not endorse drugs, diagnose patients or recommend therapy. [employer] drug information is an informational resource designed [...] effective or appropriate for any given patient. [facility] does not assume any responsibility for any aspect of healthcare administered with the aid of information [facility] provides. The information contained herein is not intended to cover all possible uses, directions, precautions, warnings, drug interactions, allergic reactions, or adverse effects. If you have questions about the drugs you are taking, check with your doctor, nurse or pharmacist. Copyright 3040-1302 [employer]. Version: 15.. Revision Date: 12/25/2017. carvedilol (HEIDY [...] may report side effects to FDA at 6-055-KGE-4882. What other drugs will affect carvedilol? Sometimes it is not safe to use certain medications at the same time. Some drugs can affect your blood levels of other drugs you take, which may increase side effects or make the medications less effective. Other drugs may affect carvedilol, including prescription and jbgl-dns-ggkkuas medicines, vitamins, and herbal products. Tell your [...]
--- OUTSIDE RECORDS SUMMARY | 2024-10-17 12:02 | XMS_ITS | Encounter Summary ---
Author Organization [employer] ([place], [place], [place], [place]) Address [address] [place] [address] Care Team Providers Care Strategic Business Development Name Role Phone Unavailable Primary Care Provider Unavailabl e Encounter Details Date Type Department Care Team (Late st Contact Info) Description 01/09/2019 Transcribed Document [facility] [place] [address] [place] [address] ProviderJose MD [address] [place], [place] [id number] Social History Tobacco Use Types Packs/Day Years Used Date Smoking Tobacco: Never Assessed Sex and Gender Information Value Date Recorded Sex Assigned at Not on file Legal Sex Male 2:31 PM CDT Gender Identity Not on file Sexual Orientation Not on file documented as of this encounter Miscellaneous Notes * Cerner Conversion Note - Jose ProviderMD - 01/09/2019 4:39 PM CASING MAN Pain Assessment Entered On: 01/09/2019 21:12 EST [...]
--- OUTSIDE RECORDS SUMMARY | 2024-10-17 12:02 | XMS_ITS | Encounter Summary ---
Author Organization [employer] ([place], [place], [place], [place]) Address [address] [place] [address] Care Team Providers Care Vp Hr Diversity Name Role Phone Unavailable Primary Care Provider Unavailabl e Encounter Details Date Type Department Care Team (Late st Contact Info) Description 01/11/2019 Transcribed Document [facility] [place] [address] [place] [address] ProviderJose MD [address] [place], [place] [id number] Social History Tobacco Use Types Packs/Day Years Used Date Smoking Tobacco: Never Assessed Sex and Gender Information Value Date Recorded Sex Assigned at Not on file Legal Sex Male 2:31 PM CDT Gender Identity Not on file Sexual Orientation Not on file documented as of this encounter Miscellaneous Notes * Cerner Conversion Note - Historical ProviderMD - 01/11/2019 5:00 AM TUBE FORMER OPERATOR Height and Weight, Routine Entered On: 01/11/2019 4:47 EST Performed On: 01/11/2019 5:00 EST by Aleida Philippe CNA Height and Weight, Routine Routine Weight Source : Standing scale Routine Weight Entry Format : Whatcom Routine Weight, Pounds : 162 lb Routine Weight, Ounces : 7 oz Routine Weight Calculation : 73.84 kg Height Source : Stated Height Entry Format : Whatcom Height, Feet : 5 ft Height, Inches [...]
--- OUTSIDE RECORDS SUMMARY | 2024-10-17 12:02 | XMS_ITS | Encounter Summary ---
Author Organization [employer] ([place], [place], [place], [place]) Address [address] [place] [address] Care Team Providers Care Box Icer Name Role Phone Unavailable Primary Care Provider Unavailabl e Encounter Details Date Type Department Care Team (Late st Contact Info) Description 01/10/2019 Transcribed Document [facility] [place] [address] [place] [address] ProviderJose MD [address] [place] [address] Social History Tobacco Use Types Packs/Day Years Used Date Smoking Tobacco: Never Assessed Sex and Gender Information Value Date Recorded Sex Assigned at Not on file Legal Sex Male 2:31 PM CDT Gender Identity Not on file Sexual Orientation Not on file documented as of this encounter Miscellaneous Notes * Cerner Conversion Note - Historical ProviderMD - 01/10/2019 9:24 AM FURNITURE AND BEDDING INSPECTOR Therapy Screen, PT Entered On: 01/10/2019 10:31 [...]
--- OUTSIDE RECORDS SUMMARY | 2024-10-17 12:02 | XMS_ITS | Referral Summary ---
Author Organization [employer] ([place], [place], [place], [place]) Address [address] [place] [address] Care Team Providers Care Beveller Operator Name Role Phone Unavailable Primary Care [...]
--- OUTSIDE RECORDS SUMMARY | 2024-10-17 12:02 | XMS_ITS | Encounter Summary ---
Author Organization [employer] ([place], [place], [place], [place]) Address [address] [place] [address] Care Team Providers Care Chief Business Officer Name Role Phone Unavailable Primary Care Provider Unavailabl e Encounter Details Date Type Department Care Team (Late st Contact Info) Description 01/10/2019 Transcribed Document [facility] [place] [address] [place] [address] ProviderJose MD [address] [place] [address] Social History Tobacco Use Types Packs/Day Years Used Date Smoking Tobacco: Never Assessed Sex and Gender Information Value Date Recorded Sex Assigned at Not on file Legal Sex Male 2:31 PM CDT Gender Identity Not on file Sexual Orientation Not on file documented as of this encounter Miscellaneous Notes * Cerner Conversion Note - Historical ProviderMD - 01/10/2019 8:05 AM MANUFACTURING RECRUITER Organic Chemistry Professor Details Entered On: 01/10/2019 8:05 EST Performed [...]
--- OUTSIDE RECORDS SUMMARY | 2024-10-17 12:02 | XMS_ITS | Encounter Summary ---
Author Organization [employer] ([place], [place], [place], [place]) Address [address] [place] [address] Care Team Providers Care Corner Bead Operator Name Role Phone Unavailable Primary Care Provider Unavailabl e Encounter Details Date Type Department Care Team (Late st Contact Info) Description 01/09/2019 Transcribed Document [facility] [place] [address] [place] [address] ProviderJose MD [address] [place], [place] [phone] Social History Tobacco Use Types Packs/Day Years Used Date Smoking Tobacco: Never Assessed Sex and Gender Information Value Date Recorded Sex Assigned at Not on file Legal Sex Male 2:31 PM CDT Gender Identity Not on file Sexual Orientation Not on file documented as of this encounter Miscellaneous Notes * Cerner Conversion Note - Historical ProviderMD - 01/09/2019 4:39 PM BULK SEALER OPERATOR Cardiac and Pulmonary Outpatient [facility] Entered On: 01/17/2019 13:47 EST Performed On: 01/09/2019 16:39 EST by ADELAIDE CHOI RN Cardiac and Pulmonary Outpatient [facility] Cardiac Outpatient Rehab Evaluation Comment : Order faxed to [facility] due to pts location. ADELAIDE CHOI RN - 01/17/2019 13:46 EST Electronically signed by [facility] Conversion Steam Brush Operator Cerner at 06/23/2022 12:00 PM CDT documented in this encounter Plan of Treatment Not on file documented as of this encounter Visit Diagnoses Not on filedocumented in this encounter
--- OUTSIDE RECORDS SUMMARY | 2024-10-17 12:02 | XMS_ITS | Clinical Summary ---
Author Organization [employer] ([place], [place], [place], [place]) Address [address] [place] [address] Care Team Providers Care Personal Driver Name Role Phone Unavailable Primary Care [...]
--- OUTSIDE RECORDS SUMMARY | 2024-10-17 12:02 | XMS_ITS | Encounter Summary ---
Author Organization [employer] ([place], [place], [place], [place]) Address [address] [place] [address] Care Team Providers Care Fur Buyer Name Role Phone Unavailable Primary Care Provider Unavailabl e Encounter Details Date Type Department Care Team (Late st Contact Info) Description 01/09/2019 Transcribed Document [facility] [place] [address] [place] [address] ProviderJose MD [address], [place] [id number] Social History Tobacco Use Types Packs/Day Years Used Date Smoking Tobacco: Never Assessed Sex and Gender Information Value Date Recorded Sex Assigned at Not on file Legal Sex Male 2:31 PM CDT Gender Identity Not on file Sexual Orientation Not on file documented as of this encounter Miscellaneous Notes * Cerner Conversion Note - Jose Stokes MD - 01/09/2019 4:30 PM ENTRY LEVEL PARALEGAL Patient: KINGSTON POLLOCK Age: 68 years Sex: [...] and he was diagnosed with non-ST elevation NE and transferred here. The patient also had [...] CVA - Cerebrovascular accident / SNOMED CT 682491479 / Confirmed Diabetes mellitus / SNOMED CT 766387502 / Confirmed Hyperlipidemia / SNOMED CT 58111862 / Confirmed Hypertension / SNOMED CT 93012793 / Confirmed, Active Problems (4) CVA - Cerebrovascular accident Diabetes mellitus Hyperlipidemia Hypertension Histories Past Medical History: No active or resolved past medical history items have been selected or recorded., As noted above Coronary artery disease never had a stent. Family History: No family history items have been selected or recorded., Patient does not know his family history Procedure history: Pacemaker ([id number]). Social History Social & Psychosocial Habits Alcohol [...] of motion, Normal strength. Integumentary: Warm, Dry, [place]. Neurologic: Alert, Oriented. Cognition and Speech: Oriented, [...] nephrotoxicity, possible need for emergent CABG/blood transfusion, NE, stroke or . I have discussed risks [...]
--- OUTSIDE RECORDS SUMMARY | 2024-10-17 12:02 | XMS_ITS | Encounter Summary ---
Author Organization [employer] ([place], [place], [place], [place]) Address [address] [place] [address] Care Team Providers Care Ladies Locker Room Attendant Name Role Phone Unavailable Primary Care Provider Unavailabl e Encounter Details Date Type Department Care Team (Late st Contact Info) Description 01/10/2019 Transcribed Document [facility] [place] [address] [place] [address] ProviderJose MD [address], [place] [id number] Social History Tobacco Use Types Packs/Day Years Used Date Smoking Tobacco: Never Assessed Sex and Gender Information Value Date Recorded Sex Assigned at Not on file Legal Sex Male 2:31 PM CDT Gender Identity Not on file Sexual Orientation Not on file documented as of this encounter Miscellaneous Notes * Cerner Conversion Note - Jose Stokes MD - 01/10/2019 4:12 PM DIRECTOR Patient: KINGSTON POLLOCK Age: 68 years Sex: Male : 1950 Associated Diagnoses: None Author: GERARDO RICHARDSON MD-CAR Postcardiac catheterization note: After I discuss the Finding and the findings of angioplasty and stenting with the family, the and the family members to told me that he had a prostate cancer, the CT scan done at [facility] suggested that he had metastatic disease [...]
--- OUTSIDE RECORDS SUMMARY | 2024-10-17 12:02 | XMS_ITS | Encounter Summary ---
Author Organization [employer] ([place], [place], [place], [place]) Address [address] [place] [address] Care Team Providers Care Shop Router Name Role Phone Unavailable Primary Care Provider Unavailabl e Encounter Details Date Type Department Care Team (Late st Contact Info) Description 01/09/2019 Transcribed Document [facility] [place] [address] [place] [address] ProviderJose MD [address] [place], [place] [phone] Social History Tobacco Use Types Packs/Day Years Used Date Smoking Tobacco: Never Assessed Sex and Gender Information Value Date Recorded Sex Assigned at Not on file Legal Sex Male 2:31 PM CDT Gender Identity Not on file Sexual Orientation Not on file documented as of this encounter Miscellaneous Notes * Cerner Conversion Note - Historical ProviderMD - 01/09/2019 4:39 PM GRAVEDIGGER Education-Cardiac Topics Entered On: 01/09/2019 21:13 EST Performed On: 01/09/2019 16:39 EST by Jailene Calvillo RN Teaching/Learning Assessment Barriers To Learning : None evident Individuals Taught : Patient, Spouse Readiness to Learn : Uninterested Jailene Calvillo RN - 01/09/2019 21:13 EST Electronically signed by [facility] Conversion Agricultural Engineering Technologist Steve at 06/23/2022 11:59 AM CDT documented in this encounter Plan of Treatment Not on file documented as of this encounter Visit Diagnoses Not on filedocumented in this encounter
--- OUTSIDE RECORDS SUMMARY | 2024-10-17 12:02 | XMS_ITS | Encounter Summary ---
Author Organization [employer] ([place], [place], [place], [place]) Address [address] [place] [address] Care Team Providers Care Film Developer Name Role Phone Unavailable Primary Care Provider Unavailabl e Encounter Details Date Type Department Care Team (Late st Contact Info) Description 01/11/2019 Transcribed Document [facility] [place] [address] [place] [address] ProviderJose MD [address] [place], [place] [phone] Social History Tobacco Use Types Packs/Day Years Used Date Smoking Tobacco: Never Assessed Sex and Gender Information Value Date Recorded Sex Assigned at Not on file Legal Sex Male 2:31 PM CDT Gender Identity Not on file Sexual Orientation Not on file documented as of this encounter Miscellaneous Notes * Cerner Conversion Note - Historical ProviderMD - 01/11/2019 3:57 PM DIET COUNSELOR Nursing Discharge Summary Entered On: 01/11/2019 15:58 EST Performed On: 01/11/2019 15:57 EST by Jailene Calvillo lead accountant Documentation Discharge Date/Time : 01/11/2019 15:50 EST [...] - 01/11/2019 15:57 EST Electronically signed by [facility] Conversion Information Receptionist Cerner at 06/23/2022 11:58 AM CDT documented in this encounter Plan of Treatment Not on file documented as of this encounter Visit Diagnoses Not on filedocumented in this encounter
--- OUTSIDE RECORDS SUMMARY | 2024-10-17 12:02 | XMS_ITS | Encounter Summary ---
Author Organization [employer] ([place], [place], [place], [place]) Address [address] [place] [address] Care Team Providers Care Account Management Assistant Name Role Phone Unavailable Primary Care Provider Unavailabl e Encounter Details Date Type Department Care Team (Late st Contact Info) Description 01/09/2019 Transcribed Document [facility] [place] Family Medicine [address] [place] [address] ProviderJose MD [address] [place], [place] [address] Social History Tobacco Use Types Packs/Day Years Used Date Smoking Tobacco: Never Assessed Sex and Gender Information Value Date Recorded Sex Assigned at Not on file Legal Sex Male 2:31 PM CDT Gender Identity Not on file Sexual Orientation Not on file documented as of this encounter Miscellaneous Notes * Cerner Conversion Note - Historical ProviderMD - 01/09/2019 5:00 PM PAPER GOODS MACHINE OPERATOR Chart Check - Review Order Profile Entered On: 01/09/2019 21:12 EST Performed On: 01/09/2019 17:00 EST by Jailene Calvillo RN Chart Check Powerplans Initiated/Discontinued as Appropriate : Not applicable All Active Orders Reviewed : Yes Jailene Calvillo RN - 01/09/2019 21:12 EST Electronically signed by Az [facility] Conversion Cloth Boil Off Machine Operator Cerner at 06/23/2022 12:04 PM CDT documented in this encounter Plan of Treatment Not on file documented as of this encounter Visit Diagnoses Not on filedocumented in this encounter
--- OUTSIDE RECORDS SUMMARY | 2024-10-17 12:02 | XMS_ITS | Encounter Summary ---
Author Organization [employer] ([place], [place], [place], [place]) Address [address] [place] [address] Care Team Providers Care Retail Services Professional Name Role Phone Unavailable Primary Care Provider Unavailabl e Encounter Details Date Type Department Care Team (Late st Contact Info) Description 01/10/2019 Transcribed Document [facility] [place] [address] [place] [address] ProviderJose MD [address] [place], [place] [id number] Social History Tobacco Use Types Packs/Day Years Used Date Smoking Tobacco: Never Assessed Sex and Gender Information Value Date Recorded Sex Assigned at Not on file Legal Sex Male 2:31 PM CDT Gender Identity Not on file Sexual Orientation Not on file documented as of this encounter Miscellaneous Notes * Cerner Conversion Note - Historical ProviderMD - 01/10/2019 11:16 AM SENIOR APPLICATION PROGRAMMER [place] OT Charges Entered On: 01/10/2019 11:16 EST Performed On: 01/10/2019 11:16 EST by KIM GUZMAN OTR/Jamilah Loving OT Charges Screen For Case Operator : 1 KIM GUZMAN OTR/Jamilah - 01/10/2019 11:16 EST documented in this encounter Plan of Treatment Not on file documented as of this encounter Visit Diagnoses Not on filedocumented in this encounter
--- OUTSIDE RECORDS SUMMARY | 2024-10-17 12:02 | XMS_ITS | Encounter Summary ---
Author Organization [employer] ([place], [place], [place], [place]) Address [address] [place] [address] Care Team Providers Care Boilermaker Loftsman Name Role Phone Unavailable Primary Care Provider Unavailabl e Encounter Details Date Type Department Care Team (Late st Contact Info) Description 01/10/2019 Transcribed Document [facility] [place] Family Medicine [address] [place] [address] ProviderJose MD [address] [place] [address] Social History Tobacco Use Types Packs/Day Years Used Date Smoking Tobacco: Never Assessed Sex and Gender Information Value Date Recorded Sex Assigned at Not on file Legal Sex Male 2:31 PM CDT Gender Identity Not on file Sexual Orientation Not on file documented as of this encounter Miscellaneous Notes * Cerner Conversion Note - Historical ProviderMD - 01/10/2019 5:00 AM PRODUCTION MECHANIC Height and Weight, Routine Entered On: 01/10/2019 6:08 EST Performed On: 01/10/2019 5:00 EST by Mitesh Hanson Cna I Height and Weight, Routine Routine Weight Source : Standing scale Routine Weight Entry Format : [place] Routine Weight, Pounds : 165 lb Routine Weight, Ounces : 8 oz Routine Weight Calculation : 75.23 kg Height Source : Stated Height Entry Format : [place] Height, Feet : 5 ft Height, Inches : 9 Inch Clinical Height : 175.26 cm Body Surface Area (BSA), Routine : 1.91 m2 Body Mass Index (BMI), Routine : 24.49 kg/m2 Mitesh Hanson Cna I - 01/10/2019 6:08 EST Electronically signed by Az [facility] Conversion Casey Saw Operator Cerner at 06/23/2022 12:05 PM CDT documented in this encounter Plan of Treatment Not on file documented as of this encounter Visit Diagnoses Not on filedocumented in this encounter
--- OUTSIDE RECORDS SUMMARY | 2024-10-17 12:02 | XMS_ITS | Encounter Summary ---
Author Organization [employer] ([place], [place], [place], [place]) Address [address] [place] [address] Care Team Providers Care Weight Inspector Name Role Phone Unavailable Primary Care Provider Unavailmacario e Encounter Details Date Type Department Care Team (Late st Contact Info) Description 01/10/2019 Transcribed Document [facility] [place] [address] [place] [address] ProviderJose MD [address] [place], [place] [address] Social History Tobacco Use Types Packs/Day Years Used Date Smoking Tobacco: Never Assessed Sex and Gender Information Value Date Recorded Sex Assigned at Not on file Legal Sex Male 2:31 PM CDT Gender Identity Not on file Sexual Orientation Not on file documented as of this encounter Miscellaneous Notes * Cerner Conversion Note - Historical ProviderMD - 01/10/2019 2:00 AM PROJECT ENGINEER Yarding Engineer Details Entered On: 01/10/2019 1:28 EST Performed [...]
--- OUTSIDE RECORDS SUMMARY | 2024-10-17 12:02 | XMS_ITS | Encounter Summary ---
Author Organization [employer] ([place], [place], [place], [place]) Address [address] [place] [address] Care Team Providers Care Continuous Vulcanizing Machine Operator Name Role Phone Unavailable Primary Care Provider Unavailabl e Encounter Details Date Type Department Care Team (Late st Contact Info) Description 01/10/2019 Transcribed Document [facility] [place] [address] [place] [address] ProviderJose MD [address] [place] [address] Social History Tobacco Use Types Packs/Day Years Used Date Smoking Tobacco: Never Assessed Sex and Gender Information Value Date Recorded Sex Assigned at Not on file Legal Sex Male 2:31 PM CDT Gender Identity Not on file Sexual Orientation Not on file documented as of this encounter Miscellaneous Notes * Cerner Conversion Note - Historical ProviderMD - 01/10/2019 9:24 AM LIFE TESTER OUTBOARD MOTORS Therapy Screen, OT Entered On: 01/10/2019 11:16 [...]
--- OUTSIDE RECORDS SUMMARY | 2024-10-17 12:02 | XMS_ITS | Encounter Summary ---
Author Organization [employer] ([place], [place], [place], [place]) Address [address] [place] [address] Care Team Providers Care Gta Name Role Phone Unavailable Primary Care Provider Unavailabl e Encounter Details Date Type Department Care Team (Late st Contact Info) Description 01/09/2019 Transcribed Document [facility] [place] Family Medicine [address] [place] [address] ProviderJose MD [address], [place] [id number] Social History Tobacco Use Types Packs/Day Years Used Date Smoking Tobacco: Never Assessed Sex and Gender Information Value Date Recorded Sex Assigned at Not on file Legal Sex Male 2:31 PM CDT Gender Identity Not on file Sexual Orientation Not on file documented as of this encounter Miscellaneous Notes * Cerner Conversion Note - Historical ProviderMD - 01/09/2019 4:03 PM CRANE HOOKER Admission History, Adult Entered On: 01/09/2019 16:47 [...] Nas Support Person/Pt Rep Contact Information : [phone] Want Family/Rep/Phys Notified of Admit : No Emergency Contact #1 : Noemi Pollock Emergency Contact #1 Emergency Contact #1 Relationship : spouse Emergency Contact #2 : Minal Bernardo Emergency Contact #2 Emergency Contact #2 Relationship : daughter Primary Language : Polish Preferred Communication Mode : Verbal Communication Barrier [...] Scale Risk Level : 0-24 Low Risk [place] Fall Interventions : Adequate lighting, Assistive devices [...] Source : Stated Height Entry Format : [place] Height, Feet : 5 ft(Converted to: 152 cm, 60 Inch) Height, Inches : 9 Inch(Converted to: 0 ft 9 Inch, 22.86 cm) Clinical Height : 175.26 cm Body Surface Area (BSA) : 1.92 m2 Body Mass Index : 24.9 kg/m2 (HI) [place] Body Weight : 70 kg Jailene Calvillo RN - 01/09/2019 19:02 EST Weight Source : Standing scale Weight Entry Format : [place] Clinical Dosing Weight : 76.53 kg Weight, [...]
--- OUTSIDE RECORDS SUMMARY | 2024-10-17 12:02 | XMS_ITS | Encounter Summary ---
Author Organization [employer] ([place], [place], [place], [place]) Address [address] [place] [address] Care Team Providers Care Offal Baler Name Role Phone Unavailable Primary Care Provider Unavailabl e Encounter Details Date Type Department Care Team (Late st Contact Info) Description 01/09/2019 Transcribed Document [facility] [place] Family Medicine [address] [place] [address] ProviderJose MD [address] [place] [address] Social History Tobacco Use Types Packs/Day Years Used Date Smoking Tobacco: Never Assessed Sex and Gender Information Value Date Recorded Sex Assigned at Not on file Legal Sex Male 2:31 PM CDT Gender Identity Not on file Sexual Orientation Not on file documented as of this encounter Miscellaneous Notes * Cerner Conversion Note - Jose ProviderMD - 01/09/2019 4:39 PM STONE TRIMMER Nutrition Assessment Entered On: 01/10/2019 11:30 EST [...] pain, non-STEMI PMH: CAD, questionable hx of [place], HTN, DM type 2, hypercholesterolemia, CVA Meds: [...]
--- OUTSIDE RECORDS SUMMARY | 2024-10-17 12:02 | XMS_ITS | Encounter Summary ---
Author Organization [employer] ([place], [place], [place], [place]) Address [address] [place] [address] Care Team Providers Care Music Leader Name Role Phone Unavailable Primary Care Provider Unavailabl e Encounter Details Date Type Department Care Team (Late st Contact Info) Description 01/11/2019 Transcribed Document [facility] [place] [address] [place] [address] ProviderJose MD [address] [place], [place] [address] Social History Tobacco Use Types Packs/Day Years Used Date Smoking Tobacco: Never Assessed Sex and Gender Information Value Date Recorded Sex Assigned at Not on file Legal Sex Male 2:31 PM CDT Gender Identity Not on file Sexual Orientation Not on file documented as of this encounter Miscellaneous Notes * Cerner Conversion Note - Historical ProviderMD - 01/11/2019 2:00 AM DIRECTOR OF MANUFACTURING Trader Fixed Income Details Entered On: 01/11/2019 2:18 EST Performed [...]
--- OUTSIDE RECORDS SUMMARY | 2024-10-17 12:02 | XMS_ITS | Encounter Summary ---
Author Organization [employer] ([place], [place], [place], [place]) Address [address] [place] [address] Care Team Providers Care Project Manager Finance Name Role Phone Unavailable Primary Care Provider Unavailabl e Encounter Details Date Type Department Care Team (Late st Contact Info) Description 01/11/2019 Transcribed Document [facility] [facility] [place] [address] [place] [address] ProviderJose MD [address] [place], [place] [id number] Social History Tobacco Use Types Packs/Day Years Used Date Smoking Tobacco: Never Assessed Sex and Gender Information Value Date Recorded Sex Assigned at Not on file Legal Sex Male 2:31 PM CDT Gender Identity Not on file Sexual Orientation Not on file documented as of this encounter Miscellaneous Notes * Cerner Conversion Note - Jose Stokes MD - 01/11/2019 11:00 AM SOFTWARE DESIGNER UM Authorization Entered On: 01/11/2019 11:01 EST Performed On: 01/11/2019 11:00 EST by KATHARINE MOREAU Rn-Utilization Review Primary Insurance Authorization Authorization and Policy Numbers : Insurance 1 Health Plan: R Policy Number: [id number] Authorization Number: Insurance 2 Health Plan: MEDICARE Policy Number: [id number] Authorization Number: Insurance Primary Name : [facility] [id number] Authorization Status-Primary : Pending clinicals Authorization Fax Number-Primary : [phone] Auth/Referral Phone Number-Primary : [phone] Auth/Referral Contact Name-Primary : Loren Reference Number-Primary : [id number] Authorized Service Begin Date-Primary : 01/11/2019 EST Authorization Comments-Primary : Clinicals faxed via [employer] to [phone] Historical Authorization Comments-Primary : Comment 1: rec'd call from Loren requesting clinicals be faxed to her [phone] fax [phone] (COLBY FABIAN, RN-Utilization Review 01/11/2019 10:04) Comment 2: Auth initiated on R portal. Awaiting call for clinicals. (KATHARINE MOREAU, Michael-Utilization Review 01/10/2019 10:02) KATHARINE MOREAU Rn-Utilization Review - 01/11/2019 11:00 EST documented in this encounter Plan of Treatment Not on file documented as of this encounter Visit Diagnoses Not on filedocumented in this encounter
--- OUTSIDE RECORDS SUMMARY | 2024-10-17 12:02 | XMS_ITS | Encounter Summary ---
Author Organization [employer] ([place], [place], [place], [place]) Address [address] [place] [address] Care Team Providers Care Laboratory Technology Teacher Name Role Phone Unavailable Primary Care Provider Unavailabl e Encounter Details Date Type Department Care Team (Late st Contact Info) Description 01/10/[address] [facility] [place] Family Medicine [address] [place] [address] ProviderJose MD [address] [place] [address] Social History Tobacco Use Types Packs/Day Years Used Date Smoking Tobacco: Never Assessed Sex and Gender Information Value Date Recorded Sex Assigned at Not on file Legal Sex Male 2:31 PM CDT Gender Identity Not on file Sexual Orientation Not on file documented as of this encounter Miscellaneous Notes * Cerner Conversion Note - Historical ProviderMD - 01/10/2019 5:00 AM MEDICAL VOUCHER CLERK Chart Check - Review Order Profile Entered [...]
--- OUTSIDE RECORDS SUMMARY | 2024-10-17 12:03 | XMS_ITS | Encounter Summary ---
Author Organization [employer] ([place], [place], [place], [place]) Address [address] [place] [address] Care Team Providers Care Vehicle Operator Name Role Phone Unavailable Primary Care Provider Unavailabl e Encounter Details Date Type Department Care Team (Late st Contact Info) Description 01/10/2019 Transcribed Document [facility] [place] Family [place] [address] [place] [address] ProviderJose MD [address] [place] [address] Social History Tobacco Use Types Packs/Day Years Used Date Smoking Tobacco: Never Assessed Sex and Gender Information Value Date Recorded Sex Assigned at Not on file Legal Sex Male 2:31 PM CDT Gender Identity Not on file Sexual Orientation Not on file documented as of this encounter Miscellaneous Notes * Cerner Conversion Note - Historical ProviderMD - 01/10/2019 7:02 AM MINE WIRER Event Note Entered On: 01/10/2019 7:03 EST [...]
--- OUTSIDE RECORDS SUMMARY | 2024-10-17 12:03 | XMS_ITS | Encounter Summary ---
Author Organization [employer] ([place], [place], [place], [place]) Address [address] [place] [address] Care Team Providers Care Door Machine Operator Name Role Phone Unavailable Primary Care Provider Unavailabl e Encounter Details Date Type Department Care Team (Late st Contact Info) Description 01/11/2019 Transcribed Document [facility] [place] [address] [place] [address] ProviderJose MD [address] [place], [place] [address] Social History Tobacco Use Types Packs/Day Years Used Date Smoking Tobacco: Never Assessed Sex and Gender Information Value Date Recorded Sex Assigned at Not on file Legal Sex Male 2:31 PM CDT Gender Identity Not on file Sexual Orientation Not on file documented as of this encounter Miscellaneous Notes * Cerner Conversion Note - Historical ProviderMD - 01/11/2019 5:00 AM WOOD BARREL RECONDITIONER Chart Check - Review Order Profile Entered On: 01/11/2019 5:12 EST Performed On: 01/11/2019 5:00 EST by Rowan Salcedo RN Chart Check Powerplans Initiated/Discontinued as Appropriate : Yes All Active Orders Reviewed : Yes Rowan Salcedo RN - 01/11/2019 5:12 EST Electronically signed by Az [facility] Conversion Employee Welfare Manager Cerner at 06/23/2022 12:05 PM CDT documented in this encounter Plan of Treatment Not on file documented as of this encounter Visit Diagnoses Not on filedocumented in this encounter
--- OUTSIDE RECORDS SUMMARY | 2024-10-17 12:03 | XMS_ITS | Encounter Summary ---
Author Organization [employer] ([place], [place], [place], [place]) Address [address] [place] [address] Care Team Providers Care Product Communications Manager Name Role Phone Unavailable Primary Care Provider Unavailabl e Encounter Details Date Type Department Care Team (Late st Contact Info) Description 01/10/2019 Transcribed Document [facility] [place] Family Medicine [address] [place] [address] ProviderJose MD [address] [place], [place] [address] Social History Tobacco Use Types Packs/Day Years Used Date Smoking Tobacco: Never Assessed Sex and Gender Information Value Date Recorded Sex Assigned at Not on file Legal Sex Male 2:31 PM CDT Gender Identity Not on file Sexual Orientation Not on file documented as of this encounter Miscellaneous Notes * Cerner Conversion Note - Jose ProviderMD - 01/10/2019 10:02 AM AVIONICS ELECTRICAL ENGINEER UM Authorization Entered On: 01/10/2019 10:04 EST Performed On: 01/10/2019 10:02 EST by KATHARINE MOREAU Rn-Utilization Review Primary Insurance Authorization Authorization and Policy Numbers : Insurance 1 Health Plan: R Policy Number: [id number] Authorization Number: Insurance 2 Health Plan: MEDICARE Policy Number: [id number] Authorization Number: Insurance Primary Name : R Authorization Status-Primary : Pending clinicals Authorized Service Begin Date-Primary : 01/11/2019 EST Authorization Comments-Primary : Auth initiated on [facility] portal. Awaiting call for clinicals. Historical Authorization Comments-Primary : No Authorization Comments Found KATHARINE MOREAU Rn-Utilization Review - 01/10/2019 10:02 EST documented in this encounter Plan of Treatment Not on file documented as of this encounter Visit Diagnoses Not on filedocumented in this encounter
--- OUTSIDE RECORDS SUMMARY | 2024-10-17 12:03 | XMS_ITS | Encounter Summary ---
Author Organization [employer] ([place], [place], [place], [place]) Address [address] [place] [address] Care Team Providers Care Preventive Maintenance Engineer Name Role Phone Unavailable Primary Care Provider Unavailabl e Encounter Details Date Type Department Care Team (Late st Contact Info) Description 01/11/[address] [facility] [place] Family [place] [address] [place] [address] ProviderJose MD [address] [place] [address] Social History Tobacco Use Types Packs/Day Years Used Date Smoking Tobacco: Never Assessed Sex and Gender Information Value Date Recorded Sex Assigned at Not on file Legal Sex Male 2:31 PM CDT Gender Identity Not on file Sexual Orientation Not on file documented as of this encounter Miscellaneous Notes * Cerner Conversion Note - Historical ProviderMD - 01/11/2019 3:23 PM REGISTERED PHARMACY TECHNICIAN Stroke/Warfarin Instructions Entered On: 01/11/2019 15:23 EST [...]
--- OUTSIDE RECORDS SUMMARY | 2024-10-17 12:03 | XMS_ITS | Encounter Summary ---
Author Organization [employer] ([place], [place], [place], [place]) Address [address] [place] [address] Care Team Providers Care Fresh Foods Cake Decorator Name Role Phone Unavailable Primary Care Provider Unavailabl e Encounter Details Date Type Department Care Team (Late st Contact Info) Description 01/11/2019 Transcribed Document [facility] [place] [facility] [place] [address] [place] [address] ProviderJose MD [address] [place], [place] [id number] Social History Tobacco Use Types Packs/Day Years Used Date Smoking Tobacco: Never Assessed Sex and Gender Information Value Date Recorded Sex Assigned at Not on file Legal Sex Male 2:31 PM CDT Gender Identity Not on file Sexual Orientation Not on file documented as of this encounter Miscellaneous Notes * Cerner Conversion Note - Jose Stokes MD - 01/11/2019 3:23 PM AUTOMOTIVE DETAILER Patient Education Materials Follows: Heart-Healthy Eating Plan [...] foods can I eat? Grains Breads, including Vietnamese, white, chencho, wheat, raisin, rye, oatmeal, and Citizen Of [place]. Tortillas that are neither fried nor made with lard or trans fat. Low-fat rolls, including hotdog and hamburger buns and [place] muffins. Biscuits. Muffins. Waffles. Pancakes. Light popcorn. [...] cooking, baking, salads, and as spreads. Other [place] powder. Coffee and tea. All seasonings and [...] cottage cheese. Whole-milk cheeses, including blue (bettye), Carrie Rajendra, Brie, Antelmo, Vincentian, Havarti, Indonesian, cheddar, Camembert, and [place]. Whole or 2% milk that is liquid, [...] that has suet, meat fat, or shortening. [place] butter, hydrogenated oils, palm oil, coconut oil, [...] 08/21/2012 Document Revised: 07/28/2016 Document Reviewed: 08/14/2014 [employer] Patient Education ? 2019 [employer]. Radial Site Care Refer to this sheet [...] 03/25/2011 Document Revised: 07/28/2016 Document Reviewed: 09/08/2014 Else[employer] Interactive Patient Education ? 2019 [employer] Inc. [...] and water are not available, use hand stabber. ? Change your dressing as told by [...] such as diabetes. General instructions ??? Take [id number] and prescription medicines only as told by [...] 09/09/2005 Document Revised: 11/17/2016 Document Reviewed: 11/17/2016 [employer] Interactive Patient Education ? 2019 [employer] Non-ST Segment Elevation Heart Attack A [...] 01/28/2015 Elsevier Interactive Patient Education ? 2017 [employer] documented in this encounter Plan of Treatment Not on file documented as of this encounter Visit Diagnoses Not on filedocumented in this encounter
--- OUTSIDE RECORDS SUMMARY | 2024-10-17 12:03 | XMS_ITS | Encounter Summary ---
Author Organization [employer] ([place], [place], [place], [place]) Address [address] [place] [address] Care Team Providers Care Replacer Name Role Phone Unavailable Primary Care Provider Unavailabl e Encounter Details Date Type Department Care Team (Late st Contact Info) Description 01/10/2019 Transcribed Document [facility] [place] Family Medicine Replaced by [facility] [place] [address] ProviderJose MD [address] [place] [address] Social History Tobacco Use Types Packs/Day Years Used Date Smoking Tobacco: Never Assessed Sex and Gender Information Value Date Recorded Sex Assigned at Not on file Legal Sex Male 2:31 PM CDT Gender Identity Not on file Sexual Orientation Not on file documented as of this encounter Miscellaneous Notes * Cerner Conversion Note - Jose Stokes MD - 01/10/2019 3:28 PM YEAST PUSHER DATE OF SERVICE: 01/10/2019 PROCEDURES: 1. Left [...] PROCEDURE: The patient was brought to heart label pinker where the right wrist was anesthetized with 1 cc lidocaine. A 6-Northern Irish artery sheath was placed. Landon catheter was [...] then question of ICD will be raised. /[id number] MD BLAISE Krishnan/TOM / BLAISE / MODL /[id number] documented in this encounter Plan of Treatment Not on file documented as of this encounter Visit Diagnoses Not on filedocumented in this encounter
--- OUTSIDE RECORDS SUMMARY | 2024-10-17 12:03 | XMS_ITS | Encounter Summary ---
Author Organization [employer] ([place], [place], [place], [place]) Address [address] [place] [address] Care Team Providers Care Solid Tire Tuber Machine Operator Name Role Phone Unavailable Primary Care Provider Unavailabl e Encounter Details Date Type Department Care Team (Late st Contact Info) Description 01/11/2019 Transcribed Document [facility] [place] [address] [place] [address] ProviderJose MD [address] [place] [address] Social History Tobacco Use Types Packs/Day Years Used Date Smoking Tobacco: Never Assessed Sex and Gender Information Value Date Recorded Sex Assigned at Not on file Legal Sex Male 2:31 PM CDT Gender Identity Not on file Sexual Orientation Not on file documented as of this encounter Miscellaneous Notes * [employer]ner Conversion Note - Jose ProviderMD - 01/11/2019 2:58 PM FLAT FINISHER Initial Discharge Planning Entered On: 01/11/2019 15:02 EST Performed On: 01/11/2019 14:58 EST by ADELAIDE QUIROZ, RN-Software Quality Assurance Engineer Initial Assessment I Previously Documented Living Environment : No qualifying data available. Living Situation : Home Patient Lives With : Spouse Is the Patient a Caregiver at Home? 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 : Yes Medical Durable Power of Associate Professor Of Music Name : No Legal Guardian : No ADELAIDE QUIROZ, RN-Software Quality Assurance Engineer - 01/11/2019 14:58 EST Initial Assessment II Sensory and Motor Deficits : None Current Home Treatments and Equipment : None ADELAIDE QUIROZ, RN-Software Quality Assurance Engineer - 01/11/2019 14:58 EST Discharge Needs I Anticipated Discharge Date : 01/11/2019 EST Anticipated Discharge To, CM : Home independently, Home with family care Current Home Treatment/Equipment : Current Home Treatment/Equipment No qualifying data available. Post Acute/Home Treatments : None Documentation Status Complete : Yes ADELAIDE QUIROZ, RN-Software Quality Assurance Engineer - 01/11/2019 14:58 EST Discharge Needs II Professional Skilled Services : Professional Skilled Services No qualifying data available. Needs Assistance with Transportation : No Discharge Options Discussed with Patient : Discharge transportation, DME ADELAIDE QUIROZ, RN-Software Quality Assurance Engineer - 01/11/2019 14:58 EST Narrative Note Narrative Note : Prior to admission patient was independent in all areas. Patient has a pacemaker in place managed by Marco A Gavin in [place]. Patient has had an emotional time this admission as prior to this the patient was seen at the ER at a local place, the hospital in [place] and now here. During this time his tearfully shared with CM it was reported to them by [place] that an oncology consult would be needed due to findings on the CT scans. Home plan. ADELAIDE QUIROZ, RN-Software Quality Assurance Engineer - 01/11/2019 14:58 EST documented in this encounter Plan of Treatment Not on file documented as of this encounter Visit Diagnoses Not on filedocumented in this encounter
--- OUTSIDE RECORDS SUMMARY | 2024-10-17 12:03 | XMS_ITS | Encounter Summary ---
Author Organization [employer] ([place], [place], [place], [place]) Address [address] [place] [address] Care Team Providers Care Armored Truck Driver Name Role Phone Unavailable Primary Care Provider Unavailabl e Encounter Details Date Type Department Care Team (Late st Contact Info) Description 01/10/2019 Transcribed Document [facility] [place] Family Medicine [address] [place] [address] ProviderJose MD [address] [place], [place] [id number] Social History Tobacco Use Types Packs/Day Years Used Date Smoking Tobacco: Never Assessed Sex and Gender Information Value Date Recorded Sex Assigned at Not on file Legal Sex Male 2:31 PM CDT Gender Identity Not on file Sexual Orientation Not on file documented as of this encounter Miscellaneous Notes * Cerner Conversion Note - Historical ProviderMD - 01/10/2019 9:[address] [facility] Charges Entered On: 01/10/2019 10:31 EST Performed On: 01/10/2019 9:24 EST by HECTOR GONZALEZ, PT [facility]es Physical Therapy Screen : 1 HECTOR GONZALEZ, PT - 01/10/2019 10:24 EST Electronically signed by Shay Bernardo Conversion Receptionist Telephone Operator Cerner at 06/23/2022 11:51 AM CDT documented in this encounter Plan of Treatment Not on file documented as of this encounter Visit Diagnoses Not on filedocumented in this encounter
--- OUTSIDE RECORDS SUMMARY | 2024-10-17 12:03 | XMS_ITS | Encounter Summary ---
Author Organization [employer] ([place], [place], [place], [place]) Address [address] [place] [address] Care Team Providers Care Platform Material Handling Supervisor Name Role Phone Unavailable Primary Care Provider Unavailabl e Encounter Details Date Type Department Care Team (Late st Contact Info) Description 01/11/2019 Transcribed Document [facility] [place] [address] [place] [address] ProviderJose MD [address], [place] [id number] Social History Tobacco Use Types Packs/Day Years Used Date Smoking Tobacco: Never Assessed Sex and Gender Information Value Date Recorded Sex Assigned at Not on file Legal Sex Male 2:31 PM CDT Gender Identity Not on file Sexual Orientation Not on file documented as of this encounter Miscellaneous Notes * Cerner Conversion Note - Jose ProviderMD - 01/11/2019 11:48 AM ENROBING MACHINE CORDER Patient: KINGSTON POLLOCK Age: 68 years Sex: [...] Pain (Mild 1-3) Xarelto: 20 mg, Oral, [id number] Zofran: 4 mg, IV Push, Q6H, PRN: [...] mg tab 20 mg 1 Tab, Oral, [id number] valsartan 40 mg tab 40 mg 1 [...] At risk for sleep apnea / IMO 25812420 / Confirmed Atrial fibrillation / SNOMED CT 51400115 / Confirmed Pacemaker / SNOMED CT 6499312989 / Confirmed CAD (coronary artery disease) / SNOMED CT 93686321 / Confirmed CVA - Cerebrovascular accident / SNOMED CT 400647341 / Confirmed Diabetes mellitus / SNOMED CT 259774202 / Confirmed Hyperlipidemia / SNOMED CT 58999134 / Confirmed Hyperlipidemia / SNOMED CT 03882758 / Confirmed Hypertension / SNOMED CT 35669557 / Confirmed Prostate CA / SNOMED CT 7669030056 / Confirmed, Active Problems (10) At risk [...] EST Height Source Stated Height Entry Format [place] Height/Length, [place] (ft) 5 ft Height/Length [place] 9 Inch CLINICALHEIGHT 175.26 cm Routine Weight Source Standing scale Routine Weight Entry Format [place] Routine Weight, Pounds 162 lb Routine Weight, Ounces 7 oz Routine Weight Calculation 73.84 kg Body Mass Index (BMI), Routine 24.04 kg/m2 Body Surface Area (BSA), Routine 1.89 m2 01/10/2019 5:00 EST Height Source Stated Height Entry Format [place] Height/Length, [place] (ft) 5 ft Height/Length [place] 9 Inch CLINICALHEIGHT 175.26 cm Routine Weight Source Standing scale Routine Weight Entry Format [place] Routine Weight, Pounds 165 lb Routine Weight, [...] Gastrointestinal: Normal bowel sounds. Integumentary: Warm, Dry, Graball. Results Review General results Today's results 01/11/2019 [...] planned for them to see oncology in [facility]. AMS changes -ct head no [...]
--- OUTSIDE RECORDS SUMMARY | 2024-10-17 12:03 | XMS_ITS | Encounter Summary ---
Author Organization [employer] ([place], [place], [place], [place]) Address [address] [place] [address] Care Team Providers Care Furnace Operator Name Role Phone Unavailable Primary Care Provider Unavailabl e Encounter Details Date Type Department Care Team (Late st Contact Info) Description 01/11/2019 Transcribed Document [facility] [place] Family Medicine [address] [place] [address] ProviderJose MD [address] [place], [place] [id number] Social History Tobacco Use Types Packs/Day Years Used Date Smoking Tobacco: Never Assessed Sex and Gender Information Value Date Recorded Sex Assigned at Not on file Legal Sex Male 2:31 PM CDT Gender Identity Not on file Sexual Orientation Not on file documented as of this encounter Miscellaneous Notes * Cerner Conversion Note - Jose Stokes MD - 01/11/2019 10:04 AM BOOTH CLEANER [facility] Authorization Entered On: 01/11/2019 10:05 EST Performed On: 01/11/2019 10:04 EST by COLBY FABIAN RN-Utilization Review Primary Insurance Authorization Authorization and Policy Numbers : Insurance 1 Health Plan: R Policy Number: [id number] Authorization Number: Insurance 2 Health Plan: MEDICARE Policy Number: [id number] Authorization Number: Insurance Primary Name : [facility] [id number] Authorization Status-Primary : Pending clinicals Authorization Fax Number-Primary : [phone] Auth/Referral Phone Number-Primary : [phone] Auth/Referral Contact Name-Primary : Loren Reference Number-Primary : [id number] Authorized Service Begin Date-Primary : 01/11/2019 EST Authorization Comments-Primary : rec'd call from Loren requesting clinicals be faxed to her [phone] fax [phone] Historical Authorization Comments-Primary : Comment 1: Auth initiated on [employer] portal. Awaiting call for clinicals. (KATHARINE MOREAU, Rn-Utilization Review 01/10/2019 10:02) COLBY FABIAN RN-Utilization Review - 01/11/2019 10:04 EST Electronically signed by [facility] Conversion Crisis Counselor Cerner at 06/23/2022 12:02 PM CDT documented in this encounter Plan of Treatment Not on file documented as of this encounter Visit Diagnoses Not on filedocumented in this encounter
--- OUTSIDE RECORDS SUMMARY | 2024-10-17 12:03 | XMS_ITS | Encounter Summary ---
Author Organization [employer] ([place], [place], [place], [place]) Address [address] [place] [address] Care Team Providers Care Scientific Illustrator Name Role Phone Unavailable Primary Care Provider Unavailabl e Encounter Details Date Type Department Care Team (Late st Contact Info) Description 01/14/2019 Transcribed Document [facility] [place] Medicine [address] [place] [address] ProviderJose MD [address] [place] [address] Social History Tobacco Use Types Packs/Day Years Used Date Smoking Tobacco: Never Assessed Sex and Gender Information Value Date Recorded Sex Assigned at Not on file Legal Sex Male 2:31 PM CDT Gender Identity Not on file Sexual Orientation Not on file documented as of this encounter Miscellaneous Notes * Cerner Conversion Note - Jose Stokes MD - 01/14/2019 2:16 PM APPLICATION DEVELOPMENT PROJECT MANAGER [facility] Authorization Entered On: 01/14/2019 14:17 EST Performed On: 01/14/2019 14:16 EST by COLBY FABIAN RN-Utilization Review Primary Insurance Authorization Authorization and Policy Numbers : Insurance 1 Health Plan: [facility] Policy Number: [id number] Authorization Number: Insurance 2 Health Plan: MEDICARE Policy Number: [id number] Authorization Number: Insurance Primary Name : [facility] [id number] Authorization Status-Primary : Pending clinicals Authorization Fax Number-Primary : [phone] Auth/Referral Phone Number-Primary : [phone] Auth/Referral Contact Name-Primary : Loren Reference Number-Primary : [id number] Authorization Number-Primary : [id number] Number of Days Authorized-Primary : 2 Day(s) Authorized Service Begin Date-Primary : 01/09/2019 EST Authorized Service End Date-Primary : 01/11/2019 EST Authorization Comments-Primary : Approved per loren Historical Authorization Comments-Primary : Comment 1: Clinicals faxed via [employer] to [phone] (KATHARINE MOREAU, Rn-Utilization Review 01/11/2019 11:00) Comment 2: rec'd call from Loren requesting clinicals be faxed to her [phone] fax [phone] (COLBY FABIAN RN-Utilization Review 01/11/2019 10:04) Comment 3: Auth initiated on [facility] portal. Awaiting call for clinicals. (KATHARINE MOREAU, Rn-Utilization Review 01/10/2019 10:02) COLBY FABIAN RN-Utilization Review - 01/14/2019 14:16 EST documented in this encounter Plan of Treatment Not on file documented as of this encounter Visit Diagnoses Not on filedocumented in this encounter
[2024-10-17 12:28] LABS: Reticulocyte % (Auto) 1.4 % (0.9-3.2)
[2024-10-17 13:29] LABS: Iron 75 ug/dL (49-181)
[2024-10-17 13:38] LABS: Total Iron Binding Capacity 347 ug/dL (261-462)
[2024-10-17 13:57] LABS: Prostate Specific Ag, Diagnost 2.63 ng/ml (0.0-4.0)
[2024-10-17 14:04] LABS: Folate 6.21 ng/mL
[2024-10-17 14:05] LABS: Ferritin 113 ng/ml (17.9-464)
[2024-10-17 14:15] LABS: Vitamin B12 742 pg/mL (239-931)
== END 2024-10-17 23:59 | disposition home or self-care (01) ==
LOC: LAB 12:00
PROVIDERS: PCP Family Medicine; Visit Provider Internal Medicine Medical Oncology
DX: D61.818 Other pancytopenia (principal); D50.0 Iron deficiency anemia secondary to blood loss (chronic)
CPT/HCPCS: 36415; 81596; 82607; 82728; 82746; 83540; 83550; 83615; 84153; 85044; 86880

== ENCOUNTER 2024-11-28 11:04 | Outpatient (CLI) | payer MEDICARE, MEDICAID, SELFPAY ==
--- OUTSIDE RECORDS SUMMARY | 2024-10-24 10:45 | XMS_ITS | Encounter Summary ---
Author Organization [facility] Address [address] [place] [address] Care Team Providers Care Lockstitch Front Edge Tape Sewer Name Role Phone Eric Maria MD Primary Care Provider [phone] Reason for Referral * Consultation (Routine) - Authorized Specialty Diagnoses / Procedures Referred By Manuela munoz Referred To Contact Diagnoses Gastrointestinal hemorrhage, unspecified gastrointestinal hemorrhage type Anemia, unspecified type Jennifer Barber APRN, DNP [address] [facility] [place] [address] Phone: tel: fax: Referral ID Status Reason Start Date Expiration Date V isits Requested Visits Authorized [id number] Authorized 10/24/2024 04/25/2026 1 1 Reason for Visit * Reason Comments Gastrointestinal hemorrhage associated w ith duodenal ulcer * Consultation (Routine) - Closed Specialty Diagnoses / Procedures Referred By Conttimothy t Referred To Contact Gastroenterology Diagnoses Gastrointestinal hemorrhage associated with duodenal ulcer Miguel Fong MD [address] [place] [address] Phone: tel: fax: Referral ID Status Reason Start Date Expiration Date V isits Requested Visits Authorized [id number] Closed Specialty Services Required 07/10/2024 01/09/2026 1 1 Encounter Details Date Type Department Care Team (Latest Contact Info) Description 10/24/2024 10:45 AM EDT Office Visit [facility] [address], [address] [place] [address] Jennifer Barber APRN, DNP [address] [place] [address] Gastrointestinal hemorrhage, unspecified gastrointestinal hemorrhage [...] and Family Not on file 06/24/2024 Attends [employer] Services Not on file 06/24 Active Member [...] time in the past 12 m [facility], were you homeless or living [...] Notes * Progress Notes - Jennifer Barber, PATTERN CHAIN BUILDER, DNP - 10/24/2024 10:45 AM EDT Outpatient [...] the request of Dr. Miguel Fong MDfor [facility] follow-up for Anemia and GI Bleed. PMH significant for CAD, HI x 3, CVA, Depression, T2DM, PHELPS, HTN, [...] has had some recent health set- backs [id number], causing him to have a few additional [...] lab results that were completed at OSH ([facility]) on 10/15/2024 and 10/17/2024 and not [...] pain. Has now become established with a Warehouse Supervisor 3Rd Shift at [facility] since hospital discharge, and is now [...] Friends and Family: Not on file Attends [employer] Services: Not on file Active Member of [...] mg, Oral, Every 4 hours PRN, Under [place] law, monthly prescriptions (30 days) can be [...] lab results that were completed at OSH ([facility]) on 10/15/2024 and 10/17/2024, which revealed: [...] Reportedly has now become established with a Warehouse Supervisor 3Rd Shift at [facility] since hospital discharge, and is now [...] his agreeable to plan Recommended referral to Services Executive and/or Rx for Boost supplements to help [...] [facility] a [facility] (around of this year), which [...] a medical document. It is intended as [id number] communication. It is written in medical language [...] CARDIAC PACEMAKER PLACEMENT N/A Pacemaker Placement from [facility] CARDIAC STENT Right 09/27/2023 CAROTID STENT CATARACT EXTRACTION N/A Cataract surgery from [facility] CORONARY ANGIOPLASTY WITH STENT PLACEMENT N/A Cardiac catheterization with stent placement from [facility] [3] Family History Problem Relation Name Age [...] Description 01/23/2025 9:45 AM EST Office Visit [facility] Medicine Specialties [address] [place] [address] Jennifer Barber APRN, DNP [address] [place] [address] 02/28/2025 9:00 AM EST Office Visit [facility] [address], [address] [place] [address] Chu Null MD [address] [place] [address] 09/11/2025 10:00 AM EDT Ancillary Procedure [facility] Medicine [facility] [address], [address] [place] [address] 09/11/2025 11:00 AM EDT Office Visit [facility] Medicine [facility] [address], [address] [place] [address] Jeff Longoria MD [address] [place] [address] Scheduled Referrals Name Type Priority [...] documented as of this encounter Care Teams Lockstitch Front Edge Tape Sewer Relationship Specialty Start Date End Date Eric Maria MD [address] [place] [address] PCP - General 11/04/20 documented as of this encounter
[2024-11-28] VITALS (10 sets, daily range): BP systolic 99–147; BP diastolic 48–83; PULSE 60–72; RESP 17–18; O2SAT 99
--- OUTSIDE RECORDS SUMMARY | 2024-11-28 11:19 | XMS_ITS | Encounter Summary ---
Author Organization [employer] ([place], [place], [place], [place]) Address [address] [place] [address] Care Team Providers Care Dry Heat Cabinet Attendant Name Role Phone Unavailable Primary Care Provider Unavailabl e Encounter Details Date Type Department Care Team (Late st Contact Info) Description 01/10/2019 Transcribed Document [facility] [place] Family Medicine [address] [place] [address] ProviderJose MD [address] [place] [address] Social History Tobacco Use Types Packs/Day Years Used Date Smoking Tobacco: Never Assessed Sex and Gender Information Value Date Recorded Sex Assigned at Not on file Legal Sex Male 2:31 PM CDT Gender Identity Not on file Sexual Orientation Not on file documented as of this encounter Miscellaneous Notes * Cerner Conversion Note - Historical ProviderMD - 01/10/2019 9:24 AM RIGGING FOREMAN Therapy Screen, PT Entered On: 01/10/2019 10:31 [...] EST Electronically signed by Shay Bernardo Conversion Engineer System Administrator Cerner at 06/23/2022 11:57 AM CDT documented in this encounter Plan of Treatment Not on file documented as of this encounter Visit Diagnoses Not on filedocumented in this encounter
--- OUTSIDE RECORDS SUMMARY | 2024-11-28 11:19 | XMS_ITS | Encounter Summary ---
Author Organization [facility] Address [address] [place] [address] Care Team Providers Care Police Investigator Name Role Phone Eric Maria MD Primary Care Provider [phone] Encounter Details Date Type Department Care Team (Late st Contact Info) Description 05/26/2024 Orders Only External Location [address] [place] [address] Provider, External Social History Tobacco Use Types [...] Description 01/23/2025 9:45 AM EST Office Visit [facility] [address], [address] [place] [address] Jennifer Barber, BIT GATHERER, DNP [address] [place] [address] 02/28/2025 9:00 AM EST Office Visit [facility] [address], [address] [place] [address] Chu Null MD [address] [place] [address] 09/11/2025 10:00 AM EDT Ancillary Procedure [facility] Medicine Specialties [address], [address] [place] [address] 09/11/2025 11:00 AM EDT Office Visit [place] [address] [place] [address] Jeff Longoria MD [address] [place] [address] documented as of this encounter [...] documented as of this encounter Care Teams Police Investigator Relationship Specialty Start Date End Date Eric Maria MD [address] [place] [address] PCP - General 11/04/20 documented as of this encounter
--- OUTSIDE RECORDS SUMMARY | 2024-11-28 11:19 | XMS_ITS | Encounter Summary ---
Author Organization [employer] ([place], [place], [place]) Address [address] [place] [address] Care Team Providers Care Manager Food Beverage Name Role Phone Unavailable Primary Care Provider Unavailabl e Encounter Details Date Type Department Care Team (Late st Contact Info) Description 01/11/2019 Transcribed Document [facility] [address] [place] [address] ProviderJose MD [address] [place], [place] [id number] Social History Tobacco Use Types Packs/Day Years Used Date Smoking Tobacco: Never Assessed Sex and Gender Information Value Date Recorded Sex Assigned at Not on file Legal Sex Male 2:31 PM CDT Gender Identity Not on file Sexual Orientation Not on file documented as of this encounter Miscellaneous Notes * Cerner Conversion Note - Historical ProviderMD - 01/11/2019 5:00 AM BEVELING AND EDGING MACHINE OPERATOR Height and Weight, Routine Entered On: 01/11/2019 4:47 EST Performed On: 01/11/2019 5:00 EST by Aleida Philippe CNA Height and Weight, Routine Routine Weight Source : Standing scale Routine Weight Entry Format : [place] Routine Weight, Pounds : 162 lb Routine Weight, Ounces : 7 oz Routine Weight Calculation : 73.84 kg Height Source : Stated Height Entry Format : [place] Height, Feet : 5 ft Height, Inches [...]
--- OUTSIDE RECORDS SUMMARY | 2024-11-28 11:19 | XMS_ITS | Encounter Summary ---
Author Organization [employer] ([place], [place], [place], [place]) Address [address] [place] [address] Care Team Providers Care Recapper Name Role Phone Unavailable Primary Care Provider Unavailabl e Encounter Details Date Type Department Care Team (Late st Contact Info) Description 01/10/2019 Transcribed Document [facility] [place] Family Medicine [address] [place] [address] ProviderJose MD [address] [place], [place] [id number] Social History Tobacco Use Types Packs/Day Years Used Date Smoking Tobacco: Never Assessed Sex and Gender Information Value Date Recorded Sex Assigned at Not on file Legal Sex Male 2:31 PM CDT Gender Identity Not on file Sexual Orientation Not on file documented as of this encounter Miscellaneous Notes * Cerner Conversion Note - Jose Stokes MD - 01/10/2019 4:12 PM PRINT GRAPHIC DESIGNER Patient: KINGSTON POLLOCK Age: 68 years Sex: Male : 1950 Associated Diagnoses: None Author: GERARDO RICHARDSON MD-CAR Postcardiac catheterization note: After I discuss the Finding and the findings of angioplasty and stenting with the family, the and the family members to told me that he had a prostate cancer, the CT scan done at [facility] suggested that he had metastatic disease and [...]
--- OUTSIDE RECORDS SUMMARY | 2024-11-28 11:19 | XMS_ITS | Encounter Summary ---
Author Organization [employer] ([place], [place], [place], [place]) Address [address] [place] [address] Care Team Providers Care Bridge Toll Collector Name Role Phone Unavailable Primary Care Provider Unavailabl e Encounter Details Date Type Department Care Team (Late st Contact Info) Description 01/11/2019 Transcribed Document [facility] Family Medicine [address] [place] [address] ProviderJose MD [address] [place], [place] [id number] Social History Tobacco Use Types Packs/Day Years Used Date Smoking Tobacco: Never Assessed Sex and Gender Information Value Date Recorded Sex Assigned at Not on file Legal Sex Male 2:31 PM CDT Gender Identity Not on file Sexual Orientation Not on file documented as of this encounter Miscellaneous Notes * Cerner Conversion Note - Jose Stokes MD - 01/11/2019 11:00 AM GRANULAR OPERATOR UM Authorization Entered On: 01/11/2019 11:01 EST Performed On: 01/11/2019 11:00 EST by KATHARINE MOREAU Rn-Utilization Review Primary Insurance Authorization Authorization and Policy Numbers : Insurance 1 Health Plan: R Policy Number: [id number] Authorization Number: Insurance 2 Health Plan: MEDICARE Policy Number: [id number] Authorization Number: Insurance Primary Name : [facility] [id number] Authorization Status-Primary : Pending clinicals Authorization Fax Number-Primary : [phone] Auth/Referral Phone Number-Primary : [phone] Auth/Referral Contact Name-Primary : Loren Reference Number-Primary : [id number] Authorized Service Begin Date-Primary : 01/11/2019 EST Authorization Comments-Primary : Clinicals faxed via [place] [facility] to [phone] Historical Authorization Comments-Primary : Comment 1: rec'd call from Loren requesting clinicals be faxed to her [phone] fax [phone] (COLBY FABIAN, RN-Utilization Review 01/11/2019 10:04) Comment 2: Auth initiated on R portal. Awaiting call for clinicals. (KATHARINE MOREAU, Michael-Utilization Review 01/10/2019 10:02) KATHARINE MOREAU Rn-Utilization Review - 01/11/2019 11:00 EST documented in this encounter Plan of Treatment Not on file documented as of this encounter Visit Diagnoses Not on filedocumented in this encounter
--- OUTSIDE RECORDS SUMMARY | 2024-11-28 11:19 | XMS_ITS | Encounter Summary ---
Author Organization [employer] ([place], [place], [place], [place]) Address [address] [place] [address] Care Team Providers Care Land Leveler Name Role Phone Unavailable Primary Care Provider Unavailabl e Encounter Details Date Type Department Care Team (Late st Contact Info) Description 01/11/2019 Transcribed Document [facility] [place] Medicine [address] [place] [address] ProviderJose MD [address] [place], [place] [address] Social History Tobacco Use Types Packs/Day Years Used Date Smoking Tobacco: Never Assessed Sex and Gender Information Value Date Recorded Sex Assigned at Not on file Legal Sex Male 2:31 PM CDT Gender Identity Not on file Sexual Orientation Not on file documented as of this encounter Miscellaneous Notes * Cerner Conversion Note - Historical ProviderMD - 01/11/2019 2:00 AM WAREHOUSE OPERATIONS MANAGER Telecommunications Analyst Details Entered On: 01/11/2019 2:18 EST Performed [...]
--- OUTSIDE RECORDS SUMMARY | 2024-11-28 11:19 | XMS_ITS | Encounter Summary ---
Author Organization [facility] Address [address] [place] [address] Care Team Providers Care Wireless Manager Name Role Phone Eric Maria MD Primary Care Provider Encounter Details Date Type Department Care Team ([facility] st Contact Info) Description 06/24/2024 Lab Requisition [facility] [address] [place] [address] Mirza Reyna MD [address] [facility] [address] [place] [address] Encounter for general adult medical examination without [...] th e electric, gas, oil, or water [employer] threatened to shut off services in your [...] Description 01/23/2025 9:45 AM EST Office Visit [facility] [address], [address] [place] [address] Jennifer Barber APRN, OMAR [address] [facility] [address] [place] [address] 02/28/2025 9:00 AM EST Office Visit [facility] [address], [address] [place] [address] Chu Null MD [address] [facility] [address] [place] [address] 09/11/2025 10:00 AM EDT Ancillary Procedure [facility] [address] [place] [address] 09/11/2025 11:00 AM EDT Office Visit [address], [address] [place] [address] Jeff Longoria MD [address] [place] [address] documented as of this encounter Procedures Procedure Name Priority Date/Time Associated Diagnosis Comments MULTI DRUG RESISTANCE TEST Routine 06/24/2024 12:00 PM EDT Encounter for general adult medical examination without abnormal findings documented in this encounter Results * Multi Drug Resistance Test (06/24/2024 12:00 PM EDT) Culture No Multi Drug Resistant Organisms Isolated 06/25/2024 1:21 PM EDT [facility] Swab (Nares and Dhara Rectal) 06/24/2024 12:00 PM EDT 06/24/2024 2:24 PM EDT us Mirza Reyna MD LAB MICROBIOLOGY - GEN ERAL ORDERABLES Final Result [facility] [address] [place] [address] documented in this encounter Visit Diagnoses Diagnosis [...] documented as of this encounter Care Teams Wireless Manager Relationship Specialty Start Date End Date Eric Maria MD [address] [place] [address] PCP - General 11/04/20 documented as of this encounter
--- OUTSIDE RECORDS SUMMARY | 2024-11-28 11:19 | XMS_ITS | Encounter Summary ---
Author Organization [facility] Address [address] [place] [address] Care Team Providers Care Gold Blower Name Role Phone Eric Maria MD Primary Care Provider [phone] Encounter Details Date Type Department Care Team (Late st Contact Info) Description 05/31/2024 Orders Only External Location [address] [place] [address] Provider, External Social History Tobacco Use Types [...] Description 01/23/2025 9:45 AM EST Office Visit [place] [facility] Medicine Specialties [address], [address] [place] [address] Jennifer Barber, CONCRETE MIXER OPERATOR HELPER, DNP [address] [place] [address] 02/28/2025 9:00 AM EST Office Visit [facility] [address], [address] [place] [address] Chu Null MD [address] [place] [address] 09/11/2025 10:00 AM EDT Ancillary Procedure [facility] Medicine Specialties [address], [address] [place] [address] 09/11/2025 11:00 AM EDT Office Visit [place] [address] [place] [address] Jeff Longoria MD [address] [place] [address] documented as of this encounter Procedures Procedure Name Priority Date/Time Associated Diagnosis Comments XR MSK OUTSIDE IMAGES 05/31/2024 12:01 PM EDT documented in this encounter Results * XR MSK OUTSIDE IMAGES (05/31/2024 12:01 PM EDT) Anatomical Region Laterality Modality Radiographic Melly ging 05/31/2024 12:0 1 PM EDT us External Provider IMG XR PROCEDURES Final Result [...] documented as of this encounter Care Teams Gold Blower Relationship Specialty Start Date End Date Eric Maria MD [address] [place] [address] PCP - General 11/04/20 documented as of this encounter
--- OUTSIDE RECORDS SUMMARY | 2024-11-28 11:19 | XMS_ITS | Clinical Summary ---
Author Organization [facility] Address [address] [place] [address] Care Team Providers Care Acidizer Name Role Phone Eric Maria MD Primary Care Provider Allergies No known active allergies Medications clopidogrel (Plavix) 75 MG tablet Take 1 tablet by mouth daily. 03/18/19 20 Active nitroglycerin (Nitrostat) 0.[address] 1 tablet under the tongue as needed. 03/18/19 20 Active Xarelto 20 MG tablet Take 1 tablet by mouth daily. 09/12/19 21 Active ramipril (Altace) 10 MG capsule TAKE ONE (1) CAPSULE ONCE DAILY 02/18/20 23 Active bicalutamide (Casodex) 50 MG chemo tablet Active leuprolide (Lupron) 11.25 MG injection Inject 11.25 mg into the muscle every 6 (six) months. 09/16/19 23 Active furosemide (Lasix) 40 MG tablet Take 1 tablet by mouth daily. 12/14/19 23 Active fluticasone (Flonase) 50 MCG/ACT nasal spray Administer 1 spray into each nostril as needed for allergies. Active cyanocobalamin 1000 MCG tablet Take 1 tablet by mouth daily. Active spironolactone (Aldactone) 25 MG tablet Take 1 tablet by mouth daily. 12/14/19 23 Active pravastatin (Pravachol) 80 MG tablet TAKE ONE (1) TABLET EVERY DAY BY ORAL ROUTE. Active latanoprost (Xalatan) 0.005 % ophthalmic solution Administer 1 drop into both eyes nightly. 09/12/19 24 Active insulin lispro (Admelog) 100 UNIT/ML injection Inject 0-5 Units under the skin 3 times a day with meals. See After Visit Summary for instructions on how to take your insulin. 07/11/19 25 Active insulin lispro (Admelog) 100 UNIT/ML injection Inject 0-3 Units under the skin 2 times a night. See After Visit Summary for instructions on how to take your insulin. 07/11/19 25 Active acetaminophen (Tylenol) 325 MG tablet Take 2 tablets by mouth every 4 hours as needed for fever (for temperature > 38.5). Under [place] law, monthly prescriptions (30 days) can be refilled at 25 days and three-month prescriptions (90 days) at 80 days. Please contact the insurance company with questions if refills are denied. 07/11/19 25 Active bisacodyl (Dulcolax) 10 MG suppository Insert 1 suppository into the rectum daily. 12 suppository 07/12/19 Active Additional Information Patient not taking.Reported on 10/24/2024 melatonin tablet Take 3 tablets by mouth at night as needed for sleep. 07/11/19 25 Active metoprolol tartrate (Lopressor) 25 MG tablet Take 1 tablet by mouth 2 times a day. 07/11/19 25 Active Additional Information Patient not taking.Reported on 10/24/2024 pantoprazole (Protonix) 40 MG EC tablet Take 1 tablet by mouth every 12 hours. Do not crush, chew, or split. 07/11/19 Active polyethylene glycol (Miralax) 17 g packet Take 17 g by mouth 2 times a day. 07/11/19 25 Active Additional Information Patient not taking.Reported on 10/24/2024 senna-docusate (Dhara-Colace) 8.6-50 MG tablet Take 2 tablets by mouth 2 times a day. 07/11/19 25 Active Additional Information Patient not taking.Reported on 10/24/2024 albuterol 108 (90 Base) MCG/ACT inhaler INHALE TWO (2) PUFFS FOUR (4) (FOUR) TIMES A DAY. Active lisinopril 40 MG tablet 40 mg by oral route. 06/13/19 25 Active Methylcobalamin [address] under the tongue. 07/11/19 Active mirtazapine (Remeron) 15 MG tablet TAKE ONE HALF (1/2) TABLET BY MOUTH AT BEDTIME 06/22/19 Active potassium chloride CR (K-Tab) 20 MEQ ER tablet Take 1 tablet every day by oral route for 14 days. 08/29/19 Active carbidopa-levod opa (Sinemet) 25-100 MG tablet Take 1 tablet by mouth 3 times a day. 270 tablet 09/17/19 Active atorvastatin (Lipitor) 80 MG tablet Take 1 tablet by mouth nightly. 10/10/19 Active budesonide-form oterol (Symbicort) 160-4.5 MCG/ACT inhaler INHALE TWO (2) PUFFS TWICE A DAY BY INHALATION ROUTE. 10/19/19 Active sucralfate (Carafate) 1 GM/10ML suspension TAKE 10 ML FOUR (4) TIMES A DAY BY ORAL ROUTE BEFORE MEAL(S). Active metoprolol succinate XL (Toprol-XL) 50 MG 24 hr tablet Take 1 tablet by mouth 2 times a day. 10/10/19 25 Active Farxiga 10 MG tablet Take 1 tablet by mouth daily. 10/10/19 25 Active Eliquis 5 MG tablet Take 1 tablet by mouth 2 times a day. 10/19/19 Active Active Problems Problem Noted Date Diagnosed Date Severe protein-calorie malnutrition 06/26/2024 GIB (gastrointestinal bleeding) 06/23/2024 Parkinson's disease without dyskinesia or fluctuating manifestations 11/03/2023 Resolved Problems Problem Noted Date Diagnosed Date Resolved Date Shock 06/27/2024 11/24/2024 Encounters Date Type Department Care Team Description 11/21/2024 Telephone [facility] [address] [place] [address] Chu Null MD 10/24/2024 10:45 AM EDT Office Visit [facility] Medicine Specialties [address], [address] [place] [address] Jennifer Barber APRN, DNP Gastrointestinal hemorrhage, unspecified gastrointestinal hemorrhage type (Primary Dx); Anemia, unspecified type; Unintentional weight loss; Healthcare maintenance 10/24/2024 Travel 09/13/2024 Refill [place] [facility] [address], [address] [place] [address] Chris Stratton MBBS 09/12/2024 9:30 AM EDT Office Visit [facility] Medicine Specialties [address], [address] [place] [address] Jeff Longoria MD Pulmonary sarcoidosis (CMS/HCC) (Primary Dx); Dyspnea on exertion 09/12/2024 8:00 AM EDT Ancillary Procedure [facility] Medicine Specialties [address], [address] [place] [address] Sarcoidosis; Shortness of breath 09/12/2024 Travel 09/10/2024 [...] and Family Not on file 06/24/2024 Attends [employer] Not on file 06/24 Active Member [...] any time in the past [address] [facility], were you homeless or living in a long-term (including now)? No 06/24/2024 Utilities Answer Date [...] F) 10/24/2024 10:52 AM EDT Respiratory Rate 16 09/12/2024 8:30 AM EDT Oxygen Saturation 98% 10/24/2024 10:52 AM EDT Inhaled Oxygen Concentration - - Weight 62 kg (136 lb 11 oz) 10/24/2024 10:52 AM EDT Height 175.3 cm (5' 9 ) 10/24/2024 10:52 AM EDT Body Mass Index 20.18 10/24/2024 10:52 AM EDT Plan of Treatment Upcoming Encounters Date Type Department Care Team (Late st Contact Info) Description 01/23/2025 9:45 AM EST Office Visit [facility] Medicine [facility] [address], [address] [place] [address] Jennifer Barber APRN, DNP [address] [place] [address] 02/28/2025 9:00 AM EST Office Visit [facility] [address], [address] [place] [address] Chu Null MD [address] [place] [address] 09/11/2025 10:00 AM EDT Ancillary Procedure [facility] [address], [address] [place] [address] 09/11/2025 11:00 AM EDT Office Visit [place] [address], [address] [place] [phone] Jeff Longoria MD [address] [place] [address] Health Maintenance Due Date Last Done Comments [facility]-Medicare Annual Wellness (AWV) 1950 [facility]-Infant/Child/Adol SDOH Screenings 1950 [id number] Vaccine (#1) 1954 Diabetes: Dental Exam 07/27/1959 [facility]-DTaP,Tdap,and Td Vaccine s (1 - Tdap) 1968 [facility]-Pneumococcal Vaccine: 50 + Years (1 of 2 - PCV) 1968 [facility]-Zoster Vaccines (1 of 2) 1968 CT Colonography 1994 Colonoscopy 1994 FIT-DNA 1994 FIT 1994 FOBT 1994 Sigmoidoscopy 1994 [facility]-Colorectal Cancer Screening 1994 [facility]-RSV Vaccine: 60+ Years o r (1 - 1-dose 75+ series) 2024 Gastroscopy (EGD) 08/20/2024 07/08/2024, 06/26/2024 [facility]-Influenza Vaccine (#1) 2024 [facility]-Diabetes: Hemoglobin A1C 12/22/2024 06/24/2024 [facility]- SDOH Screenings 12/24/2024 [facility]-Adult SDOH Screenings 12/24/2024 06/24/2024 [facility]-Depression Screening 09/12/2025 025, 09/12/2024 [facility]-Hepatitis C Screening Completed 06/24/2024 HPV Vaccines [...] Care Plan Autogenerated Problem No Antonia Johnson, residential mortgage underwriter Procedure Name Priority Date/Time Associated Diagnosis Comments [...] Pulmonary function test (09/12/2024 8:36 AM EDT) SCJ0NNS 2.84(A) 2.87 - 4.99 L VYAIRE PFT FVC PRED 3.92 VYAIRE PFT FVC LLN 2.87 VYAIRE PFT FVCPREZSCORE -1.69 VYAIRE PFT FVCPRE%PRED 72 % % VYAIRE PFT FVC PREDAUTBonner General Hospitaljer [facility] (2011) VYAIRE PFT FVC Z-SCORE -1.69 VYAIRE PFT FEV1 PRE 2.15 2.08 - 3.74 L VYAIRE PFT FEV1 PRED 2.94 VYAIRE PFT FEV1 LLN 2.08 VYAIRE PFT TKP0BZQXKMLSO -1.52 VYAIRE PFT FEV1_Pre%Pred 73 % % VYAIRE PFT FEV1 PREDAUT [facility] GLI (2011) VYAIRE PFT FEV1 Z-SCORE -1.52 VYAIRE PFT FEV1/FVC PRE 75.58 61.31 - 88.08 % VYAIRE PFT IRF0NLXCYKH 75 VYAIRE PFT HRG3NJYEQB 61 VYAIRE PFT REK4KFLEOOKSCBQP 0.02 VYAIRE PFT MZU4RTNKPK%PRED 100 % % VYAIRE PFT KSH2ENBEUVFP [facility] GLI (2011) VYAIRE PFT NDN7YUDMVWFFW 0 VYAIRE PFT EOA29-04% PRE 1.79 0.88 - 4.02 L/s VYAIRE PFT RAH10-96%_Pred 2.16 VYAIRE PFT VAW0927%LLN 0.88 VYAIRE PFT ZTG4051%PREZSCORE -0.41 VYAIRE PFT TCC1408%PRE%PRED 83 % % VYAIRE PFT RCJ8278%PREDD[facility] (2011) VYAIRE PFT PEF PRE 4.44(A) 5.35 - 9.86 L/s VYAIRE PFT PEF PRED 7.61 VYAIRE PFT PEF LLN 5.35 VYAIRE PFT PEFPREZSCORE -2.31 VYAIRE PFT PEFPRE%PRED 58 % % VYAIRE PFT PEF PREDCLOV[facility] III (1998) VYAIRE PFT TZKDPVBUXWGGFZDP3ZAD 8.88(A) 17.76 - 32.27 ml/(min* mmHg) VYAIRE PFT DLCOSINGLEBREATH PRED 24.36 VYAIRE PFT DLCOSINGLEBREATH LLN 17.76 VYAIRE PFT DLCOSINGLEBREATH Z-SCORE -4.61 VYAIRE PFT DLCOSINGLEBREATH % PRED 36.5 % VYAIRE PFT DLCOSINGLEBREATH PREDShriners Hospitals for Children (2019) VYAIRE PFT DLCOSINGLEBREATH Z-SCORE -4.61 09/12/2024 8:27 AM EDT VYAIRE PFT OHJFXKMTTRSUAKZDJ1DI E 8.88(A) 17.76 - 32.27 ml/(min* mmHg) VYAIRE PFT DLCOCSINGLEBREATH PRED 24.36 VYAIRE PFT DLCOCSINGLEBREATH LLN 17.76 VYAIRE PFT DLCOCSINGLEBREATH Z-SCORE -4.61 VYAIRE PFT DLCOCSINGLEBREATH % PRED 36.5 % VYAIRE PFT DLCOCSINGLEBREATH PREDAtrium Health Mountain Islandojevic TLCO GLI (2019) VYAIRE PFT ZJMWUO4JNY 2.13(A) 2.92 - 5.14 ml/(min* mmHg*L) VYAIRE PFT DLCOVAPRED 3.98 VYAIRE PFT DLCOVALLN 2.92 VYAIRE PFT DLCOVAZSCORE -3.02 VYAIRE PFT DLCOVA%PRED 53.5 % VYAIRE PFT DLCOVAPREDAUT Stanojevic TLCO GLI (2019) VYAIRE PFT DLCOVAZSCORE -3.02 09/12/2024 8:27 AM EDT VYAIRE PFT KOKAAIXKH5XDG 2.13(A) 2.92 - 5.14 ml/(min* mmHg*L) VYAIRE PFT DLCOC SB/VA PRED 3.98 VYAIRE PFT DLCOC SB/VA LLN 2.92 VYAIRE PFT DLCOC SB/VA Z-SCORE -3.02 VYAIRE PFT DLCOC SB/VA % PRED 53.5 % VYAIRE PFT DLCOC SB/VA PREDCLOV[facility] Stanojevic TLCO GLI (2019) VYAIRE PFT DLCOC SB/VA Z-SCORE -3.02 09/12 8:27 AM EDT VYAIRE PFT RRKNXTDMRYYODB4TSW 4.17(A) 4.94 - 7.45 L VYAIRE PFT VASINGLEBREATH PRED 6.15 VYAIRE PFT VASINGLEBREATH LLN 4.94 VYAIRE PFT VASINGLEBREATH Z-SCORE -2.77 VYAIRE PFT VASINGLEBREATH % PRED 67.9 % VYAIRE PFT VASINGLEBREATH PREDCLOVIS BAP[facility]IST [facility]OSP[facility] Stanojevic TLCO GLI (2019) VYAIRE PFT VASINGLEBREATH Z-SCORE -2.77 09/12/2024 8:27 AM EDT VYAIRE PFT ZXBWNPYFLBCBPFW8WJK 2.60(A) 2.87 - 4.99 L VYAIRE PFT IVCSINGLEBREATH PRED 3.92 VYAIRE PFT IVCSINGLEBREATH LLN 2.87 VYAIRE PFT IVCSINGLEBREATH Z-SCORE -2.07 VYAIRE PFT IVCSINGLEBREATH % PRED 66.3 % VYAIRE PFT IVCSINGLEBREATH PREDNEWYORK-[facility] (2011) VYAIRE PFT ISATU% VCMAX PRE 87.23 % VYAIRE PFT TLC SB PRE 4.32(A) 5.39 - 8.38 L VYAIRE PFT TLCSINGLEBREATH PRED 6.87 VYAIRE PFT TLCSINGLEBREATH LLN 5.39 VYAIRE PFT TLCSINGLEBREATH Z-SCORE -2.85 VYAIRE PFT TLCSINGLEBREATH % PRED 62.9 % VYAIRE PFT TLCSINGLEBREATH PREDMurphy Army Hospital Lung volumes GLI (2019)__ VYAIRE PFT HB PRE 14.60 g(Hb)/dL VYAIRE PFT CFN7JJD 4.95(A) 5.39 - 8.38 L VYAIRE PFT TLCPRED 6.87 VYAIRE PFT TLCLLN 5.39 VYAIRE PFT TLCULN 8.38 VYAIRE PFT TLCZSCORE -2.14 VYAIRE PFT TLC%PRED 72.0 % VYAIRE PFT TLCPREDMurphy Army Hospital Lung volumes GLI (2019)__ VYAIRE PFT VC0PRE 2.98 2.87 - 4.99 L VYAIRE PFT VCPRED 3.92 VYAIRE PFT VCLLN 2.87 VYAIRE PFT VCULN 4.99 VYAIRE PFT VCZSCORE -1.47 VYAIRE PFT VC%PRED 76.0 % VYAIRE PFT VCPREDAUTBayhealth Emergency Center, [place] GLI (2011) VYAIRE PFT IC0PRE 1.81(A) 2.06 - 3.85 L VYAIRE PFT ICPRED 2.98 VYAIRE PFT ICLLN 2.06 VYAIRE PFT ICULN 3.85 VYAIRE PFT IC Z-SCORE -2.08 VYAIRE PFT IC%PRED 61.0 % VYAIRE PFT ICPREDMurphy Army Hospital Lung volumes GLI (2019)__ VYAIRE PFT OOXPIXNP9VPX 3.14 2.65 - 5.23 L VYAIRE PFT FRCPLETH PRED 3.80 VYAIRE PFT FRCPLETH LLN 2.65 VYAIRE PFT FRCPLETH ULN 5.23 VYAIRE PFT FRCPLETH Z-SCORE -0.90 VYAIRE PFT FRCPLETH % PRED 82.6 % VYAIRE PFT FRCPLETH PREDAUTH [facility] Lung volumes GLI (2019)__ VYAIRE PFT UND4CKO 1.17 0.35 - 2.42 L VYAIRE PFT [...] [facility] Lung volumes GLI (2019)__ VYAIRE PFT RV%OBA9BRN 39.80 25.64 - 50.70 % VYAIRE PFT [...] function testing today at the [facility]. The patient underwent spirometry, lung volumes by [...] abdominal pain, fever, gastrointestinal bleeding and call client relationship consultant GI if present. - Findings and recommendations were discussed with patient immediately following the procedure in PACU - Findings and recommendations to be conveyed to primary team. Indication Gastrointestinal hemorrhage, unspecified gastrointestinal hemorrhage type Medications See anesthesia record for anesthesia administered medications. Staff Staff Role Sofia Mcdowell, Yannick Chavez CRNA Endo Pattern Hand Rose Serrano MD Proceduralist Deirdre Kwok RN [...] Antigen Negative Negative 06/24/2024 1:35 AM EDT [facility] Hepatitis C Antibody Negative Negative 06/24/2024 1:35 AM EDT [facility] Hepatitis A Antibody IgM Negative Negative 06/24/2024 1:35 AM EDT [facility] Hepatitis B Core Antibody IgM Negative Negative 06/24/2024 1:35 AM EDT [facility] Blood Venous blood specimen / Unknown Venipuncture / Unknown 06/24/2024 12:17 AM EDT 06/24/2024 12:31 AM EDT [employer] K Melvi PA LAB BLOOD ORDERABLES Final R esult Performing Organization Address [facility] Co de Phone Number [facility] [address] [phone] * Hemoglobin A1c (06/24/2024 12:17 AM EDT) Hemoglobin A1c 5.3 <5.7 % 06/24/2024 7:20 AM EDT [facility] Blood Venous blood specimen / Unknown Venipuncture / Unknown 06/24/2024 12:17 AM EDT 06/24/2024 12:31 AM EDT Narrative [facility] - 06/24/2024 7:20 AM EDT HA1C Interpretive Data: Diagnosis of Diabetes: Diabetic > or = 6.5% Pre-diabetic 5.7 to 6.4% Non-diabetic < or = 5.6% Glycemic Targets for Type I and Type II Diabetics: Non- Adults <7.0% Adults <6.0% Children and Adolescents <7.5% Source: [place] [employer]. Standards of medical care in diabetes,2017. Diabetes Care.2017:40 (suppl 1):S1-S135. [place] [employer] K Melvi PA LAB BLOOD ORDERABLES Final R esult Performing Organization Address [facility] Co de Phone Number [facility] [address] [place] [phone] from Last 3 Months or Most Recently [...] updated to appropriate status: Yes Care Teams Acidizer Relationship Specialty Start Date End Date Eric Maria MD [address] [place] [phone] PCP - General 11/04/20
--- OUTSIDE RECORDS SUMMARY | 2024-11-28 11:19 | XMS_ITS | Encounter Summary ---
Author Organization [facility] Address [address] [place] [address] Care Team Providers Care Felling Machine Operator Name Role Phone Eric Maria MD Primary Care Provider Encounter Details Date Type Department Care Team (Late st Contact Info) Description 05/27/2024 Orders Only External Location [address] [place] [address] Provider, External Social History Tobacco Use Types [...] Description 01/23/2025 9:45 AM EST Office [facility] Medicine Specialties [address], [address] [place] [address] Jennifer Barber, PEDIATRIC ANESTHESIOLOGIST, DNP [address] [place] [address] 02/28/2025 9:00 AM EST Office Visit [facility] [address], [address] [place] [address] Chu Null MD [address] [place] [address] 09/11/2025 10:00 AM EDT Ancillary Procedure [facility] Medicine Specialties [address], [address] [place] [address] 09/11/2025 11:00 AM EDT Office Visit [place] [address] [place] [address] Jeff Longoria MD [address] [place] [address] documented as of this encounter Procedures Procedure Name Priority Date/Time Associated Diagnosis Comments XR OUTSIDE IMAGES 05/27/2024 5:05 PM EDT documented in this encounter Results * XR OUTSIDE IMAGES (05/27/2024 5:05 PM EDT) Anatomical Region Laterality Modality Radiographic Melly ging 05/27/2024 5:05 PM EDT us External Provider IMG XR [...] documented as of this encounter Care Teams Felling Machine Operator Relationship Specialty Start Date End Date Eric Maria MD [address] [place] [address] PCP - General 11/04/20 documented as of this encounter
--- OUTSIDE RECORDS SUMMARY | 2024-11-28 11:19 | XMS_ITS | Encounter Summary ---
Author Organization [facility] Address [address] [place] [address] Care Team Providers Care Sound Equipment Mechanic Name Role Phone Eric Maria MD Primary Care Provider Encounter Details Date Type Department Care Team (Latest Contact Info) Description 10/24/2024 Travel Social History Tobacco Use Types Packs/Day [...] and Family Not on file 06/24/2024 Attends [employer] Not on file 06/24 Active Member [...] any time in the past 12 m [facility], were you homeless or living in a fci (including now)? No 06/24/2024 Utilities Answer Date [...] Description 01/23/2025 9:45 AM EST Office Visit [facility] Medicine Specialties [address], [address] [place] [address] Jennifer Barber APRN, DNP [address] [facility] [address] [place] [address] 02/28/2025 9:00 AM EST Office Visit [facility] [address], [address] [place] [address] Chu Null MD [address] [place] [address] 09/11/2025 10:00 AM EDT Ancillary Procedure [facility] [address] [place] [address] 09/11/2025 11:00 AM EDT Office Visit [facility] [address], [address] [place] [address] Jeff Longoria MD [address] [place] [address] documented as of this encounter [...] documented as of this encounter Care Teams Sound Equipment Mechanic Relationship Specialty Start Date End Date Erci Maria MD [address] [place] [phone] PCP - General 11/04/20 documented as of this encounter
--- OUTSIDE RECORDS SUMMARY | 2024-11-28 11:19 | XMS_ITS | Encounter Summary ---
Author Organization [employer] ([place], [place], [place], [place]) Address [address] [place] [address] Care Team Providers Care Childcare Aide Name Role Phone Unavailable Primary Care Provider Unavailabl e Encounter Details Date Type Department Care Team (Late st Contact Info) Description 01/11/2019 Transcribed Document [facility] Family Medicine [address] [place] [address] ProviderJose MD [address] [place] [address] Social History Tobacco Use Types Packs/Day Years Used Date Smoking Tobacco: Never Assessed Sex and Gender Information Value Date Recorded Sex Assigned at Not on file Legal Sex Male 2:31 PM CDT Gender Identity Not on file Sexual Orientation Not on file documented as of this encounter Miscellaneous Notes * Cerner Conversion Note - Jose Stokes MD - 01/11/2019 3:23 PM FASHION STYLIST [place] [id number] [place] :1950 Visit Time:01/09/2019 Your Visit [...] need ot follow up with pcp in [facility] for prostate canacer gulshan When Within 2 to 3 days Follow Up with GERARDO RICHARDSON When Within 2 weeks Comments Office to call with appoint/instructions cbc check for blood counts in 2 weeks Where: [facility] [address] [place] [phone] (1) Medications What How Much When Instructions Next Dose carvedilol (Coreg 3.125 mg oral tablet) 1 Tablet(s) Oral Two Times A Day Pickup at [facility] clopidogrel (clopidogrel 75 mg oral tablet) 1 Tablet(s) Oral Every Day Pickup at [facility] nitroglycerin (Nitrostat 0.4 mg sublingual tablet) 1 Tablet(s) SubLINgual Every 5 minutes as needed for as needed for chest pain Pickup at [facility] rivaroxaban (Xarelto 20 mg oral tablet) 1 Tablet(s) Oral Interval Every 24 Hours valsartan (Diovan 40 mg oral tablet) 1 Tablet(s) Oral Every Day Pickup at [facility] PRAVAstatin (Pravachol 80 mg oral tablet) 1 Tablet(s) Oral Every Day Pickup at [facility] aspirin (aspirin 81 mg oral tablet) 1 Tablet(s) Oral Every Day Pickup at [facility] glipiZIDE (glipiZIDE 10 mg oral tablet, extended release) 1 Tablet(s) Oral Twice a Day Before Meals insulin detemir (Levemir FlexPen 100 units/ mL subcutaneous solution) 30 Unit(s) SubCutaneous At Bedtime metformin (metformin 1000 mg oral tablet) 1 Tablet(s) Oral Two Times A Day hold until friday 01/12 Pharmacy Information [facility]: [address] [place], [place] [id number] [phone] Take your medications faithfully. Do NOT skip [...] foods can I eat? Grains Breads, including Tajik, white, chencho, wheat, raisin, rye, oatmeal, and Spanish. Tortillas that are neither fried nor made with lard or trans fat. Low-fat rolls, including hotdog and hamburger buns and Somali muffins. Biscuits. Muffins. Waffles. Pancakes. Light popcorn. Whole-grain cereals. Flatbread. [place]emah toast. Pretzels. Breadsticks. Rusks. Low-fat snacks. Low-fat [...] cooking, baking, salads, and as spreads. Other Thendara powder. Coffee and tea. All seasonings and [...] cottage cheese. Whole-milk cheeses, including blue (bettye), Wetzel Rajendra, Brie, Antelmo, Haitian, Havarti, Panamanian, cheddar, Camembert, and [place]. Whole or 2% milk that is liquid, [...] that has suet, meat fat, or shortening. Thendara butter, hydrogenated oils, palm oil, coconut oil, [...] 08/21/2012 Document Revised: 07/28/2016 Document Reviewed: 08/14/2014 [employer] Interactive Patient Education ?? 2019 [employer] Radial Site Care Refer to this [...] 03/25/2011 Document Revised: 07/28/2016 Document Reviewed: 09/08/2014 [employer] Interactive Patient Education ?? 2019 [employer] Coronary Angiogram With Stent, Care After [...] and water are not available, use hand life trainer. ? Change your dressing as told by [...] such as diabetes. General instructions ??? Take lcrb-gbm-yigayrs and prescription medicines only as told by [...] 09/09/2005 Document Revised: 11/17/2016 Document Reviewed: 11/17/2016 [employer] Interactive Patient Education ?? 2019 [employer] Non-ST Segment Elevation Heart Attack A [...] 09/19/2005 Document Revised: 05/14/2012 Document Reviewed: 01/28/2015 [employer] Interactive Patient Education ?? 2017 [employer]. pravastatin (PRAV a STAT in) Pravachol What [...] may report side effects to FDA at 2-075-PLV-9207. What other drugs will affect pravastatin? Using [...] may interact with pravastatin, including prescription and vkvu-jqr-cqdfayo medicines, vitamins, and herbal products. Not all [...] to ensure that the information provided by [employer] ('[employer]') is accurate, up-to-date, and complete, but no guarantee is made to that effect. Drug information contained herein may be time sensitive. [employer] information has been compiled for use by healthcare practitioners and consumers in the [place] and therefore [employer] does not warrant that uses outside of the [place] are appropriate, unless specifically indicated otherwise. [employer]'s drug information does not endorse drugs, diagnose patients or recommend therapy. [employer] drug information is an informational resource designed [...] effective or appropriate for any given patient. [employer] does not assume any responsibility for any aspect of healthcare administered with the aid of information [employer] provides. The information contained herein is not intended to cover all possible uses, directions, precautions, warnings, drug interactions, allergic reactions, or adverse effects. If you have questions about the drugs you are taking, check with your doctor, nurse or pharmacist. Copyright 7132-7338 [employer]. Version: 13.01. Revision Date: 10/21/2015. valsartan (hernan [...] disease; ?? if you are on a huh-qxup-bmel; or ?? if you have ever had [...] may report side effects to FDA at 7-720-YHX-4961. What other drugs will affect valsartan? Tell [...] drugs may affect valsartan, including prescription and pwfi-gsi-tfhmgrt medicines, vitamins, and herbal products. Not all [...] to ensure that the information provided by [employer] ('[employer]') is accurate, up-to-date, and complete, but no guarantee is made to that effect. Drug information contained herein may be time sensitive. [employer] information has been compiled for use by healthcare practitioners and consumers in the [place] and therefore [employer] does not warrant that uses outside of the [place] are appropriate, unless specifically indicated otherwise. [employer] drug information does not endorse drugs, diagnose patients or recommend therapy. [employer] drug information is an informational resource designed [...] effective or appropriate for any given patient. [employer] does not assume any responsibility for any aspect of healthcare administered with the aid of information [employer] provides. The information contained herein is not intended to cover all possible uses, directions, precautions, warnings, drug interactions, allergic reactions, or adverse effects. If you have questions about the drugs you are taking, check with your doctor, nurse or pharmacist. Copyright 7140-4959 [employer] Version: 17.02. Revision Date: 05/31/2018. aspirin (oral) [...] What is aspirin? Aspirin is a salicylate (yk-KTR-ho-ate). It works by reducing substances in the [...] may report side effects to FDA at 9-580-HUM-1176. What other drugs will affect aspirin? Ask [...] drugs may affect aspirin, including prescription and pelg-iwa-khprils medicines, vitamins, and herbal products. Not all [...] to ensure that the information provided by [employer] ('[employer]') is accurate, up-to-date, and complete, but no guarantee is made to that effect. Drug information contained herein may be time sensitive. [employer] information has been compiled for use by healthcare practitioners and consumers in the [place] and therefore [employer] does not warrant that uses outside of the [place] are appropriate, unless specifically indicated otherwise. [employer] drug information does not endorse drugs, diagnose patients or recommend therapy. [employer] drug information is an informational resource designed [...] appropriate for any given patient. [facility] does not assume any responsibility for any aspect of healthcare administered with the aid of information [facility] provides. The information contained herein is not intended to cover all possible uses, directions, precautions, warnings, drug interactions, allergic reactions, or adverse effects. If you have questions about the drugs you are taking, check with your doctor, nurse or pharmacist. Copyright 2627-6719 [facility]. Version: 15.. Revision Date: 06/05/2017. clopidogrel (kloe [...] may report side effects to FDA at 9-708-GHR-4910. What other drugs will affect clopidogrel? Certain other medicines may increase your risk of bleeding, including aspirin. Avoid taking aspirin unless your doctor tells you to. Tell your doctor about all your other medicines, especially: ?? any other medicines to treat or prevent blood clots; ?? a stomach acid manager portable such as omeprazole, Nexium, or Prilosec; ?? an antidepressant; ?? an opioid medication; ?? a blood thinner--warfarin, Coumadin, Jantoven; or ?? NSAIDs (nonsteroidal anti-inflammatory drugs)--ibuprofen (Advil, Motrin), naproxen (Aleve), celecoxib, diclofenac, indomethacin, meloxicam, and others. This list is not complete. Other drugs may affect clopidogrel, including prescription and hcnp-beo-afyuxot medicines, vitamins, and herbal products. Not all [...] to ensure that the information provided by [employer] ('[employer]') is accurate, up-to-date, and complete, but no guarantee is made to that effect. Drug information contained herein may be time sensitive. [employer] information has been compiled for use by healthcare practitioners and consumers in the [place] and therefore [employer] does not warrant that uses outside of the [place] are appropriate, unless specifically indicated otherwise. [employer] drug information does not endorse drugs, diagnose patients or recommend therapy. [employer] drug information is an informational resource designed [...] appropriate for any given patient. [facility] does not assume any responsibility for any aspect of healthcare administered with the aid of information [facility] provides. The information contained herein is not intended to cover all possible uses, directions, precautions, warnings, drug interactions, allergic reactions, or adverse effects. If you have questions about the drugs you are taking, check with your doctor, nurse or pharmacist. Copyright 2735-7181 [employer]. Version: 15.. Revision Date: 12/25/2017. carvedilol (HEIDY [...] may report side effects to FDA at 2-703-YBC-3149. What other drugs will affect carvedilol? Sometimes it is not safe to use certain medications at the same time. Some drugs can affect your blood levels of other drugs you take, which may increase side effects or make the medications less effective. Other drugs may affect carvedilol, including prescription and cbjp-zmd-jxbkkpq medicines, vitamins, and herbal products. Tell your doctor about all your current medicines and any medicine you start or stop using. Where can I get more information? Your pharmacist can provide more information about carvedilol. Electronically signed by Shay Bernardo Conversion Coin Machine Service Repairer Tr[employer]ner at 06/23/2022 11:55 AM CDT documented in this encounter Plan of Treatment Not on file documented as of this encounter Visit Diagnoses Not on filedocumented in this encounter
--- OUTSIDE RECORDS SUMMARY | 2024-11-28 11:19 | XMS_ITS | Encounter Summary ---
Author Organization [facility] Address [address] [place] [address] Care Team Providers Care Auto Body Mechanic Apprentice Name Role Phone Eric Maria MD Primary Care Provider Encounter Details Date Type Department Care Team (Late st Contact Info) Description 05/26/2024 Orders Only External Location [address] [place] [address] Provider, External Social History Tobacco Use Types [...] Description 01/23/2025 9:45 AM EST Office Visit [facility] [address], [address] [place] [address] Jennifer Barber, RADIOISOTOPE TECHNOLOGIST, DNP [address] [place] [address] 02/28/2025 9:00 AM EST Office Visit [facility] [address], [address] [place] [address] Chu Null MD [address] [place] [address] 09/11/2025 10:00 AM EDT Ancillary Procedure [facility] Medicine Specialties [address], [address] [place] [address] 09/11/2025 11:00 AM EDT Office Visit [place] [id number] [place] [address] Jeff Longoria MD [address] [place] [address] documented as of this encounter [...] documented as of this encounter Care Teams Auto Body Mechanic Apprentice Relationship Specialty Start Date End Date Erci Maria MD [address] [place] [address] PCP - General 11/04/20 documented as of this encounter
--- OUTSIDE RECORDS SUMMARY | 2024-11-28 11:19 | XMS_ITS | Clinical Summary ---
Author Organization [employer] ([place], [place], [place], [place]) Address [address] [place] [address] Care Team Providers Care Chief Fishery Division Name Role Phone Unavailable Primary Care Provider [...]
--- OUTSIDE RECORDS SUMMARY | 2024-11-28 11:19 | XMS_ITS | Encounter Summary ---
Author Organization [employer] ([place], [place], [place], [place]) Address [address] [place] [address] Care Team Providers Care Chlorinator Name Role Phone Unavailable Primary Care Provider Unavailabl e Encounter Details Date Type Department Care Team (Late st Contact Info) Description 01/11/2019 Transcribed Document [facility] [place] [address] [place] [address] ProviderJose MD [address] [place], [place] [id number] Social History Tobacco Use Types Packs/Day Years Used Date Smoking Tobacco: Never Assessed Sex and Gender Information Value Date Recorded Sex Assigned at Not on file Legal Sex Male 2:31 PM CDT Gender Identity Not on file Sexual Orientation Not on file documented as of this encounter Miscellaneous Notes * Cerner Conversion Note - Historical ProviderMD - 01/11/2019 3:57 PM FLOOR SANDING MACHINE OPERATOR Nursing Discharge Summary Entered On: 01/11/2019 15:58 EST Performed On: 01/11/2019 15:57 EST by Jailene Calvillo pheresis nurse Documentation Discharge Date/Time : 01/11/2019 15:50 EST [...] - 01/11/2019 15:57 EST Electronically signed by [facility] Conversion Case Hardener Cerner at 06/23/2022 11:58 AM CDT documented in this encounter Plan of Treatment Not on file documented as of this encounter Visit Diagnoses Not on filedocumented in this encounter
--- OUTSIDE RECORDS SUMMARY | 2024-11-28 11:19 | XMS_ITS | Referral Summary ---
Author Organization [employer] ([place], [place], [place], [place]) Address [address] [place] [address] Care Team Providers Care Ship Engines Operating Engineer Name Role Phone Unavailable Primary Care [...]
--- OUTSIDE RECORDS SUMMARY | 2024-11-28 11:19 | XMS_ITS | Encounter Summary ---
Author Organization [employer] ([place], [place], [place], [place]) Address [address] [place] [address] Care Team Providers Care Continuous Yarn Dyeing Machine Operator Name Role Phone Unavailable Primary Care Provider Unavailabl e Encounter Details Date Type Department Care Team (Late st Contact Info) Description 01/10/2019 Transcribed Document [facility] Family Medicine [address] [place] [address] ProviderJose MD [address] [place] [address] Social History Tobacco Use Types Packs/Day Years Used Date Smoking Tobacco: Never Assessed Sex and Gender Information Value Date Recorded Sex Assigned at Not on file Legal Sex Male 2:31 PM CDT Gender Identity Not on file Sexual Orientation Not on file documented as of this encounter Miscellaneous Notes * Cerner Conversion Note - Historical ProviderMD - 01/10/2019 5:00 AM BOY'S ADVISER Height and Weight, Routine Entered On: 01/10/2019 6:08 EST Performed On: 01/10/2019 5:00 EST by Mitesh Hanson Cna I Height and Weight, Routine Routine Weight Source : Standing scale Routine Weight Entry Format : Silver Routine Weight, Pounds : 165 lb Routine Weight, Ounces : 8 oz Routine Weight Calculation : 75.23 kg Height Source : Stated Height Entry Format : Silver Height, Feet : 5 ft Height, Inches : 9 Inch Clinical Height : 175.26 cm Body Surface Area (BSA), Routine : 1.91 m2 Body Mass Index (BMI), Routine : 24.49 kg/m2 Mitesh Hanson Cna I - 01/10/2019 6:08 EST Electronically signed by [facility] Conversion Child Life Therapist Cerner at 06/23/2022 12:05 PM CDT documented in this encounter Plan of Treatment Not on file documented as of this encounter Visit Diagnoses Not on filedocumented in this encounter
--- OUTSIDE RECORDS SUMMARY | 2024-11-28 11:19 | XMS_ITS | Encounter Summary ---
Author Organization [facility] Address [address] [place] [address] Care Team Providers Care Prints And Drawings Curator Name Role Phone Eric Maria MD Primary Care Provider Encounter Details Date Type Department Care Team (Late st Contact Info) Description 05/25/2024 Orders Only External Location [address] [place] [address] Provider, External Social History Tobacco Use Types [...] Description 01/23/2025 9:45 AM EST Office Visit [place] [facility] [address] [place] [address] Jennifer Barber, HALFTONE OPERATOR, DNP [address] [place] [address] 02/28/2025 9:00 AM EST Office Visit [facility] [address], [address] [place] [address] Chu Null MD [address] [place] [address] 09/11/2025 10:00 AM EDT Ancillary Procedure [facility] Medicine Specialties [address] [place] [address] 09/11/2025 11:00 AM EDT Office Visit [facility] [address] [place] [address] Jeff Longoria MD [address] [place] [address] documented as of this encounter [...] documented as of this encounter Care Teams Prints And Drawings Curator Relationship Specialty Start Date End Date Eric Maria MD [address] [place] [address] PCP - General 11/04/20 documented as of this encounter
--- OUTSIDE RECORDS SUMMARY | 2024-11-28 11:19 | XMS_ITS | Encounter Summary ---
Author Organization [employer] ([place], [place], [place], [place]) Address [address] [place] [address] Care Team Providers Care Hide Washer Name Role Phone Unavailable Primary Care Provider Unavailmacario e Encounter Details Date Type Department Care Team (Late st Contact Info) Description 01/10/2019 Transcribed Document [facility] [place] [facility] [address] [place] [address] ProviderJose MD [address] [place], [place] [id number] Social History Tobacco Use Types Packs/Day Years Used Date Smoking Tobacco: Never Assessed Sex and Gender Information Value Date Recorded Sex Assigned at Not on file Legal Sex Male 2:31 PM CDT Gender Identity Not on file Sexual Orientation Not on file documented as of this encounter Miscellaneous Notes * Cerner Conversion Note - Historical ProviderMD - 01/10/2019 2:00 AM DIRECTOR INDUSTRIAL Link Trainer Maintenance Man Details Entered On: 01/10/2019 1:28 EST Performed [...] Analy Mckeon RN - 01/10/2019 1:28 EST Electronically signed by Shay Bernardo Conversion Community Relations Specialist Cerner at 06/23/2022 12:04 PM CDT documented in this encounter Plan of Treatment Not on file documented as of this encounter Visit Diagnoses Not on filedocumented in this encounter
--- OUTSIDE RECORDS SUMMARY | 2024-11-28 11:19 | XMS_ITS | Encounter Summary ---
Author Organization [facility] Address [address] [place] [address] Care Team Providers Care System Consultant Name Role Phone Eric Maria MD Primary Care Provider Encounter Details Date Type Department Care Team (Late st Contact Info) Description 05/25/2024 Orders Only External Location [address] [place] [address] Vicky Sapp MD [address] [place] [address] Social History Tobacco Use Types Packs/Day Years [...] Visit [place] [facility] [address] [place] [phone] Jennifer Barber, RECORD TESTER, DNP [address] [place] [address] 02/28/2025 9:00 AM EST Office Visit [facility] [address] [place] [address] Chu Null MD [address] [place] [address] 09/11/2025 10:00 AM EDT Ancillary Procedure [facility] [address] [place] [address] 09/11/2025 11:00 AM EDT Office Visit [facility] [address] [place] [address] Jeff Longoria MD [address] [place] [address] documented as of this encounter Procedures Procedure [...] documented as of this encounter Care Teams System Consultant Relationship Specialty Start Date End Date Eric Maria MD [address] [place] [address] PCP - General 11/04/20 documented as of this encounter
--- OUTSIDE RECORDS SUMMARY | 2024-11-28 11:19 | XMS_ITS | Encounter Summary ---
Author Organization [facility] Address [address] [place] [address] Care Team Providers Care Tool And Die Maker/Designer Name Role Phone Eric Maria MD Primary Care Provider Encounter Details Date Type Department Care Team (Late st Contact Info) Description 05/25/2024 Orders Only External Location [address] [place] [address] Provider, External Social History Tobacco Use Types [...] Description 01/23/2025 9:45 AM EST Office Visit [facility] [address] [place] [address] Jennifer Barber, PUBLIC EMPLOYMENT MEDIATOR, DNP [address] [place] [address] 02/28/2025 9:00 AM EST Office Visit [facility] [address] [place] [address] Chu Null MD [address] [place] [address] 09/11/2025 10:00 AM EDT Ancillary Procedure [facility] Medicine Specialties [address], [address] [place] [address] 09/11/2025 11:00 AM EDT Office Visit [place] [address] [place] [address] Jeff Longoria MD [address] [place] [address] documented as of this encounter [...] documented as of this encounter Care Teams Tool And Die Maker/Designer Relationship Specialty Start Date End Date Eric Maria MD [address] [place] [address] PCP - General 11/04/20 documented as of this encounter
--- OUTSIDE RECORDS SUMMARY | 2024-11-28 11:19 | XMS_ITS | Encounter Summary ---
Author Organization [employer] ([place], [place], [place], [place]) Address [address] [place] [address] Care Team Providers Care Culinary Internship Name Role Phone Unavailable Primary Care Provider Unavailabl e Encounter Details Date Type Department Care Team (Late st Contact Info) Description 01/10/2019 Transcribed Document [facility] Family Medicine [address] [place] [address] ProviderJose MD [address] [place] [address] Social History Tobacco Use Types Packs/Day Years Used Date Smoking Tobacco: Never Assessed Sex and Gender Information Value Date Recorded Sex Assigned at Not on file Legal Sex Male 2:31 PM CDT Gender Identity Not on file Sexual Orientation Not on file documented as of this encounter Miscellaneous Notes * [employer]ner Conversion Note - Historical ProviderMD - 01/10/2019 9:24 AM ELECTRONICS DEPARTMENT MANAGER Therapy Screen, OT Entered On: 01/10/2019 11:16 [...]
--- OUTSIDE RECORDS SUMMARY | 2024-11-28 11:20 | XMS_ITS | Encounter Summary ---
Author Organization [employer] ([place], [place], [place], [place]) Address [address] [place] [address] Care Team Providers Care Java Designer Name Role Phone Unavailable Primary Care Provider Unavailabl e Encounter Details Date Type Department Care Team (Late st Contact Info) Description 01/10/2019 Transcribed Document [facility] [place] [address] [place] [address] ProviderJose MD [address] [place], [place] [id number] Social History Tobacco Use Types Packs/Day Years Used Date Smoking Tobacco: Never Assessed Sex and Gender Information Value Date Recorded Sex Assigned at Not on file Legal Sex Male 2:31 PM CDT Gender Identity Not on file Sexual Orientation Not on file documented as of this encounter Miscellaneous Notes * Cerner Conversion Note - Jose Stokes MD - 01/10/2019 9:38 PM HIGH SCHOOL CHEMISTRY TEACHER Rapid Response Team Documentation Entered On: 01/10/2019 [...] change in location/level of care Rapid Response Java Designer #1 : Shital Martins, RN Shital Martins, RN - 01/10/2019 21:38 EST Electronically signed by Az, [facility] Conversion Analysis Manager Cerner at 06/23/2022 11:55 AM CDT documented in this encounter Plan of Treatment Not on file documented as of this encounter Visit Diagnoses Not on filedocumented in this encounter
--- OUTSIDE RECORDS SUMMARY | 2024-11-28 11:20 | XMS_ITS | Encounter Summary ---
Author Organization [employer] ([place], [place], [place], [place]) Address [address] [place] [address] Care Team Providers Care Universal Winding Machine Operator Name Role Phone Unavailable Primary Care Provider Unavailabl e Encounter Details Date Type Department Care Team (Late st Contact Info) Description 01/09/2019 Transcribed Document [facility] [place] [address] [place] [address] ProviderJose MD [address] [place], [place] [id number] Social History Tobacco Use Types Packs/Day Years Used Date Smoking Tobacco: Never Assessed Sex and Gender Information Value Date Recorded Sex Assigned at Not on file Legal Sex Male 2:31 PM CDT Gender Identity Not on file Sexual Orientation Not on file documented as of this encounter Miscellaneous Notes * Cerner Conversion Note - Historical ProviderMD - 01/09/2019 4:39 PM KNITTED GARMENT FINISHER Cardiac and Pulmonary Outpatient [facility] Entered On: 01/17/2019 13:47 EST Performed On: 01/09/2019 16:39 EST by ADELAIDE CHOI RN Cardiac and Pulmonary Outpatient [facility] Cardiac Outpatient Rehab Evaluation Comment : Order faxed to [facility] due to pts location. ADELAIDE CHOI RN - 01/17/2019 13:46 EST Electronically signed by Az [facility] Conversion Director Dance Cerner at 06/23/2022 12:00 PM CDT documented in this encounter Plan of Treatment Not on file documented as of this encounter Visit Diagnoses Not on filedocumented in this encounter
--- OUTSIDE RECORDS SUMMARY | 2024-11-28 11:20 | XMS_ITS | Encounter Summary ---
Author Organization [employer] ([place], [place], [place], [place]) Address [address] [place] [address] Care Team Providers Care Bowl Topper Name Role Phone Unavailable Primary Care Provider Unavailabl e Encounter Details Date Type Department Care Team (Late st Contact Info) Description 01/10/2019 Transcribed Document [facility] [place] [address] [place] [address] ProviderJose MD [address] [place], [place] [id number] Social History Tobacco Use Types Packs/Day Years Used Date Smoking Tobacco: Never Assessed Sex and Gender Information Value Date Recorded Sex Assigned at Not on file Legal Sex Male 2:31 PM CDT Gender Identity Not on file Sexual Orientation Not on file documented as of this encounter Miscellaneous Notes * Cerner Conversion Note - Historical ProviderMD - 01/10/2019 9:[address] [facility] PT Charges Entered On: 01/10/2019 [...]
--- OUTSIDE RECORDS SUMMARY | 2024-11-28 11:20 | XMS_ITS | Encounter Summary ---
Author Organization [employer] ([place], [place], [place], [place]) Address [address] [place] [address] Care Team Providers Care Electric Cutter Operator Name Role Phone Unavailable Primary Care Provider Unavailabl e Encounter Details Date Type Department Care Team (Late st Contact Info) Description 01/11/2019 Transcribed Document [facility] [place] [address] [place] [address] ProviderJose MD [address] [place], [place] [phone] Social History Tobacco Use Types Packs/Day Years Used Date Smoking Tobacco: Never Assessed Sex and Gender Information Value Date Recorded Sex Assigned at Not on file Legal Sex Male 2:31 PM CDT Gender Identity Not on file Sexual Orientation Not on file documented as of this encounter Miscellaneous Notes * Cerner Conversion Note - Jose Stokes MD - 01/11/2019 3:23 PM GINNING OPERATOR Patient Education Materials Follows: Heart-Healthy Eating Plan [...] foods can I eat? Grains Breads, including Brazilian, white, chencho, wheat, raisin, rye, oatmeal, and French. Tortillas that are neither fried nor made with lard or trans fat. Low-fat rolls, including hotdog and hamburger buns and Mongolian muffins. Biscuits. Muffins. Waffles. Pancakes. Light popcorn. Whole-grain cereals. Flatbread. [place] toast. Pretzels. Breadsticks. Rusks. Low-fat snacks. Low-fat [...] cooking, baking, salads, and as spreads. Other Fowler powder. Coffee and tea. All seasonings and [...] cottage cheese. Whole-milk cheeses, including blue (bettye), [place] Rajendra, Brie, Antelmo, Japanese, Havarti, [place] Citizen, cheddar, Camembert, and Patrick. Whole or 2% milk that is liquid, [...] that has suet, meat fat, or shortening. Fowler butter, hydrogenated oils, palm oil, coconut oil, [...] 08/21/2012 Document Revised: 07/28/2016 Document Reviewed: 08/14/2014 [employer] Interactive Patient Education ? 2019 Matchbook. Radial Site Care Refer to this sheet [...] 03/25/2011 Document Revised: 07/28/2016 Document Reviewed: 09/08/2014 [employer] Interactive Patient Education ? 2019 Elsevier Inc. [...] and water are not available, use hand vba developer. ? Change your dressing as told by [...] such as diabetes. General instructions ??? Take tufo-ghq-ajgwntc and prescription medicines only as told by [...] 09/09/2005 Document Revised: 11/17/2016 Document Reviewed: 11/17/2016 [employer] Interactive Patient Education ? 2019 [employer] Inc. Non-ST Segment Elevation Heart Attack A [...] 01/28/2015 Elsevier Interactive Patient Education ? 2017 [employer] Inc[employer] documented in this encounter Plan of Treatment Not on file documented as of this encounter Visit Diagnoses Not on filedocumented in this encounter
--- OUTSIDE RECORDS SUMMARY | 2024-11-28 11:20 | XMS_ITS | Encounter Summary ---
Author Organization [employer] ([place], [place], [place], [place]) Address [address] [place] [address] Care Team Providers Care Flat Folding Machine Operator Name Role Phone Unavailable Primary Care Provider Unavailabl e Encounter Details Date Type Department Care Team (Late st Contact Info) Description 01/09/2019 Transcribed Document [facility] [place] Medicine [address] [place] [address] ProviderJose MD [address] [place], [place] [phone] Social History Tobacco Use Types Packs/Day Years Used Date Smoking Tobacco: Never Assessed Sex and Gender Information Value Date Recorded Sex Assigned at Not on file Legal Sex Male 2:31 PM CDT Gender Identity Not on file Sexual Orientation Not on file documented as of this encounter Miscellaneous Notes * Cerner Conversion Note - Historical ProviderMD - 01/09/2019 4:03 PM CARRIER PACKER Admission History, Adult Entered On: 01/09/2019 16:47 [...] Nas Support Person/Pt Rep Contact Information : [phone] Want Family/Rep/Phys Notified of Admit : No Emergency Contact #1 : Noemi Pollock Emergency Contact #1 Emergency Contact #1 Relationship : spouse Emergency Contact #2 : Minal Bernardo Emergency Contact #2 Emergency Contact #2 Relationship : daughter Primary Language : [place] Preferred Communication Mode : Verbal Communication Barrier [...] Scale Risk Level : 0-24 Low Risk Beverly Fall Interventions : Adequate lighting, Assistive devices [...] Source : Stated Height Entry Format : [place] Height, Feet : 5 ft(Converted to: 152 cm, 60 Inch) Height, Inches : 9 Inch(Converted to: 0 ft 9 Inch, 22.86 cm) Clinical Height : 175.26 cm Body Surface Area (BSA) : 1.92 m2 Body Mass Index : 24.9 kg/m2 (HI) [place] Body Weight : 70 kg Jailene Calvillo RN - 01/09/2019 19:02 EST Weight Source : Standing scale Weight Entry Format : [place] Clinical Dosing Weight : 76.53 kg Weight, [...]
--- OUTSIDE RECORDS SUMMARY | 2024-11-28 11:20 | XMS_ITS | Encounter Summary ---
Author Organization [employer] ([place], [place], [place], [place]) Address [address] [place] [address] Care Team Providers Care Photographer Still Name Role Phone Unavailable Primary Care Provider Unavailabl e Encounter Details Date Type Department Care Team (Late st Contact Info) Description 01/11/[address] [facility] [place] [address] [place] [address] ProviderJose MD [address] [place], [place] [phone] Social History Tobacco Use Types Packs/Day Years Used Date Smoking Tobacco: Never Assessed Sex and Gender Information Value Date Recorded Sex Assigned at Not on file Legal Sex Male 2:31 PM CDT Gender Identity Not on file Sexual Orientation Not on file documented as of this encounter Miscellaneous Notes * Cerner Conversion Note - Jose Stokes MD - 01/11/2019 10:04 AM ALUMNI RELATIONS MANAGER UM Authorization Entered On: 01/11/2019 10:05 EST Performed On: 01/11/2019 10:04 EST by COLBY FABIAN RN-Utilization Review Primary Insurance Authorization Authorization and Policy Numbers : Insurance 1 Health Plan: R Policy Number: [id number] Authorization Number: Insurance 2 Health Plan: MEDICARE Policy Number: [id number] Authorization Number: Insurance Primary Name : [facility] [id number] Authorization Status-Primary : Pending clinicals Authorization Fax Number-Primary : [phone] Auth/Referral Phone Number-Primary : [phone] Auth/Referral Contact Name-Primary : Loren Reference Number-Primary : [id number] Authorized Service Begin Date-Primary : 01/11/2019 EST Authorization Comments-Primary : rec'd call from Loren requesting clinicals be faxed to her [phone] fax [phone] Historical Authorization Comments-Primary : Comment 1: Auth initiated on [employer] portal. Awaiting call for clinicals. (KATHARINE MOREAU, Rn-Utilization Review 01/10/2019 10:02) COLBY FABIAN RN-Utilization Review - 01/11/2019 10:04 EST Electronically signed by Az [facility] Conversion Fuel Cell Systems Engineer Cerner at 06/23/2022 12:02 PM CDT documented in this encounter Plan of Treatment Not on file documented as of this encounter Visit Diagnoses Not on filedocumented in this encounter
--- OUTSIDE RECORDS SUMMARY | 2024-11-28 11:20 | XMS_ITS | Encounter Summary ---
Author Organization [employer] ([place], [place], [place], [place]) Address [address] [place] [address] Care Team Providers Care Operations Research Group Manager Name Role Phone Unavailable Primary Care Provider Unavailabl e Encounter Details Date Type Department Care Team (Late st Contact Info) Description 01/09/2019 Transcribed Document [facility] [place] [address] [place] [address] ProviderJose MD [address] [place], [place] [phone] Social History Tobacco Use Types Packs/Day Years Used Date Smoking Tobacco: Never Assessed Sex and Gender Information Value Date Recorded Sex Assigned at Not on file Legal Sex Male 2:31 PM CDT Gender Identity Not on file Sexual Orientation Not on file documented as of this encounter Miscellaneous Notes * Cerner Conversion Note - Jose ProviderMD - 01/09/2019 4:39 PM SEARCH DIRECTOR Pain Assessment Entered On: 01/11/2019 0:03 EST [...]
--- OUTSIDE RECORDS SUMMARY | 2024-11-28 11:20 | XMS_ITS | Encounter Summary ---
Author Organization [employer] ([place], [place], [place], [place]) Address [address] [place] [address] Care Team Providers Care Senior Back End Java Developer Name Role Phone Unavailable Primary Care Provider Unavailabl e Encounter Details Date Type Department Care Team (Late st Contact Info) Description 01/10/2019 Transcribed Document [facility] Family Medicine [address] [place] [address] ProviderJose MD [address] [place] [address] Social History Tobacco Use Types Packs/Day Years Used Date Smoking Tobacco: Never Assessed Sex and Gender Information Value Date Recorded Sex Assigned at Not on file Legal Sex Male 2:31 PM CDT Gender Identity Not on file Sexual Orientation Not on file documented as of this encounter Miscellaneous Notes * Cerner Conversion Note - Historical ProviderMD - 01/10/2019 5:00 AM SLD INCLUSION TEACHER Chart Check - Review Order Profile Entered [...]
--- OUTSIDE RECORDS SUMMARY | 2024-11-28 11:20 | XMS_ITS | Encounter Summary ---
Author Organization [employer] ([place], [place], [place], [place]) Address [address] [place] [address] Care Team Providers Care Metal Coater Name Role Phone Unavailable Primary Care Provider Unavailabl e Encounter Details Date Type Department Care Team (Late st Contact Info) Description 01/10/2019 Transcribed Document [facility] [place] [address] [place] [address] ProviderJose MD [address] [place] [address] Social History Tobacco Use Types Packs/Day Years Used Date Smoking Tobacco: Never Assessed Sex and Gender Information Value Date Recorded Sex Assigned at Not on file Legal Sex Male 2:31 PM CDT Gender Identity Not on file Sexual Orientation Not on file documented as of this encounter Miscellaneous Notes * Cerner Conversion Note - Historical ProviderMD - 01/10/2019 7:02 AM LABORER STORES Event Note Entered On: 01/10/2019 7:03 EST [...]
--- OUTSIDE RECORDS SUMMARY | 2024-11-28 11:20 | XMS_ITS | Encounter Summary ---
Author Organization [employer] ([place], [place], [place], [place]) Address [address] [place] [address] Care Team Providers Care Director Epidemiology Name Role Phone Unavailable Primary Care Provider Unavailabl e Encounter Details Date Type Department Care Team (Late st Contact Info) Description 01/09/2019 Transcribed Document [facility] [place] [address] [place] [address] ProviderJose MD [address] [place] [address] Social History Tobacco Use Types Packs/Day Years Used Date Smoking Tobacco: Never Assessed Sex and Gender Information Value Date Recorded Sex Assigned at Not on file Legal Sex Male 2:31 PM CDT Gender Identity Not on file Sexual Orientation Not on file documented as of this encounter Miscellaneous Notes * Cerner Conversion Note - Jose ProviderMD - 01/09/2019 4:39 PM DIRECTOR PROJECT MANAGEMENT Nutrition Assessment Entered On: 01/10/2019 11:30 EST [...] pain, non-STEMI PMH: CAD, questionable hx of MT, HTN, DM type 2, hypercholesterolemia, CVA Meds: [...]
--- OUTSIDE RECORDS SUMMARY | 2024-11-28 11:20 | XMS_ITS | Encounter Summary ---
Author Organization [employer] ([place], [place], [place], [place]) Address [address] [place] [address] Care Team Providers Care Multicraft Operator Name Role Phone Unavailable Primary Care Provider Unavailabl e Encounter Details Date Type Department Care Team (Late st Contact Info) Description 01/09/2019 Transcribed Document [facility] [place] [address] [place] [address] ProviderJose MD [address] [place], [place] [phone] Social History Tobacco Use Types Packs/Day Years Used Date Smoking Tobacco: Never Assessed Sex and Gender Information Value Date Recorded Sex Assigned at Not on file Legal Sex Male 2:31 PM CDT Gender Identity Not on file Sexual Orientation Not on file documented as of this encounter Miscellaneous Notes * Cerner Conversion Note - Historical ProviderMD - 01/09/2019 6:30 PM DENTAL INSURANCE BILLER Event Note Entered On: 01/09/2019 21:44 EST [...] 01/09/2019 21:42 EST Electronically signed by Az [facility] Conversion Credit Control Administrator Cerner at 06/23/2022 12:03 PM CDT documented in this encounter Plan of Treatment Not on file documented as of this encounter Visit Diagnoses Not on filedocumented in this encounter
--- OUTSIDE RECORDS SUMMARY | 2024-11-28 11:20 | XMS_ITS | Encounter Summary ---
Author Organization [employer] ([place], [place], [place], [place]) Address [address] [place] [address] Care Team Providers Care Hogshead Roller Name Role Phone Unavailable Primary Care Provider Unavailabl e Encounter Details Date Type Department Care Team (Late st Contact Info) Description 01/09/2019 Transcribed Document [facility] [place] [address] [place] [address] ProviderJose MD [address] [place], [place] [address] Social History Tobacco Use Types Packs/Day Years Used Date Smoking Tobacco: Never Assessed Sex and Gender Information Value Date Recorded Sex Assigned at Not on file Legal Sex Male 2:31 PM CDT Gender Identity Not on file Sexual Orientation Not on file documented as of this encounter Miscellaneous Notes * Cerner Conversion Note - Jose ProviderMD - 01/09/2019 4:39 PM TONE CABINET ASSEMBLER Pain Assessment Entered On: 01/09/2019 21:12 EST [...]
--- OUTSIDE RECORDS SUMMARY | 2024-11-28 11:20 | XMS_ITS | Encounter Summary ---
Author Organization [employer] ([place], [place], [place], [place]) Address [address] [place] [address] Care Team Providers Care Caustic Strength Inspector Name Role Phone Unavailable Primary Care Provider Unavailabl e Encounter Details Date Type Department Care Team (Late st Contact Info) Description 01/10/2019 Transcribed Document [facility] [place] Family [place] [address] [place] [address] ProviderJose MD [address] [place], [place] [phone] Social History Tobacco Use Types Packs/Day Years Used Date Smoking Tobacco: Never Assessed Sex and Gender Information Value Date Recorded Sex Assigned at Not on file Legal Sex Male 2:31 PM CDT Gender Identity Not on file Sexual Orientation Not on file documented as of this encounter Miscellaneous Notes * Cerner Conversion Note - Historical ProviderMD - 01/10/2019 11:[address] [facility] OT Charges Entered On: 01/10/2019 11:16 EST Performed On: 01/10/2019 11:16 EST by KIM GUZMAN OTR/Jamilah Loving OT Charges Screen For Extension Specialist : 1 KIM GUZMAN OTR/Jamilah - 01/10/2019 11:16 EST documented in this encounter Plan of Treatment Not on file documented as of this encounter Visit Diagnoses Not on filedocumented in this encounter
--- OUTSIDE RECORDS SUMMARY | 2024-11-28 11:20 | XMS_ITS | Encounter Summary ---
Author Organization [employer] ([place], [place], [place], [place]) Address [address] [place] [address] Care Team Providers Care Soa Engineer Name Role Phone Unavailable Primary Care Provider Unavailabl e Encounter Details Date Type Department Care Team (Late st Contact Info) Description 01/11/2019 Transcribed Document [facility] [place] Family [place] [address] [place] [address] ProviderJose MD [address] [place] [address] Social History Tobacco Use Types Packs/Day Years Used Date Smoking Tobacco: Never Assessed Sex and Gender Information Value Date Recorded Sex Assigned at Not on file Legal Sex Male 2:31 PM CDT Gender Identity Not on file Sexual Orientation Not on file documented as of this encounter Miscellaneous Notes * Cerner Conversion Note - Historical ProviderMD - 01/11/2019 5:00 AM SPECIALTY TRIMMER Chart Check - Review Order Profile Entered On: 01/11/2019 5:12 EST Performed On: 01/11/2019 5:00 EST by Rowan Salcedo RN Chart Check Powerplans Initiated/Discontinued as Appropriate : Yes All Active Orders Reviewed : Yes Rowan Salcedo RN - 01/11/2019 5:12 EST Electronically signed by Az [facility] Conversion Dev Ops Engineer Cerner at 06/23/2022 12:05 PM CDT documented in this encounter Plan of Treatment Not on file documented as of this encounter Visit Diagnoses Not on filedocumented in this encounter
--- OUTSIDE RECORDS SUMMARY | 2024-11-28 11:20 | XMS_ITS | Encounter Summary ---
Author Organization [employer] ([place], [place], [place], [place]) Address [address] [place] [address] Care Team Providers Care Cover Creaser Name Role Phone Unavailable Primary Care Provider Unavailabl e Encounter Details Date Type Department Care Team (Late st Contact Info) Description 01/11/2019 Transcribed Document [facility] [place] Family Medicine [address] [place] [address] ProviderJose MD [address] [place] [address] Social History Tobacco Use Types Packs/Day Years Used Date Smoking Tobacco: Never Assessed Sex and Gender Information Value Date Recorded Sex Assigned at Not on file Legal Sex Male 2:31 PM CDT Gender Identity Not on file Sexual Orientation Not on file documented as of this encounter Miscellaneous Notes * [employer]ner Conversion Note - Historical ProviderMD - 01/11/2019 3:23 PM ENVIRONMENTAL PROGRAMS MANAGER Stroke/Warfarin Instructions Entered On: 01/11/2019 15:23 EST Performed On: 01/11/2019 15:23 EST by Adeline Vasquez RN Stroke/Warfarin Instructions Stroke/TIA Discharge Ins : N/A Warfarin Discharge Ins : N/A Adeline Vasquez RN - 01/11/2019 15:23 EST Electronically signed by Shay Bernardo Conversion Research And Insights Executive [employer] at 06/23/2022 11:58 AM CDT documented in this encounter Plan of Treatment Not on file documented as of this encounter Visit Diagnoses Not on filedocumented in this encounter
--- OUTSIDE RECORDS SUMMARY | 2024-11-28 11:20 | XMS_ITS | Encounter Summary ---
Author Organization [employer] ([place], [place], [place], [place]) Address [address] [place] [address] Care Team Providers Care Dispatch Manager Name Role Phone Unavailable Primary Care Provider Unavailabl e Encounter Details Date Type Department Care Team (Late st Contact Info) Description 01/09/2019 Transcribed Document [facility] [place] [address] [place] [address] ProviderJose MD [address] [place] [phone] Social History Tobacco Use Types Packs/Day Years Used Date Smoking Tobacco: Never Assessed Sex and Gender Information Value Date Recorded Sex Assigned at Not on file Legal Sex Male 2:31 PM CDT Gender Identity Not on file Sexual Orientation Not on file documented as of this encounter Miscellaneous Notes * [employer]ner Conversion Note - Jose Stokes MD - 01/09/2019 4:30 PM MECHANICAL UNIT REPAIRER Patient: KINGSTON POLLOCK Age: 68 years Sex: [...] and he was diagnosed with non-ST elevation MD and transferred here. The patient also had [...] CVA - Cerebrovascular accident / SNOMED CT 113991458 / Confirmed Diabetes mellitus / SNOMED CT 729160473 / Confirmed Hyperlipidemia / SNOMED CT 93520229 / Confirmed Hypertension / SNOMED CT 65572144 / Confirmed, Active Problems (4) CVA - Cerebrovascular accident Diabetes mellitus Hyperlipidemia Hypertension Histories Past Medical History: No active or resolved past medical history items have been selected or recorded., As noted above Coronary artery disease never had a stent. Family History: No family history items have been selected or recorded., Patient does not know his family history Procedure history: Pacemaker ([id number]). Social History Social & Psychosocial Habits Alcohol [...] of motion, Normal strength. Integumentary: Warm, Dry, [place]. Neurologic: Alert, Oriented. Cognition and Speech: Oriented, [...] nephrotoxicity, possible need for emergent CABG/blood transfusion, MD, stroke or . I have discussed risks [...]
--- OUTSIDE RECORDS SUMMARY | 2024-11-28 11:20 | XMS_ITS | Encounter Summary ---
Author Organization [employer] ([place], [place], [place], [place]) Address [address] [place] [address] Care Team Providers Care Atmospheric Drier Tender Name Role Phone Unavailable Primary Care Provider Unavailabl e Encounter Details Date Type Department Care Team (Late st Contact Info) Description 01/10/2019 Transcribed Document [facility] [place] [address] [place] [address] ProviderJose MD [address] [place] [address] Social History Tobacco Use Types Packs/Day Years Used Date Smoking Tobacco: Never Assessed Sex and Gender Information Value Date Recorded Sex Assigned at Not on file Legal Sex Male 2:31 PM CDT Gender Identity Not on file Sexual Orientation Not on file documented as of this encounter Miscellaneous Notes * Cerner Conversion Note - Historical ProviderMD - 01/10/2019 8:05 AM ASSISTANT RESEARCH SCIENTIST Disc Sander Details Entered On: 01/10/2019 8:05 EST Performed On: 01/10/2019 8:05 EST by Adeline Vasqeuz RN Order Details Transport Mode Order Detail [...]
--- OUTSIDE RECORDS SUMMARY | 2024-11-28 11:20 | XMS_ITS | Encounter Summary ---
Author Organization [employer] ([place], [place], [place], [place]) Address [address] [place] [address] Care Team Providers Care Delivery Technician Name Role Phone Unavailable Primary Care Provider Unavailabl e Encounter Details Date Type Department Care Team (Late st Contact Info) Description 01/10/2019 Transcribed Document [facility] [place] [address] [place] [address] ProviderJose MD [address] [place], [place] [address] Social History Tobacco Use Types Packs/Day Years Used Date Smoking Tobacco: Never Assessed Sex and Gender Information Value Date Recorded Sex Assigned at Not on file Legal Sex Male 2:31 PM CDT Gender Identity Not on file Sexual Orientation Not on file documented as of this encounter Miscellaneous Notes * Cerner Conversion Note - Jose ProviderMD - 01/10/2019 10:02 AM ONCOLOGY REGISTRAR UM Authorization Entered On: 01/10/2019 10:04 EST Performed On: 01/10/2019 10:02 EST by KATHARINE MOREAU Rn-Utilization Review Primary Insurance Authorization Authorization and Policy Numbers : Insurance 1 Health Plan: R Policy Number: [id number] Authorization Number: Insurance 2 Health Plan: MEDICARE Policy Number: [id number] Authorization Number: Insurance Primary Name : R Authorization Status-Primary : Pending clinicals Authorized Service Begin Date-Primary : 01/11/2019 EST Authorization Comments-Primary : Auth initiated on [facility] portal. Awaiting call for clinicals. Historical Authorization Comments-Primary : No Authorization Comments Found KATHARINE MOREAU Rn-Utilization Review - 01/10/2019 10:02 EST documented in this encounter Plan of Treatment Not on file documented as of this encounter Visit Diagnoses Not on filedocumented in this encounter
--- OUTSIDE RECORDS SUMMARY | 2024-11-28 11:20 | XMS_ITS | Encounter Summary ---
Author Organization [facility] Address [address] [place] [address] Care Team Providers Care Film Loader Name Role Phone Eric Maria MD Primary Care Provider Encounter Details Date Type Department Care Team (Late st Contact Info) Description 11/21/2024 Telephone [facility] [address] [place] [address] Chu Null MD [address] [place] [address] Social History Tobacco Use Types Packs/Day Years [...] and Family Not on file 06/24/2024 Attends [employer] Not on file 06/24 Active Member [...] the past 12 months has th e Bioxodes, gas, oil, or water [employer] threatened to shut off services in your home? No 06/24/2024 Sex and Gender Information Value Date Recorded Sex Assigned at Male 12/02/2022 10:35 AM EDT Legal Sex Male 7:31 PM EDT Gender Identity Male 12/02/2022 10:35 AM EDT Sexual Orientation Straight 12/02/2022 10 :35 AM EDT documented as of this encounter Miscellaneous Notes * Telephone Encounter - Darline India A - 11/21/2024 10:37 AM EDT Patient Phone Message Reason for Call: Patient spouse calling states pt currently in [facility] since Monday was given 30 bags of potassium along with other issues, please call to advise on plan of care Best contact number and optimal time of day to reach caller: [phone] Note: Please do not reply to this message. Follow-up communication and further actions as a result of this message need to be communicated with the patient directly, if the patient is not active onMyChart. If the patient is active on MyChart, they will receive notification of the communication/outcome via [employer]. documented in this encounter Plan of Treatment Upcoming Encounters Date Type Department Care Team (Late st Contact Info) Description 01/23/2025 9:45 AM EST Office Visit [facility] Medicine Specialties [address] [place] [address] Jennifer Barber APRN, OMAR [address] [place] [address] 02/28/2025 9:00 AM EST Office Visit [facility] [address] [place] [address] Chu Null MD [address] [place] [address] 09/11/2025 10:00 AM EDT Ancillary Procedure [facility] Medicine Specialties [address] [place] [address] 09/11/2025 11:00 AM EDT Office Visit [facility] Medicine Specialties [address] [place] [address] Jeff Longoria MD [address] [place] [address] documented as of this encounter [...] documented as of this encounter Care Teams Film Loader Relationship Specialty Start Date End Date Eric Maria MD [address] [place] [address] PCP - General 11/04/20 documented as of this encounter
--- OUTSIDE RECORDS SUMMARY | 2024-11-28 11:20 | XMS_ITS | Encounter Summary ---
Author Organization [employer] ([place], [place], [place], [place]) Address [address] [place] [address] Care Team Providers Care Senior Producer Name Role Phone Unavailable Primary Care Provider Unavailabl e Encounter Details Date Type Department Care Team (Late st Contact Info) Description 01/11/2019 Transcribed Document [facility] [place] [address] [place] [address] ProviderJose MD [address] [place] [address] Social History Tobacco Use Types Packs/Day Years Used Date Smoking Tobacco: Never Assessed Sex and Gender Information Value Date Recorded Sex Assigned at Not on file Legal Sex Male 2:31 PM CDT Gender Identity Not on file Sexual Orientation Not on file documented as of this encounter Miscellaneous Notes * Cerner Conversion Note - Jose ProviderMD - 01/11/2019 2:58 PM ADMINISTRATIVE PROCESSOR Initial Discharge Planning Entered On: 01/11/2019 15:02 EST Performed On: 01/11/2019 14:58 EST by ADELAIDE QUIROZ, RN-Egg Trayer Initial Assessment I Previously Documented Living Environment : No qualifying data available. Living Situation : Home Patient Lives With : Spouse Is the Patient a Caregiver at Home? 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 : Yes Medical Durable Power of Senior Engineering Associate Name : No Legal Guardian : No ADELAIDE QUIROZ, RN-Egg Trayer - 01/11/2019 14:58 EST Initial Assessment II Sensory and Motor Deficits : None Current Home Treatments and Equipment : None ADELAIDE QUIROZ, RN-Egg Trayer - 01/11/2019 14:58 EST Discharge Needs I Anticipated Discharge Date : 01/11/2019 EST Anticipated Discharge To, CM : Home independently, Home with family care Current Home Treatment/Equipment : Current Home Treatment/Equipment No qualifying data available. Post Acute/Home Treatments : None Documentation Status Complete : Yes ADELAIDE QUIROZ, RN-Egg Trayer - 01/11/2019 14:58 EST Discharge Needs II Professional Skilled Services : Professional Skilled Services No qualifying data available. Needs Assistance with Transportation : No Discharge Options Discussed with Patient : Discharge transportation, DME ADELAIDE QUIROZ, RN-Egg Trayer - 01/11/2019 14:58 EST Narrative Note Narrative Note : Prior to admission patient was independent in all areas. Patient has a pacemaker in place managed by Marco A Gavin in [place]. Patient has had an emotional time this admission as prior to this the patient was seen at the ER at a local place, the hospital in [place] and now here. During this time his tearfully shared with CM it was reported to them by [place] that an oncology consult would be needed due to findings on the CT scans. Home plan. ADELAIDE QUIROZ, RN-Egg Trayer - 01/11/2019 14:58 EST Electronically signed by Shay Bernardo Conversion Supervising Film Or Videotape Editor Steve at 06/23/2022 12:03 PM CDT documented in this encounter Plan of Treatment Not on file documented as of this encounter Visit Diagnoses Not on filedocumented in this encounter
--- OUTSIDE RECORDS SUMMARY | 2024-11-28 11:20 | XMS_ITS | Encounter Summary ---
Author Organization [employer] ([place], [place], [place], [place]) Address [address] [place] [address] Care Team Providers Care Html Web Developer Name Role Phone Unavailable Primary Care Provider Unavailabl e Encounter Details Date Type Department Care Team (Late st Contact Info) Description 01/09/2019 Transcribed Document [facility] [place] Family Medicine [address] [place] [address] ProviderJose MD [address] [place], [place] [id number] Social History Tobacco Use Types Packs/Day Years Used Date Smoking Tobacco: Never Assessed Sex and Gender Information Value Date Recorded Sex Assigned at Not on file Legal Sex Male 2:31 PM CDT Gender Identity Not on file Sexual Orientation Not on file documented as of this encounter Miscellaneous Notes * Cerner Conversion Note - Historical ProviderMD - 01/09/2019 4:39 PM COMMUNITY DEVELOPMENT WORKER Education-Cardiac Topics Entered On: 01/09/2019 21:13 EST Performed On: 01/09/2019 16:39 EST by Jailene Calvillo RN Teaching/Learning Assessment Barriers To Learning : None evident Individuals Taught : Patient, Spouse Readiness to Learn : Uninterested Jailene Calvillo RN - 01/09/2019 21:13 EST Electronically signed by Az [facility] Conversion Reading Assistant Steve at 06/23/2022 11:59 AM CDT documented in this encounter Plan of Treatment Not on file documented as of this encounter Visit Diagnoses Not on filedocumented in this encounter
--- OUTSIDE RECORDS SUMMARY | 2024-11-28 11:20 | XMS_ITS | Encounter Summary ---
Author Organization [employer] ([place], [place], [place], [place]) Address [address] [place] [address] Care Team Providers Care Machine Pie Maker Name Role Phone Unavailable Primary Care Provider Unavailabl e Encounter Details Date Type Department Care Team (Late st Contact Info) Description 01/10/2019 Transcribed Document [facility] [place] [facility] [place] [address] ProviderJose MD [address] [place] [address] Social History Tobacco Use Types Packs/Day Years Used Date Smoking Tobacco: Never Assessed Sex and Gender Information Value Date Recorded Sex Assigned at Not on file Legal Sex Male 2:31 PM CDT Gender Identity Not on file Sexual Orientation Not on file documented as of this encounter Miscellaneous Notes * Cerner Conversion Note - Jose Stokes MD - 01/10/2019 3:28 PM HAND INSPECTOR DATE OF SERVICE: 01/10/2019 PROCEDURES: 1. Left [...] PROCEDURE: The patient was brought to heart micro lab analyst where the right wrist was anesthetized with 1 cc lidocaine. A 6-Vietnamese artery sheath was placed. Landon catheter was advanced, selectively engaged to left and right coronary artery and angiograms were performed. The pigtail catheter was advanced into the left ventricle. Pressures were recorded. Left ventriculogram was performed using 36 cc of contrast PSI. Pigtail was withdrawn. Pullback pressure recorded. Patient was then prepared for angioplasty. Minerav left guide was engaged to left main [...] from 99% to 0%. Flow improved from AMRY grade 2 to MARY grade 3. Total [...] then question of ICD will be raised. /[id number] MD BLAISE Krishnan/TOM / BLAISE / MODL /[id number] documented in this encounter Plan of Treatment Not on file documented as of this encounter Visit Diagnoses Not on filedocumented in this encounter
--- OUTSIDE RECORDS SUMMARY | 2024-11-28 11:20 | XMS_ITS | Encounter Summary ---
Author Organization [employer] ([place], [place], [place], [place]) Address [address] [place] [address] Care Team Providers Care Boilermaking Supervisor Name Role Phone Unavailable Primary Care Provider Unavailabl e Encounter Details Date Type Department Care Team (Late st Contact Info) Description 01/09/2019 Transcribed Document [facility] [place] [address] [place] [address] ProviderJose MD [address] [place], [place] [address] Social History Tobacco Use Types Packs/Day Years Used Date Smoking Tobacco: Never Assessed Sex and Gender Information Value Date Recorded Sex Assigned at Not on file Legal Sex Male 2:31 PM CDT Gender Identity Not on file Sexual Orientation Not on file documented as of this encounter Miscellaneous Notes * Cerner Conversion Note - Historical ProviderMD - 01/09/2019 5:00 PM MARKET DEVELOPMENT MANAGER Chart Check - Review Order Profile Entered On: 01/09/2019 21:12 EST Performed On: 01/09/2019 17:00 EST by Jailene Calvillo RN Chart Check Powerplans Initiated/Discontinued as Appropriate : Not applicable All Active Orders Reviewed : Yes Jailene Calvillo RN - 01/09/2019 21:12 EST Electronically signed by Az [facility] Conversion Lead Shipper Cerner at 06/23/2022 12:04 PM CDT documented in this encounter Plan of Treatment Not on file documented as of this encounter Visit Diagnoses Not on filedocumented in this encounter
--- OUTSIDE RECORDS SUMMARY | 2024-11-28 11:20 | XMS_ITS | Encounter Summary ---
Author Organization [employer] ([place], [place], [place], [place]) Address [address] [place] [address] Care Team Providers Care Metallurgy Laboratory Technician Name Role Phone Unavailable Primary Care Provider Unavailabl e Encounter Details Date Type Department Care Team (Late st Contact Info) Description 01/14/2019 Transcribed Document [facility] [place] [address] [place] [address] ProviderJose MD [address] [place] [address] Social History Tobacco Use Types Packs/Day Years Used Date Smoking Tobacco: Never Assessed Sex and Gender Information Value Date Recorded Sex Assigned at Not on file Legal Sex Male 2:31 PM CDT Gender Identity Not on file Sexual Orientation Not on file documented as of this encounter Miscellaneous Notes * Cerner Conversion Note - Jose Stokes MD - 01/14/2019 2:16 PM SATELLITE TELEVISION INSTALLER UM Authorization Entered On: 01/14/2019 14:17 EST Performed On: 01/14/2019 14:16 EST by COLBY FABIAN RN-Utilization Review Primary Insurance Authorization Authorization and Policy Numbers : Insurance 1 Health Plan: [facility] Policy Number: [id number] Authorization Number: Insurance 2 Health Plan: MEDICARE Policy Number: [id number] Authorization Number: Insurance Primary Name : [facility] [id number] Authorization Status-Primary : Pending clinicals Authorization Fax Number-Primary : [phone] Auth/Referral Phone Number-Primary : [phone] Auth/Referral Contact Name-Primary : Loren Reference Number-Primary : [id number] Authorization Number-Primary : [id number] Number of Days Authorized-Primary : 2 Day(s) Authorized Service Begin Date-Primary : 01/09/2019 EST Authorized Service End Date-Primary : 01/11/2019 EST Authorization Comments-Primary : Approved per loren Historical Authorization Comments-Primary : Comment 1: Clinicals faxed via [employer] to [phone] (KATHARINE MOREAU, Rn-Utilization Review 01/11/2019 11:00) Comment 2: rec'd call from Loren requesting clinicals be faxed to her [phone] fax [phone] (COLBY FABIAN RN-Utilization Review 01/11/2019 10:04) Comment 3: Auth initiated on [facility] portal. Awaiting call for clinicals. (KATHARINE MOREAU, Rn-Utilization Review 01/10/2019 10:02) COLBY FABIAN RN-Utilization Review - 01/14/2019 14:16 EST Electronically signed by Shay Bernardo Conversion Gas Compressor Turbine Operator Cerner at 06/23/2022 11:58 AM CDT documented in this encounter Plan of Treatment Not on file documented as of this encounter Visit Diagnoses Not on filedocumented in this encounter
--- OUTSIDE RECORDS SUMMARY | 2024-11-28 11:20 | XMS_ITS | Encounter Summary ---
Author Organization [employer] ([place], [place], [place], [place]) Address [address] [place] [address] Care Team Providers Care Cloth Finishing Range Back Tender Name Role Phone Unavailable Primary Care Provider Unavailabl e Encounter Details Date Type Department Care Team (Late st Contact Info) Description 01/11/2019 Transcribed Document [facility] [place] Family Medicine [address] [place] [address] ProviderJose MD [address] [place] [id number] Social History Tobacco Use Types Packs/Day Years Used Date Smoking Tobacco: Never Assessed Sex and Gender Information Value Date Recorded Sex Assigned at Not on file Legal Sex Male 2:31 PM CDT Gender Identity Not on file Sexual Orientation Not on file documented as of this encounter Miscellaneous Notes * Cerner Conversion Note - Jose ProviderMD - 01/11/2019 11:48 AM CUTTER WET MACHINE Patient: KINGSTON POLLOCK Age: 68 years Sex: [...] Pain (Mild 1-3) Xarelto: 20 mg, Oral, [id number] Zofran: 4 mg, IV Push, Q6H, PRN: [...] mg tab 20 mg 1 Tab, Oral, [id number] valsartan 40 mg tab 40 mg 1 [...] At risk for sleep apnea / IMO [id number] / Confirmed Atrial fibrillation / SNOMED CT 60303772 / Confirmed Pacemaker / SNOMED CT 5091521573 / Confirmed CAD (coronary artery disease) / SNOMED CT 50651212 / Confirmed CVA - Cerebrovascular accident / SNOMED CT 527918428 / Confirmed Diabetes mellitus / SNOMED CT 056049082 / Confirmed Hyperlipidemia / SNOMED CT 82754517 / Confirmed Hyperlipidemia / SNOMED CT 70875384 / Confirmed Hypertension / SNOMED CT 04672280 / Confirmed Prostate CA / SNOMED CT 8977491515 / Confirmed, Active Problems (10) At risk [...] EST Height Source Stated Height Entry Format [place] Height/Length, PERUVIAN (ft) 5 ft Height/Length PERUVIAN 9 Inch CLINICALHEIGHT 175.26 cm Routine Weight Source Standing scale Routine Weight Entry Format [place] Routine Weight, Pounds 162 lb Routine Weight, Ounces 7 oz Routine Weight Calculation 73.84 kg Body Mass Index (BMI), Routine 24.04 kg/m2 Body Surface Area (BSA), Routine 1.89 m2 01/10/2019 5:00 EST Height Source Stated Height Entry Format [place] Height/Length, PERUVIAN (ft) 5 ft Height/Length PERUVIAN 9 Inch CLINICALHEIGHT 175.26 cm Routine Weight Source Standing scale Routine Weight Entry Format [place] Routine Weight, Pounds 165 lb Routine Weight, [...] Gastrointestinal: Normal bowel sounds. Integumentary: Warm, Dry, [place]. Results Review General results Today's results 01/11/2019 [...] planned for them to see oncology in [facility]. AMS changes -ct head no acute process. [...]
[2024-11-28 11:33] LABS: Hematocrit 33.9 % (42.0-52.0); Hemoglobin 10.7 g/dL (14.1-18.0); Immature Granulocytes % 0.3 %; Mean Corpuscular HGB Conc 31.6 g/dL (31.8-35.4); Mean Corpuscular Hemoglobin 25.8 pg (27.0-31.2); Mean Corpuscular Volume 81.9 fl (80-94); Nucleated Red Blood Cells % 0 %; Platelet Count 115 K/mm3 (142-424); Red Blood Count 4.14 M/mm3 (4.60-6.20); Red Cell Distribution Width-SD 62.6 fL; White Blood Count 3.9 K/mm3 (4.8-10.8)
[2024-11-28] MEDS: ZOLEDRONIC ACID 4 MG in 0.9 % SODIUM CHLORIDE 100 ML 420 MG IV (11:33)
[2024-11-28 11:48] LABS: Albumin Level 3.3 g/dl (3.5-5.0); Chloride 94 mmol/L (98-107); Sodium 132 mmol/L (136-145)
[2024-11-28 11:50] LABS: Alanine Aminotransferase 6 U/L (12-78); Alkaline Phosphatase 124 U/L (38-126); Anion Gap 11.9 mEq/L (5-15); Aspartate Amino Transferase 20 U/L (17-59); Bilirubin,Total 0.6 mg/dl (0.2-1.3); Blood Urea Nitrogen 5 mg/dl (9-20); Carbon Dioxide 29 mmol/L (22.0-30.0); Creatinine,Serum 0.90 mg/dl (0.66-1.25); Estimated Glomerular Filt Rate 82 ml/min (>60); GFR (African American) 100 ML/MIN (>60)
[2024-11-28 11:51] LABS: Albumin/Globulin Ratio 1.3 (1.1-1.8); Calcium 9.6 mg/dl (8.4-10.2); Globulin 2.6 g/dL (1.3-3.2); Glucose 132 mg/dl (74-100); Iron 57 ug/dL (49-181); Magnesium 1.8 mg/dl (1.6-2.3); Total Protein,Serum 5.9 g/dl (6.3-8.2)
[2024-11-28 11:58] LABS: Potassium 2.9 mmoL/L (3.5-5.1)
[2024-11-28 12:00] LABS: Total Iron Binding Capacity 240 ug/dL (261-462)
[2024-11-28] MEDS: LEUPROLIDE 22.5 MG IM (12:00)
[2024-11-28 12:28] LABS: Ferritin 50.8 ng/ml (17.9-464)
[2024-11-28 12:41] LABS: Prostate Specific Ag, Diagnost 3.17 ng/ml (0.0-4.0)
[2024-11-28] MEDS: 0.9 % SODIUM CHLORIDE 100 ML 50 ML IV (13:00)
== END 2024-11-28 23:59 | disposition home or self-care (01) ==
PROVIDERS: PCP Family Medicine; Visit Provider Internal Medicine Medical Oncology
DX: D50.0 Iron deficiency anemia secondary to blood loss (chronic) (principal); C61 Malignant neoplasm of prostate
CPT/HCPCS: 80053; 82728; 83540; 83550; 83735; 84153; 85025; 96366; 96367; 96374; 96402; J3480; J3489; J9217

== ENCOUNTER 2024-12-04 09:46 | Outpatient (CLI) | payer MEDICARE, MEDICAID, SELFPAY ==
--- OUTSIDE RECORDS SUMMARY | 2024-10-24 10:45 | XMS_ITS | Encounter Summary ---
Author Organization [facility] Address [address] [place] [address] Care Team Providers Care Director Revenue Name Role Phone Eric Maria MD Primary Care Provider [phone] Reason for Referral * Consultation (Routine) - Authorized Specialty Diagnoses / Procedures Referred By Manuela munoz Referred To Contact Diagnoses Gastrointestinal hemorrhage, unspecified gastrointestinal hemorrhage type Anemia, unspecified type Jennifer Barber APRN, DNP [address] [facility] [place] [address] Phone: tel: fax: Referral ID Status Reason Start Date Expiration Date V isits Requested Visits Authorized [id number] Authorized 10/24/2024 04/25/2026 1 1 Reason for Visit * Reason Comments Gastrointestinal hemorrhage associated w ith duodenal ulcer * Consultation (Routine) - Closed Specialty Diagnoses / Procedures Referred By Conttimothy t Referred To Contact Gastroenterology Diagnoses Gastrointestinal hemorrhage associated with duodenal ulcer Miguel Fong MD [address] [place] [address] Phone: tel: fax: Referral ID Status Reason Start Date Expiration Date V isits Requested Visits Authorized [id number] Closed Specialty Services Required 07/10/2024 01/09/2026 1 1 Encounter Details Date Type Department Care Team (Latest Contact Info) Description 10/24/2024 10:45 AM EDT Office Visit [facility] [address] [place] [address] Jennifer Barber APRN, DNP [address] [place] [address] Gastrointestinal hemorrhage, unspecified gastrointestinal hemorrhage type (Primary Dx); Anemia, unspecified type; Unintentional weight loss; Healthcare maintenance Social History Tobacco Use Types Packs/Day Years [...] and Family Not on file 06/24/2024 Attends Yazidism Services Not on file 06/24 Active Member [...] any time in the past 12 m [facility], were you homeless or living in [...] Sign Reading Time Taken Comments Blood Pressure 113/72 10/24/2024 10:52 AM EDT Pulse 59 10/24/2024 10:52 AM EDT Temperature 36.7 C (98 F) 10/24/2024 10:52 AM EDT Respiratory Rate - - Oxygen Saturation 98% 10/24/2024 10:52 AM EDT Inhaled Oxygen Concentration - - Weight 62 kg (136 lb 11 oz) 10/24/2024 10:52 AM EDT Height 175.3 cm (5' 9 ) 10/24/2024 10:52 AM EDT Body Mass Index 20.18 10/24/2024 10:52 AM EDT documented in this encounter Miscellaneous Notes * Progress Notes - Jennifer Barber, OBJECTS CONSERVATOR, DNP - 10/24/2024 10:45 AM EDT Outpatient General Gastroenterology and Nutrition Clinic Note: Patient: Gerry Pollock Date of : 1950 Referring provider: Dr. Miguel Fong MD Reason for consultation: Anemia and GI Bleed Chief Complaint Patient presents with Gastrointestinal hemorrhage associated with duodenal ulcer The following portions of the chart were reviewed this encounter and updated as appropriate: Tobacco Allergies Meds Problems Med Hx Surg Hx Fam Hx Subjective: History of Presenting Illness This 74 year-old male patient is seen in consultation today at the request of Dr. Miguel [facility]for [facility] follow-up for Anemia and GI Bleed. PMH significant for CAD, NM x 3, CVA, Depression, T2DM, PHELPS, HTN, Parkinson's Disease, Metastatic Prostate Cancer, Sarcoidosis, and Tremor. Surgical history includes Pacemaker Placement c/b pacemaker lead migration and post-op hemorrhagic pericardial effusion s/p pericardiocentesis, Cardiac Stent Placements, and Cataract Extraction. GI History: Per chart review, the patient was admitted for hospitalization from 06/23/2024 - 07/10/2024 after being transferred from OSH for GIB. Upon presentation, it was noted that the patient had had a left hip fracture 3 weeks prior s/p left hip hemiarthroplasty on 05/30. It was noted the patient had an episode of black stool and an episode of coffee-ground emesis en route to OSH via EMS before transfer to . Pt was also hypotensive upon presentation. He was given 2 units of pRBC, was initiated on Levophed gtt for hemorrhagic shock, and started on Protonix BID. Upon admission, GI was consulted, who performed EGD on 06/26/2024, which revealed multiple non-bleeding ulcerations. Pt's Hgb remained stable during hospitalization. Pt was continued on PPI BID x 8 weeks, followed by once daily after, andthere was recommendation to repeat EGD in 6-8 weeks. GI was consulted again due to ongoing black stools, and a repeat EGD was performed on 07/08/2024, which did not visualize any active bleeding, andalso visualized healing ulceration. A referral to GI was ordered upon discharge for outpatient follow-up. Previous Available Workup: - Labs (07/09/2024) revealed: CBC with stable/improved but low Hgb/Hct (8.6/26.9) otherwise unremarkable, CMP with mildly elevated Alk Phos of 154 otherwise unremarkable, Magnesium decreased at 1.8 - 07/08/2024 EGD: No blood, bleeding lesions or lesions with stigmata of bleeding seen throughout the esophagus, stomach and visualized duodenum; The upper third of the esophagus, middle third of theesophagus and lower third of the esophagus appeared normal. No blood, bleeding lesions or lesions with high- risk stigmata throughout the esophagus; Mild, localized erythematous mucosa in the GE junction (38 cm from the incisors); no bleeding was observed; The cardia, fundus of the stomach and body of the stomach appeared normal. Previous ulcers in the gastric antrum and prepyloric stomach were now clean-based erosions. No blood was seen throughout the stomach; Marked improvement in area of ulceration within duodenal bulb. Prior ulceration along sweep now superficial with no high risk featuresof bleeding. Duodenal bulb ulcer now consistent with erosion--Recommendation to continue high dose PPI BID and start additional Carafate to help promote ulcer healing - 06/26/2024 EGD: Grade B esophagitis with mucosal breaks measuring 5 mm or more not continuous between folds, covering less than 75% of the circumference in the middle third of the esophagus and lower third of the esophagus; Multiple small ulcers in the body of the stomach and antrum with clean base (Clarence III); Single small ulcer in the duodenal bulb with clean base (Clarence III); Single large, cratered ulcer in the duodenal sweep with flat pigmented spot (Clarence IIC), approximately 2cm insize; The 2nd part of the duodenum appeared normal. This Visit: Today, patient presents overall feeling okay, has had some recent health set- backs [id number], causing him to have a few additional ED visits at OSH since last hospitalization, including issues with heart failure, fluid buildup around lungs, and decreased Magnesium and Potassium levels. Pt continues to have an overall decreased appetite and has continued losing weight unintentionally. Care iscomplicated r/t his multiple chronic health issues, especially including his metastasized prostate cancer, cardiac diagnoses, and Parkinson's. Pt and his , who assists pt today during appt, were able to provide recent lab results that were completed at OSH ([facility]) on 10/15/2024 and 10/17/2024 and not available for review in his EHR, which I was able to review today, and they revealed: Iron Panel all WNL, Folate WNL, CBC with improving (trending upward) Hgb/Hct of 10.2/35.3% otherwise unremarkable, CMP with mildly elevated Alk Phos of 139, and TSH WNL. Pt denies any ongoing symptoms of GI bleeding. No longer having black stools, and also denies any presence of bright red blood in stool. Currently having a BM once daily on average, consisting of soft/formed stool. Denies any episodes of diarrhea/loose stools. Not currently taking any iron supplementation. Has also continued taking Protonix 40 mg PO BID since hospital discharge, and additionally has continued taking Carafate 10 mL PO QID. Pt denies any acid reflux/heartburn symptoms. Denies any N/V. Denies any abdominal pain. Has now become established with a Compensation Associate at [facility] since hospital discharge, and is now following with them. Pt states he has been taken off Xarelto and Plavix, and is now on EliquisBID. Pt also states that he had just had a Colonoscopy completed a few months prior to hospitalization, around of this year, which was all normal besides Diverticulosis. -Patient denies any history of smoking (+current use of chew), denies any regular alcohol use (reports some/occasional use), and denies any illicit drug use. Patient denies any regular NSAID use. -Patient denies any known family history of any GI disorders or malignancies. The patient has no other questions or concerns at this time. Review of Systems Review of Systems Constitutional: Positive for appetite change and unexpected weight change. Negative for activity change, chills, diaphoresis, fatigue and fever. HENT: Negative for trouble swallowing and voice change. Gastrointestinal: Negative for abdominal distention, abdominal pain, anal bleeding, blood in stool,constipation, diarrhea, nausea, rectal pain and vomiting. All other systems reviewed and are negative. Past Medical History Medical History[1] Surgical History Surgical History[2] Family History Family History[3] Social History Social History Socioeconomic History Marital status: Spouse name: Not on file Number of children: Not on file Years of education: Not on file Highest education level: Not on file Occupational History Not on file Tobacco Use Smoking status: Never Passive exposure: Current Smokeless tobacco: Current Types: Chew Vaping Use Vaping status: Never Used Substance and Sexual Activity Alcohol use: Not Currently Alcohol/week: 10.0 standard drinks of alcohol Types: 10 Cans of beer per week Comment: Beer once in a while. I've found it helps with headaches. Drug use: Never Sexual activity: Not Currently Partners: Female control/protection: Male Sterilization Comment: Hormone therapy/Lupron caused erectile dysfunction Other Topics Concern Not on file Social History Narrative Beer Consumption (___ Bottles Per Day) Uses chewing tobacco Marital Status: Social Drivers of Health Financial Resource Strain: Low Risk (06/24/2024) Overall Financial Resource Strain (CARDIA) Difficulty of Paying Living Expenses: Not very hard Food Insecurity: No Food Insecurity (06/24/2024) Hunger Vital Sign Worried About Running Out of Food in the Last Year: Never true Ran Out of Food in the Last Year: Never true Transportation Needs: No Transportation Needs (06/24/2024) PRAPARE - Transportation Lack of Transportation (Medical): No Lack of Transportation (Non-Medical): No Physical Activity: Not on file Stress: Not on file Social Connections: Unknown (06/24/2024) Social Connection and Isolation Panel Frequency of Communication with Friends and Family: Not on file Frequency of Social Gatherings with Friends and Family: Not on file Attends Yazidism Services: Not on file Active Member of Clubs or Organizations: Not on file Attends Club or Organization Meetings: Not on file Marital Status: Intimate Partner Violence: Not At Risk (06/24/2024) Humiliation, Afraid, Rape, and Kick questionnaire Fear of Current or Ex-Partner: No Emotionally Abused: No Physically Abused: No Sexually Abused: No Housing Stability: Low Risk (06/24/2024) Housing Stability Vital Sign Unable to Pay for Housing in the Last Year: No Number of Times Moved in the Last Year: 0 Homeless in the Last Year: No Outpatient Medications Current Outpatient Medications Medication Instructions acetaminophen (TYLENOL) 650 mg, Oral, Every 4 hours PRN, Under [place] law, monthly prescriptions (30 days) can be refilled at 25 days and three-month prescriptions (90 days) at 80 days. Please contact the insurance company with questions if refills are denied. albuterol 108 (90 Base) MCG/ACT inhaler INHALE TWO (2) PUFFS FOUR (4) (FOUR) TIMES A DAY. atorvastatin (LIPITOR) 80 mg, Nightly bicalutamide (Casodex) 50 MG chemo tablet bisacodyl (DULCOLAX) 10 mg, Rectal, Daily budesonide-formoterol (Symbicort) 160-4.5 MCG/ACT inhaler INHALE TWO (2) PUFFS TWICE A DAY BY INHALATION ROUTE. carbidopa-levodopa (Sinemet) 25-100 MG tablet 1 tablet, Oral, 3 times daily clopidogrel (PLAVIX) 75 mg, Daily cyanocobalamin (VITAMIN B-12) 1,000 mcg, Daily Eliquis 5 mg, 2 times daily Farxiga 10 mg, Daily fluticasone (Flonase) 50 MCG/ACT nasal spray Administer 1 spray into each nostril as needed for allergies. furosemide (Lasix) 40 MG tablet 1 tablet, Daily insulin lispro (ADMELOG) 0-5 Units, Subcutaneous, 3 times daily with meals, See After Visit Summaryfor instructions on how to take your insulin. insulin lispro (ADMELOG) 0-3 Units, Subcutaneous, 2 times nightly (2100 & 0300), See After Visit Summary for instructions on how to take your insulin. latanoprost (Xalatan) 0.005 % ophthalmic solution 1 drop, Nightly leuprolide (LUPRON) 11.25 mg, Every 6 months lisinopril 40 MG tablet 40 mg by oral route. melatonin 9 mg, Oral, Nightly PRN Methylcobalamin [address] under the tongue. metoprolol succinate XL (TOPROL-XL) 50 mg, 2 times daily metoprolol tartrate (LOPRESSOR) 25 mg, Oral, 2 times daily mirtazapine (Remeron) 15 MG tablet TAKE ONE HALF (1/2) TABLET BY MOUTH AT BEDTIME nitroglycerin (NITROSTAT) 0.4 mg, As needed pantoprazole (PROTONIX) 40 mg, Oral, Every 12 hours, Do not crush, chew, or split. polyethylene glycol (MIRALAX) 17 g, Oral, 2 times daily potassium chloride CR (K-Tab) 20 MEQ ER tablet Take 1 tablet every day by oral route for 14 days. pravastatin (Pravachol) 80 MG tablet TAKE ONE (1) TABLET EVERY DAY BY ORAL ROUTE. [Paused] ramipril (Altace) 10 MG capsule TAKE ONE (1) CAPSULE ONCE DAILY senna-docusate (Dhara-Colace) 8.6-50 MG tablet 2 tablets, Oral, 2 times daily spironolactone (ALDACTONE) 25 mg, Daily sucralfate (Carafate) 1 GM/10ML suspension TAKE 10 ML FOUR (4) TIMES A DAY BY ORAL ROUTE BEFORE MEAL(S). Xarelto 20 mg, Daily Allergies Allergies[4] Objective: Physical Exam Vitals reviewed. Constitutional: General: He is not in acute distress. Appearance: Normal appearance. He is normal weight. He is not ill-appearing or diaphoretic. HENT: Head: Normocephalic and atraumatic. Mouth/Throat: Mouth: Mucous membranes are moist. Cardiovascular: Rate and Rhythm: Normal rate and regular rhythm. Pulmonary: Effort: Pulmonary effort is normal. No respiratory distress. Abdominal: General: Abdomen is flat. There is no distension. Palpations: Abdomen is soft. Tenderness: There is no abdominal tenderness. Skin: General: Skin is warm and dry. Coloration: Skin is not jaundiced or pale. Neurological: General: No focal deficit present. Mental Status: He is alert and oriented to person, place, and time. Mental status is at baseline. Psychiatric: Mood and Affect: Mood normal. Behavior: Behavior normal. Thought Content: Thought content normal. Judgment: Judgment normal. Vital Signs Visit Vitals BP 113/72 Pulse 59 Temp 36.7 ??C (98 ??F) (Oral) Ht 1.753 m (5' 9 ) Wt 62 kg (136 lb 11 oz) SpO2 98% BMI 20.18 kg/m?? Smoking Status Never BSA 1.74 m?? Body mass index is 20.18 kg/m??. Labs: Lab Results Component Value Date ALT <5 (L) 07/09/2024 AST 14 07/09/2024 ALKPHOS 154 (H) 07/09/2024 BILITOT 0.6 07/09/2024 Lab Results Component Value Date GLUCOSE 126 (H) 07/09/2024 CALCIUM 8.9 07/09/2024 NA 137 07/09/2024 K 3.6 07/09/2024 CO2 23 07/09/2024 CL 105 07/09/2024 BUN 8 07/09/2024 CREATININE 0.77 07/09/2024 Lab Results Component Value Date WBC 3.39 (L) 07/09/2024 HGB 8.6 (L) 07/09/2024 HCT 26.9 (L) 07/09/2024 MCV 92 07/09/2024 PLT 144 (L) 07/09/2024 Lab Results Component Value Date/Time ALBUMIN 3.3 (L) 07/09/2024 0544 HPYLORI Negative 07/04/2024 1432 TSH 0.74 06/24/2024 0017 Assessment and Plan: Diagnoses addressed and all orders for this visit: Diagnosis Plan 1. Gastrointestinal hemorrhage, unspecified gastrointestinal hemorrhage type Follow Up GI 2. Anemia, unspecified type Follow Up GI 3. Unintentional weight loss 4. Healthcare maintenance #Gastrointestinal hemorrhage, unspecified gastrointestinal hemorrhage type (RESOLVED at this time) #Anemia, unspecified type (STABLE/IMPROVING) #Unintentional weight loss - Pt referred to GI after hospitalization from 06/23/2024 - 07/10/2024 for GIB with black/tarry stools, hypotension, and decreased Hgb--Was given 2 units of pRBC, was initiated on Levophed gtt for hemorrhagic shock, and started on Protonix BID--Inpt GI was consulted, who performed EGD on 06/26/2024, which revealed multiple non-bleeding ulcerations--Repeat EGD was performed on 07/08/2024, which did not visualize any active bleeding, and also visualized healing ulceration--Pt's Hgb remained stable during rest of hospitalization. - Reviewed labs (07/09/2024) which revealed: CBC with stable/improved but low Hgb/Hct (8.6/26.9) otherwise unremarkable, CMP with mildly elevated Alk Phos of 154 otherwise unremarkable, Magnesium decreased at 1.8 - 06/26/2024 EGD reviewed: Grade B esophagitis with mucosal breaks measuring 5 mm or more not continuous between folds, covering less than 75% of the circumference in the middle third of the esophagus and lower third of the esophagus; Multiple small ulcers in the body of the stomach and antrum withclean base (Clarence III); Single small ulcer in the duodenal bulb with clean base (Clarence III); Single large, cratered ulcer in the duodenal sweep with flat pigmented spot (Clarence IIC), approximately 2cm in size; The 2nd part of the duodenum appeared normal. - 07/08/2024 Repeat EGD reviewed: No blood, bleeding lesions or lesions with stigmata of bleeding seen throughout the esophagus, stomach and visualized duodenum; Mild, localized erythematous mucosa in the GE junction (38 cm from the incisors); No bleeding was observed; Previous ulcers in the gastric antrum and prepyloric stomach were now clean-based erosions. No blood was seen throughout the stomach; Marked improvement in area of ulceration within duodenal bulb. Prior ulceration along sweep nowsuperficial with no high risk features of bleeding. Duodenal bulb ulcer now consistent with erosion--Recommendation to continue high dose PPI BID and start additional Carafate to help promote ulcer healing. - Pt presents today reporting no ongoing s/s of GI bleeding, denying any additional black/tarry stools or BRBPR - Continues to have an overall decreased appetite and has continued losing weight unintentionally. - Overall plan of care is complicated r/t his multiple chronic health issues, especially including his metastasized prostate cancer, cardiac diagnoses, and Parkinson's. - Pt was able to provide recent lab results that were completed at OSH ([facility]) on 10/15/2024 and 10/17/2024, which revealed: Iron Panel all WNL, Folate WNL, CBC with improving (trending upward) Hgb/Hct of 10.2/35.3% otherwise unremarkable, CMP with mildly elevated Alk Phos of 139, and TSH WNL. - Not currently taking any iron supplementation. - Has continued taking Protonix 40 mg PO BID and Carafate 1 g/10 mL 10 mL PO QID since hospital discharge - Denies any GERD, symptoms, N/V, or abdominal pain - Reportedly has now become established with a Compensation Associate at [facility] since hospital discharge, and is now following with them. - Has been taken off Xarelto and Plavix, and is now on Eliquis BID. Plan: Continue Protonix 40 mg PO BID--No refills needed today per pt Continue Carafate 1 g/10 mL 10 mL PO QID--No refills needed today per pt Recent CBC and Iron Panel reveal improvement, and Hgb continues trending upward--No additional labswarranted today--Will continue to monitor Discussed with pt that, considering improvement in Hgb and upward trend, reported no s/s of GI bleeding, and repeat EGD during hospitalization visualized healing of ulcers, another repeat EGD not warranted at this time--Especially considering risk of anesthesia with procedure and pt's current health status with other diagnoses he is currently dealing with Can consider repeat EGD if black/tarry stools return, or if there is a drop in Hgb--Will continue to monitor lab work closely at this time--Pt and his agreeable to plan Recommended referral to Cable Armorer Operator and/or Rx for Boost supplements to help with nutrition/weight loss, pt politely declines at this time Pt reports having plenty of Boost at home, doesn't like to drink due to taste--Recommended pt try to start drinking at least 1/day at this time if he can tolerate #Healthcare maintenance - Pt reports today [facility] which was all normal besides Diverticulosis finding. - Records for recent Colonoscopy not available for review in pt's EHR at this time--Will request records Plan: Pt currently UTD with CRC screening per report of recent, grossly unremarkable Colonoscopy performed around April 2024 Follow-up in 2-3 months via TeleHealth Jennifer Barber APRN, OMAR A total of 74 minutes was spent on this patient encounter, which included - educating patient, interpreting and discussing labs and imaging, impressions, prognosis, risks/benefits of current treatment options, risk factor reduction, instructions for management, and documentation. Care coordination provided included review and summary of medical records and additional diagnostic research, phone collaboration and consult with peers. Note to patient: The Century Cures Act makes medical notes like these available to patients inthe interest of transparency. However, be advised this is a medical document. It is intended as nikm-ub-litd communication. It is written in medical language and may contain abbreviations or verbiagethat are unfamiliar. It may appear blunt or direct. Medical documents are intended to carry relevant information, facts as evident, and the clinical opinion of the practitioner. [1] Past Medical History: Diagnosis Date CAD (coronary artery disease) Carotid artery occlusion 2 heart attacks Cataract post replacement CVA (cerebral vascular accident) (CMS/HCC) Depression DM (diabetes mellitus) type II, controlled, with peripheral vascular disorder (CMS/HCC) Erectile dysfunction Glaucoma Headache Headache, tension-type Heart [...] pulmonary nodules, and splenic granulomas Shingles Stroke (CMS/HCC) 3x Tremor both hands Vision loss macular degenration and mild glaucaoma Weakness of limb [2] Past Surgical History: Procedure Laterality Date CARDIAC PACEMAKER PLACEMENT N/A Pacemaker Placement from [facility] CARDIAC STENT Right 09/27/2023 CAROTID STENT CATARACT EXTRACTION N/A Cataract surgery from [facility] CORONARY ANGIOPLASTY WITH STENT PLACEMENT N/A Cardiac catheterization with stent placement from [facility] [3] Family History Problem Relation Name Age of Onset Heart failure Mother Louisa Pieratt Macular degeneration Mother Louisa Pieratt Blindness Mother Louisa Pieratt Kidney failure Mother Louisa Pieratt Stroke Mother Louisa Pieratt Other cancer Mother's Brother Stroke Maternal Grandfather Other cancer Other [4] No Known Allergies documented in this encounter Plan of Treatment Upcoming Encounters Date Type Department Care Team (Late st Contact Info) Description 01/23/2025 9:45 AM EST Office Visit [facility] Specialties [address] [place] [address] Jennifer Barber APRN, DNP [address] [place] [address] 02/28/2025 9:00 AM EST Office Visit [facility] [address] [place] [address] Chu Null MD [address] [place] [address] 09/11/2025 10:00 AM EDT Ancillary Procedure [facility] [address] [place] [address] 09/11/2025 11:00 AM EDT Office Visit [facility] Medicine [facility] [address] [place] [address] Jeff Longoria MD [address] [place] [address] Scheduled Referrals Name Type Priority Associated Diagnoses Orde r Schedule Follow Up GI Outpatient Referral Routine Gastrointestinal hemorrhage, unspecified gastrointestinal hemorrhage type Anemia, unspecified type Expected: 12/24/2024 (Approximate), Expires: 11/24/2025 documented as of this encounter Goals Goal Patient Goal Type Associated Problems Recent Progress Patient-Stated? Author Autogenerat ed Goal Care Plan Autogenerated Problem No Antonia Johnson, RN Autogenerat ed Goal Care Plan Autogenerated Problem No Antonia Johnson, RN documented as of this encounter Visit Diagnoses Diagnosis Gastrointestinal hemorrhage, unspecified gastrointestinal hemorrhage type- Primary Anemia, unspecified type Unintentional weight loss Loss of weight Healthcare maintenance documented in this encounter Additional Health Concerns Active Problems Noted Date Diagnosed Date Autogenerated Problem 06/25/2024 Autogenerated Problem 07/08/2024 Assessment Noted Time PHQ-9 Depression Total Score: 1 09/13/19 25 9:04 AM EDT A fall risk assessment has been complete d for the patient 10/24/2024 11:02 AM EDT A Body Mass Index follow-up plan has been documented for the patient 10/24/2024 1:08 PM EDT documented as of this encounter Care Teams Director Revenue Relationship Specialty Start Date End Date Eric Maria MD [address] [place] [address] PCP - General 11/04/20 documented as of this encounter
--- NOTE | 2024-12-04 | CA_ITS ---
APPROVED REPORT Exam: Pharmacologic Technologist: Donita Jenkins Ht: 5 ft 9 in Wt: 131 lbs BSA: 1.73 m2 HR: 85 bpm BP: 127/68 mmHg Medical History Medications: Tylenol, Apixaban, Atrovastatin, Symbicort, Carbidopa-Levodopa, Vitamin B-12, Sucralfate, Farxiga, Lasix, Lantus, Latanoprost 0.005%, Melatonin, Mirtazapine, Nitroglycerin, Pantoprazole, Spironolactone. Allergies: .0 Stress Test Details Test: Lexiscan Reason for pharmacologic stress test: physical limitation. HR Resting HR: 85 bpm Max Heart Rate (APMHR): 145.241752 bpm Max HR Achieved: 87 bpm Target HR (85% APMHR): 123.723285 bpm % of APMHR: 60.00 Recovery HR: 85 bpm BP Resting BP: 127.0/68.0 mmHg Max BP: 131.0/61.0 mmHg Recovery BP: 121.0/60.0 mmHg ECG Resting ECG: V paced Stress ECG Conclusion Symptoms: None. Arrhythmias/Ectopy: None. ST-T Changes: less than 0.5mm upsloping ST segment changes. Conclusion: Nondiagnostic ECG/Lexiscan. Electronically signed by : Lelia Em MD 12/04/2024 17:18:39
--- OUTSIDE RECORDS SUMMARY | 2024-12-04 10:07 | XMS_ITS | Clinical Summary ---
Author Organization [employer] ([place], [place], [place], [place]) Address [address] [place] [address] Care Team Providers Care Special Ed Assistant Name Role Phone Unavailable Primary Care [...]
--- OUTSIDE RECORDS SUMMARY | 2024-12-04 10:07 | XMS_ITS | Encounter Summary ---
Author Organization [facility] Address [address] [place] [address] Care Team Providers Care Barge Pilot Name Role Phone Eric Maria MD Primary Care Provider Encounter Details Date Type Department Care Team (Late st Contact Info) Description 05/31/2024 Orders Only External Location [address] [place] [address] Provider, External Social History Tobacco Use Types [...] Description 01/23/2025 9:45 AM EST Office Visit [facility] Medicine Specialties [address] [place] [address] Jennifer Barber, NEWSPAPER JOURNALIST, DNP [address] [place] [address] 02/28/2025 9:00 AM EST Office Visit [facility] [address] [place] [address] Chu Null MD [address] [place] [address] 09/11/2025 10:00 AM EDT Ancillary Procedure [facility] Medicine Specialties [address] [place] [address] 09/11/2025 11:00 AM EDT Office Visit [facility] [address] [place] [address] Jeff Longoria MD [address] [place] [address] documented as of this encounter [...] documented as of this encounter Care Teams Barge Pilot Relationship Specialty Start Date End Date Eric Maria MD [address] [place] [address] PCP - General 11/04/20 documented as of this encounter
--- OUTSIDE RECORDS SUMMARY | 2024-12-04 10:07 | XMS_ITS | Encounter Summary ---
Author Organization [employer] ([place], [place], [place], [place]) Address [address] [place] [address] Care Team Providers Care Upholsterer Assembly Line Name Role Phone Unavailable Primary Care Provider Unavailabl e Encounter Details Date Type Department Care Team (Late st Contact Info) Description 01/14/2019 Transcribed Document [facility] [place] Family Medicine [address] [place] [address] ProviderJose MD [address] [place] [address] Social History Tobacco Use Types Packs/Day Years Used Date Smoking Tobacco: Never Assessed Sex and Gender Information Value Date Recorded Sex Assigned at Not on file Legal Sex Male 2:31 PM CDT Gender Identity Not on file Sexual Orientation Not on file documented as of this encounter Miscellaneous Notes * Cerner Conversion Note - Jose Stokes MD - 01/14/2019 2:16 PM TAP BUILDER UM Authorization Entered On: 01/14/2019 14:17 EST Performed On: 01/14/2019 14:16 EST by COLBY FABIAN RN-Utilization Review Primary Insurance Authorization Authorization and Policy Numbers : Insurance 1 Health Plan: R Policy Number: [id number] Authorization Number: Insurance 2 Health Plan: MEDICARE Policy Number: [id number] Authorization Number: Insurance Primary Name : [facility] [id number] Authorization Status-Primary : Pending clinicals Authorization Fax Number-Primary : [phone] Auth/Referral Phone Number-Primary : [phone] Auth/Referral Contact Name-Primary : Loren Reference Number-Primary : [id number] Authorization Number-Primary : [id number] Number of Days Authorized-Primary : 2 Day(s) Authorized Service Begin Date-Primary : 01/09/2019 EST Authorized Service End Date-Primary : 01/11/2019 EST Authorization Comments-Primary : Approved per loren Historical Authorization Comments-Primary : Comment 1: Clinicals faxed via [employer] to [phone] (KATHARINE MOREAU, Rn-Utilization Review 01/11/2019 11:00) Comment 2: rec'd call from Loren requesting clinicals be faxed to her [phone] fax [phone] (COLBY FABIAN RN-Utilization Review 01/11/2019 10:04) Comment 3: Auth initiated on [facility] portal. Awaiting call for clinicals. (KATHARINE MOREAU, Rn-Utilization Review 01/10/2019 10:02) COLBY FABIAN RN-Utilization Review - 01/14/2019 14:16 EST documented in this encounter Plan of Treatment Not on file documented as of this encounter Visit Diagnoses Not on filedocumented in this encounter
--- OUTSIDE RECORDS SUMMARY | 2024-12-04 10:07 | XMS_ITS | Encounter Summary ---
Author Organization [employer] ([place], [place], [place], [place]) Address [address] [place] [address] Care Team Providers Care Childcare Provider Name Role Phone Unavailable Primary Care Provider Unavailabl e Encounter Details Date Type Department Care Team (Late st Contact Info) Description 01/09/2019 Transcribed Document [facility] [place] Family Medicine [address] [place] [address] ProviderJose MD [address] [id number] Social History Tobacco Use Types Packs/Day Years Used Date Smoking Tobacco: Never Assessed Sex and Gender Information Value Date Recorded Sex Assigned at Not on file Legal Sex Male 2:31 PM CDT Gender Identity Not on file Sexual Orientation Not on file documented as of this encounter Miscellaneous Notes * Cerner Conversion Note - Jose Stokes MD - 01/09/2019 4:30 PM SUPERVISOR PHOTOENGRAVING Patient: KINGSTON POLLOCK Age: 68 years Sex: [...] and he was diagnosed with non-ST elevation [place] and transferred here. The patient also had [...] CVA - Cerebrovascular accident / SNOMED CT 517920029 / Confirmed Diabetes mellitus / SNOMED CT 802805081 / Confirmed Hyperlipidemia / SNOMED CT 92032299 / Confirmed Hypertension / SNOMED CT 09512680 / Confirmed, Active Problems (4) CVA - Cerebrovascular accident Diabetes mellitus Hyperlipidemia Hypertension Histories Past Medical History: No active or resolved past medical history items have been selected or recorded., As noted above Coronary artery disease never had a stent. Family History: No family history items have been selected or recorded., Patient does not know his family history Procedure history: Pacemaker ([id number]). Social History Social & Psychosocial Habits Alcohol [...] of motion, Normal strength. Integumentary: Warm, Dry, [place]. Neurologic: Alert, Oriented. Cognition and Speech: Oriented, [...] nephrotoxicity, possible need for emergent CABG/blood transfusion, [place], stroke or . I have discussed risks [...]
--- OUTSIDE RECORDS SUMMARY | 2024-12-04 10:07 | XMS_ITS | Encounter Summary ---
Author Organization [employer] ([place], [place], [place], [place]) Address [address] [place] [address] Care Team Providers Care Insurance Premium Auditor Name Role Phone Unavailable Primary Care Provider Unavailabl e Encounter Details Date Type Department Care Team (Late st Contact Info) Description 01/11/2019 Transcribed Document [facility] [place] Family Medicine [address] [place] [address] ProviderJose MD [address] [place] [address] Social History Tobacco Use Types Packs/Day Years Used Date Smoking Tobacco: Never Assessed Sex and Gender Information Value Date Recorded Sex Assigned at Not on file Legal Sex Male 2:31 PM CDT Gender Identity Not on file Sexual Orientation Not on file documented as of this encounter Miscellaneous Notes * Cerner Conversion Note - Historical ProviderMD - 01/11/2019 3:23 PM COMPONENTS ENGINEER Stroke/Warfarin Instructions Entered On: 01/11/2019 15:23 EST [...]
--- OUTSIDE RECORDS SUMMARY | 2024-12-04 10:07 | XMS_ITS | Encounter Summary ---
Author Organization [facility] Address [address] [place] [address] Care Team Providers Care Clinical Documentation Manager Name Role Phone Eric Maria MD Primary Care Provider Encounter Details Date Type Department Care Team (Late st Contact Info) Description 05/25/2024 Orders Only External Location [address] [place] [address] Vicky Sapp MD [address] [place] [address] Social History Tobacco Use Types Packs/Day Years [...] Description 01/23/2025 9:45 AM EST Office Visit [facility] Specialties [address], [address] [place] [phone] Jennifer Barber, SOFTWARE ENGINEER WEB SERVICES, DNP [address] [place] [address] 02/28/2025 9:00 AM EST Office Visit [facility] [address], [address] [place] [address] Chu Null MD [address] [place] [address] 09/11/2025 10:00 AM EDT Ancillary Procedure [facility] [address], [address] [place] [address] 09/11/2025 11:00 AM EDT Office Visit [facility] [address], [address] [place] [address] Jeff Longoria MD [address] [place] [phone] documented as of this encounter Procedures Procedure [...] as of this encounter Care Teams Clinical Documentation Manager Relationship Specialty Start Date End Date Eric Maria MD [address] [place] [address] PCP - General 11/04/20 documented as of this encounter
--- OUTSIDE RECORDS SUMMARY | 2024-12-04 10:07 | XMS_ITS | Encounter Summary ---
Author Organization [employer] ([place], [place], [place], [place]) Address [address] [place] [address] Care Team Providers Care Track Helper Name Role Phone Unavailable Primary Care Provider Unavailabl e Encounter Details Date Type Department Care Team (Late st Contact Info) Description 01/10/2019 Transcribed Document [facility] [place] Family Medicine [address] [place] [address] ProviderJose MD [address] [place] [address] Social History Tobacco Use Types Packs/Day Years Used Date Smoking Tobacco: Never Assessed Sex and Gender Information Value Date Recorded Sex Assigned at Not on file Legal Sex Male 2:31 PM CDT Gender Identity Not on file Sexual Orientation Not on file documented as of this encounter Miscellaneous Notes * Cerner Conversion Note - Historical ProviderMD - 01/10/2019 9:24 AM RAPID TRANSIT OPERATOR Therapy Screen, OT Entered On: 01/10/2019 11:16 [...]
--- OUTSIDE RECORDS SUMMARY | 2024-12-04 10:07 | XMS_ITS | Referral Summary ---
Author Organization [employer] ([place], [place], [place], [place]) Address [address] [place] [address] Care Team Providers Care Fishing Manager Name Role Phone Unavailable Primary Care [...]
--- OUTSIDE RECORDS SUMMARY | 2024-12-04 10:07 | XMS_ITS | Encounter Summary ---
Author Organization [employer] ([place], [place], [place], [place]) Address [address] [place] [address] Care Team Providers Care Insole Taper Name Role Phone Unavailable Primary Care Provider Unavailabl e Encounter Details Date Type Department Care Team (Late st Contact Info) Description 01/10/2019 Transcribed Document [facility] [place] [address] [place] [address] ProviderJose MD [address] [id number] Social History Tobacco Use Types Packs/Day Years Used Date Smoking Tobacco: Never Assessed Sex and Gender Information Value Date Recorded Sex Assigned at Not on file Legal Sex Male 2:31 PM CDT Gender Identity Not on file Sexual Orientation Not on file documented as of this encounter Miscellaneous Notes * Cerner Conversion Note - Jose Stokes MD - 01/10/2019 4:12 PM TAPPING MACHINE OPERATOR AUTOMATIC Patient: KINGSTON POLLOCK Age: 68 years Sex: Male : 1950 Associated Diagnoses: None Author: GERARDO RICHARDSON MD-CAR Postcardiac catheterization note: After I discuss the Finding and the findings of angioplasty and stenting with the family, the and the family members to told me that he had a prostate cancer, the CT scan done at [facility] suggested that he had metastatic disease [...]
--- OUTSIDE RECORDS SUMMARY | 2024-12-04 10:07 | XMS_ITS | Encounter Summary ---
Author Organization [employer] ([place], [place], [place], [place]) Address [address] [place] [address] Care Team Providers Care Floor Broker Name Role Phone Unavailable Primary Care Provider Unavailabl e Encounter Details Date Type Department Care Team (Late st Contact Info) Description 01/11/2019 Transcribed Document [facility] [place] [address] [place] [address] ProviderJose MD [address] [place], [place] [phone] Social History Tobacco Use Types Packs/Day Years Used Date Smoking Tobacco: Never Assessed Sex and Gender Information Value Date Recorded Sex Assigned at Not on file Legal Sex Male 2:31 PM CDT Gender Identity Not on file Sexual Orientation Not on file documented as of this encounter Miscellaneous Notes * Cerner Conversion Note - Jose Stokes MD - 01/11/2019 10:04 AM BLOCK INSPECTOR UM Authorization Entered On: 01/11/2019 10:05 EST Performed On: 01/11/2019 10:04 EST by COLBY FABIAN RN-Utilization Review Primary Insurance Authorization Authorization and Policy Numbers : Insurance 1 Health Plan: R Policy Number: [id number] Authorization Number: Insurance 2 Health Plan: MEDICARE Policy Number: [id number] Authorization Number: Insurance Primary Name : [employer] [id number] Authorization Status-Primary : Pending clinicals Authorization Fax Number-Primary : [phone] Auth/Referral Phone Number-Primary : [phone] Auth/Referral Contact Name-Primary : Loren Reference Number-Primary : [id number] Authorized Service Begin Date-Primary : 01/11/2019 EST Authorization Comments-Primary : rec'd call from Loren requesting clinicals be faxed to her [phone] fax [phone] Historical Authorization Comments-Primary : Comment 1: Auth initiated on [facility] portal. Awaiting call for clinicals. (KATHARINE MOREAU, Rn-Utilization Review 01/10/2019 10:02) COLBY FABIAN RN-Utilization Review - 01/11/2019 10:04 EST Electronically signed by [facility] Conversion Wheel Loader Operator Cerner at 06/23/2022 12:02 PM CDT documented in this encounter Plan of Treatment Not on file documented as of this encounter Visit Diagnoses Not on filedocumented in this encounter
--- OUTSIDE RECORDS SUMMARY | 2024-12-04 10:07 | XMS_ITS | Encounter Summary ---
Author Organization [employer] ([place], [place], [place], [place]) Address [address] [place] [address] Care Team Providers Care Varying Exceptionalities Teacher Name Role Phone Unavailable Primary Care Provider Unavailabl e Encounter Details Date Type Department Care Team (Late st Contact Info) Description 01/09/2019 Transcribed Document [facility] [place] [address] [place] [address] ProviderJose MD [address] [place], [place] [address] Social History Tobacco Use Types Packs/Day Years Used Date Smoking Tobacco: Never Assessed Sex and Gender Information Value Date Recorded Sex Assigned at Not on file Legal Sex Male 2:31 PM CDT Gender Identity Not on file Sexual Orientation Not on file documented as of this encounter Miscellaneous Notes * Cerner Conversion Note - Historical ProviderMD - 01/09/2019 5:00 PM ADVANCED CLINICAL SPECIALIST Chart Check - Review Order Profile Entered On: 01/09/2019 21:12 EST Performed On: 01/09/2019 17:00 EST by Jailene Calvillo RN Chart Check Powerplans Initiated/Discontinued as Appropriate : Not applicable All Active Orders Reviewed : Yes Jailene Calvillo RN - 01/09/2019 21:12 EST Electronically signed by [facility] Conversion Hand Miter Operator Cerner at 06/23/2022 12:04 PM CDT documented in this encounter Plan of Treatment Not on file documented as of this encounter Visit Diagnoses Not on filedocumented in this encounter
--- OUTSIDE RECORDS SUMMARY | 2024-12-04 10:07 | XMS_ITS | Clinical Summary ---
Author Organization [facility] Address [address] [place] [address] Care Team Providers Care On Call Name Role Phone Eric Maria MD Primary [...] for fever (for temperature > 38.5). Under [place] law, monthly prescriptions (30 days) can be [...] Type Department Care Team Description 11/21/2024 Telephone [facility] [address], [address] [place] [address] Chu Null MD 10/24/2024 10:45 AM EDT Office Visit [facility] Medicine Specialties [address], [address] [place] [address] Jennifer Barber APRN, DNP Gastrointestinal hemorrhage, unspecified gastrointestinal hemorrhage type (Primary Dx); Anemia, unspecified type; Unintentional weight loss; Healthcare maintenance 10/24/2024 Travel 09/13/2024 Refill [place] [facility] [address] [place] [address] Chris Stratton MBBS 09/12/2024 9:30 AM EDT Office Visit [facility] Medicine Specialties [address], [address] [place] [address] Jeff Longoria MD Pulmonary sarcoidosis (CMS/HCC) (Primary Dx); Dyspnea on exertion 09/12/2024 8:00 AM EDT Ancillary Procedure [facility] Medicine Specialties [address], [address] [place] [address] Sarcoidosis; Shortness of breath 09/12/2024 Travel 09/10/2024 [...] and Family Not on file 06/24/2024 Attends [employer] Not on file 06/24 Active Member [...] any time in the past 12 m [facility], were you homeless or living in [...] 01/23/2025 9:45 AM EST Office Visit [facility] Medicine [facility] [address], [address] [place] [address] Jennifer Barber APRN, DNP [address] [place] [address] 02/28/2025 9:00 AM EST Office Visit [facility] [address], [address] [place] [address] Chu Null MD [address] [place] [address] 09/11/2025 10:00 AM EDT Ancillary Procedure [facility] [address], [address] [place] [address] 09/11/2025 11:00 AM EDT Office Visit [place] [address], [address] [place] [address] Jeff Longoria MD [address] [place] [address] Health Maintenance Due Date Last Done Comments [facility]-Medicare Annual Wellness (AWV) 1950 [facility]-/Child/Adol SDOH Screenings 1950 [id number] Vaccine (#1) 1955 Diabetes: Dental Exam 07/27/1959 [...] Care Plan Autogenerated Problem No Antonia Johnson, stave bolt equalizer Procedure Name Priority Date/Time Associated Diagnosis Comments [...] Pulmonary function test (09/12/2024 8:36 AM EDT) [id number] 2.84(A) 2.87 - 4.99 L VYAIRE PFT FVC PRED 3.92 VYAIRE PFT FVC LLN 2.87 VYAIRE PFT FVCPREZSCORE -1.69 VYAIRE PFT FVCPRE%PRED 72 % % VYAIRE PFT FVC PREDAUTNorth [facility] Medical Centerjer [facility] (2011) VYAIRE PFT FVC Z-SCORE -1.69 VYAIRE PFT FEV1 PRE 2.15 2.08 - 3.74 L VYAIRE PFT FEV1 PRED 2.94 VYAIRE PFT FEV1 LLN 2.08 VYAIRE PFT SYK2QXJXQLWMJ -1.52 VYAIRE PFT FEV1_Pre%Pred 73 % % VYAIRE PFT FEV1 PREDAUT [facility] GLI (2011) VYAIRE PFT FEV1 Z-SCORE -1.52 VYAIRE PFT FEV1/FVC PRE 75.58 61.31 - 88.08 % VYAIRE PFT GJL9QRXXTDW 75 VYAIRE PFT APZ2VPZCPV 61 VYAIRE PFT WXP0PXQCAGAJJHJW 0.02 VYAIRE PFT NMD9SJFYBA%PRED 100 % % VYAIRE PFT CSC4CZDWECZU [facility] GLI (2011) VYAIRE PFT QGL5LEXZFPLZK 0 VYAIRE PFT BJH84-25% PRE 1.79 0.88 - 4.02 L/s VYAIRE PFT ZYZ74-35%_Pred 2.16 VYAIRE PFT BMF2131%LLN 0.88 VYAIRE PFT OWA4349%PREZSCORE -0.41 VYAIRE PFT GIB9675%PRE%PRED 83 % % VYAIRE PFT PQY1845%[facility]EDPsychiatric hospital GLI (2011) VYAIRE PFT PEF PRE 4.44(A) 5.35 - 9.86 L/s VYAIRE PFT PEF PRED 7.61 VYAIRE PFT PEF LLN 5.35 VYAIRE PFT PEFPREZSCORE -2.31 VYAIRE PFT PEFPRE%PRED 58 % % VYAIRE PFT PEF PREDUN[facility] (1998) VYAIRE PFT CQMKBTRKZUIIUSGW0CMC 8.88(A) 17.76 - 32.27 ml/(min* mmHg) VYAIRE PFT DLCOSINGLEBREATH PRED 24.36 VYAIRE PFT DLCOSINGLEBREATH LLN 17.76 VYAIRE PFT DLCOSINGLEBREATH Z-SCORE -4.61 VYAIRE PFT DLCOSINGLEBREATH % PRED 36.5 % VYAIRE PFT DLCOSINGLEBREATH PREDL[facility] (2019) VYAIRE PFT DLCOSINGLEBREATH Z-SCORE -4.61 09/12/2024 8:27 AM EDT VYAIRE PFT EHMCITMTHZHUHALXU6IR E 8.88(A) 17.76 - 32.27 ml/(min* mmHg) VYAIRE PFT DLCOCSINGLEBREATH PRED 24.36 VYAIRE PFT DLCOCSINGLEBREATH LLN 17.76 VYAIRE PFT DLCOCSINGLEBREATH Z-SCORE -4.61 VYAIRE PFT DLCOCSINGLEBREATH % PRED 36.5 % VYAIRE PFT DLCOCSINGLEBREATH PREDAtrium Health [facility] Centerojevic TLCO GLI (2019) VYAIRE PFT VGRHEJ0TBU 2.13(A) 2.92 - 5.14 ml/(min* mmHg*L) VYAIRE PFT DLCOVAPRED 3.98 VYAIRE PFT DLCOVALLN 2.92 VYAIRE PFT DLCOVAZSCORE -3.02 VYAIRE PFT DLCOVA%PRED 53.5 % VYAIRE PFT DLCOVAPREDAUT Stanojevic TLCO GLI (2019) VYAIRE PFT DLCOVAZSCORE -3.02 09/12/2024 8:27 AM EDT VYAIRE PFT ABGTUVSBP1MHX 2.13(A) 2.92 - 5.14 ml/(min* mmHg*L) VYAIRE PFT DLCOC SB/VA PRED 3.98 VYAIRE PFT DLCOC SB/VA LLN 2.92 VYAIRE PFT DLCOC SB/VA Z-SCORE -3.02 VYAIRE PFT DLCOC SB/VA % PRED 53.5 % VYAIRE PFT DLCOC SB/VA PREDUN[facility] Stanojevic TLCO GLI (2019) VYAIRE PFT DLCOC SB/VA Z-SCORE -3.02 09/12 8:27 AM EDT VYAIRE PFT OOQEMHKJZPLJCC8UJN 4.17(A) 4.94 - 7.45 L VYAIRE PFT VASINGLEBREATH PRED 6.15 VYAIRE PFT VASINGLEBREATH LLN 4.94 VYAIRE PFT VASINGLEBREATH Z-SCORE -2.77 VYAIRE PFT VASINGLEBREATH % PRED 67.9 % VYAIRE PFT VASINGLEBREATH PREDUNM CANCER CENTER Stanojevic TLCO GLI (2019) VYAIRE PFT VASINGLEBREATH Z-SCORE -2.77 09/12/2024 8:27 AM EDT VYAIRE PFT HSOPMKMLJLKUHNB8XXR 2.60(A) 2.87 - 4.99 L VYAIRE PFT IVCSINGLEBREATH PRED 3.92 VYAIRE PFT IVCSINGLEBREATH LLN 2.87 VYAIRE PFT IVCSINGLEBREATH Z-SCORE -2.07 VYAIRE PFT IVCSINGLEBREATH % PRED 66.3 % VYAIRE PFT IVCSINGLEBREATH PREDNYC HEALTH + HOSPITALS_[facility]jer [facility] (2011) VYAIRE PFT ISATU% VCMAX PRE 87.23 % VYAIRE PFT TLC SB PRE 4.32(A) 5.39 - 8.38 L VYAIRE PFT TLCSINGLEBREATH PRED 6.87 VYAIRE PFT TLCSINGLEBREATH LLN 5.39 VYAIRE PFT TLCSINGLEBREATH Z-SCORE -2.85 VYAIRE PFT TLCSINGLEBREATH % PRED 62.9 % VYAIRE PFT TLCSINGLEBREATH PREDGoddard Memorial Hospital Lung volumes GLI (2019)__ VYAIRE PFT HB PRE 14.60 g(Hb)/dL VYAIRE PFT VTH7HHV 4.95(A) 5.39 - 8.38 L VYAIRE PFT TLCPRED 6.87 VYAIRE PFT TLCLLN 5.39 VYAIRE PFT TLCULN 8.38 VYAIRE PFT TLCZSCORE -2.14 VYAIRE PFT TLC%PRED 72.0 % VYAIRE PFT TLCPREDGoddard Memorial Hospital Lung volumes GLI (2019)__ VYAIRE PFT VC0PRE 2.98 2.87 - 4.99 L VYAIRE PFT VCPRED 3.92 VYAIRE PFT VCLLN 2.87 VYAIRE PFT VCULN 4.99 VYAIRE PFT VCZSCORE -1.47 VYAIRE PFT VC%PRED 76.0 % VYAIRE PFT VCPREDAUTWilmington Hospitalr GLI (2011) VYAIRE PFT IC0PRE 1.81(A) 2.06 - 3.85 L VYAIRE PFT ICPRED 2.98 VYAIRE PFT ICLLN 2.06 VYAIRE PFT ICULN 3.85 VYAIRE PFT IC Z-SCORE -2.08 VYAIRE PFT IC%PRED 61.0 % VYAIRE PFT ICPREDGoddard Memorial Hospital Lung volumes GLI (2019)__ VYAIRE PFT YDTFHEDA9UMJ 3.14 2.65 - 5.23 L VYAIRE PFT FRCPLETH PRED 3.80 VYAIRE PFT FRCPLETH LLN 2.65 VYAIRE PFT FRCPLETH ULN 5.23 VYAIRE PFT FRCPLETH Z-SCORE -0.90 VYAIRE PFT FRCPLETH % PRED 82.6 % VYAIRE PFT FRCPLETH PREDAUTH [place] Lung volumes GLI (2019)__ VYAIRE PFT CLD8MQR 1.17 0.35 - 2.42 L VYAIRE PFT [...] [place] Lung volumes GLI (2019)__ VYAIRE PFT RV%UNR2WFZ 39.80 25.64 - 50.70 % VYAIRE PFT [...] pulmonary function testing today at the [facility]. The patient underwent spirometry, lung volumes by [...] abdominal pain, fever, gastrointestinal bleeding and call manager inspection GI if present. - Findings and recommendations were discussed with patient immediately following the procedure in PACU - Findings and recommendations to be conveyed to primary team. Indication Gastrointestinal hemorrhage, unspecified gastrointestinal hemorrhage type Medications See anesthesia record for anesthesia administered medications. Staff Staff Role Sofia Mcdowell, Yannick Chavez CRNA Endo Revit Drafter Rose Serrano MD Proceduralist Deirdre Kwok RN [...] Antigen Negative Negative 06/24/2024 1:35 AM EDT [facility] Hepatitis C Antibody Negative Negative 06/24/2024 1:35 AM EDT [facility] Hepatitis A Antibody IgM Negative Negative 06/24/2024 1:35 AM EDT [facility] Hepatitis B Core Antibody IgM Negative Negative 06/24/2024 1:35 AM EDT [facility] Blood Venous blood specimen / Unknown Venipuncture / Unknown 06/24/2024 12:17 AM EDT 06/24/2024 12:31 AM EDT [employer] K Melvi PA LAB BLOOD ORDERABLES Final R esult Performing Organization Address [facility] Co de Phone Number [facility] [address] [phone] * Hemoglobin A1c (06/24/2024 12:17 AM EDT) Hemoglobin A1c 5.3 <5.7 % 06/24/2024 7:20 AM EDT [facility] Blood Venous blood specimen / Unknown Venipuncture / Unknown 06/24/2024 12:17 AM EDT 06/24/2024 12:31 AM EDT Narrative [facility] - 06/24/2024 7:20 AM EDT HA1C Interpretive Data: Diagnosis of Diabetes: Diabetic > or = 6.5% Pre-diabetic 5.7 to 6.4% Non-diabetic < or = 5.6% Glycemic Targets for Type I and Type II Diabetics: Non- Adults <7.0% Adults <6.0% Children and Adolescents <7.5% Source: [place] [employer]. Standards of medical care in diabetes,2017. Diabetes Care.2017:40 (suppl 1):S1-S135. KspliceShemar K Melvi PA LAB BLOOD ORDERABLES Final R esult Performing Organization Address [facility] Co de Phone Number [facility] [address] [place] [phone] from Last 3 Months or Most Recently [...] updated to appropriate status: Yes Care Teams On Call Relationship Specialty Start Date End Date Eric Maria MD [address] [place] [address] PCP - General 11/04/20
--- OUTSIDE RECORDS SUMMARY | 2024-12-04 10:07 | XMS_ITS | Encounter Summary ---
Author Organization [facility] Address [address] [place] [address] Care Team Providers Care Toll Service Observer Name Role Phone Eric Maria MD Primary Care Provider [phone] Encounter Details Date Type Department Care Team (Late st Contact Info) Description 05/26/2024 Orders Only External Location [address] [place] [address] Provider, External Social History Tobacco Use Types [...] Description 01/23/2025 9:45 AM EST Office Visit [place] [facility] [address], [address] [place] [address] Jennifer Barber, ULTRASOUND APPLICATIONS SPECIALIST, DNP [address] [place] [address] 02/28/2025 9:00 AM EST Office Visit [facility] [address], [address] [place] [address] Chu Null MD [address] [place] [address] 09/11/2025 10:00 AM EDT Ancillary Procedure [facility] Medicine Specialties [address], [address] [place] [address] 09/11/2025 11:00 AM EDT Office Visit [place] [address] [place] [address] Jeff Longoria MD [address] [place] [address] documented as of this encounter [...] documented as of this encounter Care Teams Toll Service Observer Relationship Specialty Start Date End Date Eric Maria MD [address] [place] [address] PCP - General 11/04/20 documented as of this encounter
--- OUTSIDE RECORDS SUMMARY | 2024-12-04 10:07 | XMS_ITS | Encounter Summary ---
Author Organization [employer] ([place], [place], [place], [place]) Address [address] [place] [address] Care Team Providers Care Clerical Office Name Role Phone Unavailable Primary Care Provider Unavailmacario e Encounter Details Date Type Department Care Team (Late st Contact Info) Description 01/10/2019 Transcribed Document [facility] Family Medicine [address] [place] [address] ProviderJose MD [address] [place], [place] [address] Social History Tobacco Use Types Packs/Day Years Used Date Smoking Tobacco: Never Assessed Sex and Gender Information Value Date Recorded Sex Assigned at Not on file Legal Sex Male 2:31 PM CDT Gender Identity Not on file Sexual Orientation Not on file documented as of this encounter Miscellaneous Notes * Cerner Conversion Note - Historical ProviderMD - 01/10/2019 2:00 AM DRUM REEL CUTTER Resistance Machine Welder Setter Details Entered On: 01/10/2019 1:28 EST Performed [...]
--- OUTSIDE RECORDS SUMMARY | 2024-12-04 10:07 | XMS_ITS | Encounter Summary ---
Author Organization [employer] ([place], [place], [place], [place]) Address [address] [place] [address] Care Team Providers Care Grinder Operator Automatic Name Role Phone Unavailable Primary Care Provider Unavailabl e Encounter Details Date Type Department Care Team (Late st Contact Info) Description 01/11/2019 Transcribed Document [facility] Family Medicine [address] [place] [address] ProviderJose MD [address] [place], [place] [address] Social History Tobacco Use Types Packs/Day Years Used Date Smoking Tobacco: Never Assessed Sex and Gender Information Value Date Recorded Sex Assigned at Not on file Legal Sex Male 2:31 PM CDT Gender Identity Not on file Sexual Orientation Not on file documented as of this encounter Miscellaneous Notes * Cerner Conversion Note - Historical ProviderMD - 01/11/2019 2:00 AM FILLING SEPARATOR Reinforcing Steel Placer Details Entered On: 01/11/2019 2:18 EST Performed [...]
--- OUTSIDE RECORDS SUMMARY | 2024-12-04 10:07 | XMS_ITS | Encounter Summary ---
Author Organization [facility] Address [address] [place] [address] Care Team Providers Care Elderly Companion Name Role Phone Eric Maria MD Primary Care Provider Encounter Details Date Type Department Care Team ([facility] st Contact Info) Description 06/24/2024 Lab Requisition [facility] [address] [place] [address] Mirza Reyna MD [address] [facility] [address] [place] [address] Encounter for general adult medical examination without [...] were you homeless or living in a detention (including now)? No 06/24/2024 Utilities Answer Date Recorded In the past 12 months has th e electric, gas, oil, or water [employer] threatened to shut off services in your [...] Description 01/23/2025 9:45 AM EST Office Visit [facility] [address], [address] [place] [address] Jennifer Barber APRN, OMAR [address] [facility] [address] [place] [address] 02/28/2025 9:00 AM EST Office Visit [facility] [address], [address]st [place] [address] Chu Null MD [address] [facility] [address] [place] [address] 09/11/2025 10:00 AM EDT Ancillary Procedure [place] [address], [address] [place] [address] 09/11/2025 11:00 AM EDT Office Visit [address], [address] [place] [address] Jeff Longoria MD [address] [place] [address] documented as of this encounter Procedures Procedure Name Priority Date/Time Associated Diagnosis Comments MULTI DRUG RESISTANCE TEST Routine 06/24/2024 12:00 PM EDT Encounter for general adult medical examination without abnormal findings documented in this encounter Results * Multi Drug Resistance Test (06/24/2024 12:00 PM EDT) Culture No Multi Drug Resistant Organisms Isolated 06/25/2024 1:21 PM EDT [facility] Swab (Nares and Dhara Rectal) 06/24/2024 12:00 PM EDT 06/24/2024 2:24 PM EDT us Mirza Reyna MD LAB MICROBIOLOGY - GEN ERAL ORDERABLES Final Result [facility] [address] [place] [address] documented in this encounter Visit Diagnoses Diagnosis [...] documented as of this encounter Care Teams Elderly Companion Relationship Specialty Start Date End Date Eric Maria MD [address] [place] [address] PCP - General 11/04/20 documented as of this encounter
--- OUTSIDE RECORDS SUMMARY | 2024-12-04 10:07 | XMS_ITS | Encounter Summary ---
Author Organization [employer] ([place], [place], [place], [place]) Address [address] [place] [address] Care Team Providers Care Stripper Black And White Name Role Phone Unavailable Primary Care Provider Unavailabl e Encounter Details Date Type Department Care Team (Late st Contact Info) Description 01/09/2019 Transcribed Document [facility] [place] [facility] [address] [place] [address] ProviderJose MD [address] [place] [address] Social History Tobacco Use Types Packs/Day Years Used Date Smoking Tobacco: Never Assessed Sex and Gender Information Value Date Recorded Sex Assigned at Not on file Legal Sex Male 2:31 PM CDT Gender Identity Not on file Sexual Orientation Not on file documented as of this encounter Miscellaneous Notes * Cerner Conversion Note - Jose ProviderMD - 01/09/2019 4:39 PM CRIMPING MACHINE OPERATOR FOR METAL Nutrition Assessment Entered On: 01/10/2019 11:30 EST [...] pain, non-STEMI PMH: CAD, questionable hx of [place], HTN, DM type 2, hypercholesterolemia, CVA Meds: [...]
--- OUTSIDE RECORDS SUMMARY | 2024-12-04 10:07 | XMS_ITS | Encounter Summary ---
Author Organization [employer] ([place], [place], [place], [place]) Address [address] [place] [address] Care Team Providers Care Senior Research Executive Name Role Phone Unavailable Primary Care Provider Unavailabl e Encounter Details Date Type Department Care Team (Late st Contact Info) Description 01/09/2019 Transcribed Document [facility] Family Medicine [address] [place] [address] ProviderJose MD [address] [place], [place] [id number] Social History Tobacco Use Types Packs/Day Years Used Date Smoking Tobacco: Never Assessed Sex and Gender Information Value Date Recorded Sex Assigned at Not on file Legal Sex Male 2:31 PM CDT Gender Identity Not on file Sexual Orientation Not on file documented as of this encounter Miscellaneous Notes * Cerner Conversion Note - Historical ProviderMD - 01/09/2019 4:39 PM CHIP MUCKER Cardiac and Pulmonary Outpatient [facility] Entered On: 01/17/2019 13:47 EST Performed On: 01/09/2019 16:39 EST by ADELAIDE CHOI RN Cardiac and Pulmonary Outpatient [facility] Cardiac Outpatient Rehab Evaluation Comment : Order faxed to [facility] due to pts location. ADELAIDE CHOI RN - 01/17/2019 13:46 EST Electronically signed by [facility] Conversion Performance Solutions Specialist Cerner at 06/23/2022 12:00 PM CDT documented in this encounter Plan of Treatment Not on file documented as of this encounter Visit Diagnoses Not on filedocumented in this encounter
--- OUTSIDE RECORDS SUMMARY | 2024-12-04 10:07 | XMS_ITS | Encounter Summary ---
Author Organization [employer] ([place], [place], [place], [place]) Address [address] [place] [address] Care Team Providers Care Fisher Lampara Net Name Role Phone Unavailable Primary Care Provider Unavailabl e Encounter Details Date Type Department Care Team (Late st Contact Info) Description 01/11/2019 Transcribed Document [facility] Family Medicine [address] [place] [address] ProviderJose MD [address] [place], [place] [id number] Social History Tobacco Use Types Packs/Day Years Used Date Smoking Tobacco: Never Assessed Sex and Gender Information Value Date Recorded Sex Assigned at Not on file Legal Sex Male 2:31 PM CDT Gender Identity Not on file Sexual Orientation Not on file documented as of this encounter Miscellaneous Notes * Cerner Conversion Note - Jose ProviderMD - 01/11/2019 11:48 AM METALS ANALYST Patient: KINGSTON POLLOCK Age: 68 years Sex: [...] Pain (Mild 1-3) Xarelto: 20 mg, Oral, [id number] Zofran: 4 mg, IV Push, Q6H, PRN: [...] mg tab 20 mg 1 Tab, Oral, [id number] valsartan 40 mg tab 40 mg 1 [...] At risk for sleep apnea / IMO 53155174 / Confirmed Atrial fibrillation / SNOMED CT 78816012 / Confirmed Pacemaker / SNOMED CT 1479914961 / Confirmed CAD (coronary artery disease) / SNOMED CT 20374206 / Confirmed CVA - Cerebrovascular accident / SNOMED CT 958402808 / Confirmed Diabetes mellitus / SNOMED CT 120138661 / Confirmed Hyperlipidemia / SNOMED CT 68596865 / Confirmed Hyperlipidemia / SNOMED CT 69973183 / Confirmed Hypertension / SNOMED CT 22164246 / Confirmed Prostate CA / SNOMED CT 8967887324 / Confirmed, Active Problems (10) At risk [...] EST Height Source Stated Height Entry Format [place] Height/Length, SWISS (ft) 5 ft Height/Length SWISS 9 Inch CLINICALHEIGHT 175.26 cm Routine Weight Source Standing scale Routine Weight Entry Format [place] Routine Weight, Pounds 162 lb Routine Weight, Ounces 7 oz Routine Weight Calculation 73.84 kg Body Mass Index (BMI), Routine 24.04 kg/m2 Body Surface Area (BSA), Routine 1.89 m2 01/10/2019 5:00 EST Height Source Stated Height Entry Format [place] Height/Length, SWISS (ft) 5 ft Height/Length SWISS 9 Inch CLINICALHEIGHT 175.26 cm Routine Weight Source Standing scale Routine Weight Entry Format [place] Routine Weight, Pounds 165 lb Routine Weight, [...] Gastrointestinal: Normal bowel sounds. Integumentary: Warm, Dry, [place]. Results Review General results Today's results 01/11/2019 [...] planned for them to see oncology in [facility]. AMS changes -ct head no acute [...]
--- OUTSIDE RECORDS SUMMARY | 2024-12-04 10:07 | XMS_ITS | Encounter Summary ---
Author Organization [employer] ([place], [place], [place], [place]) Address [address] [place] [address] Care Team Providers Care Locomotive Firer/Fireman Name Role Phone Unavailable Primary Care Provider Unavailabl e Encounter Details Date Type Department Care Team (Late st Contact Info) Description 01/11/2019 Transcribed Document [facility] Family Medicine [address] [place] [address] ProviderJose MD [address] [place], [place] [phone] Social History Tobacco Use Types Packs/Day Years Used Date Smoking Tobacco: Never Assessed Sex and Gender Information Value Date Recorded Sex Assigned at Not on file Legal Sex Male 2:31 PM CDT Gender Identity Not on file Sexual Orientation Not on file documented as of this encounter Miscellaneous Notes * Cerner Conversion Note - Jose Stokes MD - 01/11/2019 11:00 AM ADDICTION THERAPIST UM Authorization Entered On: 01/11/2019 11:01 EST Performed On: 01/11/2019 11:00 EST by KATHARINE MOREAU Rn-Utilization Review Primary Insurance Authorization Authorization and Policy Numbers : Insurance 1 Health Plan: R Policy Number: [id number] Authorization Number: Insurance 2 Health Plan: MEDICARE Policy Number: [id number] Authorization Number: Insurance Primary Name : [facility] [id number] Authorization Status-Primary : Pending clinicals Authorization Fax Number-Primary : [phone] Auth/Referral Phone Number-Primary : [phone] Auth/Referral Contact Name-Primary : Loren Reference Number-Primary : [id number] Authorized Service Begin Date-Primary : 01/11/2019 EST Authorization Comments-Primary : Clinicals faxed via [employer] to [phone] Historical Authorization Comments-Primary : Comment 1: rec'd call from Loren requesting clinicals be faxed to her [phone] fax [phone] (COLBY FABIAN, RN-Utilization Review 01/11/2019 10:04) Comment 2: Auth initiated on R portal. Awaiting call for clinicals. (KATHARINE MOREAU, Michael-Utilization Review 01/10/2019 10:02) KATHARINE MOREAU Rn-Utilization Review - 01/11/2019 11:00 EST documented in this encounter Plan of Treatment Not on file documented as of this encounter Visit Diagnoses Not on filedocumented in this encounter
--- OUTSIDE RECORDS SUMMARY | 2024-12-04 10:07 | XMS_ITS | Encounter Summary ---
Author Organization [employer] ([place], [place], [place], [place]) Address [address] [place] [address] Care Team Providers Care Correction Lieutenant Name Role Phone Unavailable Primary Care Provider Unavailabl e Encounter Details Date Type Department Care Team (Late st Contact Info) Description 01/09/2019 Transcribed Document [facility] [place] [address] [place] [address] ProviderJose MD [address] [place], [place] [id number] Social History Tobacco Use Types Packs/Day Years Used Date Smoking Tobacco: Never Assessed Sex and Gender Information Value Date Recorded Sex Assigned at Not on file Legal Sex Male 2:31 PM CDT Gender Identity Not on file Sexual Orientation Not on file documented as of this encounter Miscellaneous Notes * Cerner Conversion Note - Historical ProviderMD - 01/09/2019 6:30 PM DIE ENGRAVER Event Note Entered On: 01/09/2019 21:44 EST [...] dizziness, or new radiation of pain occur. Jaileen Calvillo RN - 01/09/2019 21:42 EST Electronically signed by [facility] Conversion Parcel Post Truck Driver Cerner at 06/23/2022 12:03 PM CDT documented in this encounter Plan of Treatment Not on file documented as of this encounter Visit Diagnoses Not on filedocumented in this encounter
--- OUTSIDE RECORDS SUMMARY | 2024-12-04 10:07 | XMS_ITS | Encounter Summary ---
Author Organization [employer] ([place], [place], [place], [place]) Address [address] [place] [address] Care Team Providers Care Asset Protection Greeter Name Role Phone Unavailable Primary Care Provider Unavailabl e Encounter Details Date Type Department Care Team (Late st Contact Info) Description 01/10/2019 Transcribed Document [facility] [place] Family Medicine [address] [place] [address] ProviderJose MD [address] [place] [address] Social History Tobacco Use Types Packs/Day Years Used Date Smoking Tobacco: Never Assessed Sex and Gender Information Value Date Recorded Sex Assigned at Not on file Legal Sex Male 2:31 PM CDT Gender Identity Not on file Sexual Orientation Not on file documented as of this encounter Miscellaneous Notes * [employer]ner Conversion Note - Historical ProviderMD - 01/10/2019 9:24 AM CHILD NUTRITION DIRECTOR Therapy Screen, PT Entered On: 01/10/2019 10:31 [...]
--- OUTSIDE RECORDS SUMMARY | 2024-12-04 10:07 | XMS_ITS | Encounter Summary ---
Author Organization [employer] ([place], [place], [place], [place]) Address [address] [place] [address] Care Team Providers Care Short Goods Drier Name Role Phone Unavailable Primary Care Provider Unavailabl e Encounter Details Date Type Department Care Team (Late st Contact Info) Description 01/11/2019 Transcribed Document [facility] Family Medicine [address] [place] [address] ProviderJose MD [address] [place], [place] [phone] Social History Tobacco Use Types Packs/Day Years Used Date Smoking Tobacco: Never Assessed Sex and Gender Information Value Date Recorded Sex Assigned at Not on file Legal Sex Male 2:31 PM CDT Gender Identity Not on file Sexual Orientation Not on file documented as of this encounter Miscellaneous Notes * Cerner Conversion Note - Jose Stokes MD - 01/11/2019 3:23 PM FORGING PRESS OPERATOR Patient Education Materials Follows: Heart-Healthy Eating [...] foods can I eat? Grains Breads, including Greenlandic, white, chencho, wheat, raisin, rye, oatmeal, and Israeli. Tortillas that are neither fried nor made with lard or trans fat. Low-fat rolls, including hotdog and hamburger buns and American muffins. Biscuits. Muffins. Waffles. Pancakes. Light popcorn. [...] cooking, baking, salads, and as spreads. Other [place] powder. Coffee and tea. All seasonings and [...] cottage cheese. Whole-milk cheeses, including blue (bettye), [place]win Rajendra, Brie, Antelmo, New Zealander, Havarti, Maldivian, cheddar, Camembert, and [place]. Whole or 2% milk that is liquid, [...] that has suet, meat fat, or shortening. [place] butter, hydrogenated oils, palm oil, coconut oil, [...] 08/21/2012 Document Revised: 07/28/2016 Document Reviewed: 08/14/2014 [employer] Interactive Patient Education ? 2019 [employer]Spring. Radial Site Care Refer to this sheet [...] 03/25/2011 Document Revised: 07/28/2016 Document Reviewed: 09/08/2014 [employer] Interactive Patient Education ? 2019 Elsevier Inc. [...] and water are not available, use hand landscape laborer. ? Change your dressing as told by [...] such as diabetes. General instructions ??? Take [id number] and prescription medicines only as told by [...] 09/09/2005 Document Revised: 11/17/2016 Document Reviewed: 11/17/2016 [employer] Interactive Patient Education ? 2019 [employer] Inc[employer] Non-ST Segment Elevation Heart Attack A [...] 01/28/2015 Elsevier Interactive Patient Education ? 2017 [employer] documented in this encounter Plan of Treatment Not on file documented as of this encounter Visit Diagnoses Not on filedocumented in this encounter
--- OUTSIDE RECORDS SUMMARY | 2024-12-04 10:07 | XMS_ITS | Encounter Summary ---
Author Organization [employer] ([place], [place], [place], [place]) Address [address] [place] [address] Care Team Providers Care Hedis Registered Nurse Rn Name Role Phone Unavailable Primary Care Provider Unavailabl e Encounter Details Date Type Department Care Team (Late st Contact Info) Description 01/09/2019 Transcribed Document [facility] Family Medicine [address] [place] [address] ProviderJose MD [address] [phone] Social History Tobacco Use Types Packs/Day Years Used Date Smoking Tobacco: Never Assessed Sex and Gender Information Value Date Recorded Sex Assigned at Not on file Legal Sex Male 2:31 PM CDT Gender Identity Not on file Sexual Orientation Not on file documented as of this encounter Miscellaneous Notes * [employer]ner Conversion Note - Historical ProviderMD - 01/09/2019 4:03 PM ICE HANDLER Admission History, Adult Entered On: 01/09/2019 16:47 [...] Nas Support Person/Pt Rep Contact Information : [phone] Want Family/Rep/Phys Notified of Admit : No Emergency Contact #1 : Noemi Pollock Emergency Contact #1 Emergency Contact #1 Relationship : spouse Emergency Contact #2 : Minal Bernardo Emergency Contact #2 Emergency Contact #2 Relationship : daughter Primary Language : Lao Preferred Communication Mode : Verbal Communication Barrier [...] Scale Risk Level : 0-24 Low Risk [place] Fall Interventions : Adequate lighting, Assistive devices [...] Source : Stated Height Entry Format : [place] Height, Feet : 5 ft(Converted to: 152 cm, 60 Inch) Height, Inches : 9 Inch(Converted to: 0 ft 9 Inch, 22.86 cm) Clinical Height : 175.26 cm Body Surface Area (BSA) : 1.92 m2 Body Mass Index : 24.9 kg/m2 (HI) [place] Body Weight : 70 kg Jailene Calvillo RN - 01/09/2019 19:02 EST Weight Source : Standing scale Weight Entry Format : [place] Clinical Dosing Weight : 76.53 kg Weight, [...] Jailene Calvillo RN - 01/09/2019 19:02 EST Electronically signed by Corey Bernardo Conversion Senior Environmental Consultant Cerner at 06/23/2022 12:03 PM CDT documented in this encounter Plan of Treatment Not on file documented as of this encounter Visit Diagnoses Not on filedocumented in this encounter
--- OUTSIDE RECORDS SUMMARY | 2024-12-04 10:07 | XMS_ITS | Encounter Summary ---
Author Organization [employer] ([place], [place], [place], [place]) Address [address] [place] [address] Care Team Providers Care Residential Team Leader Name Role Phone Unavailable Primary Care Provider Unavailabl e Encounter Details Date Type Department Care Team (Late st Contact Info) Description 01/11/2019 Transcribed Document [facility] [place] [address] [place] [address] ProviderJose MD [address] [place] [address] Social History Tobacco Use Types Packs/Day Years Used Date Smoking Tobacco: Never Assessed Sex and Gender Information Value Date Recorded Sex Assigned at Not on file Legal Sex Male 2:31 PM CDT Gender Identity Not on file Sexual Orientation Not on file documented as of this encounter Miscellaneous Notes * [employer] Conversion Note - Jose ProviderMD - 01/11/2019 2:58 PM BEHAVIORAL SPECIALIST Initial Discharge Planning Entered On: 01/11/2019 15:02 EST Performed On: 01/11/2019 14:58 EST by ADELAIDE QUIROZ, RN-Airplane Captain Initial Assessment I Previously Documented Living Environment : No qualifying data available. Living Situation : Home Patient Lives With : Spouse Is the Patient a Caregiver at Home? 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 : Yes Medical Durable Power of Project Hire Name : No Legal Guardian : No ADELAIDE QUIROZ, RN-Airplane Captain - 01/11/2019 14:58 EST Initial Assessment II Sensory and Motor Deficits : None Current Home Treatments and Equipment : None ADELAIDE QUIROZ, RN-Airplane Captain - 01/11/2019 14:58 EST Discharge Needs I Anticipated Discharge Date : 01/11/2019 EST Anticipated Discharge To, CM : Home independently, Home with family care Current Home Treatment/Equipment : Current Home Treatment/Equipment No qualifying data available. Post Acute/Home Treatments : None Documentation Status Complete : Yes ADELAIDE QUIROZ, RN-Airplane Captain - 01/11/2019 14:58 EST Discharge Needs II Professional Skilled Services : Professional Skilled Services No qualifying data available. Needs Assistance with Transportation : No Discharge Options Discussed with Patient : Discharge transportation, DME ADELAIDE QUIROZ, RN-Airplane Captain - 01/11/2019 14:58 EST Narrative Note Narrative Note : Prior to admission patient was independent in all areas. Patient has a pacemaker in place managed by Marco A Gavin in [place]. Patient has had an emotional time this admission as prior to this the patient was seen at the ER at a local place, the hospital in [place] and now here. During this time his tearfully shared with CM it was reported to them by [place] that an oncology consult would be needed due to findings on the CT scans. Home plan. ADELAIDE QUIROZ, RN-Airplane Captain - 01/11/2019 14:58 EST documented in this encounter Plan of Treatment Not on file documented as of this encounter Visit Diagnoses Not on filedocumented in this encounter
--- OUTSIDE RECORDS SUMMARY | 2024-12-04 10:07 | XMS_ITS | Encounter Summary ---
Author Organization [facility] Address [address] [place] [address] Care Team Providers Care Hand Packager Name Role Phone Eric Maria MD Primary Care Provider Encounter Details Date Type Department Care Team (Late st Contact Info) Description 05/25/2024 Orders Only External Location [address] [place] [address] Provider, External Social History Tobacco Use Types [...] Description 01/23/2025 9:45 AM EST Office Visit [facility] [address], [address] [place] [address] Jennifer Barber, LICENSING ANALYST, DNP [address] [place] [address] 02/28/2025 9:00 AM EST Office Visit [facility] [address], [address] [place] [address] Chu Null MD [address] [place] [address] 09/11/2025 10:00 AM EDT Ancillary Procedure [facility] Medicine Specialties [address], 2nd [place] [address] 09/11/2025 11:00 AM EDT Office Visit [place] [address], 2[address] [place] [address] Jeff Longoria MD [address] [place] [address] documented as of this encounter [...] documented as of this encounter Care Teams Hand Packager Relationship Specialty Start Date End Date Eric Maria MD [address] [place] [address] PCP - General 11/04/20 documented as of this encounter
--- OUTSIDE RECORDS SUMMARY | 2024-12-04 10:07 | XMS_ITS | Encounter Summary ---
Author Organization [employer] ([place], [place], [place], [place]) Address [address] [place] [address] Care Team Providers Care Merchandise Manager Name Role Phone Unavailable Primary Care Provider Unavailabl e Encounter Details Date Type Department Care Team (Late st Contact Info) Description 01/11/2019 Transcribed Document [facility] Family Medicine [address] [place] [address] ProviderJose MD [address] [place] [address] Social History Tobacco Use Types Packs/Day Years Used Date Smoking Tobacco: Never Assessed Sex and Gender Information Value Date Recorded Sex Assigned at Not on file Legal Sex Male 2:31 PM CDT Gender Identity Not on file Sexual Orientation Not on file documented as of this encounter Miscellaneous Notes * Cerner Conversion Note - Historical ProviderMD - 01/11/2019 5:00 AM MELT SUPERINTENDANT Chart Check - Review Order Profile Entered On: 01/11/2019 5:12 EST Performed On: 01/11/2019 5:00 EST by Rowan Salcedo RN Chart Check Powerplans Initiated/Discontinued as Appropriate : Yes All Active Orders Reviewed : Yes Rowan Salcedo RN - 01/11/2019 5:12 EST Electronically signed by [facility] Conversion Assistant Activities Director Cerner at 06/23/2022 12:05 PM CDT documented in this encounter Plan of Treatment Not on file documented as of this encounter Visit Diagnoses Not on filedocumented in this encounter
--- OUTSIDE RECORDS SUMMARY | 2024-12-04 10:07 | XMS_ITS | Encounter Summary ---
Author Organization [employer] ([place], [place], [place], [place]) Address [address] [place] [address] Care Team Providers Care Juice Bar Team Member Name Role Phone Unavailable Primary Care Provider Unavailabl e Encounter Details Date Type Department Care Team (Late st Contact Info) Description 01/11/2019 Transcribed Document [facility] [address] [place] [address] ProviderJose MD [address] [place], [place] [id number] Social History Tobacco Use Types Packs/Day Years Used Date Smoking Tobacco: Never Assessed Sex and Gender Information Value Date Recorded Sex Assigned at Not on file Legal Sex Male 2:31 PM CDT Gender Identity Not on file Sexual Orientation Not on file documented as of this encounter Miscellaneous Notes * Cerner Conversion Note - Historical ProviderMD - 01/11/2019 3:57 PM YEAST PUSHER Nursing Discharge Summary Entered On: 01/11/2019 15:58 EST Performed On: 01/11/2019 15:57 EST by Jailene Calvillo precision lens technician Documentation Discharge Date/Time : 01/11/2019 15:50 EST [...] - 01/11/2019 15:57 EST Electronically signed by [facility] Conversion Brush Loader And Handle Attacher Cerner at 06/23/2022 11:58 AM CDT documented in this encounter Plan of Treatment Not on file documented as of this encounter Visit Diagnoses Not on filedocumented in this encounter
--- OUTSIDE RECORDS SUMMARY | 2024-12-04 10:07 | XMS_ITS | Encounter Summary ---
Author Organization [facility] Address [address] [place] [address] Care Team Providers Care Assessment Analyst Name Role Phone Eric Maria MD Primary Care Provider Encounter Details Date Type Department Care Team (Late st Contact Info) Description 05/26/2024 Orders Only External Location [address] [place] [address] Provider, External Social History Tobacco Use Types [...] Description 01/23/2025 9:45 AM EST Office Visit [facility] [address], [address] [place] [address] Jennifer Barber, CARGO AGENT, DNP [address] [place] [address] 02/28/2025 9:00 AM EST Office Visit [facility] [address], [address] [place] [address] Chu Null MD [address] [place] [address] 09/11/2025 10:00 AM EDT Ancillary Procedure [facility] Medicine Specialties [address], [address] [place] [address] 09/11/2025 11:00 AM EDT Office Visit [place] [address], [address] [place] [address] Jeff Longoria MD [address] [place] [address] documented as of this encounter [...] documented as of this encounter Care Teams Assessment Analyst Relationship Specialty Start Date End Date Eric Maria MD [address] [place] [address] PCP - General 11/04/20 documented as of this encounter
--- OUTSIDE RECORDS SUMMARY | 2024-12-04 10:07 | XMS_ITS | Encounter Summary ---
Author Organization [facility] Address [address] [place] [address] Care Team Providers Care Safe Technician Name Role Phone Eric Maria MD Primary Care Provider [phone] Encounter Details Date Type Department Care Team (Late st Contact Info) Description 05/25/2024 Orders Only External Location [address] [place] [address] Provider, External Social History Tobacco Use Types [...] Description 01/23/2025 9:45 AM EST Office Visit [facility] [address], [address]nd [place] [address] Jennifer Barber, MAINTENANCE CHIEF, DNP [address] [place] [address] 02/28/2025 9:00 AM EST Office Visit [facility] [address], [address] [place] [address] Chu Null MD [address] [place] [address] 09/11/2025 10:00 AM EDT Ancillary Procedure [facility] Medicine Specialties [address], [address] [place] [address] 09/11/2025 11:00 AM EDT Office Visit [facility] [address], [address] [place] [address] Jeff Longoria MD [address] [place] [address] documented as of this encounter [...] documented as of this encounter Care Teams Safe Technician Relationship Specialty Start Date End Date Eric Maria MD [address] [place] [address] PCP - General 11/04/20 documented as of this encounter
--- OUTSIDE RECORDS SUMMARY | 2024-12-04 10:07 | XMS_ITS | Encounter Summary ---
Author Organization [employer] ([place], [place], [place], [place]) Address [address] [place] [address] Care Team Providers Care Display Decorator Name Role Phone Unavailable Primary Care Provider Unavailabl e Encounter Details Date Type Department Care Team (Late st Contact Info) Description 01/11/2019 Transcribed Document [facility] Family Medicine [address] [place] [address] ProviderJose MD [address] [place], [place] [phone] Social History Tobacco Use Types Packs/Day Years Used Date Smoking Tobacco: Never Assessed Sex and Gender Information Value Date Recorded Sex Assigned at Not on file Legal Sex Male 2:31 PM CDT Gender Identity Not on file Sexual Orientation Not on file documented as of this encounter Miscellaneous Notes * Cerner Conversion Note - Historical ProviderMD - 01/11/2019 5:00 AM EQUIP MAINT ENG Height and Weight, Routine Entered On: 01/11/2019 4:47 EST Performed On: 01/11/2019 5:00 EST by Aleida Philippe CNA Height and Weight, Routine Routine Weight Source : Standing scale Routine Weight Entry Format : Winkler Routine Weight, Pounds : 162 lb Routine Weight, Ounces : 7 oz Routine Weight Calculation : 73.84 kg Height Source : Stated Height Entry Format : Winkler Height, Feet : 5 ft Height, Inches : 9 Inch Clinical Height : 175.26 cm Body Surface Area (BSA), Routine : 1.89 m2 Body Mass Index (BMI), Routine : 24.04 kg/m2 Aleida Philippe CNA - 01/11/2019 4:46 EST Electronically signed by [facility] Conversion Patient Account Representative Cerner at 06/23/2022 11:52 AM CDT documented in this encounter Plan of Treatment Not on file documented as of this encounter Visit Diagnoses Not on filedocumented in this encounter
--- OUTSIDE RECORDS SUMMARY | 2024-12-04 10:07 | XMS_ITS | Encounter Summary ---
Author Organization [facility] Address [address] [place] [address] Care Team Providers Care Induction Machine Operator Name Role Phone Eric Maria MD Primary Care Provider Encounter Details Date Type Department Care Team (Late st Contact Info) Description 05/27/2024 Orders Only External Location [address] [place] [address] Provider, External Social History Tobacco Use Types [...] Description 01/23/2025 9:45 AM EST Office Visit [facility] [address], [address] [place] [address] Jennifer Barber, FINISHER MAP AND CHART, DNP [address] [place] [address] 02/28/2025 9:00 AM EST Office Visit [facility] [address], [address] [place] [address] Chu Null MD [address] [place] [address] 09/11/2025 10:00 AM EDT Ancillary Procedure [facility] Medicine Specialties [address], [address] [place] [address] 09/11/2025 11:00 AM EDT Office Visit [place] [address], [address] [place] [address] Jeff Longoria MD [address] [place] [address] documented as of this encounter [...] documented as of this encounter Care Teams Induction Machine Operator Relationship Specialty Start Date End Date Eric Maria MD [address] [place] [address] PCP - General 11/04/20 documented as of this encounter
--- OUTSIDE RECORDS SUMMARY | 2024-12-04 10:07 | XMS_ITS | Encounter Summary ---
Author Organization [employer] ([place], [place], [place], [place]) Address [address] [place] [address] Care Team Providers Care Recruitment Manager Name Role Phone Unavailable Primary Care Provider Unavailabl e Encounter Details Date Type Department Care Team (Late st Contact Info) Description 01/11/2019 Transcribed Document [facility] [place] [address] [place] [address] ProviderJose MD [address] [place] [address] Social History Tobacco Use Types Packs/Day Years Used Date Smoking Tobacco: Never Assessed Sex and Gender Information Value Date Recorded Sex Assigned at Not on file Legal Sex Male 2:31 PM CDT Gender Identity Not on file Sexual Orientation Not on file documented as of this encounter Miscellaneous Notes * Cerner Conversion Note - Jose Stokes MD - 01/11/2019 3:23 PM THERMITE BOMB LOADER [place] [id number] [place] :1950 Visit Time:01/09/2019 Your Visit Summary Your [...] need ot follow up with pcp in [facility] for [facility]acer gul[facility]an When Within 2 to 3 days Follow Up with GERARDO RICHARDSON When Within 2 weeks Comments Office to call with appoint/instructions cbc check for blood counts in 2 weeks Where: [facility] [address] [place] [phone] (1) Medications What How Much When Instructions Next Dose carvedilol (Coreg 3.125 mg oral tablet) 1 Tablet(s) Oral Two Times A Day [facility] clopidogrel (clopidogrel 75 mg oral tablet) 1 Tablet(s) Oral Every Day [facility] nitroglycerin (Nitrostat 0.4 mg sublingual tablet) 1 Tablet(s) SubLINgual Every 5 minutes as needed for as needed for chest pain [facility] rivaroxaban (Xarelto 20 mg oral tablet) 1 Tablet(s) Oral Interval Every 24 Hours valsartan (Diovan 40 mg oral tablet) 1 Tablet(s) Oral Every Day [facility] PRAVAstatin (Pravachol 80 mg oral tablet) 1 Tablet(s) Oral Every Day [facility] aspirin (aspirin 81 mg oral tablet) 1 Tablet(s) Oral Every Day [facility] glipiZIDE (glipiZIDE 10 mg oral tablet, extended release) 1 Tablet(s) Oral Twice a Day Before Meals insulin detemir (Levemir FlexPen 100 units/ mL subcutaneous solution) 30 Unit(s) SubCutaneous At Bedtime metformin (metformin 1000 mg oral tablet) 1 Tablet(s) Oral Two Times A Day hold until friday 01/12 [facility] [address] [place], [place] [id number] [phone] Take your medications faithfully. Do NOT skip [...] foods can I eat? Grains Breads, including American, white, chencho, wheat, raisin, rye, oatmeal, and Romansh. Tortillas that are neither fried nor made with lard or trans fat. Low-fat rolls, including hotdog and hamburger buns and Uzbek muffins. Biscuits. Muffins. Waffles. Pancakes. Light popcorn. [...] cooking, baking, salads, and as spreads. Other [place] powder. Coffee and tea. All seasonings and [...] cottage cheese. Whole-milk cheeses, including blue (bettye), [place] Rajendra, Brie, Antelmo, Burundian, Havarti, Cambodian, cheddar, Camembert, and Bartlett. Whole or 2% milk that is liquid, [...] that has suet, meat fat, or shortening. [place] butter, hydrogenated oils, palm oil, coconut oil, [...] 08/21/2012 Document Revised: 07/28/2016 Document Reviewed: 08/14/2014 [employer] Interactive Patient Education ?? 2019 [employer] Radial Site Care Refer to this [...] 03/25/2011 Document Revised: 07/28/2016 Document Reviewed: 09/08/2014 [employer] Interactive Patient Education ?? 2019 [employer] Coronary Angiogram With Stent, Care After [...] and water are not available, use hand video coordinator. ? Change your dressing as told by [...] such as diabetes. General instructions ??? Take uode-ium-znhjfwc and prescription medicines only as told by [...] 09/09/2005 Document Revised: 11/17/2016 Document Reviewed: 11/17/2016 [employer] Interactive Patient Education ?? 2019 [employer] Non-ST Segment Elevation Heart Attack A [...] 09/19/2005 Document Revised: 05/14/2012 Document Reviewed: 01/28/2015 [employer] Interactive Patient Education ?? 2017 [email or web address]. pravastatin (PRAV a STAT in) Pravachol What [...] may report side effects to FDA at 2-131-DZJ-5937. What other drugs will affect pravastatin? Using [...] may interact with pravastatin, including prescription and alro-rgh-avcmkmd medicines, vitamins, and herbal products. Not all [...] to ensure that the information provided by [employer]. ('[employer]') is accurate, up-to-date, and complete, but no guarantee is made to that effect. Drug information contained herein may be time sensitive. [facility] [employer] [facility] information has been compiled for use by healthcare practitioners and consumers in the [place] and therefore [employer] does not warrant that uses outside of the [place] are appropriate, unless specifically indicated otherwise. [employer]'s drug information does not endorse drugs, diagnose patients or recommend therapy. [employer] drug information is an informational resource designed [...] effective or appropriate for any given patient. [facility] [employer] [facility] does not assume any responsibility for any aspect of healthcare administered with the aid of information [employer] [facility] provides. The information contained herein is not intended to cover all possible uses, directions, precautions, warnings, drug interactions, allergic reactions, or adverse effects. If you have questions about the drugs you are taking, check with your doctor, nurse or pharmacist. Copyright 8007-8165 [employer]. Version: 13.01. Revision Date: 10/21/2015. valsartan (hernan [...] disease; ?? if you are on a iei-ibnx-fakz; or ?? if you have ever had [...] may report side effects to FDA at 4-888-OXF-4011. What other drugs will affect valsartan? Tell [...] drugs may affect valsartan, including prescription and efvp-nxl-gjdcmbp medicines, vitamins, and herbal products. Not all [...] to ensure that the information provided by [employer]. ('[employer]') is accurate, up-to-date, and complete, but no guarantee is made to that effect. Drug information contained herein may be time sensitive. [facility] [employer] [facility] information has been compiled for use by healthcare practitioners and consumers in the [place] and therefore [employer] does not warrant that uses outside of the [place] are appropriate, unless specifically indicated otherwise. [employer] drug information does not endorse drugs, diagnose patients or recommend therapy. [employer] drug information is an informational resource designed [...] effective or appropriate for any given patient. [facility] [employer] [facility] does not assume any responsibility for any aspect of healthcare administered with the aid of information [employer] provides. The information contained herein is not intended to cover all possible uses, directions, precautions, warnings, drug interactions, allergic reactions, or adverse effects. If you have questions about the drugs you are taking, check with your doctor, nurse or pharmacist. Copyright 5225-2343 [employer]. Version: 17.02. Revision Date: 05/31/2018. aspirin (oral) [...] What is aspirin? Aspirin is a salicylate (ge-CXZ-kl-ate). It works by reducing substances in the [...] may report side effects to FDA at 4-760-ULJ-5334. What other drugs will affect aspirin? Ask [...] drugs may affect aspirin, including prescription and hmki-clr-igmqnbt medicines, vitamins, and herbal products. Not all [...] to ensure that the information provided by [employer]. ('[employer]') is accurate, up-to-date, and complete, but no guarantee is made to that effect. Drug information contained herein may be time sensitive. [facility] [employer] information has been compiled for use by healthcare practitioners and consumers in the [place] and therefore [employer] does not warrant that uses outside of the [place] are appropriate, unless specifically indicated otherwise. [employer] drug information does not endorse drugs, diagnose patients or recommend therapy. [employer] drug information is an informational resource designed [...] effective or appropriate for any given patient. [facility] does not assume any responsibility for any aspect of healthcare administered with the aid of information [facility] provides. The information contained herein is not intended to cover all possible uses, directions, precautions, warnings, drug interactions, allergic reactions, or adverse effects. If you have questions about the drugs you are taking, check with your doctor, nurse or pharmacist. Copyright 9691-3564 [facility] [employer]. Version: 15.. Revision Date: 06/05/2017. clopidogrel (kloe [...] may report side effects to FDA at 9-056-VBY-0733. What other drugs will affect clopidogrel? Certain other medicines may increase your risk of bleeding, including aspirin. Avoid taking aspirin unless your doctor tells you to. Tell your doctor about all your other medicines, especially: ?? any other medicines to treat or prevent blood clots; ?? a stomach acid architecture intern such as omeprazole, Nexium, or Prilosec; ?? an antidepressant; ?? an opioid medication; ?? a blood thinner--warfarin, Coumadin, Jantoven; or ?? NSAIDs (nonsteroidal anti-inflammatory drugs)--ibuprofen (Advil, Motrin), naproxen (Aleve), celecoxib, diclofenac, indomethacin, meloxicam, and others. This list is not complete. Other drugs may affect clopidogrel, including prescription and wzan-wwu-jmsvpyp medicines, vitamins, and herbal products. Not all [...] to ensure that the information provided by [employer]. ('[employer]') is accurate, up-to-date, and complete, but no guarantee is made to that effect. Drug information contained herein may be time sensitive. [facility] [employer] [facility] information has been compiled for use by healthcare practitioners and consumers in the [place] and therefore [facility] [employer] [facility] does not warrant that uses outside of the [place] are appropriate, unless specifically indicated otherwise. [employer] drug information does not endorse drugs, diagnose patients or recommend therapy. [employer] drug information is an informational resource designed [...] effective or appropriate for any given patient. [facility] does not assume any responsibility for any aspect of healthcare administered with the aid of information [facility] provides. The information contained herein is not intended to cover all possible uses, directions, precautions, warnings, drug interactions, allergic reactions, or adverse effects. If you have questions about the drugs you are taking, check with your doctor, nurse or pharmacist. Copyright 6036-3220 [employer]. Version: 15.. Revision Date: 12/25/2017. carvedilol (HEIDY [...] may report side effects to FDA at 9-792-KGY-6148. What other drugs will affect carvedilol? Sometimes it is not safe to use certain medications at the same time. Some drugs can affect your blood levels of other drugs you take, which may increase side effects or make the medications less effective. Other drugs may affect carvedilol, including prescription and cdie-sxn-aaeykal medicines, vitamins, and herbal products. Tell your [...]
--- OUTSIDE RECORDS SUMMARY | 2024-12-04 10:07 | XMS_ITS | Encounter Summary ---
Author Organization [facility] Address [address] [place] [address] Care Team Providers Care Paper Rewinder Operator Name Role Phone Eric Maria MD Primary Care Provider [phone] Encounter Details Date Type Department Care Team [...] and Family Not on file 06/24/2024 Attends [employer] Not on file 06/24 Active Member [...] any time in the past 12 m [facility], were you homeless or living in [...] Description 01/23/2025 9:45 AM EST Office Visit [facility] Medicine Specialties [address], [address] [place] [address] Jennifer Barber APRN, DNP [address] [facility] [address] [place] [address] 02/28/2025 9:00 AM EST Office Visit [facility] [address], [address] [place] [address] Chu Null MD [address] [place] [address] 09/11/2025 10:00 AM EDT Ancillary Procedure [facility] [address] [place] [address] 09/11/2025 11:00 AM EDT Office Visit [facility] [address], [address] [place] [address] Jeff Longoria MD [address] [place] [address] documented as of this encounter [...] documented as of this encounter Care Teams Paper Rewinder Operator Relationship Specialty Start Date End Date Eric Maria MD [address] [place] [address] PCP - General 11/04/20 documented as of this encounter
--- OUTSIDE RECORDS SUMMARY | 2024-12-04 10:07 | XMS_ITS | Encounter Summary ---
Author Organization [employer] ([place], [place], [place], [place]) Address [address] [place] [address] Care Team Providers Care Wharf Tender Head Name Role Phone Unavailable Primary Care Provider Unavailabl e Encounter Details Date Type Department Care Team (Late st Contact Info) Description 01/10/2019 Transcribed Document [facility] [place] Family Medicine [address] [place] [address] ProviderJose MD [address] [place] [address] Social History Tobacco Use Types Packs/Day Years Used Date Smoking Tobacco: Never Assessed Sex and Gender Information Value Date Recorded Sex Assigned at Not on file Legal Sex Male 2:31 PM CDT Gender Identity Not on file Sexual Orientation Not on file documented as of this encounter Miscellaneous Notes * Cerner Conversion Note - Historical ProviderMD - 01/10/2019 5:00 AM BUTTER LIQUEFIER Height and Weight, Routine Entered On: 01/10/2019 6:08 EST Performed On: 01/10/2019 5:00 EST by Mitesh Hanson Cna I Height and Weight, Routine Routine Weight Source : Standing scale Routine Weight Entry Format : [place] Routine Weight, Pounds : 165 lb Routine Weight, Ounces : 8 oz Routine Weight Calculation : 75.23 kg Height Source : Stated Height Entry Format : [place] Height, Feet : 5 ft Height, Inches : 9 Inch Clinical Height : 175.26 cm Body Surface Area (BSA), Routine : 1.91 m2 Body Mass Index (BMI), Routine : 24.49 kg/m2 Mitesh Hanson Cna I - 01/10/2019 6:08 EST Electronically signed by Az [facility] Conversion Etl Informatica Developer Cerner at 06/23/2022 12:05 PM CDT documented in this encounter Plan of Treatment Not on file documented as of this encounter Visit Diagnoses Not on filedocumented in this encounter
--- OUTSIDE RECORDS SUMMARY | 2024-12-04 10:07 | XMS_ITS | Encounter Summary ---
Author Organization [employer] ([place], [place], [place], [place]) Address [address] [place] [address] Care Team Providers Care Press Helper Name Role Phone Unavailable Primary Care Provider Unavailabl e Encounter Details Date Type Department Care Team (Late st Contact Info) Description 01/09/2019 Transcribed Document [facility] [place] [address] [place] [address] ProviderJose MD [address] [place], [place] [id number] Social History Tobacco Use Types Packs/Day Years Used Date Smoking Tobacco: Never Assessed Sex and Gender Information Value Date Recorded Sex Assigned at Not on file Legal Sex Male 2:31 PM CDT Gender Identity Not on file Sexual Orientation Not on file documented as of this encounter Miscellaneous Notes * Cerner Conversion Note - Jose ProviderMD - 01/09/2019 4:39 PM SERVER CASHIER Pain Assessment Entered On: 01/11/2019 0:03 EST [...]
--- OUTSIDE RECORDS SUMMARY | 2024-12-04 10:08 | XMS_ITS | Encounter Summary ---
Author Organization [employer] ([place], [place], [place], [place]) Address [address] [place] [address] Care Team Providers Care Intake Specialist Name Role Phone Unavailable Primary Care Provider Unavailabl e Encounter Details Date Type Department Care Team (Late st Contact Info) Description 01/10/2019 Transcribed Document [facility] [place] Medicine [address] [place] [address] ProviderJose MD [address] [place] [address] Social History Tobacco Use Types Packs/Day Years Used Date Smoking Tobacco: Never Assessed Sex and Gender Information Value Date Recorded Sex Assigned at Not on file Legal Sex Male 2:31 PM CDT Gender Identity Not on file Sexual Orientation Not on file documented as of this encounter Miscellaneous Notes * Cerner Conversion Note - Historical ProviderMD - 01/10/2019 8:05 AM GARDEN EQUIPMENT MECHANIC Tube Coremaker Details Entered On: 01/10/2019 8:05 EST Performed [...]
--- OUTSIDE RECORDS SUMMARY | 2024-12-04 10:08 | XMS_ITS | Encounter Summary ---
Author Organization [employer] ([place], [place], [place], [place]) Address [address] [place] [address] Care Team Providers Care Route Deliverer Name Role Phone Unavailable Primary Care Provider Unavailabl e Encounter Details Date Type Department Care Team (Late st Contact Info) Description 01/10/2019 Transcribed Document [facility] [place] Family Medicine [address] [place] [address] ProviderJose MD [address] [place], [place] [id number] Social History Tobacco Use Types Packs/Day Years Used Date Smoking Tobacco: Never Assessed Sex and Gender Information Value Date Recorded Sex Assigned at Not on file Legal Sex Male 2:31 PM CDT Gender Identity Not on file Sexual Orientation Not on file documented as of this encounter Miscellaneous Notes * Cerner Conversion Note - Historical ProviderMD - 01/10/2019 11:16 [address]BOR DEPARTMENT MANAGER [facility] OT Charges Entered On: 01/10/2019 11:16 EST Performed On: 01/10/2019 11:16 EST by KIM GUZMAN OTR/Jamilah Loving OT Charges Screen For Construction Electrician : 1 KIM GUZMAN OTR/Jamilah - 01/10/2019 11:16 EST Electronically signed by Shay Bernardo Conversion Piano Case And Bench Assembler Cerner at 06/23/2022 11:55 AM CDT documented in this encounter Plan of Treatment Not on file documented as of this encounter Visit Diagnoses Not on filedocumented in this encounter
--- OUTSIDE RECORDS SUMMARY | 2024-12-04 10:08 | XMS_ITS | Encounter Summary ---
Author Organization [employer] ([place], [place], [place], [place]) Address [address] [place] [address] Care Team Providers Care Pattern Technician Name Role Phone Unavailable Primary Care Provider Unavailabl e Encounter Details Date Type Department Care Team (Late st Contact Info) Description 01/10/2019 Transcribed Document [facility] [place] Family Medicine [address] [place] [address] ProviderJose MD [address] [place], [place] [id number] Social History Tobacco Use Types Packs/Day Years Used Date Smoking Tobacco: Never Assessed Sex and Gender Information Value Date Recorded Sex Assigned at Not on file Legal Sex Male 2:31 PM CDT Gender Identity Not on file Sexual Orientation Not on file documented as of this encounter Miscellaneous Notes * Cerner Conversion Note - Historical ProviderMD - 01/10/2019 9:24 AM CAMP MAINTENANCE SUPERVISOR [facility] PT Charges Entered On: 01/10/2019 [...]
--- OUTSIDE RECORDS SUMMARY | 2024-12-04 10:08 | XMS_ITS | Encounter Summary ---
Author Organization [employer] ([place], [place], [place], [place]) Address [address] [place] [address] Care Team Providers Care Installations Inspector Name Role Phone Unavailable Primary Care Provider Unavailabl e Encounter Details Date Type Department Care Team (Late st Contact Info) Description 01/10/2019 Transcribed Document [facility] [place] Family Medicine [address] [place] [address] ProviderJose MD [address] [place], [place] [address] Social History Tobacco Use Types Packs/Day Years Used Date Smoking Tobacco: Never Assessed Sex and Gender Information Value Date Recorded Sex Assigned at Not on file Legal Sex Male 2:31 PM CDT Gender Identity Not on file Sexual Orientation Not on file documented as of this encounter Miscellaneous Notes * Cerner Conversion Note - Jose ProviderMD - 01/10/2019 10:02 AM WET PLANT OPERATOR UM Authorization Entered On: 01/10/2019 10:04 EST Performed On: 01/10/2019 10:02 EST by KATHARINE MOREAU Rn-Utilization Review Primary Insurance Authorization Authorization and Policy Numbers : Insurance 1 Health Plan: R Policy Number: [id number] Authorization Number: Insurance 2 Health Plan: MEDICARE Policy Number: [id number] Authorization Number: Insurance Primary Name : R Authorization Status-Primary : Pending clinicals Authorized Service Begin Date-Primary : 01/11/2019 EST Authorization Comments-Primary : Auth initiated on [facility] portal. Awaiting call for clinicals. Historical Authorization Comments-Primary : No Authorization Comments Found KATHARINE MOREAU Rn-Utilization Review - 01/10/2019 10:02 EST Electronically signed by Shay Bernardo Conversion Hand Frame Surgical Elastic Knitter Cerner at 06/23/2022 11:53 AM CDT documented in this encounter Plan of Treatment Not on file documented as of this encounter Visit Diagnoses Not on filedocumented in this encounter
--- OUTSIDE RECORDS SUMMARY | 2024-12-04 10:08 | XMS_ITS | Encounter Summary ---
Author Organization [employer] ([place], [place], [place], [place]) Address [address] [place] [address] Care Team Providers Care Review Assistant Name Role Phone Unavailable Primary Care Provider Unavailabl e Encounter Details Date Type Department Care Team (Late st Contact Info) Description 01/10/2019 Transcribed Document [facility] [place] Family Medicine [facility] [address] ProviderJose MD [address] [place] [address] Social History Tobacco Use Types Packs/Day Years Used Date Smoking Tobacco: Never Assessed Sex and Gender Information Value Date Recorded Sex Assigned at Not on file Legal Sex Male 2:31 PM CDT Gender Identity Not on file Sexual Orientation Not on file documented as of this encounter Miscellaneous Notes * Cerner Conversion Note - Jose Stokes MD - 01/10/2019 3:28 PM FACILITIES OPERATOR DATE OF SERVICE: 01/10/2019 PROCEDURES: 1. Left [...] PROCEDURE: The patient was brought to heart color laboratory technician where the right wrist was anesthetized with [...] then question of ICD will be raised. /[id number] MD BLAISE Krishnan/TOM / BLAISE / MODL /[id number] documented in this encounter Plan of Treatment Not on file documented as of this encounter Visit Diagnoses Not on filedocumented in this encounter
--- OUTSIDE RECORDS SUMMARY | 2024-12-04 10:08 | XMS_ITS | Encounter Summary ---
Author Organization [employer] ([place], [place], [place], [place]) Address [address] [place] [address] Care Team Providers Care Dredge Pipe Operator Name Role Phone Unavailable Primary Care Provider Unavailabl e Encounter Details Date Type Department Care Team (Late st Contact Info) Description 01/10/2019 Transcribed Document [facility] [place] Medicine [address] [place] [address] ProviderJose MD [address] [place] [address] Social History Tobacco Use Types Packs/Day Years Used Date Smoking Tobacco: Never Assessed Sex and Gender Information Value Date Recorded Sex Assigned at Not on file Legal Sex Male 2:31 PM CDT Gender Identity Not on file Sexual Orientation Not on file documented as of this encounter Miscellaneous Notes * Cerner Conversion Note - Historical ProviderMD - 01/10/2019 7:02 AM CASHIERS BUSSERS FOOD RUNNERS Event Note Entered On: 01/10/2019 7:03 EST [...]
--- OUTSIDE RECORDS SUMMARY | 2024-12-04 10:08 | XMS_ITS | Encounter Summary ---
Author Organization [facility] Address [address] [place] [address] Care Team Providers Care Editing Intern Name Role Phone Eric Maria MD Primary Care Provider [phone] Encounter Details Date Type Department Care Team (Late st Contact Info) Description 11/21/2024 Telephone [place] [facility] [address], [address] [place] [address] Chu Null MD [address] [place] [address] Social History Tobacco Use Types [...] and Family Not on file 06/24/2024 Attends [employer] Not on file 06/24 Active [...] the past 12 months has th e Sentiment, gas, oil, or water [employer] threatened to shut off services in your [...] Patient spouse calling states pt currently in [facility] since Monday was given 30 bags of potassium along with other issues, please call to advise on plan of care Best contact number and optimal time of day to reach caller: [phone] Note: Please do not reply to this message. Follow-up communication and further actions as a result of this message need to be communicated with the patient directly, if the patient is not active onMyChart. If the patient is active on MyChart, they will receive notification of the communication/outcome via [employer]. documented in this encounter Plan of Treatment Upcoming Encounters Date Type Department Care Team (Late st Contact Info) Description 01/23/2025 9:45 AM EST Office Visit [facility] Medicine Specialties [address] [place] [phone] Jennifer Barber APRN, OMAR [address] [place] [id number] 02/28/2025 9:00 AM EST Office Visit [facility] [address] [place] [phone] Chu Null MD [address] [place] [address] 09/11/2025 10:00 AM EDT Ancillary Procedure [facility] Medicine Specialties [address] [place] [address] 09/11/2025 11:00 AM EDT Office Visit [facility] Medicine Specialties [address] [place] [address] Jeff Longoria MD [address] [place] [address] documented as of this encounter [...] documented as of this encounter Care Teams Editing Intern Relationship Specialty Start Date End Date Eric Maria MD [address] [place] [address] PCP - General 11/04/20 documented as of this encounter
--- OUTSIDE RECORDS SUMMARY | 2024-12-04 10:08 | XMS_ITS | Encounter Summary ---
Author Organization [employer] ([place], [place], [place], [place]) Address [address] [place] [address] Care Team Providers Care School Based Therapist Name Role Phone Unavailable Primary Care Provider Unavailabl e Encounter Details Date Type Department Care Team (Late st Contact Info) Description 01/09/[address] [facility] [place] [address] [place] [address] ProviderJose MD [address] [place], [place] [address] Social History Tobacco Use Types Packs/Day Years Used Date Smoking Tobacco: Never Assessed Sex and Gender Information Value Date Recorded Sex Assigned at Not on file Legal Sex Male 2:31 PM CDT Gender Identity Not on file Sexual Orientation Not on file documented as of this encounter Miscellaneous Notes * Cerner Conversion Note - Jose ProviderMD - 01/09/2019 4:39 PM IT INVESTMENT/PORTFOLIO MANAGER Pain Assessment Entered On: 01/09/2019 21:12 EST [...]
--- OUTSIDE RECORDS SUMMARY | 2024-12-04 10:08 | XMS_ITS | Encounter Summary ---
Author Organization [employer] ([place], [place], [place], [place]) Address [address] [place] [address] Care Team Providers Care Holistic Nutritionist Name Role Phone Unavailable Primary Care Provider Unavailabl e Encounter Details Date Type Department Care Team (Late st Contact Info) Description 01/10/2019 Transcribed Document [facility] [place] Family Medicine [address] [place] [address] ProviderJose MD [address] [place] [address] Social History Tobacco Use Types Packs/Day Years Used Date Smoking Tobacco: Never Assessed Sex and Gender Information Value Date Recorded Sex Assigned at Not on file Legal Sex Male 2:31 PM CDT Gender Identity Not on file Sexual Orientation Not on file documented as of this encounter Miscellaneous Notes * Cerner Conversion Note - Historical ProviderMD - 01/10/2019 5:00 AM CPA TAX Chart Check - Review Order Profile Entered [...]
--- OUTSIDE RECORDS SUMMARY | 2024-12-04 10:08 | XMS_ITS | Encounter Summary ---
Author Organization [employer] ([place], [place], [place], [place]) Address [address] [place] [address] Care Team Providers Care Histology Technician Name Role Phone Unavailable Primary Care Provider Unavailabl e Encounter Details Date Type Department Care Team (Late st Contact Info) Description 01/09/2019 Transcribed Document [facility] [place] [address] [place] [address] ProviderJose MD [address] [place], [place] [id number] Social History Tobacco Use Types Packs/Day Years Used Date Smoking Tobacco: Never Assessed Sex and Gender Information Value Date Recorded Sex Assigned at Not on file Legal Sex Male 2:31 PM CDT Gender Identity Not on file Sexual Orientation Not on file documented as of this encounter Miscellaneous Notes * Cerner Conversion Note - Historical ProviderMD - 01/09/2019 4:39 PM SOCIAL WORK SPECIALIST Education-Cardiac Topics Entered On: 01/09/2019 21:13 EST Performed On: 01/09/2019 16:39 EST by Jailene Calvillo RN Teaching/Learning Assessment Barriers To Learning : None evident Individuals Taught : Patient, Spouse Readiness to Learn : Uninterested Jailene Calvillo RN - 01/09/2019 21:13 EST Electronically signed by Az [facility] Conversion Inpatient Pharmacist Steve at 06/23/2022 11:59 AM CDT documented in this encounter Plan of Treatment Not on file documented as of this encounter Visit Diagnoses Not on filedocumented in this encounter
--- OUTSIDE RECORDS SUMMARY | 2024-12-04 10:08 | XMS_ITS | Encounter Summary ---
Author Organization [employer] ([place], [place], [place], [place]) Address [address] [place] [address] Care Team Providers Care Casino Supervisor Name Role Phone Unavailable Primary Care Provider Unavailabl e Encounter Details Date Type Department Care Team (Late st Contact Info) Description 01/10/2019 Transcribed Document [facility] [place] Family Medicine [address] [place] [address] ProviderJose MD [address] [place], [place] [id number] Social History Tobacco Use Types Packs/Day Years Used Date Smoking Tobacco: Never Assessed Sex and Gender Information Value Date Recorded Sex Assigned at Not on file Legal Sex Male 2:31 PM CDT Gender Identity Not on file Sexual Orientation Not on file documented as of this encounter Miscellaneous Notes * Cerner Conversion Note - Jose Stokes MD - 01/10/2019 9:38 PM TRAINING DEVELOPMENT DIRECTOR Rapid Response Team Documentation Entered On: 01/10/2019 [...] change in location/level of care Rapid Response Casino Supervisor #1 : Shital Martins, RN Shital Martins, RN - 01/10/2019 21:38 EST Electronically signed by Az, [facility] Conversion Splitter Operator Cerner at 06/23/2022 11:55 AM CDT documented in this encounter Plan of Treatment Not on file documented as of this encounter Visit Diagnoses Not on filedocumented in this encounter
[2024-12-04 10:28] LABS: Alanine Aminotransferase 15 U/L (12-78); Albumin Level 3.4 g/dl (3.5-5.0); Albumin/Globulin Ratio 1.4 (1.1-1.8); Alkaline Phosphatase 202 U/L (38-126); Anion Gap 11.2 mEq/L (5-15); Aspartate Amino Transferase 24 U/L (17-59); Bilirubin,Total 0.8 mg/dl (0.2-1.3); Blood Urea Nitrogen 4 mg/dl (9-20); Calcium 8.0 mg/dl (8.4-10.2); Carbon Dioxide 23 mmol/L (22.0-30.0); Chloride 107 mmol/L (98-107); Creatinine,Serum 1.00 mg/dl (0.66-1.25); Estimated Glomerular Filt Rate 73 ml/min (>60); GFR (African American) 88 ML/MIN (>60); Globulin 2.5 g/dL (1.3-3.2); Glucose 120 mg/dl (74-100); Potassium 4.2 mmoL/L (3.5-5.1); Sodium 137 mmol/L (136-145); Total Protein,Serum 5.9 g/dl (6.3-8.2)
--- NOTE | 2024-12-04 10:30 | NM_ITS ---
APPROVED REPORT Exam: Nuclear Stress Test Indication: cp..soa..fatigue Patient Location: Outpatient Stress Tech: Radha Anderson [place] Tech:Sindy OdomSALOMON RT(R)(N) Ht: 5 ft 9 in Wt: 139 lbs HR: 76 bpm BP: 127/68 mmHg BSA: 1.77 m2 TID: 1.07 BMI: 20.5 History: cp..soa..fatigue Procedure: Patient received 0.4 mg of intravenous Lexiscan, resting heart rate 76 bpm, resting blood pressure 127/68 mmHg, with Lexiscan maximum heart rate achieved was 83 bpm which is 85 % of the maximum predicted heart rate and blood pressure was 124/54 mmHg. With Lexiscan, patient denied any complaint of chest pain. The patient was not able to lay on his abdomen for prone images. Cardiac Stress and Resting SPECT Images: Cardiac Stress and Resting SPECT images were obtained using technetium 99m Myoview 32.9 mCi stress and 10.98 mCi at rest. The patient could not lie on his abdomen. Therefore, prone stress imaging could not be performed. This may affect the diagnostic interpretation of the study findings. Resting and stress imaging in supine positions demonstrate a large-sized, severe, predominantly fixed perfusion defect in the inferior LV wall, as well as the mid to distal anterior LV wall and the apical LV diaz. There is a small region of reversibility towards the basal inferior LV wall. Gated imaging demonstrates mild reduction in global LV systolic function. LVEF is calculated at 41%. Conclusion: Large-sized, severe, predominantly fixed perfusion defect in the inferior LV wall, as well as the mid to distal anterior LV wall and the apical LV diaz. There is a small region of reversibility towards the basal inferior LV wall. Findings are suggestive of partial reversible ischemia. Gated imaging demonstrates mild reduction in global LV systolic function. LVEF is calculated at 41%. Of note, the RV appears dilated. Correlation with new or recent TTE is suggested. Electronically signed by : Lelia Em MD 12/04/2024 17:16:01
[2024-12-04 11:00] VITALS: BP 127/68; PULSE 85; RESP 14
[2024-12-04] MEDS: ISOTOPE MYOVIEW (PER STUDY) 1 DOSE IV (12:53)
[2024-12-04] MEDS: SODIUM CHLORIDE 0.9% 10ML SYR (RAD ONLY) 10 ML IV ×2 (12:53)
== END 2024-12-04 23:59 | disposition home or self-care (01) ==
LOC: RAD 09:46 → INF 10:50
PROVIDERS: Internal Medicine Medical Oncology; PCP Family Medicine; Visit Provider Physician Assistant
DX: C61 Malignant neoplasm of prostate (principal); I25.10 Atherosclerotic heart disease of native coronary artery without angina pectoris
CPT/HCPCS: 36415; 78452; 80053; 93017; 93018; A9502; J2785

== ENCOUNTER 2025-02-25 07:47 | Outpatient (CLI) | payer MEDICARE, MEDICAID, SELFPAY ==
--- OUTSIDE RECORDS SUMMARY | 2025-02-25 07:50 | XMS_ITS | Encounter Summary ---
Author Organization [facility] Address [address] [place] [address] Care Team Providers Care Compliance Professional Name Role Phone Eric Maria MD Primary Care Provider Encounter Details Date Type Department Care Team (Late st Contact Info) Description 05/25/2024 Orders Only External Location [address] [place] [address] Provider, External Social History Tobacco Use Types [...] Care Team (Late st Contact Info) Description 02/28/2025 9:00 AM EST Office Visit [place] [facility] [address], [address] [place] [address] Chu Null MD [address] [place] [address] 09/11/2025 10:00 AM EDT Ancillary Procedure [facility] Medicine Specialties [address] [place] [address] documented as of this encounter Procedures Procedure [...] documented as of this encounter Care Teams Compliance Professional Relationship Specialty Start Date End Date Eric Maria MD [address] [place] [address] PCP - General 11/04/20 documented as of this encounter
--- OUTSIDE RECORDS SUMMARY | 2025-02-25 07:50 | XMS_ITS | Encounter Summary ---
Author Organization [facility] Address [address] [place] [address] Care Team Providers Care Cover Cutter Name Role Phone Eric Maria MD Primary Care Provider Encounter Details Date Type Department Care Team (Late st Contact Info) Description 05/25/2024 Orders Only External Location [address] [place] [address] Provider, External Social History Tobacco Use Types [...] Visit [place] [facility] [address], [address] [place] [address] Chu Null MD [address] [place] [address] 09/11/2025 10:00 AM EDT Ancillary Procedure [facility] Medicine Specialties [address], [address] [place] [address] documented as of this encounter [...] documented as of this encounter Care Teams Cover Cutter Relationship Specialty Start Date End Date Eric Maria MD [address] [place] [address] PCP - General 11/04/20 documented as of this encounter
--- OUTSIDE RECORDS SUMMARY | 2025-02-25 07:50 | XMS_ITS | Continuity of Care Document ---
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 -The potential side effects of medications were discussed. -Counseling was done on care goals and ways to prevent future hospitalizatio ns. -Further treatment per orders listed below. Not available 11/29/2024 10:53:48 Plan of Treatment Reminders Order Date Submit Date Provider Last Modified By Organization Details Last Modified Time Details Appointments None record ed. Lab None record ed. Referral None record ed. Procedures None record ed. Surgeries None record ed. Imaging None record ed. Medication Orders None record ed. Patient TargetsNo targets recorded. Patient Instructions Encounter Date Encounter Id Patient Instructions Last Modified By Organization Details Last Modified Time 11/29/2024 [id number] medical record request* Not available 12/06/2024 09:27:32 medical record request* - please send last d/c summary, labs, any imaging. Not available 12/06/2024 09:27:32 At this time sta y off the Lasix and metoprolol. Follow up with Cardiology. 12/11/24 Keep appointment at [facility] Monday. Consider referral to Nephrology for electrolyte abnormality as discussed. Follow up here as needed. He will be seeing Neurology 12/21/24. [email or web address] Not available 11/29/2024 12:15:17 Reason for Referral None Reported. Results Created Date Observation Date Name Description Value Unit Range Abnormal Flag Note LastModifiedBy Organization Detail LastModifiedTime 12/05/1912/04/2024 cardi ac stres s test No observ ation record ed. [address], [place], [address], 12/05/2024 10:12:10 12/05/1912/04/2024 cardi ac stres s test No observ ation record ed. [address], [place], [address], 12/05/2024 10:13:04 12/14/19 25 11/19/2024 CT, abdom en + pelvi s, w/ contr ast No observ ation record ed. [address] ([facility]) [address], [place], [address], 12/13/2024 13:03:11 01/15/20 XR, lumbo sacra l spine , 2 or 3 view No observ ation record ed. [facility] [address], [place], [address], 01/14/2025 11:19:14 Result Notes None recorded. Problems Name Problem SNOMED Code Status Onset Date Resolution Date Notes Provider Name and Address Organization Details Recorded Time History of glaucoma 812310238 Active Aleida Stone null, [place] - [facility] 17:52:11 History of liver disease 798139641 Active Aleida Stone [place] [facility] 17:52:11 Postoper ative retentio n of urine 160162393 Active Aleida Stone [place] [facility] 17:52:11 Subcapit al fracture of neck of femur 536649809 Active Aleida Stone [place] [facility] 17:52:11 Retentio n of urine 274852160 Active Aleida Stone null, [place] - [facility] 17:52:11 Closed fracture of hip 287548372 Active Aleida Stone null, [facility] 5 17:52:11 History of myocardi al infarcti on 640964016 Active Aleida Stone null, [facility] 5 17:52:11 Adenocar cinoma of prostate 211866071 Active Aleida Stone null, [facility] 5 17:52:11 History of circumci maureen 682894693 Active Aleida Stone null, [facility] 5 17:52:11 Hypokale jamila 05758958 Active Prema Vanessa null, [facility] 08:43:51 Parkinso n's disease 58664331 Active Aleida Stone null, [facility] 17:52:11 Arterios clerotic vascular disease 86049645 Active Aleida Stone null, [facility] 17:52:11 Erectile dysfunct ion 895462264 Active Aleida Stone null, [facility] 17:52:11 History of macular degenera tion [id number] 387474 Active Aleida Stone null, [facility] 5 09:24:08 Acute retentio n of urine 288169433 Active Aleida Stone null, [facility] 5 09:24:08 Urinary tract infectio us disease 67787705 Active Aleida Stone null, [facility] 5 09:24:08 Decline in function al status 99133149182 9106 Active Aleida Stone null, [facility] 5 17:13:21 Anemia 232577333 Active Prema Vanessa null, [facility] 08:43:51 Paroxysm al atrial fibrilla tion 329741216 Active Aleida Stone null, [facility] 17:13:21 Acute kidney injury 67226786 Active Aleida Stone null, [facility] 13:45:01 Acute posthemo rrhagic anemia 043035360 Active Aleida Stone null, [facility] 5 13:45:01 Shock 50459038 Active Aleida Stone null, [place] - [facility] 13:45:01 Dehydrat ion 47485737 Active Aleida Stone null, [facility] 13:45:01 Altered mental status 192470997 Active Aleida Stone null, [facility] 5 13:45:01 Low blood pressure 74430498 Active Prema Vanessa null, [facility] 08:43:51 Catheter -associa gypsy urinary tract infectio n 230902988 Active Aleida Stone null, [place] [facility] 5 13:45:01 Gastroin testinal hemorrha ge 07466520 Active Aleida Stone null, [facility] 13:45:01 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 78970705 Active Aleida Stone null, 5 13:45:01 Hyponatr emia 34908029 Active Aleida Stone null, [facility] 13:52:00 Communit y acquired pneumoni a 279378867 Active Aleida Stone [place] [facility] 17:40:48 History of urinary tract infectio n 23297296389 07 Active Prema Vanessa null, [facility] 5 08:43:51 History of depressi on 266099114 Active Prema Vanessa null, [facility] 5 08:43:51 History of anticoag ulant therapy 256664383 Active Prema Vanessa null, 5 08:43:51 Hypomagn esemia 004643081 Active Prema Vanessa null, [facility] 5 08:43:51 Abdomina l pain 46382226 Active Prema Vanessa null, [facility] 5 08:43:51 History of brain disorder 413003982 Active Prema Vanessa null, [facility] 5 08:43:51 History of Disorder 857747157 Active Prema Vanessa null, [facility] 5 08:43:51 Hyperten sive disorder 13223372 Active Prema Vanessa null, [facility] 5 08:43:51 History of procedur e 613857501 Active Prema [place] - [facility] 5 08:43:51 History of cataract extracti on 991833140 [place] Prema [place] [facility] 5 08:43:51 Phimosis 706327752 Active Prema [place] [facility] 5 08:43:51 Heart disease 66579939 Active Prema [place] [facility] 5 08:43:51 Pain of wrist region 37132034 Active Prema [place] [facility] 5 08:43:51 Acute hypokale jamila 89892813 Active Prema [place] [facility] 5 08:43:51 Disorder of brain 10126612 Active Prema [place] [facility] 5 08:43:51 Injury of head 86942759 Active Prema [place] [facility] 5 08:43:51 Asthenia 15762020 Active Aleida Stone [place] [facility] 5 14:56:12 Hypoglyc emia 634204374 Active Aleida [place] [facility] 5 16:32:05 Essentia l hyperten maureen 72508086 Active 2015 Miguel Resendiz APRN [address], [place], [address], [place] [facility] 6 10:48:59 Mixed hyperlip idemia 274698409 Active 2015 Miguel Resendiz APRN [address], [place], [address], [place] [facility] 6 10:52:21 Diabetes mellitus 27350355 Active 2015 Miguel Resendiz APRN [address], [place], [address], [place] [facility] 6 10:52:25 History of placemen t of stent for coronary artery disease 224333800 Active 2015 Miguel Resendiz APRN [address], [place], [address], [place] [facility] 6 10:52:27 Degenera tive disorder of macula 821795594 Active 2015 Radha Resendez [place] [facility] 6 14:40:51 Cataract 596228979 Active 2015 Radha Resendez [place] [facility] 6 14:40:57 Cardiac pacemake r in situ 980923251 Active 2015 Radha Resendez [place] [facility] 6 14:42:23 History of atrial fibrilla tion 455519057 Active 2016 Eric Maria MD [address], [place], [address], [place] [facility] 7 15:31:13 Uncontro lled type 2 diabetes mellitus 190637223 Active 2016 Eric Maria MD [address], [place], [address] [facility] 5 11:53:25 History of cerebrov ascular accident 102000136 Active 2016 Radha Resendez [place] [facility] 7 11:11:26 Left ventricu lar hypertro phy 07020111 Active 2016 Radha Resendez [place] [facility] 7 11:11:42 Hyperten sive heart disease 36589527 Completed 201611/25/2019 Eric Maria MD [address], [place], [address] [facility] 0 15:08:12 Prostate nodule 39934228961 9109 Active 2017 Eric Maria MD [address], [place], [address] [facility] 8 12:38:39 Aneurysm of thoracic aorta 674812912 Active 2018 3.5cm kassyendtari g Eric Maria MD [address], [place], [address] [facility] 9 14:25:38 Stented coronary artery 225718520 Active 2018 Eric Maria MD [address], [place], [address] [facility] 9 14:29:39 Lymphade nopathy 80286641 Active 2018 Eric Maria MD [address], [place], [address] [facility] 9 14:40:30 Multiple nodules of lung 660014355 Active 2018 Eric Maria MD [address], [place], [address] [facility] 9 14:40:32 History of non-ST segment elevatio n myocardi al infarcti on 814430835 Active 2018 Eric Maria MD [address], [place], [address] [facility] 9 14:40:39 Sarcoido sis 61055832 Active 2019 Eric Maria MD [address], [place], [address] [facility] 0 16:36:27 Age related macular degenera tion 793696113 Active 2019 Eric Maria MD [address], [place], [address] [facility] 0 15:07:11 Visual impairme nt 574191303 Active 2019 Eric Maria MD [address], [place], [address] [facility] 0 15:07:22 Hyperten sive heart disease 62848123 Active 2019 Eric Maria MD [address], [place], [address] [facility] 0 15:08:12 Prostate specific antigen outside referenc e range 913387962 Active 2019 Eric Maria MD [address], [place], [address] [facility] 0 15:38:47 Dyspnea on exertion 07518511 Active 2019 Eric Maria MD [address], [place], [address] [facility] 14:09:57 Atrial fibrilla tion 64077255 Active 2019 Eric Maria MD [address], [place], [address] [facility] 0 12:09:20 History of malignan t neoplasm of prostate 224908969 Active 2020 Eric Maria MD [address], [place], [address] [facility] 1 09:48:01 Type 2 diabetes mellitus 91385038 Active 2020 Eric Maria MD [address], [place], [address] [facility] 1 11:24:54 Acquired thromboc ytopenia 09014724 Active 2020 Eric aMria MD [address], [place], [address] [facility] 1 09:47:00 Hyperlip idemia 28275401 Active 2021 Eric Maria MD [address], [place], [address] [facility] 10:05:44 Carcinom a of prostate 696175284 Active 2021 Eric Maria MD [address], [place], [address] [facility] 14:43:33 Headache 39043690 Active 2021 Eric Maria MD [address], [place], [address] [facility] 2 14:43:45 Recurren t falls 042569546 Active 2021 Eric Maria MD [address], [place], [address] [facility] 14:43:48 Memory impairme nt 948016605 Active 2021 Eric Maria MD [address], [place], [address] [facility] 14:43:49 Pain of right knee joint 05881892503 4100 Active 2022 Ankita Crow, CHIEF UNDERWRITER [address], [place], [address] [facility] 3 12:18:01 Cobalami n deficien cy 317571284 Active 2022 Eric Maria MD [address], [place], [address] [facility] 3 11:56:24 Resting tremor 66724170 Active 2022 Eric Maria MD [address], [place], [address] [facility] 13:38:32 Depressi ve disorder 39171128 Active 2022 Eric Maria MD [address], [place], [address] [facility] 3 13:40:39 Primary insomnia 4679908 Active 2024 Maricarmen Joe , [employer]IEF UND[employer] [address], [place], [address] [facility] 5 11:23:59 Pancytop enia 268886598 Active 2024 Eric Maria MD [address], [place], [address] [facility] 5 11:49:54 Dyspnea 899849270 Active 2024 Eric Maria MD [address], [place], [address] [facility] 5 11:53:01 Bilatera l pleural effusion 611358176 Active 2024 Eric Maria MD [address], [place], [address] [facility] 5 11:53:53 Chronic heart failure co-occur rent with normal ejection fraction 77921297017 02 Active 2024 Eric Maria MD [address], [place], [address] [facility] 5 11:54:39 Erick bishop 026052289 Active 2024 Eric Maria MD [address], [place], [address] [facility] 11:41:23 Compress ion fracture of thoracic spine 765691839 Active 2024 Eric Maria MD [address], [place], [address], [place] [facility] 12:14:46 Acute low back pain 894182504 Active 2024 Maricarmen Diaz , [employer]IEF UND[employer] [address], [place], [address], [place] [facility] 11:00:59 Compress ion fracture of L2 36719034292 236524 Active 2024 Maricarmen Diaz , CHIEF UND[employer]WRITER [address], [place], [address], [facility] - [facility] 10:16:56 Notes:Some problems listed i n Documents: #[id number], #[id number], #[id number], #[id number], #[id number], #[id number], #[id number], #[id number], #[id number], #[id number] could not be added to this patient's chart. Please review these documents and add these problems to the patient's chart manually as needed. Problem Notes None recorded. Procedures Surgical History Date Name Laterality Status Provider Name and Address Organization Details Recorded Time 11/30/19 25 Medication Reconcilliation completed Prema Vanessa [place] - [facility] 11/29/2024 10:53:48 10/19/19 25 Medication Reconcilliation completed Prema Vanessa [place] [facility] 10/18/2024 08:42:36 10/03/19 25 Medication Reconcilliation completed Prema Vanessa [place] [facility] 10/02/2024 08:08:08 09/06/19 25 Medication Reconcilliation completed Prema Vanessa [place] [facility] 09/05/2024 10:40:29 08/09/19 25 Medication Reconcilliation completed Prema Vanessa [place] [facility] 08/08/2024 12:49:58 07/11/19 25 Medication Reconcilliation cancelled Prema Vanessa [place] [facility] 07/05/2024 16:53:58 05/27/19 25 operation on fracture completed Prema Vanessa [place] [facility] 08/08/2024 12:58:40 09/28/19 24 Medication Reconcilliation completed Renae Sheth RN [address], [place], [address], [place] - [facility] 09/28/2023 09:46:47 05/24/19 24 Medication Reconcilliation completed Prema Vanessa [place] [facility] 05/23/2023 13:37:21 12/03/19 23 Medication Reconcilliation completed Prema Vanessa [place] [facility] 12/02/2022 13:55:17 06/25/19 23 Medication Reconcilliation completed Prema [place]essa [place] [facility] 06/24/2022 08:47:21 01/08/20 20 Systolic B/P less than 130 mm Hg completed Prema Vanessa [place] [facility] 01/08/2020 11:45:17 01/08/20 20 Diastolic B/P less than 80 mm Hg completed Prema Vanessa [place] [facility] 01/08/2020 11:45:19 08/28/19 20 Systolic B/P less than 130 mm Hg completed Prema Vanessa [place] [facility] 08/28/2019 09:47:16 08/28/19 20 Diastolic B/P less than 80 mm Hg completed Prema Vanessa [place] [facility] 08/28/2019 09:47:21 01/15/20 19 Medication Reconcilliation completed Prema Vanessa [place] [facility] 01/14/2019 13:50:34 Pacemaker Placement completed Amand a [place] - [facility] 03/02/2016 14:42:48 Imaging Results None recorded. Procedure Notes None recorded. Medical Equipment None Reported. Allergies Allergen ID Allergen Name Allergen Category Reaction Reaction Severity Criticality Documentation Date Start Date Code Code System Note Provider Name and Address Organization Details Recorded Time 838109 No known allergy (situatio n) Not available Not available Not available Not available 11/20/2024 18824 6003 SNOMED Aleida Cordon null, [place] - [facility] 14:56:11 No known drug allergies Medications Name Sig Start Date Stop Date Status Note LastModified by Organization Details LastModified Time losartan 50 mg tablet take 1 tablet (50 mg) by oral route once daily for 30 days 03/02 completed Not Available Not Available Not Available amoxicill in 500 mg capsule TAKE ONE (1) CAPSULE BY MOUTH FOUR (4) TIMES A DAY 01/13 completed Not Available Not Available Not Available furosemid e 40 mg tablet TAKE ONE (1) TABLET EVERY DAY BY ORAL ROUTE. 11/29 completed Not Available Not Available Not Available latanopro st 0.005 % eye drops INSTILL ONE (1) DROP INTO EACH EYE ONCE DAILY AT BEDTIME active Not Available Not Available No t Available fluconazo le 100 mg tablet 09/15 completed Not Available Not Available Not Available atorvasta tin 40 mg tablet Take 40 mg by oral route. 08/08 completed Not Available Not Available Not Available methocarb wei 500 mg tablet take 1 tablet by oral route QID - for muscle soreness in neck 03/02 completed Not Available Not Available Not Available metformin 500 mg tablet Take 1 tablet twice a day by oral route. 08/28 completed Not Available Not Available Not Available bicalutam cecilia 50 mg tablet TAKE 1 TABLET BY MOUTH DAILY 10/18 completed current course is complete d. Not Available Not Available Not Available atorvasta tin 80 mg tablet TAKE ONE (1) TABLET EVERY DAY BY ORAL ROUTE AT BEDTIME. active Not Available Not Available No t Available carvedilo l 6.25 mg tablet TAKE ONE (1) TABLET TWICE A DAY BY ORAL ROUTE FOR 90 DAYS. 12/02 completed Not Available Not Available Not Available doxycycli ne hyclate 100 mg capsule Take 1 capsule twice a day by oral route for 7 days. 08/08 completed Not Available Not Available Not Available carvedilo l 12.5 mg tablet TAKE ONE (1) TABLET TWICE DAILY WITH FOOD 09/27 completed Not Available Not Available Not Available ketoconaz ole 2 % shampoo MASSAGE ON AFFECTED AREAS EVERY OTHER DAY WHEN FLARED. LEAVE ON FOR 3-5 MINUTES THEN RINSE OUT. 09/27 completed Not Available Not Available Not Available pravastat in 40 mg tablet TAKE ONE (1) TABLET BY MOUTH EVERY DAY 07/15 completed Not Available Not Available Not Available nystatin 100,000 unit/gram topical ointment APPLY TO THE AFFECTED AREA(S) BY TOPICAL ROUTE 4 TIMES PER DAY NEEDED 07/09 completed Not Available Not Available Not Available fluconazo le 150 mg tablet 03/01 completed Not Available Not Available Not Available metoprolo l succinate ER 50 mg tablet,ex tended release 24 hr TAKE ONE (1) TABLET TWICE A DAY BY ORAL ROUTE. 11/29 completed Not Available Not Available Not Available hydrocodo ne 5 mg-acetam inophen 325 mg tablet TAKE ONE (1) TABLET FOUR (4) TIMES A DAY BY ORAL ROUTE NEEDED FOR 10 DAYS. active Not Available Not Available No t Available fluticaso ne propionat e 0.05 % topical cream APPLY TO AFFECTED AREAS TWICE DAILY FOR UP TO 14 DAYS. STOP FOR 7 DAYS. REPEAT NEEDED WHEN FLARED. 09/27 completed Not Available Not Available Not Available sucralfat e 100 mg/mL oral suspensio n TAKE 10 ML FOUR (4) TIMES A DAY BY ORAL ROUTE BEFORE MEAL(S). active Not Available Not Available No t Available glipizide 10 mg tablet TAKE 1 TABLET BY MOUTH TWICE A DAY BEFORE MEALS 12/02 completed Not Available Not Available Not Available alclometa sone 0.05 % topical cream 03/02 completed Not Available Not Available Not Available cyanocoba jl (vit B-12) 1,000 mcg tablet TAKE ONE (1) TABLET BY MOUTH EVERY DAY 2024 active Not Available Not Available Not Avai lable melatonin 3 mg tablet TAKE ONE (1) TABLET BY MOUTH EVERY DAY BY ORAL ROUTE AT BEDTIME. 2024 active Not Available Not Available Not Avai lable clopidogr el 75 mg tablet TAKE ONE (1) TABLET ONCE DAILY. 10/18 completed Not Available Not Available Not Available sulfameth oxazole 800 mg-trimet hoprim 160 mg tablet 06/09 completed Not Available Not Available Not Available aspirin 81 mg tablet,de layed release TAKE 1 TABLET ONCE DAILY. 08/08 completed Not Available Not Available Not Available acetamino phen 500 mg tablet Take 2 tablets 3 times a week by oral route. 2024 active OTC per [facility] 09/30/24 Not Available Not Available Not Available spironola ctone 25 mg tablet TAKE ONE (1) TABLET EVERY DAY BY ORAL ROUTE. active Not Available Not Available No t Available carvedilo l 3.125 mg tablet 01/14 completed Not Available Not Available Not Available Cholestyr amine Light 4 gram powder for suspensio n in a packet MIX ONE (1) PACKET DIRECTED ON BOX AND DRINK TWICE DAILY BEFORE MEALS 08/08 completed Not Available Not Available Not Available ketorolac 0.5 % eye drops 04/06 completed Not Available Not Available Not Available oxycodone -acetamin ophen 5 mg-325 mg tablet 01/14 completed Not Available Not Available Not Available potassium chloride ER 20 mEq tablet,ex tended release(p art/cryst ) TAKE 1 TABLET TWICE A DAY. active Not Available Not Available No t Available pravastat in 80 mg tablet TAKE ONE (1) TABLET EVERY DAY BY ORAL ROUTE. 08/28 completed Not Available Not Available Not Available aspirin 325 mg tablet,de layed release take 1 tablet (325 mg) by oral route once daily for 30 days 07/13 completed aspirin 325 mg oral tablet,d elayed release (DR/EC); Recorded Status: Recorded on: 01/15/20 14 11:01AM; User: [email or web address] Manuel Completfariba on: 07/14/19 15;Print ed: 01/15/20 14 Not Available Not Available Not Available calcitoni n (salmon) 200 unit/actu ation nasal spray TAKE ONE (1) SPRAY EVERY DAY BY NASAL ROUTE, FOR CHRONIC COMPRESS ION FRACTURE . active Not Available Not Available No t Available cephalexi n 500 mg capsule TAKE 1 CAPSULE TWICE DAILY FOR 7 DAYS 01/13 completed Not Available Not Available Not Available pantopraz ole 40 mg tablet,de layed release TAKE ONE (1) TABLET BY MOUTH TWICE DAILY DIRECTED active Not Available Not Available No t Available Cipro 500 mg tablet take 1 tablet (500 mg) by oral route 2 times per day for 10 days 03/15 completed Cipro 500 mg oral tablet;R ecorded Status: Recorded on: 12/18/19 11 3:35PM;D iscontin ued Status: Disconti nued on: 03/15/19 12 9:01AM;U ser: [email or web address];Es t. Completi on: 12/28/19 11;Print ed: 12/18/19 11 Not Available Not Available Not Available losartan 25 mg tablet take 1 tablet by oral route daily for 30 days 04/02 completed losartan 25 mg oral tablet;R ecorded Status: Recorded on: 11/28/19 12 9:54AM;D iscontin ued Status: Disconti nued on: 04/02/19 14 9:39AM;U ser: [email or web address];Est. Completi on: 05/27/19 13;Print ed: 11/28/19 12 Not Available Not Available Not Available nitroglyc makeda 0.4 mg sublingua l tablet DISSOLVE 1 TABLET UNDER TONGUE EVERY 5 MINUTES FOR 3 DOSES NEEDED FOR CHEST PAIN-NO RELIEF CALL 911 active Not Available Not Available No t Available Valtrex 1 gram tablet take 1 tablet (1,000 mg) by oral route 3 times per day for 7 days 02/12 completed Valtrex 1 gram oral tablet;R ecorded Status: Recorded on: 01/11/20 12 10:47AM; Disconti nued Status: Disconti nued on: 02/13/20 12 3:47PM;U ser: [email or web address] b;Est. Completi on: 01/18/20 12;Indic ation: Herpes Zoster - ();Prin gypsy: 01/11/20 12 Not Available Not Available Not Available triamtere ne 37.5 mg-hydroc hlorothia zide 25 mg tablet 1 po qd 03/01 completed Not Available Not Available Not Available omeprazol e 20 mg capsule,d elayed release 1 po qd 01/14 completed Not Available Not Available Not Available pseudoeph edrine 30 mg tablet take 1-2 tablets by oral route every 6 hours as needed 03/02 completed pseudoep hedrine HCl 30 mg oral tablet;R ecorded Status: Recorded on: 03/18/19 16 10:52AM; User: [email or web address] lowe;Sallye d: 03/18/19 16 Not Available Not Available Not Available bisacodyl 5 mg tablet,de layed release Take 5 mg by oral route. 08/08 completed Not Available Not Available Not Available aspirin 81 mg tablet Take 1 tablet every day by oral route. 08/28 completed Not Available Not Available Not Available pravastat in 20 mg tablet Take 1 tablet by oral route once daily 04/13 completed Not Available Not Available Not Available lisinopri l 5 mg tablet take 1 tablet (5 mg) by oral route once daily for 30 days 12/17 completed lisinopr il 5 mg oral tablet;c omment: possibly gave pt a cough;Re corded Status: Recorded on: 10/30/19 11 9:36AM;D iscontin ued Status: Disconti nued on: 12/18/19 11 3:35PM;U ser: gored;Es t. Completi on: 04/27/19 12;Print ed: 10/30/19 11 Not Available Not Available Not Available furosemid e 20 mg tablet TAKE 1 TABLET ONCE DAILY. FOR FLUID 01/03 completed Not Available Not Available Not Available mirtazapi ne 15 mg tablet TAKE ONE HALF (1/2) TABLET BY MOUTH AT BEDTIME active Not Available Not Available No t Available Novolog U-100 Insulin aspart 100 unit/mL subcutane ous solution inject by subcutan eous route as per insulin sliding scale protocol (12 units aAC) 12/29 completed Not Available Not Available Not Available Tylenol-C odeine #3 300 mg-30 mg tablet take 2 tablets by oral route every 6 hours as needed for cough 04/02 completed Tylenol- Codeine #3 300-30 mg oral tablet;R ecorded Status: Recorded on: 02/13/20 12 4:08PM;D iscontin ued Status: Disconti nued on: 04/02/19 14 9:33AM;U ser: [email or web address];Printe d: 02/13/20 12 Not Available Not Available Not Available cefuroxim e axetil 500 mg tablet 09/15 completed Not Available Not Available Not Available levofloxa juju 500 mg tablet 01/14 completed Not Available Not Available Not Available albuterol sulfate HFA 90 mcg/actua tion aerosol inhaler Inhale 1 puff twice a day by inhalati on route as needed. active Not Available Not Available No t Available carbidopa 25 mg-levodo pa 100 mg tablet TAKE ONE (1) TABLET BY MOUTH THREE (3) TIMES DAILY active Not Available Not Available No t Available ketoconaz ole 2 % topical cream APPLY TO THE AFFECTED AREA(S) BY TOPICAL ROUTE ONCE DAILY 09/30 completed Not Available Not Available Not Available lisinopri l 40 mg tablet Take 40 mg by oral route. 08/08 completed Not Available Not Available Not Available cefdinir 300 mg capsule TAKE ONE CAPSULE BY MOUTH TWICE DAILY FOR ONE DAY take ON 10/10/2410/18 completed Not Available Not Available Not Available fluticaso ne propionat e 50 mcg/actua tion nasal spray,briana pension [place] 2 sprays every day by intranas al route in the morning. 09/30 completed Not Available Not Available Not Available metformin ER 500 mg tablet,ex tended release 24 hr TAKE TWO (2) TABLETS BY MOUTH TWICE A DAY 08/08 completed Not Available Not Available Not Available ramipril 5 mg capsule TAKE 1 CAPSULE BY MOUTH EVERY DAY 04/06 completed Not Available Not Available Not Available ramipril 10 mg capsule TAKE ONE (1) CAPSULE ONCE DAILY 08/28 completed Not Available Not Available Not Available amoxicill in 875 mg-potass ium clavulana te 125 mg tablet Take 1 tablet every 12 hours by oral route for 10 days. 09/04 completed Not Available Not Available Not Available Tessalon Perle 100 mg capsule take 1-2 capsules by oral route TID PRN for cough 04/02 completed Replaced /Retired Drug 100 mg oral capsule; Recorded Status: Recorded on: 02/13/20 12 4:08PM;D iscontin ued Status: Disconti nued on: 04/02/19 14 9:33AM;U ser: [email or web address];Printe d: 02/13/20 12 Not Available Not Available Not Available enoxapari n 80 mg/0.8 mL subcutane ous syringe 01/21 completed Not Available Not Available Not Available escitalop azucena 10 mg tablet TAKE 1 TABLET ONCE DAILY. 02/09 completed Not Available Not Available Not Available escitalop azucena 20 mg tablet TAKE ONE (1) TABLET EVERY DAY BY ORAL ROUTE. 09/27 completed stopped by patient Not Available Not Available Not Available valsartan 40 mg tablet 1 tablet po qd 01/07 completed Not Available Not Available Not Available Crestor 10 mg tablet take 1 tablet (10 mg) by oral route once daily for 30 days 11/27 completed Crestor 10 mg oral tablet;R ecorded Status: Recorded on: 10/30/19 11 9:36AM;D iscontin ued Status: Disconti nued on: 11/28/19 12 9:16AM;U ser: gored;Es t. Completi on: 04/27/19 12;Print ed: 10/30/19 11 Not Available Not Available Not Available Levitra 20 mg tablet TAKE ONE (1) TABLET EVERY DAY BY ORAL ROUTE NEEDED. 08/08 completed Not Available Not Available Not Available escitalop azucena 5 mg tablet TAKE ONE (1) TABLET EVERY DAY BY ORAL ROUTE IN THE EVENING. 03/13 completed Not Available Not Available Not Available metoprolo l tartrate 25 mg tablet TAKE ONE (1) TABLET BY MOUTH TWICE DAILY 10/18 completed Not Available Not Available Not Available metformin ER 1,000 mg tablet,ex tended release 24hr (osmotic) take 1 tablet by oral route 2 times a day 08/24 completed metformi n 1,000 mg oral tablet extended release 24hr;Rec orded Status: Recorded on: 07/20/19 16 3:46PM;U ser: [email or web address];Est. Completi on: 01/16/20 16;Print ed: 07/20/19 16 Not Available Not Available Not Available BD Ultra-Fin e Mini Pen Needle 31 gauge x 3/16 DIRECTED 09/30 completed Not Available Not Available Not Available metformin ER 1,000 mg tablet,ex tended release 24 hr Take 1 tablet twice a day by oral route for 90 days. 01/20 completed Not Available Not Available Not Available Antifunga l (clotrima zole) 1 % topical cream APPLY TO THE AFFECTED AND SURROUND ING AREAS OF SKIN BY TOPICAL ROUTE 2 TIMES PER DAY IN THE MORNING AND EVENING 09/15 completed Not Available Not Available Not Available carvedilo l 02/07 completed carvedil ol oral;Rec orded Status: Recorded on: 03/18/19 16 10:31AM; User: [email or web address] Not Available Not Available Not Available Glipizide XL 2 po bid 01/14 completed glipizid e ER 10 mg;comme nt: Dosage change to 1 tablet BID;Roland rded Status: Recorded on: 11/28/19 12 9:54AM;D iscontin ued Status: Disconti nued on: 01/15/20 14 10:13AM; User: [email or web address] b;Est. Completi on: 05/27/19 13;Indic ation: None Selected - (-5);Bonny nted: 11/28/19 12 Not Available Not Available Not Available Contour Test Strips use as directed 09/30 completed Not Available Not Available Not Available Levemir U-100 Insulin 100 unit/mL subcutane ous solution inject 35 units by subcutan eous route once daily at bedtime 01/21 completed Levemir 100 unit/mL subcutan eous solution ;Recorde d Status: Recorded on: 07/20/19 16 3:46PM;U ser: [email or web address] b;Printe d: 07/20/19 16 Not Available Not Available Not Available BD Ultra-Fin e Short Pen Needle 31 gauge x 5/16 DIRECTED active Not Available Not Available No t Available Insulin Syringe 1 mL 29 gauge x 1/2 use as directed 08/22 completed Insulin Syringe 1 mL 29 gauge x 1/2 miscella neous syringe; Recorded Status: Recorded on: 07/20/19 16 3:46PM;U ser: [email or web address] b;Printe d: 07/20/19 16 Not Available Not Available Not Available metformin ER 500 mg 24 hr tablet,ex tended release (gastric retention ) 2 po bid 03/20 completed Not Available Not Available Not Available UltiCare 0.3 mL 31 gauge x 5/16 syringe use as directed with insulin twice daily 08/08 completed Not Available Not Available Not Available budesonid e-formote rol HFA 160 mcg-4.5 mcg/actua tion aerosol inhaler INHALE TWO (2) PUFFS TWICE A DAY BY INHALATI ON ROUTE. active Not Available Not Available No t Available peg 3350-elec trolytes 236 gram-22.7 4 gram-6.74 gram-5.86 gram solution TAKE DIRECTED 08/08 completed Not Available Not Available Not Available Lantus Solostar U-100 Insulin 100 unit/mL (3 mL) subcutane ous pen INJECT 25 UNITS EVERY DAY BY SUBCUTAN EOUS ROUTE. active Not Available Not Available No t Available diclofena c 1 % topical gel APPLY TWO (2) GRAMS TO THE AFFECTED AREA(S) BY TOPICAL ROUTE TWO (2) TIMES PER DAY 09/27 completed Not Available Not Available Not Available Onglyza 5 mg tablet take 1 tablet (5 mg) by oral route once daily for 30 days 11/27 completed Onglyza 5 mg oral tablet;R ecorded Status: Recorded on: 10/30/19 11 9:36AM;D iscontin ued Status: Disconti nued on: 11/28/19 12 9:16AM;U ser: gored;Es t. Completi on: 04/27/19 12;Print ed: 10/30/19 11 Not Available Not Available Not Available Senexon-S 8.6 mg-50 mg tablet Take 2 tablets every day by oral route. 09/30 completed Not Available Not Available Not Available Victoza 0.6 mg/0.1 mL (18 mg/3 mL) subcutane ous pen injector inject 0.2 millilit er (1.2 mg) by subcutan eous route once daily for 30 days 01/14 completed Replaced /Retired Drug 0.6 mg/0.1 mL (18 mg/3 mL) subcutan eous pen injector ;Recorde d Status: Recorded on: 11/28/19 12 9:54AM;D iscontin ued Status: Disconti nued on: 01/15/20 14 10:14AM; User: [email or web address] b;Est. Completi on: 05/27/19 13;Print ed: 11/28/19 12 Not Available Not Available Not Available HealthyLa x 17 gram oral powder packet Take 1 pkt by oral route. 08/08 completed Not Available Not Available Not Available ICaps AREDS 4,296 mcg-226 mg-90 mg capsule Take 1 capsule every day by oral route. 08/08 completed Not Available Not Available Not Available Brilinta 90 mg tablet 03/01 completed Not Available Not Available Not Available Xarelto 20 mg tablet TAKE ONE (1) TABLET BY MOUTH EVERY DAY 10/18 completed Not Available Not Available Not Available TRUEplus Insulin 0.5 mL 29 gauge x 1/2 syringe use as directed with insulin once daily SQ 08/08 completed Not Available Not Available Not Available Eliquis 5 mg tablet TAKE ONE (1) TABLET TWICE A DAY BY ORAL ROUTE. active Not Available Not Available No t Available Farxiga 10 mg tablet TAKE ONE (1) TABLET EVERY DAY BY ORAL ROUTE. active Not Available Not Available No t Available potassium chloride ER 20 mEq tablet,ex tended release Take 1 tablet every day by oral route for 7 days. 10/16 completed Not Available Not Available Not Available Jardiance 10 mg tablet TAKE ONE (1) TABLET(S ) EVERY DAY BY ORAL ROUTE 02/18 completed Not Available Not Available Not Available Jardiance 25 mg tablet Take 1 tablet every day by oral route. 08/28 completed Not Available Not Available Not Available dextrose 15 gram/33 gram oral gel packet Take 15 g by oral route. 08/08 completed Not Available Not Available Not Available Lidocaine Pain Relief 4 % topical patch APPLY ONE (1) PATCH EVERY DAY BY TOPICAL ROUTE, FOR LOWER BACK PAIN. ON FOR 12 HOURS AND OFF FOR 12 HOURS. active Not Available Not Available No t Available Vitals Date Recorded Heart rate Provider Name an d Address Organization Details Last Updated DateTime 11/29/2024 79 /min Eric Maria MD [address], [place], [address], [place] - [facility] 11/29/2024 12:11:55 Date Recorded Body height Body mass index (BMI) Body weight Body temperature Respiratory rate Oxygen saturation Pain severity - 0-10 verbal numeric rating [Score] - Reported Systolic And Diastolic Provider Name and Address Organization Details Last Updated DateTime 172.72 cm 21.1 kg/m2 03525.5 5 g 98.2 [degF] 17 /min 99 % 0 114/60 mm[Hg] Prema Vanessa [place] - [facility] 10:58:36 Social History Question Answer Notes LastModified by Organizat ion Details LastModified Time Tobacco Smoking Status Never Smoker Prema ott, [place] - [facility] 04/13/2017 09:21:57 Able To Swim? Yes Information not available 08/24/2016 Do You Have An Advance Directive? No [email or web address] Information not available 08/24/2016 Do You Wear A Helmet When Biking? Yes [email or web address] Information not available 08/24/2016 Are You Blind Or Do You Have Difficulty Seeing? Yes Information not available 03/20/2017 What Is Your Level Of Caffeine Consumption? Moderate [email or web address] Information not available 08/24/2016 How Much Tobacco Do You Chew? 1/day [email or web address] Information not available 08/24/2016 Are You Deaf Or Do You Have Serious Difficulty Hearing? No Information not available 03/20/2017 What Type Of Diet Are You Following? [email or web address] Information not available 08/24/2016 Which Illicit Or Recreational Drugs Have You Used? Denies [email or web address] Information not available 08/24/2016 What Is The Highest Grade Or Level Of School You Have Completed Or The Highest Degree You Have Received? [id number] Information not available 05/29/2017 How Many Days Of Moderate To Strenuous Exercise, Like A Brisk Walk, Did You Do In The Last 7 Days? 0 Information not available 05/29/2017 On Those Days That You Engage In Moderate To Strenuous Exercise, How Many Minutes, On Average, Do You Exercise? 0 Information not available 05/29/2017 Swimming/diving Yes [email or web address] Informati on not available 08/24/2016 How Hard Is It For You To Pay For The Very Basics Like Food, Housing, Medical Care, And Heating? Not Very Hard Information not available 03/13/2023 Hard Of Hearing Or Deaf In One Or Both Ears? No [email or web address] Information not available 08/24/2016 Legally Blind In One Or Both Eyes? No Information no t available 08/24/2016 Live Alone Or With Others? With Others [email or web address] Information not available 08/24/2016 What Was The Date Of Your Most Recent Tobacco Screening? 01/13/2025 Information not available 01/13/2025 Do You Use Protection During Sex? Always [email or web address] Information not available 08/24/2016 What Is Your Relationship Status? Information not available 08/24/2016 Seat Belts Used Routinely Yes [email or web address] Information not available 08/24/2016 Are You Sexually Active? Yes [email or web address] Information not available 08/24/2016 Smoke Alarm In Home Yes Information not available 08/24/2016 Are You Passively Exposed To Smoke? No [email or web address] Information no t available 08/24/2016 How Much Tobacco Do You Smoke? No Information not available 06/10/2019 General Stress Level Low [email or web address] Information not available 08/24/2016 Do You Use Sunscreen Routinely? Yes Information not available 08/24/2016 Has Tobacco Cessation Counseling Been Provided? No Information not available 01/13/2025 On What Date Was Tobacco Cessation Counseling Provided? 09/05/2024 Information not available 09/05/2024 Do You Have Difficulty Walking Or Climbing Stairs? Yes Information not available 03/20/2017 Sex: Male Functional Status Question Answer Note LastModified by Organizat ion Details LastModified Time What is your level of alcohol consumption? None [email or web address] Information not available 08/24/2016 Do you or have you ever used smokeless tobacco? Currently chews tobacco 1 PPD Information not available 01/08/2020 Are you currently employed? Yes [email or web address] Information not available 08/24/2016 Are you able to walk independently without assistance or assistive devices? YESWOREST [email or web address] Information not available 08/24/2016 Do you have difficulty doing errands alone? No Information not available 03/20/2017 Are you able to care for yourself independently? Yes [email or web address] Information not available 08/24/2016 Do you have difficulty dressing, bathing, grooming, or toileting? No Information not available 03/20/2017 Do you or have you ever used e-cigarettes or vape? Never used electronic cigarettes Information not available 06/10/2019 What is your exercise level? Occasional [email or web address] Information not available 08/24/2016 Mental Status Question Answer Note LastModified by Organizat ion Details LastModified Time Do you feel stressed (tense, restless, nervous, or anxious, or unable to sleep at night)? [id number] Information not available 05/29/2017 Do you have difficulty concentrating, remembering or making decisions? No Information no t available 03/20/2017 Family History Relationship Description Onset Age of this Age Resolved Age Notes LastModified by Organization Details LastModified Time Mother Heart murmur [email or web address] Not avail able 01/09/2017 13:55:08 Mother Disorder of macula of retina [email or web address] Not available 2016 13:55:44 Medical History Condition Response Diabetes Y Myocardial Infarction Y Hyperlipidemia Y Immunizations Vaccine Type Date Status Note Provider Name and Address Organization Details Recorded Time pneumococcal polysaccharide PPV23 020 cancelled patient objection Eric Maria MD [address], [place], [address], [place] [facility] 11/25/2019 15:09:36 Tdap 020 cancelled patient objection Eric Maria MD [address], [place], [address], [place] [facility] 11/25/2019 15:09:36 Influenza, split virus, quadrivalent, preservative cancelled patient objection Eric Maria MD [address], [place], [address], [place] [facility] 01/08/2020 12:10:22 pneumococcal polysaccharide PPV23 021 cancelled patient objection Eric Maria MD [address], [place], [address], [place] [facility] 10/14/2020 10:07:15 Tdap 021 cancelled patient objection Eric Maria MD [address], [place], [address], [place] [facility] 10/14/2020 10:07:15 Pneumococcal conjugate PCV 13 cancelled patient objection Eric Maria MD [address], [place], [address], [place] [facility] 02/18/2021 22:29:20 Tdap 021 cancelled patient objection Eric Maria MD [address], [place], [address], [place] [facility] 02/18/2021 22:29:20 Influenza, high-dose, quadrivalent, PF cancelled patient objection Eric Maria MD [address], [place], [address], [place] [facility] 02/18/2021 22:29:20 pneumococcal polysaccharide PPV23 cancelled patient objection Eric Maria MD [address], [place], [address], [place] [facility] 08/09/2021 00:50:08 Tdap 022 cancelled patient objection Eric Maria MD [address], [place], [address], [place] [facility] 02/10/2022 14:40:51 Influenza, high-dose, quadrivalent, PF cancelled patient objection Eric Maria MD [address], [place], [address], [place] [facility] 02/10/2022 14:40:51 Pneumococcal conjugate PCV20, polysaccharide [id number] conjugate, adjuvant, PF cancelled patient objection Eric Maria MD [address], [place], [address], [place] [facility] 02/10/2022 14:40:51 zoster recombinant cancelled patient objection Eric Maria MD [address], [place], [address], [place] [facility] 02/10/2022 14:40:51 Influenza, split virus, quadrivalent, preservative 018 cancelled patient objection Not Available [facility] 03/23/2019 03:54:49 Pneumococcal conjugate PCV 13 018 cancelled patient objection Not Available [facility] 03/23/2019 03:54:49 Tdap 018 cancelled patient objection Not Available [facility] 03/23/2019 03:54:53 Pneumococcal conjugate PCV 13 018 cancelled patient objection Not Available [facility] 03/23/2019 03:54:54 Tdap 018 cancelled patient objection Not Available [facility] 03/23/2019 03:54:55 Influenza, split virus, quadrivalent, preservative 018 cancelled patient objection Not Available [facility] 03/23/2019 03:54:54 Influenza, high-dose, quadrivalent, PF 023 cancelled patient objection Eric Maria MD [address], [place], [address], [place] [facility] 12/29/2022 23:00:07 Influenza, high-dose, quadrivalent, PF 024 cancelled patient objection Eric Maria MD [address], [place], [address], [place] [facility] 04/09/2023 21:09:03 Pneumococcal conjugate PCV20, polysaccharide [id number] conjugate, adjuvant, PF 024 cancelled patient objection Eric Maria MD [address], [place], [address], [place] [facility] 04/09/2023 21:09:03 zoster recombinant 024 cancelled patient objection Eric Maria MD [address], [place], [address], [place] [facility] 04/09/2023 21:09:03 Influenza, high-dose, trivalent, PF 024 cancelled patient objection Eric Maria MD [address], [place], [address], [place] [facility] 01/05/2024 10:43:43 Pneumococcal conjugate PCV20, polysaccharide [id number] conjugate, adjuvant, PF 024 cancelled patient objection Eric Maria MD [address], [place], [address], [place] [facility] 01/05/2024 10:43:43 zoster recombinant 024 cancelled patient objection Eric Maria MD [address], [place], [address], [place] [facility] 01/05/2024 10:43:43 Past Encounters Encounter ID Performer Location Encounter Start Date Encounter Closed Date Diagnosis/Indication Diagnosis SNOMED-CT Code Diagnosis ICD10 Code Diagnosis IMO Codes Diagnosis Note [id number] Eric Kellogg [facility] [address] [place] [address] 11/29/2024 10:42:25 11/29/2024 12:17:18 Medical records review 803375963 Z76.89 [id number] Hypokalemia 02629238 E87 .6 9791 Hyponatremia 34765514 E8 7.1 96973 Anemia 371170629 D64.9 09722719 Thrombocyt openic disorder 742663402 D69.6 13131 Confusional state 000364 003 R41.0 13775 Health Concerns Section Related Observation LastModified by Organization Detai ls LastModified Time None Recorded Concern Status LastModified by Organization Details LastModified Time None Recorded Payers Encounter Date Sequence Insurance Name Policy Number Policy Aldrich Covered Member ID Aldrich Member ID Guarantor Name 11/29/2024 2 MEDICAID-[facility] CHOICES - FFS/TRADITIONA L Gerry Pollock [id number] Gerry Pollock 11/29/2024 1 [employer]-[place]: DEYA LOWE OF [facility] MEDIBLUE PLUS (MEDICARE REPLACEMENT HMO) [id number] Gerry Pollock [id number] Gerry Pollock Notes Date Note Type Note Provider Name and Address Organization Details Recorded Time 11/29/2024 text/html Emergency Depart ment Follow-Up RecordReported by PatientEmergency Room Follow-Up RecordFor discharge information, patient reportsname of hospital/urgent care patient was seen: ([facility]),patient presented to hospital/urgent care on or around: actual date 11/22/24,patient presented to hospital for treatment of: (weakness, delusional/confusion, hypokalemia),treatment received by hospital/urgent care: (hypokalemia, gave iv potassium.d/c furosemide and metoprolol. ([facility])yesterday at oncology potassium was 2.9),patient's condition has: unchanged, andhospital records available at the time of this visit: no.Currently oriented to place. notes that earlier he thought that she was taking him to work. Seen Hematology/oncology yesterday.Reviewed and discussed labs from yesterday.Mg 1.8Na 132 (mild hyponatremia)eGFR 100Gluc 132Fe 57Alb 3.3PSA 3.17Hgb 10.7 (anemia)Plt 115k (thrombocytopenia) Yesterday had two bags of IV potassium. (also had Zometa and Lupron)He is going to be seen at [facility] on Monday (and will have blood tests then). At this time not taking Lasix or metoprolol. AnemiaThrombocytopenia . Eric Maria MD [address], [place], [address], [place] [facility] 11/29/2024 16:32:07
--- OUTSIDE RECORDS SUMMARY | 2025-02-25 07:50 | XMS_ITS | Encounter Summary ---
Author Organization [facility] Address [address] [place] [address] Care Team Providers Care Magazine Editor Name Role Phone Eric Maria MD Primary Care Provider Encounter Details Date Type Department Care Team (Late st Contact Info) Description 05/27/2024 Orders Only External Location [address] [place] [address] Provider, External Social History Tobacco Use Types [...] Visit [place] [facility] [address], [address] [place] [address] Chu Null MD [address] [place] [address] 09/11/2025 10:00 AM EDT Ancillary Procedure [facility] [address], [address] [place] [address] documented as of this encounter [...] documented as of this encounter Care Teams Magazine Editor Relationship Specialty Start Date End Date Eric Maria MD [address] [place] [id number] PCP - General 11/04/20 documented as of this encounter
--- OUTSIDE RECORDS SUMMARY | 2025-02-25 07:50 | XMS_ITS | Encounter Summary ---
Author Organization [facility] Address [address] [place] [address] Care Team Providers Care Transformer Coil Winder Name Role Phone Eric Maria MD Primary Care Provider Encounter Details Date Type Department Care Team (Late st Contact Info) Description 05/26/2024 Orders Only External Location [address] [place] [address] Provider, External Social History Tobacco Use Types [...] Visit [place] [facility] [address], [address] [place] [address] Chu Null MD [address] [place] [address] 09/11/2025 10:00 AM EDT Ancillary Procedure [facility] [address], [address] [place] [address] documented as of this encounter [...] documented as of this encounter Care Teams Transformer Coil Winder Relationship Specialty Start Date End Date Eric Maria MD [address] [place] [address] PCP - General 11/04/20 documented as of this encounter
--- OUTSIDE RECORDS SUMMARY | 2025-02-25 07:50 | XMS_ITS | Encounter Summary ---
Author Organization [facility] Address [address] [place] [address] Care Team Providers Care Clamp Jig Assembler Name Role Phone Eric Maria MD Primary Care Provider Encounter Details Date Type Department Care Team (Late st Contact Info) Description 05/31/2024 Orders Only External Location [address] [place] [address] Provider, External Social History Tobacco Use Types [...] Visit [place] [facility] [address], [address] [place] [address] Chu Null MD [address] [place] [address] 09/11/2025 10:00 AM EDT Ancillary Procedure [facility] Medicine Specialties [address], [address] [place] [address] documented as of this encounter [...] documented as of this encounter Care Teams Clamp Jig Assembler Relationship Specialty Start Date End Date Eric Maria MD [address] [place] [address] PCP - General 11/04/20 documented as of this encounter
--- OUTSIDE RECORDS SUMMARY | 2025-02-25 07:51 | XMS_ITS | Encounter Summary ---
Author Organization [employer] ([place], [place], [place], [place], [place]) Address [address] [place] [address] Care Team Providers Care Critical Power Install Technician Name Role Phone Unavailable Primary Care Provider Unavailabl e Encounter Details Date Type Department Care Team (Late st Contact Info) Description 01/09/2019 Transcribed Document [facility] [place] [facility] [place] [address] ProviderJose MD [address], [place] [id number] Social History Tobacco Use Types Packs/Day Years Used Date Smoking Tobacco: Never Assessed Sex and Gender Information Value Date Recorded Sex Assigned at Not on file Legal Sex Male 2:31 PM CDT Gender Identity Not on file Sexual Orientation Not on file documented as of this encounter Miscellaneous Notes * Cerner Conversion Note - Historical ProviderMD - 01/09/2019 4:03 PM PROFESSIONAL HOUSING CONSULTANT Admission History, Adult Entered On: 01/09/2019 16:47 [...] General Info Support Person/Pt Rep Name : advid PLATA Contact Password : Nas Support Person/Pt Rep Contact Information : [phone] Want Family/Rep/Phys Notified of Admit : No Emergency Contact #1 : Noemi Pollock Emergency Contact #1 Emergency Contact #1 Relationship : spouse Emergency Contact #2 : Minal Bernardo Emergency Contact #2 Emergency Contact #2 Relationship : daughter Primary Language : Tongan Preferred Communication Mode : Verbal Communication Barrier [...] Scale Risk Level : 0-24 Low Risk Brawley Fall Interventions : Adequate lighting, Assistive devices [...] Source : Stated Height Entry Format : [place] Height, Feet : 5 ft(Converted to: 152 cm, 60 Inch) Height, Inches : 9 Inch(Converted to: 0 ft 9 Inch, 22.86 cm) Clinical Height : 175.26 cm Body Surface Area (BSA) : 1.92 m2 Body Mass Index : 24.9 kg/m2 (HI) [place] Body Weight : 70 kg Jaielne Calvillo RN - 01/09/2019 19:02 EST Weight Source : Standing scale Weight Entry Format : [place] Clinical Dosing Weight : 76.53 kg Weight, [...]
--- OUTSIDE RECORDS SUMMARY | 2025-02-25 07:51 | XMS_ITS | Encounter Summary ---
Author Organization [employer] ([place], [place], [place], [place], [place]) Address [address] [place] [address] Care Team Providers Care Barrel Endshake Adjuster Name Role Phone Unavailable Primary Care Provider Unavailabl e Encounter Details Date Type Department Care Team (Late st Contact Info) Description 01/10/2019 Transcribed Document [facility] [place] [facility] [address] ProviderJose MD [address] [place] [address] Social History Tobacco Use Types Packs/Day Years Used Date Smoking Tobacco: Never Assessed Sex and Gender Information Value Date Recorded Sex Assigned at Not on file Legal Sex Male 2:31 PM CDT Gender Identity Not on file Sexual Orientation Not on file documented as of this encounter Miscellaneous Notes * Cerner Conversion Note - Jose ProviderMD - 01/10/2019 3:28 PM SHELL MOLDING ROLLER BLAST OPERATOR DATE OF SERVICE: 01/10/2019 PROCEDURES: 1. [...] PROCEDURE: The patient was brought to heart tag and label cutter where the right wrist was anesthetized with 1 cc lidocaine. A 6-Estonian artery sheath was placed. Landon catheter was [...] then question of ICD will be raised. /[id number] MD BLAISE Krishnan/TOM / BLAISE / MODL /[id number] documented in this encounter Plan of Treatment Not on file documented as of this encounter Visit Diagnoses Not on filedocumented in this encounter
--- OUTSIDE RECORDS SUMMARY | 2025-02-25 07:51 | XMS_ITS | Encounter Summary ---
Author Organization [employer] ([place], [place], [place], [place], [place]) Address [address] [place] [address] Care Team Providers Care Soil Checker Name Role Phone Unavailable Primary Care Provider Unavailabl e Encounter Details Date Type Department Care Team (Late st Contact Info) Description 01/09/2019 Transcribed Document [facility] [place] [address] [place] [address] ProviderJose MD [address], [place] [id number] Social History Tobacco Use Types Packs/Day Years Used Date Smoking Tobacco: Never Assessed Sex and Gender Information Value Date Recorded Sex Assigned at Not on file Legal Sex Male 2:31 PM CDT Gender Identity Not on file Sexual Orientation Not on file documented as of this encounter Miscellaneous Notes * Cerner Conversion Note - Historical ProviderMD - 01/09/2019 4:39 PM BAND ATTACHER Education-Cardiac Topics Entered On: 01/09/2019 21:13 EST Performed On: 01/09/2019 16:39 EST by Jailene Calvillo RN Teaching/Learning Assessment Barriers To Learning : None evident Individuals Taught : Patient, Spouse Readiness to Learn : Uninterested Jailene Calvillo RN - 01/09/2019 21:13 EST Electronically signed by [facility] Conversion Wind Turbine Electrical Engineer Cerner at 06/23/2022 11:59 AM CDT documented in this encounter Plan of Treatment Not on file documented as of this encounter Visit Diagnoses Not on filedocumented in this encounter
--- OUTSIDE RECORDS SUMMARY | 2025-02-25 07:51 | XMS_ITS | Encounter Summary ---
Author Organization [employer] ([place], [place], [place], [place], [place]) Address [address] [place] [address] Care Team Providers Care Computational Mathematician Name Role Phone Unavailable Primary Care Provider Unavailabl e Encounter Details Date Type Department Care Team (Late st Contact Info) Description 01/10/2019 Transcribed Document [facility] [place] [address] [place] [address] ProviderJose MD [address] [place] [address] Social History Tobacco Use Types Packs/Day Years Used Date Smoking Tobacco: Never Assessed Sex and Gender Information Value Date Recorded Sex Assigned at Not on file Legal Sex Male 2:31 PM CDT Gender Identity Not on file Sexual Orientation Not on file documented as of this encounter Miscellaneous Notes * Cerner Conversion Note - Historical ProviderMD - 01/10/2019 8:05 AM RECTIFYING ATTENDANT Flatbed Driver Details Entered On: 01/10/2019 8:05 EST Performed [...]
--- OUTSIDE RECORDS SUMMARY | 2025-02-25 07:51 | XMS_ITS | Encounter Summary ---
Author Organization [employer] ([place], [place], [place], [place], [place]) Address [address] [place] [address] Care Team Providers Care Heat Seal Operator Name Role Phone Unavailable Primary Care Provider Unavailabl e Encounter Details Date Type Department Care Team (Late st Contact Info) Description 01/10/2019 Transcribed Document [facility] [place] [address] [place] [address] ProviderJose MD [address] [place], [place] [address] Social History Tobacco Use Types Packs/Day Years Used Date Smoking Tobacco: Never Assessed Sex and Gender Information Value Date Recorded Sex Assigned at Not on file Legal Sex Male 2:31 PM CDT Gender Identity Not on file Sexual Orientation Not on file documented as of this encounter Miscellaneous Notes * Cerner Conversion Note - Historical ProviderMD - 01/10/2019 5:00 AM ELECTRIC ORGAN ASSEMBLER AND CHECKER Chart Check - Review Order Profile Entered [...]
--- OUTSIDE RECORDS SUMMARY | 2025-02-25 07:51 | XMS_ITS | Encounter Summary ---
Author Organization [employer] ([place], [place], [place], [place], [place]) Address [address] [place] [address] Care Team Providers Care Chef & Owner Name Role Phone Unavailable Primary Care Provider Unavailabl e Encounter Details Date Type Department Care Team (Late st Contact Info) Description 01/10/2019 Transcribed Document [facility] [place] [address] [place] [address] ProviderJose MD [address] [place] [address] Social History Tobacco Use Types Packs/Day Years Used Date Smoking Tobacco: Never Assessed Sex and Gender Information Value Date Recorded Sex Assigned at Not on file Legal Sex Male 2:31 PM CDT Gender Identity Not on file Sexual Orientation Not on file documented as of this encounter Miscellaneous Notes * Cerner Conversion Note - Historical ProviderMD - 01/10/2019 9:24 AM INGOT CASTER Therapy Screen, PT Entered On: 01/10/2019 10:31 [...] EST Electronically signed by Shay Bernardo Conversion Blanket Cutting Machine Operator Cerner at 06/23/2022 11:57 AM CDT documented in this encounter Plan of Treatment Not on file documented as of this encounter Visit Diagnoses Not on filedocumented in this encounter
--- OUTSIDE RECORDS SUMMARY | 2025-02-25 07:51 | XMS_ITS | Encounter Summary ---
Author Organization [employer] ([place], [place], [place], [place], [place]) Address [address] [place] [address] Care Team Providers Care Asbestos Worker Helper Name Role Phone Unavailable Primary Care Provider Unavailabl e Encounter Details Date Type Department Care Team (Late st Contact Info) Description 01/11/2019 Transcribed Document [facility] [place] [address] [place] [address] ProviderJose MD [address] [place], [place] [address] Social History Tobacco Use Types Packs/Day Years Used Date Smoking Tobacco: Never Assessed Sex and Gender Information Value Date Recorded Sex Assigned at Not on file Legal Sex Male 2:31 PM CDT Gender Identity Not on file Sexual Orientation Not on file documented as of this encounter Miscellaneous Notes * Cerner Conversion Note - Historical ProviderMD - 01/11/2019 2:00 AM BOX CLOSING MACHINE OPERATOR Physician Primary Care Sports Medicine Details Entered On: 01/11/2019 2:18 EST Performed [...] : Appropriate Arterial Line : No Rowan Salcedo, COLBY - 01/11/2019 2:18 EST documented in this encounter Plan of Treatment Not on file documented as of this encounter Visit Diagnoses Not on filedocumented in this encounter
--- OUTSIDE RECORDS SUMMARY | 2025-02-25 07:51 | XMS_ITS | Encounter Summary ---
Author Organization [employer] ([place], [place], [place], [place], [place]) Address [address] [place] [address] Care Team Providers Care News Production Assistant Name Role Phone Unavailable Primary Care Provider Unavailabl e Encounter Details Date Type Department Care Team (Late st Contact Info) Description 01/10/2019 Transcribed Document [facility] [place] Family Medicine [address] [place] [address] ProviderJose MD [address] [id number] Social History Tobacco Use Types Packs/Day Years Used Date Smoking Tobacco: Never Assessed Sex and Gender Information Value Date Recorded Sex Assigned at Not on file Legal Sex Male 2:31 PM CDT Gender Identity Not on file Sexual Orientation Not on file documented as of this encounter Miscellaneous Notes * Cerner Conversion Note - Historical ProviderMD - 01/10/2019 11:[address] [place] OT Charges Entered On: 01/10/2019 11:16 EST Performed On: 01/10/2019 11:16 EST by KIM GUZMAN OTR/Jamilah Loving OT Charges Screen For Environmental Health And Safety Manager : 1 KIM GUZMAN OTR/Jamilah - 01/10/2019 11:16 EST documented in this encounter Plan of Treatment Not on file documented as of this encounter Visit Diagnoses Not on filedocumented in this encounter
--- OUTSIDE RECORDS SUMMARY | 2025-02-25 07:51 | XMS_ITS | Encounter Summary ---
Author Organization [employer] ([place], [place], [place], [place], [place]) Address [address] [place] [address] Care Team Providers Care Blending Tank Tender Helper Name Role Phone Unavailable Primary Care Provider Unavailabl e Encounter Details Date Type Department Care Team (Late st Contact Info) Description 01/09/2019 Transcribed Document [facility] [place] [address] [place] [address] ProviderJose MD [address] [place], [place] [address] Social History Tobacco Use Types Packs/Day Years Used Date Smoking Tobacco: Never Assessed Sex and Gender Information Value Date Recorded Sex Assigned at Not on file Legal Sex Male 2:31 PM CDT Gender Identity Not on file Sexual Orientation Not on file documented as of this encounter Miscellaneous Notes * Cerner Conversion Note - Historical ProviderMD - 01/09/2019 4:39 PM RECOVERY AUDITOR Pain Assessment Entered On: 01/09/2019 21:12 EST [...]
--- OUTSIDE RECORDS SUMMARY | 2025-02-25 07:51 | XMS_ITS | Encounter Summary ---
Author Organization [employer] ([place], [place], [place], [place], [place]) Address [address] [place] [address] Care Team Providers Care Network Internship Name Role Phone Unavailable Primary Care Provider Unavailabl e Encounter Details Date Type Department Care Team (Late st Contact Info) Description 01/11/2019 Transcribed Document [facility] [place] Medicine [address] [place] [address] ProviderJose MD [address] [id number] Social History Tobacco Use Types Packs/Day Years Used Date Smoking Tobacco: Never Assessed Sex and Gender Information Value Date Recorded Sex Assigned at Not on file Legal Sex Male 2:31 PM CDT Gender Identity Not on file Sexual Orientation Not on file documented as of this encounter Miscellaneous Notes * Cerner Conversion Note - Jose ProviderMD - 01/11/2019 11:00 AM DIESEL ENGINE INSPECTOR UM Authorization Entered On: 01/11/2019 11:01 EST Performed On: 01/11/2019 11:00 EST by KATHARINE MOREAU Rn-Utilization Review Primary Insurance Authorization Authorization and Policy Numbers : Insurance 1 Health Plan: R Policy Number: [id number] Authorization Number: Insurance 2 Health Plan: MEDICARE Policy Number: [id number] Authorization Number: Insurance Primary Name : [facility] [id number] Authorization Status-Primary : Pending clinicals Authorization Fax Number-Primary : [phone] Auth/Referral Phone Number-Primary : [phone] Auth/Referral Contact Name-Primary : Loren Reference Number-Primary : [id number] Authorized Service Begin Date-Primary : 01/11/2019 EST Authorization Comments-Primary : Clinicals faxed via [employer] to [phone] Historical Authorization Comments-Primary : Comment 1: rec'd call from Loren requesting clinicals be faxed to her [phone] fax [phone] (COLBY FABIAN, RN-Utilization Review 01/11/2019 10:04) Comment 2: Auth initiated on [facility] portal. Awaiting call for clinicals. (KATHARINE MOREAU, Michael-Utilization Review 01/10/2019 10:02) KATHARINE MOREAU Rn-Utilization Review - 01/11/2019 11:00 EST Electronically signed by Shay Bernardo Conversion Hearing Impaired Itinerant Teacher Cerner at 06/23/2022 11:53 AM CDT documented in this encounter Plan of Treatment Not on file documented as of this encounter Visit Diagnoses Not on filedocumented in this encounter
--- OUTSIDE RECORDS SUMMARY | 2025-02-25 07:51 | XMS_ITS | Encounter Summary ---
Author Organization [employer] ([place], [place], [place], [place], [place]) Address [address] [place] [address] Care Team Providers Care Pebble Mill Operator Name Role Phone Unavailable Primary Care Provider Unavailabl e Encounter Details Date Type Department Care Team (Late st Contact Info) Description 01/11/2019 Transcribed Document [facility] [place] [address] [place] [address] ProviderJose MD [address] [place], [place] [id number] Social History Tobacco Use Types Packs/Day Years Used Date Smoking Tobacco: Never Assessed Sex and Gender Information Value Date Recorded Sex Assigned at Not on file Legal Sex Male 2:31 PM CDT Gender Identity Not on file Sexual Orientation Not on file documented as of this encounter Miscellaneous Notes * Cerner Conversion Note - Jose ProviderMD - 01/11/2019 3:23 PM BLOCK CABLEMAN Patient Education Materials Follows: Heart-Healthy Eating Plan [...] foods can I eat? Grains Breads, including [place], white, chencho, wheat, raisin, rye, oatmeal, and Tongan. Tortillas that are neither fried nor made with lard or trans fat. Low-fat rolls, including hotdog and hamburger buns and German muffins. Biscuits. Muffins. Waffles. Pancakes. Light popcorn. Whole-grain cereals. Flatbread. [place] toast. Pretzels. Breadsticks. Rusks. Low-fat snacks. Low-fat [...] cooking, baking, salads, and as spreads. Other [place] powder. Coffee and tea. All seasonings and [...] cottage cheese. Whole-milk cheeses, including blue (bettye), Vigo Rajendra, Brie, Antelmo, Sri [place]an, Havarti, Georgian, cheddar, Camembert, and [place]. Whole or 2% milk that is liquid, [...] that has suet, meat fat, or shortening. [place] butter, hydrogenated oils, palm oil, coconut oil, [...] 08/21/2012 Document Revised: 07/28/2016 Document Reviewed: 08/14/2014 [employer] Guide To Interactive Patient Education ? 2019 [employer]. Radial Site Care Refer to this sheet [...] 03/25/2011 Document Revised: 07/28/2016 Document Reviewed: 09/08/2014 [employer] Interactive Patient Education ? 2019 [employer] Coronary Angiogram With Stent, Care After [...] and water are not available, use hand machine tool builder. ? Change your dressing as told by [...] such as diabetes. General instructions ??? Take llte-fdf-ezvlfoc and prescription medicines only as told by [...] 09/09/2005 Document Revised: 11/17/2016 Document Reviewed: 11/17/2016 Girls Guide To Interactive Patient Education ? 2019 [employer] Guide To Inc. Non-ST Segment Elevation Heart Attack A [...] 01/28/2015 Elsevier Interactive Patient Education ? 2017 [employer] Inc[employer] documented in this encounter Plan of Treatment Not on file documented as of this encounter Visit Diagnoses Not on filedocumented in this encounter
--- OUTSIDE RECORDS SUMMARY | 2025-02-25 07:51 | XMS_ITS | Encounter Summary ---
Author Organization [employer] ([place], [place], [place], [place], [place]) Address [address] [place] [address] Care Team Providers Care Physicians And Surgeons Name Role Phone Unavailable Primary Care Provider Unavailabl e Encounter Details Date Type Department Care Team (Late st Contact Info) Description 01/09/2019 Transcribed Document [facility] [place] Family Medicine [address] [place] [address] ProviderJose MD [address] [place] [address] Social History Tobacco Use Types Packs/Day Years Used Date Smoking Tobacco: Never Assessed Sex and Gender Information Value Date Recorded Sex Assigned at Not on file Legal Sex Male 2:31 PM CDT Gender Identity Not on file Sexual Orientation Not on file documented as of this encounter Miscellaneous Notes * Cerner Conversion Note - Historical ProviderMD - 01/09/2019 4:39 PM MANAGER UTILIZATION Nutrition Assessment Entered On: 01/10/2019 11:30 EST [...] Spring 2018 for possible prostate cancer but told him he wasn't a candidate for [...]
--- OUTSIDE RECORDS SUMMARY | 2025-02-25 07:51 | XMS_ITS | Encounter Summary ---
Author Organization [facility] Address [address] [place] [address] Care Team Providers Care Cook Apprentice Name Role Phone Eric Maria MD Primary Care Provider Encounter Details Date Type Department Care Team (Late st Contact Info) Description 05/26/2024 Orders Only External Location [address] [place] [address] Provider, External Social History Tobacco Use Types [...] Visit [place] [facility] [address], [address] [place] [address] Chu Null MD [address] [place] [address] 09/11/2025 10:00 AM EDT Ancillary Procedure [facility] Medicine Specialties [address], [address] [place] [address] documented as of this encounter [...] documented as of this encounter Care Teams Cook Apprentice Relationship Specialty Start Date End Date Eric Maria MD [address] [place] [address] PCP - General 11/04/20 documented as of this encounter
--- OUTSIDE RECORDS SUMMARY | 2025-02-25 07:51 | XMS_ITS | Encounter Summary ---
Author Organization [employer] ([place], [place], [place], [place], [place]) Address [address] [place] [address] Care Team Providers Care Plastic Installer Name Role Phone Unavailable Primary Care Provider Unavailabl e Encounter Details Date Type Department Care Team (Late st Contact Info) Description 01/11/2019 Transcribed Document [facility] [place] Family Medicine [address] [place] [address] ProviderJose MD [address] [place], [place] [address] Social History Tobacco Use Types Packs/Day Years Used Date Smoking Tobacco: Never Assessed Sex and Gender Information Value Date Recorded Sex Assigned at Not on file Legal Sex Male 2:31 PM CDT Gender Identity Not on file Sexual Orientation Not on file documented as of this encounter Miscellaneous Notes * Cerner Conversion Note - Historical ProviderMD - 01/11/2019 3:23 PM MUSICAL INSTRUMENTS ASSEMBLER Stroke/Warfarin Instructions Entered On: 01/11/2019 15:23 EST [...]
--- OUTSIDE RECORDS SUMMARY | 2025-02-25 07:51 | XMS_ITS | Encounter Summary ---
Author Organization [employer] ([place], [place], [place], [place], [place]) Address [address] [place] [address] Care Team Providers Care Unit Aide Tech Name Role Phone Unavailable Primary Care Provider Unavailabl e Encounter Details Date Type Department Care Team (Late st Contact Info) Description 01/11/2019 Transcribed Document [facility] [place] [address] [place] [address] ProviderJose MD [address] [place], [place] [id number] Social History Tobacco Use Types Packs/Day Years Used Date Smoking Tobacco: Never Assessed Sex and Gender Information Value Date Recorded Sex Assigned at Not on file Legal Sex Male 2:31 PM CDT Gender Identity Not on file Sexual Orientation Not on file documented as of this encounter Miscellaneous Notes * Cerner Conversion Note - Historical ProviderMD - 01/11/2019 5:00 AM WRAPPING CLERK Height and Weight, Routine Entered On: 01/11/2019 4:47 EST Performed On: 01/11/2019 5:00 EST by Aleida Philippe CNA Height and Weight, Routine Routine Weight Source : Standing scale Routine Weight Entry Format : [place] Routine Weight, Pounds : 162 lb Routine Weight, Ounces : 7 oz Routine Weight Calculation : 73.84 kg Height Source : Stated Height Entry Format : [place] Height, Feet : 5 ft Height, Inches : 9 Inch Clinical Height : 175.26 cm Body Surface Area (BSA), Routine : 1.89 m2 Body Mass Index (BMI), Routine : 24.04 kg/m2 Aleida Philippe CNA - 01/11/2019 4:46 EST Electronically signed by [facility] Conversion Design Consultant Cerner at 06/23/2022 11:52 AM CDT documented in this encounter Plan of Treatment Not on file documented as of this encounter Visit Diagnoses Not on filedocumented in this encounter
--- OUTSIDE RECORDS SUMMARY | 2025-02-25 07:51 | XMS_ITS | Encounter Summary ---
Author Organization [employer] ([place], [place], [place], [place], [place]) Address [address] [place] [address] Care Team Providers Care Glass Rolling Machine Operator Name Role Phone Unavailable Primary Care Provider Unavailabl e Encounter Details Date Type Department Care Team (Late st Contact Info) Description 01/11/2019 Transcribed Document [facility] [place] Family Medicine [address] [place] [address] ProviderJose MD [address], [place] [id number] Social History Tobacco Use Types Packs/Day Years Used Date Smoking Tobacco: Never Assessed Sex and Gender Information Value Date Recorded Sex Assigned at Not on file Legal Sex Male 2:31 PM CDT Gender Identity Not on file Sexual Orientation Not on file documented as of this encounter Miscellaneous Notes * [employer]ner Conversion Note - Historical ProviderMD - 01/11/2019 3:57 PM DIRECTOR CONSUMER AFFAIRS Nursing Discharge Summary Entered On: 01/11/2019 15:58 EST Performed On: 01/11/2019 15:57 EST by Jailene Calvillo wine cellar worker Documentation Discharge Date/Time : 01/11/2019 15:50 EST [...] - 01/11/2019 15:57 EST Electronically signed by Az [facility] Conversion Advanced Solutions Architect Cerner at 06/23/2022 11:58 AM CDT documented in this encounter Plan of Treatment Not on file documented as of this encounter Visit Diagnoses Not on filedocumented in this encounter
--- OUTSIDE RECORDS SUMMARY | 2025-02-25 07:51 | XMS_ITS | Encounter Summary ---
Author Organization [employer] ([place], [place], [place], [place], [place]) Address [address] [place] [address] Care Team Providers Care Bus Person Name Role Phone Unavailable Primary Care Provider Unavailabl e Encounter Details Date Type Department Care Team (Late st Contact Info) Description 01/09/2019 Transcribed Document [facility] [place] Family Medicine [address] [place] [address] ProviderJose MD [address], [place] [id number] Social History Tobacco Use Types Packs/Day Years Used Date Smoking Tobacco: Never Assessed Sex and Gender Information Value Date Recorded Sex Assigned at Not on file Legal Sex Male 2:31 PM CDT Gender Identity Not on file Sexual Orientation Not on file documented as of this encounter Miscellaneous Notes * Cerner Conversion Note - Historical ProviderMD - 01/09/2019 4:39 PM COMMUNITY OUTREACH DIRECTOR Pain Assessment Entered On: 01/11/2019 0:03 [...]
--- OUTSIDE RECORDS SUMMARY | 2025-02-25 07:51 | XMS_ITS | Encounter Summary ---
Author Organization [employer] ([place], [place], [place], [place], [place]) Address [address] [place] [address] Care Team Providers Care Tablet Tester Name Role Phone Unavailable Primary Care Provider Unavailabl e Encounter Details Date Type Department Care Team (Late st Contact Info) Description 01/09/2019 Transcribed Document [facility] [place] Family Medicine [address] [place] [address] ProviderJose MD [address], [place] [address] Social History Tobacco Use Types Packs/Day Years Used Date Smoking Tobacco: Never Assessed Sex and Gender Information Value Date Recorded Sex Assigned at Not on file Legal Sex Male 2:31 PM CDT Gender Identity Not on file Sexual Orientation Not on file documented as of this encounter Miscellaneous Notes * Cerner Conversion Note - Historical ProviderMD - 01/09/2019 5:00 PM 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
--- OUTSIDE RECORDS SUMMARY | 2025-02-25 07:51 | XMS_ITS | Encounter Summary ---
Author Organization [employer] ([place], [place], [place], [place], [place]) Address [address] [place] [address] Care Team Providers Care Energy Systems Engineer Name Role Phone Unavailable Primary Care Provider Unavailmacario e Encounter Details Date Type Department Care Team (Late st Contact Info) Description 01/10/2019 Transcribed Document [facility] [place] [address] [place] [address] ProviderJose MD [address], [place] [address] Social History Tobacco Use Types Packs/Day Years Used Date Smoking Tobacco: Never Assessed Sex and Gender Information Value Date Recorded Sex Assigned at Not on file Legal Sex Male 2:31 PM CDT Gender Identity Not on file Sexual Orientation Not on file documented as of this encounter Miscellaneous Notes * [employer]ner Conversion Note - Historical ProviderMD - 01/10/2019 2:00 AM TAX PROFESSIONAL Coding Compliance Auditor Details Entered On: 01/10/2019 1:28 EST Performed [...]
--- OUTSIDE RECORDS SUMMARY | 2025-02-25 07:51 | XMS_ITS | Encounter Summary ---
Author Organization [employer] ([place], [place], [place], [place], [place]) Address [address] [place] [address] Care Team Providers Care Frankfurter Inspector Name Role Phone Unavailable Primary Care Provider Unavailabl e Encounter Details Date Type Department Care Team (Late st Contact Info) Description 01/09/2019 Transcribed Document [facility] [place] [address] [place] [address] ProviderJose MD [address] [place] [address] Social History Tobacco Use Types Packs/Day Years Used Date Smoking Tobacco: Never Assessed Sex and Gender Information Value Date Recorded Sex Assigned at Not on file Legal Sex Male 2:31 PM CDT Gender Identity Not on file Sexual Orientation Not on file documented as of this encounter Miscellaneous Notes * Cerner Conversion Note - Historical ProviderMD - 01/09/2019 4:39 PM GOLD STAMPER Cardiac and Pulmonary Outpatient [facility] Entered On: 01/17/2019 13:47 EST Performed On: 01/09/2019 16:39 EST by ADELAIDE CHOI RN Cardiac and Pulmonary Outpatient [facility] Cardiac Outpatient Rehab Evaluation Comment : Order faxed to [facility] due to pts location. ADELAIDE CHOI RN - 01/17/2019 13:46 EST documented in this encounter Plan of Treatment Not on file documented as of this encounter Visit Diagnoses Not on filedocumented in this encounter
--- OUTSIDE RECORDS SUMMARY | 2025-02-25 07:51 | XMS_ITS | Encounter Summary ---
Author Organization [employer] ([place], [place], [place], [place], [place]) Address [address] [place] [address] Care Team Providers Care Flow Trader Name Role Phone Unavailable Primary Care Provider Unavailabl e Encounter Details Date Type Department Care Team (Late st Contact Info) Description 01/10/2019 Transcribed Document [facility] [place] [address] [place] [address] ProviderJose MD [address] [place] [address] Social History Tobacco Use Types Packs/Day Years Used Date Smoking Tobacco: Never Assessed Sex and Gender Information Value Date Recorded Sex Assigned at Not on file Legal Sex Male 2:31 PM CDT Gender Identity Not on file Sexual Orientation Not on file documented as of this encounter Miscellaneous Notes * Cerner Conversion Note - Historical ProviderMD - 01/10/2019 5:00 AM 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 Height and Weight, Routine Entered On: 01/10/2019 6:08 EST Performed On: 01/10/2019 5:00 EST by Mitesh Hanson Cna I Height and Weight, Routine Routine Weight Source : Standing scale Routine Weight Entry Format : [place] Routine Weight, Pounds : 165 lb Routine Weight, Ounces : 8 oz Routine Weight Calculation : 75.23 kg Height Source : Stated Height Entry Format : [place] Height, Feet : 5 ft Height, Inches : 9 Inch Clinical Height : 175.26 cm Body Surface Area (BSA), Routine : 1.91 m2 Body Mass Index (BMI), Routine : 24.49 kg/m2 Mitesh Hanson Cna I - 01/10/2019 6:08 EST documented in this encounter Plan of Treatment Not on file documented as of this encounter Visit Diagnoses Not on filedocumented in this encounter
--- OUTSIDE RECORDS SUMMARY | 2025-02-25 07:51 | XMS_ITS | Encounter Summary ---
Author Organization [employer] ([place], [place], [place], [place], [place]) Address [address] [place] [address] Care Team Providers Care Help Desk Support Name Role Phone Unavailable Primary Care Provider Unavailabl e Encounter Details Date Type Department Care Team (Late st Contact Info) Description 01/10/2019 Transcribed Document [facility] [place] [address] [place] [address] ProviderJose MD [address] [id number] Social History Tobacco Use Types Packs/Day Years Used Date Smoking Tobacco: Never Assessed Sex and Gender Information Value Date Recorded Sex Assigned at Not on file Legal Sex Male 2:31 PM CDT Gender Identity Not on file Sexual Orientation Not on file documented as of this encounter Miscellaneous Notes * Cerner Conversion Note - Jose ProviderMD - 01/10/2019 9:38 PM THEATRICAL SCENIC DESIGNER Rapid Response Team Documentation Entered On: 01/10/2019 [...] change in location/level of care Rapid Response Help Desk Support #1 : Shital Martins, RN Shital Martins, RN - 01/10/2019 21:38 EST Electronically signed by Az [facility] Conversion Watch Engineer Cerner at 06/23/2022 11:55 AM CDT documented in this encounter Plan of Treatment Not on file documented as of this encounter Visit Diagnoses Not on filedocumented in this encounter
--- OUTSIDE RECORDS SUMMARY | 2025-02-25 07:51 | XMS_ITS | Continuity of Care Document ---
Author Organization [facility] Address [address] [place] [address] Care Team Providers Care Social Worker Assistant Name Role Phone LILIAN AREVALO Manager Sustainability Assessment No assessment recorded. Plan of Treatment Reminders Order Date Submit Date Provider Last Modified By Organization Details Last Modified Time Details Appointments None recorded. Lab None recorded. Referral None recorded. Procedures None recorded. Surgeries None recorded. Imaging XR, lumbosacral spine, 2 or 3 view 2024 025 [facility], [address] [place] [address], [address], 09:17:08 Medication Orders Salonpas (lidocaine) 4 % topical patch [address], [address], 11:02:46 Patient TargetsNo targets recorded. Patient Instructions Encounter Date Encounter Id Patient Instructions Last Modified By Organization Details Last Modified Time 01/13/2025 [id number] Follow up as needed. The patient will report any new or worsening symptoms. The patient will return to clinic if new or worsening symptoms are noted, or if if the symptoms do not resolve. If marked worsening of the symptoms is noted the patient will go to the emergency department of their choice. [email or web address] Not available 01/13/2025 11:22:55 Reason for Referral None Reported. Results Created Date Observation Date Name Description Value Unit Range Abnormal Flag Note LastModifiedBy Organization Detail LastModifiedTime 12/14/1911/19/2024 CT, abdom en + pelvi s, w/ contr ast No observ ation record ed. amparo [facility] ([facility]) [address], [place], [address], 12/13/2024 13:03:11 01/15/20 25 XR, lumbo sacra l spine , 2 or 3 view No observ ation record ed. [facility] [address], [place], [address], 01/14/2025 11:19:14 Result Notes None recorded. Problems Name Problem SNOMED Code Status Onset Date Resolution Date Notes Provider Name and Address Organization Details Recorded Time History of glaucoma 280207862 Active Aleida Stone null, [facility] 17:52:11 History of liver disease 918863571 Active Aleida Stone null, [facility] 17:52:11 Postoper ative retentio n of urine 353419814 Active Aleida Stone null, [facility] 17:52:11 Subcapit al fracture of neck of femur 550163856 Active Aleida Stone null, [facility] 17:52:11 Retentio n of urine 553678010 Active Aleida Stone null, [facility] 17:52:11 Closed fracture of hip 653197651 Active Aleida Stone null, [facility] 17:52:11 History of myocardi al infarcti on 013727834 Active Aleida Stone null, [facility] 17:52:11 Adenocar cinoma of prostate 800601115 Active Aleida Stone null, [facility] 17:52:11 History of circumci maureen 335207907 Active Aleida Stone null, [facility] 17:52:11 Hypokale jamila 27352069 Active Prema Vanessa null, [facility] 5 08:43:51 Parkinso n's disease 80001412 Active Aleida Stone null, [place] - [facility] 5 17:52:11 Arterios clerotic vascular disease 44674301 Active Aleida Stone null, [facility] 17:52:11 Erectile dysfunct ion 158693021 Active Aleida Stone null, [facility] 17:52:11 History of macular degenera tion 36751302564 046894 Active Aleida Stone null, [facility] 5 09:24:08 Acute retentio n of urine 810487484 Active Aleida Stone null, [facility] 09:24:08 Urinary tract infectio us disease 67783624 Active Aleida Stone null, [facility] 09:24:08 Decline in function al status 43588196916 9106 Active Aleida Stone null, [facility] 17:13:21 Anemia 736405310 Active Prema Vanessa null, [facility] 08:43:51 Paroxysm al atrial fibrilla tion 568247629 Active Aleida Stone null, [facility] 17:13:21 Acute kidney injury 74037408 Active Aleida Stone null, [facility] 13:45:01 Acute posthemo rrhagic anemia 357741018 Active Aleida Stone null, [facility] 13:45:01 Shock 24062726 Active Aleida Stone null, [facility] 13:45:01 Dehydrat ion 48692849 Active Aleida Stone null, [facility] 13:45:01 Altered mental status 490243416 Active Aleida Stone null, [facility] 13:45:01 Low blood pressure 26110791 Active Prema Vanessa null, [facility] 08:43:51 Catheter -associa gypsy urinary tract infectio n 865133577 Active Aleida Stone null, [facility] 13:45:01 Gastroin testinal hemorrha ge 40339567 Active Aleida Stone null, [facility] 5 13:45:01 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 14979134 Active Aleida Stone null, - [facility] 5 13:45:01 Hyponatr emia 56699875 Active Aleida Stone null, - [facility] 5 13:52:00 Communit y acquired pneumoni a 748812248 Active Aleida Stone null, - [facility] 5 17:40:48 History of urinary tract infectio n 39054515512 07 Active Prema Vanessa null, - [facility] 5 08:43:51 History of depressi on 867897214 Active Prema Vanessa null, - [facility] 5 08:43:51 History of anticoag ulant therapy 398889407 Active Prema Vanessa null, - [facility] 5 08:43:51 Hypomagn esemia 699278234 Active Prema Vanessa null, - [facility] 5 08:43:51 Abdomina l pain 95517656 Active Prema Vanessa null, - [facility] 5 08:43:51 History of brain disorder 294808806 Active Prema Vanessa null, - [facility] 5 08:43:51 History of Disorder 069505952 Active Prema Vanessa null, - [facility] 5 08:43:51 Hyperten sive disorder 54199753 Active Prema Vanessa null, - [facility] 5 08:43:51 History of procedur e 343176223 Active Prema Vanessa null, - [facility] 5 08:43:51 History of cataract extracti on 203019288 Active Prema Vanessa null, - [facility] 5 08:43:51 Phimosis 741379270 Active Prema Vanessa null, - [facility] 5 08:43:51 Heart disease 53762152 Active Prema Vanessa null, - [facility] 5 08:43:51 Pain of wrist region 95861749 Active Prema Vanessa null, [place] - [facility] 5 08:43:51 Acute hypokale jamila 60697895 Active Prema [place] [facility] 5 08:43:51 Disorder of brain 20215607 Active Prema [place] [facility] 5 08:43:51 Injury of head 16221434 Active Prema [place] [facility] 5 08:43:51 Asthenia 52738129 Active Aleida Stone [place] [facility] 5 14:56:12 Hypoglyc emia 636115192 Active Aleida Stone [place] [facility] 5 16:32:05 Essentia l hyperten maureen 93698961 Active 2015 Miguel Resendiz, [employer] [address], [place], [address], [place] [facility] 6 10:48:59 Mixed hyperlip idemia 099743069 Active 2015 Miguel Resendiz, [employer] [address], [place], [address], [place] [facility] 6 10:52:21 Diabetes mellitus 55967603 Active 2015 Miguel Resendiz, [employer] [address], [place], [address] [facility] 6 10:52:25 History of placemen t of stent for coronary artery disease 979876657 Active 2015 Miguel Resendiz, [employer] [address], [place], [address] [facility] 6 10:52:27 Degenera tive disorder of macula 126535104 Active 2015 Radhasuman Marieden null, [place] [facility] 6 14:40:51 Cataract 143406738 Active 2015 Radha Mal null[place] [facility] 6 14:40:57 Cardiac pacemake r in situ 348119788 Active 2015 Radha Luray null, [place] [facility] 6 14:42:23 History of atrial fibrilla tion 160293995 Active 2016 Eric Maria MD [address], [place], [address] [facility] 7 15:31:13 Uncontro lled type 2 diabetes mellitus 222654437 Active 2016 Eric Maria MD [address], [place], [address] [facility] 5 11:53:25 History of cerebrov ascular accident 952333336 Active 2016 Radha Marieden [place] [facility] 7 11:11:26 Left ventricu lar hypertro phy 26938223 Active 2016 Radha Marieden null[place] [facility] 7 11:11:42 Hyperten sive heart disease 30899207 Completed 201611/25/2019 Eric Maria MD [address], [place], [address], [place] [facility] 0 15:08:12 Prostate nodule 82765654107 9109 Active 2017 Eric Maria MD [address], [place], [address], [place] [facility] 8 12:38:39 Aneurysm of thoracic aorta 056228962 Active 2018 3.5cm ascendin g Eric Maria MD [address], [place], [address] [facility] 14:25:38 Stented coronary artery 566346950 Active 2018 Eric Maria MD [address], [place], [address] [facility] 14:29:39 Lymphade nopathy 36376082 Active 2018 Eric Maria MD [address], [place], [address] [facility] 14:40:30 Multiple nodules of lung 453325202 Active 2018 Eric Maria MD [address], [place], [address] [facility] 14:40:32 History of non-ST segment elevatio n myocardi al infarcti on 161111058 Active 2018 Eric Maria MD [address], [place], [address] [facility] 14:40:39 Sarcoido sis 57295406 Active 2019 Eric Maria MD [address], [place], [address] [facility] 16:36:27 Age related macular degenera tion 337440740 Active 2019 Eric Maria MD [address], [place], [address] [facility] 15:07:11 Visual impairme nt 125438504 Active 2019 Eric Maria MD [address], [place], [address] [facility] 0 15:07:22 Hyperten sive heart disease 92008762 Active 2019 Eric Maria MD [address], [place], [address] [facility] 0 15:08:12 Prostate specific antigen outside referenc e range 263748581 Active 2019 Eric Maria MD [address], [place], [address] [facility] 15:38:47 Dyspnea on exertion 71160969 Active 2019 Eric Maria MD [address], [place], [address] [facility] 14:09:57 Atrial fibrilla tion 82836329 Active 2019 Eric Maria MD [address], [place], [address] [facility] 12:09:20 History of malignan t neoplasm of prostate 880416543 Active 2020 Eric Maria MD [address], [place], [address] [facility] 09:48:01 Type 2 diabetes mellitus 78885456 Active 2020 Eric Maria MD [address], [place], [address] [facility] 11:24:54 Acquired thromboc ytopenia 33504309 Active 2020 Eric Maria MD [address], [place], [address] [facility] 09:47:00 Hyperlip idemia 09251712 Active 2021 Eric Maria MD [address], [place], [address] [facility] 10:05:44 Carcinom a of prostate 688249651 Active 2021 Eric Maria MD [address], [place], [address] [facility] 14:43:33 Headache 76720961 Active 2021 Eric Maria MD [address], [place], [address] [facility] 14:43:45 Recurren t falls 965705804 Active 2021 Eric Maria MD [address], [place], [address] [facility] 14:43:48 Memory impairme nt 861294514 Active 2021 Eric Maria MD [address], [place], [address] [facility] 14:43:49 Pain of right knee joint 47872064863 4100 Active 2022 Ankita Maria APRN [address], [place], [address], [place] [facility] 12:18:01 Cobalami n deficien cy 638802058 Active 2022 Eric Maria MD [address], [place], [address] [facility] 11:56:24 Resting tremor 57490445 Active 2022 Eric Maria MD [address], [place], [address] [facility] 13:38:32 Depressi ve disorder 68640163 Active 2022 Eric Maria MD [address], [place], [address] [facility] 13:40:39 Primary insomnia 8794949 Active 2024 Maricarmen Diaz APRN [address], [place], [address] [facility] 11:23:59 Pancytop enia 790140742 Active 2024 Eric Maria MD [address], [place], [address] [facility] 11:49:54 Dyspnea 666162327 Active 2024 Eric Maria MD [address], [place], [address] [facility] 5 11:53:01 Bilatera l pleural effusion 341592196 Active 2024 Eric Maria MD [address], [place], [address] [facility] 5 11:53:53 Chronic heart failure co-occur rent with normal ejection fraction 31269584028 02 Active 2024 Eric Maria MD [address], [place], [address] [facility] 5 11:54:39 Gallston e 526547183 Active 2024 Eric Maria MD [address], [place], [address] [facility] 5 11:41:23 Compress ion fracture of thoracic spine 084213656 Active 2024 Eric Maria MD [address], [place], [address] [facility] 12:14:46 Acute low back pain 862548687 Active 2024 Maricarmen Diaz APRN [address], [place], [address], [place] [facility] 5 11:00:59 Compress ion fracture of L2 26723345861 047693 Active 2024 Maricarmen Diaz APRN [address], [place], [address], [place] [facility] 10:16:56 Notes:Some problems listed i n Documents: #[id number], #[id number], #[id number], #[id number], #[id number], #[id number], #[id number], #[id number], #[id number], #[id number] could not be added to this patient's chart. Please review these documents and add these problems to the patient's chart manually as needed. Problem Notes None recorded. Procedures Surgical History Date Name Laterality Status Provider Name and Address Organization Details Recorded Time 11/30/19 Medication Reconcilliation completed Prema Vanessa [place] - [...] Medication Reconcilliation completed Renae Sheth RN [address] [facility], [place], [address] [place] - [facility] 09/28/2023 09:46:47 05/24/19 24 [...] 01/14/2019 13:50:34 Pacemaker Placement completed Amand a Mal [place] - [facility] 03/02/2016 14:42:48 Imaging Results None recorded. Procedure Notes None recorded. Medical Equipment None Reported. Allergies Allergen ID Allergen Name Allergen Category Reaction Reaction Severity Criticality Documentation Date Start Date Code Code System Note Provider Name and Address Organization Details Recorded Time 433624 No known allergy (situatio n) Not available Not available Not available Not available 11/20/2024 93480 6003 SNOMED Aleida Stone null, [place] - [facility] 5 14:56:11 No known drug allergies Medications Name [...] by oral route. 2024 active OTC per CMR 09/30/24 Not Available Not Available Not Available [...] aspirin 325 mg oral tablet,d elayed release (/JAMESON); Recorded Status: Recorded on: 01/15/20 14 11:01AM; User: [email or web address] [email or web address]. Completi on: 07/14/19 15;Print ed: 01/15/20 14 Not [...] Disconti nued on: 04/02/19 14 9:39AM;U ser: [email or web address]. Completi on: 05/27/19 13;Print ed: 11/28/19 12 [...] Disconti nued on: 02/13/20 12 3:47PM;U ser: [email or web address] b;Est. Completi on: 01/18/20 12;Indic ation: Herpes [...] Recorded on: 03/18/19 16 10:52AM; User: [email or web address] Jiménez d: 03/18/19 16 Not Available Not Available [...] e 50 mcg/actua tion nasal spray,briana pension Fowler 2 sprays every day by intranas al [...] Status: Recorded on: 07/20/19 16 3:46PM;U ser: [email or web address]. Completi on: 01/16/20 16;Print ed: 07/20/19 16 Not Available Not Available Not Available BD Ultra-Fin e Mini Pen Needle 31 gauge x 05/19 DIRECTED 09/30 completed Not Available Not Available [...] Status: Recorded on: 03/18/19 16 10:31AM; User: [email or web address] Not Available Not Available Not Available Glipizide XL 2 po bid 01/14 completed glipizid e ER 10 mg;comme nt: Dosage change to 1 tablet BID;Roland rded Status: Recorded on: 11/28/19 12 9:54AM;D iscontin ued Status: Disconti nued on: 01/15/20 14 10:13AM; User: jennifer [email or web address]. Completi on: 05/27/19 13;Indic ation: None Selected [...] 16 3:46PM;U ser: [email or web address] b;Printe d: 07/20/19 Not Available Not Available Not Available metformin [...] Disconti nued on: 01/15/20 14 10:14AM; User: [email or web address] lowe;Est. Completi on: 05/27/19 13;Print ed: 11/28/19 12 [...] Available No t Available Vitals Date Recorded Body height Body mass index (BMI) Body weight Heart rate Oxygen saturation Respiratory rate Pain severity - 0-10 verbal numeric rating [Score] - Reported Body temperature Systolic And Diastolic Provider Name and Address Organization Details Last Updated DateTime 5 172.72 cm 20.7 kg/m2 47633.2 6 g 76 /min 98 % 18 /min 4 97.8 [degF] 126/64 mm[Hg] Pearl Yoo [place] - [facility] 5 10:54:05 Social History Question Answer Notes LastModified by Organizat ion Details LastModified Time Tobacco Smoking Status Never Smoker Prema Vanessa ott [place] - [facility] 04/13/2017 09:21:57 Able To Swim? Yes [email or web address] Information not available 08/24/2016 Do You Have An Advance Directive? No [email or web address] Information not available 08/24/2016 Do You Wear A Helmet When Biking? Yes Information not available 08/24/2016 Are You Blind Or Do You Have Difficulty Seeing? Yes Information not available 03/20/2017 What Is Your Level Of Caffeine Consumption? Moderate [email or web address] Information not available 08/24/2016 How Much Tobacco Do You Chew? 1/day Information not available 08/24/2016 Are You Deaf Or Do You Have Serious Difficulty Hearing? No Information not available 03/20/2017 What Type Of Diet Are You Following? DIABETIC [email or web address] Information not available 08/24/2016 Which Illicit Or Recreational Drugs Have You Used? Denies [email or web address] Information not available 08/24/2016 What Is The Highest Grade Or Level Of School You Have Completed Or The Highest Degree You Have Received? [id number] Information not available 05/29/2017 How Many Days Of Moderate To Strenuous Exercise, Like A Brisk Walk, Did You Do In The Last 7 Days? 0 Information not available 05/29/2017 On Those Days That You Engage In Moderate To Strenuous Exercise, How Many Minutes, On Average, Do You Exercise? 0 Information not available 05/29/2017 Swimming/diving Yes [email or web address] Informati on not available 08/24/2016 How Hard Is It For You To Pay For The Very Basics Like Food, Housing, Medical Care, And Heating? Not Very Hard Information not available 03/13/2023 Hard Of Hearing Or Deaf In One Or Both Ears? No Information not available 08/24/2016 Legally Blind In One Or Both Eyes? No [email or web address] Information no t available 08/24/2016 Live Alone Or With Others? With Others [email or web address] Information not available 08/24/2016 What Was The Date Of Your Most Recent Tobacco Screening? 01/13/2025 Information not available 01/13/2025 Do You Use Protection During Sex? Always [email or web address] Information not available 08/24/2016 What Is Your Relationship Status? Information not available 08/24/2016 Seat Belts Used Routinely Yes [email or web address] Information not available 08/24/2016 Are You Sexually Active? Yes Information not available 08/24/2016 Smoke Alarm In Home Yes [email or web address] Information not available 08/24/2016 Are You Passively Exposed To Smoke? No [email or web address] Information no t available 08/24/2016 How Much Tobacco Do You Smoke? No Information not available 06/10/2019 General Stress Level Low Information not available 08/24/2016 Do You Use Sunscreen Routinely? Yes [email or web address] Information not available 08/24/2016 Has Tobacco Cessation Counseling Been Provided? No Information not available 01/13/2025 On What Date Was Tobacco Cessation Counseling Provided? 09/05/2024 Information not available 09/05/2024 Do You Have Difficulty Walking Or Climbing Stairs? Yes Information not available 03/20/2017 Sex: Male Functional Status Question Answer Note LastModified by Organizat ion Details LastModified Time What is your level of alcohol consumption? None Information not available 08/24/2016 Do you or have you ever used smokeless tobacco? Currently chews tobacco 1 PPD Information not available 01/08/2020 Are you currently employed? Yes [email or web address] Information not available 08/24/2016 Are you able to walk independently without assistance or assistive devices? YESWOREST [email or web address] Information not available 08/24/2016 Do you have difficulty doing errands alone? No Information not available 03/20/2017 Are you able to care for yourself independently? Yes Information not available 08/24/2016 Do you have difficulty dressing, bathing, grooming, or toileting? No Information not available 03/20/2017 Do you or have you ever used e-cigarettes or vape? Never used electronic cigarettes Information not available 06/10/2019 What is your exercise level? Occasional [email or web address] Information not available 08/24/2016 Mental Status Question Answer Note LastModified by Organizat ion Details LastModified Time Do you feel stressed (tense, restless, nervous, or anxious, or unable to sleep at night)? [id number] Information not available 05/29/2017 Do you have difficulty concentrating, remembering or making decisions? No Information no t available 03/20/2017 Family History Relationship Description Onset Age of this Age Resolved Age Notes LastModified by Organization Details LastModified Time Mother Heart murmur [email or web address] Not avail able 01/09/2017 13:55:08 Mother Disorder of macula of retina [email or web address] Not available 2016 13:55:44 Medical History Condition Response Diabetes Y Myocardial Infarction Y Hyperlipidemia Y Immunizations Vaccine Type Date Status Note Provider Name and Address Organization Details Recorded Time pneumococcal polysaccharide PPV23 020 cancelled patient objection Eric Maria MD [address], [place], [address], [place] [facility] 11/25/2019 15:09:36 Tdap 020 cancelled patient objection Eric Maria MD [address], [place], [address], [place] [facility] 11/25/2019 15:09:36 Influenza, split virus, quadrivalent, preservative cancelled patient objection Eric Maria MD [address], [place], [address], [place] [facility] 01/08/2020 12:10:22 pneumococcal polysaccharide PPV23 cancelled patient objection Eric Maria MD [address], [place], [address], [place] [facility] 10/14/2020 10:07:15 Tdap 021 cancelled patient objection Eric Maria MD [address], [place], [address], [place] [facility] 10/14/2020 10:07:15 Pneumococcal conjugate PCV 13 cancelled patient objection Eric Maria MD [address], [place], [address], [place] [facility] 02/18/2021 22:29:20 Tdap 021 cancelled patient objection Eric Maria MD [address], [place], [address], [place] [facility] 02/18/2021 22:29:20 Influenza, high-dose, quadrivalent, PF 021 cancelled patient objection Eric Maria MD [address], [place], [address], [place] [facility] 02/18/2021 22:29:20 pneumococcal polysaccharide PPV23 cancelled patient objection Eric Maria MD [address], [place], [address], [place] [facility] 08/09/2021 00:50:08 Tdap 022 cancelled patient objection Eric Maria MD [address], [place], [address], [place] [facility] 02/10/2022 14:40:51 Influenza, high-dose, quadrivalent, PF cancelled patient objection Eric Maria MD [address], [place], [address], [place] [facility] 02/10/2022 14:40:51 Pneumococcal conjugate PCV20, polysaccharide LOU178 conjugate, adjuvant, PF 022 cancelled patient objection Eric Maria MD [address], [place], [address], [place] [facility] 02/10/2022 14:40:51 zoster recombinant 022 cancelled patient objection Eric Maria MD [address], [place], [address], [place] [facility] 02/10/2022 14:40:51 Influenza, split virus, quadrivalent, preservative 018 cancelled patient objection Not Available [facility] 03/23/2019 03:54:49 Pneumococcal conjugate PCV 13 018 cancelled patient objection Not Available [facility] 03/23/2019 03:54:49 Tdap 018 cancelled patient objection Not Available [facility] 03/23/2019 03:54:53 Pneumococcal conjugate PCV 13 018 cancelled patient objection Not Available [facility] 03/23/2019 03:54:54 Tdap 018 cancelled patient objection Not Available [facility] 03/23/2019 03:54:55 Influenza, split virus, quadrivalent, preservative 018 cancelled patient objection Not Available [facility] 03/23/2019 03:54:54 Influenza, high-dose, quadrivalent, PF 023 cancelled patient objection Eric Maria MD [address], [place], [address], [place] [facility] 12/29/2022 23:00:07 Influenza, high-dose, quadrivalent, PF 024 cancelled patient objection Eric Maria MD [address], [place], [address], [place] [facility] 04/09/2023 21:09:03 Pneumococcal conjugate PCV20, polysaccharide [id number] conjugate, adjuvant, PF 024 cancelled patient objection Eric Maria MD [address], [place], [address], [place] [facility] 04/09/2023 21:09:03 zoster recombinant 024 cancelled patient objection Eric Maria MD [address], [place], [address], [place] [facility] 04/09/2023 21:09:03 Influenza, high-dose, trivalent, PF cancelled patient objection Eric Maria MD [address], [place], [address], [place] [facility] 01/05/2024 10:43:43 Pneumococcal conjugate PCV20, polysaccharide [id number] conjugate, adjuvant, PF cancelled patient objection Eric Maria MD [address], [place], [address], [place] [facility] 01/05/2024 10:43:43 zoster recombinant 024 cancelled patient objection Eric Maria MD [address], [place], [address], [place] - [facility] 01/05/2024 10:43:43 Past Encounters Encounter ID Performer Location Encounter Start Date Encounter Closed Date Diagnosis/Indication Diagnosis SNOMED-CT Code Diagnosis ICD10 Code Diagnosis IMO Codes Diagnosis Note [id number] [facility] [address] [place] [address] 01/13/2025 10:47:54 01/13/2025 11:28:27 Acute low back pain 101298248 M54.50 [id number] sustained after a ground level fall.Will get imaging. Will call with results.Spence ve given lidocaine patches to use 12 hours on 12 hours off. Health Concerns Section Related Observation LastModified by Organization Detai ls LastModified Time None Recorded Concern Status LastModified by Organization Details LastModified Time None Recorded Payers Encounter Date Sequence Insurance Name Policy Number Policy Aldrich Covered Member ID Aldrich Member ID Guarantor Name 01/13/2025 2 MEDICAID-[facility] - FFS/TRADITIONA L Gerry Pollock [id number] Gerry Pollock 01/13/2025 1 BCBS-MD: DEYA LOWE OF [facility] MEDIBLUE PLUS (MEDICARE REPLACEMENT HMO) [id number] Gerry Pollock [id number] Gerry Pollock Notes Date Note Type Note Provider Name and Address Organization Details Recorded Time 01/13/2025 text/html ROS as noted in the HPI Patient had a fall 5 days with and now has low back pain and bilateral leg pain (has had lower leg pain for a while). Feels more discomfort in his ankles than he did before. Was using his walker and tried to turn and sustained a fall. Hurts in lower back and discomfort was immediate. reports that it seems to have worsened. Has been using Tylenol and using heating pad.Is now harder for him to swing his legs over getting into bed. Maricarmen Diaz, MANAGER MANUFACTURING [address], [place], [address], [facility] - [facility] 01/13/2025 11:23:18
--- OUTSIDE RECORDS SUMMARY | 2025-02-25 07:51 | XMS_ITS | Encounter Summary ---
Author Organization [employer] ([place], [place], [place], [place], [place]) Address [address] [place] [address] Care Team Providers Care Quality Control Systems Manager Name Role Phone Unavailable Primary Care Provider Unavailabl e Encounter Details Date Type Department Care Team (Late st Contact Info) Description 01/10/2019 Transcribed Document [facility] [place] Family Medicine [address] [place] [address] ProviderJose MD [address] [place], [place] [address] Social History Tobacco Use Types Packs/Day Years Used Date Smoking Tobacco: Never Assessed Sex and Gender Information Value Date Recorded Sex Assigned at Not on file Legal Sex Male 2:31 PM CDT Gender Identity Not on file Sexual Orientation Not on file documented as of this encounter Miscellaneous Notes * Cerner Conversion Note - Historical ProviderMD - 01/10/2019 9:24 AM DEPARTMENT CHAIR Therapy Screen, OT Entered On: 01/10/2019 11:16 [...]
--- OUTSIDE RECORDS SUMMARY | 2025-02-25 07:51 | XMS_ITS | Clinical Summary ---
Author Organization [employer] ([place], [place], [place], [place], [place]) Address [address] [place] [address] Care Team Providers Care Information Technology Security Manager Name Role Phone Unavailable Primary Care [...]
--- OUTSIDE RECORDS SUMMARY | 2025-02-25 07:51 | XMS_ITS | Encounter Summary ---
Author Organization [employer] ([place], [place], [place], [place], [place]) Address [address] [place] [address] Care Team Providers Care Front Services Agent Name Role Phone Unavailable Primary Care Provider Unavailabl e Encounter Details Date Type Department Care Team (Late st Contact Info) Description 01/09/2019 Transcribed Document [facility] [place] [facility] [place] [address] ProviderJose MD [address] [place], [place] [address] Social History Tobacco Use Types Packs/Day Years Used Date Smoking Tobacco: Never Assessed Sex and Gender Information Value Date Recorded Sex Assigned at Not on file Legal Sex Male 2:31 PM CDT Gender Identity Not on file Sexual Orientation Not on file documented as of this encounter Miscellaneous Notes * Cerner Conversion Note - Jose Stokes MD - 01/09/2019 4:30 PM FIRE SUPPRESSION CAPTAIN Patient: KINGSTON POLLOCK Age: 68 years Sex: [...] CVA - Cerebrovascular accident / SNOMED CT 142295669 / Confirmed Diabetes mellitus / SNOMED CT 041386526 / Confirmed Hyperlipidemia / SNOMED CT 10698193 / Confirmed Hypertension / SNOMED CT 55606388 / Confirmed, Active Problems (4) CVA - Cerebrovascular accident Diabetes mellitus Hyperlipidemia Hypertension Histories Past Medical History: No active or resolved past medical history items have been selected or recorded., As noted above Coronary artery disease never had a stent. Family History: No family history items have been selected or recorded., Patient does not know his family history Procedure history: Pacemaker ([id number]). Social History Social & Psychosocial Habits Alcohol [...] of motion, Normal strength. Integumentary: Warm, Dry, [place]. Neurologic: Alert, Oriented. Cognition and Speech: Oriented, [...]
--- OUTSIDE RECORDS SUMMARY | 2025-02-25 07:51 | XMS_ITS | Encounter Summary ---
Author Organization [employer] ([place], [place], [place], [place], [place]) Address [address] [place] [address] Care Team Providers Care Steel Unloader Name Role Phone Unavailable Primary Care Provider Unavailabl e Encounter Details Date Type Department Care Team (Late st Contact Info) Description 01/14/2019 Transcribed Document [facility] [place] [address] [place] [address] ProviderJose MD [address] [place] [address] Social History Tobacco Use Types Packs/Day Years Used Date Smoking Tobacco: Never Assessed Sex and Gender Information Value Date Recorded Sex Assigned at Not on file Legal Sex Male 2:31 PM CDT Gender Identity Not on file Sexual Orientation Not on file documented as of this encounter Miscellaneous Notes * Cerner Conversion Note - oJse ProviderMD - 01/14/2019 2:16 PM MANAGER ACQUISITION Authorization Entered On: 01/14/2019 14:17 EST Performed On: 01/14/2019 14:16 EST by COLBY FABIAN RN-Utilization Review Primary Insurance Authorization Authorization and Policy Numbers : Insurance 1 Health Plan: R Policy Number: [id number] Authorization Number: Insurance 2 Health Plan: MEDICARE Policy Number: [id number] Authorization Number: Insurance Primary Name : [facility] [id number] Authorization Status-Primary : Pending clinicals Authorization Fax Number-Primary : [phone] Auth/Referral Phone Number-Primary : [phone] Auth/Referral Contact Name-Primary : Loren Reference Number-Primary : [id number] Authorization Number-Primary : [id number] Number of Days Authorized-Primary : 2 Day(s) Authorized Service Begin Date-Primary : 01/09/2019 EST Authorized Service End Date-Primary : 01/11/2019 EST Authorization Comments-Primary : Approved per loren Historical Authorization Comments-Primary : Comment 1: Clinicals faxed via [employer] to [phone] (KATHARINE MOREAU, Rn-Utilization Review 01/11/2019 11:00) Comment 2: rec'd call from Loren requesting clinicals be faxed to her [phone] fax [phone] (COLBY FABIAN RN-Utilization Review 01/11/2019 10:04) Comment 3: Auth initiated on [facility] portal. Awaiting call for clinicals. (KATHARINE MOREAU, Rn-Utilization Review 01/10/2019 10:02) COLBY FABIAN RN-Utilization Review - 01/14/2019 14:16 EST documented in this encounter Plan of Treatment Not on file documented as of this encounter Visit Diagnoses Not on filedocumented in this encounter
--- OUTSIDE RECORDS SUMMARY | 2025-02-25 07:51 | XMS_ITS | Encounter Summary ---
Author Organization [employer] ([place], [place], [place], [place], [place]) Address [address] [place] [address] Care Team Providers Care Dance Critic Name Role Phone Unavailable Primary Care Provider Unavailabl e Encounter Details Date Type Department Care Team (Late st Contact Info) Description 01/11/2019 Transcribed Document [facility] [place] [address] ProviderJose MD [address] [id number] Social History Tobacco Use Types Packs/Day Years Used Date Smoking Tobacco: Never Assessed Sex and Gender Information Value Date Recorded Sex Assigned at Not on file Legal Sex Male 2:31 PM CDT Gender Identity Not on file Sexual Orientation Not on file documented as of this encounter Miscellaneous Notes * Cerner Conversion Note - Historical ProviderMD - 01/11/2019 11:48 AM TIN CUTTER Patient: KINGSTON POLLOCK Age: 68 years Sex: [...] Pain (Mild 1-3) Xarelto: 20 mg, Oral, [id number] Zofran: 4 mg, IV Push, Q6H, PRN: [...] mg tab 20 mg 1 Tab, Oral, [id number] valsartan 40 mg tab 40 mg 1 [...] At risk for sleep apnea / IMO 01635973 / Confirmed Atrial fibrillation / SNOMED CT 74970795 / Confirmed Pacemaker / SNOMED CT 0918103168 / Confirmed CAD (coronary artery disease) / SNOMED CT 80862866 / Confirmed CVA - Cerebrovascular accident / SNOMED CT 540896482 / Confirmed Diabetes mellitus / SNOMED CT 407509733 / Confirmed Hyperlipidemia / SNOMED CT 07500333 / Confirmed Hyperlipidemia / SNOMED CT 92207570 / Confirmed Hypertension / SNOMED CT 35568765 / Confirmed Prostate CA / SNOMED CT 7070762474 / Confirmed, Active Problems (10) At risk [...] EST Height Source Stated Height Entry Format [place] Height/Length, ANDORRAN (ft) 5 ft Height/Length ANDORRAN 9 Inch CLINICALHEIGHT 175.26 cm Routine Weight Source Standing scale Routine Weight Entry Format [place] Routine Weight, Pounds 162 lb Routine Weight, Ounces 7 oz Routine Weight Calculation 73.84 kg Body Mass Index (BMI), Routine 24.04 kg/m2 Body Surface Area (BSA), Routine 1.89 m2 01/10/2019 5:00 EST Height Source Stated Height Entry Format [place] Height/Length, ANDORRAN (ft) 5 ft Height/Length ANDORRAN 9 Inch CLINICALHEIGHT 175.26 cm Routine Weight Source Standing scale Routine Weight Entry Format [place] Routine Weight, Pounds 165 lb Routine Weight, [...] L 43 (JAN 11:00) L 43 (JAN 11:00) H 108 (JAN 10:15) MAP 61 (JAN 11 10:00) 61 (JAN 11 10:00) 124 (JAN 10 16:15) SpO2 100 (JAN 11:00) L 89 (JAN 10 15:50) 100 (JAN 10:00) General: Alert and oriented. Neck: No carotid bruit, No jugular venous distention. Respiratory: Lungs are clear to auscultation, Respirations are non-labored, Breath sounds are equal, Symmetrical chest wall expansion. Cardiovascular: No murmur, No gallop, Good pulses equal in all extremities, Normal peripheral perfusion, No edema, asensed vpaced rhythm . Gastrointestinal: Normal bowel sounds. Integumentary: Warm, Dry, [place]. Results Review General results Today's results 01/11/2019 [...] vest 48 minutes spent on this discharge Electronically signed by Az, Shay Conversion Learning And Development Administrator Cerner at 06/23/2022 12:05 PM CDT documented in this encounter Plan of Treatment Not on file documented as of this encounter Visit Diagnoses Not on filedocumented in this encounter
--- OUTSIDE RECORDS SUMMARY | 2025-02-25 07:51 | XMS_ITS | Encounter Summary ---
Author Organization [facility] Address [address] [place] [address] Care Team Providers Care Diesel Engine Ii Pipe Fitter Name Role Phone Eric Maria MD Primary Care Provider Encounter Details Date Type Department Care Team (Late st Contact Info) Description 05/25/2024 Orders Only External Location [address] [place] [address] Vicky Sapp MD [address] [place] [address] Social History Tobacco Use Types Packs/Day Years [...] Visit [place] [facility] [address], [address] [place] [address] Chu Null MD [address] [place] [address] 09/11/2025 10:00 AM EDT Ancillary Procedure [place] [facility] [address] [place] [address] documented as of this encounter [...] documented as of this encounter Care Teams Diesel Engine Ii Pipe Fitter Relationship Specialty Start Date End Date Eric Maria MD [address] [place] [address] PCP - General 11/04/20 documented as of this encounter
--- OUTSIDE RECORDS SUMMARY | 2025-02-25 07:51 | XMS_ITS | Encounter Summary ---
Author Organization [employer] ([place], [place], [place], [place], [place]) Address [address] [place] [address] Care Team Providers Care Health Services Manager Name Role Phone Unavailable Primary Care Provider Unavailabl e Encounter Details Date Type Department Care Team (Late st Contact Info) Description 01/11/2019 Transcribed Document [facility] [place] Family Medicine [address] [place] [address] ProviderJose MD [address] [place] [place], [place] [address] Social History Tobacco Use Types Packs/Day Years Used Date Smoking Tobacco: Never Assessed Sex and Gender Information Value Date Recorded Sex Assigned at Not on file Legal Sex Male 2:31 PM CDT Gender Identity Not on file Sexual Orientation Not on file documented as of this encounter Miscellaneous Notes * Cerner Conversion Note - Historical ProviderMD - 01/11/2019 5:00 AM RECYCLER Chart Check - Review Order Profile Entered On: 01/11/2019 5:12 EST Performed On: 01/11/2019 5:00 EST by Rowan Salcedo RN Chart Check Powerplans Initiated/Discontinued as Appropriate : Yes All Active Orders Reviewed : Yes Rowan Salcedo RN - 01/11/2019 5:12 EST Electronically signed by Az [facility] Conversion Signal Tester Cerner at 06/23/2022 12:05 PM CDT documented in this encounter Plan of Treatment Not on file documented as of this encounter Visit Diagnoses Not on filedocumented in this encounter
--- OUTSIDE RECORDS SUMMARY | 2025-02-25 07:51 | XMS_ITS | Encounter Summary ---
Author Organization [employer] ([place], [place], [place], [place], [place]) Address [address] [place] [address] Care Team Providers Care Mid Level Developer Name Role Phone Unavailable Primary Care Provider Unavailabl e Encounter Details Date Type Department Care Team (Late st Contact Info) Description 01/11/2019 Transcribed Document [facility] [place] [address] [place] [address] ProviderJose MD [address] [id number] Social History Tobacco Use Types Packs/Day Years Used Date Smoking Tobacco: Never Assessed Sex and Gender Information Value Date Recorded Sex Assigned at Not on file Legal Sex Male 2:31 PM CDT Gender Identity Not on file Sexual Orientation Not on file documented as of this encounter Miscellaneous Notes * Cerner Conversion Note - Jose ProviderMD - 01/11/2019 10:04 AM ART EDUCATOR UM Authorization Entered On: 01/11/2019 10:05 EST Performed On: 01/11/2019 10:04 EST by COLBY FABIAN RN-Utilization Review Primary Insurance Authorization Authorization and Policy Numbers : Insurance 1 Health Plan: R Policy Number: [id number] Authorization Number: Insurance 2 Health Plan: MEDICARE Policy Number: [id number] Authorization Number: Insurance Primary Name : [facility] [id number] Authorization Status-Primary : Pending clinicals Authorization Fax Number-Primary : [phone] Auth/Referral Phone Number-Primary : [phone] Auth/Referral Contact Name-Primary : Loren Reference Number-Primary : [id number] Authorized Service Begin Date-Primary : 01/11/2019 EST Authorization Comments-Primary : rec'd call from Loren requesting clinicals be faxed to her [phone] fax [phone] Historical Authorization Comments-Primary : Comment 1: Auth initiated on [facility] portal. Awaiting call for clinicals. (KATHARINE MOREAU Rn-Utilization Review 01/10/2019 10:02) COLBY FABIAN RN-Utilization Review - 01/11/2019 10:04 EST documented in this encounter Plan of Treatment Not on file documented as of this encounter Visit Diagnoses Not on filedocumented in this encounter
--- OUTSIDE RECORDS SUMMARY | 2025-02-25 07:51 | XMS_ITS | Encounter Summary ---
Author Organization [employer] ([place], [place], [place], [place], [place]) Address [address] [place] [address] Care Team Providers Care Breaker Engineer Name Role Phone Unavailable Primary Care Provider Unavailabl e Encounter Details Date Type Department Care Team (Late st Contact Info) Description 01/11/[address] 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 [place] [id number] [place]ST[place] POLLOCK :1950 Visit Time:01/09/2019 Your Visit [...] need ot follow up with pcp in [facility] for prostate canacer gulshan When Within 2 to 3 days Follow Up with GERARDO RICHARDSON When Within 2 weeks Comments Office to call with appoint/instructions cbc check for blood counts in 2 weeks Where: [facility] [address] [place] [phone] Business (1) Medications What How Much When Instructions Next Dose carvedilol (Coreg 3.125 mg oral tablet) 1 Tablet(s) Oral Two Times A Day [facility] clopidogrel (clopidogrel 75 mg oral tablet) 1 Tablet(s) Oral Every Day [facility] nitroglycerin (Nitrostat 0.4 mg sublingual tablet) 1 Tablet(s) SubLINgual Every 5 minutes as needed for as needed for chest pain [facility] rivaroxaban (Xarelto 20 mg oral tablet) 1 Tablet(s) Oral Interval Every 24 Hours valsartan (Diovan 40 mg oral tablet) 1 Tablet(s) Oral Every Day [facility] PRAVAstatin (Pravachol 80 mg oral tablet) 1 Tablet(s) Oral Every Day [facility] aspirin (aspirin 81 mg oral tablet) 1 Tablet(s) Oral Every Day [facility] glipiZIDE (glipiZIDE 10 mg oral tablet, extended release) 1 Tablet(s) Oral Twice a Day Before Meals insulin detemir (Levemir FlexPen 100 units/ mL subcutaneous solution) 30 Unit(s) SubCutaneous At Bedtime metformin (metformin 1000 mg oral tablet) 1 Tablet(s) Oral Two Times A Day hold until friday 01/12 Pharmacy Information [facility]: [address] [place], [place] [id number] [phone] Take your medications faithfully. Do NOT skip [...] foods can I eat? Grains Breads, including Amharic, white, chencho, wheat, raisin, rye, oatmeal, and Thai. Tortillas that are neither fried nor made with lard or trans fat. Low-fat rolls, including hotdog and hamburger buns and Azeri muffins. Biscuits. Muffins. Waffles. Pancakes. Light popcorn. [...] cooking, baking, salads, and as spreads. Other [place] powder. Coffee and tea. All seasonings and [...] cottage cheese. Whole-milk cheeses, including blue (bettye), Motley Rajendra, Brie, Antelmo, Tuvaluan, Havarti, Ethiopian, cheddar, Camembert, and Talbott. Whole or 2% milk that is liquid, [...] that has suet, meat fat, or shortening. [place] butter, hydrogenated oils, palm oil, coconut oil, [...] 08/21/2012 Document Revised: 07/28/2016 Document Reviewed: 08/14/2014 [employer] Patient Education ?? 2019 [employer] Radial Site Care Refer to this [...] 03/25/2011 Document Revised: 07/28/2016 Document Reviewed: 09/08/2014 [employer] Patient Education ?? 2019 [employer] Coronary Angiogram With Stent, Care After [...] and water are not available, use hand lingo cleaner. ? Change your dressing as told by [...] such as diabetes. General instructions ??? Take djtk-aki-vnpnkfw and prescription medicines only as told by [...] 09/09/2005 Document Revised: 11/17/2016 Document Reviewed: 11/17/2016 [employer] Patient Education ?? 2019 [employer] Non-ST Segment Elevation Heart Attack A [...] 09/19/2005 Document Revised: 05/14/2012 Document Reviewed: 01/28/2015 [employer] Patient Education ?? 2017 [employer]. pravastatin (PRAV a STAT in) Pravachol What [...] may report side effects to FDA at 3-160-XBC-6069. What other drugs will affect pravastatin? Using [...] may interact with pravastatin, including prescription and csii-kky-tcnmdvo medicines, vitamins, and herbal products. Not all [...] to ensure that the information provided by [employer]. ('[employer]') is accurate, up-to-date, and complete, but no guarantee is made to that effect. Drug information contained herein may be time sensitive. [employer] information has been compiled for use by healthcare practitioners and consumers in the [place] and therefore [employer] does not warrant that uses outside of the [place] are appropriate, unless specifically indicated otherwise. [employer] drug information does not endorse drugs, diagnose patients or recommend therapy. [employer] drug information is an informational resource designed [...] effective or appropriate for any given patient. [employer] does not assume any responsibility for any aspect of healthcare administered with the aid of information [employer] provides. The information contained herein is not intended to cover all possible uses, directions, precautions, warnings, drug interactions, allergic reactions, or adverse effects. If you have questions about the drugs you are taking, check with your doctor, nurse or pharmacist. Copyright 0990-8500 [employer]. Version: 13.01. Revision Date: 10/21/2015. valsartan (hernan [...] disease; ?? if you are on a blg-ecxz-kwak; or ?? if you have ever had [...] may report side effects to FDA at 1-634-EHX-2283. What other drugs will affect valsartan? Tell [...] drugs may affect valsartan, including prescription and clye-plv-knwcxzt medicines, vitamins, and herbal products. Not all [...] to ensure that the information provided by [employer]. ('[employer]') is accurate, up-to-date, and complete, but no guarantee is made to that effect. Drug information contained herein may be time sensitive. [employer] information has been compiled for use by healthcare practitioners and consumers in the [place] and therefore [employer] does not warrant that uses outside of the [place] are appropriate, unless specifically indicated otherwise. [employer] drug information does not endorse drugs, diagnose patients or recommend therapy. [employer] drug information is an informational resource designed [...] effective or appropriate for any given patient. [employer] does not assume any responsibility for any aspect of healthcare administered with the aid of information [facility] provides. The information contained herein is not intended to cover all possible uses, directions, precautions, warnings, drug interactions, allergic reactions, or adverse effects. If you have questions about the drugs you are taking, check with your doctor, nurse or pharmacist. Copyright 1092-2558 [employer]. Version: 17.02. Revision Date: 05/31/2018. aspirin (oral) [...] What is aspirin? Aspirin is a salicylate (jl-BGX-gs-ate). It works by reducing substances in the [...] may report side effects to FDA at 7-245-KBA-2256. What other drugs will affect aspirin? Ask [...] drugs may affect aspirin, including prescription and wqxz-kdp-lvwkdjb medicines, vitamins, and herbal products. Not all [...] to ensure that the information provided by [employer]. ('[employer]') is accurate, up-to-date, and complete, but no guarantee is made to that effect. Drug information contained herein may be time sensitive. [employer] information has been compiled for use by healthcare practitioners and consumers in the [place] and therefore [employer] does not warrant that uses outside of the [place] are appropriate, unless specifically indicated otherwise. [employer] drug information does not endorse drugs, diagnose patients or recommend therapy. [employer] drug information is an informational resource designed [...] effective or appropriate for any given patient. [facility] does not assume any responsibility for any aspect of healthcare administered with the aid of information [facility] provides. The information contained herein is not intended to cover all possible uses, directions, precautions, warnings, drug interactions, allergic reactions, or adverse effects. If you have questions about the drugs you are taking, check with your doctor, nurse or pharmacist. Copyright 1632-6873 [employer]. Version: 15.. Revision Date: 06/05/2017. clopidogrel (kloe [...] may report side effects to FDA at 2-088-UTB-7212. What other drugs will affect clopidogrel? Certain other medicines may increase your risk of bleeding, including aspirin. Avoid taking aspirin unless your doctor tells you to. Tell your doctor about all your other medicines, especially: ?? any other medicines to treat or prevent blood clots; ?? a stomach acid manager of construction such as omeprazole, Nexium, or Prilosec; ?? an antidepressant; ?? an opioid medication; ?? a blood thinner--warfarin, Coumadin, Jantoven; or ?? NSAIDs (nonsteroidal anti-inflammatory drugs)--ibuprofen (Advil, Motrin), naproxen (Aleve), celecoxib, diclofenac, indomethacin, meloxicam, and others. This list is not complete. Other drugs may affect clopidogrel, including prescription and wzqg-asg-jhwvlhq medicines, vitamins, and herbal products. Not all [...] to ensure that the information provided by [employer]. ('[employer]') is accurate, up-to-date, and complete, but no guarantee is made to that effect. Drug information contained herein may be time sensitive. [employer] information has been compiled for use by healthcare practitioners and consumers in the [place] and therefore [employer] does not warrant that uses outside of the [place] are appropriate, unless specifically indicated otherwise. [employer] drug information does not endorse drugs, diagnose patients or recommend therapy. [employer] drug information is an informational resource designed [...] effective or appropriate for any given patient. [facility] does not assume any responsibility for any aspect of healthcare administered with the aid of information [facility] provides. The information contained herein is not intended to cover all possible uses, directions, precautions, warnings, drug interactions, allergic reactions, or adverse effects. If you have questions about the drugs you are taking, check with your doctor, nurse or pharmacist. Copyright 2248-3144 [employer]. Version: 15.. Revision Date: 12/25/2017. carvedilol (HEIDY ve dil ole) Coreg, Zachary YAP What is the most important information I [...] may report side effects to FDA at 9-581-SMU-8509. What other drugs will affect carvedilol? Sometimes it is not safe to use certain medications at the same time. Some drugs can affect your blood levels of other drugs you take, which may increase side effects or make the medications less effective. Other drugs may affect carvedilol, including prescription and juat-jxp-dvxsvjs medicines, vitamins, and herbal products. Tell your [...]
--- OUTSIDE RECORDS SUMMARY | 2025-02-25 07:51 | XMS_ITS | Encounter Summary ---
Author Organization [facility] Address [address] [place] [address] Care Team Providers Care Automobile Mechanic Helper Name Role Phone Eric Maria MD Primary Care Provider Encounter Details Date Type Department Care Team ([facility] st Contact Info) Description 06/24/2024 Lab Requisition [facility] [address] [place] [address] Mirza Reyna MD [address] [facility] [address] [place] [id number] Encounter for general adult medical examination without [...] and Family Not on file 06/24/2024 Attends [employer] Not on file 06/24 Active Member [...] th e electric, gas, oil, or water [employer] threatened to shut off services in your home? No 06/24/2024 Sex and Gender Information Value Date Recorded Sex Assigned at Male 12/02/2022 10:35 AM EDT Legal Sex Male 7:31 PM EDT Gender Identity Male 12/02/2022 10:35 AM EDT Sexual Orientation Straight 12/02/2022 10 :35 AM EDT documented as of this encounter Functional Status * Question Answer Date of Assessment Author Precautions Environmental surveillance 06/27/2024 8:0 0 PM EDT Marilou Jasso RN * Over the past 2 weeks, how [...] so slowly that other people could have noticed. Or the opposite - being so fidgety or restless that you have been moving around a lot more than usual Not at all 06/24/2024 4:03 PM Maricarmen Baugh RN Thoughts that you would be better off or hurting yourself in some way Not at all 06/24/2024 4:03 PM EDT Maricarmen Haynes RN Patient Health Questionnaire-9 Score 3 06/24/2024 4:03 PM EDT Maricarmen Haynes RN * Calculated C-SSRS Risk Score (Lifetime/Recent) Answer [...] at all 06/24/2024 4:03 PM EDT Maricarmen Haynes RN * Question Answer Date of Assessment Author 1. Wish to be (Past 1 Month) No 025 8:00 PM EDT Erika Neves 2. Non-Specific Active Suici reese Thoughts (Past 1 Month) No 06/25/2024 8:00 PM EDT Evelia Neves 6. Suicidal Behavior (Lifetime) No 8:00 PM EDT Erika Neves documented as of this encounter Mental Status * Question Answer Entry Date Author Precautions Environmental surveillance 06/27/2024 8:0 0 PM EDT Marilou Jasso RN documented in this encounter Plan of Treatment Upcoming Encounters Date Type Department Care Team (Late st Contact Info) Description 02/28/2025 9:00 AM EST Office Visit [facility] [address] [facility] 1st [place] [address] Chu Null MD [facility] [address] [place] [address] 09/11/2025 10:00 AM EDT Ancillary Procedure [facility] Medicine Specialties [address] [place] [address] documented as of this encounter Procedures Procedure Name Priority Date/Time Associated Diagnosis Comments MULTI DRUG RESISTANCE TEST Routine 06/24/2024 12:00 PM EDT Encounter for general adult medical examination without abnormal findings documented in this encounter Results * Multi Drug Resistance Test (06/24/2024 12:00 PM EDT) Culture No Multi Drug Resistant Organisms Isolated 06/25/2024 1:21 PM EDT [facility] Swab (Nares and Dhara Rectal) 06/24/2024 12:00 PM EDT 06/24/2024 2:24 PM EDT us Mirza Reyna MD LAB MICROBIOLOGY - GEN ERAL ORDERABLES Final Result [facility] [address] [place] [address] documented in this encounter Visit Diagnoses Diagnosis [...] documented as of this encounter Care Teams Automobile Mechanic Helper Relationship Specialty Start Date End Date Eric Maria MD [address] [place] [address] PCP - General 11/04/20 documented as of this encounter
--- OUTSIDE RECORDS SUMMARY | 2025-02-25 07:51 | XMS_ITS | Encounter Summary ---
Author Organization [employer] ([place], [place], [place], [place], [place]) Address [address] [place] [address] Care Team Providers Care Wire Harness Assembler Name Role Phone Unavailable Primary Care Provider Unavailabl e Encounter Details Date Type Department Care Team (Late st Contact Info) Description 01/11/2019 Transcribed Document [facility] Family Medicine [address] [place] [address] ProviderJose MD [address] [place] [address] Social History Tobacco Use Types Packs/Day Years Used Date Smoking Tobacco: Never Assessed Sex and Gender Information Value Date Recorded Sex Assigned at Not on file Legal Sex Male 2:31 PM CDT Gender Identity Not on file Sexual Orientation Not on file documented as of this encounter Miscellaneous Notes * Cerner Conversion Note - Jose ProviderMD - 01/11/2019 2:58 PM 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 Living Situation : Home Patient Lives With : Spouse Is the Patient a Caregiver at Home? 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 : Yes Medical Durable Power of Burrer Operator Name : No Legal Guardian : No ADELAIDE QUIROZ, RN-Inspector Technician - 01/11/2019 14:58 EST Initial Assessment II Sensory and Motor Deficits : None Current Home Treatments and Equipment : None ADELAIDE QUIROZ, RN-Inspector Technician - 01/11/2019 14:58 EST Discharge Needs I Anticipated Discharge Date : 01/11/2019 EST Anticipated Discharge To, CM : Home independently, Home with family care Current Home Treatment/Equipment : Current Home Treatment/Equipment No qualifying data available. Post Acute/Home Treatments : None Documentation Status Complete : Yes ADELAIDE QUIROZ, RN-Inspector Technician - 01/11/2019 14:58 EST Discharge Needs II Professional Skilled Services : Professional Skilled Services No qualifying data available. Needs Assistance with Transportation : No Discharge Options Discussed with Patient : Discharge transportation, DME ADELAIDE QUIROZ, RN-Inspector Technician - 01/11/2019 14:58 EST Narrative Note Narrative Note : Prior to admission patient was independent in all areas. Patient has a pacemaker in place managed by Marco A Gavin in [place]. Patient has had an emotional time this admission as prior to this the patient was seen at the ER at a local place, the hospital in [place] and now here. During this time his tearfully shared with CM it was reported to them by [place] that an oncology consult would be needed due to findings on the CT scans. Home plan. ADELAIDE QUIROZ, RN-Inspector Technician - 01/11/2019 14:58 EST Electronically signed by Shay Bernardo Conversion Retail Loss Prevention Specialist Steve at 06/23/2022 12:03 PM CDT documented in this encounter Plan of Treatment Not on file documented as of this encounter Visit Diagnoses Not on filedocumented in this encounter
--- OUTSIDE RECORDS SUMMARY | 2025-02-25 07:51 | XMS_ITS | Referral Summary ---
Author Organization [employer] ([place], [place], [place], [place], [place]) Address [address] [place] [address] Care Team Providers Care Day Care Teacher Name Role Phone Unavailable Primary Care [...]
--- OUTSIDE RECORDS SUMMARY | 2025-02-25 07:51 | XMS_ITS | Encounter Summary ---
Author Organization [employer] ([place], [place], [place], [place], [place]) Address [address] [place] [address] Care Team Providers Care Drop Forger Helper Name Role Phone Unavailable Primary Care Provider Unavailabl e Encounter Details Date Type Department Care Team (Late st Contact Info) Description 01/10/2019 Transcribed Document [facility] [place] [facility] [place] [address] ProviderJose MD [address] [id number] Social History Tobacco Use Types Packs/Day Years Used Date Smoking Tobacco: Never Assessed Sex and Gender Information Value Date Recorded Sex Assigned at Not on file Legal Sex Male 2:31 PM CDT Gender Identity Not on file Sexual Orientation Not on file documented as of this encounter Miscellaneous Notes * Cerner Conversion Note - Jose Stokes MD - 01/10/2019 4:12 PM 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
--- OUTSIDE RECORDS SUMMARY | 2025-02-25 07:51 | XMS_ITS | Clinical Summary ---
Author Organization [facility] Address [address] [place] [address] Care Team Providers Care Craft Center Director Name Role Phone Eric Maria MD [...] for fever (for temperature > 38.5). Under [place] law, monthly prescriptions (30 days) can be [...] sublingual tablet Place under the tongue. 07/11/19 25 Active mirtazapine (Remeron) 15 MG tablet TAKE ONE HALF (1/2) TABLET BY MOUTH AT BEDTIME 06/22/19 25 Active potassium chloride CR (K-Tab) 20 MEQ ER tablet Take 1 tablet every day by oral route for 14 days. 08/29/19 25 Active atorvastatin (Lipitor) 80 MG tablet Take 1 tablet by mouth nightly. 10/10/19 25 Active budesonide-form oterol (Symbicort) 160-4.5 MCG/ACT inhaler INHALE TWO (2) PUFFS TWICE A DAY BY INHALATION ROUTE. 10/19/19 25 Active sucralfate (Carafate) 1 GM/10ML suspension TAKE [...] by mouth 2 times a day. 10/19/19 25 Active carbidopa-levod opa (Sinemet) 25-100 MG tablet TAKE ONE (1) TABLET BY MOUTH THREE (3) TIMES DAILY 270 tablet 12/12/19 25 Active Active Problems Problem Noted Date Diagnosed Date Severe protein-calorie malnutrition 06/26/2024 GIB (gastrointestinal bleeding) 06/23/2024 Parkinson's disease without dyskinesia or fluctuating manifestations 11/03/2023 Resolved Problems Problem Noted Date Diagnosed Date Resolved Date Shock 06/27/2024 11/24/2024 Encounters Date Type Department Care Team Description 12/11/2024 Refill [place] [facility] [address] [place] [address] Chu Null MD from Last 3 Months Family History Medical [...] and Family Not on file 06/24/2024 Attends [employer] Not on file 06/24 Active Member [...] any time in the past 12 m [facility], were you homeless or living in a group home (including now)? No 06/24/2024 Utilities Answer [...] Visit [place] [facility] [address], [address] [place] [address] Chu Null MD [address] [place] [address] 09/11/2025 10:00 AM EDT Ancillary Procedure [facility] [address], [address] [place] [address] Health Maintenance Due Date Last Done Comments [facility]-Medicare Annual Wellness (AWV) 1950 [facility]-Infant/Child/Adol SDOH Screenings 1950 [id number] Vaccine (#1) 01/26/1951 Diabetes: Dental Exam 07/27/1959 [facility]-DTaP,Tdap,and Td Vaccine [...] [facility]-Hepatitis C Screening Completed 06/24/2024 HPV Vaccines (No Doses Required) Completed [facility]-HIB Vaccines Aged Out No longer e [...] Care Plan Autogenerated Problem No Antonia Johnson director retail brand development Procedure Name Priority Date/Time Associated Diagnosis Comments EGD Routine 07/08/2024 1:41 PM EDT Gastrointestinal hemorrhage, unspecified gastrointestinal hemorrhage type ACUTE HEPATITIS PANEL Routine 06/24/2024 12:17 AM EDT HEMOGLOBIN A1C Routine 06/24/2024 12:17 AM EDT from Last 3 Months or Most Recently Relevant to Health Maintenance Results * EGD ROSE SERRANO; 07/08/2024 (07/08/2024 1:41 [...] abdominal pain, fever, gastrointestinal bleeding and call learning solutions specialist GI if present. - Findings and recommendations were discussed with patient immediately following the procedure in PACU - Findings and recommendations to be conveyed to primary team. Indication Gastrointestinal hemorrhage, unspecified gastrointestinal hemorrhage type Medications See anesthesia record for anesthesia administered medications. Staff Staff Role Sofia Mcdowell, Yannick Chavez CRNA Endo 3D Designer Rose Serrano MD Proceduralist Deirdre Kwok RN [...] Antigen Negative Negative 06/24/2024 1:35 AM EDT [facility] Hepatitis C Antibody Negative Negative 06/24/2024 1:35 AM EDT [facility] Hepatitis A Antibody IgM Negative Negative 06/24/2024 1:35 AM EDT [facility] Hepatitis B Core Antibody IgM Negative Negative 06/24/2024 1:35 AM EDT [facility] Blood Venous blood specimen / Unknown Venipuncture / Unknown 06/24/2024 12:17 AM EDT 06/24/2024 12:31 AM EDT us Shemar K Melvi PA LAB BLOOD ORDERABLES Final R esult Performing Organization Address City/State/[facility] Co de Phone Number [facility] [address] [place] [address] * Hemoglobin A1c (06/24/2024 12:17 AM EDT) Hemoglobin A1c 5.3 <5.7 % 06/24/2024 7:20 AM EDT [facility] Blood Venous blood specimen / Unknown Venipuncture / Unknown 06/24/2024 12:17 AM EDT 06/24/2024 12:31 AM EDT Narrative [facility] - 06/24/2024 7:20 AM EDT HA1C Interpretive Data: Diagnosis of Diabetes: Diabetic > or = 6.5% Pre-diabetic 5.7 to 6.4% Non-diabetic < or = 5.6% Glycemic Targets for Type I and Type II Diabetics: Non- Adults <7.0% Adults <6.0% Children and Adolescents <7.5% Source: [place] [employer]. Standards of medical care in diabetes,2017. Diabetes Care.2017:40 (suppl 1):S1-S135. us Shemar K Melvi PA LAB BLOOD ORDERABLES Final R esult [facility] [address] [place] [address] from Last 3 Months or Most Recently [...] updated to appropriate status: Yes Care Teams Craft Center Director Relationship Specialty Start Date End Date Eric Maria MD [address] [place] [id number] PCP - General 11/04/20
--- OUTSIDE RECORDS SUMMARY | 2025-02-25 07:51 | XMS_ITS | Encounter Summary ---
Author Organization [employer] ([place], [place], [place], [place], [place]) Address [address] [place] [address] Care Team Providers Care Dermatology Sales Representative Name Role Phone Unavailable Primary Care Provider Unavailabl e Encounter Details Date Type Department Care Team (Late st Contact Info) Description 01/10/2019 Transcribed Document [facility] [place] Family Medicine [address] [place] [address] ProviderJose MD [address] [place] [address] Social History Tobacco Use Types Packs/Day Years Used Date Smoking Tobacco: Never Assessed Sex and Gender Information Value Date Recorded Sex Assigned at Not on file Legal Sex Male 2:31 PM CDT Gender Identity Not on file Sexual Orientation Not on file documented as of this encounter Miscellaneous Notes * [employer] Conversion Note - Historical ProviderMD - 01/10/2019 7:02 AM 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 Spoke to christine in the lab. Analy Mckeon RN - 01/10/2019 7:02 EST Electronically signed by [facility] Conversion Tape Edge Machine Operator Cerner at 06/23/2022 11:53 AM CDT documented in this encounter Plan of Treatment Not on file documented as of this encounter Visit Diagnoses Not on filedocumented in this encounter
--- OUTSIDE RECORDS SUMMARY | 2025-02-25 07:51 | XMS_ITS | Encounter Summary ---
Author Organization [employer] ([place], [place], [place], [place], [place]) Address [address] [place] [address] Care Team Providers Care Spray Gun Repairer Name Role Phone Unavailable Primary Care Provider Unavailabl e Encounter Details Date Type Department Care Team (Late st Contact Info) Description 01/09/2019 Transcribed Document [facility] [place] Family Medicine [address] [place] [address] ProviderJose MD [address], [place] [id number] Social History Tobacco Use Types Packs/Day Years Used Date Smoking Tobacco: Never Assessed Sex and Gender Information Value Date Recorded Sex Assigned at Not on file Legal Sex Male 2:31 PM CDT Gender Identity Not on file Sexual Orientation Not on file documented as of this encounter Miscellaneous Notes * [employer] Conversion Note - Historical ProviderMD - 01/09/2019 6:30 PM ASSIGNMENT AGENT Event Note Entered On: 01/09/2019 21:44 EST [...] - 01/09/2019 21:42 EST Electronically signed by [facility] Conversion Die Mounter Cerner at 06/23/2022 12:03 PM CDT documented in this encounter Plan of Treatment Not on file documented as of this encounter Visit Diagnoses Not on filedocumented in this encounter
--- OUTSIDE RECORDS SUMMARY | 2025-02-25 07:52 | XMS_ITS | Encounter Summary ---
Author Organization [employer] ([place], [place], [place], [place], [place]) Address [address] [place] [address] Care Team Providers Care New Home Sales Consultant Name Role Phone Unavailable Primary Care Provider Unavailabl e Encounter Details Date Type Department Care Team (Late st Contact Info) Description 01/10/2019 Transcribed Document [facility] [place] [address] [place] [address] ProviderJose MD [address] [place] [id number] Social History Tobacco Use Types Packs/Day Years Used Date Smoking Tobacco: Never Assessed Sex and Gender Information Value Date Recorded Sex Assigned at Not on file Legal Sex Male 2:31 PM CDT Gender Identity Not on file Sexual Orientation Not on file documented as of this encounter Miscellaneous Notes * [employer] Conversion Note - Historical ProviderMD - 01/10/2019 9:[address] [facility] Entered On: 01/10/2019 10:31 EST Performed On: 01/10/2019 9:24 EST by HECTOR GONZALEZ PT [facility] Physical Therapy Screen : 1 HECTOR GONZALEZ PT - 01/10/2019 10:24 EST documented in this encounter Plan of Treatment Not on file documented as of this encounter Visit Diagnoses Not on filedocumented in this encounter
--- OUTSIDE RECORDS SUMMARY | 2025-02-25 07:52 | XMS_ITS | Data Portability ---
Author Organization [facility] Address [address] [place] [address] Care Team Providers Care Back Maker Name Role Phone LILIAN AREVALO Hydrological Technical Officer Assessment Encounter Date Assessment Date Assessment LastModified by Organization Details LastModified Time 09/05/2024 09/05/2024 -Medications were reviewed and any necessary updates and renewals were made, patient instructed to complete as prescribed. -The potential side effects of medications were discussed. -Counseling was done on care goals and ways to prevent future hospitalizatio ns. -Further treatment per orders listed below. Not available 09/05/2024 10:40:28 10/02/2024 10/02/2024 -Medications were reviewed and any necessary updates and renewals were made, patient instructed to complete as prescribed. -The potential side effects of medications were discussed. -Counseling was done on care goals and ways to prevent future hospitalizatio ns. -Further treatment per orders listed below. Not available 10/02/2024 11:41:05 10/18/2024 10/18/2024 -Medications were reviewed and any necessary updates and renewals were made, patient instructed to complete as prescribed. -The potential side effects of medications were discussed. -Counseling was done on care goals and ways to prevent future hospitalizatio ns. -Further treatment per orders listed below. Not available 10/18/2024 08:42:35 11/29/2024 11/29/2024 -Medications were reviewed and any [...] lumbosacral spine, 2 or 3 view [address], [address], 5 09:17:08 Medication Orders Salonpas (lidocaine) 4 % topical patch [address], [address], 5 11:02:46 Farxiga 10 mg tablet [address], [address], 5 10:07:17 spironolact one 25 mg tablet [address], [address], 5 10:08:26 Eliquis 5 mg tablet [address], [address], 5 10:09:41 furosemide 40 mg tablet [address], [address], 5 10:55:26 atorvastati n 80 mg tablet 2024 025 [facility], [address] [place] [address], [address], 10:11:52 metoprolol succinate ER 50 mg tablet,exte nded release 24 hr 2024 025 [facility], [address] [place] [address], [address], 5 10:55:31 potassium chloride ER 20 mEq tablet,exte nded release 2024 025 [facility], [address] [place] [address], [address], 05:01:20 Patient TargetsNo targets recorded. Patient Instructions Encounter Date Encounter Id Patient Instructions Last Modified By Organization Details Last Modified Time 09/05/2024 [id number] If the diarrhea doesn't resolve after completing the Augmentin then C diff test as discussed. He will be seeing Cardiology in October. Recommend HgbA1c. [email or web address] Not available 09/05/2024 11:51:20 10/18/2024 [id number] He is going to follow up with Hematology after they have a chance to look over his previous records. This afternoon he will be seeing Pulmonology. He just seen Cardiology and will be following up there on 11/14/24. Home Health 3x per week. PT at home. He will make an appointment to follow up here in a month or two for an update . Not available 10/18/2024 10:04:57 11/29/2024 [id number] medical record request* Not available 12/06/2024 09:27:32 medical record request* - please send last d/c summary, labs, any imaging. Not available 12/06/2024 09:27:32 At this time sta y off the Lasix and metoprolol. Follow up with Cardiology. 12/11/24 Keep appointment at [facility] Monday. Consider referral to Nephrology for electrolyte abnormality as discussed. Follow up here as needed. He will be seeing Neurology 12/21/24. Not available 11/29/2024 12:15:17 01/13/2025 [id number] Follow up as needed. The patient will [...] Abnormal Flag Note LastModifiedBy Organization Detail LastModifiedTime 08/16/1908/16/2024 CBC WITH DIFFE RENTI AL/PL ATELE T WBC 4.0 x10e3 /uL 3.4-10 .8 normal Not Available [facility] ([facility]) [address] [place], [address], 08/16/2024 04:09:46 08/16/1908/16/2024 CBC WITH DIFFE RENTI AL/PL ATELE T RBC 3.42 x10e6 /uL 4.14-5 .80 below low normal Not Available [facility] ([facility]) [address] [place], [address], 08/16/2024 04:09:46 08/16/1908/16/2024 CBC WITH DIFFE RENTI AL/PL ATELE T hemoglobin 9.1 g/dL 13.0-1 7.7 below low normal Not Available [facility] ([facility]) [address] [place], [address], 08/16/2024 04:09:46 08/16/1908/16/2024 CBC WITH DIFFE RENTI AL/PL ATELE T hematocrit 31.1 % 37.5-5 1.0 below low normal Not Available [facility] ([facility]) [address] [place], [address], 08/16/2024 04:09:46 06/12/20 25 08/16/2024 CBC WITH DIFFE RENTI AL/PL ATELE T MCV 91 fL 79-97 normal Not Available [facility] ([facility]) [address] [place], [address], 08/16/2024 04:09:46 08/16/19 25 08/16/2024 CBC WITH DIFFE RENTI AL/PL ATELE T MCH 26.6 pg 26.6-3 3.0 normal Not Available [facility] ([facility]) [address] [place], [address], 08/16/2024 04:09:46 08/16/19 25 08/16/2024 CBC WITH DIFFE RENTI AL/PL ATELE T MCHC 29.3 g/dL 31.5-3 5.7 below low normal Not Available [facility] ([facility]) [address] [place], [address], 08/16/2024 04:09:46 08/16/19 25 08/16/2024 CBC WITH DIFFE RENTI AL/PL ATELE T RDW 14.6 % 11.6-1 5.4 Not Available [facility] ([facility]) [address] [place], [address], 08/16/2024 04:09:46 08/16/19 25 08/16/2024 CBC WITH DIFFE RENTI AL/PL ATELE T platelets 169 x10e3 /uL 150-45 0 normal Not Available [facility] ([facility]) [address] [place], [address], 08/16/2024 04:09:46 08/16/19 25 08/16/2024 CBC WITH DIFFE RENTI AL/PL ATELE T neutrophils 57 % not estab. normal Not Available [facility] ([facility]) [address] [place], [address], 08/16/2024 04:09:46 08/16/19 25 08/16/2024 CBC WITH DIFFE RENTI AL/PL ATELE T lymphs 28 % not estab. normal Not Available [facility] ([facility]) [address] [facility], [place], [address], 08/16/2024 04:09:46 08/16/19 25 08/16/2024 CBC WITH DIFFE RENTI AL/PL ATELE T monocytes 12 % not estab. normal Not Available [facility] ([facility]) [address] [facility], [place], [address], 08/16/2024 04:09:46 08/16/19 25 08/16/2024 CBC WITH DIFFE RENTI AL/PL ATELE T eos 2 % not estab. normal Not Available [facility] ([facility]) [address] [facility], [place], [address], 08/16/2024 04:09:46 08/16/19 25 08/16/2024 CBC WITH DIFFE RENTI AL/PL ATELE T basos 1 % not estab. normal Not Available [facility] ([facility]) [address] [place], [address], 08/16/2024 04:09:46 08/16/19 25 08/16/2024 CBC WITH DIFFE RENTI AL/PL ATELE T immature cells APPLICATION CHEMIST Not Available [facility] ([facility]) [address] [place], [address], 08/16/2024 04:09:46 08/16/19 25 08/16/2024 CBC WITH DIFFE RENTI AL/PL ATELE T neutrophils (absolute) 2.3 x10e3 /uL 1.4-7. 0 normal Not Available [facility] ([facility]) [address] [place], [address], 08/16/2024 04:09:46 08/16/19 25 08/16/2024 CBC WITH DIFFE RENTI AL/PL ATELE T lymphs (absolute) 1.1 x10e3 /uL 0.7-3. 1 normal Not Available [facility] ([facility]) [address] [facility], [place], [address], 08/16/2024 04:09:46 08/16/19 25 08/16/2024 CBC WITH DIFFE RENTI AL/PL ATELE T monocytes(ab solute) 0.5 x10e3 /uL 0.1-0. 9 normal Not Available [facility] ([facility]) [address] [facility], [place], [address], 08/16/2024 04:09:46 08/16/19 25 08/16/2024 CBC WITH DIFFE RENTI AL/PL ATELE T eos (absolute) 0.1 x10e3 /uL 0.0-0. 4 normal Not Available [facility] ([facility]) [address] [facility], [place], [address], 08/16/2024 04:09:46 08/16/19 25 08/16/2024 CBC WITH DIFFE RENTI AL/PL ATELE T baso (absolute) 0.0 x10e3 /uL 0.0-0. 2 normal Not Available [facility] ([facility]) [address] [facility], [place], [address], 08/16/2024 04:09:46 08/16/19 25 08/16/2024 CBC WITH DIFFE RENTI AL/PL ATELE T immature granulocytes 0 % not estab. Not Available [facility] ([facility]) [address] [facility], [place], [address], 08/16/2024 04:09:46 08/16/19 25 08/16/2024 CBC WITH DIFFE RENTI AL/PL ATELE T immature grans (abs) 0.0 x10e3 /uL 0.0-0. 1 Not Available [facility] ([facility]) [address] [facility], [place], [address], 08/16/2024 04:09:46 08/16/19 25 08/16/2024 CBC WITH DIFFE RENTI AL/PL ATELE T NRBC APPLICATION CHEMIST Not Available [facility] ([facility]) [address] [facility], [place], [address], 08/16/2024 04:09:46 08/16/19 25 08/16/2024 CBC WITH DIFFE RENTI AL/PL ATELE T hematology comments: APPLICATION CHEMIST Not Available [facility] ([facility]) [address] [facility], [place], [address], 08/16/2024 04:09:46 08/16/19 25 08/16/2024 COMP. METAB OLIC PANEL (14) glucose 79 mg/dL 70-99 normal Not Available [facility] ([facility]) [address] [facility] [place], [address], 08/16/2024 04:09:47 08/16/19 25 08/16/2024 COMP. METAB OLIC PANEL (14) BUN 8 mg/dL 8-27 normal Not Available [facility] ([facility]) [address] [facility], [place], [address], 08/16/2024 04:09:47 08/16/19 25 08/16/2024 COMP. METAB OLIC PANEL (14) creatinine 0.69 mg/dL 0.76-1 .27 below low normal Not Available [facility] ([facility]) [address] [facility] [place], [address], 08/16/2024 04:09:47 08/16/19 25 08/16/2024 COMP. METAB OLIC PANEL (14) eGFR 97 mL/mi n/1.7 3 >59 normal Not Available [facility] ([facility]) [address] [facility] [place], [address], 08/16/2024 04:09:47 08/16/19 25 08/16/2024 COMP. METAB OLIC PANEL (14) BUN/creatini ne ratio 12 10-24 normal Not Available [facility] ([facility]) [address] [facility] [place], [address], 08/16/2024 04:09:47 08/16/19 25 08/16/2024 COMP. METAB OLIC PANEL (14) sodium 142 mmol/ L 134-14 4 normal Not Available [facility] ([facility]) [address] [place], [address], 08/16/2024 04:09:47 08/16/19 25 08/16/2024 COMP. METAB OLIC PANEL (14) potassium 2.8 mmol/ L 3.5-5. 2 below low normal Not Available [facility] ([facility]) [address] [place], [address], 08/16/2024 04:09:47 08/16/19 25 08/16/2024 COMP. METAB OLIC PANEL (14) chloride 106 mmol/ L 96-106 normal Not Available [facility] ([facility]) [address] [facility] [place], [address], 08/16/2024 04:09:47 08/16/19 25 08/16/2024 COMP. METAB OLIC PANEL (14) carbon dioxide, total 24 mmol/ L 20-29 normal Not Available [facility] ([facility]) [address] [facility] [place], [address], 08/16/2024 04:09:47 08/16/19 25 08/16/2024 COMP. METAB OLIC PANEL (14) calcium 8.1 mg/dL 8.6-10 .2 below low normal Not Available [facility] ([facility]) [address] [facility] [place], [address], 08/16/2024 04:09:47 08/16/19 25 08/16/2024 COMP. METAB OLIC PANEL (14) protein, total 4.9 g/dL 6.0-8. 5 below low normal Not Available [facility] ([facility]) [address] [facility] [place], [address], 08/16/2024 04:09:47 08/16/19 25 08/16/2024 COMP. METAB OLIC PANEL (14) albumin 3.0 g/dL 3.8-4. 8 below low normal Not Available [facility] ([facility]) [address] [facility], [place], [address], 08/16/2024 04:09:47 08/16/19 25 08/16/2024 COMP. METAB OLIC PANEL (14) globulin, total 1.9 g/dL 1.5-4. 5 Not Available [facility] ([facility]) [address] [facility] [place], [address], 08/16/2024 04:09:47 08/16/19 25 08/16/2024 COMP. METAB OLIC PANEL (14) bilirubin, total 0.3 mg/dL 0.0-1. 2 normal Not Available [facility] ([facility]) [address] [facility] [place], [address], 08/16/2024 04:09:47 08/16/19 25 08/16/2024 COMP. METAB OLIC PANEL (14) alkaline phosphatase 173 IU/L 44-121 above high normal Not Available [facility] ([facility]) [address] [facility], [place], [address], 08/16/2024 04:09:47 08/16/19 25 08/16/2024 COMP. METAB OLIC PANEL (14) AST (SGOT) 12 IU/L 0-40 normal Not Available [facility] ([facility]) [address] [facility] [place], [address], 08/16/2024 04:09:47 08/16/19 25 08/16/2024 COMP. METAB OLIC PANEL (14) ALT (SGPT) 4 IU/L 0-44 normal Not Available [facility] ([facility]) [address] [facility] [place], [address], 08/16/2024 04:09:47 08/27/19 25 08/27/2024 POTAS SIUM potassium 3.2 mmol/ L 3.5-5. 2 below low normal Not Available [facility] ([facility]) [address], [place], [address], 08/27/2024 04:09:11 10/16/19 25 10/15/2024 XR, chest , 2 view No observ ation record ed. [address], [place], [address], 10/18/2024 09:45:39 12/05/1912/04/2024 cardi ac stres s test No observ ation record ed. [address], [place], [address], 12/05/2024 10:12:10 12/05/19 25 12/04/2024 cardi ac stres s test No observ ation record ed. [address], [place], [address], 12/05/2024 10:13:04 12/14/1911/19/2024 CT, abdom en + pelvi s, w/ contr ast No observ ation record ed. [address] (Replaced By [facility]) [address], [place], [address], 12/13/2024 13:03:11 01/15/20 XR, lumbo sacra l spine , 2 or 3 view No observ ation record ed. [facility] [address], [place], [address], 01/14/2025 11:19:14 Result Notes None recorded. Problems Name Problem SNOMED Code Status Onset Date Resolution Date Notes Provider Name and Address Organization Details Recorded Time History of glaucoma 462765798 Active Aleida Stone null, [place] - [facility] 17:52:11 History of liver disease 178989974 Active Aleida Stone null, [place] - [facility] 5 17:52:11 Postoper ative retentio n of urine 254830878 Active Aleida Stone null, [facility] 5 17:52:11 Subcapit al fracture of neck of femur 360092986 Active Aleida Stone null, [facility] 5 17:52:11 Retentio n of urine 635091396 Active Aleida Stone null, [place] - [facility] 5 17:52:11 Closed fracture of hip 446281047 Active Aleida Stone null, [facility] 5 17:52:11 History of myocardi al infarcti on 924915830 Active Aleida Stone null, [facility] 5 17:52:11 Adenocar cinoma of prostate 730189094 Active Aleida Stone null, [facility] 5 17:52:11 History of circumci maureen 814622353 Active Aleida Stone null, [place] - [facility] 5 17:52:11 Hypokale jamila 68263569 Active Prema Vanessa null, [facility] 5 08:43:51 Parkinso n's disease 63264915 Active Aleida Stone null, [place] - [facility] 5 17:52:11 Arterios clerotic vascular disease 81705514 Active Aleida Stone null, [facility] 5 17:52:11 Erectile dysfunct ion 585213424 Active Aleida Stone null[place] - [facility] 5 17:52:11 History of macular degenera tion 34494738809 219868 Active Aleida Stone null, [facility] 5 09:24:08 Acute retentio n of urine 948921123 Active Aleida Stone null[place] - [facility] 5 09:24:08 Urinary tract infectio us disease 85212557 Active Aleida [place] - [facility] 5 09:24:08 Decline in function al status 34319589024 9106 Active Aleida Stone null[place] - [facility] 5 17:13:21 Anemia 691443943 Active Prema Vanessa null, [place] - [facility] 5 08:43:51 Paroxysm al atrial fibrilla tion 697501069 Active Aleida Stone null, [facility] 5 17:13:21 Acute kidney injury 27504083 Active Aleida Stone null, - [facility] 13:45:01 Acute posthemo rrhagic anemia 479254112 Active Aleida Stone null, - [facility] 5 13:45:01 Shock 75365057 Active Aleida Stone null, - [facility] 13:45:01 Dehydrat ion 12660981 Active Aleida Stone null, - [facility] 13:45:01 Altered mental status 498573167 Active Aleida Stone null, - [facility] 13:45:01 Low blood pressure 82276190 Active Prema Vanessa null, Primary 08:43:51 Catheter -associa gypsy urinary tract infectio n 150249984 Active Aleida Stone null, [place] - [facility] 13:45:01 Gastroin testinal hemorrha ge 57615321 Active Aleida Stone [place] - [facility] 13:45:01 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 16856264 Active Aleida Stone null, - [facility] 5 13:45:01 Hyponatr emia 53873983 Active Aleida Stone null, - [facility] 13:52:00 Communit y acquired pneumoni a 276570923 Active Aleida Stone null, [place] - [facility] 5 17:40:48 History of urinary tract infectio n 43774490834 07 Active Prema Vanessa null, - [facility] 5 08:43:51 History of depressi on 744112670 Active Prema Vanessa null, [facility] 08:43:51 History of anticoag ulant therapy 595575289 Active Prema Vanessa null, [facility] 5 08:43:51 Hypomagn esemia 952045082 Active Prema Vanessa null, [facility] 08/15/202 5 08:43:51 Abdomina l pain 37643216 Active Prema Vanessa null, [place] - [facility] 5 08:43:51 History of brain disorder 026959540 Active Prema Van[place], [place] - [facility] 5 08:43:51 History of Disorder 058971810 Active Prema Van[place], [place] - [facility] 5 08:43:51 Hyperten sive disorder 09578695 Active Prema Van[place], [place] - [facility] 5 08:43:51 History of procedur e 122082439 Active Prema [place] - [facility] 5 08:43:51 History of cataract extracti on 043281014 Active Prema Van[place] - [facility] 5 08:43:51 Phimosis 260011583 Active Prema Van[place] - [facility] 5 08:43:51 Heart disease 12943907 Active Prema Vanessa [place], [place] - [facility] 5 08:43:51 Pain of wrist region 67512374 Active Prema Vanessa [place] - [facility] 5 08:43:51 Acute hypokale jamila 19712963 Active Prema Van[place], [place] - [facility] 5 08:43:51 Disorder of brain 36975458 Active Prema Vanessa [place], [place] - [facility] 5 08:43:51 Injury of head 98756840 Active Prema Van[place] [facility] 5 08:43:51 Asthenia 53525715 Active Aleida Stone null[place] - [facility] 5 14:56:12 Hypoglyc emia 829340610 Active Aleida Stone [place], [place] - [facility] 5 16:32:05 Essentia l hyperten maureen 34932025 Active 2015 Miguel Resendiz, [employer] [address], [place], [address], [place] - [facility] 6 10:48:59 Mixed hyperlip idemia 733468618 Active 2015 Miguel Resendiz, [employer] [address], [place], [address], [place] - [facility] 6 10:52:21 Diabetes mellitus 62834322 Active 2015 Miguel Resendiz, [employer] [address], [place], [address], [place] [facility] 6 10:52:25 History of placemen t of stent for coronary artery disease 317784851 Active 2015 Miguel Resendiz, [employer] [address], [place], [address], [place] [facility] 6 10:52:27 Degenera tive disorder of macula 300020821 Active 2015 Radha Resendez null, [place] - [facility] 6 14:40:51 Cataract 636395413 Active 2015 Radha Marieden [place], [place] - [facility] 6 14:40:57 Cardiac pacemake r in situ 857923587 Active 2015 Radha Marieden [place], [place] - [facility] 6 14:42:23 History of atrial fibrilla tion 737178054 Active 2016 Eric Maria MD [address], [place], [address], [place] - [facility] 7 15:31:13 Uncontro lled type 2 diabetes mellitus 375730010 Active 2016 Eric Maria MD [address], [place], [address], [place] - [facility] 5 11:53:25 History of cerebrov ascular accident 038050361 Active 2016 Radha Marieden null, [place] - [facility] 7 11:11:26 Left ventricu lar hypertro phy 19520268 Active 2016 Radha Resendez null, [place] - [facility] 7 11:11:42 Hyperten sive heart disease 02688585 Completed 201611/25/2019 Eric Maria MD [address], [place], [address], [place] - [facility] 0 15:08:12 Prostate nodule 33172741860 9109 Active 2017 Eric Maria MD [address], [place], [address], [place] [facility] 8 12:38:39 Aneurysm of thoracic aorta 966259245 Active 2018 3.5cm kate li Eric Maria MD [address], [place], [address], [place] [facility] 9 14:25:38 Stented coronary artery 404544839 Active 2018 Eric Maria MD [address], [place], [address], [place] [facility] 9 14:29:39 Lymphade nopathy 42861422 Active 2018 Eric Maria MD [address], [place], [address], [place] [facility] 9 14:40:30 Multiple nodules of lung 663433416 Active 2018 Eric Maria MD [address], [place], [address], [place] [facility] 9 14:40:32 History of non-ST segment elevatio n myocardi al infarcti on 193880179 Active 2018 Eric Maria MD [address], [place], [address], [place] [facility] 9 14:40:39 Sarcoido sis 94203011 Active 2019 Eric Maria MD [address], [place], [address], [place] [facility] 0 16:36:27 Age related macular degenera tion 083334752 Active 2019 Eric Maria MD [address], [place], [address], [place] [facility] 0 15:07:11 Visual impairme nt 945893578 Active 2019 Eric Maria MD [address], [place], [address], [place] [facility] 0 15:07:22 Hyperten sive heart disease 76479416 Active 2019 Eric Maria MD [address], [place], [address], [place] [facility] 0 15:08:12 Prostate specific antigen outside referenc e range 420937944 Active 2019 Eric Maria MD [address], [place], [address], [place] [facility] 0 15:38:47 Dyspnea on exertion 08947172 Active 2019 Eric Maria MD [address], [place], [address], [place] [facility] 0 14:09:57 Atrial fibrilla tion 92998226 Active 2019 Eric Maria MD [address], [place], [address], [place] [facility] 0 12:09:20 History of malignan t neoplasm of prostate 681583498 Active 2020 Eric Maria MD [address], [place], [address], [place] [facility] 1 09:48:01 Type 2 diabetes mellitus 14537755 Active 2020 Eric Maria MD [address], [place], [address], [place] [facility] 1 11:24:54 Acquired thromboc ytopenia 22014997 Active 2020 Eric Maria MD [address], [place], [address], [place] [facility] 1 09:47:00 Hyperlip idemia 95913037 Active 2021 Eric Maria MD [address], [place], [address], [place] [facility] 2 10:05:44 Carcinom a of prostate 657187813 Active 2021 Eric Maria MD [address], [place], [address] [facility] 2 14:43:33 Headache 59751974 Active 2021 Eric Maria MD [address], [place], [address], [place] [facility] 2 14:43:45 Recurren t falls 095877530 Active 2021 Eric Maria MD [address], [place], [address] [facility] 2 14:43:48 Memory impairme nt 605394064 Active 2021 Eric Maria MD [address], [place], [address], [place] [facility] 2 14:43:49 Pain of right knee joint 89606892016 4100 Active 2022 Ankita Maria, [employer] [address], [place], [address], [place] [facility] 3 12:18:01 Cobalami n deficien cy 778694232 Active 2022 Eric Maria MD [address], [place], [address], [place] [facility] 3 11:56:24 Resting tremor 05054902 Active 2022 Eric Maria MD [address], [place], [address], [place] [facility] 13:38:32 Depressi ve disorder 75074368 Active 2022 Eric Maria MD [address], [place], [address], [place] [facility] 13:40:39 Primary insomnia 9855702 Active 2024 Maricarmen Diaz , [employer] [address], [place], [address], [place] [facility] 11:23:59 Pancytop enia 371239554 Active 2024 Eric Maria MD [address], [place], [address] [facility] 11:49:54 Dyspnea 855241809 Active 2024 Eric Maria MD [address], [place], [address] [facility] 11:53:01 Bilatera l pleural effusion 075478903 Active 2024 Eric Maria MD [address], [place], [address] [facility] 11:53:53 Chronic heart failure co-occur rent with normal ejection fraction 18104141611 02 Active 2024 Eric Maria MD [address], [place], [address], [place] [facility] 5 11:54:39 Erick bishop 877807037 Active 2024 Eric Maria MD [address], [place], [address], [place] [facility] 5 11:41:23 Compress ion fracture of thoracic spine 486931227 Active 2024 Erci Maria MD [address], [place], [address], [place] [facility] 5 12:14:46 Acute low back pain 896269441 Active 2024 Maricarmen Diaz , [employer] [address], [place], [address], [place] [facility] 11:00:59 Compress ion fracture of L2 74906797783 603665 Active 2024 Maricarmen Diaz , [employer] [address], [place], [address], [place] [facility] 5 10:16:56 Notes:Some problems listed i n Documents: #[id number], #[id number], #[id number], #[id number], #[id number], #[id number], #[id number], #[id number], #[id number], #[id number] could not be added to this patient's chart. Please review these documents and add these problems to the patient's chart manually as needed. Problem Notes None recorded. Procedures Surgical History Date Name Laterality Status Provider Name and Address Organization Details Recorded Time 11/30/19 Medication Reconcilliation completed Prema [place]essa [place] [facility] 11/29/2024 10:53:48 10/19/19 Medication Reconcilliation completed Prema [place]essa [place] [facility] 10/18/2024 08:42:36 10/03/19 Medication Reconcilliation completed Prema [place] [facility] 10/02/2024 08:08:08 09/06/19 25 Medication Reconcilliation [place] [facility] 09/05/2024 10:40:29 08/09/19 25 Medication Reconcilliation [place] [facility] 08/08/2024 12:49:58 07/11/19 Medication Reconcilliation cancelled [place] [facility] 07/05/2024 16:53:58 05/27/19 25 operation on fracture completed Prema [place] [facility] 08/08/2024 12:58:40 09/28/19 24 Medication Reconcilliation completed Renae Sheth RN [address], [place], [address] [place] [facility] 09/28/2023 09:46:47 05/24/19 [...] 01/14/2019 13:50:34 Pacemaker Placement completed Am[place] [facility] 03/02/2016 14:42:48 Imaging Results None recorded. Procedure Notes None recorded. Medical Equipment None Reported. Allergies Allergen ID Allergen Name Allergen Category Reaction Reaction Severity Criticality Documentation Date Start Date Code Code System Note Provider Name and Address Organization Details Recorded Time [id number] No known allergy (situatio n) Not available Not available Not available Not available 11/20/2024 34476 [id number] SNOMED Aleida Cordon [place], [place] - [...] Recorded on: 01/15/20 14 11:01AM; User: [email or web address] lowe;Est. Completi on: 07/14/19 15;Print ed: 01/15/20 14 [...] Disconti nued on: 04/02/19 14 9:39AM;U ser: [email or web address];Est. Completi on: 05/27/19 13;Print ed: [...] Disconti nued on: 04/02/19 14 9:33AM;U ser: [email or web address] lowe;Printe d: 02/13/20 12 Not Available Not Available [...] e 50 mcg/actua tion nasal spray,briana [employer] [place] 2 sprays every day by intranas al [...] e Mini Pen Needle 31 gauge x /16 DIRECTED 09/30 completed Not Available Not Available [...] e Short Pen Needle 31 gauge x 07/19 DIRECTED active Not Available Not Available No [...] (BMI) Body weight Body temperature Respiratory rate Pain severity - 0-10 verbal numeric rating [Score] - Reported Heart rate Oxygen saturation Systolic And Diastolic Provider Name and Address Organization Details Last Updated DateTime 07/03/202 5 172.72 cm 19.8 kg/m2 30005.0 1 g 98.1 [degF] 17 /min 3 70 /min 98 % 122/58 mm[Hg] Prema [place]essa [place] [facility] 5 10:47:35 Date Recorded Heart rate Oxygen saturation Provider Name and Address Organization Details Last Updated DateTime 10/02/2024 60 /min 100 % Eric Maria MD [address], [place], [address], [place] [facility] 10/02/2024 13:21:37 Date Recorded Body height Body mass index (BMI) Body weight Respiratory rate Body temperature Pain severity - 0-10 verbal numeric rating [Score] - Reported Systolic And Diastolic Provider Name and Address Organization Details Last Updated DateTime 5 172.72 cm 25.5 kg/m2 05942.5 2 g 18 /min 98.1 [degF] 3 146/78 mm[Hg] Prema [place]essa [place] [facility] 12:59:10 Date Recorded Body height Body mass index (BMI) Body weight Body temperature Heart rate Oxygen saturation Respiratory rate Pain severity - 0-10 verbal numeric rating [Score] - Reported Systolic And Diastolic Provider Name and Address Organization Details Last Updated DateTime 5 172.72 cm 20.4 kg/m2 52747.3 8 g 97.8 [degF] 68 /min 97 % 17 /min 0 112/56 mm[Hg] Prema Vanessa [place] [facility] 5 08:53:07 Date Recorded Heart rate Provider Name an d Address Organization Details Last Updated DateTime 11/29/2024 79 /min Eric Maria MD [address], [place], [address], [place] [facility] 11/29/2024 12:11:55 Date Recorded Body height Body mass index (BMI) Body weight Body temperature Respiratory rate Oxygen saturation Pain severity - 0-10 verbal numeric rating [Score] - Reported Systolic And Diastolic Provider Name and Address Organization Details Last Updated DateTime 5 172.72 cm 21.1 kg/m2 42066.5 5 g 98.2 [degF] 17 /min 99 % 0 114/60 mm[Hg] Prema Vanessa [place] [facility] 5 10:58:36 Date Recorded Body height Body mass index (BMI) Body weight Heart rate Oxygen saturation Respiratory rate Pain severity - 0-10 verbal numeric rating [Score] - Reported Body temperature Systolic And Diastolic Provider Name and Address Organization Details Last Updated DateTime 5 172.72 cm 20.7 kg/m2 49179.2 6 g 76 /min 98 % 18 /min 4 97.8 [degF] 126/64 mm[Hg] Pearl Fredo [place] [facility] 5 10:54:05 Social History Question Answer Notes LastModified by Organizat ion Details LastModified Time Tobacco Smoking Status Never Smoker Prema ott [place] [facility] 04/13/2017 09:21:57 Able To Swim? Yes Information not available 08/24/2016 Do You Have An Advance Directive? No [email or web address] Information not available 08/24/2016 Do You Wear A Helmet When Biking? Yes Information not available 08/24/2016 Are You Blind Or Do You Have Difficulty Seeing? Yes Information not available 03/20/2017 What Is Your Level Of Caffeine Consumption? Moderate Information not available 08/24/2016 How Much Tobacco Do You Chew? 1/day Information not available 08/24/2016 Are You Deaf Or Do You Have Serious Difficulty Hearing? No Information not available 03/20/2017 What Type Of Diet Are You Following? DIABETIC [email or web address] Information not available 08/24/2016 Which Illicit Or Recreational Drugs Have You Used? Denies Information not available 08/24/2016 What Is The Highest Grade Or Level Of School You Have Completed Or The Highest Degree You Have Received? [id number] Information not available 05/29/2017 How Many Days Of Moderate To Strenuous Exercise, Like A Brisk Walk, Did You Do In The Last 7 Days? 0 Information not available 05/29/2017 On Those Days That You Engage In Moderate To Strenuous Exercise, How Many Minutes, On Average, Do You Exercise? 0 Information not available 05/29/2017 Swimming/diving Yes [email or web address] Informati on not available 08/24/2016 How Hard Is It For You To Pay For The Very Basics Like Food, Housing, Medical Care, And Heating? Not Very Hard Information not available 03/13/2023 Hard Of Hearing Or Deaf In One Or Both Ears? No Information not available 08/24/2016 Legally Blind In One Or Both Eyes? No [email or web address] Information no t available 08/24/2016 Live Alone Or With Others? With Others [email or web address] Information not available 08/24/2016 What Was The Date Of Your Most Recent Tobacco Screening? 01/13/2025 Information not available 01/13/2025 Do You Use Protection During Sex? Always [email or web address] Information not available 08/24/2016 What Is Your Relationship Status? [email or web address] Information not available 08/24/2016 Seat Belts Used Routinely Yes [email or web address] Information not available 08/24/2016 Are You Sexually Active? Yes [email or web address] Information not available 08/24/2016 Smoke Alarm In Home Yes [email or web address] Information not available 08/24/2016 Are You Passively Exposed To Smoke? No Information no t available 08/24/2016 How Much Tobacco Do You Smoke? No Information not available 06/10/2019 General Stress Level Low [email or web address] Information not available 08/24/2016 Do You Use Sunscreen Routinely? Yes [email or web address] Information not available 08/24/2016 Has Tobacco Cessation Counseling Been Provided? No Information not available 01/13/2025 On What Date Was Tobacco Cessation Counseling Provided? 09/05/2024 Information not available 09/05/2024 Do You Have Difficulty Walking Or Climbing Stairs? Yes Information not available 03/20/2017 Sex: Male Functional Status Question Answer Note LastModified by Organizat ion Details LastModified Time What is your level of alcohol consumption? None [email or web address] Information not available 08/24/2016 Do you or have you ever used smokeless tobacco? Currently chews tobacco 1 PPD Information not available 01/08/2020 Are you currently employed? Yes Information not available 08/24/2016 Are you able to walk independently without assistance or assistive devices? YESWOREST [email or web address] Information not available 08/24/2016 Do you have [...] 06/10/2019 What is your exercise level? Occasional [email or web address] Information not available 08/24/2016 Mental Status Question Answer Note LastModified by Organizat ion Details LastModified Time Do you feel stressed (tense, restless, nervous, or anxious, or unable to sleep at night)? [id number] Information not available 05/29/2017 Do you have difficulty concentrating, remembering or making decisions? No Information no t available 03/20/2017 Family History Relationship Description Onset Age of this Age Resolved Age Notes LastModified by Organization Details LastModified Time Mother Heart murmur Not avail able 01/09/2017 13:55:08 Mother Disorder of macula of retina [email or web address] Not available 2016 13:55:44 Medical History Condition Response Diabetes Y Myocardial Infarction Y Hyperlipidemia Y Immunizations Vaccine Type Date Status Note Provider Name and Address Organization Details Recorded Time pneumococcal polysaccharide PPV23 020 cancelled patient objection Eric Maria MD [address], [address], [place] [facility] 11/25/2019 15:09:36 Tdap 020 cancelled patient objection Eric Maria MD [address], [address], [place] [facility] 11/25/2019 15:09:36 Influenza, split virus, quadrivalent, preservative 020 cancelled patient objection Eric Maria MD [address], [address], [place] [facility] 01/08/2020 12:10:22 pneumococcal polysaccharide PPV23 021 cancelled patient objection Eric Maria MD [address], [place], [address], [place] [facility] 10/14/2020 10:07:15 Tdap 021 cancelled patient objection Eric Maria MD [address], [address], [place] [facility] 10/14/2020 10:07:15 Pneumococcal conjugate PCV 13 cancelled patient objection Eric Maria MD [address], [place], [address], [place] [facility] 02/18/2021 22:29:20 Tdap cancelled patient objection Eric Maria MD [address], [place], [address], [place] [facility] 02/18/2021 22:29:20 Influenza, high-dose, quadrivalent, PF cancelled patient objection Eric Maria MD [address], [place], [address], [place] [facility] 02/18/2021 22:29:20 pneumococcal polysaccharide PPV23 cancelled patient objection Eric Maria MD [address], [place], [address], [place] [facility] 08/09/2021 00:50:08 Tdap cancelled patient objection Eric Maria MD [address], [place], [address], [place] [facility] 02/10/2022 14:40:51 Influenza, high-dose, quadrivalent, PF cancelled patient objection Eric Maria MD [address], [place], [address], [place] [facility] 02/10/2022 14:40:51 Pneumococcal conjugate PCV20, polysaccharide [id number] conjugate, adjuvant, PF cancelled patient objection Eric Maria MD [address], [place], [address], [place] [facility] 02/10/2022 14:40:51 zoster recombinant cancelled patient objection Eric Maria MD [address], [place], [address], [place] [facility] 02/10/2022 14:40:51 Influenza, split virus, quadrivalent, preservative cancelled patient objection Not Available [facility] 03/23/2019 03:54:49 Pneumococcal conjugate PCV 13 cancelled patient objection Not Available [facility] 03/23/2019 03:54:49 Tdap 018 cancelled patient objection Not Available [facility] 03/23/2019 03:54:53 Pneumococcal conjugate PCV 13 018 cancelled patient objection Not Available [facility] 03/23/2019 03:54:54 Tdap 018 cancelled patient objection Not Available [facility] 03/23/2019 03:54:55 Influenza, split virus, quadrivalent, preservative 018 cancelled patient objection Not Available [facility] 03/23/2019 03:54:54 Influenza, high-dose, quadrivalent, PF 023 cancelled patient objection Eric Maria MD [address], [place], [address], [place] [facility] 12/29/2022 23:00:07 Influenza, high-dose, quadrivalent, PF 024 cancelled patient objection Eric Maria MD [address], [place], [address], [place] [facility] 04/09/2023 21:09:03 Pneumococcal conjugate PCV20, polysaccharide [id number] conjugate, adjuvant, PF 024 cancelled patient objection Eric Maria MD [address], [place], [address], [place] [facility] 04/09/2023 21:09:03 zoster recombinant 024 cancelled patient objection Eric Maria MD [address], [place], [address], [place] [facility] 04/09/2023 21:09:03 Influenza, high-dose, trivalent, PF 024 cancelled patient objection Eric Maria MD [address], [place], [address], [place] [facility] 01/05/2024 10:43:43 Pneumococcal conjugate PCV20, polysaccharide [id number] conjugate, adjuvant, PF 024 cancelled patient objection Eric Maria MD [address], [place], [address], [place] [facility] 01/05/2024 10:43:43 zoster recombinant 024 cancelled patient objection Eric Maria MD [address], [place], [address], [place] [facility] 01/05/2024 10:43:43 Past Encounters Encounter ID Performer Location Encounter Start Date Encounter Closed Date Diagnosis/Indication Diagnosis SNOMED-CT Code Diagnosis ICD10 Code Diagnosis IMO Codes Diagnosis Note [id number] Miguel Resendiz APRN [facility] [address] [address] [place] [address] 02/08/2016 09:45:59 02/17/2016 14:10:10 Easy bruising 253042230 R58 Essential hypertension 23597815 I10 History of placement of stent for coronary artery disease 062218403 Z95.5 Diabetes mellitus 946279 09 E13.65 Mixed hyperlipidemia 267 530258 E78.2 [id number] [facility] [address] [place] [address] 03/02/2016 14:05:51 03/02/2016 16:00:05 Bunion [id number] M20.12 Diabetes mellitus 512964 09 E11.9 [id number] Eric Pederson [address] [address] [place] [address] 08/24/2016 11:08:12 08/24/2016 12:03:51 Mixed hyperlipidemia 435908015 E78.2 Essential hypertension 46563667 I10 Diabetes mellitus 941080 09 E11.9 Long-term drug therapy 976088890 Z79.516 [id number] [facility] [address] [address] [place] [address] 01/09/2017 13:38:24 01/09/2017 15:49:07 Diabetes mellitus 77693932 E11.9 Mixed hyperlipidemia 267 377321 E78.2 Renewal of prescription 754043347 Z76.0 Uncontroll ed type 2 diabetes mellitus 487945033 E11.65 [id number] Eric Pederson [address] [address] [place] [address] 01/20/2017 10:42:30 01/20/2017 12:38:17 Body mass index 20-24 - normal 684875587 Z68.24 Uncontroll ed type 2 diabetes mellitus 319287327 E11.65 Neuropathy 001532615 G62 .9 [id number] Eric Maria MD [facility] [address] [address] 03/20/2017 10:00:13 03/20/2017 11:18:49 Uncontrolled type 2 diabetes mellitus 846352281 E11.65 Immunization refused 275 387028 Z28.20 Hyperlipidemia 74677893 E78.5 Long-term drug therapy 599787447 Z79.899 Essential hypertension 39021998 I10 [id number] Eric Maria MD [facility] [address] [place] [address] 04/13/2017 09:10:08 04/13/2017 10:13:11 Diabetes mellitus 18033159 E11.9 Renewal of prescription 141366284 Z76.0 Mixed hyperlipidemia 267 013460 E78.2 Essential hypertension 33114693 I10 Immunization refused 275 076898 Z28.20 [id number] Eric Maria MD [address] [address] [place] [address] 05/29/2017 11:11:44 05/29/2017 13:29:59 Unexplained weight loss 528335890 R63.4 Uncontroll ed type 2 diabetes mellitus 515400895 E11.65 Essential hypertension 43461531 I10 Prostate nodule 56129918 01 [address]3639 N40.2 History of exposure to second hand smoke 214999328 Z77.22 [id number] Eric Maria MD [facility] [address] [place] [address] 01/14/2019 13:42:05 01/14/2019 15:27:40 History of non-ST segment elevation myocardial infarction 217103164 I25.2 History of atrial fibrillation 565074315 Z86.79 Uncontroll ed type 2 diabetes mellitus 116222242 E11.65 Essential hypertension 16983011 I10 Multiple n odules of lung 453609016 R91.8 Lymphadenopathy 70303728 R59.9 Prostate s pecific antigen above reference range 777246529 R97.20 [id number] Eric Maria MD [facility] [address] [place] [address] 01/21/2019 13:02:16 01/21/2019 13:41:39 Prostate specific antigen above reference range 225483904 R97.20 Multiple n odules of lung 471789086 R91.8 Uncontroll ed type 2 diabetes mellitus 988484071 E11.65 History of non-ST segment elevation myocardial infarction 870849700 I25.2 Stented co ronary artery 743323479 Z95.5 [id number] Eric Maria MD [facility] [address] [facility] [place] [address] 03/01/2019 09:33:09 03/01/2019 11:09:10 Uncontrolled type 2 diabetes mellitus 572565376 E11.65 Body mass index 25-29 - overweight 678941161 Z68.26 [id number] Harini Eisenberg APRN [facility] [address] [facility] [place] [place] [address] 06/10/2019 10:16:20 06/10/2019 11:28:31 Viral upper respiratory tract infection 942577605 J06.9 [id number] Eric Maria MD [facility] [address] [facility] [place] [address] 08/14/2019 09:47:06 08/14/2019 10:46:18 Candidiasis of skin 91016000 B37.2 Superficia l ecchymosis 035655725 R58 R forearm [id number] Eric Maria MD [facility] [address] [facility] [place] [address] 08/28/2019 09:41:42 08/28/2019 10:22:59 Superficial ecchymosis 611275611 R58 R forearm, resolved. [id number] Eric Maria MD [facility] [address] [facility] [address] 11/25/2019 14:15:42 11/25/2019 16:07:45 Uncontrolled type 2 diabetes mellitus 782843015 E11.65 Active or passive immunization 675591975 Z23 Cardiac pa cemaker in situ 502092187 Z95.0 History of cerebrovascular accident 933728162 Z86.73 History of non-ST segment elevation myocardial infarction 802746191 I25.2 History of placement of stent for coronary artery disease 341016493 Z95.5 Hypertensi ve heart disease 06596746 I11.9 Sarcoidosis 10349315 D86 .9 Age relate d macular degeneration 720051811 H35.30 Visual impairment 787204 003 H54.7 Peripheral arterial occlusive disease 551895429 I73.9 History of atrial fibrillation 745070193 Z86.79 Essential hypertension 89636422 I10 Dyspnea on exertion 6084 5006 R06.09 [id number] Eric Maria MD [facility] [address] [facility] [place] [address] 01/08/2020 11:35:50 01/08/2020 12:47:01 Uncontrolled type 2 diabetes mellitus 217889932 E11.65 Mixed hyperlipidemia 267 111457 E78.2 Influenza vaccine needed 7391120166 106 Z23 Long-term drug therapy 671515473 Z79.899 Degenerati ve disorder of macula 946649649 H35.30 Essential hypertension 39936518 I10 Atrial fibrillation 4943 6004 I48.91 History of non-ST segment elevation myocardial infarction 440199858 I25.2 History of cerebrovascular accident 339826617 Z86.73 History of placement of stent for coronary artery disease 759246540 Z95.5 Hypertensi ve heart disease 17793246 I11.9 Sarcoidosis 23425028 D86 .9 Visual impairment 135374 003 H54.7 Thrombocyt openic disorder 994478074 D69.6 [id number] Eric Maria MD [facility] [address] [place] [address] 04/10/2020 09:12:24 04/10/2020 10:38:44 Uncontrolled type 2 diabetes mellitus 307156179 E11.65 Mixed hyperlipidemia 267 270075 E78.2 Chest pain 68886251 R07. 9 History of malignant neoplasm of prostate 489038188 Z85.46 presumed, based on elevated PSA, has not had prostate biopsy [id number] Eric [facility] MD [facility] [address] [facility] [place] [address] 07/09/2020 11:08:56 07/09/2020 12:21:08 Uncontrolled type 2 diabetes mellitus 897987297 E11.65 Secondary erectile dysfunction 094920057 N52.39 Mixed hyperlipidemia 267 061075 E78.2 Long-term drug therapy 461854766 Z79.899 Sarcoidosis 23340890 D86 .9 [id number] Eric Maria MD [facility] [address] [facility] [place] [address] 09/04/2020 08:57:33 09/04/2020 09:40:55 Mixed hyperlipidemia 014924262 E78.2 Long-term drug therapy 790402035 Z79.899 Prostate s pecific antigen outside reference range 224824341 R97.8 [id number] Eric Maria MD [facility] [address] [place] [address] 10/14/2020 09:04:25 10/14/2020 10:13:35 Uncontrolled type 2 diabetes mellitus 441423914 E11.65 Essential hypertension 93360378 I10 Vaccine de clined by patient 5449464545 02 Z28.21 Thrombocyt openic disorder 143808637 D69.6 History of malignant neoplasm of prostate 727986170 Z85.46 presumed, based on elevated PSA, has not had prostate biopsy [id number] Eric Maria MD [facility] [address] [place] [address] 11/12/2020 10:33:54 11/12/2020 12:03:19 Type 2 diabetes mellitus 13472404 E11.59 [id number] Eric Maria MD [facility] [address] [place] [address] 02/18/2021 09:18:35 02/18/2021 10:09:07 Type 2 diabetes mellitus 71845735 E11.59 Immunization due 1332774 08 Z28.3 Administra tion of influenza vaccine 02988317 Z23 Uncontroll ed type 2 diabetes mellitus 767842796 E11.65 Acquired thrombocytopenia 07783408 D69.6 Essential hypertension 50630187 I10 History of malignant neoplasm of prostate 783158496 Z85.46 presumed, based on elevated PSA, has not had prostate biopsy Hyperlipidemia 03016283 E78.5 Long-term drug therapy 209046950 Z79.823 [id number] Eric Maria MD [facility] [address] [place] [address] 08/04/2021 09:27:18 08/04/2021 10:22:31 Type 2 diabetes mellitus 14728538 E11.59 Immunization due 0646788 08 Z28.3 Essential hypertension 12921731 I10 Uncontroll ed type 2 diabetes mellitus 893203711 E11.65 Hyperlipidemia 60000498 E78.5 Long-term drug therapy 957848933 Z79.899 Acquired thrombocytopenia 42696867 D69.6 Coronary arteriosclerosis 90136469 I25.119 History of cerebrovascular accident 680483771 Z86.73 History of atrial fibrillation 543948957 Z86.79 [id number] Eric Maria MD [facility] [address] [place] [address] 11/11/2021 08:47:59 11/11/2021 10:21:51 Type 2 diabetes mellitus 70474529 E11.59 History of malignant neoplasm of prostate 428728405 Z85.46 presumed, based on elevated PSA, has not had prostate biopsy Body mass index 25-29 - overweight 549298145 Z68.26 Acquired thrombocytopenia 42155052 D69.6 [id number] Eric Maria MD [facility] [address] [place] [address] 02/09/2022 09:27:05 02/09/2022 10:29:23 Mixed hyperlipidemia 142996326 E78.2 Carcinoma of prostate 25 3885942 C61 Screening for malignant neoplasm of colon 074722830 Z12.11 Immunization due 2317006 08 Z28.39 Viral screening 85048673 4 Z11.59 Influenza vaccine needed 2441210111 106 Z23 Administra tion of pneumococcal vaccine 16086696 Z23 Acquired thrombocytopenia 52846842 D69.6 Essential hypertension 51750305 I10 Uncontroll ed type 2 diabetes mellitus 400231796 E11.65 Headache 37840481 R51.9 Recurrent falls 76656904 2 R29.6 Memory impairment 841712 006 R41.3 Long-term drug therapy 747610301 Z79.795 [id number] [facility] [address] [place], [place] [address] 05/13/2022 08:23:00 05/13/2022 09:28:18 Type 2 diabetes mellitus 39369788 E11.59 Carcinoma of prostate 25 5280593 C61 [id number] [facility] [address] [place], [place] [address] 06/24/2022 08:36:16 06/24/2022 10:26:10 Cardiac pacemaker in situ 911509196 Z95.0 Cardiac tamponade 027215 03 I31.4 Dizziness 963715860 R42 Long-term drug therapy 157878224 Z79.477 [id number] Eric Maria MD [facility] [place] [address] [place], [place] [address] 08/03/2022 11:02:18 08/03/2022 13:25:07 Fall 1421746 W19.XXXA Contusion of right knee 4851230824 7603927 S80.01XA Pain in ri ght lower limb 314293377 M79.967 [id number] Eric Maria MD [place] [address] [place], [place] [address] 11/02/2022 11:34:05 11/02/2022 12:27:21 Pain of right knee joint 7409679141 04361 M25.561 Ice/elevat ion/restFo llow up based on x-ray results [id number] Eric Maria MD [facility] [address] [place], [place] [address] 12/02/2022 14:10:36 12/02/2022 16:48:39 Anemia 079983036 D64.9 Acquired thrombocytopenia 36825781 D69.6 Abnormal r enal function 69545194 R94.4 Uncontroll ed type 2 diabetes mellitus 729822972 E11.65 Chest pain 64395050 R07. 9 [id number] [facility] [place] [address] [place] [address] 12/29/2022 11:16:32 12/29/2022 12:17:30 Uncontrolled type 2 diabetes mellitus 982434692 E11.65 Mixed hyperlipidemia 267 308617 E78.2 Carcinoma of prostate 25 2873802 C61 Cobalamin deficiency 190 249517 E53.8 Long-term drug therapy 910658154 Z79.899 Depressive disorder 3548 9007 F32.A Influenza vaccine needed 5941659190 106 Z23 [id number] Eric Maria MD [place] [address] [place] [address] 01/12/2023 10:11:48 01/12/2023 11:08:37 Depressive disorder 77321157 F32.A Uncontroll ed type 2 diabetes mellitus 464055035 E11.65 [id number] Eric Maria MD [place] [address] [place] [address] 02/09/2023 12:57:32 02/09/2023 14:00:31 Depressive disorder 97832751 F32.A Eruption 454924817 R21 Resting tremor 02351908 G25.2 [id number] Eric Maria MD [place] [address] [place] [address] 03/13/2023 13:26:15 03/13/2023 14:44:14 Depressive disorder 72309238 F32.A Body mass index 25-29 - overweight 046096077 Z68.26 Overweight 936403084 E66 .3 Eruption 355978348 R21 Resting tremor 25456970 G25.2 [id number] Eric Maria MD [place] [address] [place] [address] 04/06/2023 09:33:15 04/06/2023 11:15:40 Type 2 diabetes mellitus 89128033 E11.59 Diarrhea 24682354 R19.7 Carcinoma of prostate 25 7824494 C61 Abnormal r enal function 93775111 R94.4 Influenza vaccine needed 5654453765 106 Z23 Administra tion of pneumococcal vaccine 07617270 Z23 Immunization due 0098879 08 Z28.39 [id number] Eric Maria MD [facility] [place] [address] [place] [address] 04/27/2023 10:58:37 04/27/2023 11:50:12 Type 2 diabetes mellitus 41995708 E11.59 controlled [id number] Eric Maria MD [place] [address] [place] [address] 05/24/2023 10:46:59 05/24/2023 11:33:23 Abrasion of skin of left eyelid 2184693534 2898545 S00.212A Strain of neck muscle 36 2214169 S16.1XXA Fall W19.XXXA [id number] Eric Maria MD [place] [address] [facility] [place] [address] 06/29/2023 11:05:59 06/29/2023 13:40:10 History of malignant neoplasm of prostate 115599466 Z85.46 presumed, based on elevated PSA, has not had prostate biopsy Dyspnea 449192873 R06.02 Type 2 gato betes mellitus 69595239 E11.59 controlled [id number] Eric Maria MD [place] [address] [place] [address] 09/28/2023 08:52:25 09/28/2023 09:58:46 Hyperlipidemia 16940854 E78.5 Acquired thrombocytopenia 24185635 D69.6 Carcinoma of prostate 25 5152322 C61 Type 2 gato betes mellitus 50574262 E11.59 controlled Long-term drug therapy 882128187 Z79.926 [id number] Eric Maria MD [place] [address] [place] [address] 01/04/2024 07:54:44 01/04/2024 08:44:05 Type 2 diabetes mellitus 46735770 E11.59 controlled Influenza vaccine needed 8310144849 106 Z23 Colon canc er screening declined 2582349996 9109 Z53.20 Administra tion of pneumococcal vaccine 62749703 Z23 Immunization due 8506476 08 Z28.39 Carcinoma of prostate 25 9099562 C61 Screening for malignant neoplasm of colon 606740559 Z12.11 [id number] Eric Maria MD [facility] [address] [place] [address] 02/21/2024 08:46:42 02/21/2024 09:43:03 Acute bronchitis 21766802 J20.9 [id number] Eric Maria MD [facility] [address] [facility] [place] [address] 08/08/2024 12:44:37 08/08/2024 13:59:06 Upper gastrointestinal bleeding 64828367 K92.2 110668 Anemia 303585701 D64.9 8176855473 [id number] Maricarmen Diaz APRN [facility] [address] [facility] [place] [address] 08/28/2024 10:44:50 08/28/2024 11:53:06 Primary insomnia 4343707 F51.01 54838 controlled on melatonin. In need of refills. History of placement of stent for coronary artery disease 367750605 Z95.5 has PPM lower rate set at 60. Will get him back on metoprolol .He was in need of new NTG. Last one filled in 2017. Type 2 gaot betes mellitus 82570973 E11.59 BS is doing good. BS 110 am.On Lantus 25 units a day. Hypokalemia 14744543 E87 .6 9791 Improved but persistent .Being on Ramipril would help but am reluctant to restarting at this time until we see how his b/p responds to the re initiation of beta torito. [id number] Eric Maria MD [facility] [address] [place] [facility] [place] [address] 09/05/2024 10:33:58 09/05/2024 11:55:39 Decreased body mass index 8328992 Z68.1 R63.6 6464134547 Right uppe r quadrant pain 910018415 R10.11 7706589 improved Community acquired pneumonia 921659434 J15.9 550853 asymptomat ic Diarrhea 08131733 R19.7 06154016 possibly related to Augmentin. [id number] Eric Crow MD [facility] [address] [place] [address] 10/02/2024 12:41:30 10/02/2024 13:40:34 Fall W19.XXXA 8534620 Contusion of scalp 28517 004 S00.03XA 700445 Asthenia 42425850 R53.1 24831 Using roller walker. Hypokalemia 53391235 E87 .6 [id number] Eric Maria MD [facility] [address] [place] [address] 10/18/2024 08:31:25 10/18/2024 10:16:57 Pancytopenia 099553722 D61.818 59980 Repeated prescription 18 7405564 Z76.0 227888 Dyspnea 051109403 R06.02 51297 improved Essential hypertension 33474843 I10 History of placement of stent for coronary artery disease 817064407 Z95.5 Atrial fibrillation 4943 6004 I48.91 Hyperlipidemia 11181386 E78.5 Cardiac pa cemaker in situ 525442806 Z95.0 Uncontroll ed type 2 diabetes mellitus 216120100 E11.65 90676719 Bilateral pleural effusion 899481035 J90 774235 Chronic he art failure co-occurrent with normal ejection fraction 8737232792 102 I50.32 4068657081 [id number] Eric Maria MD [facility] [address] [place] [address] 11/29/2024 10:42:25 11/29/2024 12:17:18 Medical records review 030535037 Z76.89 5401703560 Hypokalemia 27056856 E87 .6 9791 Hyponatremia 90837018 E8 7.1 11085 Anemia 621459147 D64.9 93546539 Thrombocyt openic disorder 638201487 D69.6 29238 Confusional state 616159 003 R41.0 42514 [id number] Maricarmen Diaz APRN [facility] [address] [place] [address] 01/13/2025 10:47:54 01/13/2025 11:28:27 Acute low back pain 262388874 M54.50 9475164765 sustained after a ground level fall.Will get imaging. Will call with results.Spence ve given lidocaine patches to use 12 hours on 12 hours off. Health Concerns Section Related Observation LastModified by Organization Detai ls LastModified Time None Recorded Concern Status LastModified by Organization Details LastModified Time None Recorded Advance Directives Directive N: Payers Insurance Date Sequence Insurance Name Policy Number Policy Aldrich Covered Member ID Aldrich Member ID Guarantor Name 10/15/2024 SLIDING FEE SCHEDULE - DISCOUNT Gerry Pollock 01/10/2024 1 UMR [id number] Gerry Pollock [id number] Gerry Pollock 08/10/2023 SLIDING FEE SCHEDULE - DISCOUNT Gerry Pollock 01/13/2025 1 [place]MEDICARE REPLACEMENT HMO) [id number] Gerry Pollock [id number] Gerry Pollock 10/17/2023 SLIDING FEE SCHEDULE - DISCOUNT Gerry Pollock 01/13/2025 2 [facility] CHO[facility] - FFS/TRADITIONA L Gerry Pollock [id number] Gerry Pollock 07/08/2024 1 [employer] (MEDICARE REPLACEMENT/AD VANTAGE - PPO) Gerry Pollock [id number] Gerry Pollock 07/08/2024 1 [place] Gerry Pollock [id number] Gerry Pollock Notes Date Note Type Note Provider Name and Address Organization Details Recorded Time 2024 text/h tml Emergency Department Follow-Up RecordReported by PatientEmergency Room Follow-Up RecordFor discharge information, patient reportsname of hospital/urgent care patient was seen: ([facility]),patient presented to hospital/urgent care on or around: actual date 08/29/24,patient presented to hospital for treatment of: (ruq abdominal pain.), andtreatment received by hospital/urgent care: (dx: gallbladder was not functioning properly.).Discharge SummaryDischarge Diagnosis(1) Acute hypotension:Status: AcutePlan:-Patient denies having any issues with low BP but states his BP is always running high.-BP has been stable since admission. Lowest BP is 104/63 which he had on admission.(2) GI bleed:Status: AcuteQualifiers:GI bleed type/associated pathology: unspecified gastrointestinal hemorrhage type Qualified Code(s): K92.2 - Gastrointestinal hemorrhage, unspecifiedPlan:Patient remained clinically and hemodynamically stable with no signs of active GI bleed at this time.Patient was transferred to in June for suspected GI bleed.H/H was very stable during this hospitalization. Will did not obtain a GI consult this time.Continue Protonix and Sucralfate.(3) CAP (community acquired pneumonia):Status: AcuteQualifiers:Laterality: unspecified laterality Qualified Code(s): J18.9 - Pneumonia, unspecified organismPlan:Patient did not have any symptoms of pneumonia.CXR showed cardiomegaly and pulmonary vascular engorgement. Bilateral pleuraleffusions. No evidence of pneumothorax(4) Abdominal pain:Status: AcuteQualifiers:Abdominal location: right upper quadrant Qualified Code(s): R10.11 - Right upper quadrant painPlan:-Etiology of abdominal pain is unclear but may be related to possible acute cholecystitis.-LFTs were unremarkable but alkaline phosphatase was slightly elevated.-Abdominal ultrasound showed gallbladder wall thickening with pericholecystic edema. Findings may represent cholecystitis. No biliary dilatation and negative sonographic Millard sign.-CT abdomen/pelvis showed diffuse gallbladder wall thickening which is a nonspecific finding but may be indicative of cholecystitis.-General surgery was consulted. Recommended no indication for immediate operative intervention. Clinical history was not consistent with acute cholecystitis. Recommend outpatient follow-up for evaluation with additional per rehabilitation prior to operation. If patient returns with acute cholecystitis, cholecystostomy tube will be the most appropriate management.(5) Hypomagnesemia:Status: AcutePlan:Mag was replaced and now back to normal.(6) Hypokalemia:Status: AcutePlan:K was replaced and now back to normal.(7) Hx of Parkinson's disease:Plan:Will continue usual dose of Sinemet.(8) Hx of glaucoma:Plan:Will continue latanoprost eyedrops.(9) Diabetes mellitus:Qualifiers:Diabetes mellitus type: other specified (including ANA) Diabetes mellitus senior care insulin use: with senior care use Diabetes mellitus complication status: without complication Qualified Code(s): E13.9 - Other specified diabetes mellitus without complications; Z79.4 - snf (current) use of insulin He is completing the Augmentin (to finish today). Eric Maria MD [address], [place], [address] , [place] [facility] 15:07:05 2024 text/h tml Emergency Department Follow-Up RecordReported by PatientEmergency Room Follow-Up RecordFor discharge information, patient reportsname of hospital/urgent care patient was seen: [facility]patient presented to hospital/urgent care on or around: actual date 09/29/24,patient presented to hospital for treatment of: (fall. fell (down) the ramp at [facility] . describes rolling backwards down the ramp and falling at the bottom.pt reports he fell backwards from rollator walker hitting the back of his head.),treatment received by hospital/urgent care: (hospital completed multiple scans and d/c pt to home.),patient's condition has: unchanged, andhospital records available at the time of this visit: yes.SPENCE noted since fall, nausea, some SOA. Date: 09/29/24CT Cervical Spine WO Contrast CTIMPRESSION:1. Stable multilevel spondylosis without evidence of acute fracture.2. Stable pleural effusions, doau-wixzpxz-psgv-right. ___Date: 09/29/24CT Head WO Contrast CTIMPRESSION:1. Chronic small vessel ischemia without CT evidence of acute transcortical infarction, mass or hemorrhage.2. Stable encephalomalacia within the left cerebellum, right occipital lobe, and right frontal lobe. wbc 3.5khgb 8.4kplt 153kINR 2.9 (takes Xarelto)PTT 44k 2.9 (hypokalemia)egfr 76total protein 5.6alb 3.3AST, ALT normalmag 1.42 (hypomagnesemia). Had oral potassium in the ER.Had IV magnesium. He has an appointment with Hematology 10/21/24Urology 11/14/24Cardiology in Nov. Eric Maria MD [address], [place], [address] , [place] - [facility] 5 15:06:18 2024 text/h tml Emergency Department Follow-Up RecordReported by PatientEmergency Room Follow-Up RecordFor discharge information, patient reportsname of hospital/urgent care patient was seen: ([facility]),patient presented to hospital/urgent care on or around: actual date 10/07/24,patient presented to hospital for treatment of: (chest pains),patient's condition has: improved, andhospital records available at the time of this visit: no( i think i stayed two or three nights . basically it was observation and his heart was okay .patient has had multiple visits with specialists.).Pancytopenia. Medication refills. DyspneaCAD (history of stent)HTNHLDCardiac pacemakerCardiomyopathyAfibDMBilateral pleural effusionPancytopeniaHFpEF Iron 75Ferritin 113B12 742Folate 6.21WBC 5.4Hgb 10.2Plt 167kK 3.4eGFR 65Normal LFTsLDL 86TSH 1.21 Eric Maria MD [address], [place], [address] , [place] - [facility] 5 12:02:01 2024 text/h tml Emergency Department Follow-Up RecordReported by PatientEmergency Room Follow-Up RecordFor discharge information, patient reportsname of hospital/urgent care [facility]patient presented to hospital/urgent care on or around: actual date 11/22/24,patient presented to hospital for treatment of: (weakness, delusional/confusion, hypokalemia),treatment received by hospital/urgent care: (hypokalemia, gave iv potassium.d/c [facility]urosemide [facility]yesterday at [facility]ology potassium was 2.9),patient's condition has: [...] Lupron)He is going to be seen at [facility] on Monday (and will have blood tests then). At this time not taking Lasix or metoprolol. AnemiaThrombocytopenia. Eric Maria MD [address], [place], [address] , [facility] - [facility] 5 16:32:07 2024 text/h tml ROS as noted in the HPI Patient [...] his legs over getting into bed. Maricarmen Diaz APRN [address], [place], [address] , [place] - [facility] 5 11:23:18
--- OUTSIDE RECORDS SUMMARY | 2025-02-25 07:52 | XMS_ITS | Encounter Summary ---
Author Organization [employer] ([place], [place], [place], [place], [place]) Address [address] [place] [address] Care Team Providers Care Supervisor Pipeline Name Role Phone Unavailable Primary Care Provider Unavailabl e Encounter Details Date Type Department Care Team (Late st Contact Info) Description 01/10/[address] 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 Awaiting call for clinicals. Historical Authorization Comments-Primary : No Authorization Comments Found KATHARINE MOREAU Rn-Utilization Review - 01/10/2019 10:02 EST Electronically signed by Shay Bernardo Conversion Medical Director Occupational Health [employer] at 06/23/2022 11:53 AM CDT documented in this encounter Plan of Treatment Not on file documented as of this encounter Visit Diagnoses Not on filedocumented in this encounter
--- OUTSIDE RECORDS SUMMARY | 2025-02-25 07:52 | XMS_ITS ---
[facility] Created on: January 06, 2025 Gerry Pollock : 1950 Sex: Male Author Organization [employer] Address [address] [place] [id number] Phone Health Concerns Health Status CKD 3 Health Concerns None
[2025-02-25] MEDS: ALBUTEROL 0.083% 2.5 MG/3 ML NEB IH (09:43)
--- NOTE | 2025-02-25 09:45 | PC.NURSE ---
PFT completed without incident. Albuterol 0.083% given via HHN, per written protocol, Pt tolerated tx well. 6 Minute Walk Test refused.
== END 2025-02-25 23:59 | disposition home or self-care (01) ==
LOC: RT 07:48
PROVIDERS: PCP Family Medicine; Visit Provider Internal Medicine Pulmonary Disease
DX: J44.9 Chronic obstructive pulmonary disease, unspecified (principal); R94.2 Abnormal results of pulmonary function studies
CPT/HCPCS: 94060; 94726; 94729